=== PATIENT | female | born 1945 | race Caucasian/White ===

== ENCOUNTER 2016-08-22 09:22 | Inpatient (IN) | payer MEDICARE, OTHER ==
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
[2016-08-22 10:45] LABS: ALT 121 U/L (9-52); AST 90 U/L (14-36); Alkaline Phosphatase 26 U/L (38-126); Amylase <30 U/L (30-110); Anion Gap 10 mmol/L; Blood Urea Nitrogen 18 mg/dL (7-17); Calcium 8.8 mg/dL (8.4-10.2); Carbon Dioxide 30 mmol/L (22-30); Chloride 106 mmol/L (98-107); Glucose 97 mg/dL (74-99); Magnesium 1.7 mg/dL (1.6-2.3); Non-African American GFR(MDRD) >60 (>60 ml/min/1.73 sqM); Potassium 4.6 mmol/L (3.5-5.1); Sodium 146 mmol/L (137-145); Total Bilirubin 0.5 mg/dL (0.2-1.3); Total Protein 5.2 g/dL (6.3-8.2)
[2016-08-22 10:50] LABS: INR 1.5 (<1.1); Prothrombin Time 14.7 sec (9.0-12.0)
[2016-08-22 10:53] LABS: Aty Lym Flag Slight; CH 27.9; CHCM 31.3; HCT 36.8 % (34.0-46.0); HDW 2.23; HGB 11.7 gm/dL (11.4-16.0); MCH 28.6 pg (25.0-35.0); MCHC 31.9 g/dL (31.0-37.0); MCV 89.8 fL (80.0-100.0); Mean Platelet Volume 7.4; RDW 14.1 % (11.5-15.5); WBC 5.8 k/uL (3.8-10.6); WBC (Perox) 5.94
[2016-08-22 11:02] LABS: Creatine Kinase 21 U/L (30-135)
[2016-08-22 11:15] LABS: Creatine Kinase MB 0.5 ng/mL (0.0-2.4); Troponin I <0.012 ng/mL (0.000-0.034)
--- NOTE | 2016-08-22 11:15 | XR ---
EXAMINATION TYPE: XR chest 2V DATE OF EXAM: 08/22/2016 10:52 AM COMPARISON: Prior chest x-ray 04 August 2016 HISTORY: Chest pain, fall TECHNIQUE: Frontal and lateral views of the chest are obtained. FINDINGS: Heart remains enlarged. Patchy basilar density may reflect atelectasis or scarring. No pne umothorax or sizable effusion. Arthropathy noted within the shoulders. Pacemaker leads are stable. Th e patient is rotated. The osseous structures are intact. IMPRESSION: Cardiomegaly. Probable basilar atelectasis. Follow-up as indicated.
--- NOTE | 2016-08-22 11:16 | XR ---
Right shoulder HISTORY: Pain from fall 3 views of the right shoulder, comparison to prior exam November Bone mineralization and alignment are maintained. Hypertrophic change present at the acromioclavicula r joint. Marginal spurring present at the glenohumeral joint. IMPRESSION: No acute fracture or dislocation evident
--- NOTE | 2016-08-22 11:24 | CT ---
EXAMINATION TYPE: CT brain wo con DATE OF EXAM: 08/22/2016 10:45 AM COMPARISON: 01/20/2015 INDICATION: Patient had fall today DLP: 1040 mGycm, Automated exposure control for dose reduction was used. CONTRAST: None CT of the brain is performed utilizing 3 mm thick sections through the posterior fossa and 3 mm thick sections through the remaining calvarium. Study is performed within 24 hours of arri britton to the hospital. No abnormal hyperdensity is present to suggest an acute intracranial hemorrhage. No mass lesion is evident. No acute infarcts are evident. Ventricles and sulci are appropriate for the patient age. Paranasal sinuses and mastoid air cells within the [id number] are clear. IMPRESSIONS: 1. Normal CT Brain
--- NOTE | 2016-08-22 11:55 | US ---
EXAMINATION TYPE: US venous doppler duplex LE DATE OF EXAM: 08/22/2016 11:19 AM COMPARISON: Previous exam 22 May 2014 CLINICAL HISTORY: Swelling, pitting edema, bilaterally, large body habitus. SIDE PERFORMED: Bilateral VESSELS IMAGED: External Iliac Vein (EIV) Common Femoral Vein Deep Femoral Vein Greater Saphenous Vein * Femoral Vein Popliteal Vein Small Saphenous Vein * Proximal Calf Veins- not visualized bilaterally see above limitations (* superficial vessels) Right Leg: Negative for DVT Left Leg: Negative for DVT Grayscale, color Doppler, spectral Doppler imaging performed of the bilateral lower extremity veins f rom the level of the knee to the groin IMPRESSION: No deep venous thrombosis is evident of the lower extremities bilaterally
[2016-08-22 12:15] LABS: Add Differential Manual Differential
[2016-08-22 12:19] LABS: Nucleated Red Blood Cells 0 /100 WBC (0-0); Total Cells Counted 100
[2016-08-22 12:35] LABS: Appearance,Urine Clear (Clear); Bilirubin,Urine Negative (Negative); Glucose,Urine (UA) Negative (Negative); Ketones,Urine Trace (Negative); Leukocyte Esterase,Urine Moderate (Negative); Mucus,Urine Rare /hpf; Nitrite,Urine Negative (Negative); PH, Urine 5.5 (5.0-8.0); Particle Count 2055; Protein,Urine Trace (Negative); RBC,Urine 5 /hpf (0-5); Specific Gravity,Urine 1.018 (1.001-1.035); Squamous Epithelial Cell,Urine 1 /hpf (0-4); UA Billing (MACRO vs. MICRO) MICRO; Urobilinogen,Urine <2.0 mg/dL (<2.0); WBC,Urine 5 /hpf (0-5)
[2016-08-22] MEDS ORDERED: NALOXONE 0.4 MG/ML 1 ML VIAL IV PRN (14:12)
[2016-08-22] MEDS ORDERED: ACETAMINOPHEN TAB 325 MG TAB PO PRN (14:12)
[2016-08-22] MEDS ORDERED: ONDANSETRON 4 MG/2 ML VIAL IVP PRN (14:12)
--- NOTE | 2016-08-22 15:46 | XR ---
Right hip HISTORY: Trauma and pain 2 views of the right hip No comparisons Bone mineralization is mildly reduced. Joint space and alignment are maintained. Small ossific densit y at the level of the greater trochanter may be indicative of calcific tendinitis. There is an ill-de fined area of increased density within the soft tissues of the proximal thigh with some associated ca lcification measuring 1.7 cm. This is at the edge of the film. No periosteal reaction or cortical jj truction. IMPRESSION: No acute fracture or dislocation is evident. Findings within the soft tissues of the prox imal right thigh are indeterminate. Recommend dedicated imaging.
[2016-08-22] MEDS: oxyCODONE-APAP 10-325MG 1 EACH TAB PO SCH ×2 (17:49→22:26)
[2016-08-22] MEDS: clonazePAM 1 MG TAB PO SCH ×2 (17:49→22:26)
[2016-08-22 19:22] LABS: Creatine Kinase <20 U/L (30-135)
[2016-08-22 19:33] LABS: Creatine Kinase MB 0.4 ng/mL (0.0-2.4); Troponin I <0.012 ng/mL (0.000-0.034)
[2016-08-22] MEDS: ceFAZolin 1,000 MG in DEXTROSE/WATER 1 50ML.BAG IVPB SCH (23:14)
[2016-08-22 23:16] LABS: Creatine Kinase <20 U/L (30-135)
[2016-08-22] MEDS: RIVAROXABAN 10 MG TAB PO SCH (23:16)
[2016-08-22] MEDS: levETIRAcetam 500 MG TAB PO SCH (23:16)
[2016-08-22] MEDS: POTASSIUM CHLORIDE ER 20 MEQ TAB.ER PO SCH (23:17)
[2016-08-22] MEDS: ATORVASTATIN 20 MG TAB PO SCH (23:17)
[2016-08-22] MEDS: MAGNESIUM OXIDE 400 MG TAB PO SCH (23:17)
[2016-08-22] MEDS: FLECAINIDE 50 MG TAB PO SCH (23:17)
[2016-08-22 23:30] LABS: Creatine Kinase MB 0.4 ng/mL (0.0-2.4); Troponin I <0.012 ng/mL (0.000-0.034)
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
[2016-08-23 06:07] LABS: Aty Lym Flag Moderate; CH 27.9; CHCM 31.1; HCT 34.8 % (34.0-46.0); HDW 2.24; HGB 11.1 gm/dL (11.4-16.0); Hypochromasia Slight; MCH 28.6 pg (25.0-35.0); MCHC 31.8 g/dL (31.0-37.0); MCV 90.1 fL (80.0-100.0); Mean Platelet Volume 7.2; RBC 3.87 m/uL (3.80-5.40); RDW 14.3 % (11.5-15.5); WBC 4.7 k/uL (3.8-10.6); WBC (Perox) 4.99
[2016-08-23 06:21] LABS: Creatine Kinase <20 U/L (30-135)
[2016-08-23 06:34] LABS: Creatine Kinase MB 0.3 ng/mL (0.0-2.4); Troponin I <0.012 ng/mL (0.000-0.034)
[2016-08-23 06:36] LABS: ALT 109 U/L (9-52); AST 68 U/L (14-36); Add Differential Manual Differential; Alkaline Phosphatase 25 U/L (38-126); Anion Gap 8 mmol/L; Blood Urea Nitrogen 14 mg/dL (7-17); Calcium 8.7 mg/dL (8.4-10.2); Carbon Dioxide 32 mmol/L (22-30); Chloride 103 mmol/L (98-107); Glucose 90 mg/dL (74-99); Non-African American GFR(MDRD) >60 (>60 ml/min/1.73 sqM); Potassium 4.4 mmol/L (3.5-5.1); Sodium 143 mmol/L (137-145); Total Bilirubin 0.5 mg/dL (0.2-1.3); Total Protein 4.8 g/dL (6.3-8.2)
[2016-08-23 06:39] LABS: Nucleated Red Blood Cells 0 /100 WBC (0-0); Total Cells Counted 100
[2016-08-23 06:40] LABS: Manual Review Performed
[2016-08-23] MEDS: PANTOPRAZOLE 40 MG TABLET PO SCH (08:32)
[2016-08-23] MEDS: ceFAZolin 1,000 MG in DEXTROSE/WATER 1 50ML.BAG IVPB SCH ×2 (08:32→16:14)
[2016-08-23] MEDS: MAGNESIUM OXIDE 400 MG TAB PO SCH ×2 (08:33→22:14)
[2016-08-23] MEDS: FLUoxetine HCL 20 MG CAP PO SCH (08:33)
[2016-08-23] MEDS: levETIRAcetam 500 MG TAB PO SCH ×2 (08:33→22:14)
[2016-08-23] MEDS: FLECAINIDE 50 MG TAB PO SCH ×2 (08:34→22:14)
[2016-08-23] MEDS: POTASSIUM CHLORIDE ER 20 MEQ TAB.ER PO SCH (08:34)
[2016-08-23] MEDS: NADOLOL 20 MG TAB PO SCH (08:34)
[2016-08-23] MEDS: SODIUM CHLORIDE 0.9% 1,000 ML IV SCH ×2 (08:41→13:12)
[2016-08-23] MEDS: oxyCODONE-APAP 10-325MG 1 EACH TAB PO SCH ×4 (08:44→22:13)
[2016-08-23] MEDS: clonazePAM 1 MG TAB PO SCH ×4 (08:44→22:13)
[2016-08-23] MEDS ORDERED: FUROSEMIDE 20 MG TAB PO SCH (09:00)
[2016-08-23] MEDS ORDERED: METOLAZONE 2.5 MG TAB PO SCH (09:00)
[2016-08-23] MEDS: MULTIVITAMINS, THERA 1 EACH TAB PO SCH (13:11)
--- NOTE | 2016-08-23 14:18 | P.PN ---
Subjective 71-year-old female being seen on rounds currently resting in bed. Patient's initial presentation was to evaluation for bilateral lower extremity weakness with right shoulder pain with limited range of motion from the right shoulder due to a torn rotator cuff. Patient reportedly has been having increase difficulty participating in her normal ADLs without assistance. Patient reportedly has fallen at least 6 times within the last 48 hours prior to being admitted. Patient states that when she is at home she could barely stand from her toilet.. Patient states she's been very shaky with decreased endurance decrease mobility. Patient was just discharged proximally 2 weeks ago. At that time the patient was noted to have increased swelling of the bilateral lower extremities with pain. Patient states she's not sure why she is falling so much. Patient states that she is noted to be experiencing decrease endurance with limited mobility. Patient states that she does have home health set up and has been followed in the outpatient setting. Additionally patient states physical therapy in the home was supposed to be initiated this week. Patient stated that she had been concerned about the frequent falls 3 presented to the emergency room on August 22 to be reevaluated. X-rays involving the right hip obtained in the emergency room showed no acute fracture or dislocation. Dopplers to the lower extremities were negative for evidence of DVT bilaterally additionally the patient had an x-ray involving the right shoulder it showed no acute fracture as well. CAT scan of the brain obtained in the emergency room was negative as well Patient also states that she's had a recent EEG done at her primary neurologist Dr. diaz office done in July 2016. Objective - Vital Signs Vital signs: Vital Signs Temp 98.1 F 08/23/16 12:00 Pulse 72 08/23/16 12:00 Resp 18 08/23/16 12:00 BP 96/45 08/23/16 12:00 Pulse Ox 93 L 08/23/16 12:00 - Exam Physical exam 71-year-old female sitting up in bed talkative oriented 3 states that when she was up ambulating to the bathroom felt like her legs buckling or latex would give out. Patient reports having chronic right shoulder pain due to a rotator cuff Lungs on room air essentially clear Heart S1-S2 audible and regular denying chest pain Abdomen soft nontender reports no nausea vomiting Extremities no calf tenderness no pedal edema. Does report having chronic right shoulder pain due to rotator cuff - Labs CBC & Chem 7: 08/23/16 05:41 08/23/16 05:41 Assessment and Plan Plan: Impression Present on admission gait dysfunction generalized weakness limited mobility unclear etiology History of chronic atrial fibrillation rate controlled History of sleep apnea with CPAP therapy Mood disorder Anxiety depressive disorder nonspecified Echocardiogram October 2015 left ventricular systolic function normal EF 55-60% with no evidence of a [place] hypertension History of frequent falls unclear etiology Plan PT OT eval recommendations subacute rehab manager case management to pursue placement patient prefers [facility] Await neurology workup Obtain prior outpatient EEG report from Dr. Diaz office Resume home meds Fall precautions Repeat labs in the morning Further recommendations pending DVT and GI prophylaxis The above dictated assessment and findings were discussed with Dr. Mackay. Impression and the plan of care have been dictated as directed. Ev Zhu nurse practitioner acting as a scribe for Dr. Mackay
[2016-08-23] MEDS: TORSEMIDE 20 MG TAB PO SCH (14:19)
[2016-08-23 17:25] LABS: Appearance,Urine Clear (Clear); Bilirubin,Urine Negative (Negative); Glucose,Urine (UA) Negative (Negative); Ketones,Urine Negative (Negative); Leukocyte Esterase,Urine Negative (Negative); Nitrite,Urine Negative (Negative); Protein,Urine Negative (Negative); Specific Gravity,Urine 1.003 (1.001-1.035); UA Billing (MACRO vs. MICRO) CHEM; Urobilinogen,Urine <2.0 mg/dL (<2.0)
[2016-08-23 17:30] VITALS: RESP 16
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
[2016-08-23] MEDS: HYDROcodone/APAP 5-325MG 1 EACH TAB PO PRN (19:47)
[2016-08-23] MEDS: ATORVASTATIN 20 MG TAB PO SCH (22:14)
[2016-08-23] MEDS: RIVAROXABAN 10 MG TAB PO SCH (22:14)
[2016-08-24] MEDS: POTASSIUM CHLORIDE ER 20 MEQ TAB.ER PO SCH ×5 (00:54→20:26)
[2016-08-24] MEDS: ceFAZolin 1,000 MG in DEXTROSE/WATER 1 50ML.BAG IVPB SCH ×4 (00:54→23:36)
[2016-08-24] MEDS: SODIUM CHLORIDE 0.9% 1,000 ML IV SCH (06:39)
[2016-08-24] MEDS: TORSEMIDE 20 MG TAB PO SCH (08:11)
[2016-08-24] MEDS: MAGNESIUM OXIDE 400 MG TAB PO SCH ×3 (08:11→21:04)
[2016-08-24] MEDS: FLUoxetine HCL 20 MG CAP PO SCH (08:12)
[2016-08-24] MEDS: FLECAINIDE 50 MG TAB PO SCH ×2 (08:12→20:25)
[2016-08-24] MEDS: NADOLOL 20 MG TAB PO SCH (08:12)
[2016-08-24] MEDS: levETIRAcetam 500 MG TAB PO SCH ×2 (08:13→20:26)
[2016-08-24] MEDS: HYDROcodone/APAP 5-325MG 1 EACH TAB PO PRN ×2 (08:13→23:46)
[2016-08-24] MEDS: clonazePAM 1 MG TAB PO SCH ×4 (08:13→21:04)
[2016-08-24] MEDS: PANTOPRAZOLE 40 MG TABLET PO SCH (08:13)
[2016-08-24] MEDS: oxyCODONE-APAP 10-325MG 1 EACH TAB PO SCH ×4 (08:23→21:04)
[2016-08-24 09:16] LABS: ALT 87 U/L (9-52); AST 57 U/L (14-36); Alkaline Phosphatase 30 U/L (38-126); Anion Gap 12 mmol/L; Blood Urea Nitrogen 18 mg/dL (7-17); Calcium 8.6 mg/dL (8.4-10.2); Carbon Dioxide 38 mmol/L (22-30); Chloride 90 mmol/L (98-107); Glucose 147 mg/dL (74-99); Non-African American GFR(MDRD) >60 (>60 ml/min/1.73 sqM); Sodium 140 mmol/L (137-145); Total Bilirubin 0.5 mg/dL (0.2-1.3); Total Protein 5.5 g/dL (6.3-8.2)
[2016-08-24] MEDS ORDERED: Potassium Replacement Protocol 1 EACH MISC MISCELLANE PRN (09:36)
[2016-08-24 09:44] LABS: Aty Lym Flag Slight; CH 28.2; CHCM 31.8; HCT 38.6 % (34.0-46.0); HDW 2.22; HGB 12.3 gm/dL (11.4-16.0); MCH 28.3 pg (25.0-35.0); MCHC 31.8 g/dL (31.0-37.0); Mean Platelet Volume 7.8; RBC 4.34 m/uL (3.80-5.40); RDW 14.4 % (11.5-15.5); WBC 5.6 k/uL (3.8-10.6); WBC (Perox) 5.59
[2016-08-24] MEDS ORDERED: POTASSIUM CHLORIDE 10 MEQ, LIDOCAINE 2% INJ 10 MG in SODIUM CHLORIDE 0.9% 100 ML IV SCH (10:00)
--- NOTE | 2016-08-24 10:16 | EEG ---
DATE OF SERVICE: 08/23/[address] Mackay. INTERPRETING PHYSICIAN: Dr. Meli Daniel INDICATIONS FOR EXAMINATION: This patient is a 71-year-old female being evaluated for multiple falls and questionable seizure disorder. AGE: 71Y EEG FINDINGS: A routine 21-channel, awake digital EEG recording was accomplished utilizing the 10 to 20 international system with bipolar and referential montages. The background activity in the most alert resting state consists of a low to medium amplitude, fairly well-developed and well sustained 7 to 8 Hz activity over the posterior head regions. There is a small amount of low amplitude 18 to 20 Hz beta activity seen maximally over the anterior head regions. Muscle and movement artifact was noted on several occasions throughout the tracing. Hyperventilation was not performed. Photic stimulation at flash frequencies of 2 to 30 Hz produced a minimal occipital driving response. No epileptiform discharges were seen. IMPRESSION: This EEG is within normal limits for the patient's age. The EEG failed to reveal any focal, lateralized or epileptiform abnormalities. Clinical correlation is recommended.
[2016-08-24] MEDS: MULTIVITAMINS, THERA 1 EACH TAB PO SCH (11:40)
[2016-08-24 12:21] LABS: Add Differential Manual Differential
[2016-08-24 12:24] LABS: Nucleated Red Blood Cells 0 /100 WBC (0-0); Total Cells Counted 100
[2016-08-24 12:25] LABS: Manual Review Performed
--- NOTE | 2016-08-24 14:36 | P.PN ---
Subjective 71-year-old female currently resting in bed. Continues to report having weakness involving the bilateral lower extremities. Did note the patient's magnesium and potassium level are low potassium this morning is 3. The magnesium level is 1.3. Patient was given Demadex yesterday as a diuretic. Patient is aware of the discharge plan and electrolytes can be corrected and replaced patient will be transferred to subacute rehab [facility] patient's choice Objective - Vital Signs Vital signs: Vital Signs Temp 96.8 F L 08/24/16 07:00 Pulse 89 08/24/16 07:00 Resp 16 08/24/16 07:00 BP 110/56 08/24/16 07:00 Pulse Ox 92 L 08/24/16 07:00 Intake & Output 08/23/16 08/24/16 08/24/16 18:59 06:59 18:59 Weight 99.5 kg Other: # Voids 1 4 1 # Bowel Movements 0 - Exam Physical exam 71-year-old female sitting up in bed talkative oriented 3 states continues to report feeling increased fatigue decreased endurance Lungs on room air essentially clear Heart S1-S2 audible and regular denying chest pain Abdomen soft nontender reports no nausea vomiting Extremities no calf tenderness no pedal edema. Does report having chronic right shoulder pain due to rotator cuff - Labs CBC & Chem 7: 08/24/16 08:29 08/24/16 08:29 Labs: Abnormal Lab Results - Last 24 Hours (Table) 08/24/16 08/24/16 Range/Units 08:29 08:29 Potassium 3.0 L* (3.5-5.1) mmol/L Chloride 90 L (98-107) mmol/L Carbon Dioxide 38 H (22-30) mmol/L BUN 18 H (7-17) mg/dL Glucose 147 H (74-99) mg/dL Magnesium 1.3 L (1.6-2.3) mg/dL AST 57 H (14-36) U/L ALT 87 H (9-52) U/L Alkaline Phosphatase 30 L (38-126) U/L Total Protein 5.5 L (6.3-8.2) g/dL Albumin 3.1 L (3.5-5.0) g/dL Microbiology - Last 24 Hours (Table) 08/23/16 17:15 Urine Culture - Preliminary Urine,Clean Catch Assessment and Plan Plan: Impression Present on admission gait dysfunction generalized weakness limited mobility unclear etiology History of chronic atrial fibrillation rate controlled History of sleep apnea with CPAP therapy Mood disorder Anxiety depressive disorder nonspecified Echocardiogram October 2015 left ventricular systolic function normal EF 55-60% with no evidence of a [place] hypertension History of frequent falls unclear etiology Severe electrolyte abnormality hypo-magnesium and hypokalemia Plan PT OT eval recommendations subacute rehab case packer and sealer to pursue placement patient prefers [facility] Resume home meds Fall precautions Repeat labs in the morning Further recommendations pending DVT and GI prophylaxis Replace her magnesium and potassium repeat the labs in the morning The above dictated assessment and findings were discussed with Dr. Mackay. Impression and the plan of care have been dictated as directed. Ev Zhu nurse practitioner acting as a scribe for Dr. Mackay
[2016-08-24] MEDS: MAGNESIUM SULFATE-D5W PMX 1 GM in DEXTROSE/WATER 1 100ML.BAG IVPB SCH ×3 (14:37→17:49)
--- NOTE | 2016-08-24 17:15 | CDI ---
In responding to this query, please exercise your independent professional judgment. The [facility] Coding Staff and Clinical Documentation Specialists appreciate your assistance in clarifying documentation, maintaining compliance with coding guidelines, accurately documenting patients condition and capturing severity of illness. The fact that a question is asked does not imply that any particular answer is desired or expected. Communication forms are a method of clarifying documentation and are not made part of the Legal Health Record. Thank you in advance for your clarification. Last Revision, June 2015 Jose Almonte [address] [place] [address] Documentation Clarification Form Date: 08/24/2016 5:05:00 PM From: [place] Admit Date: 08/23/2016 1:04:00 PM Patient Name: Zari Mae Visit Number: [id number] Dr. James Mackay and Ev Zhu NP Patient is receiving IV Kefzol per OCT. Patient history/risk factors Severe redness, swelling of lower extremities admitted with cellulitis per H&P and then dropped from dictation Falls and weakness Noncompliant with medications Clinical Indicators: Lab findings: wbc 5.8 on admission Chest xray: probable atelectasis on 08/22 Venous Doppler on 08/22: negative for DVT bilateral low extremities Vital Signs: stable on admission Treatment: Consults: Neurology IV Kefzol In your professional opinion, can you please clarify why the patient is receiving IV Kefzol? Cellulitis (please specify location) - Ruled In? - Ruled Out? Other type of infection (please specify) Unable to determine Please document in your progress notes and discharge summary in order to capture severity of illness and risk of mortality. Include clinical findings that support your diagnosis. FYI: Press F11 to launch patient chart. Place X here if this finding has no clinical significance, is not applicable or if you are not able to provide any additional documentation. [place]
[2016-08-24] MEDS: ATORVASTATIN 20 MG TAB PO SCH (20:26)
[2016-08-24] MEDS: RIVAROXABAN 10 MG TAB PO SCH (20:26)
[2016-08-24] MEDS: diphenhydrAMINE 25 MG CAP PO PRN (21:06)
--- NOTE | 2016-08-25 01:23 | P.PN ---
Subjective Patient is a 71 year old female being evaluated for bilateral leg weakness. Patient states that her leg symptoms have not changed from yesterday. We did have her undergo a laboratory tests for creatine kinase to rule out early myopathy. She has been on statin medication for several years. The patient is being evaluated for transfer to subacute rehab at [facility] on the [place]. She denies any headache or focal weakness at this time. She would benefit from aggressive PT OT evaluations to get her up and ambulating without difficulty in the future. The patient is still expressing desires to try and go home rather than to the [facility]. We have recommended that she be evaluated in the subacute rehab unit first for at least a week or 2 before discharge to her home. We will continue to follow her progress closely. Her overall prognosis at this time remains guarded. She has had no further seizure activity. We are still awaiting her anticonvulsant blood levels to return from the laboratory. We will continue to follow her very closely over the next few days. Objective - Vital Signs Vital signs: Vital Signs Temp 97.1 F L 08/24/16 15:00 Pulse 76 08/24/16 15:00 Resp 16 08/24/16 15:00 BP 94/44 08/24/16 15:00 Pulse Ox 93 L 08/24/16 15:00 Intake & Output 08/24/16 08/24/16 08/25/16 06:59 18:59 06:59 Weight 99.5 kg Other: # Voids 4 1 # Bowel Movements 0 - Exam Physical examination: PHYSICAL EXAMINATION: Patient is resting comfortably in bed. VITAL SIGNS: Blood pressure is [114/53]. Heart rate is [72]. Respiration is [16] . Temperature is [97.1]. HEENT: Head is atraumatic, neck is supple, there were no carotid bruits. CHEST: Lungs are clear to auscultation and percussion. CARDIAC: S1, S2 normal rate and rhythm. There is no murmur. ABDOMEN: Soft and nontender. Bowel sounds are present. EXTREMITIES: There is no pedal edema. Peripheral pulses are present. Neurological examination: This patient's neurological examination is unchanged from yesterday. She continues to have bilateral lower extremity weakness as well as tenderness on palpation of several muscle groups. - Labs CBC & Chem 7: 08/24/16 08:29 08/24/16 14:37 Labs: Abnormal Lab Results - Last 24 Hours (Table) 08/24/16 08/24/16 Range/Units 08:29 08:29 Potassium 3.0 L* (3.5-5.1) mmol/L Chloride 90 L (98-107) mmol/L Carbon Dioxide 38 H (22-30) mmol/L BUN 18 H (7-17) mg/dL Glucose 147 H (74-99) mg/dL Magnesium 1.3 L (1.6-2.3) mg/dL AST 57 H (14-36) U/L ALT 87 H (9-52) U/L Alkaline Phosphatase 30 L (38-126) U/L Total Protein 5.5 L (6.3-8.2) g/dL Albumin 3.1 L (3.5-5.0) g/dL Microbiology - Last 24 Hours (Table) 08/23/16 17:15 Urine Culture - Final Urine,Clean Catch Assessment and Plan (1) Complex partial seizure disorder Status: Acute Code(s): G40.209 - LOCAL-REL SYMPTC EPI W CMPLX PRT SEIZ,NOT NTRCT,W/O STAT EPI (2) Muscle weakness of lower extremity Status: Acute Code(s): M62.81 - MUSCLE WEAKNESS (GENERALIZED) (3) Chronic atrial fibrillation Status: Acute Code(s): I48.2 - CHRONIC ATRIAL FIBRILLATION (4) Dehydration Status: Acute Code(s): E86.0 - DEHYDRATION (5) Hyperlipemia Status: Acute Code(s): E78.5 - HYPERLIPIDEMIA, UNSPECIFIED Plan: This patient is a 71-year-old right-handed white female admitted to hospital with history of multiple falls over the past 2-1/2 weeks at home. She was brought into the emergency room where she was further evaluated. She underwent a computed tomography scan of the brain which failed to reveal any acute changes. This was reported negative for acute stroke and hemorrhage. She has a history of underlying seizure disorder and has been taking Keppra monotherapy for seizure prophylaxis. We have ordered a Keppra blood level and we'll adjust as necessary. She underwent a repeat EEG today which was reviewed and is within normal limits for age with no active seizure focus. She does have evidence of muscle weakness in both lower extremities. There is some degree of myalgia and arthralgias at the knee joint. We have recommended to check a creatine kinase level to rule out early myopathy. Patient should continue with PT OT evaluation for possible subacute rehab placement. Laboratory testing reveals the patient to have normal CK blood levels. This appears to be unlikely cause of her muscle pain and tenderness. We would recommend that she strongly consider undergoing inpatient rehab. Her overall prognosis at this time remains guarded. We will continue close neurological follow-up for the patient during this admission.
[2016-08-25] MEDS: SODIUM CHLORIDE 0.9% 1,000 ML IV SCH (02:10)
[2016-08-25] MEDS: HYDROcodone/APAP 5-325MG 1 EACH TAB PO PRN (03:55)
[2016-08-25 07:57] VITALS: BP 108/83; PULSE 86; TEMP 97
[2016-08-25] MEDS: FLECAINIDE 50 MG TAB PO SCH (07:59)
[2016-08-25] MEDS: PANTOPRAZOLE 40 MG TABLET PO SCH (07:59)
[2016-08-25] MEDS: clonazePAM 1 MG TAB PO SCH ×2 (07:59→13:12)
[2016-08-25] MEDS: ceFAZolin 1,000 MG in DEXTROSE/WATER 1 50ML.BAG IVPB SCH (07:59)
[2016-08-25] MEDS: MAGNESIUM OXIDE 400 MG TAB PO SCH (08:00)
[2016-08-25] MEDS: FLUoxetine HCL 20 MG CAP PO SCH (08:00)
[2016-08-25] MEDS: NADOLOL 20 MG TAB PO SCH (08:00)
[2016-08-25] MEDS: levETIRAcetam 500 MG TAB PO SCH (08:00)
[2016-08-25] MEDS: oxyCODONE-APAP 10-325MG 1 EACH TAB PO SCH ×2 (08:01→13:12)
[2016-08-25] MEDS: TORSEMIDE 20 MG TAB PO SCH (08:01)
[2016-08-25] MEDS: POTASSIUM CHLORIDE ER 20 MEQ TAB.ER PO SCH (08:01)
[2016-08-25 09:24] LABS: ALT 60 U/L (9-52); AST 40 U/L (14-36); Alkaline Phosphatase 31 U/L (38-126); Anion Gap 13 mmol/L; Blood Urea Nitrogen 21 mg/dL (7-17); Carbon Dioxide 33 mmol/L (22-30); Chloride 92 mmol/L (98-107); Glucose 115 mg/dL (74-99); Non-African American GFR(MDRD) >60 (>60 ml/min/1.73 sqM); Potassium 3.6 mmol/L (3.5-5.1); Sodium 138 mmol/L (137-145); Total Bilirubin 0.4 mg/dL (0.2-1.3); Total Protein 5.5 g/dL (6.3-8.2)
[2016-08-25] MEDS: diphenhydrAMINE 25 MG CAP PO PRN (10:32)
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
[2016-08-25] MEDS ORDERED: HYDROCORTISONE 10 MG TAB PO SCH (13:00)
[2016-08-25] MEDS: MULTIVITAMINS, THERA 1 EACH TAB PO SCH (13:12)
--- NOTE | 2016-08-25 13:18 | P.DS ---
Providers Date of admission: 08/23/16 13:04 Expected date of discharge: 08/25/16 Attending physician: James Forde Consults: 08/25/16 08:25 Consult Physician Routine Consulting Provider: Christianne Palmer Consult Reason/Comments: adrenal insufficiency/copd Do you want consulting provider notified?: Yes Primary care physician: [facility] Course: Patient's initial presentation was to evaluation for bilateral lower extremity weakness with right shoulder pain with limited range of motion from the right shoulder due to a chronic torn rotator cuff. Patient reportedly has been having increase difficulty participating in her normal ADLs without assistance. Patient reportedly has fallen at least 6 times within the last 48 hours prior to being admitted. Patient states that when she is at home she could barely stand from her toilet.. Patient states she's been very shaky with decreased endurance decrease mobility. Patient was just discharged 2 weeks ago. At that time the patient was noted to have increased swelling of the bilateral lower extremities with pain. Patient states she's not sure why she is falling so much. Patient states that she is noted to be experiencing decrease endurance with limited mobility. Patient states that she does have home health set up and has been followed in the outpatient setting. Additionally patient states physical therapy in the home was supposed to be initiated this week. Patient stated that she had been concerned about the frequent falls presented to the emergency room on August 22 to be reevaluated. X-rays involving the right hip obtained in the emergency room showed no acute fracture or dislocation. Dopplers to the lower extremities were negative for evidence of DVT bilaterally additionally the patient had an x-ray involving the right shoulder it showed no acute fracture as well. CAT scan of the brain obtained in the emergency room was negative as well Patient also states that she's had a recent EEG done at her primary neurologist Dr. hager office done in July 2016. Dr. Senthil Daniel neurology did see patient at the request of the attending for multiple falls with possible seizure disorder. They recommended that the patient have a repeat EEG which was done which showed no acute findings CPK was not elevated it was 30. Patient's magnesium and potassium were corrected. Additionally patient's cortisone level was repeated on the 6 it was noted to be normal at 12 . Physical and occupational therapy recommended that the patient would benefit from subacute rehab given the patient's history of frequent falls Pulmonary consultation was requested patient was seen by dr holland . Patient does have a history of COPD with asthma and does follow-up with Dr. Ross in the office. Patient reportedly does wear [id number] supplemental oxygen 2-3 L. Additionally patient stated that she's been told she has obstructive sleep apnea but does not wear CPAP patient states she cannot tolerate it causes sores on her face. Additionally patient reports having a history of a pulmonary emboli diagnosed in 2009 has been on Xarelto . Patient does have a history of smoking 1 pack a day for 20 years quit 25 years ago. Does have a home nebulizers states she uses it 4 times daily. Pulmonary recommended continuing with the current recommendations that there is no evidence of an acute exacerbation of COPD and from a pulmonary perspective patient could be transferred to subacute rehab On the day of transfer the patient from all consulting physicians was felt to be medically stable and appropriate proceed with a transfer to [facility] patient' s choice for subacute rehab impression discharge diagnosis Chronic hypoxic respiratory failure supplemental home O2 2-3 L [id number] COPD with asthma no evidence of acute exacerbation stable History of a pulmonary emboli 2009 on Xarelto Obstructive sleep apnea noncompliant with CPAP therapy Former tobacco abuse quit 25 years prior Present on admission mild cellulitis bilateral lower extremities Present on admission gait dysfunction generalized weakness limited mobility unclear etiology History of chronic atrial fibrillation rate controlled Mood disorder Anxiety depressive disorder nonspecified Echocardiogram October 2015 left ventricular systolic function normal EF 55-60% with no evidence of a [place] hypertension History of frequent falls unclear etiology Severe electrolyte abnormality hypo-magnesium and hypokalemia History of an adrenal insufficiency History of a seizure disorder on Keppra Chronic pain with narcotic tendency The above dictated assessment and findings were discussed with dr eula San and the plan of care have been dictated as directed. Ev Zhu nurse practitioner acting as a scribe for dr forde Patient Condition at Discharge: Stable Plan - Discharge Summary New Discharge Prescriptions: Cephalexin [Keflex] 500 mg PO Q8H #21 capsule HYDROcodone/APAP 5-325MG [Jermyn 5-325] 1 each PO Q4HR PRN #30 tab PRN Reason: Moderate Pain Magnesium Oxide [Mag-Ox] 400 mg PO TID #90 tablet Torsemide [Demadex] 20 mg PO DAILY #30 tab oxyCODONE-APAP 10-325MG [Percocet 10-325 mg] 1 tab PO QID #30 tab Discharge Medication List Omeprazole 40 mg PO QAM 07/07/14 [History] Rivaroxaban [Xarelto] 20 mg PO HS 07/07/14 [History] Nadolol [Corgard] 20 mg PO DAILY 07/08/14 [History] Simvastatin [Zocor] 40 mg PO HS 07/08/14 [History] diphenhydrAMINE HCL [Benadryl] 25 mg PO DAILY PRN 11/24/15 [History] Flecainide Acetate [Tambocor] 100 mg PO Q12HR 02/16/16 [History] Multivitamins, Thera [Multivitamin] 1 tab PO DAILY 02/16/16 [History] Potassium Chloride [Klor-Con 20] 40 meq PO BID 02/17/16 [History] clonazePAM [KlonoPIN] 1 mg PO QID 02/17/16 [History] FLUoxetine HCL [Sarafem] 60 mg PO QAM 08/04/16 [History] levETIRAcetam [Keppra] 1,500 mg PO Q12HR 08/04/16 [History] Metolazone [Zaroxolyn] 2.5 mg PO Q48H 08/22/16 [History] Cephalexin [Keflex] 500 mg PO Q8H #21 capsule 08/25/16 [Rx] HYDROcodone/APAP 5-325MG [Jermyn 5-325] 1 each PO Q4HR PRN #30 tab 08/25/16 [Rx] Magnesium Oxide [Mag-Ox] 400 mg PO TID #90 tablet 08/25/16 [Rx] Torsemide [Demadex] 20 mg PO DAILY #30 tab 08/25/16 [Rx] oxyCODONE-APAP 10-325MG [Percocet 10-325 mg] 1 tab PO QID #30 tab 08/25/16 [Rx] Follow up Appointment(s)/Referral(s): James Forde MD [Primary Care Provider] - 1-2 days Patient Instructions/Handouts: Heart Failure (DC) Discharge Disposition: TRANSFER TO SNF/ECF
--- NOTE | 2016-08-25 19:54 | P.PN ---
Subjective Patient is a 71 year old female being evaluated for bilateral leg weakness. Patient states that her leg symptoms have not changed from yesterday. We did have her undergo a laboratory tests for creatine kinase to rule out early myopathy. She has been on statin medication for several years. The patient is being evaluated for transfer to subacute rehab at [facility] on the [address] [place]. She denies any headache or focal weakness at this time. She would benefit from aggressive PT OT evaluations to get her up and ambulating without difficulty in the future. The patient is still expressing desires to try and go home rather than to the [facility]. We have recommended that she be evaluated in the subacute rehab unit first for at least a week or 2 before discharge to her home. We will continue to follow her progress closely. Her overall prognosis at this time remains guarded. She has had no further seizure activity. We are still awaiting her anticonvulsant blood levels to return from the laboratory. Patient is being considered for transfer to subacute rehab later today. We are still awaiting her final results on the Kera blood level for seizure management. We will check her level and adjust her medication if necessary. We will continue to follow her very closely over the next few days. Objective - Vital Signs Vital signs: Vital Signs Temp 97.0 F L 08/25/16 07:56 Pulse 86 08/25/16 07:56 Resp 16 08/25/16 07:56 BP 108/83 08/25/16 07:56 Pulse Ox 91 L 08/25/16 07:56 Intake & Output 08/24/16 08/25/16 08/25/16 18:59 06:59 18:59 Intake Total 600 Balance 600 Weight 90.5 kg Intake: Intake, IV Titration 600 Amount Sodium Chloride 0.9% 1, 550 000 ml @ 50 mls/hr IV . Q20H [facility] Rx#:[id number] ceFAZolin 1,000 mg In 50 Dextrose/Water 1 50ml.bag @ 100 mls/hr IVPB Q8HR [facility] Rx#:[id number] Other: Voiding Method Toilet # Voids 1 0 2 - Exam Physical examination: PHYSICAL EXAMINATION: Patient is resting comfortably in bed. VITAL SIGNS: Blood pressure is [108/83]. Heart rate is [86]. Respiration is [16] . Temperature is [97.0]. HEENT: Head is atraumatic, neck is supple, there were no carotid bruits. CHEST: Lungs are clear to auscultation and percussion. CARDIAC: S1, S2 normal rate and rhythm. There is no murmur. ABDOMEN: Soft and nontender. Bowel sounds are present. EXTREMITIES: There is no pedal edema. Peripheral pulses are present. Neurological examination: This patient's neurological examination is unchanged from yesterday. She continues to have bilateral lower extremity weakness as well as tenderness on palpation of several muscle groups. - Labs CBC & Chem 7: 08/24/16 08:29 08/25/16 08:24 Labs: Abnormal Lab Results - Last 24 Hours (Table) 08/24/16 08/25/16 Range/Units 08:29 08:24 Chloride 92 L (98-107) mmol/L Carbon Dioxide 33 H (22-30) mmol/L BUN 21 H (7-17) mg/dL Glucose 115 H (74-99) mg/dL AST 40 H (14-36) U/L ALT 60 H (9-52) U/L Alkaline Phosphatase 31 L (38-126) U/L Total Protein 5.5 L (6.3-8.2) g/dL Albumin 3.0 L (3.5-5.0) g/dL Levetiracetam 66.8 H (3.0-60.0) ug/mL Microbiology - Last 24 Hours (Table) 08/23/16 17:15 Urine Culture - Final Urine,Clean Catch Assessment and Plan (1) Complex partial seizure disorder Status: Acute Code(s): G40.209 - LOCAL-REL SYMPTC EPI W CMPLX PRT SEIZ,NOT NTRCT,W/O STAT EPI (2) Muscle weakness of lower extremity Status: Acute Code(s): M62.81 - MUSCLE WEAKNESS (GENERALIZED) (3) Chronic atrial fibrillation Status: Acute Code(s): I48.2 - CHRONIC ATRIAL FIBRILLATION (4) Dehydration Status: Acute Code(s): E86.0 - DEHYDRATION (5) Hyperlipemia Status: Acute Code(s): E78.5 - HYPERLIPIDEMIA, UNSPECIFIED Plan: This patient is a 71-year-old right-handed white female admitted to hospital with history of multiple falls over the past 2-1/2 weeks at home. She was brought into the emergency room where she was further evaluated. She underwent a computed tomography scan of the brain which failed to reveal any acute changes. This was reported negative for acute stroke and hemorrhage. She has a history of underlying seizure disorder and has been taking Keppra monotherapy for seizure prophylaxis. We have ordered a Keppra blood level and we'll adjust as necessary. She underwent a repeat EEG today which was reviewed and is within normal limits for age with no active seizure focus. She does have evidence of muscle weakness in both lower extremities. There is some degree of myalgia and arthralgias at the knee joint. We have recommended to check a creatine kinase level to rule out early myopathy. Patient should continue with PT OT evaluation for possible subacute rehab placement. Laboratory testing reveals the patient to have normal CK blood levels. This appears to be unlikely cause of her muscle pain and tenderness. We would recommend that she strongly consider undergoing inpatient rehab. Patient may be discharged to a subacute rehab center later today. Her overall prognosis at this time remains guarded. We will continue close neurological follow-up for the patient during this admission.
== END 2016-08-25 15:38 | DRG 603 ==
LOC: EC 09:22 → 3OBS 14:12 → OBSVTOIN 08-23 13:04 → 4MS4W 08-23 14:25
PROVIDERS: ADMIT Family Medicine; ATTEND Family Medicine
DX: L03.115 Cellulitis of right lower limb (principal); J96.11 Chronic respiratory failure with hypoxia; E27.40 Unspecified adrenocortical insufficiency; G40.209 Localization-related (focal) (partial) symptomatic epilepsy and epileptic syndromes with complex partial seizures, not intractable, without status epilepticus; I48.0 Paroxysmal atrial fibrillation; I50.9 Heart failure, unspecified; E83.42 Hypomagnesemia; F32.9 Major depressive disorder, single episode, unspecified; I48.2 Chronic atrial fibrillation; L03.116 Cellulitis of left lower limb; E78.5 Hyperlipidemia, unspecified; E86.0 Dehydration; E87.6 Hypokalemia; F41.9 Anxiety disorder, unspecified; G47.33 Obstructive sleep apnea (adult) (pediatric); G89.29 Other chronic pain; J44.9 Chronic obstructive pulmonary disease, unspecified; J45.909 Unspecified asthma, uncomplicated; K21.9 Gastro-esophageal reflux disease without esophagitis; M19.90 Unspecified osteoarthritis, unspecified site; M79.7 Fibromyalgia; M81.0 Age-related osteoporosis without current pathological fracture; G43.909 Migraine, unspecified, not intractable, without status migrainosus; L40.9 Psoriasis, unspecified; R29.6 Repeated falls; I25.10 Atherosclerotic heart disease of native coronary artery without angina pectoris; M54.9 Dorsalgia, unspecified; R26.9 Unspecified abnormalities of gait and mobility; R53.1 Weakness; M75.101 Unspecified rotator cuff tear or rupture of right shoulder, not specified as traumatic; Z99.81 Dependence on supplemental oxygen; Z91.19 Patient's noncompliance with other medical treatment and regimen; Z91.040 Latex allergy status; Z88.5 Allergy status to narcotic agent; Z88.8 Allergy status to other drugs, medicaments and biological substances; Z79.01 Long term (current) use of anticoagulants; Z79.899 Other long term (current) drug therapy; Z87.891 Personal history of nicotine dependence; Z85.51 Personal history of malignant neoplasm of bladder; Z95.0 Presence of cardiac pacemaker; Z82.49 Family history of ischemic heart disease and other diseases of the circulatory system
CPT/HCPCS: 36415; 70450; 71020; 73502; 80053; 80177; 81001; 81003; 82150; 82533; 82550; 82553; 83690; 83735; 83880; 84132; 84484; 85025; 85610; 85730; 87086; 93005; 93965; 93970; 95816; 96365; 96366; 99285

== ENCOUNTER → 2016-10-27 | Outpatient (CLI) | payer MEDICARE, OTHER ==
[2016-10-27 13:11] LABS: Blood Urea Nitrogen 14 mg/dL (7-17); Non-African American GFR(MDRD) >60 (>60 ml/min/1.73 sqM)
--- NOTE | 2016-10-27 14:28 | CT ---
EXAMINATION TYPE: CT chest w con DATE OF EXAM: 10/27/2016 2:15 PM COMPARISON: 02/09/2015 HISTORY: 71-year-old female with COPD and asthma, patient currently on O2, shortness of breath and ch est pain. TECHNIQUE: Contiguous axial scanning of the chest after the administration of 100 mL of Omnipaque 300 . Coronal/sagittal reconstructions performed. CT DLP: 470.7mGycm. Automatic exposure control utilized for a dose reduction. FINDINGS: Left anterior chest wall pacemaker generator with right atrial and right ventricular leads. Heart is upper limits of normal in size without pericardial effusion. Ascending aorta is ectatic at 3.7 cm. Conventional arch vessel branching anatomy. 1.8 cm left thyroid lobe nodule similar to 02/09/2015. No thoracic lymphadenopathy. There is enlarged caliber to the main right and left pulmonary arteries and 2.7 and 2.9 cm, respectiv soha, suggesting underlying pulmonary arterial hypertension. Mild dependent atelectasis. Additional strandy atelectasis or scarring at the lung bases similar to p rior. A couple scattered emphysematous cysts are present. Visualized upper abdomen shows no gross abnormality. Endplate spondylotic change throughout the thoracic spine. IMPRESSION: 1. Correlate for underlying pulmonary arterial hypertension. A couple scattered emphysematous cysts a re noted. 2. Strandy atelectasis and scarring at the lung bases. Otherwise, no acute pulmonary process. 3. Stable 1.8 cm left thyroid lobe nodule as compared to 02/09/2015.
== END | disposition home or self-care (01) ==
LOC: RADCTMAIN 12:34
PROVIDERS: ATTEND Internal Medicine Sleep Medicine
DX: J43.9 Emphysema, unspecified (principal); J98.11 Atelectasis; J98.4 Other disorders of lung
CPT/HCPCS: 82565; 84520; 71260; 36415; Q9967

== ENCOUNTER → 2016-11-07 | Outpatient (CLI) | payer MEDICARE, OTHER ==
[2016-11-07 12:08] LABS: Anion Gap 10 mmol/L; Blood Urea Nitrogen 16 mg/dL (7-17); Calcium 9.5 mg/dL (8.4-10.2); Carbon Dioxide 33 mmol/L (22-30); Chloride 99 mmol/L (98-107); Glucose 87 mg/dL (74-99); Magnesium 1.6 mg/dL (1.6-2.3); Non-African American GFR(MDRD) >60 (>60 ml/min/1.73 sqM); Potassium 4.5 mmol/L (3.5-5.1); Sodium 142 mmol/L (137-145)
--- NOTE | 2016-11-07 13:01 | NM ---
EXAMINATION TYPE: NM thyroid image only DATE OF EXAM: 11/07/2016 12:11 PM COMPARISON: 10/23/2012 HISTORY: 71-year-old female abnormal thyroid labs TECHNIQUE: After the intravenous administration of 11.0 mCi Tc 99m Sodium pertechnetate, thyroid imag ing was performed anterior and oblique projections. FINDINGS: There is redemonstrated nodular focus of iodine uptake in the region of the thyroid isthmus. However, this area no longer shows as intense uptake as seen on the 2012 exam. This suggests a warm nodule. A lso, there is a possible photopenic area along the left lower pole that could represent a cold nodule . IMPRESSION: 1. Correlation with thyroid ultrasound is recommended to further assess these findings: 2. Apparent warm nodule involving the thyroid isthmus. Depending on size and characteristics seen on ultrasound, FNA may be indicated. 3. Possible cold nodule left lower pole. Again, depending on size and characteristics seen on ultraso und, FNA may be indicated.
== END | disposition home or self-care (01) ==
LOC: RADNMMAIN 11:10
PROVIDERS: ATTEND Family Medicine
DX: R94.6 Abnormal results of thyroid function studies (principal)
CPT/HCPCS: 80048; 80177; 83735; 36415; 78013; A9512

== ENCOUNTER → 2016-11-14 | Outpatient (CLI) | payer MEDICARE, OTHER ==
[~2016-11-14] MED LIST: REGADENOSON 0.4 MG/5 ML SYRINGE IV ONE
--- NOTE | 2016-11-14 12:15 | NM ---
EXAMINATION TYPE: NM stress lexiscan cardiolite DATE OF EXAM: 11/14/2016 12:03 PM COMPARISON: NONE HISTORY: Chest pain TECHNIQUE: After the intravenous administration of 9.8 mCi Tc 99m Sestamibi - Cardiolite resting SPE CT images acquired 45 minutes post injection. The patient received 0.4mg Lexiscan, 24.9 mCi Tc 99m Sestamibi - Stress images obtained [address] injection FINDINGS: Review of stress and rest SPECT images demonstrates question of an apical lateral perfusion defect. G ated analysis shows normal wall motion with an estimated left ventricular ejection fraction of 61 %. IMPRESSION: Findings suggestive of a small stress-induced reversible area of ischemia involving the apical latera l myocardium may be artifactual correlate clinically to exclude a small area of reversible ischemia.
--- NOTE | 2016-11-14 13:52 | EST ---
DATE OF SERVICE: 11/14/2016 AGE: 71Y SEX: F HT: 5'7" WT: 200 lbs. Lexiscan Cardiolite Stress Test *Heart Rate Blood Pressure *Rest: 60 Rest: 105/65 * *Max. Achieved: 69 Maximum BP: 115/66 85% PMHR: 128 100% PMHR: 151 *METS: - INDICATIONS: CHF MEDICATIONS: - Baseline rhythm is sinus mechanism, rate of 60, normal axis and intervals. Normal electrocardiogram. Baseline blood pressure 105/65 mmHg. Patient received an injection of Lexiscan. Electrocardiograph monitoring revealed no evidence of diagnostic ischemic ST deviation. Cardiolite was injected per protocol. CONCLUSION: 1. Nondiagnostic electrocardiograph stress testing. 2. Nuclear images will be reported separately.
== END | disposition home or self-care (01) ==
LOC: RADNMMAIN 08:11
PROVIDERS: ATTEND Family Medicine
DX: I50.9 Heart failure, unspecified (principal)
CPT/HCPCS: 93017; 78452; A9500; J2785

== ENCOUNTER 2016-12-18 12:20 | Day surgery (SDC) | payer MEDICARE, OTHER ==
[2016-12-18 12:42] VITALS: RESP 16
[2016-12-18] MEDS ORDERED: ALPRAZolam 0.25 MG TAB PO STA (12:57)
[2016-12-18 14:24] VITALS: BP 112/56; PULSE 76
--- NOTE | 2016-12-18 16:22 | US ---
EXAMINATION TYPE: US FNA thyroid DATE OF EXAM: 12/18/2016 2:39 PM COMPARISON: NONE HISTORY: Thyroid nodule. Maximal barrier technique was utilized. After informed consent, skin overlying the lesion was locali zed with ultrasound and the overlying skin prepped and draped. Ultrasound was utilized using sterile technique. Lidocaine was used for local anesthesia. Five passes with a 25-gauge needle were made int o the nodule and aspirated specimen was submitted to cytology. Following the procedure hemostasis ac hieved. No immediate complication. The patient discharged in stable condition. IMPRESSION: STATUS POST ULTRASOUND GUIDED FINE NEEDLE ASPIRATION OF THYROID NODULE, PATHOLOGY IS PEND ING. THIS PROCEDURE WAS PERFORMED BY THE UNDERSIGNED.
== END 2016-12-18 14:15 | disposition home or self-care (01) ==
LOC: RADPROMAIN 12:20
PROVIDERS: ATTEND Family Medicine
DX: E04.1 Nontoxic single thyroid nodule (principal)
CPT/HCPCS: 10022; 36415; 76942; 88173; 88305

== ENCOUNTER 2017-01-22 09:36 | Inpatient (IN) | payer MEDICARE, OTHER ==
[2017-01-22] MEDS ORDERED: HYDROmorphone 1 MG/ML 1 ML SYRINGE IVP STA (10:26)
[2017-01-22] MEDS ORDERED: ONDANSETRON 4 MG/2 ML VIAL IVP STA (10:27)
--- NOTE | 2017-01-22 11:21 | XR ---
EXAMINATION TYPE: XR lumbar spine 2 or 3V DATE OF EXAM ORDERED: 01/22/2017 HISTORY: Pain. COMPARISON: None. FINDINGS: There is a mild levoscoliosis. Vertebral body height and alignment are maintained. There is no spondylolysis or spondylolisthesis. T here is degenerative disc disease, most marked at L3-4 and L5-S1. There is spondylosis deformans, mos t marked at L2-3. No fractures are seen. IMPRESSION: 1. NO ACUTE OSSEOUS LESION. 2. DEGENERATIVE CHANGE.
--- NOTE | 2017-01-22 11:21 | XR ---
EXAMINATION TYPE: XR thoracic spine 2V DATE OF EXAM: 01/22/2017 CLINICAL HISTORY: Fall injury 3 weeks ago with mid to low back pain. TECHNIQUE: Frontal, lateral, and swimmer's view of thoracic spine are obtained. COMPARISON: Chest x-ray July 05, 2011. CT thoracic spine October 27, 2016.. FINDINGS: Thoracic spine redemonstrated spectral convex scoliosis centered in the mid to lower thorac ic spine without evidence of acute fracture or dislocation. Vertebral body heights and disc space he ights are preserved. Visualized ribs are unremarkable. Moderate to severe multilevel anterior and l ateral spurring is present. There is overlying cardiomegaly with dual lead pacemaker redemonstrated. IMPRESSION: No acute fracture or dislocation is seen in the thoracic spine.
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
[2017-01-22] MEDS ORDERED: ONDANSETRON 4 MG/2 ML VIAL IVP PRN (12:48)
[2017-01-22] MEDS ORDERED: NALOXONE 0.4 MG/ML 1 ML VIAL IV PRN (12:48)
[2017-01-22] MEDS ORDERED: ACETAMINOPHEN TAB 500 MG TAB PO PRN (12:51)
[2017-01-22] MEDS ORDERED: MICONAZOLE NITRATE 2% CREAM 14 GM TUBE TOPICAL PRN (12:51)
[2017-01-22] MEDS ORDERED: OXYMETAZOLINE 0.05% NASL SPRAY 15 ML EA NOSTRIL PRN (12:51)
[2017-01-22] MEDS ORDERED: hydrOXYzine PAMOATE 25 MG CAP PO PRN (12:51)
[2017-01-22] MEDS ORDERED: SODIUM CHLORIDE 0.65% NASAL SPRAY 44 ML BTL NASAL PRN (12:51)
[2017-01-22] MEDS ORDERED: diphenhydrAMINE 25 MG CAP PO PRN (12:51)
[2017-01-22 13:14] LABS: Basophils % (A) 0 %; CH 27.9; CHCM 31.5; Eosinophils # (A) 0.2 k/uL (0-0.7); Eosinophils % (A) 3 %; HCT 38.6 % (34.0-46.0); HGB 12.5 gm/dL (11.4-16.0); Luc # (Auto) 0.31; Luc % (Auto) 4; Lymphocytes # (A) 2.8 k/uL (1.0-4.8); Lymphocytes % (A) 35 %; MCH 28.7 pg (25.0-35.0); MCHC 32.4 g/dL (31.0-37.0); MCV 88.8 fL (80.0-100.0); Monocytes # (A) 0.7 k/uL (0-1.0); Monocytes % (A) 9 %; Neutrophils % (A) 49 %; RBC 4.35 m/uL (3.80-5.40); RDW 13.6 % (11.5-15.5); WBC 8.1 k/uL (3.8-10.6); WBC (Perox) 8.18
[2017-01-22 13:30] LABS: ALT 42 U/L (9-52); AST 32 U/L (14-36); Alkaline Phosphatase 37 U/L (38-126); Anion Gap 7 mmol/L; Blood Urea Nitrogen 21 mg/dL (7-17); Calcium 9.5 mg/dL (8.4-10.2); Carbon Dioxide 33 mmol/L (22-30); Chloride 101 mmol/L (98-107); Glucose 84 mg/dL (74-99); Non-African American GFR(MDRD) >60 (>60 ml/min/1.73 sqM); Potassium 4.8 mmol/L (3.5-5.1); Sodium 141 mmol/L (137-145); Total Bilirubin 0.7 mg/dL (0.2-1.3); Total Protein 6.8 g/dL (6.3-8.2)
[2017-01-22] MEDS: HYDROmorphone 1 MG/ML 1 ML SYRINGE IV PRN ×2 (14:36→20:49)
[2017-01-22] MEDS: oxyCODONE-APAP 10-325MG 1 EACH TAB PO PRN (15:53)
[2017-01-22] MEDS: clonazePAM 1 MG TAB PO SCH ×3 (15:56→22:49)
[2017-01-22] MEDS ORDERED: FLUoxetine HCL 20 MG CAP PO SCH (16:00)
[2017-01-22] MEDS ORDERED: ACYCLOVIR 200 MG CAP PO SCH (16:00)
[2017-01-22] MEDS: ATORVASTATIN 20 MG TAB PO SCH (20:55)
[2017-01-22] MEDS: POTASSIUM CHLORIDE ER 20 MEQ TAB.ER PO SCH (20:55)
[2017-01-22] MEDS: FLECAINIDE 50 MG TAB PO SCH (20:55)
[2017-01-22] MEDS: RIVAROXABAN 10 MG TAB PO SCH (20:55)
[2017-01-23] MEDS ORDERED: NON-FORMULARY DRUG (Fish Oil/Dha/Epa [Fish Oil 1,200 Mg Fish Oil] 1 CAP) PO SCH (09:00)
[2017-01-23] MEDS ORDERED: PANTOPRAZOLE 40 MG/10 ML VIAL IV SCH (09:00)
[2017-01-23] MEDS: FLECAINIDE 50 MG TAB PO SCH ×2 (09:11→21:27)
[2017-01-23] MEDS: FLUoxetine HCL 20 MG CAP PO SCH (09:11)
[2017-01-23] MEDS: MAGNESIUM OXIDE 400 MG TAB PO SCH (09:11)
[2017-01-23] MEDS: NADOLOL 20 MG TAB PO SCH (09:12)
[2017-01-23] MEDS: DIVALPROEX 500 MG TABLET.DR PO SCH (09:12)
[2017-01-23] MEDS: FUROSEMIDE 20 MG TAB PO SCH (09:12)
[2017-01-23] MEDS: ARIPiprazole 2 MG TAB PO SCH (09:12)
[2017-01-23] MEDS: POTASSIUM CHLORIDE ER 20 MEQ TAB.ER PO SCH ×2 (09:12→21:28)
[2017-01-23] MEDS: MULTIVITAMINS, THERA 1 EACH TAB PO SCH (09:13)
[2017-01-23] MEDS: CHOLECALCIFEROL 400 UNIT TAB PO SCH (09:13)
[2017-01-23] MEDS: CALCIUM CARBONATE 500 MG CHEWABLE PO SCH (09:13)
[2017-01-23] MEDS: HYDROmorphone 1 MG/ML 1 ML SYRINGE IV PRN ×2 (09:19→12:50)
[2017-01-23] MEDS: clonazePAM 1 MG TAB PO SCH ×4 (09:19→22:45)
[2017-01-23 10:39] LABS: Appearance,Urine Clear (Clear); Bilirubin,Urine Negative (Negative); Glucose,Urine (UA) Negative (Negative); Ketones,Urine Negative (Negative); Leukocyte Esterase,Urine Negative (Negative); Nitrite,Urine Negative (Negative); Protein,Urine Negative (Negative); Specific Gravity,Urine 1.009 (1.001-1.035); UA Billing (MACRO vs. MICRO) CHEM; Urobilinogen,Urine <2.0 mg/dL (<2.0)
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
--- NOTE | 2017-01-23 16:02 | XR ---
EXAMINATION TYPE: XR chest 1V DATE OF EXAM: 01/23/2017 HISTORY: placement. REFERENCE: Previous study dated 08/22/2016. FINDINGS: A bipolar pacemaker is in place on the left. The heart is mildly enlarged. There is atelectatic change present at both lung bases. There is more c onfluent airspace disease at the left lung base. I cannot exclude a small left effusion. IMPRESSION: 1. CARDIOMEGALY. 2. BIBASILAR ATELECTASIS WORSE ON THE LEFT THAN THE RIGHT. 3. SMALL LEFT EFFUSION.
[2017-01-23] MEDS: oxyCODONE-APAP 10-325MG 1 EACH TAB PO PRN (17:33)
[2017-01-23] MEDS: ATORVASTATIN 20 MG TAB PO SCH (21:27)
[2017-01-23] MEDS: RIVAROXABAN 10 MG TAB PO SCH (21:28)
[2017-01-24] MEDS: oxyCODONE-APAP 10-325MG 1 EACH TAB PO PRN ×3 (06:21→21:25)
[2017-01-24 08:05] LABS: Basophils % (A) 0 %; CH 27.8; CHCM 30.7; Eosinophils # (A) 0.2 k/uL (0-0.7); Eosinophils % (A) 2 %; HDW 2.03; Hypochromasia Slight; Luc # (Auto) 0.28; Luc % (Auto) 3; Lymphocytes # (A) 2.4 k/uL (1.0-4.8); Lymphocytes % (A) 28 %; MCH 28.7 pg (25.0-35.0); MCHC 31.6 g/dL (31.0-37.0); MCV 90.8 fL (80.0-100.0); Mean Platelet Volume 7.3; Monocytes # (A) 0.7 k/uL (0-1.0); Monocytes % (A) 9 %; Neutrophils % (A) 59 %; RBC 4.19 m/uL (3.80-5.40); RDW 13.7 % (11.5-15.5); WBC 8.5 k/uL (3.8-10.6); WBC (Perox) 9.15
[2017-01-24 08:22] LABS: ALT 31 U/L (9-52); AST 19 U/L (14-36); Alkaline Phosphatase 39 U/L (38-126); Anion Gap 8 mmol/L; Blood Urea Nitrogen 15 mg/dL (7-17); Calcium 9.5 mg/dL (8.4-10.2); Carbon Dioxide 31 mmol/L (22-30); Chloride 101 mmol/L (98-107); Glucose 100 mg/dL (74-99); Non-African American GFR(MDRD) >60 (>60 ml/min/1.73 sqM); Potassium 4.6 mmol/L (3.5-5.1); Sodium 140 mmol/L (137-145); Total Bilirubin 0.7 mg/dL (0.2-1.3); Total Protein 6.3 g/dL (6.3-8.2)
[2017-01-24] MEDS: FLECAINIDE 50 MG TAB PO SCH ×2 (08:38→21:36)
[2017-01-24] MEDS: FLUoxetine HCL 20 MG CAP PO SCH (08:38)
[2017-01-24] MEDS: CALCIUM CARBONATE 500 MG CHEWABLE PO SCH (08:38)
[2017-01-24] MEDS: MAGNESIUM OXIDE 400 MG TAB PO SCH (08:39)
[2017-01-24] MEDS: POTASSIUM CHLORIDE ER 20 MEQ TAB.ER PO SCH ×2 (08:39→21:36)
[2017-01-24] MEDS: FUROSEMIDE 20 MG TAB PO SCH (08:39)
[2017-01-24] MEDS: DIVALPROEX 500 MG TABLET.DR PO SCH (08:39)
[2017-01-24] MEDS: CHOLECALCIFEROL 400 UNIT TAB PO SCH (08:39)
[2017-01-24] MEDS: ARIPiprazole 2 MG TAB PO SCH (08:39)
[2017-01-24] MEDS: MULTIVITAMINS, THERA 1 EACH TAB PO SCH (08:40)
[2017-01-24] MEDS: NADOLOL 20 MG TAB PO SCH (08:40)
[2017-01-24] MEDS: PANTOPRAZOLE 40 MG TABLET PO SCH (08:40)
[2017-01-24] MEDS: clonazePAM 1 MG TAB PO SCH ×4 (08:42→21:36)
[2017-01-24] MEDS: HYDROmorphone 1 MG/ML 1 ML SYRINGE IV PRN ×3 (08:45→18:02)
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
--- NOTE | 2017-01-24 15:06 | CT ---
EXAMINATION TYPE: CT lumbar spine wo con DATE OF EXAM: 01/24/2017 2:55 PM COMPARISON: Previous study dated 10/15/2012 HISTORY: Low back pain, inability to ambulate and urinary retention. CT DLP: 1991.00 mGycm Automated exposure control for dose reduction was used. Unenhanced CT of the lumbar spine was performed. Bone and soft tissue window settings are submitted as well as coronal and sagittal reconstructions. FINDINGS: There are is dependent atelectasis in the dependent portions of the lungs. There is mild atheromatous calcification of the visualized arterial tree. Paraspinal soft tissues are otherwise normal. Vertebral body height and alignment are maintained. There is degenerative disc disease with vacuum ph enomena present at L2-3, L3-4 and L5-S1. This hypertrophic spondylosis at L2-3 and L3-4 and there is spondylosis deformans present at L2-3 and L5-S1. There is a levoscoliosis in the thoracic spine. L1-L2: There is mild disc space loss. This hypertrophic spondylosis both anteriorly and posteriorly. Intervertebral foramina are well maintained. There is facet arthropathy. L2-L3: There is disc space loss and a vacuum phenomena. Intervertebral foramina are reasonably well-m aintained. There may be some not mild narrowing on the right. There is hypertrophic spondylosis anter iorly. There is a diffuse disc displacement. There is mild hypertrophic changes in the facets. L3-L4: There is disc space loss and a vacuum phenomena. There is a broad-based disc protrusion. This hypertrophic changes in the facets. There is moderate central canal stenosis. There is mild, bilatera l intervertebral foraminal narrowing. L4-L5: The intervertebral foramina are reasonably well-maintained. There is a mild, degenerative grad e 1 spondylolisthesis of L4 on L5. There is a small pseudodisc. There are hypertrophic changes in the facets. There is moderate central canal stenosis. L5-S1: There is disc space loss and a vacuum phenomena. There is mild right-sided intervertebral fora tom narrowing. There is a diffuse disc displacement. This hypertrophic changes in the facets. IMPRESSION: 1. DIFFUSE DEGENERATIVE DISC DISEASE AND FACET ARTHROPATHY. 2.OVAL INTERVERTEBRAL FORAMINAL NARROWING. 3. THERE ARE DEGREES OF CENTRAL CANAL COMPROMISE MOST MARKED AT L3-4 AND L4-5.
--- NOTE | 2017-01-24 15:31 | P.PN ---
Subjective 71-year-old female being seen currently states continues to have difficult time getting in and out of bed and has not been able to ambulate. She states it took to nursing assistance to get her out of bed today. Additionally patient developed urinary retention currently has an indwelling Shah catheter in place. Patient is recuperating from right shoulder done 2 weeks ago and currently has the right upper extremity in immobilizer in orthopedic consultation has been requested. They have ordered a CT of the lumbar spine further workup. Patient has a pacemaker in place and is not able to have an MRI of the lumbar spine The computed tomography scan of the lumbar spine does show diffuse degenerative disc disease with disc space loss and vacuum phenomenon there is mild right side intervertebral Ray narrowing Objective - Vital Signs Vital signs: Vital Signs Temp 97.2 F L 01/24/17 07:00 Pulse 63 01/24/17 08:00 Resp 19 01/24/17 08:00 BP 107/61 01/24/17 07:00 Pulse Ox 92 L 01/24/17 07:00 Intake & Output 01/23/17 01/24/17 01/24/17 18:59 06:59 18:59 Intake Total 500 200 Output Total 2200 1100 800 Balance -1700 -900 -800 Intake: Oral 500 200 Output: Urine 2200 1100 800 Uretheral (Shah) 1800 Other: Voiding Method Bedpan Indwelling Catheter Indwelling Catheter Indwelling Catheter # Voids 0 - Exam Physical exam 71-year-old female currently just returned from having a CAT scan of the lumbar spine resting in bed continues to report not able to ambulate without the assistance of 2 Lungs essentially clear adequate air movement on room air Heart S1-S2 audible and regular denying chest pain Abdomen soft nontender reports no frequent stooling has an indwelling Shah catheter in place patito urine extremities adequate sensation to the bilateral lower extremities the right arm in an immobilizer sling no edema noted patient is able to lift legs independently off the bed without any significant difficulty patient states she cannot ambulate or walk without the assistance of 2 legs feel weak - Labs CBC & Chem 7: 01/24/17 07:23 01/24/17 07:23 Labs: Abnormal Lab Results - Last 24 Hours (Table) 01/24/17 Range/Units 07:23 Carbon Dioxide 31 H (22-30) mmol/L Glucose 100 H (74-99) mg/dL Microbiology - Last 24 Hours (Table) 01/23/17 10:22 Urine Culture - Final Urine,Catheterized Assessment and Plan Plan: Impression Present on admission intractable lower back pain inability to ambulate unclear etiology Present on admission acute urinary retention post void residual greater than 1000 A recent history of a fall 2 weeks prior landing on back A recent right shoulder surgery 2 weeks prior Chronic hypoxic respiratory failure supplemental home O2 2 L [id number] COPD with asthma no evidence of acute exacerbation stable History of a pulmonary emboli 2009 on Xarelto Obstructive sleep apnea noncompliant with CPAP therapy History of chronic atrial fibrillation rate controlled Anxiety depressive disorder nonspecified A mood disorder Echocardiogram done in October 2015 left ventricular systolic function normal EF 55-60% with no evidence of pulmonary hypertension Computed tomography scan of the lumbar spine severe degenerative disc disease Acute lumbar disc disease with acute lumbar facet arthropathy Degenerative sclerosis in adult patient acute spondylolisthesis lumbar spine Intractable acute lower back pain with inability to walk Bilateral lateral hip pain Plan Pain control Resume home medication as appropriate DVT and GI prophylaxis PT OT eval Discharge plan and progress a she would benefit from subacute rehab Fall precautions Further recommendations pending will follow The above dictated assessment and findings were discussed with dr forde . Impression and the plan of care have been dictated as directed. Ev Zhu nurse practitioner acting as a scribe for dr forde .
[2017-01-24] MEDS: RIVAROXABAN 10 MG TAB PO SCH (21:36)
[2017-01-24] MEDS: ATORVASTATIN 20 MG TAB PO SCH (21:36)
[2017-01-25] MEDS: HYDROmorphone 1 MG/ML 1 ML SYRINGE IV PRN ×4 (06:37→20:42)
[2017-01-25] MEDS: clonazePAM 1 MG TAB PO SCH ×4 (07:56→20:59)
[2017-01-25] MEDS: ARIPiprazole 2 MG TAB PO SCH (07:56)
[2017-01-25] MEDS: PANTOPRAZOLE 40 MG TABLET PO SCH (07:57)
[2017-01-25] MEDS: POTASSIUM CHLORIDE ER 20 MEQ TAB.ER PO SCH ×2 (07:57→20:49)
[2017-01-25] MEDS: oxyCODONE-APAP 10-325MG 1 EACH TAB PO PRN ×3 (07:57→22:58)
[2017-01-25] MEDS: FUROSEMIDE 20 MG TAB PO SCH (07:57)
[2017-01-25] MEDS: MAGNESIUM OXIDE 400 MG TAB PO SCH (07:57)
[2017-01-25] MEDS: FLECAINIDE 50 MG TAB PO SCH ×2 (07:57→20:50)
[2017-01-25] MEDS: NADOLOL 20 MG TAB PO SCH (07:57)
[2017-01-25] MEDS: DIVALPROEX 500 MG TABLET.DR PO SCH (07:57)
[2017-01-25] MEDS: FLUoxetine HCL 20 MG CAP PO SCH (07:57)
[2017-01-25] MEDS: CALCIUM CARBONATE 500 MG CHEWABLE PO SCH (11:28)
[2017-01-25] MEDS: CHOLECALCIFEROL 400 UNIT TAB PO SCH (11:28)
[2017-01-25] MEDS: MULTIVITAMINS, THERA 1 EACH TAB PO SCH (11:28)
--- NOTE | 2017-01-25 14:46 | P.PN ---
Subjective 62-year-old female seen and examined currently resting in bed. Patient continues to report having pain in the lower back but was able to sit up in a chair with the assist of 2 this morning the discharge plan is in progress. Patients being evaluated for subacute rehab. Patient's initial presentation was to the emergency room with a chief complaint of back pain inability to ambulate. Patient stated the pain was worse when she tried to ambulate. Developed right lower leg numbness with ambulation. Patient had been taking Percocet for her right shoulder. Patient stated it seemed to help but did not relieve the back pain. Denied any bowel or bladder abnormalities. Denied any neck or head trauma. Patient did report that approximately 2 weeks ago did step out of shower slipped and fell on her back patient subsequently was seen in the emergency room noted to the services of the attending. Had developed urinary retention. Bladder scan 1100 obtained of urine indwelling Shah catheter was placed. Patient is recuperating from right shoulder. Patient follows up with Dr. valle. [facility] for the lower back pain. Patient did have x-rays of the thoracic spine showed no evidence of acute fracture or dislocation. X-rays of the lumbar spine showed no evidence of vertebrae body compression fracture. L2-L3 severe degenerative disc disease noted. Recommendations by orthopedics was to proceed with a CAT scan of the lumbar spine this was done it did show diffuse degenerative disc disease with degrees of central canal compromise most markable at L3 and 4 Objective - Vital Signs Vital signs: Vital Signs Temp 97 F L 01/25/17 07:00 Pulse 62 01/25/17 07:00 Resp 17 01/25/17 07:00 BP 111/55 01/25/17 07:00 Pulse Ox 94 L 01/25/17 07:00 Intake & Output 01/24/17 01/25/17 01/25/17 18:59 06:59 18:59 Intake Total 300 Output Total 1600 3300 Balance -1600 -3000 Weight 104.326 kg Intake: Oral 300 Output: Urine 1600 3300 Uretheral (Shah) 2200 Other: Voiding Method Indwelling Catheter Indwelling Catheter Indwelling Catheter # Voids 0 # Bowel Movements 0 - Exam Physical exam 71-year-old female currently resting in bed. Patient is states she did set up in a chair with the assist of 2 continues to report having weakness lower extremities Lungs essentially clear adequate air movement on room air Heart S1-S2 audible and regular denying chest pain Abdomen soft nontender reports no frequent stooling has an indwelling Shah catheter in place patito urine extremities adequate sensation to the bilateral lower extremities the right arm in an immobilizer sling no edema noted patient is able to lift legs independently off the bed without any significant difficulty patient states she cannot ambulate or walk without the assistance of 2 legs feel weak - Labs CBC & Chem 7: 01/24/17 07:23 01/24/17 07:23 Labs: Microbiology - Last 24 Hours (Table) 01/23/17 10:22 Urine Culture - Final Urine,Catheterized Assessment and Plan Plan: Impression Present on admission intractable lower back pain inability to ambulate unclear etiology Present on admission acute urinary retention post void residual greater than 1000 A recent history of a fall 2 weeks prior landing on back A recent right shoulder surgery 2 weeks prior Chronic hypoxic respiratory failure supplemental home O2 2 L [id number] COPD with asthma no evidence of acute exacerbation stable History of a pulmonary emboli 2009 on Xarelto Obstructive sleep apnea noncompliant with CPAP therapy History of chronic atrial fibrillation rate controlled Anxiety depressive disorder nonspecified A mood disorder Echocardiogram done in October 2015 left ventricular systolic function normal EF 55-60% with no evidence of pulmonary hypertension Computed tomography scan of the lumbar spine severe degenerative disc disease Acute lumbar disc disease with acute lumbar facet arthropathy Degenerative sclerosis in adult patient acute spondylolisthesis lumbar spine Intractable acute lower back pain with inability to walk Bilateral lateral hip pain Plan Pain control Resume home medication as appropriate DVT and GI prophylaxis PT OT eval Discharge plan and progress a she would benefit from subacute rehab Fall precautions Further recommendations pending will follow The above dictated assessment and findings were discussed with dr forde . Impression and the plan of care have been dictated as directed. Ev Zhu nurse practitioner acting as a scribe for dr forde .
[2017-01-25] MEDS: ATORVASTATIN 20 MG TAB PO SCH (20:50)
[2017-01-25] MEDS: RIVAROXABAN 10 MG TAB PO SCH (20:50)
[2017-01-25 23:39] VITALS: RESP 18
[2017-01-26] MEDS: HYDROmorphone 1 MG/ML 1 ML SYRINGE IV PRN ×3 (00:11→07:45)
[2017-01-26] MEDS: PANTOPRAZOLE 40 MG TABLET PO SCH (07:44)
[2017-01-26] MEDS: FUROSEMIDE 20 MG TAB PO SCH (07:45)
[2017-01-26] MEDS: MAGNESIUM OXIDE 400 MG TAB PO SCH (07:45)
[2017-01-26] MEDS: FLECAINIDE 50 MG TAB PO SCH (07:45)
[2017-01-26] MEDS: NADOLOL 20 MG TAB PO SCH (07:45)
[2017-01-26] MEDS: FLUoxetine HCL 20 MG CAP PO SCH (07:45)
[2017-01-26] MEDS: POTASSIUM CHLORIDE ER 20 MEQ TAB.ER PO SCH (07:45)
[2017-01-26] MEDS: ARIPiprazole 2 MG TAB PO SCH (07:45)
[2017-01-26] MEDS: DIVALPROEX 500 MG TABLET.DR PO SCH (07:45)
[2017-01-26] MEDS: clonazePAM 1 MG TAB PO SCH (07:45)
[2017-01-26 07:57] VITALS: BP 120/65; PULSE 84; TEMP 99.5
--- NOTE | 2017-01-26 08:56 | P.PN ---
Progress Note - Text Patient is a pleasant 71-year-old female who is seen and examined at the bedside for follow up evaluation after she began experiencing significant low back pain radiating towards the lateral hips, inability to ambulate, and urinary retention. Since being seen and examined, she has had a CT of the lumbar spine performed. She states she has not had significant change of her symptoms. She has not been out of bed with physical therapy as she states she is refusing physical therapy until her pain improves. He is currently waiting for consultation with pain management. She is known to have recently underwent right shoulder surgery performed by Dr. Hill on 01/05/2017. At this time she states she is not ready for discharge to rehab as she feels she should be more mobile and have her pain better controlled prior to discharge to rehab. This morning she has more difficulty with trying to lift her legs off the bed independently. She continues to deny any lower extremity radiculopathy bilaterally. She states if she could move her lumbar spine and hips she would be able to walk right out of the hospital. She continues to have some difficulty with urination has a Shah catheter intact. She states she has noticed some difficulty with urination that is chronic for her that comes and goes. However, more recently, she has had increased difficulty with urination. Patient feels she has been recovering in terms of her right shoulder. She continues to be in a right upper extremity sling. She has not been able to follow-up with Dr. Hill postoperatively. She states she was supposed to see him for an appointment but missed this appointment due to being in the hospital here. She denies any recent falls but states she did fall approximately 3 weeks ago on 01/04/2017 the night before her scheduled shoulder surgery. She did not experience significant injury at that time. Physical exam: Patient is awake, alert, and oriented 3 Vital signs stable Good chest excursion with deep inspiration and expiration Abdomen soft nontender Examination of lumbar spine reveals skin is intact with no abrasions, lacerations, or bruises; no erythema, purulence or signs of infection No significant pain with palpation of the lumbar spine Dorsiflexion, plantarflexion, and extensor hallucis longus positive sustained bilaterally Lower extremity strength 5/5 bilaterally Patellar reflex 2+ bilaterally No lower extremity hyperreflexia bilaterally Straight leg test negative bilateral lower extremities Patient able to lift legs independently off the bed without significant difficulty No signs or symptoms of DVT; no calf pain No pain with internal and external rotation of the hips bilaterally Neurovascularly intact Right upper extremity currently placed in a sling Evidence of a healing incision over the right shoulder Shah catheter intact Pertinent studies: CT of the lumbar spine: L1-2 mild degenerative disc disease and facet arthropathy; L2-3 degenerative disc disease, diffuse disc displacement and spondylosis; L3-4 degenerative disc disease, broad-based disc protrusion and facet spondylosis salting and mild central canal stenosis and bilateral foraminal narrowing; L4-5 grade 1 spondylolisthesis and facet hypertrophy resulting in moderate central canal stenosis; L5-S1 degenerative disc disease, diffuse disc displacement, and facet spondylosis X-rays of the thoracic spine: No evidence of acute fracture or dislocation; intravertebral disc spacing appears to be adequately maintained; convex scoliosis centered to the mid to lower thoracic spine X-rays the lumbar spine: No evidence of vertebral body compression fracture; L2- 3 severe degenerative disc disease with anterior osteophyte; L5-S1 severe degenerative disc disease; may be evidence of a slight spondylolisthesis L4-5; spondylosis; degenerative scoliosis Assessment: Low back pain Bilateral lateral hip pain Inability ambulate Urinary retention Recent right shoulder surgery performed on 01/05/[address] Hill Lumbar degenerative disc disease Degenerative scoliosis Lumbar spondylosis Lumbar spondylolisthesis Lumbar central canal stenosis L3-4 and L4-5 History of pacemaker placement Plan: 1. Patient is currently experiencing significant low back pain with bilateral lateral hip pain, inability to ambulate, and urinary retention. A Shah catheter has been placed. X-ray imaging of the thoracic and lumbar spine do not show evidence of acute change. Patient has a history of pacemaker placement is unable to have an MRI of the lumbar spine. We will currently planned to obtain a CT of the lumbar spine for further evaluation. We will also plan to consult with pain management for further evaluation and possible treatment. We will plan to follow up with the patient to discuss further treatment options after the computed tomography scan of the lumbar spine has been performed. We are not currently planning for acute surgical intervention if we are able to avoid doing so. Patient states at the bedside she does not currently want any surgery in regards to her lumbar spine. 2. Consultation with pain management has been ordered; nursing is attempting to contact me management this morning 3. Medicine to continue following the patient 4. Continue pain control 5. Patient is encouraged to follow with Dr. Hill for follow-up evaluation for her recent right shoulder surgery following discharge 6. From an orthopedic spine standpoint, patient is cleared for discharge as we are not currently planning for any acute surgical intervention in regards to her lumbosacral spine or planning to proceed with further imaging; following discharge, patient may follow-up with Damien Mark PA-C or Dr. Sarkis Louie at [facility] on an as-needed basis 7. I have discussed this patient detail with Dr. Sarkis Klein and he agrees with this plan
[2017-01-26] MEDS: oxyCODONE-APAP 10-325MG 1 EACH TAB PO PRN ×2 (09:04→11:26)
--- NOTE | 2017-01-26 09:31 | P.DS ---
Providers Date of admission: 01/23/17 12:17 Expected date of discharge: 01/26/17 Attending physician: James Forde Consults: 01/23/17 11:27 Consult Physician Urgent Consulting Provider: Candelario Klein Consult Reason/Comments: Lower back pain inability to ambulate Do you want consulting provider notified?: Yes 01/24/17 12:05 Consult Anesthesia Routine Consulting Provider: Anesthesia,Services Consult Reason/Comments: Low back pain, lateral hip pain, inability to ambulate; urinary retention Primary care physician: [facility] Course: Patient's initial presentation was to the emergency room with a chief complaint of back pain inability to ambulate. Patient stated the pain was worse when she tried to ambulate. Developed right lower leg numbness with ambulation. Patient had been taking Percocet for her right shoulder. Patient stated it seemed to help but did not relieve the back pain. Denied any bowel or bladder abnormalities. Denied any neck or head trauma. Patient did report that approximately 2 weeks ago did step out of shower slipped and fell on her back patient subsequently was seen in the emergency room noted to the services of the attending. Had developed urinary retention. Bladder scan 1100 obtained of urine indwelling Shah catheter was placed. Patient is recuperating from right shoulder. Patient follows up with Dr. valle. [facility] this admission for the lower back pain. Patient did have x-rays of the thoracic spine showed no evidence of acute fracture or dislocation. X-rays of the lumbar spine showed no evidence of vertebrae body compression fracture. L2-L3 severe degenerative disc disease noted. Recommendations by orthopedics was to proceed with a CAT scan of the lumbar spine this was done it did show diffuse degenerative disc disease with degrees of central canal compromise most markable at L3 and 4 Patient had been evaluated by the machine adjuster leader case trim and was felt to be appropriate to transfer to subacute rehab for rehab. Multiple consulting physicians patient was felt appropriate to be discharged . Impression discharge diagnosis Present on admission intractable lower back pain inability to ambulate unclear etiology Present on admission acute urinary retention post void residual greater than 1000 A recent history of a fall 2 weeks prior landing on back A recent right shoulder surgery 2 weeks prior Chronic hypoxic respiratory failure supplemental home O2 2 L [id number] COPD with asthma no evidence of acute exacerbation stable History of a pulmonary emboli 2009 on Xarelto Obstructive sleep apnea noncompliant with CPAP therapy History of chronic atrial fibrillation rate controlled Anxiety depressive disorder nonspecified A mood disorder Echocardiogram done in October 2015 left ventricular systolic function normal EF 55-60% with no evidence of pulmonary hypertension Computed tomography scan of the lumbar spine severe degenerative disc disease Acute lumbar disc disease with acute lumbar facet arthropathy Degenerative sclerosis in adult patient acute spondylolisthesis lumbar spine Intractable acute lower back pain with inability to walk Bilateral lateral hip pain The above dictated assessment and findings were discussed with dr forde . Impression and the plan of care have been dictated as directed. Ev Zhu nurse practitioner acting as a scribe for dr forde . Patient Condition at Discharge: Fair Plan - Discharge Summary New Discharge Prescriptions: New oxyCODONE-APAP 10-325MG [Percocet 10-325 mg] 1 each PO QID PRN #30 tab PRN Reason: Moderate Pain Continue Rivaroxaban [Xarelto] 20 mg PO HS Omeprazole 40 mg PO QAM Nadolol [Corgard] 20 mg PO DAILY Simvastatin [Zocor] 40 mg PO HS diphenhydrAMINE HCL [Benadryl] 25 mg PO DAILY PRN PRN Reason: Allergy Symptoms Multivitamins, Thera [Multivitamin (formulary)] 1 tab PO DAILY Flecainide Acetate [Tambocor] 100 mg PO Q12HR Potassium Chloride [Klor-Con 20] 40 meq PO BID clonazePAM [KlonoPIN] 1 mg PO QID levETIRAcetam [Keppra] 1,500 mg PO Q12HR ARIPiprazole 2 mg PO DAILY Furosemide [Lasix] 20 mg PO DAILY Divalproex Sodium [Depakote] 500 mg PO DAILY Fish Oil/Dha/Epa [Fish Oil 1,200 mg Fish Oil] 1 cap PO DAILY Calcium Carbonate/Vitamin D3 [Calcium 600-Vit D3 400 Caplet] 1 tab PO DAILY oxyCODONE-APAP 10-325MG [Percocet 10-325 mg] 1 tab PO QID PRN PRN Reason: Pain Sodium Chloride [Neosho Saline] 50 ml EA NOSTRIL DAILY PRN PRN Reason: Nasal Congestion Acyclovir 400 mg PO TID Acetaminophen [Tylenol] 500 mg PO Q4-6H PRN PRN Reason: Pain hydrOXYzine PAMOATE 25 mg PO Q4HR PRN PRN Reason: Analgesia Oxymetazoline 0.05% Nasl [place] [Afrin 0.05% Nasal [place]] 2 spray EA NOSTRIL DAILY PRN PRN Reason: Nasal Congestion Magnesium Oxide [Magnesium] 500 mg PO DAILY FLUoxetine HCL [PROzac] 20 mg PO TID Phytoplex Powder 1 applic TOPICAL DAILY PRN PRN Reason: fungal infection Discharge Medication List Omeprazole 40 mg PO QAM 07/07/14 [History] Rivaroxaban [Xarelto] 20 mg PO HS 07/07/14 [History] Nadolol [Corgard] 20 mg PO DAILY 07/08/14 [History] Simvastatin [Zocor] 40 mg PO HS 07/08/14 [History] diphenhydrAMINE HCL [Benadryl] 25 mg PO DAILY PRN 11/24/15 [History] Flecainide Acetate [Tambocor] 100 mg PO Q12HR 02/16/16 [History] Multivitamins, Thera [Multivitamin (formulary)] 1 tab PO DAILY 02/16/16 [History ] Potassium Chloride [Klor-Con 20] 40 meq PO BID 02/17/16 [History] clonazePAM [KlonoPIN] 1 mg PO QID 02/17/16 [History] levETIRAcetam [Keppra] 1,500 mg PO Q12HR 08/04/16 [History] ARIPiprazole 2 mg PO DAILY 11/17/16 [History] Calcium Carbonate/Vitamin D3 [Calcium 600-Vit D3 400 Caplet] 1 tab PO DAILY [History] Divalproex Sodium [Depakote] 500 mg PO DAILY 11/17/16 [History] Fish Oil/Dha/Epa [Fish Oil 1,200 mg Fish Oil] 1 cap PO DAILY 11/17/16 [History] Furosemide [Lasix] 20 mg PO DAILY 11/17/16 [History] oxyCODONE-APAP 10-325MG [Percocet 10-325 mg] 1 tab PO QID PRN 12/18/16 [History] Acetaminophen [Tylenol] 500 mg PO Q4-6H PRN 01/22/17 [History] Acyclovir 400 mg PO TID 01/22/17 [History] FLUoxetine HCL [PROzac] 20 mg PO TID 01/22/17 [History] Magnesium Oxide [Magnesium] 500 mg PO DAILY 01/22/17 [History] Oxymetazoline 0.05% Nasl [place] [Afrin 0.05% Nasal [place]] 2 spray EA NOSTRIL DAILY PRN 01/22/17 [History] Phytoplex Powder 1 applic TOPICAL DAILY PRN 01/22/17 [History] Sodium Chloride [Neosho Saline] 50 ml EA NOSTRIL DAILY PRN 01/22/17 [History] hydrOXYzine PAMOATE 25 mg PO Q4HR PRN 01/22/17 [History] oxyCODONE-APAP 10-325MG [Percocet 10-325 mg] 1 each PO QID PRN #30 tab 01/26/17 [Rx] Follow up Appointment(s)/Referral(s): Richard Hill MD [REFERRING] - 1 Week Damien Mark PAC [PHYSICIAN [employer] ARCHITECT] - As Needed (Patient may follow-up with Damien Mark PA-C or Dr. Sarkis Klein at [facility] on an as-needed basis following discharge. ) James Forde MD [Primary Care Provider] - 1 Week [facility], [NON-STAFF] - 1 Week Patient Instructions/Handouts: Heart Failure (DC), Back Pain (GEN) Activity/Diet/Wound Care/Special Instructions: Fall precautions. Low fat, cardiac diet. Change positions every few hours while awake. Sling to right arm while awake. Up in chair for all meals Remove the Shah catheter in 48 hours and bladder training toileting with assist every 2 hours while awake Discharge Disposition: TRANSFER TO SNF/ECF
[2017-01-26] MEDS: MULTIVITAMINS, THERA 1 EACH TAB PO SCH (11:26)
[2017-01-26] MEDS: CALCIUM CARBONATE 500 MG CHEWABLE PO SCH (11:26)
[2017-01-26] MEDS: CHOLECALCIFEROL 400 UNIT TAB PO SCH (11:26)
== END 2017-01-26 12:27 | DRG 552 ==
LOC: EC 09:36 → 4MS4W 12:54 → INTOOBSV 12:54 → 4MS4W 14:15 → OBSVTOIN 01-23 12:17
PROVIDERS: ADMIT Family Medicine; ATTEND Family Medicine
DX: M54.5 Low back pain (principal); J96.11 Chronic respiratory failure with hypoxia; I50.9 Heart failure, unspecified; I48.2 Chronic atrial fibrillation; J44.9 Chronic obstructive pulmonary disease, unspecified; F32.9 Major depressive disorder, single episode, unspecified; G40.909 Epilepsy, unspecified, not intractable, without status epilepticus; M41.80 Other forms of scoliosis, site unspecified; E78.5 Hyperlipidemia, unspecified; F41.9 Anxiety disorder, unspecified; G47.33 Obstructive sleep apnea (adult) (pediatric); K21.9 Gastro-esophageal reflux disease without esophagitis; M43.16 Spondylolisthesis, lumbar region; M46.96 Unspecified inflammatory spondylopathy, lumbar region; M47.26 Other spondylosis with radiculopathy, lumbar region; M48.06 Spinal stenosis, lumbar region; M51.16 Intervertebral disc disorders with radiculopathy, lumbar region; M79.7 Fibromyalgia; R32 Unspecified urinary incontinence; R33.9 Retention of urine, unspecified; W18.2XXA Fall in (into) shower or empty bathtub, initial encounter; Y93.E1 Activity, personal bathing and showering; Z79.899 Other long term (current) drug therapy; Z82.49 Family history of ischemic heart disease and other diseases of the circulatory system; Z86.711 Personal history of pulmonary embolism; Z87.891 Personal history of nicotine dependence; Z90.81 Acquired absence of spleen; Z91.19 Patient's noncompliance with other medical treatment and regimen; Z91.81 History of falling; Z95.0 Presence of cardiac pacemaker; Z96.611 Presence of right artificial shoulder joint
CPT/HCPCS: 36415; 71010; 72070; 72100; 72131; 80053; 81003; 85025; 87086; 94760; 96374; 96375; 96376; 99284

== ENCOUNTER → 2017-08-21 | Outpatient (CLI) | payer MEDICARE, OTHER ==
[2017-08-21 07:43] LABS: T4, Free (Free Thyroxine) 1.09 ng/dL (0.78-2.19)
== END | disposition home or self-care (01) ==
LOC: LABWHC1 06:47
PROVIDERS: ATTEND Internal Medicine Interventional Cardiology
DX: E03.9 Hypothyroidism, unspecified (principal)
CPT/HCPCS: 36415; 84439; 84443

== ENCOUNTER → 2017-10-12 | Outpatient (CLI) | payer MEDICARE, OTHER ==
--- NOTE | 2017-10-12 13:02 | XR ---
EXAMINATION TYPE: XR knee complete RT DATE OF EXAM: 10/12/2017 CLINICAL HISTORY: Osteoarthritis in right knee pain TECHNIQUE: Three views of the right knee are obtained. COMPARISON: None. FINDINGS: There is no acute fracture/dislocation evident in right knee. Protuberant marginal osteoph ytes are seen of the distal femoral condyle medially and of the medial tibial plateau. Smaller osteop hytes project from the lateral femoral condyle and lateral tibial plateau. Small osteophytes are also seen in the inferior and superior patellar poles. Medial compartment joint space narrowing is apprec iated. No suprapatellar joint effusion or focal soft tissue swelling. No suspicious osseous lesion. IMPRESSION: 1. There is no acute fracture or dislocation in the right knee. 2. Moderate tricompartmental arthrosis.
== END ==
LOC: RADXRMAIN 11:37
PROVIDERS: ATTEND Family Medicine
DX: M17.11 Unilateral primary osteoarthritis, right knee (principal)

== ENCOUNTER 2017-10-21 10:05 | Observation (INO) | payer MEDICARE, OTHER ==
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
[2017-10-21 10:37] LABS: Basophils % (A) 0 %; Eosinophils # (A) 0.4 k/uL (0-0.7); Eosinophils % (A) 6 %; HCT 36.5 % (34.0-46.0); HGB 11.1 gm/dL (11.4-16.0); Hypochromasia Slight; Lymphocytes # (A) 2.3 k/uL (1.0-4.8); Lymphocytes % (A) 35 %; MCH 26.9 pg (25.0-35.0); MCHC 30.4 g/dL (31.0-37.0); MCV 88.4 fL (80.0-100.0); Mean Platelet Volume 7.6; Monocytes # (A) 0.5 k/uL (0-1.0); Monocytes % (A) 7 %; Neutrophils # (A) 3.3 k/uL (1.3-7.7); Neutrophils % (A) 48 %; Platelet Count 400 k/uL (150-450); RBC 4.13 m/uL (3.80-5.40); RDW 14.4 % (11.5-15.5); WBC 6.8 k/uL (3.8-10.6)
[2017-10-21 10:44] LABS: INR 1.1 (<1.2); Partial Thromboplastin Time 24.5 sec (22.0-30.0)
[2017-10-21 10:45] LABS: ALT 40 U/L (9-52); AST 26 U/L (14-36); Albumin 3.5 g/dL (3.5-5.0); Alkaline Phosphatase 45 U/L (38-126); Anion Gap 10 mmol/L; Blood Urea Nitrogen 19 mg/dL (7-17); Calcium 8.9 mg/dL (8.4-10.2); Carbon Dioxide 27 mmol/L (22-30); Chloride 105 mmol/L (98-107); Glucose 188 mg/dL (74-99); Magnesium 1.6 mg/dL (1.6-2.3); Potassium 4.6 mmol/L (3.5-5.1); Sodium 142 mmol/L (137-145); Total Bilirubin 0.3 mg/dL (0.2-1.3); Total Protein 6.1 g/dL (6.3-8.2)
[2017-10-21 11:03] LABS: Creatine Kinase 46 U/L (30-135)
[2017-10-21 11:16] LABS: Creatine Kinase MB 0.5 ng/mL (0.0-2.4); Troponin I <0.012 ng/mL (0.000-0.034)
--- NOTE | 2017-10-21 11:33 | CT ---
EXAMINATION TYPE: CT brain clarence stein con DATE OF EXAM: 10/21/2017 COMPARISON: 08/22/2016 HISTORY: fall CT DLP: 1835.2 mGycm, Automated exposure control for dose reduction was used. CONTRAST: Patient injected with 0 mL of Omnipaque 350. CT of the brain is performed utilizing 3 mm thick sections through the posterior fossa and 3 mm thick sections through the remaining calvarium. Study is performed within 24 hours of arrival to the hospital. No abnormal hyperdensity is present to suggest an acute intracranial hemorrhage. No mass lesion is evident. No acute infarcts are evident. Ventricles and sulci are appropriate for the patient age. Paranasal sinuses and mastoid air cells within the [id number] are clear. IMPRESSIONS: 1. Normal CT brain. CT cervical spine. COMPARISON: None CT of the cervical spine is performed in the axial plane at 2 mm thick sections. Reconstructed image s in the coronal, and sagittal plane are reviewed on the computer. No acute fractures are evident. There is a scoliosis present. There is slight kyphosis centered at C4-5 in the sagittal plane. There is loss of disc height C4-5 C5-6. Vertebral body heights are preserved. No spinal canal stenosis is evident. Uncovertebral joint hypertrophy is contributing to severe right and moderate left foraminal stenosis C5-6. Endplate spurring has moderate anterior thecal sac compression at this level. Uncovertebral dolores nt hypertrophy at C4-5 has moderate bilateral foraminal stenosis. IMPRESSIONS: 1. Degenerative changes greatest at the C4-5 C5-6 levels discussed above including foraminal stenosis and some endplate spurring at C5-6 with anterior thecal sac compression. 2. No acute osseous abnormality.
[2017-10-21 12:02] LABS: Appearance,Urine Clear (Clear); Bacteria,Urine Few /hpf; Bilirubin,Urine Negative (Negative); Blood,Urine Negative (Negative); Color,Urine Colorless; Glucose,Urine (UA) Negative (Negative); Hyaline Casts,Urine 15 /lpf (0-2); Ketones,Urine Negative (Negative); Leukocyte Esterase,Urine Negative (Negative); Mucus,Urine Rare /hpf; Nitrite,Urine Positive (Negative); Protein,Urine Negative (Negative); Specific Gravity,Urine 1.007 (1.001-1.035); Squamous Epithelial Cell,Urine 1 /hpf (0-4); Urobilinogen,Urine <2.0 mg/dL (<2.0); WBC,Urine 1 /hpf (0-5)
--- NOTE | 2017-10-21 12:11 | XR ---
EXAMINATION TYPE: XR chest 2V DATE OF EXAM: 10/21/2017 COMPARISON: 01/23/2017 HISTORY: Syncope TECHNIQUE: Frontal and lateral views of the chest are obtained. FINDINGS: There is no heart failure nor confluent pneumonic infiltrate. Heart appears enlarged. Ther e is no sign of pleural effusion. There is left axillary pacemaker with the lead tips in the right ve ntricle. IMPRESSION: No active cardiopulmonary disease. There is clearing of the mild atelectasis at the lung bases compared to old exam.
--- NOTE | 2017-10-21 12:13 | XR ---
EXAMINATION TYPE: XR shoulder complete RT DATE OF EXAM: 10/21/2017 COMPARISON: 08/22/2016 HISTORY: Pain after a fall TECHNIQUE: 3 views FINDINGS: There are 2 pins in the greater tuberosity of the humerus. I see no fracture. There is wide jose of the AC joint space probably due to surgery. IMPRESSION: Previous surgery. No fracture seen.
[2017-10-21] MEDS ORDERED: NALOXONE 0.4 MG/ML 1 ML VIAL IV PRN (12:22)
[2017-10-21] MEDS ORDERED: HYDROcodone/APAP 10-325MG 1 EACH TAB PO PRN (12:24)
[2017-10-21] MEDS: clonazePAM 1 MG TAB PO SCH ×2 (16:29→21:10)
[2017-10-21 16:38] VITALS: BMI 40.6
[2017-10-21] MEDS: IBUPROFEN 600 MG TAB PO SCH ×2 (16:46→21:37)
[2017-10-21] MEDS: SODIUM CHLORIDE 0.9% 1,000 ML IV SCH (17:56)
[2017-10-21] MEDS: HYDROcodone/APAP 10-325MG 1 EACH TAB PO PRN (17:57)
--- NOTE | 2017-10-21 18:18 | HP ---
HISTORY AND PHYSICAL CHIEF COMPLAINT: A 72-year-old white female, syncopal episode. HISTORY OF PRESENT ILLNESS: This is a 72-year-old white female with syncopal episode to the bathroom after going to the bathroom. She became numb. She found herself on the floor. She said she hit her head on concrete wall and her shoulder. X-rays of the neck, C-spine, and shoulder are all negative. She complained of generalized pain. She was admitted for cardiac monitoring. She has noticed a lot of weight gain lately and a lot of fluid buildup in her legs. HOME MEDICATION: Include omeprazole 40 mg daily, Xarelto 20 mg daily, Corgard 20 mg daily, Zocor 40 mg daily, Tambocor 100 mg b.i.d., Klonopin 1 mg q.i.d., Keppra 1500 mg b.i.d., 2 mg daily, Lasix 20 mg daily, Prozac 20 mg t.i.d., magnesium 500 mg daily, [place] 10/325 daily, DuoNeb q.i.d., meloxicam 15 mg daily. ALLERGIES: SYMBICORT, ADVAIR, LATEX, MUSHROOMS, ADVAIR, SPIRIVA, DEMEROL, DARVON, MOLD. REVIEW OF SYSTEMS: Fourteen point review of systems negative except for as mentioned in HPI. PAST MEDICAL HISTORY: Atrial fibrillation, asthma, cancer, chest pain, angina, heart failure, COPD, mild fibromyalgia, GERD, dyslipidemia, osteoarthritis, pneumonia, pulmonary embolism, seizures, obstructive sleep apnea, syncope, history of paroxysmal atrial fibrillation, SVT, atrial fibrillation, cardiac ablation. Colonoscopy, right knee arthroscopy, shoulder replacement. She has splenectomy, anxiety, depression former smoker. No alcohol. No illicit drugs. FAMILY HISTORY: Father myocardial infarction at 79. Mother had osteoporosis, TB. PHYSICAL EXAMINATION: A white female. She looks generally edematous and obese. CARDIOVASCULAR: S1, S2. NEUROLOGIC: Cranial nerves are intact. HEMATOLOGY: Negative Homans, 2 to 3+ pedal edema with stasis and redness of the lower tibia areas bilaterally. GI is soft, nontender. VASCULAR: Normal dorsalis pedis, posterior tibial and radial pulse. NEUROLOGIC: Alert and oriented x3. : No suprapubic tenderness. ASSESSMENT: A 72-year-old white female with syncopal episode. CT scans were negative of the neck and the brain. Normal troponins, electrolytes, hemoglobin. Await cardiology consult. EKG sinus rhythm. Monitor overnight. Followup after Cardiology consult. LYNDA / ERNESTO: [id number] /
[2017-10-21] MEDS: IPRATROPIUM-ALBUTEROL 3 ML NEB INHALATION PRN (20:18)
[2017-10-21] MEDS ORDERED: RIVAROXABAN 20 MG TAB PO SCH (21:00)
[2017-10-21] MEDS ORDERED: ATORVASTATIN 20 MG TAB PO SCH (21:00)
[2017-10-21] MEDS ORDERED: FUROSEMIDE 10 MG/ML 4 ML VIAL IV SCH (21:00)
[2017-10-21] MEDS: FLECAINIDE 50 MG TAB PO SCH (21:08)
[2017-10-21] MEDS: CALCIUM CARBONATE 500 MG CHEWABLE PO SCH (21:37)
[2017-10-21] MEDS: KETOROLAC 30 MG/ML 1 ML VIAL IVP PRN (21:38)
[2017-10-21] MEDS: FUROSEMIDE 10 MG/ML 4 ML VIAL IV SCH (22:53)
[2017-10-21] MEDS: ceFAZolin IN SWFI 2 GM/20 ML SYRINGE IVP SCH (22:58)
[2017-10-22] MEDS: HYDROcodone/APAP 10-325MG 1 EACH TAB PO PRN ×2 (02:35→11:56)
[2017-10-22] MEDS: KETOROLAC 30 MG/ML 1 ML VIAL IVP PRN ×2 (04:04→14:42)
[2017-10-22] MEDS: SODIUM CHLORIDE 0.9% 1,000 ML IV SCH ×2 (06:59→14:43)
[2017-10-22] MEDS ORDERED: PANTOPRAZOLE 40 MG TABLET PO SCH (07:30)
[2017-10-22 08:49] VITALS: RESP 18
[2017-10-22] MEDS ORDERED: FLUoxetine HCL 20 MG CAP PO SCH (09:00)
[2017-10-22] MEDS ORDERED: FUROSEMIDE 20 MG TAB PO SCH (09:00)
[2017-10-22] MEDS ORDERED: MAGNESIUM OXIDE 400 MG TAB PO SCH (09:00)
[2017-10-22] MEDS ORDERED: NON-FORMULARY DRUG (Omega-3 Fatty Acids/Fish Oil [Fish Oil 1,000 Mg Softgel] 1 CAP) PO SCH (09:00)
[2017-10-22] MEDS ORDERED: NADOLOL 20 MG TAB PO SCH (09:00)
[2017-10-22] MEDS ORDERED: ARIPiprazole 2 MG TAB PO SCH (09:00)
[2017-10-22] MEDS ORDERED: MELOXICAM 7.5 MG TAB PO SCH (09:00)
[2017-10-22] MEDS: FLECAINIDE 50 MG TAB PO SCH (10:20)
[2017-10-22] MEDS: CALCIUM CARBONATE 500 MG CHEWABLE PO SCH (10:20)
[2017-10-22] MEDS: clonazePAM 1 MG TAB PO SCH ×3 (10:21→18:51)
[2017-10-22] MEDS: IBUPROFEN 600 MG TAB PO SCH ×2 (10:21→16:05)
[2017-10-22] MEDS: IPRATROPIUM-ALBUTEROL 3 ML NEB INHALATION PRN ×2 (10:49→16:25)
[2017-10-22] MEDS: FUROSEMIDE 10 MG/ML 4 ML VIAL IV SCH (11:24)
[2017-10-22] MEDS: ceFAZolin IN SWFI 2 GM/20 ML SYRINGE IVP SCH ×2 (11:24→16:06)
--- NOTE | 2017-10-22 12:23 | PN ---
PROGRESS NOTE SUBJECTIVE: A 72-year-old white female admitted with syncope, possible vasovagal, off a toilet, admitted for front desk monitor. Her labs are all normal. Awaiting cardiology consult for possible discharge home. She had a lot of weight gain . Blood tests were reviewed on her. She appears to be doing fairly stable. CARDIOVASCULAR: S1, S2. LUNGS: Clear. GI: Soft. ENDOCRINE: Diffuse edema. UA is atypical, possible infection. ASSESSMENT: 1. Rule out urinary tract infection. 2. Syncope secondary to vasovagal cause. Cardiology to rule out cardiac source prior to discharge. She has hypotension monitor medications and possibly cut down on some of those. She was started on IV Kefzol for leg cellulitis, which is improved. Possible cut back on some medications for her heart that are causing hypotension. Wait for Cardiology recommendations. MMQUIQUEL / ERNESTO: [id number] /
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
--- NOTE | 2017-10-22 14:40 | US ---
EXAMINATION TYPE: US carotid duplex BILAT DATE OF EXAM: 10/22/2017 COMPARISON: Carotid ultrasound January 20, 2015 CLINICAL HISTORY: syncope. EXAM MEASUREMENTS: RIGHT: Peak Systolic Velocity (PSV) cm/sec ----- Right CCA: 58.6 ----- Right ICA: 87.5 ----- Right ECA: 78.7 ICA/CCA ratio: 1.5 RIGHT: End Diastole cm/sec ----- Right CCA: 16.8 ----- Right ICA: 39.6 ----- Right ECA: 16.0 LEFT: Peak Systolic Velocity (PSV) cm/sec ----- Left CCA: 66.7 ----- Left ICA: 87.2 ----- Left ECA: 93.3 ICA/CCA ratio: 1.3 LEFT: End Diastole cm/sec ----- Left CCA: 19.4 ----- Left ICA: 34.8 ----- Left ECA: 19.2 VERTEBRALS (direction of flow): Right Vertebral: Antegrade Left Vertebral: Antegrade Rhythm: Arrhythmia Grayscale images show no significant focal plaque at carotid bulb level bilaterally. Velocity measure ments and ratios are within normal limits bilaterally. IMPRESSION: No hemodynamically significant stenosis is identified in either internal carotid artery. Technologist notes arrhythmia during real-time scanning. If this is not known finding further invest igation with cardiac monitoring may be warranted.
[2017-10-22 16:01] VITALS: BP 116/53; TEMP 97.7
[2017-10-22 16:28] VITALS: PULSE 72
--- NOTE | 2017-10-22 18:31 | ECHOF ---
Referral Reason:chest pain MEASUREMENTS -------- HEIGHT: 165.1 cm WEIGHT: 110.7 kg BP: IVSd: 1.5 cm (0.6 - 1.1) LVIDd: 4.7 cm (3.9 - 5.3) LVPWd: 1.2 cm (0.6 - 1.1) IVSs: 1.9 cm LVIDs: 4.0 cm LVPWs: 1.1 cm LAESV Index (A-L): 46.77 ml/m Ao Diam: 3.5 cm (2.0 - 3.7) AV Cusp: 2.2 cm (1.5 - 2.6) LA Diam: 3.8 cm (2.7 - 3.8) MV EXCURSION: 14.013 mm (> 18.000) MV EF SLOPE: 69 mm/s (70 - 150) EPSS: 0.6 cm MV E Govind: 0.64 m/s MV DecT: 322 ms MV A Govind: 0.88 m/s MV E/A Ratio: 0.73 RAP: 5.00 mmHg RVSP: 26.32 mmHg FINDINGS -------- Paced rhythm. This was a technically adequate study. The left ventricular size is normal. There is moderate concentric left ventricular hypertrophy. O verall left ventricular systolic function is normal with, an EF between 55 - 60 %. The right ventricle is normal in size. LA is severely dilated >40 ml/m2 The right atrial size is normal. The aortic valve is trileaflet, and appears structurally normal. No aortic stenosis or regurgitation. Mild mitral annular calcification present. Mild mitral regurgitation is present. Mild tricuspid regurgitation present. There is no evidence of pulmonary hypertension. The right v entricular systolic pressure, as measured by Doppler, is 26.32mmHg. The pulmonic valve was not well visualized. The aortic root size is normal. There is no pericardial effusion. CONCLUSIONS -------- 1. Paced rhythm. 2. The left ventricular size is normal. 3. There is moderate concentric left ventricular hypertrophy. 4. Overall left ventricular systolic function is normal with, an EF between 55 - 60 %. 5. LA is severely dilated >40 ml/m2 6. The aortic valve is trileaflet, and appears structurally normal. No aortic stenosis or regurgitati on. 7. Mild mitral annular calcification present. 8. Mild mitral regurgitation is present. 9. Mild tricuspid regurgitation present. 10. There is no evidence of pulmonary hypertension. 11. The right ventricular systolic pressure, as measured by Doppler, is 26.32mmHg. 12. The pulmonic valve was not well visualized. 13. The aortic root size is normal. 14. There is no pericardial effusion. SPOOLER OPERATOR AUTOMATIC: Kristy Mancia RDCS
== END 2017-10-22 18:53 | disposition home or self-care (01) ==
LOC: EC 10:05 → 3OBS 12:22 → 3SUR 13:26 → 3OBS 10-22 07:59
PROVIDERS: ADMIT Family Medicine; ATTEND Family Medicine
DX: R55 Syncope and collapse (principal); R20.0 Anesthesia of skin; M25.511 Pain in right shoulder; S09.90XA Unspecified injury of head, initial encounter; J44.9 Chronic obstructive pulmonary disease, unspecified; I50.9 Heart failure, unspecified; M79.7 Fibromyalgia; R06.02 Shortness of breath; K21.9 Gastro-esophageal reflux disease without esophagitis; E78.5 Hyperlipidemia, unspecified; M19.90 Unspecified osteoarthritis, unspecified site; G47.33 Obstructive sleep apnea (adult) (pediatric); I11.0 Hypertensive heart disease with heart failure; I48.0 Paroxysmal atrial fibrillation; I47.1 Supraventricular tachycardia; F41.9 Anxiety disorder, unspecified; F32.9 Major depressive disorder, single episode, unspecified; E66.01 Morbid (severe) obesity due to excess calories; Z68.41 Body mass index [BMI] 40.0-44.9, adult; I95.9 Hypotension, unspecified; R35.0 Frequency of micturition; L03.119 Cellulitis of unspecified part of limb; M54.9 Dorsalgia, unspecified; D64.9 Anemia, unspecified; G43.909 Migraine, unspecified, not intractable, without status migrainosus; G89.4 Chronic pain syndrome; G40.909 Epilepsy, unspecified, not intractable, without status epilepticus; W18.30XA Fall on same level, unspecified, initial encounter; W22.09XA Striking against other stationary object, initial encounter; Z87.01 Personal history of pneumonia (recurrent); Z86.711 Personal history of pulmonary embolism; Z87.891 Personal history of nicotine dependence; Z90.81 Acquired absence of spleen; Z82.49 Family history of ischemic heart disease and other diseases of the circulatory system; Z82.62 Family history of osteoporosis; Z79.899 Other long term (current) drug therapy; Z79.01 Long term (current) use of anticoagulants; Z91.040 Latex allergy status; Z88.5 Allergy status to narcotic agent; Z91.013 Allergy to seafood; Z99.81 Dependence on supplemental oxygen; Z91.048 Other nonmedicinal substance allergy status; Z88.8 Allergy status to other drugs, medicaments and biological substances; Z91.018 Allergy to other foods; Z95.0 Presence of cardiac pacemaker; Z85.51 Personal history of malignant neoplasm of bladder; Z87.440 Personal history of urinary (tract) infections; Z96.611 Presence of right artificial shoulder joint; Z79.1 Long term (current) use of non-steroidal anti-inflammatories (NSAID)
CPT/HCPCS: 99285 ×2; 96361; 96374; 96375; 96376; 36415; 94640 ×3; 93005; 93306; 80053; 82550; 82553; 83735; 84484; 85025; 85610; 85730; 81001; 87086; 87077; 87186; 73030; 71046; 93880; 72125; 70450; G0378 ×3; J1940 ×2; J1885 ×2; J0690 ×2

== ENCOUNTER 2017-12-20 17:01 | Inpatient (IN) | payer MEDICARE, OTHER ==
[2017-12-20] MEDS ORDERED: MORPHINE SULFATE 4 MG/ML SYRINGE IVP STA (17:28)
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
--- NOTE | 2017-12-20 17:51 | XR ---
EXAMINATION TYPE: XR knee complete LT DATE OF EXAM: 12/20/2017 CLINICAL HISTORY: Left knee pain after a fall TECHNIQUE: Three views of the left knee are obtained. COMPARISON: None. FINDINGS: There is no acute fracture/dislocation evident in left knee. The tri-compartment joint sp aces demonstrate small marginal osteophytes more protuberant of the medial compartment. There is mild generalized osseous demineralization. No suprapatellar joint effusion. The overlying soft tissue anthony ears unremarkable. IMPRESSION: There is no acute fracture or dislocation in the left knee. Moderate tricompartmental ar thropathy.
--- NOTE | 2017-12-20 17:54 | XR ---
EXAMINATION TYPE: XR shoulder complete RT DATE OF EXAM: 12/20/2017 CLINICAL HISTORY: Limited range of motion and pain on the right shoulder after fall. TECHNIQUE: Three views of the right shoulder are obtained. COMPARISON: None. FINDINGS: There is a comminuted spiral fracture of the proximal diaphysis extending to the mid diaphy sis of the right humerus with large surrounding subcutaneous or intramuscular hematoma. The distal fr acture fragment is displaced medially approximately 4 mm. Fracture extends into the humeral head. Pos tsurgical changes of the acromioclavicular joint and surgical anchors from prior rotator cuff repair are noted of the humeral head. IMPRESSION: Comminuted spiral fracture of the proximal to mid humeral diaphysis with extension superi gaby into the humeral head. This is only minimally displaced approximately 4 mm. There is a large sof t tissue hematoma surrounding the humeral head.
[2017-12-20] MEDS ORDERED: HYDROcodone/APAP 5-325MG 1 EACH TAB PO STA ×2 (18:59→19:06)
--- NOTE | 2017-12-20 19:00 | XR ---
EXAMINATION TYPE: XR Hip LT and AP Pelvis DATE OF EXAM: 12/20/2017 COMPARISON: NONE HISTORY: Pain in the pelvis and left hip TECHNIQUE: A single AP view of the pelvis is obtained. Two views of the left hip are obtained. FINDINGS: There is no acute fracture/dislocation evident in the pelvis. The hip and sacroiliac join ts appear symmetric. There is mild to moderate bilateral femoral acetabular arthropathy. This is demo nstrated as acetabular sclerosis and joint space narrowing. The overlying soft tissue appears unremar kable. Two views of left hip show no acute fracture or dislocation. No focal lytic or sclerotic lesion seen in the proximal left femur. The overlying soft tissue is unremarkable. IMPRESSION: There is no acute fracture or dislocation in the pelvis or left hip. Mild to moderate bi lateral femoral acetabular arthropathy.
--- NOTE | 2017-12-20 19:10 | CT ---
EXAMINATION TYPE: CT brain savannaine wo con DATE OF EXAM: 12/20/2017 COMPARISON: 10/21/2017 HISTORY: FALL INJURY TODAY CT DLP: 1449.8 mGycm. Automated Exposure Control for Dose Reduction was Utilized. TECHNIQUE: CT scan of the head and cervical spine are performed without contrast. FINDINGS: There is no acute intracranial hemorrhage, mass effect, or midline shift identified. The re is an old lacunar injury of the left external capsule. The ventricles and sulci are symmetrically prominent compatible with age-related volume loss, mild in degree. The globes are intact and the vis ualized sinuses are clear. Postsurgical changes are seen of the mastoid air cells. Cervical spine is visualized in its entirety from C1 through upper thoracic levels and demonstrates s atisfactory alignment without evidence of acute fracture or dislocation. Multilevel moderate degener ative changes of the cervical spine are seen with probable bone island of the right facet of C7. Disc osteophyte complexes are seen at C3-C4, C4-C5, and C5-C6 minimally narrowing the spinal canal. There is mild grade 1 anterolisthesis of C6 on C7, likely on a degenerative basis. Prevertebral soft tissu e appears within normal limits. The C1-C2 articulation is unremarkable. There is a left thyroid les ion measuring 2.1 cm. IMPRESSION: 1. There is no acute fracture or dislocation evident in the cervical spine. 2. No acute intracranial hemorrhage, mass effect, or midline shift is seen. 2. Old lacunar injury of the left external capsule. 4. Moderate multilevel degenerative changes including grade 1 anterolisthesis of C6 on C7, likely on a degenerative basis. These changes result in mild spinal canal stenosis from C3 through C6. 5. Incidental note of a 2.1 cm left thyroid lesion. Further evaluation with thyroid ultrasound could be performed on a nonemergent basis.
[2017-12-20] MEDS ORDERED: NALOXONE 0.4 MG/ML 1 ML VIAL IV PRN (21:19)
[2017-12-20] MEDS ORDERED: ONDANSETRON 4 MG/2 ML VIAL IVP PRN (21:19)
[2017-12-21] MEDS ORDERED: MECLIZINE 12.5 MG TAB PO PRN (01:01)
[2017-12-21] MEDS: ALBUTEROL NEBULIZED 2.5 MG/3 ML INHALATION SCH ×4 (01:51→21:05)
[2017-12-21] MEDS: HYDROcodone/APAP 10-325MG 1 EACH TAB PO PRN ×4 (02:32→22:26)
[2017-12-21] MEDS: RIVAROXABAN 20 MG TAB PO SCH ×2 (02:34→22:25)
[2017-12-21] MEDS: FLECAINIDE 50 MG TAB PO SCH ×3 (02:34→22:25)
[2017-12-21] MEDS: ATORVASTATIN 40 MG TAB PO SCH ×2 (02:34→22:25)
[2017-12-21] MEDS: levETIRAcetam 500 MG TAB PO SCH ×3 (02:34→22:25)
[2017-12-21] MEDS: FUROSEMIDE 40 MG TAB PO SCH ×3 (02:35→10:28)
[2017-12-21] MEDS: SODIUM CHLORIDE 0.9% 1,000 ML IV SCH ×2 (03:34→22:39)
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
[2017-12-21] MEDS: IBUPROFEN 600 MG TAB PO SCH ×3 (10:13→22:26)
[2017-12-21] MEDS: MAGNESIUM OXIDE 400 MG TAB PO SCH (10:21)
[2017-12-21] MEDS: CHOLECALCIFEROL 1,000 UNIT TAB PO SCH (10:21)
[2017-12-21] MEDS: PANTOPRAZOLE 40 MG TABLET PO SCH (10:21)
[2017-12-21] MEDS: ACYCLOVIR 200 MG CAP PO SCH ×2 (10:22→22:27)
[2017-12-21] MEDS: ARIPiprazole 2 MG TAB PO SCH (10:23)
[2017-12-21] MEDS: FLUoxetine HCL 20 MG CAP PO SCH (10:23)
[2017-12-21] MEDS: NADOLOL 20 MG TAB PO SCH (10:24)
[2017-12-21] MEDS: POTASSIUM CHLORIDE ER 20 MEQ TAB.ER PO SCH ×3 (10:24→22:25)
[2017-12-21] MEDS: clonazePAM 1 MG TAB PO SCH ×4 (10:26→22:25)
[2017-12-21] MEDS: diphenhydrAMINE 25 MG CAP PO SCH ×2 (10:26→22:26)
[2017-12-21] MEDS: CALCIUM CARBONATE 500 MG CHEWABLE PO SCH (10:27)
[2017-12-21] MEDS: NON-FORMULARY DRUG (Omega-3 Fatty Acids/Fish Oil [Fish Oil 1,000 Mg Softgel] 1 CAP) PO SCH (10:29)
[2017-12-21] MEDS: DICLOFENAC SODIUM GEL 100 GM TUBE TOPICAL SCH ×2 (10:29→22:28)
[2017-12-21] MEDS: MORPHINE SULFATE 4 MG/ML SYRINGE IVP PRN (20:11)
[2017-12-22] MEDS: FUROSEMIDE 40 MG TAB PO SCH ×3 (00:26→19:59)
[2017-12-22] MEDS: MORPHINE SULFATE 4 MG/ML SYRINGE IVP PRN ×4 (01:38→21:27)
[2017-12-22] MEDS: CALCIUM CARBONATE 500 MG CHEWABLE PO SCH ×3 (01:39→19:57)
[2017-12-22] MEDS: HYDROcodone/APAP 10-325MG 1 EACH TAB PO PRN ×3 (04:48→17:19)
[2017-12-22] MEDS: ALBUTEROL NEBULIZED 2.5 MG/3 ML INHALATION SCH ×3 (07:25→19:34)
[2017-12-22] MEDS: NON-FORMULARY DRUG (Omega-3 Fatty Acids/Fish Oil [Fish Oil 1,000 Mg Softgel] 1 CAP) PO SCH (09:20)
[2017-12-22] MEDS: clonazePAM 1 MG TAB PO SCH ×4 (09:20→19:57)
[2017-12-22] MEDS: ACYCLOVIR 200 MG CAP PO SCH ×2 (09:20→19:56)
[2017-12-22] MEDS: levETIRAcetam 500 MG TAB PO SCH ×2 (09:20→19:59)
[2017-12-22] MEDS: NADOLOL 20 MG TAB PO SCH (09:20)
[2017-12-22] MEDS: MAGNESIUM OXIDE 400 MG TAB PO SCH (09:20)
[2017-12-22] MEDS: POTASSIUM CHLORIDE ER 20 MEQ TAB.ER PO SCH ×3 (09:20→19:59)
[2017-12-22] MEDS: FLUoxetine HCL 20 MG CAP PO SCH (09:21)
[2017-12-22] MEDS: FLECAINIDE 50 MG TAB PO SCH ×2 (09:21→19:58)
[2017-12-22] MEDS: CHOLECALCIFEROL 1,000 UNIT TAB PO SCH (09:22)
[2017-12-22] MEDS: ARIPiprazole 2 MG TAB PO SCH (09:22)
[2017-12-22] MEDS: PANTOPRAZOLE 40 MG TABLET PO SCH (09:22)
[2017-12-22] MEDS: IBUPROFEN 600 MG TAB PO SCH ×3 (09:23→19:59)
[2017-12-22] MEDS: diphenhydrAMINE 25 MG CAP PO SCH ×2 (09:29→20:01)
[2017-12-22] MEDS: DICLOFENAC SODIUM GEL 100 GM TUBE TOPICAL SCH ×2 (09:29→19:57)
--- NOTE | 2017-12-22 10:03 | HP ---
HISTORY AND PHYSICAL DATE OF SERVICE: 12/21/2017 CHIEF COMPLAINT: A 72-year-old white female with right humeral fracture. HISTORY OF PRESENT ILLNESS: This is a 80-year-old white female admitted to the emergency room after experiencing a fall at home, land on her left side. Denies any loss consciousness. Severe right shoulder pain radiating to her left hip and left knee, tingling to the upper arm, lower extremity. She was seen by Orthopedics. She was unable to take care of herself at home. Possible surgery is planned versus sling for 6-8 weeks of her right arm. She will need senior living placement at this time. She has 8 to 9/10 pain in her right shoulder. HOME MEDICINES: Omeprazole, Xarelto, Corgard, Zocor, Tambocor, Klonopin, Keppra, Prozac, magnesium, calcium, [place] and Motrin, meloxicam, Zovirax, vitamin D, Voltaren gel, vitamin D2, Lasix, meclizine, K-Dur, Benadryl. ALLERGIES: ADVAIR, SYMBICORT, SHELLFISH, SPIRIVA, AND MOLD. REVIEW OF SYSTEMS: Fourteen-point review of systems negative except for mentioned in HPI. PAST MEDICAL HISTORY: Fibromyalgia, GERD, dyslipidemia, osteoarthritis, pneumonia, pulmonary embolism, seizure disorder, sleep apnea, atrial fibrillation, asthma, cancer, chest pain, angina, heart failure, COPD, paroxysmal atrial fibrillation, cardiac ablation, bladder cancer with surgery, chronic pain syndrome, osteoporosis, anemia, frequent UTI, psoriasis, staph infection, bladder surgery, cardiac ablation, heart catheterization, pacemakers, right shoulder replacement, right knee replacements, splenectomy, permanent pacemaker, anxiety, depression. SOCIAL HISTORY: Former smoker. No alcohol. No illicit drugs. FAMILY HISTORY: Father myocardial infarction. Mother osteoporosis, TB. PHYSICAL EXAM: Temp 98, respiratory 18-20, blood pressure is 130s to 140s over 60s, O2 94 to 98% on room air. Cardiovascular S1, S2 without any murmurs, rubs or gallops. Lungs show normal breath sounds. Absent wheezes. GI soft, nontender. Hematologic negative Homans. Right arm is in a sling. She has tenderness in her hip. Range of motion of her legs is fair. Psych alert and oriented x3. Ophthalmological: Pupils equal, round, react to light and accommodation. SKIN: Warm, dry, intact. ASSESSMENT: 1. Generalized debility, unable to take care of herself. 2. Right humeral fracture, acute due to falls. 3. Frequent falls. 4. Hematoma of the humeral head. 5. She has arthritis of the knees, knee contusions. 6. Multiple medical conditions. 7. Prior stroke. 8. Multiple wounds. 9. Degenerative disc disease. 10.Chronic obstructive pulmonary disease versus asthma, oxygen-dependent. Orthopedic consult will be needed. Rehab placement will be needed. Continue medications. MMODL / IJN: [id number] /
--- NOTE | 2017-12-22 10:48 | XR ---
EXAMINATION TYPE: XR chest 2V DATE OF EXAM: 12/22/2017 HISTORY: fever. REFERENCE: Previous study dated 10/21/2017. FINDINGS: There is a bipolar pacemaker place on the left. The heart is mildly enlarged. There is some platelike atelectasis in the right lung. There is atelect atic change at the left lung base. Pleural spaces appear clear. IMPRESSION: 1. MILD CARDIOMEGALY. 2. BIBASILAR ATELECTASIS.
[2017-12-22] MEDS: LEVOFLOXACIN 500 MG TAB PO SCH (11:07)
[2017-12-22 16:14] LABS: Appearance,Urine Clear (Clear); Bacteria,Urine Many /hpf; Bilirubin,Urine Negative (Negative); Blood,Urine Negative (Negative); Color,Urine Yellow; Glucose,Urine (UA) Negative (Negative); Hyaline Casts,Urine 1 /lpf (0-2); Ketones,Urine Negative (Negative); Leukocyte Esterase,Urine Small (Negative); Mucus,Urine Rare /hpf; Nitrite,Urine Positive (Negative); Protein,Urine Trace (Negative); RBC,Urine <1 /hpf (0-5); Specific Gravity,Urine 1.021 (1.001-1.035); Squamous Epithelial Cell,Urine 3 /hpf (0-4); Urobilinogen,Urine <2.0 mg/dL (<2.0); WBC,Urine 21 /hpf (0-5)
[2017-12-22] MEDS: ATORVASTATIN 40 MG TAB PO SCH (19:57)
[2017-12-22] MEDS: RIVAROXABAN 20 MG TAB PO SCH (19:59)
--- NOTE | 2017-12-22 21:06 | PN ---
PROGRESS NOTE SUBJECTIVE: This is a 72-year-old white female with right humeral fracture, PT/OT exam, getting him up, ambulating. Risk factor modification was done with the patient. VITAL SIGNS: Stable. Afebrile. Temp 99.8, pulse 66, respirations 15, blood pressure 124/68. CARDIOVASCULAR: S1, S2. LUNGS: Clear. GI: Soft. UA shows 21 white cells, positive nitrates. PLAN: Will continue to treat urinary tract infection with Lasix. Continue with PT, OT for fractures. Please see further orders. [facility] placement will be done. MMODL / IJN: [id number] /
[2017-12-22] MEDS: SODIUM CHLORIDE 0.9% 1,000 ML IV SCH (22:28)
[2017-12-23] MEDS: HYDROcodone/APAP 10-325MG 1 EACH TAB PO PRN ×5 (00:11→23:00)
[2017-12-23] MEDS: MORPHINE SULFATE 4 MG/ML SYRINGE IVP PRN ×5 (02:50→21:29)
[2017-12-23 07:28] LABS: ALT 44 U/L (9-52); AST 41 U/L (14-36); Albumin 3.1 g/dL (3.5-5.0); Alkaline Phosphatase 40 U/L (38-126); Anion Gap 8 mmol/L; Blood Urea Nitrogen 19 mg/dL (7-17); Calcium 8.5 mg/dL (8.4-10.2); Carbon Dioxide 32 mmol/L (22-30); Chloride 99 mmol/L (98-107); Glucose 98 mg/dL (74-99); Potassium 3.9 mmol/L (3.5-5.1); Sodium 139 mmol/L (137-145); Total Bilirubin 0.3 mg/dL (0.2-1.3); Total Protein 5.5 g/dL (6.3-8.2)
[2017-12-23 07:33] LABS: Basophils % (A) 0 %; Eosinophils # (A) 0.2 k/uL (0-0.7); Eosinophils % (A) 3 %; HGB 10.1 gm/dL (11.4-16.0); Hypochromasia Moderate; Lymphocytes # (A) 1.2 k/uL (1.0-4.8); Lymphocytes % (A) 21 %; MCH 26.6 pg (25.0-35.0); MCHC 30.7 g/dL (31.0-37.0); MCV 86.9 fL (80.0-100.0); Mean Platelet Volume 7.6; Monocytes # (A) 0.7 k/uL (0-1.0); Monocytes % (A) 13 %; Neutrophils # (A) 3.3 k/uL (1.3-7.7); Neutrophils % (A) 59 %; Platelet Count 330 k/uL (150-450); RDW 15.1 % (11.5-15.5); WBC 5.7 k/uL (3.8-10.6)
[2017-12-23] MEDS: DICLOFENAC SODIUM GEL 100 GM TUBE TOPICAL SCH ×2 (08:49→20:17)
[2017-12-23] MEDS: CALCIUM CARBONATE 500 MG CHEWABLE PO SCH ×2 (08:49→20:17)
[2017-12-23] MEDS: FLUoxetine HCL 20 MG CAP PO SCH (08:50)
[2017-12-23] MEDS: FLECAINIDE 50 MG TAB PO SCH ×2 (08:50→20:17)
[2017-12-23] MEDS: ACYCLOVIR 200 MG CAP PO SCH ×2 (08:50→20:16)
[2017-12-23] MEDS: clonazePAM 1 MG TAB PO SCH ×4 (08:50→20:17)
[2017-12-23] MEDS: levETIRAcetam 500 MG TAB PO SCH ×2 (08:50→20:17)
[2017-12-23] MEDS: FUROSEMIDE 40 MG TAB PO SCH ×2 (08:50→20:17)
[2017-12-23] MEDS: POTASSIUM CHLORIDE ER 20 MEQ TAB.ER PO SCH ×3 (08:50→20:18)
[2017-12-23] MEDS: NADOLOL 20 MG TAB PO SCH (08:50)
[2017-12-23] MEDS: ARIPiprazole 2 MG TAB PO SCH (08:50)
[2017-12-23] MEDS: PANTOPRAZOLE 40 MG TABLET PO SCH (08:50)
[2017-12-23] MEDS: CHOLECALCIFEROL 1,000 UNIT TAB PO SCH (08:51)
[2017-12-23] MEDS: MAGNESIUM OXIDE 400 MG TAB PO SCH (08:51)
[2017-12-23] MEDS: LEVOFLOXACIN 500 MG TAB PO SCH (08:51)
[2017-12-23] MEDS: NON-FORMULARY DRUG (Omega-3 Fatty Acids/Fish Oil [Fish Oil 1,000 Mg Softgel] 1 CAP) PO SCH (08:51)
[2017-12-23] MEDS: ALBUTEROL NEBULIZED 2.5 MG/3 ML INHALATION SCH ×3 (09:50→19:14)
[2017-12-23 11:32] LABS: Glucose,Whole Blood 113 mg/dL (75-99)
--- NOTE | 2017-12-23 18:28 | PN ---
PROGRESS NOTE SUBJECTIVE: 72-year-old white female with right humeral fracture. Second opinion is requested by her for orthopedics because she wants her arm operated on. Vital signs appear to be stable. Cardiovascular S1-S2. Lungs clear. Gastroenterology: Soft. Hematology: Negative Homans. ASSESSMENT AND PLAN: 1. Right humeral fracture. 2. Frequent falls. 3. Chronic obstructive pulmonary disease. End-stage. Continue current treatments. Follow up in next 24-48 hours. 4. Dyslipidemia. 5. Will be continued with blood pressure medicines. 6. Anxiety. 7. Blood pressure control. 8. Urinary tract infection, will be given Levaquin for that. 9. Bronchitis. 10.Xarelto will be continued for blood thinner. 11.Please see further orders. 12.long-term placement needed. MMODL / IJN: [id number] /
[2017-12-23] MEDS: RIVAROXABAN 20 MG TAB PO SCH (20:17)
[2017-12-23] MEDS: ATORVASTATIN 40 MG TAB PO SCH (20:17)
[2017-12-23] MEDS: SODIUM CHLORIDE 0.9% 1,000 ML IV SCH (22:55)
[2017-12-24] MEDS: MORPHINE SULFATE 4 MG/ML SYRINGE IVP PRN ×5 (02:48→19:15)
[2017-12-24] MEDS: HYDROcodone/APAP 10-325MG 1 EACH TAB PO PRN ×3 (05:15→20:23)
[2017-12-24] MEDS: ALBUTEROL NEBULIZED 2.5 MG/3 ML INHALATION SCH ×3 (07:44→21:21)
[2017-12-24] MEDS: FLECAINIDE 50 MG TAB PO SCH ×2 (08:00→20:27)
[2017-12-24] MEDS: POTASSIUM CHLORIDE ER 20 MEQ TAB.ER PO SCH ×3 (08:00→21:58)
[2017-12-24] MEDS: NADOLOL 20 MG TAB PO SCH (08:00)
[2017-12-24] MEDS: CALCIUM CARBONATE 500 MG CHEWABLE PO SCH ×2 (08:00→20:27)
[2017-12-24] MEDS: MAGNESIUM OXIDE 400 MG TAB PO SCH (08:00)
[2017-12-24] MEDS: FLUoxetine HCL 20 MG CAP PO SCH (08:01)
[2017-12-24] MEDS: ACYCLOVIR 200 MG CAP PO SCH ×2 (08:01→20:28)
[2017-12-24] MEDS: levETIRAcetam 500 MG TAB PO SCH ×2 (08:02→21:56)
[2017-12-24] MEDS: CHOLECALCIFEROL 1,000 UNIT TAB PO SCH (08:03)
[2017-12-24] MEDS: PANTOPRAZOLE 40 MG TABLET PO SCH (08:03)
[2017-12-24] MEDS: FUROSEMIDE 40 MG TAB PO SCH ×2 (08:03→21:58)
[2017-12-24] MEDS: DICLOFENAC SODIUM GEL 100 GM TUBE TOPICAL SCH ×2 (08:04→20:28)
[2017-12-24] MEDS: NON-FORMULARY DRUG (Omega-3 Fatty Acids/Fish Oil [Fish Oil 1,000 Mg Softgel] 1 CAP) PO SCH (08:05)
[2017-12-24] MEDS: clonazePAM 1 MG TAB PO SCH ×4 (08:06→21:56)
[2017-12-24] MEDS: ARIPiprazole 2 MG TAB PO SCH (08:08)
[2017-12-24] MEDS: LEVOFLOXACIN 500 MG TAB PO SCH (09:06)
--- NOTE | 2017-12-24 12:53 | CDI ---
Last Revision, July 2017 Documentation Clarification Form Date: 12/24/2017 12:49:00 PM From: Ana Luisa MoranScott [facility], CCDS Admit Date: 12/22/2017 9:54:00 AM Patient Name: Zari Mae Visit Number: [id number] Discharge Date: ATTENTION: The Clinical Documentation Specialists (CDI) and [facility] Coding Staff appreciate your assistance in clarifying documentation. Please respond to the clarification below the line at the bottom and electronically sign. The CDI & [facility] Coding staff will review the response and follow-up if needed. Please note: Queries are made part of the Legal Health Record. If you have any questions, please contact the author of this message via ITS. Dr. James Mackay: 72 yo female, presented to after a fall at home, diagnosed with right humeral fracture. History: COPD & Sleep Apnea on Home O2 2Lnc, CHF on po Lasix 40 mg. Former smoker. Clinical Indicators: Vital signs: T 98, P 65, R 18, BP 138/65, PO 94 3Lnc. BMI: 40.9 LAB: CO2 32^, BUN 19^. RAD: CXR: Mild cardiomegaly, Bibasilar atelectasis. Treatment: IV Ms, PO abx for UTI, O2 2Lnc. Cont home dose po Lasix 40 mg. In your professional opinion, can you please clarify if these findings signify one of the following conditions? Chronic Respiratory Failure Other Respiratory Diagnosis Unable to determine Specificity: o With hypercapnia? o With hypoxia? o Other Diagnosis, please specify o Unable to determine Please continue to document in your progress notes and discharge summary in order to capture severity of illness and risk of mortality. Include clinical findings that support your diagnosis. MTDD
--- NOTE | 2017-12-24 13:00 | CDI ---
Last Revision, July 2017 Documentation Clarification Form Date: 12/24/2017 12:58:00 PM From: Ana Luisa MoranScottSVETLANA, CCDS Admit Date: 12/22/2017 9:54:00 AM Patient Name: Zari Mae Visit Number: [id number] Discharge Date: ATTENTION: The Clinical Documentation Specialists (CDI) and [facility] Coding Staff appreciate your assistance in clarifying documentation. Please respond to the clarification below the line at the bottom and electronically sign. The CDI & [facility] Coding staff will review the response and follow-up if needed. Please note: Queries are made part of the Legal Health Record. If you have any questions, please contact the author of this message via ITS. Dr. James Mackay: 72 yo female, presented to after a fall at home, diagnosed with right humeral fracture. History: COPD & Sleep Apnea on Home O2 2Lnc, CHF on po Lasix 40 mg. Former smoker. Clinical Indicators: Vital signs: T 98, P 65, R 18, BP 138/65, PO 94 3Lnc. BMI: 40.9 LAB: CO2 32^, BUN 19^. RAD: CXR: Mild cardiomegaly, Bibasilar atelectasis. Treatment: IV Ms, PO abx for UTI, O2 2Lnc. Cont home dose po Lasix 40 mg. In your professional opinion, can you please clarify the acuity and type of CHF if known? Systolic Heart Failure: o Chronic Diastolic Heart Failure: o Chronic Systolic & Diastolic Heart Failure: o Chronic Unable to Determine Other, please specify Please continue to document in your progress notes and discharge summary in order to capture severity of illness and risk of mortality. Include clinical findings that support your diagnosis. MTDD
[2017-12-24 17:33] VITALS: RESP 16
[2017-12-24] MEDS: SODIUM CHLORIDE 0.9% 1,000 ML IV SCH (20:24)
[2017-12-24] MEDS: ATORVASTATIN 40 MG TAB PO SCH (20:27)
[2017-12-24] MEDS: RIVAROXABAN 20 MG TAB PO SCH (20:28)
--- NOTE | 2017-12-24 21:35 | PN ---
PROGRESS NOTE SUBJECTIVE: 72-year-old white female with fracture of the humerus in the right arm. The patient is requesting a 2nd opinion from Orthopedic surgery. She is having no chest pain, shortness of breath. No lightheadedness, syncope. No nausea, vomiting. Right arm is in a sling. LUNGS: Transmitted upper sounds. CARDIOVASCULAR: S1, S2. Abdomen is distended, soft. Hematology: 2+ pedal edema. ASSESSMENT: 1. Right radial fracture. 2. Frequent falls. 3. Chronic obstructive pulmonary disease end-stage. 4. Dyslipidemia. 5. Anxiety. 6. Hypertension. 7. Urinary tract infection. 8. History of atrial fibrillation. shelter placement will be needed. Please see further orders. MMODL / IJN: [id number] /
--- NOTE | 2017-12-24 22:31 | DS ---
DISCHARGE SUMMARY DATE OF DISCHARGE: 12/25/2017. DISCHARGE MEDICATIONS: 1. Ventolin nebulizer 2.5 mg t.i.d. 2. Prozac 60 mg daily. 3. [place] 10/325 1 every 4 hours p.r.n. 4. Xarelto 20 mg daily. 5. Omeprazole to 40 mg daily. 6. Corgard 20 mg daily. 7. Zocor 40 mg daily. 8. Flecainide 100 mg q.12 hours. 9. Klonopin 1 mg p.o. q.i.d. 10.Keppra 2000 mg q.12 hours. 11. 2 mg daily. 12.Magnesium 500 mg daily. 13.Motrin 600 t.i.d. 14.Calcium carbonate 600 mg b.i.d. 15.Vitamin D 66347 units every week. 16.Zovirax 400 mg b.i.d. 17.Potassium chloride 20 mEq t.i.d. 18.Lasix 40 mg b.i.d. CONDITION: Stable. PROGNOSIS: Guarded. Ambulate as tolerated. DISCHARGE DIAGNOSES: 1. Acute humeral fracture, right arm. She will need physical therapy, 6 weeks of arm in a sling. 2. Degenerate scoliosis. 3. Dehydration. 4. Chronic obstructive pulmonary disease. 5. Complex partial seizure. 6. Vitamin D deficiency. 7. Osteoarthritis. 8. Hypertension. 9. Dyslipidemia. 10.History of atrial fibrillation. HOSPITAL COURSE OF EVENTS: White female came in the hospital with a right humeral fracture. No surgery is planned. She wants second opinion from a surgeon. We will get that prior to discharge, but most likely for 6 weeks. Physical therapy due to poor ambulation. She is unable to take care of herself at home. She will need to go to rehab center. She is unable to use the right arm. She is right handed. Consult with rehab physicians are done. Medications reviewed. Please see further orders. MMODL / IJN: [id number] /
[2017-12-25] MEDS: HYDROcodone/APAP 10-325MG 1 EACH TAB PO PRN ×4 (00:39→13:42)
[2017-12-25] MEDS: ALBUTEROL NEBULIZED 2.5 MG/3 ML INHALATION SCH ×2 (07:09→13:55)
[2017-12-25] MEDS: DICLOFENAC SODIUM GEL 100 GM TUBE TOPICAL SCH (08:11)
[2017-12-25] MEDS: levETIRAcetam 500 MG TAB PO SCH (08:11)
[2017-12-25] MEDS: FLUoxetine HCL 20 MG CAP PO SCH (08:12)
[2017-12-25] MEDS: NADOLOL 20 MG TAB PO SCH (08:12)
[2017-12-25] MEDS: PANTOPRAZOLE 40 MG TABLET PO SCH (08:13)
[2017-12-25] MEDS: POTASSIUM CHLORIDE ER 20 MEQ TAB.ER PO SCH (08:13)
[2017-12-25] MEDS: NON-FORMULARY DRUG (Omega-3 Fatty Acids/Fish Oil [Fish Oil 1,000 Mg Softgel] 1 CAP) PO SCH (08:13)
[2017-12-25] MEDS: CALCIUM CARBONATE 500 MG CHEWABLE PO SCH (08:13)
[2017-12-25] MEDS: FLECAINIDE 50 MG TAB PO SCH (08:13)
[2017-12-25] MEDS: CHOLECALCIFEROL 1,000 UNIT TAB PO SCH (08:14)
[2017-12-25] MEDS: FUROSEMIDE 40 MG TAB PO SCH (08:14)
[2017-12-25] MEDS: MAGNESIUM OXIDE 400 MG TAB PO SCH (08:15)
[2017-12-25] MEDS: ARIPiprazole 2 MG TAB PO SCH (08:16)
[2017-12-25] MEDS: ACYCLOVIR 200 MG CAP PO SCH (08:16)
[2017-12-25] MEDS: clonazePAM 1 MG TAB PO SCH ×3 (08:19→13:14)
[2017-12-25] MEDS: LEVOFLOXACIN 500 MG TAB PO SCH (09:26)
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
[2017-12-25 14:52] VITALS: BP 119/76; PULSE 62; TEMP 98.3
--- NOTE | 2017-12-26 08:27 | CDI ---
Last Revision, July 2017 Documentation Clarification Form Date: 12/24/2017 12:49:00 PM Resubmitted 12/26/2017 08:26:00 AM From: Ana Luisa Scott [facility], CCDS Admit Date: 12/22/2017 9:54:00 AM Patient Name: Zari Mae Visit Number: [id number] Discharge Date: 12/25/2017 ATTENTION: The Clinical Documentation Specialists (CDI) and [facility] Coding Staff appreciate your assistance in clarifying documentation. Please respond to the clarification below the line at the bottom and electronically sign. The CDI & [facility] Coding staff will review the response and follow-up if needed. Please note: Queries are made part of the Legal Health Record. If you have any questions, please contact the author of this message via ITS. Dr. James Mackay: 72 yo female, presented to after a fall at home, diagnosed with right humeral fracture. History: COPD & Sleep Apnea on Home O2 2Lnc, CHF on po Lasix 40 mg. Former smoker. Clinical Indicators: Vital signs: T 98, P 65, R 18, BP 138/65, PO 94 3Lnc. BMI: 40.9 LAB: CO2 32^, BUN 19^. RAD: CXR: Mild cardiomegaly, Bibasilar atelectasis. Treatment: IV Ms, PO abx for UTI, O2 2Lnc. Cont home dose po Lasix 40 mg. In your professional opinion, can you please clarify if these findings signify one of the following conditions? Chronic Respiratory Failure Other Respiratory Diagnosis Unable to determine Specificity: With hypercapnia? With hypoxia? Other Diagnosis, please specify Unable to determine Please continue to document in your progress notes and discharge summary in order to capture severity of illness and risk of mortality. Include clinical findings that support your diagnosis. MTDD
--- NOTE | 2017-12-26 08:30 | CDI ---
Last Revision, July 2017 Documentation Clarification Form Date: 12/24/2017 12:58:00 PM Resubmitted 12/26/2017 08:28:00 AM From: Ana Luisa Scott [facility], CCDS Admit Date: 12/22/2017 9:54:00 AM Patient Name: Zari Mae Visit Number: [id number] Discharge Date: 12/25/2017 ATTENTION: The Clinical Documentation Specialists (CDI) and [facility] Coding Staff appreciate your assistance in clarifying documentation. Please respond to the clarification below the line at the bottom and electronically sign. The CDI & [facility] Coding staff will review the response and follow-up if needed. Please note: Queries are made part of the Legal Health Record. If you have any questions, please contact the author of this message via ITS. Dr. James Mackay: 72 yo female, presented to after a fall at home, diagnosed with right humeral fracture. History: COPD & Sleep Apnea on Home O2 2Lnc, CHF on po Lasix 40 mg. Former smoker. Clinical Indicators: Vital signs: T 98, P 65, R 18, BP 138/65, PO 94 3Lnc. BMI: 40.9 LAB: CO2 32^, BUN 19^. RAD: CXR: Mild cardiomegaly, Bibasilar atelectasis. Treatment: IV Ms, PO abx for UTI, O2 2Lnc. Cont home dose po Lasix 40 mg. In your professional opinion, can you please clarify the acuity and type of CHF if known? Systolic Heart Failure: o Chronic Diastolic Heart Failure: o Chronic Systolic & Diastolic Heart Failure: o Chronic Unable to Determine Other, please specify Please continue to document in your progress notes and discharge summary in order to capture severity of illness and risk of mortality. Include clinical findings that support your diagnosis. MTDD
--- NOTE | 2017-12-27 07:38 | DS ---
DISCHARGE SUMMARY ADDENDUM: Please add under discharge summary: 1. Chronic respiratory failure secondary to end-stage chronic obstructive pulmonary disease. 2. Chronic diastolic heart failure. MMODL / IJN: [id number] /
== END 2017-12-25 16:00 | DRG 563 ==
LOC: EC 17:01 → INTOOBSV 21:19 → 3SUR 21:19 → OBSVTOIN 12-22 09:54 → 3SUR 12-23 08:37
PROVIDERS: ADMIT Family Medicine; ATTEND Family Medicine
DX: S42.291A Other displaced fracture of upper end of right humerus, initial encounter for closed fracture (principal); G40.209 Localization-related (focal) (partial) symptomatic epilepsy and epileptic syndromes with complex partial seizures, not intractable, without status epilepticus; N39.0 Urinary tract infection, site not specified; J96.10 Chronic respiratory failure, unspecified whether with hypoxia or hypercapnia; I50.32 Chronic diastolic (congestive) heart failure; E55.9 Vitamin D deficiency, unspecified; E78.5 Hyperlipidemia, unspecified; E86.0 Dehydration; F41.9 Anxiety disorder, unspecified; G47.30 Sleep apnea, unspecified; G89.4 Chronic pain syndrome; I11.0 Hypertensive heart disease with heart failure; I48.0 Paroxysmal atrial fibrillation; J44.9 Chronic obstructive pulmonary disease, unspecified; K21.9 Gastro-esophageal reflux disease without esophagitis; M17.0 Bilateral primary osteoarthritis of knee; M41.9 Scoliosis, unspecified; M79.7 Fibromyalgia; M81.0 Age-related osteoporosis without current pathological fracture; R29.6 Repeated falls; W01.0XXA Fall on same level from slipping, tripping and stumbling without subsequent striking against object, initial encounter; Y92.009 Unspecified place in unspecified non-institutional (private) residence as the place of occurrence of the external cause; Z79.01 Long term (current) use of anticoagulants; Z79.899 Other long term (current) drug therapy; Z82.49 Family history of ischemic heart disease and other diseases of the circulatory system; Z82.62 Family history of osteoporosis; Z85.51 Personal history of malignant neoplasm of bladder; Z86.711 Personal history of pulmonary embolism; Z86.73 Personal history of transient ischemic attack (TIA), and cerebral infarction without residual deficits; Z87.440 Personal history of urinary (tract) infections; Z87.891 Personal history of nicotine dependence; Z90.81 Acquired absence of spleen; Z96.611 Presence of right artificial shoulder joint; Z99.81 Dependence on supplemental oxygen
CPT/HCPCS: 70450; 71046; 72125; 73502; 80053; 81001; 85025; 87077; 87086; 87186; 94640; 94760; 96374; 99285

== ENCOUNTER 2018-02-15 15:09 | Inpatient (IN) | payer MEDICARE, OTHER ==
[2018-02-15] MEDS ORDERED: SODIUM CHLORIDE 0.9% 500 ML IV STA (15:32)
[2018-02-15] MEDS ORDERED: SODIUM CHLORIDE 0.9% 1,000 ML IV STA ×2 (15:32→17:42)
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
[2018-02-15 17:03] LABS: Anisocytosis Slight; Basophils % (A) 0 %; Eosinophils # (A) 0.2 k/uL (0-0.7); Eosinophils % (A) 1 %; HCT 43.2 % (34.0-46.0); Hypochromasia Slight; Lymphocytes # (A) 4.1 k/uL (1.0-4.8); Lymphocytes % (A) 27 %; MCH 26.1 pg (25.0-35.0); MCHC 30.4 g/dL (31.0-37.0); MCV 85.8 fL (80.0-100.0); Mean Platelet Volume 7.2; Monocytes % (A) 7 %; Neutrophils # (A) 9.5 k/uL (1.3-7.7); Neutrophils % (A) 63 %; Platelet Count 449 k/uL (150-450); RBC 5.03 m/uL (3.80-5.40); RDW 16.2 % (11.5-15.5)
[2018-02-15 17:21] LABS: ALT 31 U/L (9-52); AST 23 U/L (14-36); Albumin 4.1 g/dL (3.5-5.0); Alkaline Phosphatase 48 U/L (38-126); Anion Gap 13 mmol/L; Blood Urea Nitrogen 50 mg/dL (7-17); Calcium 9.4 mg/dL (8.4-10.2); Carbon Dioxide 30 mmol/L (22-30); Chloride 97 mmol/L (98-107); Glucose 106 mg/dL (74-99); Magnesium 1.8 mg/dL (1.6-2.3); Potassium 3.2 mmol/L (3.5-5.1); Sodium 140 mmol/L (137-145); Total Bilirubin 0.7 mg/dL (0.2-1.3); Total Protein 7.1 g/dL (6.3-8.2)
[2018-02-15 17:27] LABS: Creatine Kinase <20 U/L (30-135)
[2018-02-15 17:30] LABS: HGB 13.1 gm/dL (11.4-16.0)
--- NOTE | 2018-02-15 17:36 | XR ---
EXAMINATION TYPE: XR chest 2V DATE OF EXAM: 02/15/2018 COMPARISON: 12/22/2017 HISTORY: Short of breath TECHNIQUE: Frontal and lateral views of the chest are obtained. FINDINGS: There is no heart failure nor confluent pneumonic infiltrate. Costophrenic angles are shruthi r. There is left axillary pacemaker with the lead tips in the right ventricle. Bony thorax is intact. Exam is limited by the patient size. IMPRESSION: Limited exam. There is probably minimal atelectasis at the left lung base. No significan t change..
[2018-02-15 17:39] LABS: Creatine Kinase MB 0.5 ng/mL (0.0-2.4); Troponin I <0.012 ng/mL (0.000-0.034)
[2018-02-15 17:50] LABS: INR 1.1 (<1.2); Partial Thromboplastin Time 19.3 sec (22.0-30.0); Prothrombin Time 10.4 sec (9.0-12.0)
[2018-02-15] MEDS ORDERED: POTASSIUM CHLORIDE ER 20 MEQ TAB.ER PO STA (19:11)
[2018-02-15] MEDS ORDERED: POTASSIUM CHLORIDE 20 MEQ in WATER FOR INJECTION 1 100ML.BAG IVPB STA (19:11)
[2018-02-15] MEDS ORDERED: NALOXONE 0.4 MG/ML 1 ML VIAL IV PRN (19:22)
[2018-02-15] MEDS: DILTIAZEM 50 MG in SODIUM CHLORIDE 0.9% 40 ML IV SCH (19:39)
[2018-02-15] MEDS: DILTIAZEM DRIP BOLUS FROM BAG 1 MG SOLN IV ONE ×2 (19:41→19:42)
[2018-02-15 20:32] VITALS: BMI 35.8
[2018-02-15] MEDS: clonazePAM 1 MG TAB PO SCH (20:33)
[2018-02-15] MEDS: SODIUM CHLORIDE 0.9% 1,000 ML IV SCH (20:34)
[2018-02-15] MEDS: FLECAINIDE 50 MG TAB PO SCH (21:28)
[2018-02-15] MEDS: levETIRAcetam 500 MG TAB PO SCH (21:28)
[2018-02-15] MEDS: CEPHALEXIN 500 MG CAP PO SCH (21:29)
[2018-02-15] MEDS: IBUPROFEN 600 MG TAB PO SCH (21:29)
[2018-02-15] MEDS: HYDROcodone/APAP 10-325MG 1 EACH TAB PO SCH (21:29)
[2018-02-15] MEDS: POTASSIUM CHLORIDE ER 20 MEQ TAB.ER PO SCH (21:29)
[2018-02-15] MEDS: FUROSEMIDE 40 MG TAB PO SCH (21:29)
[2018-02-15] MEDS: ACYCLOVIR 200 MG CAP PO SCH (21:29)
[2018-02-15] MEDS: RIVAROXABAN 20 MG TAB PO SCH (21:29)
[2018-02-15] MEDS: DICLOFENAC SODIUM GEL 100 GM TUBE TOPICAL SCH (21:30)
[2018-02-16] MEDS: DILTIAZEM 50 MG in SODIUM CHLORIDE 0.9% 40 ML IV SCH (06:10)
[2018-02-16] MEDS: PANTOPRAZOLE 40 MG TABLET PO SCH (06:10)
[2018-02-16] MEDS: CEPHALEXIN 500 MG CAP PO SCH ×3 (08:45→23:47)
[2018-02-16] MEDS: clonazePAM 1 MG TAB PO SCH ×4 (08:45→20:34)
[2018-02-16] MEDS: HYDROcodone/APAP 10-325MG 1 EACH TAB PO SCH ×3 (08:45→20:34)
[2018-02-16] MEDS: FUROSEMIDE 40 MG TAB PO SCH ×2 (08:46→20:32)
[2018-02-16] MEDS: FLECAINIDE 50 MG TAB PO SCH ×2 (08:46→20:32)
[2018-02-16] MEDS: POTASSIUM CHLORIDE ER 20 MEQ TAB.ER PO SCH ×3 (08:46→20:32)
[2018-02-16] MEDS: METOLAZONE 2.5 MG TAB PO SCH (08:46)
[2018-02-16] MEDS: FLUoxetine HCL 20 MG CAP PO SCH (08:46)
[2018-02-16] MEDS: MAGNESIUM OXIDE 400 MG TAB PO SCH (08:46)
[2018-02-16] MEDS: ACYCLOVIR 200 MG CAP PO SCH ×2 (08:46→20:31)
[2018-02-16] MEDS: levETIRAcetam 500 MG TAB PO SCH ×2 (08:47→20:32)
[2018-02-16] MEDS: DIVALPROEX ER 500 MG TAB.ER.24H PO SCH (08:47)
[2018-02-16] MEDS: NADOLOL 20 MG TAB PO SCH (08:48)
[2018-02-16] MEDS: SODIUM CHLORIDE 0.9% 1,000 ML IV SCH ×2 (08:51→20:30)
[2018-02-16] MEDS: IBUPROFEN 600 MG TAB PO SCH ×3 (08:51→20:34)
[2018-02-16] MEDS: DICLOFENAC SODIUM GEL 100 GM TUBE TOPICAL SCH ×2 (08:59→20:31)
[2018-02-16] MEDS ORDERED: NON-FORMULARY DRUG (Omega-3 Fatty Acids/Fish Oil [Fish Oil 1,000 Mg Softgel] 1 CAP) PO SCH (09:00)
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
[2018-02-16] MEDS: RIVAROXABAN 20 MG TAB PO SCH (20:31)
[2018-02-17 07:35] LABS: Anisocytosis Slight; HCT 38.5 % (34.0-46.0); HGB 11.7 gm/dL (11.4-16.0); Hypochromasia Slight; MCH 26.1 pg (25.0-35.0); MCHC 30.4 g/dL (31.0-37.0); MCV 85.7 fL (80.0-100.0); Mean Platelet Volume 7.6; Platelet Count 383 k/uL (150-450); RDW 16.1 % (11.5-15.5); WBC 9.2 k/uL (3.8-10.6)
[2018-02-17 07:50] LABS: Albumin 3.5 g/dL (3.5-5.0); Calcium 8.9 mg/dL (8.4-10.2); Magnesium 1.7 mg/dL (1.6-2.3); Total Bilirubin 0.4 mg/dL (0.2-1.3); Total Protein 6.1 g/dL (6.3-8.2)
[2018-02-17 07:58] LABS: Potassium 2.7 mmol/L (3.5-5.1)
[2018-02-17] MEDS ORDERED: Potassium Replacement Protocol 1 EACH MISC MISCELLANE PRN (07:58)
[2018-02-17] MEDS: clonazePAM 1 MG TAB PO SCH ×4 (08:12→19:54)
[2018-02-17] MEDS: HYDROcodone/APAP 10-325MG 1 EACH TAB PO SCH ×3 (08:12→19:54)
[2018-02-17] MEDS: NADOLOL 20 MG TAB PO SCH (08:15)
[2018-02-17] MEDS: METOLAZONE 2.5 MG TAB PO SCH (08:15)
[2018-02-17] MEDS: DIVALPROEX ER 500 MG TAB.ER.24H PO SCH (08:15)
[2018-02-17] MEDS: MAGNESIUM OXIDE 400 MG TAB PO SCH (08:15)
[2018-02-17] MEDS: ACYCLOVIR 200 MG CAP PO SCH ×2 (08:15→19:52)
[2018-02-17] MEDS: DICLOFENAC SODIUM GEL 100 GM TUBE TOPICAL SCH ×2 (08:15→19:51)
[2018-02-17] MEDS: FLECAINIDE 50 MG TAB PO SCH ×2 (08:15→19:51)
[2018-02-17] MEDS: POTASSIUM CHLORIDE ER 20 MEQ TAB.ER PO SCH ×6 (08:15→19:52)
[2018-02-17] MEDS: CEPHALEXIN 500 MG CAP PO SCH ×2 (08:16→15:02)
[2018-02-17] MEDS: FLUoxetine HCL 20 MG CAP PO SCH (08:16)
[2018-02-17] MEDS: levETIRAcetam 500 MG TAB PO SCH ×2 (08:17→19:51)
[2018-02-17] MEDS: PANTOPRAZOLE 40 MG TABLET PO SCH (08:17)
[2018-02-17] MEDS: IBUPROFEN 600 MG TAB PO SCH ×3 (08:19→19:54)
[2018-02-17] MEDS: FUROSEMIDE 40 MG TAB PO SCH ×2 (09:10→19:52)
--- NOTE | 2018-02-17 12:08 | P.PN ---
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 The patient just was admitted to the hospital in October 2017 with syncope and she did have an echocardiogram at that point revealed normal LV function. This time she presented to the hospital complaining of heart racing and fluttering without any chest pain or discomfort or dizziness or lightheadedness or syncope. The patient was found to be in atrial fibrillation with RVR. The patient was converted to normal sinus mechanism on Cardizem drip then I did stop the Cardizem and drip and restart the patient back on nadolol. 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 I am going to increase the dose of nadolol 40 mg by mouth daily. Continue oral anticoagulation. She underwent an echocardiogram about 3 months ago and that revealed normal LV function. We'll continue monitor the patient for additional 24 hours. Objective - Vital Signs Vital signs: Vital Signs Temp 97.3 F L 02/17/18 11:16 Pulse 113 H 02/17/18 11:19 Resp 20 02/17/18 11:19 BP 111/62 02/17/18 11:16 Pulse Ox 92 L 02/17/18 11:16 Intake & Output 02/16/18 02/17/18 02/17/18 18:59 06:59 18:59 Intake Total 1680 960 240 Output Total 300 300 300 Balance 1380 660 -60 Weight 104.9 kg Intake: Intake, IV Titration 960 Amount Sodium Chloride 0.9% 1, 960 000 ml @ 80 mls/hr IV . [id number] RAULITO Rx#:[id number] Oral 720 960 240 Output: Urine 300 300 300 Other: Voiding Method Bedside Commode Bedside Commode Bedside Commode # Voids 1 3 1 - Constitutional General appearance: Present: no acute distress - Respiratory Respiratory: bilateral: CTA - Cardiovascular Rhythm: irregularly irregular Heart sounds: normal: S1, S2 - Labs CBC & Chem 7: 02/17/18 06:56 02/17/18 06:56 Labs: Abnormal Lab Results - Last 24 Hours (Table) 02/17/18 02/17/18 Range/Units 06:56 06:56 MCHC 30.4 L (31.0-37.0) g/dL RDW 16.1 H (11.5-15.5) % Potassium 2.7 L* (3.5-5.1) mmol/L Chloride 93 L (98-107) mmol/L Carbon Dioxide 35 H (22-30) mmol/L BUN 32 H (7-17) mg/dL Glucose 108 H (74-99) mg/dL Total Protein 6.1 L (6.3-8.2) g/dL Assessment and Plan Assessment: Assessment #1 A. fib with RVR and the patient converted to normal sinus mechanism #2 status post permanent pacemaker implantation Plan #1 increase the dose of nadolol. Continue oral anticoagulation #2 continue watching the patient for additional 24 hours #3 follow-up with the patient. Thank you for allowing us participate in her care and we'll continue following up with the patient
[2018-02-17] MEDS ORDERED: NADOLOL 20 MG TAB PO STA (12:19)
[2018-02-17] MEDS ORDERED: POTASSIUM CHLORIDE ER 20 MEQ TAB.ER PO STA (18:10)
[2018-02-17] MEDS: RIVAROXABAN 20 MG TAB PO SCH (19:51)
--- NOTE | 2018-02-17 22:16 | PN ---
PROGRESS NOTE SUBJECTIVE: 72-year-old with atrial fibrillation. Cardiology started nadolol 40 mg, started today. Anticoagulation was done. Follow, in another 24 hours possible discharge home. Temp 97.3, pulse 113, respiratory rate 18 to 20, blood pressure 111/62, O2 of 92% on room air. Cardiovascular: Irregular irregular rhythm. Lungs: Clear. GI: Soft. Hematology: Negative Homans. ASSESSMENT: Atrial fibrillation with rapid ventricular response, status post permanent pacemaker. Increase nadolol, possible discharge home next 24 to 48 hours. Replace potassium if necessary. Continue Lasix. MMODL / IJN: [id number] /
[2018-02-18] MEDS: CEPHALEXIN 500 MG CAP PO SCH ×3 (00:51→16:18)
[2018-02-18] MEDS: PANTOPRAZOLE 40 MG TABLET PO SCH (06:02)
[2018-02-18 06:18] LABS: Anisocytosis Slight; Basophils % (A) 0 %; Eosinophils # (A) 0.3 k/uL (0-0.7); Eosinophils % (A) 3 %; HCT 37.5 % (34.0-46.0); HGB 11.5 gm/dL (11.4-16.0); Hypochromasia Slight; Lymphocytes # (A) 2.7 k/uL (1.0-4.8); Lymphocytes % (A) 36 %; MCH 26.4 pg (25.0-35.0); MCHC 30.6 g/dL (31.0-37.0); MCV 86.2 fL (80.0-100.0); Mean Platelet Volume 7.5; Monocytes # (A) 0.9 k/uL (0-1.0); Monocytes % (A) 11 %; Neutrophils # (A) 3.5 k/uL (1.3-7.7); Neutrophils % (A) 47 %; Platelet Count 310 k/uL (150-450); RBC 4.35 m/uL (3.80-5.40); RDW 16.1 % (11.5-15.5); WBC 7.6 k/uL (3.8-10.6)
[2018-02-18 06:33] LABS: Albumin 3.5 g/dL (3.5-5.0); Calcium 9.2 mg/dL (8.4-10.2); Magnesium 1.7 mg/dL (1.6-2.3); Total Bilirubin 0.3 mg/dL (0.2-1.3)
[2018-02-18 06:43] LABS: Potassium 2.9 mmol/L (3.5-5.1)
[2018-02-18] MEDS: POTASSIUM CHLORIDE ER 20 MEQ TAB.ER PO SCH ×5 (06:49→16:21)
[2018-02-18] MEDS: HYDROcodone/APAP 10-325MG 1 EACH TAB PO SCH ×2 (07:57→16:19)
[2018-02-18] MEDS: clonazePAM 1 MG TAB PO SCH ×3 (07:57→16:19)
[2018-02-18] MEDS: DICLOFENAC SODIUM GEL 100 GM TUBE TOPICAL SCH (07:58)
[2018-02-18] MEDS: FUROSEMIDE 40 MG TAB PO SCH (07:59)
[2018-02-18] MEDS: DIVALPROEX ER 500 MG TAB.ER.24H PO SCH (07:59)
[2018-02-18] MEDS: FLECAINIDE 50 MG TAB PO SCH (07:59)
[2018-02-18] MEDS: MAGNESIUM OXIDE 400 MG TAB PO SCH (07:59)
[2018-02-18] MEDS: FLUoxetine HCL 20 MG CAP PO SCH (07:59)
[2018-02-18] MEDS: ACYCLOVIR 200 MG CAP PO SCH (08:00)
[2018-02-18] MEDS: METOLAZONE 2.5 MG TAB PO SCH (08:00)
[2018-02-18] MEDS: IBUPROFEN 600 MG TAB PO SCH ×2 (08:03→16:18)
[2018-02-18] MEDS: levETIRAcetam 500 MG TAB PO SCH (08:30)
[2018-02-18] MEDS ORDERED: NADOLOL 20 MG TAB PO SCH (09:00)
[2018-02-18] MEDS ORDERED: POTASSIUM CHLORIDE ER 20 MEQ TAB.ER PO ONE (11:00)
--- NOTE | 2018-02-18 14:10 | P.PN ---
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 The patient just was admitted to the hospital in October 2017 with syncope and she did have an echocardiogram at that point revealed normal LV function.This time she presented to the hospital complaining of heart racing and fluttering without any chest pain or discomfort or dizziness or lightheadedness or syncope. The patient was found to be in A. fib with RVR. She was admitted to the hospital and she was started on Cardizem drip and converted to normal sinus mechanism. Currently she has been maintaining normal sinus mechanism with heart rate in the 60s. She is also on oral anticoagulation. Overall she is feeling better. 02/18/2018 Patient seen and examined this morning, potassium 2.9, BUN 33, creatinine 1.0. Patient is on 40 mg of Lasix twice a day along with Zaroxolyn. We will discontinue the Zaroxolyn and decrease her Lasix to 40 mg daily. She continues to be in normal sinus rhythm. Once her potassium level was normalized she may be able to be discharged from our perspective. Magnesium level I.7 today. Objective - Vital Signs Vital signs: Vital Signs Temp 97.1 F L 02/18/18 11:33 Pulse 63 02/18/18 11:33 Resp 20 02/18/18 11:33 BP 100/56 02/18/18 11:33 Pulse Ox 94 L 02/18/18 11:33 Intake & Output 02/17/18 02/18/18 02/18/18 18:59 06:59 18:59 Intake Total 800 960 420 Output Total 300 0 200 Balance 500 960 220 Weight 101.3 kg Intake: Oral 800 960 420 Output: Urine 300 0 200 Other: Voiding Method Bedside Commode Bedside Commode Bedside Commode # Voids 1 1 1 - Exam PHYSICAL EXAMINATION: GENERAL: 72-year-old female in no apparent distress at the time of my examination HEENT: Head is atraumatic, normocephalic. Pupils equal, round. Sclera anicteric. Conjunctiva are clear. Mucous membranes of the mouth are moist. Neck is supple. There is no elevated jugular venous pressure.] bruit is heard. HEART EXAMINATION: Heart S1, S2 normal. No murmur or gallop heard. CHEST EXAMINATION: Lungs are clear to auscultation and precussion. No chest wall tenderness is noted on palpation or with deep breathing. ABDOMEN: Soft, nontender. Bowel sounds are heard. No organomegaly noted. EXTREMITIES: 2+ peripheral pulses with no evidence of peripheral edema and no calf tenderness noted. NEUROLOGIC patient is awake, alert and oriented ?-3. . - Labs CBC & Chem 7: 02/18/18 05:53 02/18/18 05:53 Labs: Abnormal Lab Results - Last 24 Hours (Table) 02/17/18 02/18/18 02/18/18 Range/Units 14:44 05:53 05:53 MCHC 30.6 L (31.0-37.0) g/dL RDW 16.1 H (11.5-15.5) % Potassium 3.3 L 2.9 L* (3.5-5.1) mmol/L Chloride 95 L (98-107) mmol/L Carbon Dioxide 36 H (22-30) mmol/L BUN 33 H (7-17) mg/dL Creatinine 1.05 H (0.52-1.04) mg/dL Glucose 108 H (74-99) mg/dL Total Protein 6.0 L (6.3-8.2) g/dL Assessment and Plan Plan: Assessment #1 A. fib with RVR and the patient converted to normal sinus mechanism #2 status post permanent pacemaker implantation #3 hypokalemia Plan We will discontinue the Zaroxolyn and decrease the oral dose of Lasix to 40 mg daily. We will also replace her magnesium. From cardiology's perspective, once potassium level is stable she may be able to be discharged. We will make a follow-up appointment in the office post discharge. DNP note has been reviewed, I agree with a documented findings and plan of care. Patient was seen and examined.
[2018-02-18] MEDS: MAGNESIUM SULFATE-D5W PMX 1 GM in DEXTROSE/WATER 1 100ML.BAG IVPB SCH ×2 (16:15→16:16)
[2018-02-18 16:32] VITALS: BP 126/60; PULSE 67; RESP 18; TEMP 97.3
[2018-02-19] MEDS ORDERED: FUROSEMIDE 40 MG TAB PO SCH (09:00)
[2018-02-22] MEDS ORDERED: ERGOCALCIFEROL 50,000 UNIT CAP PO SCH (12:00)
== END 2018-02-18 17:29 | disposition home or self-care (01) | DRG 310 ==
LOC: EC 15:09 → 6SEL 19:22
PROVIDERS: ADMIT Family Medicine; ATTEND Family Medicine
DX: I48.0 Paroxysmal atrial fibrillation (principal); E87.6 Hypokalemia; E78.5 Hyperlipidemia, unspecified; J44.9 Chronic obstructive pulmonary disease, unspecified; G47.33 Obstructive sleep apnea (adult) (pediatric); G89.4 Chronic pain syndrome; G40.909 Epilepsy, unspecified, not intractable, without status epilepticus; M79.7 Fibromyalgia; I50.9 Heart failure, unspecified; K21.9 Gastro-esophageal reflux disease without esophagitis; M54.9 Dorsalgia, unspecified; M19.90 Unspecified osteoarthritis, unspecified site; Z96.611 Presence of right artificial shoulder joint; Z86.711 Personal history of pulmonary embolism; Z99.81 Dependence on supplemental oxygen; Z86.19 Personal history of other infectious and parasitic diseases; Z87.440 Personal history of urinary (tract) infections; Z87.891 Personal history of nicotine dependence; Z82.49 Family history of ischemic heart disease and other diseases of the circulatory system; Z79.899 Other long term (current) drug therapy; Z79.01 Long term (current) use of anticoagulants; Z95.0 Presence of cardiac pacemaker; Z88.8 Allergy status to other drugs, medicaments and biological substances; Z88.5 Allergy status to narcotic agent; Z91.013 Allergy to seafood; Z90.81 Acquired absence of spleen; Z85.51 Personal history of malignant neoplasm of bladder
CPT/HCPCS: 36415; 71046; 80053; 82550; 82553; 83735; 84132; 84443; 84484; 85025; 85027; 85610; 85730; 93005; 94760; 96361; 96365; 99291

== ENCOUNTER 2018-03-01 16:57 | Observation (INO) | payer MEDICARE, OTHER ==
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
[2018-03-01 17:31] LABS: INR 1.2 (<1.2); Prothrombin Time 11.7 sec (9.0-12.0)
[2018-03-01 17:32] LABS: Partial Thromboplastin Time 25.9 sec (22.0-30.0)
[2018-03-01 17:42] LABS: Creatine Kinase 23 U/L (30-135)
[2018-03-01 17:44] LABS: Albumin 4.3 g/dL (3.5-5.0); Calcium 9.6 mg/dL (8.4-10.2); Magnesium 1.4 mg/dL (1.6-2.3); Total Bilirubin 0.4 mg/dL (0.2-1.3); Total Protein 7.3 g/dL (6.3-8.2)
[2018-03-01] MEDS ORDERED: ONDANSETRON 4 MG/2 ML VIAL IVP STA (17:44)
[2018-03-01 17:51] LABS: Potassium 2.7 mmol/L (3.5-5.1)
[2018-03-01] MEDS ORDERED: POTASSIUM CHLORIDE 10 MEQ in WATER FOR INJECTION 1 100ML.BAG IVPB STA (17:53)
[2018-03-01 17:55] LABS: Creatine Kinase MB 1.4 ng/mL (0.0-2.4); Troponin I <0.012 ng/mL (0.000-0.034)
[2018-03-01 17:58] LABS: HCT 39.3 % (34.0-46.0); MCH 27.5 pg (25.0-35.0); MCHC 33.1 g/dL (31.0-37.0); MCV 83.2 fL (80.0-100.0); Mean Platelet Volume 7.6; Platelet Count 388 k/uL (150-450); RBC 4.73 m/uL (3.80-5.40); RDW 15.9 % (11.5-15.5); WBC 6.4 k/uL (3.8-10.6)
[2018-03-01] MEDS: POTASSIUM CHLORIDE ER 20 MEQ TAB.ER PO STA (18:08)
[2018-03-01 18:14] LABS: Lymphocytes # (M) 2.62 k/uL (1.0-4.8); Monocytes # (M) 1.09 k/uL (0-1.0); Neutrophils # (M) 2.69 k/uL (1.3-7.7); Neutrophils % (M) 42 %; Nucleated Red Blood Cells 0 /100 WBC (0-0); Total Cells Counted 100
--- NOTE | 2018-03-01 18:14 | XR ---
EXAMINATION: XR chest 2V DATE AND TIME: 03/01/2018 6:07 PM ORDERING PROVIDER: Eliot Cordero MD CLINICAL INDICATION: difficulty breathing TECHNIQUE: PA and lateral COMPARISON: 02/15/2018 DESCRIPTION: Dual lead cardiac pacemaker and EKG leads noted. The lungs are clear. The pleural spaces are negative. The cardiac silhouette is mild-plus enlarged. The mediastinal and pleural silhouettes are unremarkable. The skeletal structures are intact without focal findings. The soft tissues are unremarkable. IMPRESSION: NO ACUTE PROCESS.
[2018-03-01] MEDS ORDERED: NITROGLYCERIN SL TABS 0.4 MG TAB SUBLINGUAL PRN (18:17)
[2018-03-01 19:44] VITALS: BMI 36.0
[2018-03-01] MEDS ORDERED: POTASSIUM CHLORIDE ER 20 MEQ TAB.ER PO STA (20:02)
[2018-03-01] MEDS: DICLOFENAC SODIUM GEL 100 GM TUBE TOPICAL SCH (20:58)
[2018-03-01] MEDS: ACYCLOVIR 200 MG CAP PO SCH (20:58)
[2018-03-01] MEDS: levETIRAcetam 500 MG TAB PO SCH (20:59)
[2018-03-01] MEDS: FLECAINIDE 50 MG TAB PO SCH (20:59)
[2018-03-01] MEDS: HYDROcodone/APAP 10-325MG 1 EACH TAB PO PRN (21:00)
[2018-03-01] MEDS: clonazePAM 1 MG TAB PO SCH (21:00)
[2018-03-01] MEDS: MAGNESIUM SULFATE-D5W PMX 1 GM in DEXTROSE/WATER 1 100ML.BAG IVPB SCH ×2 (21:00→22:16)
[2018-03-01] MEDS: RIVAROXABAN 20 MG TAB PO SCH (21:00)
[2018-03-01] MEDS: IBUPROFEN 600 MG TAB PO SCH (22:17)
[2018-03-02 00:41] LABS: Creatine Kinase 24 U/L (30-135)
[2018-03-02 00:49] LABS: Creatine Kinase MB 1.1 ng/mL (0.0-2.4); Troponin I <0.012 ng/mL (0.000-0.034)
[2018-03-02] MEDS: diphenhydrAMINE 25 MG CAP PO PRN ×2 (02:12→19:56)
[2018-03-02] MEDS: HYDROcodone/APAP 10-325MG 1 EACH TAB PO PRN ×3 (05:23→19:57)
[2018-03-02 06:22] LABS: Calcium 9.3 mg/dL (8.4-10.2); Magnesium 2.3 mg/dL (1.6-2.3)
[2018-03-02 06:52] LABS: Creatine Kinase MB 1.1 ng/mL (0.0-2.4); Troponin I 0.016 ng/mL (0.000-0.034)
[2018-03-02] MEDS ORDERED: Potassium Replacement Protocol 1 EACH MISC MISCELLANE PRN (06:53)
[2018-03-02 07:38] VITALS: RESP 16
[2018-03-02] MEDS ORDERED: NADOLOL 20 MG TAB PO SCH (09:00)
[2018-03-02] MEDS: clonazePAM 1 MG TAB PO SCH ×4 (09:11→23:16)
[2018-03-02] MEDS: levETIRAcetam 500 MG TAB PO SCH ×2 (09:11→19:56)
[2018-03-02] MEDS: IBUPROFEN 600 MG TAB PO SCH ×3 (09:11→18:14)
[2018-03-02] MEDS: FLUoxetine HCL 20 MG CAP PO SCH (09:12)
[2018-03-02] MEDS: FUROSEMIDE 40 MG TAB PO SCH (09:12)
[2018-03-02] MEDS: POTASSIUM CHLORIDE ER 20 MEQ TAB.ER PO STA (09:12)
[2018-03-02] MEDS: ASPIRIN 325 MG TAB PO SCH (09:13)
[2018-03-02] MEDS: FLECAINIDE 50 MG TAB PO SCH ×2 (09:13→19:56)
[2018-03-02] MEDS: ACYCLOVIR 200 MG CAP PO SCH ×2 (09:13→19:57)
[2018-03-02] MEDS: PANTOPRAZOLE 40 MG TABLET PO SCH (09:13)
[2018-03-02] MEDS: POTASSIUM CHLORIDE ER 20 MEQ TAB.ER PO SCH ×5 (09:14→23:16)
[2018-03-02] MEDS: DICLOFENAC SODIUM GEL 100 GM TUBE TOPICAL SCH ×2 (09:14→19:58)
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
--- NOTE | 2018-03-02 16:08 | HP ---
HISTORY AND PHYSICAL CHIEF COMPLAINT: A 72-year-old white female who has medical history of paroxysmal atrial fibrillation, permanent pacemaker comes to the hospital with rapid heart racing and fluttering and hypokalemia. Potassium has been replaced last night and today. We replace it again. She thinks maybe her low potassium is causing atrial fibrillation. Awaiting for cardiac input at this time. She is on high-dose diuretics which caused some hypokalemia. PAST MEDICAL HISTORY: Atrial fibrillation, asthma, cancer, COPD, angina, fibromyalgia, GERD, dyslipidemia, osteoarthritis, pneumonia, pulmonary embolism, seizure, sleep apnea, syncope. Anxiety, depression. PAST SURGICAL HISTORY: Bladder surgery, cardiac ablation, heart catheterization, pacemaker, rhinoplasty, splenectomy, reconstruction, right knee arthroscopy, EGD, colonoscopy, right knee replacement, dual chamber pacemaker. SOCIAL HISTORY: Former smoker. No alcohol. No illicit drugs. FAMILY HISTORY: Father myocardial infarction. Mother, osteoporosis, TB. HOME MEDICATIONS: Omeprazole, Xarelto, Corgard, Tambocor, Klonopin, Keppra, Motrin, Zovirax, Voltaren gel, K-Dur 20 mg, Prozac, Mentcle 10, Lasix 40 daily. ALLERGIES: SYMBICORT, ADVAIR, SPIRIVA, DEMEROL, DARVON, MOLDS. PHYSICAL EXAMINATION: VITAL SIGNS: Temp 98.1, pulse 67, respiratory rate 16 to 18, blood pressure is 100s to 120s over 50s to 60s. O2 94% on room air. CARDIOVASCULAR: S1, S2. LUNGS: Transmitted upper sounds. GI soft. HEMATOLOGY: Negative Homans. PSYCH: Fair mood and affect. NEUROLOGIC: Alert and orient x3. OPHTHALMOLOGIC: Pupils equal, regular round, reactive to light and accommodation. Sodium 139, potassium 3.0, BUN is 39, creatinine 0.9. Triglycerides 257, cholesterol 181, hemoglobin is 13. ASSESSMENT: 1. Paroxysmal atrial fibrillation, status post pacemaker. 2. Hypokalemia. 3. Atrial fibrillation. 4. Chronic obstructive pulmonary disease. 5. Fibromyalgia. 6. Hypothyroidism. 7. Noncompliance. PLAN: 1. Replace potassium. 2. Cardiology is consulted. 3. Possible discharge home in the next 24 hours if cleared by Cardiology. MMODL / IJN: [id number] /
[2018-03-02] MEDS: RIVAROXABAN 20 MG TAB PO SCH (19:57)
[2018-03-03] MEDS: HYDROcodone/APAP 10-325MG 1 EACH TAB PO PRN ×2 (04:09→11:46)
[2018-03-03 07:12] LABS: HCT 35.9 % (34.0-46.0); HGB 11.3 gm/dL (11.4-16.0); Hypochromasia Slight; MCH 27.2 pg (25.0-35.0); MCHC 31.5 g/dL (31.0-37.0); MCV 86.1 fL (80.0-100.0); Mean Platelet Volume 7.5; Platelet Count 386 k/uL (150-450); RBC 4.18 m/uL (3.80-5.40); RDW 15.7 % (11.5-15.5); WBC 6.1 k/uL (3.8-10.6)
[2018-03-03 07:23] LABS: Albumin 3.6 g/dL (3.5-5.0); Calcium 9.2 mg/dL (8.4-10.2); Total Protein 5.9 g/dL (6.3-8.2)
[2018-03-03 07:24] LABS: Total Bilirubin 0.3 mg/dL (0.2-1.3)
[2018-03-03] MEDS: FLUoxetine HCL 20 MG CAP PO SCH (07:59)
[2018-03-03] MEDS: levETIRAcetam 500 MG TAB PO SCH (07:59)
[2018-03-03] MEDS: ACYCLOVIR 200 MG CAP PO SCH (07:59)
[2018-03-03] MEDS: POTASSIUM CHLORIDE ER 20 MEQ TAB.ER PO SCH ×3 (08:00→09:00)
[2018-03-03] MEDS: FLECAINIDE 50 MG TAB PO SCH (08:00)
[2018-03-03] MEDS: clonazePAM 1 MG TAB PO SCH ×2 (08:00→13:10)
[2018-03-03] MEDS: ASPIRIN 325 MG TAB PO SCH (08:01)
[2018-03-03] MEDS: IBUPROFEN 600 MG TAB PO SCH ×2 (08:01→11:45)
[2018-03-03] MEDS: PANTOPRAZOLE 40 MG TABLET PO SCH (08:01)
[2018-03-03] MEDS: DICLOFENAC SODIUM GEL 100 GM TUBE TOPICAL SCH (08:02)
[2018-03-03] MEDS: FUROSEMIDE 40 MG TAB PO SCH (08:02)
[2018-03-03 08:04] LABS: Basophils # (M) 0.12 k/uL (0-0.2); Eosinophils # (M) 0.31 k/uL (0-0.7); Lymphocytes # (M) 2.81 k/uL (1.0-4.8); Monocytes # (M) 0.67 k/uL (0-1.0); Neutrophils % (M) 36 %; Nucleated Red Blood Cells 0 /100 WBC (0-0); Total Cells Counted 100
[2018-03-03] MEDS ORDERED: NADOLOL 20 MG TAB PO SCH (09:00)
[2018-03-03 11:29] VITALS: BP 104/71; PULSE 60; TEMP 97.4
== END 2018-03-03 15:09 | disposition home or self-care (01) ==
LOC: EC 16:57 → 3SUR 18:39
PROVIDERS: ADMIT Family Medicine; ATTEND Family Medicine
DX: I48.0 Paroxysmal atrial fibrillation (principal); J44.9 Chronic obstructive pulmonary disease, unspecified; J45.909 Unspecified asthma, uncomplicated; I50.9 Heart failure, unspecified; M79.7 Fibromyalgia; E78.5 Hyperlipidemia, unspecified; K21.9 Gastro-esophageal reflux disease without esophagitis; M19.90 Unspecified osteoarthritis, unspecified site; G40.909 Epilepsy, unspecified, not intractable, without status epilepticus; G47.33 Obstructive sleep apnea (adult) (pediatric); G89.4 Chronic pain syndrome; G89.29 Other chronic pain; M54.9 Dorsalgia, unspecified; I47.1 Supraventricular tachycardia; M81.0 Age-related osteoporosis without current pathological fracture; L40.9 Psoriasis, unspecified; F41.9 Anxiety disorder, unspecified; F32.9 Major depressive disorder, single episode, unspecified; E87.6 Hypokalemia; I49.8 Other specified cardiac arrhythmias; E03.9 Hypothyroidism, unspecified; Z91.19 Patient's noncompliance with other medical treatment and regimen; Z79.899 Other long term (current) drug therapy; Z79.01 Long term (current) use of anticoagulants; Z79.1 Long term (current) use of non-steroidal anti-inflammatories (NSAID); Z79.891 Long term (current) use of opiate analgesic; Z91.040 Latex allergy status; Z88.5 Allergy status to narcotic agent; Z91.013 Allergy to seafood; Z88.8 Allergy status to other drugs, medicaments and biological substances; Z91.018 Allergy to other foods; Z91.048 Other nonmedicinal substance allergy status; Z87.01 Personal history of pneumonia (recurrent); Z86.711 Personal history of pulmonary embolism; Z99.81 Dependence on supplemental oxygen; Z87.09 Personal history of other diseases of the respiratory system; Z85.51 Personal history of malignant neoplasm of bladder; Z87.440 Personal history of urinary (tract) infections; Z90.81 Acquired absence of spleen; Z95.0 Presence of cardiac pacemaker; Z87.891 Personal history of nicotine dependence; T50.2X5A Adverse effect of carbonic-anhydrase inhibitors, benzothiadiazides and other diuretics, initial encounter; Z82.49 Family history of ischemic heart disease and other diseases of the circulatory system
CPT/HCPCS: 99285 ×2; 96375 ×3; 96365; 96366; 36415; 93005; 83880; 80061; 80053 ×2; 80048; 82550 ×2; 82553 ×2; 83735 ×2; 84132 ×2; 84484 ×2; 85025 ×2; 85610; 85730; 71046; G0378 ×3; J2405; J3475; J3480

== ENCOUNTER 2018-03-24 00:43 | Inpatient (IN) | payer MEDICARE, OTHER ==
[2018-03-24 02:07] LABS: Basophils % (A) 0 %; Eosinophils # (A) 0.3 k/uL (0-0.7); Eosinophils % (A) 4 %; HCT 33.6 % (34.0-46.0); Hypochromasia Moderate; Lymphocytes # (A) 2.5 k/uL (1.0-4.8); Lymphocytes % (A) 30 %; MCH 25.6 pg (25.0-35.0); MCHC 29.8 g/dL (31.0-37.0); MCV 86.1 fL (80.0-100.0); Mean Platelet Volume 7.5; Monocytes # (A) 0.8 k/uL (0-1.0); Monocytes % (A) 9 %; Neutrophils # (A) 4.5 k/uL (1.3-7.7); Neutrophils % (A) 53 %; Platelet Count 400 k/uL (150-450); RDW 15.4 % (11.5-15.5); WBC 8.4 k/uL (3.8-10.6)
[2018-03-24 02:16] LABS: ALT 31 U/L (9-52); AST 23 U/L (14-36); Albumin 3.4 g/dL (3.5-5.0); Alkaline Phosphatase 36 U/L (38-126); Anion Gap 7 mmol/L; Blood Urea Nitrogen 16 mg/dL (7-17); Calcium 8.9 mg/dL (8.4-10.2); Carbon Dioxide 30 mmol/L (22-30); Chloride 105 mmol/L (98-107); Glucose 106 mg/dL (74-99); Potassium 5.4 mmol/L (3.5-5.1); Sodium 142 mmol/L (137-145); Total Bilirubin 0.2 mg/dL (0.2-1.3); Total Protein 5.9 g/dL (6.3-8.2)
--- NOTE | 2018-03-24 02:25 | CT ---
EXAMINATION TYPE: CT brain clarence wo con DATE OF EXAM: 03/24/2018 COMPARISON: 12/20/2017 HISTORY: fall CT DLP: 1625.50 mGycm Automated exposure control for dose reduction was used. TECHNIQUE: CT scan of the head and cervical spine are performed without contrast. FINDINGS: Ventricles and sulci appear normal for age. There is no mass effect nor midline shift. Th ere is no sign of intracranial hemorrhage. The calvarium is intact. There is some straightening of the cervical spine. There is degenerative disc space narrowing from C4 to C7 with spurring of the endplates. There is hypertrophic multilevel facet arthropathy. Skull base is intact. IMPRESSION: Negative CT scan of the brain. Spondylotic changes in the cervical spine. No fracture. No change compared to old exam.
--- NOTE | 2018-03-24 02:32 | XR ---
EXAMINATION TYPE: XR chest 1V portable DATE OF EXAM: 03/24/2018 COMPARISON: 03/01/2018 HISTORY: Fall. Chest pain. TECHNIQUE: Single frontal view of the chest is obtained. FINDINGS: Heart is enlarged. There is left axillary pacemaker with the lead tips over the right vent ricle. There is no pleural effusion. There is no heart failure. IMPRESSION: No heart failure or pulmonary consolidation. Inspiration is decreased compared to old ex am.
--- NOTE | 2018-03-24 02:33 | XR ---
EXAMINATION TYPE: XR humerus RT DATE OF EXAM: 03/24/2018 COMPARISON: NONE HISTORY: Fall. Pain. TECHNIQUE: 2 views FINDINGS: There is comminuted midshaft fracture of the right humerus. There is slight lateral angulat ion at the fracture site. There are pins at the greater tuberosity of the humerus. Elbow joint is charley ssly intact. IMPRESSION: Comminuted slightly angulated humeral shaft fracture.
[2018-03-24 05:14] LABS: Appearance,Urine Clear (Clear); Bilirubin,Urine Negative (Negative); Blood,Urine Negative (Negative); Color,Urine Light Yellow; Glucose,Urine (UA) Negative (Negative); Ketones,Urine Negative (Negative); Leukocyte Esterase,Urine Negative (Negative); Nitrite,Urine Negative (Negative); Protein,Urine Negative (Negative); Specific Gravity,Urine 1.013 (1.001-1.035); Urobilinogen,Urine <2.0 mg/dL (<2.0)
[2018-03-24] MEDS ORDERED: HYDROcodone/APAP 10-325MG 1 EACH TAB PO ONE (06:12)
[2018-03-24] MEDS ORDERED: VANCOMYCIN IV PER PHARMACY 1 EACH MISC MISCELLANE PRN (07:36)
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
[2018-03-24] MEDS ORDERED: NALOXONE 0.4 MG/ML 1 ML VIAL IV PRN (07:37)
[2018-03-24] MEDS ORDERED: ACETAMINOPHEN TAB 325 MG TAB PO PRN (07:37)
[2018-03-24] MEDS ORDERED: FUROSEMIDE 40 MG TAB PO SCH (09:00)
[2018-03-24] MEDS ORDERED: NADOLOL 20 MG TAB PO SCH (09:00)
[2018-03-24] MEDS ORDERED: HEPARIN SODIUM,PORCINE 5,000 UNIT/ML 1 ML VIAL SQ SCH (09:00)
[2018-03-24] MEDS: HYDROcodone/APAP 10-325MG 1 EACH TAB PO SCH ×3 (10:04→21:52)
[2018-03-24] MEDS: clonazePAM 1 MG TAB PO SCH ×5 (10:04→23:10)
[2018-03-24] MEDS: FLUoxetine HCL 20 MG CAP PO SCH (10:04)
[2018-03-24] MEDS: ACYCLOVIR 200 MG CAP PO SCH ×2 (10:05→20:25)
[2018-03-24] MEDS: FLECAINIDE 50 MG TAB PO SCH ×2 (10:05→20:26)
[2018-03-24] MEDS: PANTOPRAZOLE 40 MG TABLET PO SCH (10:05)
[2018-03-24] MEDS: levETIRAcetam 500 MG TAB PO SCH ×2 (10:06→20:26)
[2018-03-24] MEDS: SODIUM CHLORIDE 0.9% 1,000 ML IV SCH (10:06)
[2018-03-24] MEDS: VANCOMYCIN 2,000 MG in SODIUM CHLORIDE 0.9% 500 ML IVPB SCH (10:06)
--- NOTE | 2018-03-24 11:55 | HP ---
HISTORY AND PHYSICAL CHIEF COMPLAINT: A 72-year-old white female had 3 falls at home. She is weaker, unable ambulate, take care of her, so she is brought to the hospital. She denies any syncope. She cannot take care of herself at home and wants to go to the prison. Hit her head possibly at home. CT scans of the head are negative and neck were negative. MEDICATIONS: Please see list. ALLERGIES: See list. REVIEW OF SYSTEMS: Fourteen point review of systems besides generalized weakness and unable to ambulate are negative. PAST MEDICAL HISTORY: Atrial fibrillation, asthma, cancer, chest pain, angina, heart failure, COPD, fibromyalgia, pulmonary embolism, osteoarthritis, seizure disorder, obstructive sleep apnea, paroxysmal atrial fibrillation, bladder cancer, chronic pain syndrome, migraines, osteoporosis, anemia, bulging discs, frequent UTI, psoriasis, cardiac ablation, heart catheterization, pacemaker, bladder surgery, rhinoplasty, splenomegaly, right knee arthroscopy, permanent pacemaker, anxiety, depression. SOCIAL HISTORY: Former smoker. PAST FAMILY MEDICAL HISTORY: Father with myocardial infarction. Mother osteoporosis. PHYSICAL EXAM: Temp 97.8, pulse is 68 to 72, respirations 16 to 18, blood pressure is 106 to 117 over 50s to 60s. ENDOCRINE: BMI is over 40. PSYCH: She appears anxious and nervous. ABDOMEN: Soft. MUSCULOSKELETAL: She has right arm in a sling. She has tenderness to palpation of her humerus. GI: Distended due to obesity. BACK: Tenderness to palpation, bilateral spinal muscles cervical and lumbar. Strength is 3 to 4/5 x4 extremities. Hemoglobin is 10. Sodium 142, potassium 5.4, pulse 70, respirations 20, blood pressure 109/50, O2 is 96% on room air. Glucose 106. Total protein is 5.9. UA is negative. ASSESSMENT: 1. Cellulitis. 2. Syncope. 3. Head trauma. 4. Generalized weakness. 5. Atrial fibrillation. 6. Hypertension. 7. Fibromyalgia. 8. Coronary artery disease. Prognosis extremely poor. PT, OT and prison placement. MMODL / IJN: [id number] /
[2018-03-24] MEDS: FUROSEMIDE 40 MG TAB PO SCH (15:51)
[2018-03-24 16:52] LABS: Glucose,Whole Blood 110 mg/dL (75-99)
[2018-03-24] MEDS: HYDROcodone/APAP 5-325MG 1 EACH TAB PO PRN (19:02)
[2018-03-24] MEDS: RIVAROXABAN 20 MG TAB PO SCH (20:26)
[2018-03-25] MEDS: VANCOMYCIN 2,000 MG in SODIUM CHLORIDE 0.9% 500 ML IVPB SCH ×2 (00:48→17:24)
[2018-03-25] MEDS: clonazePAM 1 MG TAB PO SCH ×4 (05:44→20:10)
[2018-03-25] MEDS: HYDROcodone/APAP 5-325MG 1 EACH TAB PO PRN (05:45)
[2018-03-25 08:14] LABS: HCT 33.7 % (34.0-46.0); HGB 10.3 gm/dL (11.4-16.0); Hypochromasia Moderate; MCH 26.2 pg (25.0-35.0); MCHC 30.6 g/dL (31.0-37.0); MCV 85.3 fL (80.0-100.0); Mean Platelet Volume 7.6; Platelet Count 443 k/uL (150-450); RBC 3.95 m/uL (3.80-5.40); RDW 15.4 % (11.5-15.5); WBC 8.1 k/uL (3.8-10.6)
[2018-03-25 08:40] LABS: Anion Gap 6 mmol/L; Blood Urea Nitrogen 13 mg/dL (7-17); Calcium 9.4 mg/dL (8.4-10.2); Carbon Dioxide 35 mmol/L (22-30); Chloride 98 mmol/L (98-107); Glucose 99 mg/dL (74-99); Potassium 4.3 mmol/L (3.5-5.1); Sodium 139 mmol/L (137-145)
[2018-03-25] MEDS: NADOLOL 20 MG TAB PO SCH (09:37)
[2018-03-25] MEDS: ACYCLOVIR 200 MG CAP PO SCH ×2 (09:37→20:10)
[2018-03-25] MEDS: FLECAINIDE 50 MG TAB PO SCH ×2 (09:38→20:11)
[2018-03-25] MEDS: SODIUM CHLORIDE 0.9% 1,000 ML IV SCH (09:38)
[2018-03-25] MEDS: levETIRAcetam 500 MG TAB PO SCH ×2 (09:38→20:11)
[2018-03-25] MEDS: PANTOPRAZOLE 40 MG TABLET PO SCH (09:39)
[2018-03-25] MEDS: FUROSEMIDE 40 MG TAB PO SCH ×2 (09:39→15:47)
[2018-03-25] MEDS: FLUoxetine HCL 20 MG CAP PO SCH (09:40)
[2018-03-25] MEDS: HYDROcodone/APAP 10-325MG 1 EACH TAB PO SCH ×3 (09:40→20:12)
[2018-03-25] MEDS: AMMONIUM LACTATE 12% LOTION 225 GM BTL TOPICAL SCH ×2 (10:45→20:07)
[2018-03-25] MEDS: DICLOFENAC SODIUM GEL 100 GM TUBE TOPICAL SCH ×2 (10:45→20:11)
[2018-03-25] MEDS: ATORVASTATIN 20 MG TAB PO SCH (20:11)
[2018-03-25] MEDS: ARIPiprazole 2 MG TAB PO SCH (20:11)
[2018-03-25] MEDS: RIVAROXABAN 20 MG TAB PO SCH (20:12)
--- NOTE | 2018-03-25 22:17 | PN ---
PROGRESS NOTE SUBJECTIVE: [id number] white female states she cannot really walk due to her legs giving out. She cannot use her arm because of fracture. She wants an orthopedic doctor to see here. Vital signs are stable. CARDIOVASCULAR: S1, S2. LUNGS: Clear. GI: Distended. ASSESSMENT: 1. Cellulitis. 2. Generalized weakness. 3. Right humerus fracture. 4. Chronic obstructive pulmonary disease. 5. Generalized debility. Continue with current treatment. Prognosis extremely guarded. Rehab at [facility] per her wishes. MMODL / IJN: [id number] /
[2018-03-26] MEDS: clonazePAM 1 MG TAB PO SCH ×6 (00:34→23:59)
[2018-03-26] MEDS: HYDROcodone/APAP 5-325MG 1 EACH TAB PO PRN ×2 (01:41→20:25)
[2018-03-26] MEDS: VANCOMYCIN 2,000 MG in SODIUM CHLORIDE 0.9% 500 ML IVPB SCH ×2 (09:15→23:59)
[2018-03-26] MEDS: HYDROcodone/APAP 10-325MG 1 EACH TAB PO SCH ×4 (09:16→22:02)
[2018-03-26] MEDS: levETIRAcetam 500 MG TAB PO SCH ×2 (09:16→21:57)
[2018-03-26] MEDS: NADOLOL 20 MG TAB PO SCH (09:17)
[2018-03-26] MEDS: FLUoxetine HCL 20 MG CAP PO SCH (09:17)
[2018-03-26] MEDS: FLECAINIDE 50 MG TAB PO SCH ×2 (09:17→21:57)
[2018-03-26] MEDS: SODIUM CHLORIDE 0.9% 1,000 ML IV SCH (09:18)
[2018-03-26] MEDS: PANTOPRAZOLE 40 MG TABLET PO SCH (09:18)
[2018-03-26] MEDS: AMMONIUM LACTATE 12% LOTION 225 GM BTL TOPICAL SCH ×2 (09:19→21:58)
[2018-03-26] MEDS: FUROSEMIDE 40 MG TAB PO SCH ×2 (09:20→16:14)
[2018-03-26] MEDS: DICLOFENAC SODIUM GEL 100 GM TUBE TOPICAL SCH ×2 (09:20→21:59)
[2018-03-26] MEDS: ACYCLOVIR 200 MG CAP PO SCH ×2 (09:20→23:59)
[2018-03-26] MEDS: ATORVASTATIN 20 MG TAB PO SCH (21:56)
[2018-03-26] MEDS: ARIPiprazole 2 MG TAB PO SCH (21:56)
[2018-03-26] MEDS: RIVAROXABAN 20 MG TAB PO SCH (21:57)
[2018-03-27] MEDS: HYDROcodone/APAP 5-325MG 1 EACH TAB PO PRN (05:19)
--- NOTE | 2018-03-27 05:33 | PN ---
PROGRESS NOTE SUBJECTIVE: A 72-year-old white female with generalized weakness, cellulitis of the legs, COPD, coronary artery disease, right humeral fracture. Awaiting rehab placement. She is unable to ambulate, one or few steps. 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 Vital signs stable, afebrile. CARDIOVASCULAR: S1, S2. LUNGS: Clear. Extremities are red, swollen, anterior cellulitis. Await half-way placement, PT, OT recommendation. MMODL / IJN: [id number] /
[2018-03-27] MEDS: clonazePAM 1 MG TAB PO SCH ×3 (06:25→15:57)
[2018-03-27] MEDS: PANTOPRAZOLE 40 MG TABLET PO SCH (07:43)
[2018-03-27] MEDS: HYDROcodone/APAP 10-325MG 1 EACH TAB PO SCH ×2 (07:43→15:57)
[2018-03-27] MEDS: ACYCLOVIR 200 MG CAP PO SCH (07:43)
[2018-03-27] MEDS: FLECAINIDE 50 MG TAB PO SCH (07:44)
[2018-03-27] MEDS: FLUoxetine HCL 20 MG CAP PO SCH (07:44)
[2018-03-27] MEDS: FUROSEMIDE 40 MG TAB PO SCH ×2 (07:44→15:57)
[2018-03-27] MEDS: levETIRAcetam 500 MG TAB PO SCH (07:44)
[2018-03-27] MEDS: AMMONIUM LACTATE 12% LOTION 225 GM BTL TOPICAL SCH (07:45)
[2018-03-27] MEDS: NADOLOL 20 MG TAB PO SCH (07:45)
[2018-03-27] MEDS: DICLOFENAC SODIUM GEL 100 GM TUBE TOPICAL SCH (07:45)
[2018-03-27 08:43] LABS: Anion Gap 7 mmol/L; Blood Urea Nitrogen 16 mg/dL (7-17); Calcium 9.2 mg/dL (8.4-10.2); Carbon Dioxide 33 mmol/L (22-30); Chloride 100 mmol/L (98-107); Glucose 100 mg/dL (74-99); Potassium 4.5 mmol/L (3.5-5.1); Sodium 140 mmol/L (137-145)
[2018-03-27] MEDS: SODIUM CHLORIDE 0.9% 1,000 ML IV SCH (08:45)
[2018-03-27 15:22] VITALS: BP 109/66; PULSE 63; RESP 18; TEMP 97.6
[2018-03-27] MEDS: VANCOMYCIN 2,000 MG in SODIUM CHLORIDE 0.9% 500 ML IVPB SCH (17:28)
--- NOTE | 2018-03-27 17:34 | DS ---
DISCHARGE SUMMARY DISCHARGE MEDICATIONS: 1. Tylenol 650 q.6 hours p.r.n. 2. Klonopin 1 mg t.i.d. 3. Lasix 40 mg b.i.d. 4. Notus 10/325 t.i.d. 5. Corgard 40 mg daily. 6. Xarelto 20 mg daily. 7. Omeprazole 40 daily. 8. Flecainide 100 mg b.i.d. 9. Keppra 2000 mg b.i.d. 10.Motrin 600 t.i.d. 11.Zovirax 400 b.i.d. 12.Potassium chloride 20 mEq t.i.d. 13.Voltaren gel topical for arthritis pain b.i.d. 14.Prozac 60 mg daily. 15.Lac-Hydrin topically b.i.d. 16.DuoNeb b.i.d. 17.Lihue-3 fatty acids. 18.Fish oil 1 cap daily. 19.Calcium 600 b.i.d. 20.Zocor 40 mg daily. 21.Mag oxide 500 daily. 22.Abilify 2 mg daily. 23.Lasix 40 mg b.i.d. 24.Vitamin D 66778 units daily. CONDITION: Stable. PROGNOSIS: Guarded. AMBULATE: As tolerated. DIET: Regular. The patient came in the hospital with cellulitis of lower legs, generalized weakness and fatigue. She had frequent falls at home. She was given IV antibiotics at home. She will need physical therapy to for strength training. She is given IV antibiotics for cellulitis of the lower legs which improved. Generalized weakness. She has humerus fracture old on the right arm. She is wearing a sling. She will need to follow up with orthopedic surgeon who operated on her. Home medications were given. Continue for generalized weakness PT, OT and diet, exercise. [facility] the [facility]. MMODL / IJN: [id number] /
[2018-03-27] MEDS ORDERED: clonazePAM 1 MG TAB PO SCH (22:00)
== END 2018-03-27 19:20 | DRG 603 ==
LOC: EC 00:43 → 4MS4W 07:37
PROVIDERS: ADMIT Family Medicine; ATTEND Family Medicine
DX: L03.115 Cellulitis of right lower limb (principal); S42.301A Unspecified fracture of shaft of humerus, right arm, initial encounter for closed fracture; L03.116 Cellulitis of left lower limb; E78.5 Hyperlipidemia, unspecified; G40.909 Epilepsy, unspecified, not intractable, without status epilepticus; G47.30 Sleep apnea, unspecified; G89.4 Chronic pain syndrome; I11.0 Hypertensive heart disease with heart failure; I25.10 Atherosclerotic heart disease of native coronary artery without angina pectoris; I48.0 Paroxysmal atrial fibrillation; I50.9 Heart failure, unspecified; J44.9 Chronic obstructive pulmonary disease, unspecified; K21.9 Gastro-esophageal reflux disease without esophagitis; M79.7 Fibromyalgia; E66.9 Obesity, unspecified; R29.6 Repeated falls; Z96.611 Presence of right artificial shoulder joint; M81.0 Age-related osteoporosis without current pathological fracture; R53.1 Weakness; W05.0XXA Fall from non-moving wheelchair, initial encounter; R40.2252 Coma scale, best verbal response, oriented, at arrival to emergency department; R40.2362 Coma scale, best motor response, obeys commands, at arrival to emergency department; R40.2142 Coma scale, eyes open, spontaneous, at arrival to emergency department; Z79.01 Long term (current) use of anticoagulants; Z95.0 Presence of cardiac pacemaker; Z87.820 Personal history of traumatic brain injury; Z82.49 Family history of ischemic heart disease and other diseases of the circulatory system; Z82.62 Family history of osteoporosis; Z85.51 Personal history of malignant neoplasm of bladder; Z86.711 Personal history of pulmonary embolism; Z87.440 Personal history of urinary (tract) infections; Z87.891 Personal history of nicotine dependence; Z90.81 Acquired absence of spleen; Z79.899 Other long term (current) drug therapy; Z79.891 Long term (current) use of opiate analgesic; Z88.5 Allergy status to narcotic agent; Z88.8 Allergy status to other drugs, medicaments and biological substances; Z91.018 Allergy to other foods; Z68.39 Body mass index [BMI] 39.0-39.9, adult; F41.9 Anxiety disorder, unspecified; F32.9 Major depressive disorder, single episode, unspecified
CPT/HCPCS: 36415; 70450; 71045; 72125; 80048; 80053; 81003; 85025; 85027; 93005; 99285

== ENCOUNTER → 2018-07-12 | Outpatient (CLI) | payer MEDICARE, OTHER ==
--- NOTE | 2018-07-12 16:32 | ECHOF ---
Referral Reason:I10.0 HTN MEASUREMENTS -------- HEIGHT: 165.1 cm WEIGHT: 106.6 kg BP: RVIDd: 2.7 cm (< 3.3) IVSd: 1.2 cm (0.6 - 1.1) LVIDd: 5.0 cm (3.9 - 5.3) LVPWd: 1.3 cm (0.6 - 1.1) IVSs: 1.7 cm LVIDs: 3.8 cm LVPWs: 1.3 cm LA Diam: 3.6 cm (2.7 - 3.8) LAESV Index (A-L): 36.46 ml/m Ao Diam: 3.4 cm (2.0 - 3.7) AV Cusp: 1.8 cm (1.5 - 2.6) LA Diam: 3.4 cm (2.7 - 3.8) MV EXCURSION: 13.883 mm (> 18.000) MV EF SLOPE: 62 mm/s (70 - 150) EPSS: 0.8 cm MV E Govind: 0.54 m/s MV DecT: 332 ms MV A Govind: 0.90 m/s MV E/A Ratio: 0.60 RAP: 5.00 mmHg RVSP: 40.13 mmHg FINDINGS -------- Sinus rhythm. Pacerwire seen in RV and RA. This was a technically adequate study. The left ventricular size is normal. There is mild concentric left ventricular hypertrophy. Overa ll left ventricular systolic function is mildly impaired with, an EF between 45 - 50 %. The right ventricle is normal in size. The left atrium is mildly dilated. LA is moderately dilated 34-39 ml/m2 The right atrial size is normal. The aortic valve is trileaflet, and appears structurally normal. No aortic stenosis or regurgitation. Mild mitral annular calcification present. Mild mitral regurgitation is present. Mild tricuspid regurgitation present. There is mild pulmonary hypertension. The right ventricular systolic pressure, as measured by Doppler, is 40.13mmHg. There is no pulmonic regurgitation present. The aortic root size is normal. There is no pericardial effusion. CONCLUSIONS -------- 1. Sinus rhythm. 2. Pacerwire seen in RV and RA. 3. This was a technically adequate study. 4. The left ventricular size is normal. 5. There is mild concentric left ventricular hypertrophy. 6. Overall left ventricular systolic function is mildly impaired with, an EF between 45 - 50 %. 7. The left atrium is mildly dilated. 8. LA is moderately dilated 34-39 ml/m2 9. The aortic valve is trileaflet, and appears structurally normal. No aortic stenosis or regurgitati on. 10. Mild mitral annular calcification present. 11. Mild mitral regurgitation is present. 12. Mild tricuspid regurgitation present. 13. There is mild pulmonary hypertension. 14. There is no pulmonic regurgitation present. 15. The aortic root size is normal. 16. There is no pericardial effusion. CHEMISTRY TECHNICIAN: Kristy Mancia RDCS
== END ==
LOC: RADECHMAIN 08:10
PROVIDERS: ATTEND Family Medicine
DX: I11.9 Hypertensive heart disease without heart failure (principal); I08.1 Rheumatic disorders of both mitral and tricuspid valves; I27.20 Pulmonary hypertension, unspecified
CPT/HCPCS: 93306

== ENCOUNTER → 2018-08-22 | Outpatient (CLI) | payer MEDICARE, OTHER ==
--- NOTE | 2018-08-22 12:28 | XR ---
EXAMINATION TYPE: XR shoulder complete RT DATE OF EXAM: 08/22/2018 CLINICAL HISTORY: Status post right humeral surgery 7 months ago for humeral fracture. TECHNIQUE: Three views of the right shoulder are obtained. COMPARISON: None. FINDINGS: There is no acute fracture/dislocation evident in the right shoulder. There is periosteal reaction surrounding the surgically fixated healing right humeral mid diaphyseal fracture. Overall al ignment is well maintained. Transcortical screws nearly abut the lateral cortical surface of the jomar dorene. There is a small marginal osteophyte from the inferior right humeral head in the axillary recess . There is acromioclavicular widening in the joint space, possibly postsurgical as the distal clavicl e appears sharply demarcated. Visualized portions of the right lung are unremarkable. Overall there i s generalized osseous demineralization. IMPRESSION: 1. No acute fracture of the right shoulder or dislocation. 2. Surgically fixated healing right mid diaphyseal humeral fracture. 3. Mild right glenohumeral arthropathy. 4. Acromioclavicular joint space widening, possibly postsurgical.
== END | disposition home or self-care (01) ==
LOC: RADXRMAIN 10:54
PROVIDERS: ATTEND Family Medicine
DX: S49.00 Unspecified physeal fracture of upper end of humerus (principal); M19.011 Primary osteoarthritis, right shoulder; M25.811 Other specified joint disorders, right shoulder

== ENCOUNTER 2019-02-17 16:51 | Inpatient (IN) | payer MEDICARE, OTHER ==
[2019-02-17] MEDS ORDERED: SODIUM CHLORIDE 0.9% 500 ML 500 ML IV STA (17:18)
[2019-02-17] MEDS ORDERED: HYDROmorphone 0.5 MG/0.5 ML SYRINGE IVP STA ×2 (17:18→18:43)
[2019-02-17 17:40] LABS: Anisocytosis Slight; Basophils % (A) 0 %; Eosinophils # (A) 0.1 k/uL (0-0.7); Eosinophils % (A) 1 %; HCT 39.4 % (34.0-46.0); HGB 12.2 gm/dL (11.4-16.0); Lymphocytes # (A) 2.4 k/uL (1.0-4.8); Lymphocytes % (A) 20 %; MCH 26.2 pg (25.0-35.0); MCHC 30.9 g/dL (31.0-37.0); Mean Platelet Volume 7.7; Monocytes # (A) 0.5 k/uL (0-1.0); Monocytes % (A) 4 %; Neutrophils # (A) 9.1 k/uL (1.3-7.7); Neutrophils % (A) 74 %; Platelet Count 445 k/uL (150-450); RBC 4.64 m/uL (3.80-5.40); RDW 16.7 % (11.5-15.5); WBC 12.4 k/uL (3.8-10.6)
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
[2019-02-17 17:48] LABS: INR 0.9 (<1.2); Prothrombin Time 9.8 sec (9.0-12.0)
[2019-02-17 17:55] LABS: ALT 31 U/L (9-52); AST 22 U/L (14-36); African American GFR (CKD) >90 (>60 ml/min/1.73 sqM); Albumin 4.2 g/dL (3.5-5.0); Alkaline Phosphatase 46 U/L (38-126); Anion Gap 10 mmol/L; Blood Urea Nitrogen 22 mg/dL (7-17); Calcium 9.7 mg/dL (8.4-10.2); Carbon Dioxide 30 mmol/L (22-30); Chloride 100 mmol/L (98-107); Glucose 120 mg/dL (74-99); Potassium 5.4 mmol/L (3.5-5.1); Sodium 140 mmol/L (137-145); Total Bilirubin 0.4 mg/dL (0.2-1.3); Total Protein 7.1 g/dL (6.3-8.2)
--- NOTE | 2019-02-17 18:12 | CT ---
EXAMINATION TYPE: CT brain clarence wo con DATE OF EXAM: 02/17/2019 COMPARISON: 03/24/2018 HISTORY: Fall. Left orbital injury. CT DLP: 1158 mGycm Automated exposure control for dose reduction was used. TECHNIQUE: CT scan of the head and cervical spine are performed without contrast. FINDINGS: Ventricles have normal size. There is no mass effect nor midline shift. There is no sign of intracranial hemorrhage. There is left-sided periorbital hematoma. The calvarium is intact. There is significant density in the left maxillary sinus. There is some straightening of the cervical spine. There is degenerative disc space narrowing at C4-5 and C5-6 and C6-7 with spurring of the endplates. Facet joints are intact. The skull base is intact. I see no evidence of a fracture. There is no evidence of cervical paraspinal mass. I see no focal nava ne destruction. IMPRESSION: Left periorbital hematoma. No acute intracranial abnormality. Spondylotic changes in the cervical spine. No fracture. No significant change of the brain and cervical spine compared to old exam.
--- NOTE | 2019-02-17 18:14 | CT ---
EXAMINATION TYPE: CT facial bones wo con DATE OF EXAM: 02/17/2019 COMPARISON: None HISTORY: Fall. Left orbital injury. CT DLP: 1158 mGycm Automated exposure control for dose reduction was used. TECHNIQUE: CT scan of the sinuses is performed without contrast, axial images are obtained, coronal r eformatted images are also reviewed. FINDINGS: There is left-sided periorbital significant soft tissue swelling consistent with periorbita l hematoma. The globes are symmetric. There is some fat stranding posterior to the left lobe. There i s defect in the floor of the left bony orbit consistent with a blowout fracture. There is a few lorenzo meter depression of the fragment. There is increased density at the roof of the left maxillary sinus consistent with hemorrhage and debris. There is previous osteotomy of the medial nava of the maxilla ry sinuses. The mandible appears intact. Zygomatic arches are intact. The nasal bone is intact. IMPRESSION: There is blowout fracture of the floor of the left bony orbit. There is retro-orbital lef t side density consistent with acute hemorrhage and bruising. Large left side periorbital hematoma.
[2019-02-17] MEDS ORDERED: LIDOCAINE 1%-EPI 1:100,000 20 ML VIAL SQ STA (18:33)
[2019-02-17] MEDS ORDERED: PROPARACAINE 0.5% OPHTH DROPS 15 ML BTL BOTH EYES STA (18:43)
[2019-02-17] MEDS ORDERED: PROPARACAINE 0.5% OPHTH DROPS 15 ML BTL ONE (18:44)
[2019-02-17] MEDS ORDERED: TIMOLOL 0.5% OPHTH DROPS 5 ML BTL LEFT EYE STA (19:11)
[2019-02-17] MEDS: acetaZOLAMIDE 250 MG TAB PO SCH (19:54)
--- NOTE | 2019-02-17 20:30 | P.CON ---
Consult Note - . Consult date: 02/17/19 Assessment/Plan:: 73 y/o female who without LOC fell and hit left side of face. Seen in ER and suspect there is a retrobulbar hemorrhage with elevated IOP on the left. Vision was more difficult on the left side as well. She denies any previous surgeries or specific treatments ongoing for the eyes. Her last eye exam was about year ago. PE: VA w/o correction 20/40 OD; 20/40 OS IOP: iCare 15 mm Hg OD; 53 mm Hg OS Ext: marked swelling and bruising of the eyelids on the left. There is significant tenderness to the eyelids on the left as well. EOM: limited on the left, normal OD and is aware of double vision Pupils: - APD conjunctiva: subconjunctival hemorrhage on left and moderate chemosis AC: D&Q OU Iris: normal OU Lens: early cataract not dilated: Vit: clear OU Optic nerve: S/F/P macula: quiet vasculature: normal A: traumatic retrobulbar hemorrhage due to inferior blow out fracture as noted on the CT P: 1) lateral canthotomy left eye, performed, IOP repeated after procedure and starting on glaucoma treatment 24 mm Hg OS 2) begin Bactrim DS twice daily for the next 7 days 3) will obtain previous prescription and expedite a new pair of glasses. 4) will be admitted tonight to monitor. 5) continue glaucoma treatment and will follow up tomorrow for dilated eye exam to confirm retina and optic nerve are not injured.
[2019-02-17] MEDS ORDERED: acetaZOLAMIDE 250 MG TAB PO SCH (21:00)
--- NOTE | 2019-02-17 21:23 | XR ---
EXAMINATION TYPE: XR lumbar spine 2 or 3V DATE OF EXAM: 02/17/2019 COMPARISON: 01/22/2017 HISTORY: Pain TECHNIQUE: 3 views. FINDINGS: There is degenerative disc space narrowing throughout the lumbar spine. There is no compression frac ture. There is slight upper lumbar levoscoliosis. Sacroiliac joints are intact. IMPRESSION: Spondylotic changes. No fracture. No change compared to old exam.
--- NOTE | 2019-02-17 21:24 | XR ---
EXAMINATION TYPE: XR knee complete RT DATE OF EXAM: 02/17/2019 COMPARISON: None HISTORY: Pain TECHNIQUE: 3 views FINDINGS: There is moderate narrowing medial joint space. There is spurring of the femoral and tibial condyles. There is spurring of the patella. IMPRESSION: Moderate osteoarthritis mainly in the medial joint space. No fracture.
--- NOTE | 2019-02-17 21:25 | XR ---
EXAMINATION TYPE: XR chest 2V DATE OF EXAM: 02/17/2019 COMPARISON: 03/24/2018 HISTORY: Syncope TECHNIQUE: Frontal and lateral views of the chest are obtained. FINDINGS: There is no heart failure nor confluent pneumonic infiltrate. There is left axillary pacem jesus. There are chest leads. Costophrenic angles are clear. Bony thorax is intact. IMPRESSION: No active cardiopulmonary disease. Subsegmental atelectasis left lung base is improved c ompared to last exam.
[2019-02-17] MEDS ORDERED: MORPHINE SULFATE 4 MG/ML SYRINGE IVP STA (21:37)
[2019-02-17] MEDS ORDERED: oxyCODONE-APAP 5-325MG 1 EACH TAB PO PRN (21:37)
[2019-02-17] MEDS ORDERED: ACETAMINOPHEN TAB 325 MG TAB PO PRN (21:37)
[2019-02-17] MEDS ORDERED: ONDANSETRON 4 MG/2 ML VIAL IVP PRN (21:37)
[2019-02-17] MEDS ORDERED: NALOXONE 0.4 MG/ML 1 ML VIAL IV PRN (21:37)
[2019-02-18 00:20] LABS: Appearance,Urine Clear (Clear); Bacteria,Urine Rare /hpf; Bilirubin,Urine Negative (Negative); Blood,Urine Negative (Negative); Color,Urine Yellow; Glucose,Urine (UA) Negative (Negative); Hyaline Casts,Urine 1 /lpf (0-2); Ketones,Urine Negative (Negative); Leukocyte Esterase,Urine Small (Negative); Mucus,Urine Rare /hpf; Nitrite,Urine Positive (Negative); Protein,Urine Trace (Negative); RBC,Urine 1 /hpf (0-5); Specific Gravity,Urine 1.015 (1.001-1.035); Squamous Epithelial Cell,Urine <1 /hpf (0-4); Transitional Epi Cells,Urine <1 /hpf (0-1); Urobilinogen,Urine <2.0 mg/dL (<2.0); WBC,Urine 15 /hpf (0-5)
[2019-02-18] MEDS: MORPHINE SULFATE 4 MG/ML SYRINGE IV PRN ×5 (01:41→20:45)
[2019-02-18] MEDS: clonazePAM 1 MG TAB PO SCH ×5 (03:06→22:47)
[2019-02-18] MEDS: NEOMYCIN-POLYMYXIN-DEXAMETH OINT 3.5 GM TUBE LEFT EYE SCH ×6 (03:11→22:48)
[2019-02-18] MEDS: SODIUM CHLORIDE 0.9% 1,000 ML IV SCH ×2 (03:13→21:31)
[2019-02-18] MEDS: oxyCODONE-APAP 7.5-325MG 1 EACH TAB PO SCH ×4 (03:13→22:47)
[2019-02-18] MEDS: IPRATROPIUM 0.5 MG/2.5 ML NEBU INHALATION SCH ×2 (07:24→11:19)
[2019-02-18] MEDS: FLUTICASONE INHALATION SCH ×2 (07:24→21:07)
[2019-02-18] MEDS: IPRATROPIUM-ALBUTEROL 3 ML NEB INHALATION PRN ×2 (07:24→11:19)
[2019-02-18] MEDS: SALMETEROL INHALATION SCH ×2 (07:24→21:07)
[2019-02-18] MEDS: FLUoxetine HCL 20 MG CAP PO SCH (08:36)
[2019-02-18] MEDS: ACYCLOVIR 200 MG CAP PO SCH ×2 (08:36→20:48)
[2019-02-18] MEDS: PANTOPRAZOLE 40 MG TABLET PO SCH (08:37)
[2019-02-18] MEDS: levETIRAcetam 500 MG TAB PO SCH ×2 (08:37→20:49)
[2019-02-18] MEDS: acetaZOLAMIDE 250 MG TAB PO SCH ×2 (08:37→21:04)
[2019-02-18] MEDS: FUROSEMIDE 40 MG TAB PO SCH ×2 (08:37→16:45)
[2019-02-18] MEDS: ARIPiprazole 2 MG TAB PO SCH (08:38)
[2019-02-18] MEDS: FLECAINIDE 50 MG TAB PO SCH ×2 (08:38→20:50)
[2019-02-18] MEDS ORDERED: PROPARACAINE 0.5% OPHTH DROPS 15 ML BTL BOTH EYES STA (08:44)
[2019-02-18] MEDS ORDERED: TROPICAMIDE 1% OPHTH DROPS 2 ML BTL BOTH EYES ONE (08:44)
[2019-02-18] MEDS ORDERED: PROPARACAINE 0.5% OPHTH DROPS 15 ML BTL LEFT EYE STA (08:44)
--- NOTE | 2019-02-18 09:12 | PCN ---
PROCEDURE NOTE DATE OF PROCEDURE: 02/17/2019. PROCEDURE: Left lateral canthotomy with cantholysis, left eye. PREOPERATIVE DIAGNOSIS: Traumatic retrobulbar hemorrhage and increased intraocular pressure. POSTOPERATIVE DIAGNOSIS: Traumatic retrobulbar hemorrhage and increased intraocular pressure. SURGEON: Dr. Galo Krishna. ANESTHESIA: Regional block. ESTIMATED BLOOD LOSS: 15 mL. SPECIMEN TAKEN: None. NARRATIVE: After obtaining a verbal consent from this lady who presented in the emergency room following a fall which led to a traumatic retrobulbar hemorrhage of the left eye with a blowout fracture of the inferior orbit, 2% lidocaine with epinephrine was injected in a modified Van Lint type procedure to the upper and lower lids along with a direct along the lateral ramus of the inferior orbital rim and lateral canthal area. Once allowing for sufficient anesthesia, direct incision of the lateral canthus right down to zygomatic bone was accomplished with little difficulty. With the finger slipped down inside the lateral canthal opening, the inferior lateral canthal tendon was identified and again one more direct incision of the lateral canthus was accomplished with single snip of the scissors. A small amount of blood was immediately released as well as continued serosanguineous drainage from the retrobulbar space of the left eye. Some gentle retropulsion on the globe further was able to express more of the bloody fluid from the retrobulbar space. Immediately following the procedure, the patient was able to appreciate some decrease in retrobulbar discomfort and approximately half an hour following the procedure and with use of 0.5% timolol q.5 minutes x3, the intraocular pressure was re-accomplished and the eye pressure of the left eye had dropped from approximately 53 mmHg down to 24 mmHg. The lateral canthal area was dressed with Maxitrol ointment and covered with gauze. There were no complications from the procedure. She tolerated the procedure well. MMODL / IJN: [id number] / MTDD
[2019-02-18] MEDS: TIMOLOL 0.5% OPHTH DROPS 5 ML BTL LEFT EYE SCH ×2 (09:29→20:49)
[2019-02-18 09:35] LABS: Anisocytosis Slight; HCT 36.7 % (34.0-46.0); Hypochromasia Marked; MCH 26.3 pg (25.0-35.0); MCHC 29.8 g/dL (31.0-37.0); MCV 88.3 fL (80.0-100.0); Mean Platelet Volume 7.7; Platelet Count 393 k/uL (150-450); RBC 4.16 m/uL (3.80-5.40); RDW 16.6 % (11.5-15.5); WBC 13.6 k/uL (3.8-10.6)
[2019-02-18 09:45] LABS: Calcium 9.1 mg/dL (8.4-10.2)
[2019-02-18] MEDS ORDERED: NON-FORMULARY DRUG (Omeprazole [Omeprazole] 40 MG) PO SCH (11:30)
[2019-02-18] MEDS ORDERED: IPRATROPIUM-ALBUTEROL 3 ML NEB INHALATION PRN (11:46)
[2019-02-18] MEDS ORDERED: PHENYLEPHRINE 2.5% OPHTH DRP 2ML BOTH EYES STA (12:19)
--- NOTE | 2019-02-18 13:26 | P.CON ---
Consult Note - . Consult date: 02/18/19 Assessment/Plan:: 73 y/o female post traumatic inferior orbital fracture and retrobulbar hemorrhage with lateral canthotomy and cantholysis on the left. Today denies much discomfort from the eye, but still compolains of 9 /10 pain in brow area. Still having some diplopia and is able to open the eyelid a bit more. There is no lack of sensation in the lower eyelid on the left. EXT: marked left side bruising with tenderness of the brow, moderate upper & lower eyelid swelling. lateral canthal wound - fairly dry, some superficial abrasions on the lateral aspect of the cheek. Va: w/o correction 20/40 OD; 20/30-2 OS. IOP: 10 mm Hg OD; 18 mm Hg OS @ 1200 Pupil: -APD EOM: restricted OS, otherwise increased better than last evening Conjunctiva: white & quiet OD, moderate chemosis and erythema OS K: clear OU AC: D&Q OU Iris: normal OU Lens: early NS & cortical cataract OU Dilated with 2.5 wanda & 1% tropicamide OU @ 1205 Vit: normal Optic nerve S/F/P C: 0.25 OU Mac: +FLR with normal appearance Vasc: 0.70 OU Peripheral: intact 360 OU, without any commotio retinae. A: 1) increased IOP following traumatic retrobulbar hemorrhage OS 2) inferior blow out without entrapment, normal neurological sensations of lower lid and cheek area 3) lateral canthal laceration, dry and clean P: 1) will continue to follow 2) continue with timolol 0.5% twice daily in left eye 3) lateral canthal repair next week. 4) continue to use Maxitrol ointment several times daily over the lateral canthus 5) await ENT input.
[2019-02-18] MEDS: IPRATROPIUM-ALBUTEROL 3 ML NEB INHALATION SCH ×3 (13:41→21:07)
--- NOTE | 2019-02-18 14:17 | XR ---
EXAMINATION TYPE: XR Hip LT and AP Pelvis DATE OF EXAM: 02/18/2019 COMPARISON: NONE HISTORY: Pain TECHNIQUE: A single AP view of the pelvis is obtained. Two views of the left hip are obtained. FINDINGS: There is no acute fracture/dislocation evident in the pelvis. The hip and sacroiliac join ts appear symmetric and unremarkable. The overlying soft tissue appears unremarkable. Concentric narrowing of the hip joint bilaterally with hypertrophic change of the acetabulum. Degener ative change lower lumbar spine IMPRESSION: There is no acute fracture or dislocation in the pelvis or left hip. Bilateral arthropat hy correlate for femoral acetabular impingement.
[2019-02-18] MEDS: NADOLOL 20 MG TAB PO SCH (14:31)
[2019-02-18] MEDS: METOLAZONE 2.5 MG TAB PO SCH (14:32)
[2019-02-18] MEDS: ATORVASTATIN 20 MG TAB PO SCH (20:48)
[2019-02-18] MEDS: AMMONIUM LACTATE 12% LOTION 225 GM BTL TOPICAL SCH (20:48)
[2019-02-18] MEDS: RIVAROXABAN 20 MG TAB PO SCH (20:49)
[2019-02-19] MEDS: MORPHINE SULFATE 4 MG/ML SYRINGE IV PRN ×2 (01:02→05:45)
[2019-02-19] MEDS: levETIRAcetam 500 MG TAB PO SCH ×2 (08:24→20:14)
[2019-02-19] MEDS: clonazePAM 1 MG TAB PO SCH ×2 (08:24→22:42)
[2019-02-19] MEDS: FLUoxetine HCL 20 MG CAP PO SCH (08:27)
[2019-02-19] MEDS: FLECAINIDE 50 MG TAB PO SCH ×2 (08:27→20:14)
[2019-02-19] MEDS: FUROSEMIDE 40 MG TAB PO SCH ×2 (08:27→16:31)
[2019-02-19] MEDS: PANTOPRAZOLE 40 MG TABLET PO SCH (08:27)
[2019-02-19] MEDS: ACYCLOVIR 200 MG CAP PO SCH ×2 (08:27→20:13)
[2019-02-19] MEDS: acetaZOLAMIDE 250 MG TAB PO SCH ×2 (08:28→20:13)
[2019-02-19] MEDS: NADOLOL 20 MG TAB PO SCH (08:28)
[2019-02-19] MEDS: oxyCODONE-APAP 7.5-325MG 1 EACH TAB PO SCH ×2 (08:29→16:30)
[2019-02-19] MEDS: METOLAZONE 2.5 MG TAB PO SCH (08:29)
[2019-02-19] MEDS: ARIPiprazole 2 MG TAB PO SCH (08:29)
[2019-02-19] MEDS: NEOMYCIN-POLYMYXIN-DEXAMETH OINT 3.5 GM TUBE LEFT EYE SCH ×4 (08:30→22:42)
[2019-02-19] MEDS: TIMOLOL 0.5% OPHTH DROPS 5 ML BTL LEFT EYE SCH ×2 (08:30→20:15)
[2019-02-19] MEDS: AMMONIUM LACTATE 12% LOTION 225 GM BTL TOPICAL SCH ×2 (08:31→20:13)
[2019-02-19] MEDS: IPRATROPIUM-ALBUTEROL 3 ML NEB INHALATION SCH ×4 (09:11→21:15)
[2019-02-19] MEDS: SALMETEROL INHALATION SCH ×2 (09:12→21:14)
[2019-02-19] MEDS: FLUTICASONE INHALATION SCH ×2 (09:12→21:14)
[2019-02-19] MEDS ORDERED: clonazePAM 1 MG TAB PO STA (09:39)
[2019-02-19 11:06] LABS: Glucose,Whole Blood 127 mg/dL (75-99)
[2019-02-19] MEDS ORDERED: CYCLOBENZAPRINE 5 MG TAB PO PRN (12:23)
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
--- NOTE | 2019-02-19 17:39 | P.PN ---
Subjective Progress Note Date: 02/19/19 This is a 73-year-old female with multiple medical issues admitted to the ER status post fall. Patient was at cardiology's office for pacemaker check-states no change in medications with the exception of potassium, as her potassium was high. Patient was ambulating with walker,reports she probably tripped on her oxygen tubing, fell, landing on left side.Denies syncope, no fecal or urine incontinence. Facial bones CT reported the left fracture of the floor of the left bony orbit with retro-orbital left-sided density consistent with acute hemorrhage and bruising, large left-sided periorbital hematoma. CT brain/spine reporting left periorbital hematoma, no acute intracranial abnormality, no fracture with no significant change of the brain and C-spine compared to prior exam. Chest x-ray reporting subsegmental atelectasis left lung base improved compared to prior exam. EKG pending. Right knee reporting moderate osteoarthritis, no fracture. Lumbar spine reporting no fracture, no change compared to prior exam. Evaluated by a Dr. Galo Krishna, psychiatric therapist, underwent left lateral canthotomy with cantholysis of left eye secondary to traumatic retrobulbar hemorrhage and increased intraocular pressure. Decrease intraocular pressure post procedure from 53 to 24. Timolol drops initiated C omplains of left sided facial/brow pain, back pain, and left hip pain. Reports diplopia of affected eye and able to open the eyelid minimally. Headache earlier, subsided. Denies chest pain, palpitations or increased shortness of breath. VSS, maintaining O2 sats in the 90s on 4 L nasal cannula, patient's baseline. Mild leukocytosis. 02/19/2019 left hip/pelvis x-ray reporting no acute fracture or dislocation. Bilateral arthropathy, possible femoral acetabular impingement. Reports back pain, less eye brow/ facial pain. Eye edema improving.VSS. Afebrile. ENT consult in place with recommendations pending. Evaluated by physical therapy with subacute rehab recommended. Denies chest pain, palpitations or shortness of breath. Objective - Vital Signs Vital signs: Vital Signs Temp 98.5 F 02/19/19 12:28 Pulse 66 02/19/19 16:43 Resp 17 02/19/19 15:45 BP 120/77 02/19/19 12:28 Pulse Ox 97 02/19/19 09:15 Intake & Output 02/18/19 02/19/19 02/19/19 18:59 06:59 18:59 Intake Total 160 1850 650 Balance 160 1850 650 Weight 107.5 kg Intake: Intake, IV Titration 160 240 Amount Sodium Chloride 0.9% 1, 160 240 000 ml @ 20 mls/hr IV . Q24H [facility] Rx#:[id number] Oral 1610 650 Other: Voiding Method Bedside Commode Bedside Commode Bedside Commode # Voids 1 2 - Exam VITAL SIGNS: As above GENERAL: Sitting up in chair, no acute distress HEENT: Left-sided facial bruising/tenderness/ less edema of brow, upper & lower eyelid NECK: No JVD. No thyroid enlargement. No LNs CARDIOVASCULAR: S1, S2 regular. No murmur RESPIRATION: Breath sounds diminished in the bases. No rhonchi or crackles. No bronchial breathing. ABDOMEN: Soft, nontender . No guarding. no masses palpable. Bowel sounds heard. LEGS: No edema. no swelling PSYCHIATRY: Alert and oriented X3, mood and affect normal. NERVOUS SYSTEM: Cranial N 2-12 grossly normal. Moves all 4 limbs. Diffuse weakness No focal deficits. Strength and sensation grossly intact.. Skin: no lesions, no rash Lymphatic system. No LN neck axilla or groin. - Labs CBC & Chem 7: 02/18/19 09:15 02/18/19 09:15 Labs: Abnormal Lab Results - Last 24 Hours (Table) 02/19/19 Range/Units 10:59 POC Glucose (mg/dL) 127 H (75-99) mg/dL Assessment and Plan Assessment: -Traumatic retrobulbar hemorrhage with increased intraocular pressure, S/P Left lateral canthotomy with cantholysis -Left Orbital floor fracture ( blow out) -S/P fall in a patient with history of falls -Possible left femoral acetabular impingement, workup in progress. -Chronic paroximal atrial fibrillation -CAD, History of SVT, atrial tachycardia, cardiac ablation -Pacemaker secondary to sick sinus syndrome -Chronic asthma, stable -Gait dysfunction, uses walker -CHF,type unknown -Gastroesophageal reflux disease -COPD, stable -Seizure disorder -Sleep apnea uses CPAP/BiPAP at home -History of syncope -History of Bladder Cancer -OA -Chronic Anemia -History of splenectomy -Anxiety, depression -Chronic hypoxic respiratory failure, 4 liters at home -History of nicotine dependence -Hypertension -Obesity, BMI 38.1 -Chronic back pain Plan: Continue on current medication regime ,Timolol gtts, Maxitrol melina.,monitoring and symptomatic treatment. ENT consult in place, recommendations pending. Pain management with Flexeril added to med regime. Pacer interrogation ordered. Orthopedic surgery consultation regarding possible femoral acetabular impingement. PT/OT. Follow closely with ophthalmology. Discharge planning in progress for subacute rehab., pre- auth. pending. The impression and plan of care has been dictated as directed. : I performed a history and examination of this patient, discussed the same with the dictator. I agree with the dictator's note ,documented as a scribe. Any additional findings or plans will be noted.
[2019-02-19] MEDS: ATORVASTATIN 20 MG TAB PO SCH (20:13)
[2019-02-19] MEDS: RIVAROXABAN 20 MG TAB PO SCH (20:14)
[2019-02-19] MEDS: SENNOSIDES-DOCUSATE SODIUM 1 EACH TAB PO SCH (20:14)
[2019-02-19] MEDS: DOCUSATE 100 MG CAP PO SCH (20:14)
[2019-02-19] MEDS: oxyCODONE-APAP 7.5-325MG 1 EACH TAB PO PRN (20:23)
--- NOTE | 2019-02-19 23:16 | P.CON ---
Consult Note - . Consult date: 02/19/19 Assessment/Plan:: 73 y/o female post traumatic retrobulbar hemorrhage and lateral canthotomy denies any improvement in vision and feels today the left eye is seeing more poorly. she continue to receive the timolol in te left eye twice daily and the ointment to the lateral canthal area. PE not dilated: EXT: significant bruising of the left orbital area with moderate reduction in localized swelling of the area. Va w/o correction: 20/40 OD, 20/30 -3 OS IOP: tonopen 09 mm Hg OD & 10 mm Hg OS @ 1530 pupils: -APD EOM: increased movement especially on lateral gaze, no entrapment inferior OS Cornea: clear OU AC: D&Q Posterior pole: optic nerve S/F/P , quiet maculae A: 1) traumatic retrobulbar hemorrhage with lateral canthotomy improving 2) blow out fracture OS without entrapment P: 1) continue with timolol in left eye twice daily, will withdraw soon 2) continue with topical Maxitrol ointment over lateral canthus pending repair
[2019-02-20] MEDS: oxyCODONE-APAP 7.5-325MG 1 EACH TAB PO PRN ×5 (01:53→21:45)
[2019-02-20 08:00] LABS: Basophils % (A) 0 %; Eosinophils # (A) 0.1 k/uL (0-0.7); Eosinophils % (A) 1 %; HCT 41.7 % (34.0-46.0); HGB 13.5 gm/dL (11.4-16.0); Hypochromasia Slight; Lymphocytes # (A) 2.7 k/uL (1.0-4.8); Lymphocytes % (A) 18 %; MCHC 32.4 g/dL (31.0-37.0); Mean Platelet Volume 8.2; Monocytes # (A) 1.1 k/uL (0-1.0); Monocytes % (A) 7 %; Neutrophils # (A) 11.3 k/uL (1.3-7.7); Neutrophils % (A) 73 %; Platelet Count 406 k/uL (150-450); RBC 5.01 m/uL (3.80-5.40); RDW 15.9 % (11.5-15.5); WBC 15.5 k/uL (3.8-10.6)
[2019-02-20 08:13] LABS: Calcium 9.5 mg/dL (8.4-10.2)
[2019-02-20 08:22] LABS: MCV 83.3 fL (80.0-100.0)
[2019-02-20 08:24] LABS: Potassium 2.2 mmol/L (3.5-5.1)
[2019-02-20] MEDS ORDERED: Potassium Replacement Protocol 1 EACH MISC MISCELLANE PRN ×2 (08:42→16:42)
[2019-02-20] MEDS: IPRATROPIUM-ALBUTEROL 3 ML NEB INHALATION SCH ×4 (08:50→21:03)
[2019-02-20] MEDS: SALMETEROL INHALATION SCH ×2 (08:53→21:03)
[2019-02-20] MEDS: FLUTICASONE INHALATION SCH ×2 (08:53→21:03)
[2019-02-20] MEDS: levETIRAcetam 500 MG TAB PO SCH ×2 (09:13→21:44)
[2019-02-20] MEDS: PANTOPRAZOLE 40 MG TABLET PO SCH (09:13)
[2019-02-20] MEDS: SENNOSIDES-DOCUSATE SODIUM 1 EACH TAB PO SCH ×2 (09:13→21:45)
[2019-02-20] MEDS: NADOLOL 20 MG TAB PO SCH (09:14)
[2019-02-20] MEDS: ARIPiprazole 2 MG TAB PO SCH (09:14)
[2019-02-20] MEDS: FLECAINIDE 50 MG TAB PO SCH ×2 (09:14→21:49)
[2019-02-20] MEDS: FUROSEMIDE 40 MG TAB PO SCH ×2 (09:14→15:33)
[2019-02-20] MEDS: ACYCLOVIR 200 MG CAP PO SCH ×2 (09:14→21:44)
[2019-02-20] MEDS: acetaZOLAMIDE 250 MG TAB PO SCH (09:14)
[2019-02-20] MEDS: DOCUSATE 100 MG CAP PO SCH ×2 (09:14→21:45)
[2019-02-20] MEDS: NEOMYCIN-POLYMYXIN-DEXAMETH OINT 3.5 GM TUBE LEFT EYE SCH ×4 (09:15→21:49)
[2019-02-20] MEDS: FLUoxetine HCL 20 MG CAP PO SCH (09:15)
[2019-02-20] MEDS: TIMOLOL 0.5% OPHTH DROPS 5 ML BTL LEFT EYE SCH (09:15)
[2019-02-20] MEDS: AMMONIUM LACTATE 12% LOTION 225 GM BTL TOPICAL SCH ×2 (09:16→22:01)
[2019-02-20] MEDS: clonazePAM 1 MG TAB PO SCH ×2 (09:27→22:01)
[2019-02-20] MEDS: POTASSIUM CHLORIDE ER 20 MEQ TAB.ER PO SCH ×8 (10:52→23:03)
[2019-02-20] MEDS: POTASSIUM CHLORIDE 10 MEQ in WATER FOR INJECTION 1 100ML.BAG IVPB SCH ×2 (10:57→10:59)
--- NOTE | 2019-02-20 11:55 | P.PN ---
Subjective Progress Note Date: 02/20/19 This is a 73-year-old female with multiple medical issues admitted to the ER status post fall. Patient was at cardiology's office for pacemaker check-states no change in medications with the exception of potassium, as her potassium was high. Patient was ambulating with walker,reports she probably tripped on her oxygen tubing, fell, landing on left side.Denies syncope, no fecal or urine incontinence. Facial bones CT reported the left fracture of the floor of the left bony orbit with retro-orbital left-sided density consistent with acute hemorrhage and bruising, large left-sided periorbital hematoma. CT brain/spine reporting left periorbital hematoma, no acute intracranial abnormality, no fracture with no significant change of the brain and C-spine compared to prior exam. Chest x-ray reporting subsegmental atelectasis left lung base improved compared to prior exam. EKG pending. Right knee reporting moderate osteoarthritis, no fracture. Lumbar spine reporting no fracture, no change compared to prior exam. Evaluated by a Dr. Galo Krishna, desk interviewer, underwent left lateral canthotomy with cantholysis of left eye secondary to traumatic retrobulbar hemorrhage and increased intraocular pressure. Decrease intraocular pressure post procedure from 53 to 24. Timolol drops initiated C omplains of left sided facial/brow pain, back pain, and left hip pain. Reports diplopia of affected eye and able to open the eyelid minimally. Headache earlier, subsided. Denies chest pain, palpitations or increased shortness of breath. VSS, maintaining O2 sats in the 90s on 4 L nasal cannula, patient's baseline. Mild leukocytosis. 02/19/2019 left hip/pelvis x-ray reporting no acute fracture or dislocation. Bilateral arthropathy, possible femoral acetabular impingement. Reports back pain, less eye brow/ facial pain. Eye edema improving.VSS. Afebrile. ENT consult in place with recommendations pending. Evaluated by physical therapy with subacute rehab recommended. Denies chest pain, palpitations or shortness of breath. 02/20/2019 chronic back pain, facial pain controlled on Percocets. Chronic back pain better controlled with the addition of Flexeril. Potassium 2.2, magnesium 2.4. Telemetry sinus rhythm with first-degree AV block. [employer] pacemaker interrogated, report being obtained .Both IV and oral potassium supplements ordered. Oral intake fair, creatinine up to 1.29, metolazone discontinued. Afebrile. Maintaining O2 sats in the 90s on 4 L nasal cannula. Objective - Vital Signs Vital signs: Vital Signs Temp 98.1 F 02/20/19 05:00 Pulse 62 02/20/19 05:00 Resp 18 02/20/19 05:00 BP 125/76 02/20/19 05:00 Pulse Ox 94 L 02/20/19 05:00 Intake & Output 02/19/19 02/20/19 02/20/19 18:59 06:59 18:59 Intake Total 650 160 Balance 650 160 Weight 100 kg Intake: Intake, IV Titration 160 Amount Sodium Chloride 0.9% 1, 160 000 ml @ 20 mls/hr IV . Q24H [facility] Rx#:[id number] Oral 650 Other: Voiding Method Bedside Commode Bedside Commode # Voids 2 2 - Exam VITAL SIGNS: As above GENERAL: Sitting up in chair, no acute distress HEENT: Left-sided facial bruising/tenderness/ lessening edema of brow, upper & lower eyelid NECK: No JVD. No thyroid enlargement. No LNs CARDIOVASCULAR: S1, S2 regular. No murmur RESPIRATION: Breath sounds diminished in the bases. No rhonchi or crackles. No bronchial breathing. ABDOMEN: Soft, nontender . No guarding. no masses palpable. Bowel sounds heard. LEGS: No edema. no swelling PSYCHIATRY: Alert and oriented X3, mood and affect normal. NERVOUS SYSTEM: Cranial N 2-12 grossly normal. Moves all 4 limbs. Diffuse weakness No focal deficits. Strength and sensation grossly intact.. - Labs CBC & Chem 7: 02/20/19 06:45 02/20/19 06:45 Labs: Abnormal Lab Results - Last 24 Hours (Table) 02/19/19 02/20/19 02/20/19 Range/Units 10:59 06:45 06:45 WBC 15.5 H (3.8-10.6) k/uL RDW 15.9 H (11.5-15.5) % Neutrophils # 11.3 H (1.3-7.7) k/uL Monocytes # 1.1 H (0-1.0) k/uL Sodium 136 L (137-145) mmol/L Potassium 2.2 L* (3.5-5.1) mmol/L Chloride 83 L (98-107) mmol/L Carbon Dioxide 37 H (22-30) mmol/L BUN 28 H (7-17) mg/dL Creatinine 1.29 H (0.52-1.04) mg/dL Glucose 175 H (74-99) mg/dL POC Glucose (mg/dL) 127 H (75-99) mg/dL Assessment and Plan Assessment: -Traumatic retrobulbar hemorrhage with increased intraocular pressure, S/P Left lateral canthotomy with cantholysis -Left Orbital floor fracture ( blow out) -S/P fall in a patient with history of falls -Possible left femoral acetabular impingement, workup in progress. -Chronic paroximal atrial fibrillation -CAD, History of SVT, atrial tachycardia, cardiac ablation -Pacemaker secondary to sick sinus syndrome -Chronic asthma, stable -Gait dysfunction, uses walker -CHF,type unknown -Gastroesophageal reflux disease -COPD, stable -Seizure disorder -Sleep apnea uses CPAP/BiPAP at home -History of syncope -History of Bladder Cancer -OA -Chronic Anemia -History of splenectomy -Anxiety, depression -Chronic hypoxic respiratory failure, 4 liters at home -History of nicotine dependence -Hypertension -Obesity, BMI 38.1 -Chronic back pain -Hypokalemia Plan: Continue on current medication regime ,monitoring and symptomatic kaleb atment. Orthopedics and ENT consults in place, recommendations pending. Pain management. PT/OT. Ensure supplements ordered. Follow-up potassium level at 1600. Close monitoring of renal function with repeat labs ordered for a.m. Follow closely with ophthalmology. Discharge planning in progress for subacute rehab. tomorrow, pre- auth. pending. The impression and plan of care has been dictated as directed. : I performed a history and examination of this patient, discussed the same with the dictator. I agree with the dictator's note ,documented as a scribe. Any additional findings or plans will be noted.
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
--- NOTE | 2019-02-20 13:42 | P.CON ---
Consult Note - . Consult date: 02/20/19 Assessment/Plan:: 73 y/o female who suffered a traumatic retrobulbar hemorrhage on the left side, today seems to be in good spirits. No particular complaint with respsect to the eye or orbit. Is able to partially open the left eye and denies diplopia. PE: Va: uncorrected 20/40 OD; 20/30-2 OS Ext: resolving bruising and swelling on the left periorbital area EOM: essentially full OU Pupils: -APD IOP: 09 mm Hg OD; 11 mm Hg OS, via Tonopen @ 1130 hrs A: 1)traumatic retrobulbar hemorrhage left side, resolving swelling and limitation of movement of the globe, returning to singular binocular vision 2) post lateral canthotomy, in need of repair, still covering with topical antibiotic ointment. 3) ocular hypertension secondary to #1 resolving will withdraw timolol drops P: 1) continue to apply ointment to left lateral canthus until repaired 2) will stop timolol drops for left eye 3) follow up in office early next week. 4) left canthoplasty scheduled for 02/26/2019 - outpatient
[2019-02-20] MEDS: RIVAROXABAN 20 MG TAB PO SCH (21:45)
[2019-02-20] MEDS: ATORVASTATIN 20 MG TAB PO SCH (21:45)
[2019-02-20] MEDS: SODIUM CHLORIDE 0.9% 1,000 ML IV SCH ×2 (22:02)
[2019-02-21 05:46] VITALS: RESP 18
[2019-02-21] MEDS: NEOMYCIN-POLYMYXIN-DEXAMETH OINT 3.5 GM TUBE LEFT EYE SCH ×2 (08:01→12:35)
[2019-02-21] MEDS: oxyCODONE-APAP 7.5-325MG 1 EACH TAB PO PRN ×2 (08:01→12:37)
[2019-02-21] MEDS: ARIPiprazole 2 MG TAB PO SCH (08:01)
[2019-02-21] MEDS: SENNOSIDES-DOCUSATE SODIUM 1 EACH TAB PO SCH (08:01)
[2019-02-21] MEDS: FLECAINIDE 50 MG TAB PO SCH (08:02)
[2019-02-21] MEDS: FLUoxetine HCL 20 MG CAP PO SCH (08:02)
[2019-02-21] MEDS: NADOLOL 20 MG TAB PO SCH (08:02)
[2019-02-21] MEDS: ACYCLOVIR 200 MG CAP PO SCH (08:02)
[2019-02-21] MEDS: FUROSEMIDE 40 MG TAB PO SCH (08:02)
[2019-02-21] MEDS: PANTOPRAZOLE 40 MG TABLET PO SCH (08:02)
[2019-02-21] MEDS: DOCUSATE 100 MG CAP PO SCH (08:02)
[2019-02-21] MEDS: levETIRAcetam 500 MG TAB PO SCH (08:02)
[2019-02-21] MEDS: clonazePAM 1 MG TAB PO SCH (08:02)
[2019-02-21] MEDS: AMMONIUM LACTATE 12% LOTION 225 GM BTL TOPICAL SCH (08:03)
[2019-02-21] MEDS: IPRATROPIUM-ALBUTEROL 3 ML NEB INHALATION SCH ×2 (09:29→13:27)
[2019-02-21] MEDS: FLUTICASONE INHALATION SCH (09:29)
[2019-02-21] MEDS: SALMETEROL INHALATION SCH (09:29)
[2019-02-21 09:43] LABS: Basophils % (A) 0 %; Eosinophils # (A) 0.1 k/uL (0-0.7); Eosinophils % (A) 1 %; HCT 41.9 % (34.0-46.0); HGB 13.1 gm/dL (11.4-16.0); Hypochromasia Slight; Lymphocytes % (A) 20 %; MCH 26.5 pg (25.0-35.0); MCHC 31.2 g/dL (31.0-37.0); MCV 84.9 fL (80.0-100.0); Mean Platelet Volume 7.9; Monocytes # (A) 0.8 k/uL (0-1.0); Monocytes % (A) 8 %; Neutrophils # (A) 6.8 k/uL (1.3-7.7); Neutrophils % (A) 68 %; Platelet Count 411 k/uL (150-450); RBC 4.93 m/uL (3.80-5.40); RDW 15.9 % (11.5-15.5)
[2019-02-21 10:02] LABS: Calcium 9.6 mg/dL (8.4-10.2)
[2019-02-21 10:07] LABS: Potassium 2.5 mmol/L (3.5-5.1)
[2019-02-21] MEDS ORDERED: Potassium Replacement Protocol 1 EACH MISC MISCELLANE PRN (10:16)
[2019-02-21] MEDS ORDERED: 0.9% NACL WITH KCL 40 MEQ/L 1,000 ML IV SCH (10:56)
[2019-02-21] MEDS ORDERED: POTASSIUM CHLORIDE ER 20 MEQ TAB.ER PO SCH (11:00)
--- NOTE | 2019-02-21 12:10 | P.PN ---
Subjective Progress Note Date: 02/21/19 This is a 73-year-old female with multiple medical issues admitted to the ER status post fall. Patient was at cardiology's office for pacemaker check-states no change in medications with the exception of potassium, as her potassium was high. Patient was ambulating with walker,reports she probably tripped on her oxygen tubing, fell, landing on left side.Denies syncope, no fecal or urine incontinence. Facial bones CT reported the left fracture of the floor of the left bony orbit with retro-orbital left-sided density consistent with acute hemorrhage and bruising, large left-sided periorbital hematoma. CT brain/spine reporting left periorbital hematoma, no acute intracranial abnormality, no fracture with no significant change of the brain and C-spine compared to prior exam. Chest x-ray reporting subsegmental atelectasis left lung base improved compared to prior exam. EKG pending. Right knee reporting moderate osteoarthritis, no fracture. Lumbar spine reporting no fracture, no change compared to prior exam. Evaluated by a Dr. Galo Krishna, lgsw, underwent left lateral canthotomy with cantholysis of left eye secondary to traumatic retrobulbar hemorrhage and increased intraocular pressure. Decrease intraocular pressure post procedure from 53 to 24. Timolol drops initiated C omplains of left sided facial/brow pain, back pain, and left hip pain. Reports diplopia of affected eye and able to open the eyelid minimally. Headache earlier, subsided. Denies chest pain, palpitations or increased shortness of breath. VSS, maintaining O2 sats in the 90s on 4 L nasal cannula, patient's baseline. Mild leukocytosis. 02/19/2019 left hip/pelvis x-ray reporting no acute fracture or dislocation. Bilateral arthropathy, possible femoral acetabular impingement. Reports back pain, less eye brow/ facial pain. Eye edema improving.VSS. Afebrile. ENT consult in place with recommendations pending. Evaluated by physical therapy with subacute rehab recommended. Denies chest pain, palpitations or shortness of breath. 02/20/2019 chronic back pain, facial pain controlled on Percocets. Chronic back pain better controlled with the addition of Flexeril. Potassium 2.2, magnesium 2.4. Telemetry sinus rhythm with first-degree AV block. [employer]nell pacemaker interrogated, report being obtained .Both IV and oral potassium supplements ordered. Oral intake fair, creatinine up to 1.29, metolazone discontinued. Afebrile. Maintaining O2 sats in the 90s on 4 L nasal cannula. 02/21/2019 Facial edema improving, opening left eye, denies diplopia. Renal function improving, creatinine 1.19.. Potassium slowly improving up to 2.5, continues on supplements-declining IV supplements. Magnesium level pending. Pacemaker interrogation reported lead impedance and sense normal as reviewed with cardiology MEETING PLANNER. Evaluated by orthopedic surgery with recommendations noted. Pain controlled. Afebrile, normal WBC. Objective - Vital Signs Vital signs: Vital Signs Temp 98.1 F 02/21/19 05:00 Pulse 60 02/21/19 09:39 Resp 18 02/21/19 05:00 BP 117/77 02/21/19 05:00 Pulse Ox 100 02/21/19 05:00 Intake & Output 02/20/19 02/21/19 02/21/19 18:59 06:59 18:59 Intake Total 1440 Balance 1440 Weight 103 kg Intake: Intake, IV Titration 120 Amount Sodium Chloride 0.9% 1, 120 000 ml @ 20 mls/hr IV . Q24H [facility] Rx#:[id number] Oral 1320 Other: Voiding Method Bedside Commode Bedside Commode Bedside Commode # Voids 2 3 1 # Bowel Movements 1 1 - Exam VITAL SIGNS: As above GENERAL: Sitting up in chair, no acute distress HEENT: Left-sided facial improving bruising/tenderness/ edema of brow, upper & lower eyelid, opening left eye. NECK: No JVD. No thyroid enlargement. No LNs CARDIOVASCULAR: S1, S2 regular. No murmur RESPIRATION: Breath sounds diminished in the bases. No rhonchi or crackles. No wheezing ABDOMEN: Soft, nontender . No guarding. no masses palpable. Bowel sounds heard. LEGS: No edema. no swelling PSYCHIATRY: Alert and oriented X3, mood and affect normal. NERVOUS SYSTEM: Cranial N 2-12 grossly normal. Moves all 4 limbs. Diffuse weakness No focal deficits. Strength and sensation grossly intact. - Labs CBC & Chem 7: 02/21/19 09:27 02/21/19 09:27 Labs: Abnormal Lab Results - Last 24 Hours (Table) 02/20/19 02/21/19 02/21/19 Range/Units 15:28 09:27 09:27 RDW 15.9 H (11.5-15.5) % Sodium 136 L (137-145) mmol/L Potassium 2.3 L* 2.5 L* (3.5-5.1) mmol/L Chloride 91 L (98-107) mmol/L BUN 31 H (7-17) mg/dL Creatinine 1.19 H (0.52-1.04) mg/dL Glucose 203 H (74-99) mg/dL Magnesium (1.6-2.3) mg/dL 02/21/19 Range/Units 09:27 RDW (11.5-15.5) % Sodium (137-145) mmol/L Potassium (3.5-5.1) mmol/L Chloride (98-107) mmol/L BUN (7-17) mg/dL Creatinine (0.52-1.04) mg/dL Glucose (74-99) mg/dL Magnesium 2.5 H (1.6-2.3) mg/dL Assessment and Plan Assessment: -Left-sided Traumatic retrobulbar hemorrhage with increased intraocular pressure, S/P Left lateral canthotomy with cantholysis -Left Orbital floor fracture ( blow out) -S/P fall in a patient with history of falls -Possible left femoral acetabular impingement, workup in progress. -Chronic paroximal atrial fibrillation -CAD, History of SVT, atrial tachycardia, cardiac ablation -Pacemaker secondary to sick sinus syndrome -Chronic asthma, stable -Gait dysfunction, uses walker -CHF,type unknown -Gastroesophageal reflux disease -COPD, stable -Seizure disorder -Sleep apnea uses CPAP/BiPAP at home -History of syncope -History of Bladder Cancer -OA -Chronic Anemia -History of splenectomy -Anxiety, depression -Chronic hypoxic respiratory failure, 4 liters at home -History of nicotine dependence -Hypertension -Obesity, BMI 38.1 -Chronic back pain, multilevel lumbar spine degenerative disc disease -Hypokalemia -Left knee, bilateral hip osteoarthritis Plan: Continue on current medication regime ,monitoring and symptomatic treatment. Continue with potassium supplements with repeat potassium level at 1600. Magnesium level pending. ENT consults in place, recommendations pending. Pain management. PT/OT.Close monitoring of renal function with repeat labs ordered for a.m. Follow with ophthalmology outpatient next week. Discharge pl anning in progress for subacute rehab. pending normalizing of potassium. The impression and plan of care has been dictated as directed. : I performed a history and examination of this patient, discussed the same with the dictator. I agree with the dictator's note ,documented as a scribe. Any additional findings or plans will be noted.
[2019-02-21] MEDS: POTASSIUM CHLORIDE ER 20 MEQ TAB.ER PO SCH ×2 (12:35→13:56)
--- NOTE | 2019-02-21 12:56 | P.DS ---
Providers Date of admission: 02/17/19 21:37 Attending physician: James Mackay Consults: 02/17/19 18:24 Consult Physician Stat Consulting Provider: Galo Krishna Consult Reason/Comments: increased IOP after fall Do you want consulting provider notified?: Already Contacted 02/18/19 13:31 Consult Physician Routine Consulting Provider: Jayson Andres Consult Reason/Comments: traumatic left orbital fracture Do you want consulting provider notified?: Yes 02/19/19 17:32 Consult Physician Routine Consulting Provider: Bam Anderson Consult Reason/Comments: possible left femoral acetabular impingement. Do you want consulting provider notified?: Yes Primary care physician: [facility] Course: Final Diagnoses: This is a 73-year-old female with multiple medical issues admitted to the ER status post fall. Patient was at cardiology's office for pacemaker check-states no change in medications with the exception of potassium, as her potassium was high. Patient was ambulating with walker,reports she probably tripped on her oxygen tubing, fell, landing on left side.Denies syncope, no fecal or urine incontinence. Facial bones CT reported the left fracture of the floor of the left bony orbit with retro-orbital left-sided density consistent with acute hemorrhage and bruising, large left-sided periorbital hematoma. CT brain/spine reporting left periorbital hematoma, no acute intracranial abnormality, no fracture with no significant change of the brain and C-spine compared to prior exam. Chest x-ray reporting subsegmental atelectasis left lung base improved compared to prior exam. EKG pending. Right knee reporting moderate osteoarthritis, no fracture. Lumbar spine reporting no fracture, no change compared to prior exam. Evaluated by a Dr. Galo Krishna, health physics technician, underwent left lateral canthotomy with cantholysis of left eye secondary to traumatic retrobulbar hemorrhage and increased intraocular pressure. Decrease intraocular pressure post procedure from 53 to 24. Timolol drops initiated Complains of left sided facial/brow pain, back pain, and left hip pain. Reports diplopia of affected eye and able to open the eyelid minimally. Headache earlier, subsided. Denies chest pain, palpitations or increased shortness of breath. VSS, maintaining O2 sats in the 90s on 4 L nasal cannula, patient's baseline. Mild leukocytosis. 02/19/2019 left hip/pelvis x-ray reporting no acute fracture or dislocation. Bilateral arthropathy, possible femoral acetabular impingement. Reports back pain, less eye brow/ facial pain. Eye edema improving.VSS. Afebrile. ENT consult in place with recommendations pending. Evaluated by physical therapy with subacute rehab recommended. Denies chest pain, palpitations or shortness of breath. 02/20/2019 chronic back pain, facial pain controlled on Percocets. Chronic back pain better controlled with the addition of Flexeril. Potassium 2.2, magnesium 2.4. Telemetry sinus rhythm with first-degree AV block. [place] [place] pacemaker interrogated, report being obtained .Both IV and oral potassium supplements ordered. Oral intake fair, creatinine up to 1.29, metolazone discontinued. Afebrile. Maintaining O2 sats in the 90s on 4 L nasal cannula. 02/21/2019 Facial edema improving, opening left eye, denies diplopia. Renal function improving, creatinine 1.19.. Potassium slowly improving up to 2.5, continues on supplements-declining IV supplements. Magnesium level pending. 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 Evaluated by orthopedic surgery with recommendations noted. Pain controlled. Afebrile, normal WBC. Patient had not been on home medication of potassium which she takes 60 mEq daily. Resumed. Patient will be discharged to subacute rehab today, she is declining IV supplements. Repeat BMP in a.m. with labs to be called to Dr. Mackay. Significant clinical improvement. Cleared by orthopedics and ophthalmology for discharge. Patient is being discharged to [facility] subacute rehab in a stable condition with guarded prognosis. - Exam GENERAL: Alert & Oriented X 3, no acute distress HEENT: Left-sided facial improving bruising/tenderness/ edema of brow, upper & lower eyelid, opening left eye. CARDIOVASCULAR: S1, S2 regular. No murmur RESPIRATION: Breath sounds diminished in the bases. ABDOMEN: Soft, nontender . No guarding. no masses palpable. Bowel sounds heard. NERVOUS SYSTEM: Cranial N 2-12 grossly normal. Moves all 4 limbs. Diffuse weakness No focal deficits. The impression and plan of care has been dictated as directed. : I performed a history and examination of this patient, discussed the same with the dictator. I agree with the dictator's note ,documented as a scribe. Any additional findings or plans will be noted. Time taken: 35 minutes Patient Condition at Discharge: Stable Plan - Discharge Summary Discharge Rx Participant: No New Discharge Prescriptions: New Ipratropium-Albuterol Nebulize [Duoneb 0.5 mg-3 mg/3 ml Soln] 3 ml INHALATION RT-QID ampul.neb Ipratropium-Albuterol Nebulize [Duoneb 0.5 mg-3 mg/3 ml Soln] 3 ml INHALATION Q4H PRN ampul.neb PRN Reason: Shortness Of Breath Or Wheezing Fpubdkmq-Tkwokouth-Mgyqigth [Maxitrol Ophth Oint] 1 applic LEFT EYE QID applic Timolol 0.5% Ophth Soln [Timoptic 0.5% Ophth Soln] 1 drops LEFT EYE BID ml Acetaminophen Tab [Tylenol] 650 mg PO Q6HR PRN tab PRN Reason: Mild Pain Or Fever > 100.5 clonazePAM [KlonoPIN] 2 mg PO BID #12 tab Docusate [Colace] 100 mg PO BID cap Sennosides-Docusate Sodium [Senokot-S] 2 each PO BID tab Cyclobenzaprine [Flexeril] 5 mg PO Q8H PRN tab PRN Reason: Muscle Pain Continue Rivaroxaban [Xarelto] 20 mg PO HS Omeprazole 40 mg PO DAILY Flecainide Acetate [Tambocor] 100 mg PO BID levETIRAcetam [Keppra] 1,500 mg PO BID Acyclovir [Zovirax] 400 mg PO BID FLUoxetine HCL [PROzac] 60 mg PO DAILY cap Ammonium Lactate Lotion [Lac-Hydrin 12% Lotion] 1 applic TOPICAL BID Simvastatin [Zocor] 40 mg PO HS ARIPiprazole [Abilify] 2 mg PO DAILY Furosemide [Lasix] 40 mg PO BID@0900,1600 tab Nadolol [Corgard] 40 mg PO DAILY tab predniSONE 5 mg PO DAILY Glycopyrrolate/Neb.accessories [Lonhala Magnair 25 Mcg Refill] 25 mcg INHALATION RT-BID Fluticasone/Salmeterol [Advair 250-50 Diskus] 1 puff INHALATION RT-BID oxyCODONE-APAP 7.5-325MG [Percocet 7.5-325 mg] 1 tab PO TID #9 tab Changed Potassium Chloride ER [K-Dur 20] 20 meq PO TID #0 Discontinued Ibuprofen [Motrin] 600 mg PO TID PRN PRN Reason: Pain Ipratropium-Albuterol Nebulize [Duoneb 0.5 mg-3 mg/3 ml Soln] 3 ml INHALATION RT-BID PRN PRN Reason: Shortness Of Breath Metolazone [Zaroxolyn] 2.5 mg PO DAILY clonazePAM [KlonoPIN] 1 mg PO QID Discharge Medication List Omeprazole 40 mg PO DAILY 07/07/14 [History] Rivaroxaban [Xarelto] 20 mg PO HS 07/07/14 [History] Flecainide Acetate [Tambocor] 100 mg PO BID 02/16/16 [History] levETIRAcetam [Keppra] 1,500 mg PO BID 08/04/16 [History] Acyclovir [Zovirax] 400 mg PO BID 12/20/17 [History] FLUoxetine HCL [PROzac] 60 mg PO DAILY cap 12/24/17 [Rx] ARIPiprazole [Abilify] 2 mg PO DAILY 03/24/18 [History] Ammonium Lactate Lotion [Lac-Hydrin 12% Lotion] 1 applic TOPICAL BID 03/24/18 [History] Simvastatin [Zocor] 40 mg PO HS 03/24/18 [History] Furosemide [Lasix] 40 mg PO BID@0900,1600 tab 03/27/18 [Rx] Nadolol [Corgard] 40 mg PO DAILY tab 03/27/18 [Rx] Fluticasone/Salmeterol [Advair 250-50 Diskus] 1 puff INHALATION RT-BID 02/17/19 [History] Glycopyrrolate/Neb.accessories [Lonhala Magnair 25 Mcg Refill] 25 mcg INHALATION RT-BID 02/17/19 [History] predniSONE 5 mg PO DAILY 02/17/19 [History] Acetaminophen Tab [Tylenol] 650 mg PO Q6HR PRN tab 02/19/19 [Rx] Ipratropium-Albuterol Nebulize [Duoneb 0.5 mg-3 mg/3 ml Soln] 3 ml INHALATION Q4H PRN ampul.neb 02/19/19 [Rx] Ipratropium-Albuterol Nebulize [Duoneb 0.5 mg-3 mg/3 ml Soln] 3 ml INHALATION RT-QID ampul.neb 02/19/19 [Rx] Xrbrjlpr-Ofamieyld-Whwvbjic [Maxitrol Ophth Oint] 1 applic LEFT EYE QID applic 02/19/19 [Rx] Timolol 0.5% Ophth Soln [Timoptic 0.5% Ophth Soln] 1 drops LEFT EYE BID ml 02/19/19 [Rx] clonazePAM [KlonoPIN] 2 mg PO BID #12 tab 02/19/19 [Rx] oxyCODONE-APAP 7.5-325MG [Percocet 7.5-325 mg] 1 tab PO TID #9 tab 02/19/19 [Rx] Docusate [Colace] 100 mg PO BID cap 02/20/19 [Rx] Sennosides-Docusate Sodium [Senokot-S] 2 each PO BID tab 02/20/19 [Rx] Cyclobenzaprine [Flexeril] 5 mg PO Q8H PRN tab 02/21/19 [Rx] Potassium Chloride ER [K-Dur 20] 20 meq PO TID #0 02/21/19 [Rx] Follow up Appointment(s)/Referral(s): Galo Krishna MD [STAFF PHYSICIAN] - 02/24/19 James Mackay MD [Primary Care Provider] - 3 Days Jayson Andres MD [STAFF PHYSICIAN] - 1 Week Activity/Diet/Wound Care/Special Instructions: [facility] BMP in AM CBC,BMP in 3 days Diet: Cardiac, 1200 mL fluid restriction/24 hours Activity: As tolerated Discharge Disposition: TRANSFER TO SNF/F
[2019-02-21 13:44] VITALS: BP 101/50; PULSE 62; TEMP 97
[2019-02-21 14:41] VITALS: BMI 36.6
[2019-02-21] MEDS ORDERED: RIVAROXABAN 15 MG TAB PO SCH (21:00)
== END 2019-02-21 14:30 | DRG 115 ==
LOC: EC 16:51 → 4SSUR 21:37 → OBSVTOIN 21:37 → 3NMEDONC 02-18 00:15
PROVIDERS: ADMIT Family Medicine; ATTEND Family Medicine
PROC: 08N1XZZ Release Left Eye, External Approach (ICD-10-PCS; principal; 2019-02-17)
PROC: 4B02XSZ Measurement of Cardiac Pacemaker, External Approach (ICD-10-PCS; 2019-02-19)
DX: S05.12XA Contusion of eyeball and orbital tissues, left eye, initial encounter (principal); S02.32XA Fracture of orbital floor, left side, initial encounter for closed fracture; J98.11 Atelectasis; J96.11 Chronic respiratory failure with hypoxia; E87.5 Hyperkalemia; I11.0 Hypertensive heart disease with heart failure; I48.0 Paroxysmal atrial fibrillation; I49.5 Sick sinus syndrome; G40.909 Epilepsy, unspecified, not intractable, without status epilepticus; I50.9 Heart failure, unspecified; J44.9 Chronic obstructive pulmonary disease, unspecified; D64.9 Anemia, unspecified; H40.052 Ocular hypertension, left eye; H53.2 Diplopia; I44.0 Atrioventricular block, first degree; E87.6 Hypokalemia; M51.36 Other intervertebral disc degeneration, lumbar region; D72.829 Elevated white blood cell count, unspecified; I25.10 Atherosclerotic heart disease of native coronary artery without angina pectoris; G47.33 Obstructive sleep apnea (adult) (pediatric); M79.7 Fibromyalgia; K21.9 Gastro-esophageal reflux disease without esophagitis; E78.5 Hyperlipidemia, unspecified; M17.0 Bilateral primary osteoarthritis of knee; M16.0 Bilateral primary osteoarthritis of hip; G89.29 Other chronic pain; F32.9 Major depressive disorder, single episode, unspecified; F41.9 Anxiety disorder, unspecified; R26.9 Unspecified abnormalities of gait and mobility; M81.0 Age-related osteoporosis without current pathological fracture; G43.909 Migraine, unspecified, not intractable, without status migrainosus; H26.9 Unspecified cataract; L40.9 Psoriasis, unspecified; E66.9 Obesity, unspecified; Z68.38 Body mass index [BMI] 38.0-38.9, adult; Z99.81 Dependence on supplemental oxygen; Z79.01 Long term (current) use of anticoagulants; Z79.891 Long term (current) use of opiate analgesic; Z79.51 Long term (current) use of inhaled steroids; Z79.899 Other long term (current) drug therapy; Z71.3 Dietary counseling and surveillance; Z91.81 History of falling; Z95.0 Presence of cardiac pacemaker; Z90.6 Acquired absence of other parts of urinary tract; Z87.891 Personal history of nicotine dependence; Z87.01 Personal history of pneumonia (recurrent); Z86.711 Personal history of pulmonary embolism; Z85.51 Personal history of malignant neoplasm of bladder; Z87.440 Personal history of urinary (tract) infections; Z87.81 Personal history of (healed) traumatic fracture; Z90.81 Acquired absence of spleen; Z96.611 Presence of right artificial shoulder joint; Z98.890 Other specified postprocedural states; Z88.5 Allergy status to narcotic agent; Z91.013 Allergy to seafood; Z88.8 Allergy status to other drugs, medicaments and biological substances; Z91.018 Allergy to other foods; Z91.09 Other allergy status, other than to drugs and biological substances; W01.0XXA Fall on same level from slipping, tripping and stumbling without subsequent striking against object, initial encounter; Y92.531 Health care provider office as the place of occurrence of the external cause; Z82.49 Family history of ischemic heart disease and other diseases of the circulatory system; Z83.1 Family history of other infectious and parasitic diseases; Z82.62 Family history of osteoporosis
CPT/HCPCS: 36415; 70450; 70486; 71046; 72100; 72125; 73502; 80048; 80053; 81001; 83735; 84132; 84484; 85025; 85027; 85610; 85730; 93005; 94640; 94760; 96361; 96372; 96374; 96375; 96376; 99285

== ENCOUNTER 2020-01-19 10:22 | Inpatient (IN) | payer MEDICARE, OTHER ==
--- NOTE | 2020-01-19 11:05 | XR ---
EXAMINATION TYPE: XR chest 2V DATE OF EXAM: 01/19/2020 COMPARISON: 02/17/2019 HISTORY: 74 year-old female shortness of breath TECHNIQUE: AP and lateral views FINDINGS: Left anterior chest wall pacemaker generator with right atrial and right ventricular leads. Heart mil d to moderately enlarged. Pulmonary vasculature may be slightly cephalized. No daily consolidation or pleural effusion is seen. IMPRESSION: Cardiomegaly. Pulmonary vasculature may be slightly cephalized suggesting possible mild pulmonary vas cular congestion. No pulmonary edema.
[2020-01-19 11:06] LABS: Basophils % (A) 0 %; Eosinophils # (A) 0.1 k/uL (0-0.7); Eosinophils % (A) 1 %; HCT 41.4 % (34.0-46.0); HGB 12.5 gm/dL (11.4-16.0); Hypochromasia Moderate; Lymphocytes # (A) 1.9 k/uL (1.0-4.8); Lymphocytes % (A) 15 %; MCH 26.9 pg (25.0-35.0); MCHC 30.3 g/dL (31.0-37.0); Mean Platelet Volume 8.3; Monocytes # (A) 0.6 k/uL (0-1.0); Monocytes % (A) 5 %; Neutrophils # (A) 9.5 k/uL (1.3-7.7); Neutrophils % (A) 77 %; Platelet Count 415 k/uL (150-450); RBC 4.65 m/uL (3.80-5.40); RDW 14.2 % (11.5-15.5); WBC 12.3 k/uL (3.8-10.6)
[2020-01-19 11:16] LABS: ALT 47 U/L (4-34); AST 41 U/L (14-36); African American GFR (CKD) >90 (>60 ml/min/1.73 sqM); Albumin 3.7 g/dL (3.5-5.0); Alkaline Phosphatase 36 U/L (38-126); Anion Gap 11 mmol/L; Blood Urea Nitrogen 20 mg/dL (7-17); Calcium 9.3 mg/dL (8.4-10.2); Carbon Dioxide 29 mmol/L (22-30); Chloride 102 mmol/L (98-107); Glucose 192 mg/dL (74-99); Non-African American GFR(CKD) 86 (>60 ml/min/1.73 sqM); Potassium 4.6 mmol/L (3.5-5.1); Sodium 142 mmol/L (137-145); Total Bilirubin 0.3 mg/dL (0.2-1.3); Total Protein 6.7 g/dL (6.3-8.2)
[2020-01-19] MEDS ORDERED: DILTIAZEM 125 MG in SODIUM CHLORIDE 0.9% 100 ML IV SCH (11:30)
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
[2020-01-19] MEDS ORDERED: oxyCODONE-APAP 7.5-325MG 1 EACH TAB PO STA (12:47)
[2020-01-19] MEDS ORDERED: ACETAMINOPHEN TAB 325 MG TAB PO PRN ×2 (13:20→19:44)
[2020-01-19] MEDS ORDERED: NALOXONE 0.4 MG/ML 1 ML VIAL IV PRN (13:20)
[2020-01-19 16:34] LABS: Glucose,Whole Blood 159 mg/dL (75-99)
[2020-01-19] MEDS: SODIUM CHLORIDE 0.9% 1,000 ML IV SCH (19:30)
[2020-01-19] MEDS: ATORVASTATIN 20 MG TAB PO SCH (19:36)
[2020-01-19] MEDS: RIVAROXABAN 20 MG TAB PO SCH (19:36)
[2020-01-19] MEDS: FLUoxetine HCL 20 MG CAP PO SCH (20:14)
[2020-01-19] MEDS: POTASSIUM CHLORIDE ER 20 MEQ TAB.ER PO SCH (20:15)
[2020-01-19] MEDS: clonazePAM 1 MG TAB PO SCH (20:15)
[2020-01-19] MEDS: levETIRAcetam 500 MG TAB PO SCH (20:15)
[2020-01-19] MEDS: FLECAINIDE 50 MG TAB PO SCH (20:15)
[2020-01-19 20:27] LABS: Glucose,Whole Blood 148 mg/dL (75-99)
[2020-01-19] MEDS: DICLOFENAC SODIUM GEL 100 GM TUBE TOPICAL SCH (20:50)
[2020-01-19] MEDS: ACYCLOVIR 200 MG CAP PO SCH (20:50)
[2020-01-19] MEDS: AMMONIUM LACTATE 12% LOTION 225 GM BTL TOPICAL SCH (20:50)
[2020-01-19] MEDS: MECLIZINE 12.5 MG TAB PO SCH (20:50)
[2020-01-19] MEDS: oxyCODONE-APAP 5-325MG 1 EACH TAB PO PRN (22:15)
--- NOTE | 2020-01-20 00:17 | HP ---
HISTORY AND PHYSICAL This 74-year-old white female came in with atrial fibrillation, rapid ventricular response, atrial fibrillation, pacemaker, heart failure, COPD, palpitations, progressive increase frequency, intensity of her palpitations, heart rate into the 150s started. She is on for blood thinner due to tachycardia into the 150s with atrial fibrillation with rapid ventricular response. Started on Cardizem drip. Cardiology consult. She has had a large amount of weight gain. REVIEW OF SYSTEMS: Fourteen point review of systems is negative. MEDICATIONS: 1. Omeprazole 40 mg daily. 2. Xarelto 20 mg daily. 3. Tambocor 100 mg b.i.d. 4. Keppra 2000 b.i.d. 5. Zovirax 400 b.i.d. 6. Abilify 2 mg daily. 7. Lac-Hydrin 12% b.i.d. 8. Zocor 40 daily. 9. Advair 250/50 one puff b.i.d. 10. 25 mcg nebulizer b.i.d. 11.Prednisone 5 mg daily. 12.Potassium chloride 40 mEq t.i.d. 13.Klonopin 2 mg b.i.d. 14.Prozac 60 mg daily. 15.Lasix 40 mg b.i.d. 16.Corgard 40 mg daily. 17.Oxycodone mg t.i.d. 18.Flexeril 5 mg q.8 hours. ALLERGIES: SHELLFISH, SYMBICORT, MEPERIDINE, DARVON, MOLD. PAST MEDICAL HISTORY: Atrial fibrillation, asthma, cancer, angina, heart failure, COPD, fibromyalgia, GERD, dyslipidemia, osteoarthritis, pulmonary embolism, seizure disorder, sleep apnea, syncope. PAST SURGICAL HISTORY: Bladder surgery, cardiac ablation, pacemaker, splenectomy, rhinoplasty, rectal reconstruction with gangrene, right knee arthroscopy, EGD, colonoscopy, right shoulder replacement. Anxiety and depression. SOCIAL HISTORY: Lives alone. Former smoker. No alcohol. PHYSICAL EXAMINATION: Temp 99, pulse rate 115 to 150, respiratory 16 to 20, blood pressure is 140s over 90s, O2 is 96% on room air. LUNGS: Show rales at the bases. CARDIOVASCULAR: Irregular rate and rhythm, rapid ventricular response. GI: Soft. HEMATOLOGY: Negative Homans. PSYCH: Fair mood and affect. Labs were reviewed. ASSESSMENT: 1. Atrial flutter, atrial fibrillation, rapid ventricular response. 2. History of chronic obstructive pulmonary disease. 3. Congestive heart failure. 4. Oxygen-dependent chronic obstructive pulmonary disease. 5. Hypothyroidism. 6. Arrhythmia, atrial fibrillation, rapid ventricular response. Cardiology consult. Cardizem drip. Resume home medications. Please see further orders. Check thyroid levels. MMODL / IJN: [id number] /
[2020-01-20] MEDS: oxyCODONE-APAP 5-325MG 1 EACH TAB PO PRN ×4 (02:44→18:08)
[2020-01-20 06:09] LABS: Glucose,Whole Blood 109 mg/dL (75-99)
[2020-01-20 06:34] LABS: ALT 52 U/L (4-34); AST 48 U/L (14-36); African American GFR (CKD) >90 (>60 ml/min/1.73 sqM); Albumin 3.4 g/dL (3.5-5.0); Alkaline Phosphatase 30 U/L (38-126); Blood Urea Nitrogen 20 mg/dL (7-17); Calcium 8.9 mg/dL (8.4-10.2); Carbon Dioxide 33 mmol/L (22-30); Chloride 103 mmol/L (98-107); Glucose 115 mg/dL (74-99); Non-African American GFR(CKD) 88 (>60 ml/min/1.73 sqM); Potassium 4.3 mmol/L (3.5-5.1); Total Bilirubin 0.4 mg/dL (0.2-1.3); Total Protein 6.2 g/dL (6.3-8.2)
[2020-01-20 06:44] LABS: Basophils % (A) 0 %; Eosinophils # (A) 0.2 k/uL (0-0.7); Eosinophils % (A) 2 %; HCT 40.4 % (34.0-46.0); HGB 12.3 gm/dL (11.4-16.0); Hypochromasia Marked; Lymphocytes # (A) 4.4 k/uL (1.0-4.8); Lymphocytes % (A) 41 %; MCH 27.7 pg (25.0-35.0); MCHC 30.4 g/dL (31.0-37.0); Mean Platelet Volume 7.7; Monocytes # (A) 0.8 k/uL (0-1.0); Monocytes % (A) 8 %; Neutrophils % (A) 47 %; Platelet Count 370 k/uL (150-450); RBC 4.44 m/uL (3.80-5.40); RDW 14.2 % (11.5-15.5); WBC 10.8 k/uL (3.8-10.6)
[2020-01-20 06:46] LABS: Anion Gap 4 mmol/L; Sodium 140 mmol/L (137-145)
[2020-01-20] MEDS ORDERED: ADVAIR INHALATION SCH (08:00)
[2020-01-20] MEDS: SYMBICORT 80-4.5 MCG INHALER INHALATION SCH ×2 (08:45→20:03)
[2020-01-20] MEDS: clonazePAM 1 MG TAB PO SCH ×4 (08:48→21:06)
[2020-01-20] MEDS: PANTOPRAZOLE 40 MG TABLET PO SCH (08:48)
[2020-01-20] MEDS: levETIRAcetam 500 MG TAB PO SCH ×2 (08:49→19:34)
[2020-01-20] MEDS: ARIPiprazole 2 MG TAB PO SCH (08:49)
[2020-01-20] MEDS: NADOLOL 20 MG TAB PO SCH (08:49)
[2020-01-20] MEDS: LEVOTHYROXINE 75 MCG TAB PO SCH (08:49)
[2020-01-20] MEDS: ACYCLOVIR 200 MG CAP PO SCH ×2 (08:49→19:34)
[2020-01-20] MEDS: METOLAZONE 2.5 MG TAB PO SCH (08:49)
[2020-01-20] MEDS: CHOLECALCIFEROL 1,000 UNIT TAB PO SCH (08:49)
[2020-01-20] MEDS: MECLIZINE 12.5 MG TAB PO SCH ×2 (08:50→19:35)
[2020-01-20] MEDS: MAGNESIUM OXIDE 400 MG TAB PO SCH (08:50)
[2020-01-20] MEDS: POTASSIUM CHLORIDE ER 20 MEQ TAB.ER PO SCH ×3 (08:50→21:06)
[2020-01-20] MEDS: CALCIUM CARB-VIT D 500MG-200UN 1 EACH TAB PO SCH (08:50)
[2020-01-20] MEDS: FLECAINIDE 50 MG TAB PO SCH ×2 (08:50→19:35)
[2020-01-20] MEDS: predniSONE 10 MG TAB PO SCH (08:50)
[2020-01-20] MEDS: FLUoxetine HCL 20 MG CAP PO SCH ×3 (08:50→21:06)
[2020-01-20] MEDS: AMMONIUM LACTATE 12% LOTION 225 GM BTL TOPICAL SCH ×2 (08:54→19:37)
[2020-01-20] MEDS: DICLOFENAC SODIUM GEL 100 GM TUBE TOPICAL SCH ×2 (08:54→19:35)
[2020-01-20] MEDS ORDERED: OMEGA PO SCH (09:00)
[2020-01-20] MEDS ORDERED: FATTY ACIDS PO SCH (09:00)
[2020-01-20] MEDS ORDERED: FUROSEMIDE 80 MG TAB PO SCH (09:00)
[2020-01-20] MEDS ORDERED: FISH OIL PO SCH (09:00)
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
[2020-01-20 11:09] LABS: Glucose,Whole Blood 145 mg/dL (75-99)
--- NOTE | 2020-01-20 12:27 | CDI ---
Documentation Clarification Form Date: 01/20/2020 12:20:35 PM From: Sharita Sutheralnd RN, CCDS Admit Date: 01/19/2020 01:20:00 PM Patient Name: Zari Mae Visit Number: [id number] ATTENTION: The Clinical Documentation Specialists (CDI) and [facility] Coding Staff appreciate your assistance in clarifying documentation. Please respond to the clarification below the line at the bottom and electronically sign. The CDI & [facility] Coding staff will review the response and follow-up if needed. Please note: Queries are made part of the Legal Health Record. If you have any questions, please contact the author of this message via ITS. Dr. James Mackay Atrial Flutter is documented in the H&P and Cardiology Consult and requires further specificity. History/Risk factors: Paroxysmal Atrial Fib, COPD O2 dependant, PPM, diastolic CHF, hypothyroidism Clinical Indicators: 01/19 Cardiology Consult: "Atrial flutter with moderately rapid ventricular response EKG/telemetry: Atrial Flutter 2:1 Treatment: 01/18 Cardizem Gtt at 5 mg/hr Corgard 40 mg po QD Tamabacor 100 mg PO BID Xarelto 20 mg PO Q HS Consults: Cardiology In your professional opinion, in order to capture the severity of condition; can you please clarify the type of Atrial Flutter if known? Typical/Type I Atypical/Type II Other, please specify Unable to determine (Last Revision: November 2017) MTDD
--- NOTE | 2020-01-20 12:42 | CDI ---
Documentation Clarification Form Date: 01/20/2020 12:28:14 PM From: Sharita Sutherland RN, CCDS Admit Date: 01/19/2020 01:20:00 PM Patient Name: Zari Mae Visit Number: [id number] ATTENTION: The Clinical Documentation Specialists (CDI) and [facility] Coding Staff appreciate your assistance in clarifying documentation. Please respond to the clarification below the line at the bottom and electronically sign. The CDI & [facility] Coding staff will review the response and follow-up if needed. Please note: Queries are made part of the Legal Health Record. If you have any questions, please contact the author of this message via ITS. Dr. James Mackay Diastolic CHF has been documented in the medical record and requires further specificity with acuity. History/Risk Factors: CHF, AF, PPM, Asthma, Hypothyroidism, PE, Sleep apnea, COPD, GERD Clinical Indicators: 01/18 H&P: "Congestive heart failure." 01/19 Cardiology Consult: "congestive heart failure, likely diastolic in nature, could also be secondary to rapid Atrial flutter." BNP: 1080 07/12/2018 Echocardiogram Results: EF 40-50%, mild concentric LVH, LA moderately dilated 01/18 Chest X Ray:".Pulmonary vasculature may be slightly cephalized suggesting possible mild pulmonary vascular congestion. No pulmonary edema." Treatment: Lasix 80 mg PO QD x 1 dose changed to Lasix 40mg IVP Q 12 hrs Zaroxolyn 2.5 mg PO QD Corgard 40 mg Po QD In your professional opinion, can you please clarify the acuity of CHF if known? Acute Diastolic Heart Failure Chronic Diastolic Heart Failure Acute on Chronic Diastolic Heart Failure Unable to Determine Other, please specify (Last Revision: November 2017) MTDD
--- NOTE | 2020-01-20 12:59 | CDI ---
Documentation Clarification Form Date: 01/20/2020 12:43:05 PM From: Sharita Sutherland RN, CCDS Admit Date: 01/19/2020 01:20:00 PM Patient Name: Zari Mae Visit Number: [id number] ATTENTION: The Clinical Documentation Specialists (CDI) and [facility] Coding Staff appreciate your assistance in clarifying documentation. Please respond to the clarification below the line at the bottom and electronically sign. The CDI & [facility] Coding staff will review the response and follow-up if needed. Please note: Queries are made part of the Legal Health Record. If you have any questions, please contact the author of this message via ITS. Dr. James Mackay History/Risk Factors: OAS, COPD, PAF, SVT, CHF Tobacco use: former smoker Home oxygen: 4l OTC, noncompliance with CPAP for sleep apnea Clinical Indicators: 01/18 H&P: "Oxygen-dependent chronic obstructive pulmonary disease." Vital signs: Temp 99, HR 114, RR 16, B/P 143/95, Spo2 96% 4L NC Pulse oximetry: monitoring per unit protocol 01/18 H&P: Lung/Breathing assessment: "LUNGS: Show rales at the bases." Treatment: Breathing TX; Symbicort 2 puff BID O2: 4L NC In your professional opinion, can you please clarify if these findings signify one of the following conditions? Chronic Hypoxic Respiratory Failure Chronic Hypercapnic Respiratory Failure Other Diagnosis, please specify Unable to determine (Last Query Form Revision: April 2019) MTDD
--- NOTE | 2020-01-20 14:12 | P.PN ---
Subjective Progress Note Date: 01/20/20 This is a 74-year-old female admitted with atrial flutter, chest pain and multiple other medical issues. Maintained on IV cardiac exam with telemetry reporting the pace, underlying atrial flutter, heart rate now 80s to 100s. Earlier this morning patient stated had left chest discomfort. Maintaining O2 s ats in the 90s on 4 L nasal cannula. Evaluated by cardiology, discussing stress test potentially for tomorrow. Echo pending. Currently denies chest pain, palpitations. Objective - Vital Signs Vital signs: Vital Signs Temp 98.3 F 01/20/20 02:53 Pulse 95 01/20/20 02:53 Resp 18 01/20/20 02:53 BP 98/53 01/20/20 02:53 Pulse Ox 97 01/20/20 02:53 Intake & Output 01/19/20 01/20/20 01/20/20 18:59 06:59 18:59 Intake Total 180 Balance 180 Weight 113.398 kg 113.6 kg Intake: Oral 180 Other: Voiding Method Toilet Toilet Diaper Diaper # Voids 1 1 - Exam PHYSICAL EXAM: VITAL SIGNS: [As above] GENERAL: Sitting up in bed, no acute distress HEENT: Conjunctivae normal. eyes normal. Oral mucosa moist NECK: No JVD. No thyroid enlargement. No LNs CARDIOVASCULAR: S1, S2, irregular. No murmur RESPIRATION: Breath sounds diminished in the bases. No rhonchi or crackles. No bronchial breathing. ABDOMEN: Soft, nontender . No guarding. no masses palpable. No ascites, No hepatosplenomegaly.Bowel sounds heard. LEGS: Minimal edema. no clubbing, no calf tenderness. PSYCHIATRY: Alert and oriented X3, mood and affect normal. NERVOUS SYSTEM: Cranial N 2-12 grossly normal. Moves all 4 limbs. No focal deficits. Strength and sensation grossly intact.. Skin: no rash - Labs CBC & Chem 7: 01/20/20 06:08 01/20/20 06:08 Labs: Abnormal Lab Results - Last 24 Hours (Table) 01/19/20 01/19/20 01/19/20 Range/Units 10:32 16:33 20:26 WBC (3.8-10.6) k/uL MCHC (31.0-37.0) g/dL Carbon Dioxide (22-30) mmol/L BUN (7-17) mg/dL Glucose (74-99) mg/dL POC Glucose (mg/dL) 159 H 148 H (75-99) mg/dL AST (14-36) U/L ALT (4-34) U/L Alkaline Phosphatase (38-126) U/L Total Protein (6.3-8.2) g/dL Albumin (3.5-5.0) g/dL TSH <0.015 L (0.465-4.680) mIU/L 01/20/20 01/20/20 01/20/20 Range/Units 06:08 06:08 06:08 WBC 10.8 H (3.8-10.6) k/uL MCHC 30.4 L (31.0-37.0) g/dL Carbon Dioxide 33 H (22-30) mmol/L BUN 20 H (7-17) mg/dL Glucose 115 H (74-99) mg/dL POC Glucose (mg/dL) 109 H (75-99) mg/dL AST 48 H (14-36) U/L ALT 52 H (4-34) U/L Alkaline Phosphatase 30 L (38-126) U/L Total Protein 6.2 L (6.3-8.2) g/dL Albumin 3.4 L (3.5-5.0) g/dL TSH (0.465-4.680) mIU/L 01/20/20 Range/Units 11:07 WBC (3.8-10.6) k/uL MCHC (31.0-37.0) g/dL Carbon Dioxide (22-30) mmol/L BUN (7-17) mg/dL Glucose (74-99) mg/dL POC Glucose (mg/dL) 145 H (75-99) mg/dL AST (14-36) U/L ALT (4-34) U/L Alkaline Phosphatase (38-126) U/L Total Protein (6.3-8.2) g/dL Albumin (3.5-5.0) g/dL TSH (0.465-4.680) mIU/L Assessment and Plan Assessment: Atrial flutter, atrial fibrillation, RVR Chest pain, troponins negative, atypical as per cardiology, potential stress test pending Acute CHF exacerbation, diastolic dysfunction Chronic hypoxic respiratory failure, wears 4 L nasal cannula O2 at home Obstructive sleep apnea, does not wear CPAP at home COPD hypothyroidism Chronic Paroxysmal atrial fibrillation History of permanent pacemaker implantation Hypertension Hyperlipidemia Seizure disorder Anxiety Depression Plan: Continue on current medication regime ,monitoring and symptomatic treatment. Antiarrhythmics, diuretics as per cardiology. Echo pending. Potential stress test tomorrow as per cardiology. The impression and plan of care has been dictated as directed. : I performed a history and examination of this patient, discussed the same with the dictator. I agree with the dictator's note ,documented as a scribe. Any additional findings or plans will be noted.
[2020-01-20 16:50] LABS: Glucose,Whole Blood 146 mg/dL (75-99)
--- NOTE | 2020-01-20 17:32 | ECHOF ---
Referral Reason:atrial flutter MEASUREMENTS -------- HEIGHT: 165.1 cm WEIGHT: 113.4 kg BP: 98/53 IVSd: 1.8 cm (0.6 - 1.1) LVIDd: 4.5 cm (3.9 - 5.3) LVPWd: 1.7 cm (0.6 - 1.1) IVSs: 2.2 cm LVIDs: 3.6 cm LVPWs: 1.6 cm RVIDd: 3.7 cm (< 3.3) LAESV Index (A-L): 18.73 ml/m Ao Diam: 2.7 cm (2.0 - 3.7) AV Cusp: 1.9 cm (1.5 - 2.6) EPSS: 0.6 cm RAP: 5.00 mmHg RVSP: 32.13 mmHg MV EF SLOPE: 40.51 mm/s (70 - 150) MV EXCURSION: 18.05 mm (> 18.000) FINDINGS -------- The rhythm appears to be atrial flutter with RVR. This was a technically difficult study with suboptimal apical views. The left ventricular size is normal. There is moderate concentric left ventricular hypertrophy. O verall left ventricular systolic function is mild-moderately impaired with, an EF between 40 - 45 %. Diastolic function not estimated due to A FLUTTER The right ventricle is moderately enlarged. Normal LA size by volume 22+/-6 ml/m2. The right atrium was not well visualized. 5.0mg of Lumason was utilized for enhancement of images Interatrial and interventricular septum intact. There is no evidence of aortic regurgitation. There is no evidence of aortic stenosis. Mild mitral regurgitation is present. Mild tricuspid regurgitation present. There is mild pulmonary hypertension. The right ventricular systolic pressure, as measured by Doppler, is 32.13mmHg. The pulmonic valve is normal. The aortic root size is normal. IVC Not well visulized. There is no pericardial effusion. CONCLUSIONS -------- 1. The rhythm appears to be atrial flutter with RVR. 2. This was a technically difficult study with suboptimal apical views. 3. The left ventricular size is normal. 4. There is moderate concentric left ventricular hypertrophy. 5. Overall left ventricular systolic function is mild-moderately impaired with, an EF between 40 - 45 %. 6. Diastolic function not estimated due to A FLUTTER 7. The right ventricle is moderately enlarged. 8. Normal LA size by volume 22+/-6 ml/m2. 9. The right atrium was not well visualized. 10. 5.0mg of Lumason was utilized for enhancement of images 11. Interatrial and interventricular septum intact. 12. There is no evidence of aortic regurgitation. 13. There is no evidence of aortic stenosis. 14. Mild mitral regurgitation is present. 15. Mild tricuspid regurgitation present. 16. There is mild pulmonary hypertension. 17. The right ventricular systolic pressure, as measured by Doppler, is 32.13mmHg. 18. The pulmonic valve is normal. 19. The aortic root size is normal. 20. IVC Not well visulized. 21. There is no pericardial effusion. SENIOR LICENSING MANAGER: Tanya Paez RDCS
[2020-01-20] MEDS: SODIUM CHLORIDE 0.9% 1,000 ML IV SCH (18:10)
[2020-01-20] MEDS: RIVAROXABAN 20 MG TAB PO SCH (19:34)
[2020-01-20] MEDS: ATORVASTATIN 20 MG TAB PO SCH (19:34)
[2020-01-20] MEDS: FUROSEMIDE 10 MG/ML 4 ML VIAL IV SCH (19:35)
[2020-01-20 20:32] LABS: Glucose,Whole Blood 124 mg/dL (75-99)
[2020-01-21] MEDS: LEVOTHYROXINE 75 MCG TAB PO SCH (04:30)
[2020-01-21] MEDS: oxyCODONE-APAP 5-325MG 1 EACH TAB PO PRN ×4 (04:30→21:54)
[2020-01-21 06:00] LABS: Glucose,Whole Blood 133 mg/dL (75-99)
[2020-01-21] MEDS ORDERED: CAFFEINE CITRATE 60 MG/3 ML VIAL IV PRN ×2 (07:47→08:57)
[2020-01-21] MEDS ORDERED: AMINOPHYLLINE 500 MG/20 ML VIAL IV PRN ×2 (07:47→08:57)
[2020-01-21] MEDS ORDERED: SODIUM CHLORIDE 0.9% IV ONE (08:15)
[2020-01-21] MEDS ORDERED: DIPYRIDAMOLE IV ONE (08:15)
[2020-01-21] MEDS: SYMBICORT 80-4.5 MCG INHALER INHALATION SCH ×2 (08:39→19:58)
[2020-01-21] MEDS ORDERED: REGADENOSON 0.4 MG/5 ML SYRINGE IV ONE (08:57)
[2020-01-21] MEDS: METOLAZONE 2.5 MG TAB PO SCH (11:41)
[2020-01-21] MEDS: levETIRAcetam 500 MG TAB PO SCH ×2 (11:41→21:43)
[2020-01-21] MEDS: MAGNESIUM OXIDE 400 MG TAB PO SCH (11:41)
[2020-01-21] MEDS: PANTOPRAZOLE 40 MG TABLET PO SCH (11:41)
[2020-01-21] MEDS: predniSONE 10 MG TAB PO SCH (11:41)
[2020-01-21] MEDS: NADOLOL 20 MG TAB PO SCH (11:41)
[2020-01-21] MEDS: clonazePAM 1 MG TAB PO SCH ×4 (11:42→21:44)
[2020-01-21] MEDS: ACYCLOVIR 200 MG CAP PO SCH (11:42)
[2020-01-21] MEDS: MECLIZINE 12.5 MG TAB PO SCH (11:42)
[2020-01-21] MEDS: FLUoxetine HCL 20 MG CAP PO SCH ×3 (11:42→21:44)
[2020-01-21] MEDS: FLECAINIDE 50 MG TAB PO SCH ×2 (11:42→21:44)
[2020-01-21] MEDS: POTASSIUM CHLORIDE ER 20 MEQ TAB.ER PO SCH ×3 (11:42→21:44)
[2020-01-21] MEDS: ARIPiprazole 2 MG TAB PO SCH (11:42)
[2020-01-21] MEDS: DICLOFENAC SODIUM GEL 100 GM TUBE TOPICAL SCH ×2 (11:43→21:44)
[2020-01-21] MEDS: FUROSEMIDE 10 MG/ML 4 ML VIAL IV SCH (11:43)
[2020-01-21 11:44] LABS: Glucose,Whole Blood 140 mg/dL (75-99)
[2020-01-21] MEDS: CALCIUM CARB-VIT D 500MG-200UN 1 EACH TAB PO SCH (11:52)
[2020-01-21] MEDS: CHOLECALCIFEROL 1,000 UNIT TAB PO SCH (11:52)
[2020-01-21] MEDS: AMMONIUM LACTATE 12% LOTION 225 GM BTL TOPICAL SCH ×2 (11:53→21:43)
--- NOTE | 2020-01-21 11:55 | NM ---
"EXAMINATION TYPE: NM stress lexiscan cardiolite DATE OF EXAM: 01/21/2020 COMPARISON: Prior nuclear medicine stress test November 14, 2016. HISTORY: History of diabetes, lung disease, and prior tobacco use presents with chest pain palpitatio ns and difficulty in breathing. TECHNIQUE: After the intravenous administration of 10.1 mCi Tc 99m Sestamibi - Cardiolite resting SP ECT images acquired 55 minutes post injection. The patient received 0.4mg Lexiscan, 27.1 mCi Tc 99m Sestamibi - Stress images obtained [address] injection FINDINGS: Review of stress and rest SPECT images demonstrates diminished color intensity involving the inferior left ventricular wall on stress versus rest images particularly mid to apical segments in which acut e ischemia cannot be excluded. Gated analysis shows overall diminished ejection fraction measured be tween 25 and 40% with overall diffuse poor contractility. IMPRESSION: Abnormal study, cannot exclude areas of acute ischemia. Consider further mastication with direct catheter angiogram based on clinical correlation. A Yellow level critical message alert has been initiated for James Mackay MD~[id number] via the [employer] | Critical Results System on 01/21/2020 11:53 AM. This message alert has been sent to James leon MD~[id number] via the preferences provided by the clinician for the receipt of Radiology Critical F indings. Message ID [id number]."
[2020-01-21] MEDS ORDERED: ASPIRIN 325 MG TAB PO STA (13:57)
[2020-01-21] MEDS ORDERED: ALPRAZolam 0.5 MG TAB PO PRN (13:57)
[2020-01-21] MEDS ORDERED: ATORVASTATIN 80 MG TAB PO STA (13:57)
[2020-01-21] MEDS ORDERED: ALPRAZolam 0.25 MG TAB PO PRN (13:57)
[2020-01-21] MEDS ORDERED: SODIUM CHLORIDE 0.9% 1,000 ML in EMPTY BAG 1 BAG IV ONE (13:57)
[2020-01-21] MEDS ORDERED: NITROGLYCERIN SL TABS 0.4 MG TAB SUBLINGUAL PRN (13:57)
--- NOTE | 2020-01-21 14:43 | EST ---
EXERCISE STRESS AGE: 74 SEX: F HT: 5'5" WT: 246 lbs. PROTOCOL: Lexiscan Cardiolite STAGE: DURATION OF EXERCISE: HEART RATE REST: 113 BLOOD PRESSURE REST: 111/81 MAXIMUM HEART RATE ACHIEVED: 125 MAXIMUM BLOOD PRESSURE: 120/84 85% MPHR: 126 100% MPHR: 148 METS: INDICATIONS: Chest pain, palpitations. CLINICAL INFORMATION: Baseline heart rate 113 beats per minute. Baseline blood pressure 111/81 mmHg. Baseline 12-lead ECG showed baseline artifact but later showed typical atrial flutter with RVR. Patient received Lexiscan infusion per protocol. No significant change in heart rate or blood pressure. ST segments could not be interpreted on account of baseline atrial flutter. Nuclear portion will be reported separately. MMODL / IJN: [id number] /
--- NOTE | 2020-01-21 14:54 | P.PN ---
Subjective Progress Note Date: 01/21/20 This is a pleasant 74-year-old female who follows with Dr. Hong in the office. She has a past medical history significant for paroxysmal atrial fibrillation, GERD, hyperlipidemia, sleep apnea, prior PE, fibromyalgia, prior pacemaker implantation. Presented to the hospital with symptoms of chest pain with associated shortness of breath and palpitations. Her pain is located just beneath the left breast area, it is sharp in nature, does not worsen with deep breathing or on palpation of the chest. EKG on presentation here showed a ventricular paced rhythm, underlying atrial flutter. Subsequent EKG shows atrial flutter with moderately rapid ventricular response. Chest x-ray shows cardiomegaly, pulmonary vascular congestion. Blood pressure 132/72 with a heart rate in 80s to 90s, temperature 98.3. 98% on 4 L of oxygen. White blood cell count 12.3 on admission, 10.8 this morning, hemoglobin 12.3, platelet count 370. Sodium 140, potassium 4.3, BUN 20, creatinine 0.6. AST 48 ALT 52, alk phos 30, troponin 0.012, BNP 1080. TSH 0.015. Patient was initiated on IV Cardizem in the emergency room, patient is also on nadolol, Zaroxolyn, Xarelto 20 mg daily, oral diuretics. Most recent echocardiogram with Doppler study was performed June 2018 which revealed an ejection fraction of 45-50%. At the time of my examination this morning, patient continues to complain of a sharp pain in the left side of her chest just below the breast area. Continues to be in atrial flutter with a heart rate of 80 this morning. 01/21/2020 patient was seen and examined this morning, overall her breathing is stable, continues to complain of some pleuritic type chest pain. We will schedule her for a Lexiscan stress test today. Objective - Vital Signs Vital signs: Vital Signs Temp 98.0 F 01/21/20 08:00 Pulse 72 01/21/20 08:00 Resp 18 01/21/20 08:00 BP 128/86 01/21/20 08:00 Pulse Ox 97 01/21/20 08:00 Intake & Output 01/20/20 01/21/20 01/21/20 18:59 06:59 18:59 Intake Total 180 120 Balance 180 120 Weight 111.584 kg 111.58 kg Intake: Oral 180 120 Other: Voiding Method Toilet Toilet Toilet Diaper Diaper Diaper # Voids 1 1 1 # Bowel Movements 0 - Exam PHYSICAL EXAMINATION: GENERAL: 74-year-old female in no acute distress at the time of my examination HEENT: Head is atraumatic, normocephalic. Pupils equal, round. Sclera anicteric. Conjunctiva are clear. Mucous membranes of the mouth are moist. Neck is supple. There is no elevated jugular venous pressure. no carotid bruit is heard. HEART EXAMINATION: [Heart S1, S2 irregularly irregular. No murmur or gallop heard.] CHEST EXAMINATION:[ Lungs are clear with improvement in air entry to the bases bilaterally. No chest wall tenderness is noted on palpation or with deep breathing.] ABDOMEN: [ Soft, nontender. Bowel sounds are heard. No organomegaly noted]. EXTREMITIES:[ 2+ peripheral pulses with trace evidence of peripheral edema, right leg greater than left, no calf tenderness noted]. NEUROLOGIC [patient is awake, alert and oriented 3. - Labs CBC & Chem 7: 01/20/20 06:08 01/20/20 06:08 Labs: Abnormal Lab Results - Last 24 Hours (Table) 01/20/20 01/20/20 01/21/20 Range/Units 16:49 20:30 05:59 POC Glucose (mg/dL) 146 H 124 H 133 H (75-99) mg/dL 01/21/20 Range/Units 11:42 POC Glucose (mg/dL) 140 H (75-99) mg/dL Assessment and Plan Plan: Assessment and plan #1 chest pain, atypical for acute coronary syndrome. Initial troponin negative. EKG shows atrial flutter with moderately rapid ventricular response. patient underwent a cardiac catheterization in 2012 which did not reveal any significant obstructive coronary artery disease. Lexiscan stress test performed in 2017 revealed small area of stress-induced reversible ischemia involving the apical lateral myocardium, felt to be artifactual #2 atrial flutter with moderately rapid ventricular response # 3 history of paroxysmal H or fibrillation on Xarelto for anticoagulation #4 history of prior pacemaker implantation #5 hypertension #6 hyperlipidemia #7 congestive heart failure, likely diastolic in nature, could also be secondary to rapid atrial flutter #8 mildly abnormal liver enzymes, could be secondary to congestion #9 hypothyroidism, TSH level 0.015 Plan Echocardiac gram with Doppler study revealed an ejection fraction of 40-45%. We will discontinue the IV Lasix and start the patient back on oral diuretics. If the stress test comes back positive, patient will need to undergo cardiac catheterization, if the stress test is negative she may be able to be discharged home tomorrow. DNP note has been reviewed, I agree with a documented findings and plan of care. Patient was seen and examined.
--- NOTE | 2020-01-21 15:45 | P.PN ---
Subjective Progress Note Date: 01/21/20 This is a 74-year-old female admitted with atrial flutter, chest pain and multiple other medical issues. Maintained on IV cardiac exam with telemetry reporting the pace, underlying atrial flutter, heart rate now 80s to 100s. Earlier this morning patient stated had left chest discomfort. Maintaining O2 s ats in the 90s on 4 L nasal cannula. Evaluated by cardiology, discussing stress test potentially for tomorrow. Echo pending. Currently denies chest pain, palpitations. 01/21/20 NPO , scheduled for nuclear stress test today. Currently denies chest pain, palpitations or increased shortness of breath. Echo reported EF 40-45%, diastolic function not estimated secondary to a flutter, mild pulmonary hypertension. Vital signs stable, maintaining O2 sats in the 90s on 4 L nasal cannula. Objective - Vital Signs Vital signs: Vital Signs Temp 98 F 01/21/20 04:00 Pulse 78 01/21/20 04:00 Resp 18 01/21/20 04:00 BP 106/73 01/21/20 04:00 Pulse Ox 97 01/21/20 04:00 Intake & Output 01/20/20 01/21/20 01/21/20 18:59 06:59 18:59 Intake Total 180 Balance 180 Weight 111.584 kg Intake: Oral 180 Other: Voiding Method Toilet Toilet Diaper Diaper # Voids 1 1 - Exam PHYSICAL EXAM: VITAL SIGNS: [As above] GENERAL: Sitting up in bed, no acute distress HEENT: Conjunctivae normal. eyes normal. Oral mucosa moist NECK: No JVD. No thyroid enlargement. No LNs CARDIOVASCULAR: S1, S2, irregular. No murmur RESPIRATION: Breath sounds diminished in the bases. No rhonchi or crackles. ABDOMEN: Soft, nontender . No guarding. no masses palpable. Positive Bowel sounds. LEGS: Minimal edema. no clubbing, no calf tenderness. PSYCHIATRY: Alert and oriented X3, mood and affect normal. NERVOUS SYSTEM: Cranial N 2-12 grossly normal. Moves all 4 limbs. No focal deficits. Strength and sensation grossly intact.. Skin: no rash - Labs CBC & Chem 7: 01/20/20 06:08 01/20/20 06:08 Labs: Abnormal Lab Results - Last 24 Hours (Table) 01/20/20 01/20/20 01/20/20 Range/Units 11:07 16:49 20:30 POC Glucose (mg/dL) 145 H 146 H 124 H (75-99) mg/dL 01/21/20 Range/Units 05:59 POC Glucose (mg/dL) 133 H (75-99) mg/dL Assessment and Plan Assessment: Atrial flutter, atrial fibrillation, RVR Chest pain, troponins negative, atypical as per cardiology, stress test pending Acute CHF exacerbation, diastolic dysfunction Chronic hypoxic respiratory failure, wears 4 L nasal cannula O2 at home Obstructive sleep apnea, does not wear CPAP at home COPD hypothyroidism Chronic Paroxysmal atrial fibrillation History of permanent pacemaker implantation Hypertension Hyperlipidemia Seizure disorder Anxiety Depression Plan: Continue on current medication regime ,monitoring and symptomatic treatment. Stress test pending. Antiarrhythmics, diuretics as per cardiology. The impression and plan of care has been dictated as directed. : I performed a history and examination of this patient, discussed the same with the dictator. I agree with the dictator's note ,documented as a scribe. Any additional findings or plans will be noted.
[2020-01-21 16:55] LABS: Glucose,Whole Blood 148 mg/dL (75-99)
--- NOTE | 2020-01-21 16:55 | US ---
EXAMINATION TYPE: US venous doppler duplex LE RT DATE OF EXAM: 01/21/2020 4:21 PM COMPARISON: NONE CLINICAL HISTORY: 74-year-old female DVT. Pain SIDE PERFORMED: Right TECHNIQUE: The lower extremity deep venous system is examined utilizing real time linear array sonog mayela with graded compression, doppler sonography and color-flow sonography. FINDINGS: VESSELS IMAGED: External Iliac Vein (EIV) Common Femoral Vein Deep Femoral Vein Greater Saphenous Vein * Femoral Vein Popliteal Vein Small Saphenous Vein * Proximal Calf Veins (* superficial vessels) Right Leg: Negative for DVT IMPRESSION: No evidence for DVT within the right lower extremity imaged from the groin to the upper calf.
[2020-01-21] MEDS: SODIUM CHLORIDE 0.9% 1,000 ML IV SCH (17:28)
[2020-01-21 20:31] LABS: Glucose,Whole Blood 194 mg/dL (75-99)
[2020-01-21] MEDS ORDERED: AMIODARONE 200 MG TAB PO SCH (21:00)
[2020-01-21] MEDS: RIVAROXABAN 20 MG TAB PO SCH (21:44)
[2020-01-21] MEDS: ATORVASTATIN 20 MG TAB PO SCH (21:44)
[2020-01-22] MEDS: oxyCODONE-APAP 5-325MG 1 EACH TAB PO PRN ×4 (03:09→19:15)
[2020-01-22] MEDS: LEVOTHYROXINE 75 MCG TAB PO SCH (05:26)
[2020-01-22 06:11] LABS: Glucose,Whole Blood 130 mg/dL (75-99)
[2020-01-22 07:31] LABS: Basophils % (A) 0 %; Eosinophils # (A) 0.1 k/uL (0-0.7); Eosinophils % (A) 1 %; HCT 41.7 % (34.0-46.0); HGB 13.2 gm/dL (11.4-16.0); Hypochromasia Moderate; Lymphocytes % (A) 31 %; MCH 27.8 pg (25.0-35.0); MCHC 31.6 g/dL (31.0-37.0); MCV 88.1 fL (80.0-100.0); Mean Platelet Volume 7.9; Monocytes # (A) 1.1 k/uL (0-1.0); Monocytes % (A) 9 %; Neutrophils # (A) 7.2 k/uL (1.3-7.7); Neutrophils % (A) 56 %; Platelet Count 394 k/uL (150-450); RBC 4.74 m/uL (3.80-5.40)
[2020-01-22 07:42] LABS: Calcium 9.4 mg/dL (8.4-10.2); Potassium 3.7 mmol/L (3.5-5.1)
[2020-01-22] MEDS: SYMBICORT 80-4.5 MCG INHALER INHALATION SCH ×2 (08:29→19:40)
[2020-01-22] MEDS: PANTOPRAZOLE 40 MG TABLET PO SCH (08:41)
[2020-01-22] MEDS: POTASSIUM CHLORIDE ER 20 MEQ TAB.ER PO SCH ×3 (08:41→21:36)
[2020-01-22] MEDS: CHOLECALCIFEROL 1,000 UNIT TAB PO SCH (08:41)
[2020-01-22] MEDS: FUROSEMIDE 80 MG TAB PO SCH (08:41)
[2020-01-22] MEDS: levETIRAcetam 500 MG TAB PO SCH ×2 (08:41→21:36)
[2020-01-22] MEDS: predniSONE 10 MG TAB PO SCH (08:41)
[2020-01-22] MEDS: FLUoxetine HCL 20 MG CAP PO SCH ×3 (08:41→21:36)
[2020-01-22] MEDS: FLECAINIDE 50 MG TAB PO SCH ×2 (08:41→21:36)
[2020-01-22] MEDS: CALCIUM CARB-VIT D 500MG-200UN 1 EACH TAB PO SCH (08:42)
[2020-01-22] MEDS: MAGNESIUM OXIDE 400 MG TAB PO SCH (08:42)
[2020-01-22] MEDS: clonazePAM 1 MG TAB PO SCH ×4 (08:42→21:36)
[2020-01-22] MEDS: METOLAZONE 2.5 MG TAB PO SCH (08:46)
[2020-01-22] MEDS: MECLIZINE 12.5 MG TAB PO SCH ×2 (08:46→08:47)
[2020-01-22] MEDS: ACYCLOVIR 200 MG CAP PO SCH ×2 (08:47→21:36)
[2020-01-22] MEDS: NADOLOL 20 MG TAB PO SCH (08:47)
[2020-01-22] MEDS: ARIPiprazole 2 MG TAB PO SCH (08:48)
[2020-01-22] MEDS: AMMONIUM LACTATE 12% LOTION 225 GM BTL TOPICAL SCH ×2 (08:50→21:38)
[2020-01-22] MEDS ORDERED: LIDOCAINE 1% INJ 10MG/ML (20 ML MDV) ONE (10:16)
[2020-01-22] MEDS ORDERED: HEPARIN SODIUM 1,000 UN/ML (10ML VL) ONE (10:16)
[2020-01-22] MEDS ORDERED: VERAPAMIL 2.5 MG/ML 2 ML AMP ONE (10:16)
[2020-01-22] MEDS ORDERED: MIDAZOLAM 2 MG/2 ML VIAL IVP ONE ×2 (11:20→11:42)
[2020-01-22] MEDS ORDERED: LIDOCAINE 1% INJ 10MG/ML (20 ML MDV) SQ ONE (11:27)
[2020-01-22] MEDS ORDERED: IV FLUID CONTINUATION 600 ML IV ONE (11:43)
[2020-01-22] MEDS ORDERED: RX INFO: IV CONTRAST WAS GIVEN 1 EACH MISC MISCELLANE PRN (12:01)
[2020-01-22] MEDS ORDERED: IOPAMIDOL-370 125ML BTL INJ ONE (12:04)
--- NOTE | 2020-01-22 12:07 | P.PCN ---
Date of Procedure: 01/22/20 Operative Findings: CARDIAC CATHETERIZATION PERFORMING PHYSICIAN: Vamsi Leong MD, RPVI PROCEDURE PERFORMED: 1. Selective right and left coronary angiogram 2. Left heart catheterization INDICATION: This is a very pleasant 74-year-old female patient with hypertension and dyslipidemia who was admitted to the hospital with a chest discomfort and underwent myocardial perfusion imaging stress is and that showed reversible defect. Because of that heart catheterization was advised COMPLICATION: None APPROACH: Right common femoral artery LEVEL OF SEDATION: Moderate with sedation length of 39 PROCEDURE DESCRIPTION: After obtaining an informed consent, the patient was brought to cardiac lab support tech. Local anesthesia was performed using lidocaine subcutaneously. The right common femoral artery was cannulated using Seldinger technique, the guidewire passed easily, following that we advanced a 6 Russian sheath dilator assembly, the wire and dilator were removed and sheath was flushed. Selective right and left coronary angiogram using a 6-Russian JR4 and JL cathet ers. Following that we did left heart catheterization using 6-Russian pigtail catheter. The procedure was completed there was no complication. SELECTIVE CORONARY ANGIOGRAM: The right coronary artery: Is a large caliber vessel and a dominant vessel. Its angiographically normal. Distally bifurcates into PDA and PLV branches and both appears to be angiographically normal Left main: Is angiographically normal. Bifurcates into LCx and LAD The left circumflex: Is a large caliber vessel and a nondominant vessel. The left circumflex is angiographically normal and gives rises in the midportion into a large OM branch and distally gives rises into a second OM branch and both appeared to be angiographically normal The left anterior descending artery: Is a medium to large caliber vessel. The LAD is angiographically normal. LAD the soft tissue apex. The proximal portion gives rise into a large diagonal branch which seems to be angiographically normal HEMODYNAMICS: And the LVEDP was 12 mmHg without significant gradient across aortic valve CONCLUSION: 1. Normal coronary angiogram 2. Normal LVEDP POSTPROCEDURE MANAGEMENT: 1. Medical treatment 2. Follow-up with the patient
[2020-01-22] MEDS ORDERED: SODIUM CHLORIDE 0.9% 1,000 ML IV SCH (12:15)
[2020-01-22] MEDS: SODIUM CHLORIDE 0.9% 1,000 ML IV SCH (12:26)
[2020-01-22 12:45] LABS: Glucose,Whole Blood 186 mg/dL (75-99)
[2020-01-22] MEDS ORDERED: POTASSIUM CHLORIDE ER 20 MEQ TAB.ER PO STA (13:31)
--- NOTE | 2020-01-22 13:47 | P.PN ---
Subjective Progress Note Date: 01/22/20 This is a 74-year-old female admitted with atrial flutter, chest pain and multiple other medical issues. Maintained on IV cardiac exam with telemetry reporting the pace, underlying atrial flutter, heart rate now 80s to 100s. Earlier this morning patient stated had left chest discomfort. Maintaining O2 s ats in the 90s on 4 L nasal cannula. Evaluated by cardiology, discussing stress test potentially for tomorrow. Echo pending. Currently denies chest pain, palpitations. 01/21/20 NPO , scheduled for nuclear stress test today. Currently denies chest pain, palpitations or increased shortness of breath. Echo reported EF 40-45%, diastolic function not estimated secondary to a flutter, mild pulmonary hypertension. Vital signs stable, maintaining O2 sats in the 90s on 4 L nasal cannula. 01/22/2020 yesterday underwent Lexiscan stress test, abnormal reporting reversible defect. Scheduled for cardiac catheterization this morning. Currently no chest pain, palpitations or shortness of breath. Objective - Vital Signs Vital signs: Vital Signs Temp 97.8 F 01/22/20 03:42 Pulse 108 H 01/22/20 03:42 Resp 20 01/22/20 03:42 BP 110/55 01/22/20 03:42 Pulse Ox 97 01/22/20 03:42 Intake & Output 01/21/20 01/22/20 01/22/20 18:59 06:59 18:59 Intake Total 240 240 Balance 240 240 Weight 111.58 kg 111.2 kg Intake: Oral 240 240 Other: Voiding Method Toilet Toilet Diaper Diaper # Voids 1 1 # Bowel Movements 0 - Exam PHYSICAL EXAM: VITAL SIGNS: [As above] GENERAL: Sitting up in bed, no acute distress HEENT: Conjunctivae normal. eyes normal. Oral mucosa moist NECK: No JVD. No thyroid enlargement. No LNs CARDIOVASCULAR: S1, S2, irregular. No murmur RESPIRATION: Breath sounds diminished in the bases. No rhonchi or crackles. ABDOMEN: Soft, nontender . No guarding. no masses palpable. Positive Bowel sounds. LEGS: Minimal edema. no clubbing, no calf tenderness. PSYCHIATRY: Alert and oriented X3, mood and affect normal. NERVOUS SYSTEM: Cranial N 2-12 grossly normal. Moves all 4 limbs. No focal deficits. Strength and sensation grossly intact.. Skin: no rash - Labs CBC & Chem 7: 01/22/20 06:53 01/22/20 06:53 Labs: Abnormal Lab Results - Last 24 Hours (Table) 01/21/20 01/21/20 01/21/20 Range/Units 11:42 16:47 20:30 WBC (3.8-10.6) k/uL Monocytes # (0-1.0) k/uL Chloride (98-107) mmol/L Carbon Dioxide (22-30) mmol/L BUN (7-17) mg/dL Glucose (74-99) mg/dL POC Glucose (mg/dL) 140 H 148 H 194 H (75-99) mg/dL 01/22/20 01/22/20 01/22/20 Range/Units 06:10 06:53 06:53 WBC 13.0 H (3.8-10.6) k/uL Monocytes # 1.1 H (0-1.0) k/uL Chloride 96 L (98-107) mmol/L Carbon Dioxide 32 H (22-30) mmol/L BUN 29 H (7-17) mg/dL Glucose 128 H (74-99) mg/dL POC Glucose (mg/dL) 130 H (75-99) mg/dL Assessment and Plan Assessment: Atrial flutter, atrial fibrillation, RVR Chest pain, troponins negative, atypical as per cardiology, abnormal Lexiscan Acute CHF exacerbation, diastolic dysfunction Chronic hypoxic respiratory failure, wears 4 L nasal cannula O2 at home Obstructive sleep apnea, does not wear CPAP at home COPD hypothyroidism Chronic Paroxysmal atrial fibrillation History of permanent pacemaker implantation Hypertension Hyperlipidemia Seizure disorder Anxiety Depression Plan: Continue on current medication regime ,monitoring and symptomatic treatment. Completed cardiac catheterization revealing normal coronary angiogram, normal LVEDP with maximizing medical treatment recommended as per cardiology. Follow closely with cardiology. Discharge planning in progress. The impression and plan of care has been dictated as directed. : I performed a history and examination of this patient, discussed the same with the dictator. I agree with the dictator's note ,documented as a scribe. Any additional findings or plans will be noted.
[2020-01-22 16:33] LABS: Glucose,Whole Blood 243 mg/dL (75-99)
[2020-01-22] MEDS: DICLOFENAC SODIUM GEL 100 GM TUBE TOPICAL SCH ×2 (19:16→21:37)
[2020-01-22 19:46] LABS: Glucose,Whole Blood 137 mg/dL (75-99)
[2020-01-22] MEDS: ATORVASTATIN 20 MG TAB PO SCH (21:36)
[2020-01-22] MEDS: RIVAROXABAN 20 MG TAB PO SCH (21:36)
[2020-01-23] MEDS: oxyCODONE-APAP 5-325MG 1 EACH TAB PO PRN ×2 (03:03→08:10)
[2020-01-23 04:11] VITALS: RESP 18
[2020-01-23] MEDS: LEVOTHYROXINE 75 MCG TAB PO SCH (05:26)
[2020-01-23 06:24] LABS: Glucose,Whole Blood 149 mg/dL (75-99)
[2020-01-23] MEDS: POTASSIUM CHLORIDE ER 20 MEQ TAB.ER PO SCH (08:06)
[2020-01-23] MEDS: CHOLECALCIFEROL 1,000 UNIT TAB PO SCH (08:06)
[2020-01-23] MEDS: CALCIUM CARB-VIT D 500MG-200UN 1 EACH TAB PO SCH (08:06)
[2020-01-23] MEDS: FLECAINIDE 50 MG TAB PO SCH (08:07)
[2020-01-23] MEDS: FLUoxetine HCL 20 MG CAP PO SCH (08:07)
[2020-01-23] MEDS: ARIPiprazole 2 MG TAB PO SCH (08:07)
[2020-01-23] MEDS: clonazePAM 1 MG TAB PO SCH (08:07)
[2020-01-23] MEDS: FUROSEMIDE 80 MG TAB PO SCH (08:07)
[2020-01-23] MEDS: PANTOPRAZOLE 40 MG TABLET PO SCH (08:07)
[2020-01-23] MEDS: levETIRAcetam 500 MG TAB PO SCH (08:07)
[2020-01-23] MEDS: METOLAZONE 2.5 MG TAB PO SCH (08:07)
[2020-01-23] MEDS: predniSONE 10 MG TAB PO SCH (08:07)
[2020-01-23] MEDS: MECLIZINE 12.5 MG TAB PO SCH (08:07)
[2020-01-23] MEDS: NADOLOL 20 MG TAB PO SCH (08:07)
[2020-01-23] MEDS: MAGNESIUM OXIDE 400 MG TAB PO SCH (08:07)
[2020-01-23] MEDS: ACYCLOVIR 200 MG CAP PO SCH (08:07)
[2020-01-23] MEDS ORDERED: ONDANSETRON 4 MG/2 ML VIAL IVP STA (08:15)
[2020-01-23] MEDS: DICLOFENAC SODIUM GEL 100 GM TUBE TOPICAL SCH (08:17)
[2020-01-23] MEDS: AMMONIUM LACTATE 12% LOTION 225 GM BTL TOPICAL SCH (08:21)
[2020-01-23] MEDS: SYMBICORT 80-4.5 MCG INHALER INHALATION SCH (08:37)
[2020-01-23] MEDS ORDERED: TRULICITY SQ SCH (09:00)
--- NOTE | 2020-01-23 09:09 | P.DS ---
Providers Date of admission: 01/19/20 13:20 Expected date of discharge: 01/23/20 Attending physician: James Mackay Consults: 01/19/20 13:24 Consult Physician Routine Consulting Provider: Amaury Gilbert Consult Reason/Comments: flutter Do you want consulting provider notified?: Yes Primary care physician: [facility] Course: FInal Diagnoses: Atrial flutter, atrial fibrillation, RVR Chest pain, troponins negative, atypical as per cardiology, abnormal Lexiscan.cardiac catheterization revealing normal coronary angiogram, normal LVEDP . Acute CHF exacerbation, diastolic dysfunction Chronic hypoxic respiratory failure, wears 4 L nasal cannula O2 at home Obstructive sleep apnea, does not wear CPAP at home COPD hypothyroidism Chronic Paroxysmal atrial fibrillation History of permanent pacemaker implantation Hypertension Hyperlipidemia Seizure disorder Anxiety Depression Hospital course:This is a 74-year-old female admitted with atrial flutter, chest pain and multiple other medical issues. Maintained on IV cardiac exam with telemetry reporting the pace, underlying atrial flutter, heart rate now 80s to 100s. Earlier this morning patient stated had left chest discomfort. Maintaining O2 sats in the 90s on 4 L nasal cannula. Evaluated by cardiology, discussing stress test potentially for tomorrow. Echo pending. Currently denies chest pain, palpitations. 01/21/20 NPO , scheduled for nuclear stress test today. Currently denies chest pain, palpitations or increased shortness of breath. Echo reported EF 40-45%, diastolic function not estimated secondary to a flutter, mild pulmonary hypertension. Vital signs stable, maintaining O2 sats in the 90s on 4 L nasal cannula. 01/22/2020 yesterday underwent Lexiscan stress test, abnormal reporting reversible defect. Scheduled for cardiac catheterization this morning. Currently no chest pain, palpitations or shortness of breath. Completed cardiac catheterization revealing normal coronary angiogram, normal LVEDP with maximizing medical treatment recommended as per cardiology. Significant clinical improvement. Patient is being discharged home today pending final DC recommendations and clearance from cardiology, in a stable condition with guarded prognosis. The impression and plan of care has been dictated as directed. : I performed a history and examination of this patient, discussed the same with the dictator. I agree with the dictator's note ,documented as a scribe. Any additional findings or plans will be noted. Patient Condition at Discharge: Stable Plan - Discharge Summary Discharge Rx Participant: No New Discharge Prescriptions: New Nadolol [Corgard] 40 mg PO DAILY #60 tab Continue Rivaroxaban [Xarelto] 20 mg PO HS Omeprazole 40 mg PO DAILY Flecainide Acetate [Tambocor] 100 mg PO BID levETIRAcetam [Keppra] 2,000 mg PO BID Acyclovir [Zovirax] 400 mg PO BID Ammonium Lactate Lotion [Lac-Hydrin 12% Lotion] 1 applic TOPICAL BID Simvastatin [Zocor] 40 mg PO HS ARIPiprazole [Abilify] 2 mg PO DAILY Fluticasone/Salmeterol [Advair 250-50 Diskus] 1 puff INHALATION RT-BID Acetaminophen Tab [Tylenol] 650 mg PO Q6HR PRN tab PRN Reason: Mild Pain Or Fever > 100.5 Potassium Chloride ER [K-Dur 20] 40 meq PO TID Furosemide [Lasix] 80 mg PO DAILY oxyCODONE-APAP 7.5-325MG [Percocet 7.5-325 mg] 1 tab PO TID PRN PRN Reason: Pain clonazePAM [KlonoPIN] 1 mg PO QID FLUoxetine HCL [PROzac] 20 mg PO TID predniSONE 10 mg PO DAILY Dulaglutide [Trulicity] 0.75 mg SQ FR Metolazone [Zaroxolyn] 2.5 mg PO DAILY Meclizine [Antivert] 12.5 mg PO BID Ibuprofen 600 mg PO TID PRN PRN Reason: Pain Levothyroxine Sodium [Synthroid] 75 mcg PO DAILY [place]-3 Fatty Acids/Fish Oil [Fish Oil 1,000 mg Softgel] 1 cap PO DAILY Cholecalciferol [Vitamin D3 (25 Mcg = 1000 Iu)] 1,000 unit PO DAILY Magnesium Oxide [Blackwell] 500 mg PO DAILY Calcium Carbonate/Vitamin D3 [Calcium 500-Vit D3 200 Tablet] 1 tab PO DAILY Diclofenac Sodium Gel [Voltaren Gel] 2 gm TOPICAL BID Discontinued Nadolol [Corgard] 20 mg PO DAILY Discharge Medication List Omeprazole 40 mg PO DAILY 07/07/14 [History] Rivaroxaban [Xarelto] 20 mg PO HS 07/07/14 [History] Flecainide Acetate [Tambocor] 100 mg PO BID 02/16/16 [History] levETIRAcetam [Keppra] 2,000 mg PO BID 08/04/16 [History] Acyclovir [Zovirax] 400 mg PO BID 12/20/17 [History] ARIPiprazole [Abilify] 2 mg PO DAILY 03/24/18 [History] Ammonium Lactate Lotion [Lac-Hydrin 12% Lotion] 1 applic TOPICAL BID 03/24/18 [History] Simvastatin [Zocor] 40 mg PO HS 03/24/18 [History] Fluticasone/Salmeterol [Advair 250-50 Diskus] 1 puff INHALATION RT-BID 02/17/19 [History] Acetaminophen Tab [Tylenol] 650 mg PO Q6HR PRN tab 02/19/19 [Rx] Potassium Chloride ER [K-Dur 20] 40 meq PO TID 03/07/19 [History] Calcium Carbonate/Vitamin D3 [Calcium 500-Vit D3 200 Tablet] 1 tab PO DAILY 01/19/20 [History] Cholecalciferol [Vitamin D3 (25 Mcg = 1000 Iu)] 1,000 unit PO DAILY 01/19/20 [History] Diclofenac Sodium Gel [Voltaren Gel] 2 gm TOPICAL BID 01/19/20 [History] Dulaglutide [Trulicity] 0.75 mg SQ FR 01/19/20 [History] FLUoxetine HCL [PROzac] 20 mg PO TID 01/19/20 [History] Furosemide [Lasix] 80 mg PO DAILY 01/19/20 [History] Ibuprofen 600 mg PO TID PRN 01/19/20 [History] Levothyroxine Sodium [Synthroid] 75 mcg PO DAILY 01/19/20 [History] Magnesium Oxide [Blackwell] 500 mg PO DAILY 01/19/20 [History] Meclizine [Antivert] 12.5 mg PO BID 01/19/20 [History] Metolazone [Zaroxolyn] 2.5 mg PO DAILY 01/19/20 [History] [place]-3 Fatty Acids/Fish Oil [Fish Oil 1,000 mg Softgel] 1 cap PO DAILY 01/19/20 [History] clonazePAM [KlonoPIN] 1 mg PO QID 01/19/20 [History] oxyCODONE-APAP 7.5-325MG [Percocet 7.5-325 mg] 1 tab PO TID PRN 01/19/20 [History] predniSONE 10 mg PO DAILY 01/19/20 [History] Nadolol [Corgard] 40 mg PO DAILY #60 tab 01/23/20 [Rx] Follow up Appointment(s)/Referral(s): James Mackay MD [Primary Care Provider] - 3 Days Ambulatory/Diagnostic Orders: Complete Blood Count w/diff [LAB.AMB] Time Frame: 3 Days, Location: None Selected Activity/Diet/Wound Care/Special Instructions: pending final dc rec, clearance from cardiology. COnfirm cardiology F/U apt. prior to dc
[2020-01-23 10:28] VITALS: BP 122/62; PULSE 70; TEMP 97.9
--- NOTE | 2020-01-23 11:02 | P.PN ---
Subjective Progress Note Date: 01/23/20 This is a pleasant 74-year-old female who follows with Dr. Hong in the office. She has a past medical history significant for paroxysmal atrial fibrillation, GERD, hyperlipidemia, sleep apnea, prior PE, fibromyalgia, prior pacemaker implantation. Presented to the hospital with symptoms of chest pain with associated shortness of breath and palpitations. Her pain is located just beneath the left breast area, it is sharp in nature, does not worsen with deep breathing or on palpation of the chest. EKG on presentation here showed a ventricular paced rhythm, underlying atrial flutter. Subsequent EKG shows atrial flutter with moderately rapid ventricular response. Chest x-ray shows cardiomegaly, pulmonary vascular congestion. Blood pressure 132/72 with a heart rate in 80s to 90s, temperature 98.3. 98% on 4 L of oxygen. White blood cell count 12.3 on admission, 10.8 this morning, hemoglobin 12.3, platelet count 370. Sodium 140, potassium 4.3, BUN 20, creatinine 0.6. AST 48 ALT 52, alk phos 30, troponin 0.012, BNP 1080. TSH 0.015. Patient was initiated on IV Cardizem in the emergency room, patient is also on nadolol, Zaroxolyn, Xarelto 20 mg daily, oral diuretics. Most recent echocardiogram with Doppler study was performed June 2018 which revealed an ejection fraction of 45-50%. At the time of my examination this morning, patient continues to complain of a sharp pain in the left side of her chest just below the breast area. Continues to be in atrial flutter with a heart rate of 80 this morning. 01/21/2020 patient was seen and examined this morning, overall her breathing is stable, continues to complain of some pleuritic type chest pain. We will schedule her for a Lexiscan stress test today. 01/23/2020 Patient was taken to the cardiac catheterization lab yesterday, she was not found to have any significant obstructive coronary artery disease. Blood pressure 122/60 with a heart rate in the 70s, 97% on 4 L of oxygen. Objective - Vital Signs Vital signs: Vital Signs Temp 97.9 F 01/23/20 08:00 Pulse 70 01/23/20 08:00 Resp 18 01/23/20 08:00 BP 122/62 01/23/20 08:00 Pulse Ox 97 01/23/20 08:00 Intake & Output 01/22/20 01/23/20 01/23/20 18:59 06:59 18:59 Intake Total 997 240 420 Output Total 1000 400 Balance -3 -160 420 Weight 110.8 kg Intake: IV 220 Invasive Line 1 20 Oral 777 240 420 Output: Urine 1000 400 Other: Voiding Method Toilet Toilet Toilet Diaper Diaper Diaper # Voids 2 1 - Exam PHYSICAL EXAMINATION: GENERAL: 74-year-old female in no acute distress at the time of my examination HEENT: Head is atraumatic, normocephalic. Pupils equal, round. Sclera anicteric. Conjunctiva are clear. Mucous membranes of the mouth are moist. Neck is supple. There is no elevated jugular venous pressure. no carotid bruit is heard. HEART EXAMINATION: [Heart S1, S2 irregularly irregular. No murmur or gallop heard.] CHEST EXAMINATION:[ Lungs are clear with improvement in air entry to the bases bilaterally. No chest wall tenderness is noted on palpation or with deep breathing.] ABDOMEN: [ Soft, nontender. Bowel sounds are heard. No organomegaly noted]. EXTREMITIES:[ 2+ peripheral pulses with trace evidence of peripheral edema, right leg greater than left, no calf tenderness noted]. Right radial site clean and dry, good distal pulse. NEUROLOGIC [patient is awake, alert and oriented 3. - Labs CBC & Chem 7: 01/22/20 06:53 01/22/20 06:53 Labs: Abnormal Lab Results - Last 24 Hours (Table) 01/22/20 01/22/20 01/22/20 Range/Units 12:24 16:28 19:45 POC Glucose (mg/dL) 186 H 243 H 137 H (75-99) mg/dL 01/23/20 Range/Units 06:21 POC Glucose (mg/dL) 149 H (75-99) mg/dL Assessment and Plan Plan: Assessment and plan #1 chest pain, atypical for acute coronary syndrome. Initial troponin negative. EKG shows atrial flutter with moderately rapid ventricular response. patient underwent a cardiac catheterization in 2012 which did not reveal any significant obstructive coronary artery disease. Lexiscan stress test performed in 2017 revealed small area of stress-induced reversible ischemia involving the apical lateral myocardium, felt to be artifactual #2 atrial flutter with moderately rapid ventricular response # 3 history of paroxysmal H or fibrillation on Xarelto for anticoagulation #4 history of prior pacemaker implantation #5 hypertension #6 hyperlipidemia #7 congestive heart failure, likely diastolic in nature, could also be secondary to rapid atrial flutter #8 mildly abnormal liver enzymes, could be secondary to congestion #9 hypothyroidism, TSH level 0.015 Plan Patient underwent a cardiac catheterization which did not reveal any significantly obstructive coronary artery disease. From cardiology's perspective, patient may be able to be discharged home today. We'll follow-up appointment for her to see Dr. Hong in the office post discharge DNP note has been reviewed, I agree with a documented findings and plan of care. Patient was seen and examined.
[2020-01-23 11:12] LABS: Glucose,Whole Blood 255 mg/dL (75-99)
--- NOTE | 2020-01-24 08:41 | DS ---
DISCHARGE SUMMARY ADDENDUM: Please add: 1. Atypical type 1 atrial fibrillation. 2. Acute on chronic diastolic and systolic congestive heart failure. MMODL / IJN: [id number] /
--- NOTE | 2020-01-24 08:44 | DS ---
DISCHARGE SUMMARY ADDENDUM: Acute on chronic hypercapnic respiratory distress. MMODL / IJN: [id number] /
== END 2020-01-23 12:22 | disposition home or self-care (01) | DRG 286 ==
LOC: EC 10:22 → 3SCARD 13:20
PROVIDERS: ADMIT Family Medicine; ATTEND Family Medicine
PROC: B2111ZZ Fluoroscopy of Multiple Coronary Arteries using Low Osmolar Contrast (ICD-10-PCS; principal; 2020-01-22 13:30)
PROC: 4A023N7 Measurement of Cardiac Sampling and Pressure, Left Heart, Percutaneous Approach (ICD-10-PCS; principal; 2020-01-22 13:30)
DX: I48.3 Typical atrial flutter (principal); I50.33 Acute on chronic diastolic (congestive) heart failure; J96.22 Acute and chronic respiratory failure with hypercapnia; E87.2 Acidosis; I48.0 Paroxysmal atrial fibrillation; I27.20 Pulmonary hypertension, unspecified; I11.0 Hypertensive heart disease with heart failure; R07.89 Other chest pain; E03.9 Hypothyroidism, unspecified; E78.5 Hyperlipidemia, unspecified; F32.9 Major depressive disorder, single episode, unspecified; F41.9 Anxiety disorder, unspecified; G40.909 Epilepsy, unspecified, not intractable, without status epilepticus; G47.33 Obstructive sleep apnea (adult) (pediatric); J44.9 Chronic obstructive pulmonary disease, unspecified; M79.7 Fibromyalgia; K21.9 Gastro-esophageal reflux disease without esophagitis; M19.90 Unspecified osteoarthritis, unspecified site; R74.8 Abnormal levels of other serum enzymes; Z79.01 Long term (current) use of anticoagulants; Z79.890 Hormone replacement therapy; Z79.899 Other long term (current) drug therapy; Z79.891 Long term (current) use of opiate analgesic; Z88.8 Allergy status to other drugs, medicaments and biological substances; Z91.013 Allergy to seafood; Z86.711 Personal history of pulmonary embolism; Z87.891 Personal history of nicotine dependence; Z90.81 Acquired absence of spleen; Z95.0 Presence of cardiac pacemaker; Z96.611 Presence of right artificial shoulder joint; Z99.81 Dependence on supplemental oxygen; Z85.51 Personal history of malignant neoplasm of bladder; Z87.01 Personal history of pneumonia (recurrent); Z87.440 Personal history of urinary (tract) infections; Z82.49 Family history of ischemic heart disease and other diseases of the circulatory system; Z82.62 Family history of osteoporosis; Z84.89 Family history of other specified conditions
CPT/HCPCS: 36415; 71046; 78452; 80048; 80053; 83605; 83735; 83880; 84439; 84443; 84484; 85025; 93005; 93017; 93306; 93458; 94640; 96365; 96366; 99285

== ENCOUNTER 2020-05-31 16:24 | Inpatient (IN) | payer MEDICARE, OTHER ==
[2020-05-31] MEDS ORDERED: NITROGLYCERIN OINT 1 INCH/GM PACKET TOPICAL STA (16:45)
[2020-05-31] MEDS ORDERED: ASPIRIN 81 MG PO STA (16:45)
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
[2020-05-31] MEDS ORDERED: DILTIAZEM 125 MG in SODIUM CHLORIDE 0.9% 100 ML IV SCH (17:00)
[2020-05-31 17:13] LABS: Basophils # (A) 0.1 k/uL (0-0.2); Basophils % (A) 1 %; Eosinophils # (A) 0.1 k/uL (0-0.7); Eosinophils % (A) 1 %; HCT 42.2 % (34.0-46.0); HGB 13.2 gm/dL (11.4-16.0); Hypochromasia Slight; Lymphocytes # (A) 3.2 k/uL (1.0-4.8); Lymphocytes % (A) 20 %; MCHC 31.2 g/dL (31.0-37.0); MCV 86.4 fL (80.0-100.0); Mean Platelet Volume 7.6; Monocytes # (A) 1.1 k/uL (0-1.0); Monocytes % (A) 7 %; Neutrophils # (A) 11.2 k/uL (1.3-7.7); Neutrophils % (A) 71 %; Platelet Count 345 k/uL (150-450); RBC 4.89 m/uL (3.80-5.40); RDW 15.4 % (11.5-15.5); WBC 15.9 k/uL (3.8-10.6)
--- NOTE | 2020-05-31 17:21 | XR ---
EXAMINATION TYPE: XR chest 2V DATE OF EXAM: 05/31/2020 COMPARISON: 01/19/2020 HISTORY: Chest pain TECHNIQUE: FINDINGS: There is no heart failure nor confluent pneumonic infiltrate. There is left axillary pacema ker. There are chest leads. Costophrenic angles are clear. Bony thorax appears intact. There is osteo penia. There is right shoulder surgery fixing old humeral neck fracture. IMPRESSION: No active cardiopulmonary disease. No change.
[2020-05-31 17:23] LABS: INR 0.9 (<1.2); Partial Thromboplastin Time 22.2 sec (22.0-30.0); Prothrombin Time 9.7 sec (9.0-12.0)
[2020-05-31 17:27] LABS: ALT 25 U/L (4-34); AST 21 U/L (14-36); African American GFR (CKD) >90 (>60 ml/min/1.73 sqM); Albumin 3.8 g/dL (3.5-5.0); Alkaline Phosphatase 44 U/L (38-126); Anion Gap 8 mmol/L; Blood Urea Nitrogen 21 mg/dL (7-17); Calcium 9.5 mg/dL (8.4-10.2); Carbon Dioxide 31 mmol/L (22-30); Chloride 96 mmol/L (98-107); Glucose 132 mg/dL (74-99); Magnesium 1.6 mg/dL (1.6-2.3); Non-African American GFR(CKD) 87 (>60 ml/min/1.73 sqM); Potassium 3.3 mmol/L (3.5-5.1); Sodium 135 mmol/L (137-145); Total Bilirubin 0.9 mg/dL (0.2-1.3); Total Protein 6.4 g/dL (6.3-8.2)
[2020-05-31] MEDS ORDERED: NITROGLYCERIN SL TABS 0.4 MG TAB SUBLINGUAL PRN (18:35)
[2020-05-31] MEDS ORDERED: IBUPROFEN 600 MG TAB PO PRN (20:37)
[2020-05-31] MEDS: FLECAINIDE 50 MG TAB PO SCH (21:07)
[2020-05-31] MEDS: ATORVASTATIN 20 MG TAB PO SCH (21:07)
[2020-05-31] MEDS: ACYCLOVIR 200 MG CAP PO SCH (21:07)
[2020-05-31] MEDS: oxyCODONE-APAP 7.5-325MG 1 EACH TAB PO SCH (21:08)
[2020-05-31] MEDS: RIVAROXABAN 20 MG TAB PO SCH (21:08)
[2020-05-31] MEDS: clonazePAM 1 MG TAB PO SCH (21:08)
[2020-05-31] MEDS: levETIRAcetam 500 MG TAB PO SCH (21:08)
[2020-06-01] MEDS: NITROGLYCERIN OINT 1 INCH/GM PACKET TOPICAL SCH ×2 (00:25→05:40)
[2020-06-01 01:57] LABS: Glucose,Whole Blood 123 mg/dL (75-99)
[2020-06-01 02:07] LABS: Cholesterol 162 mg/dL (<200); HDL Cholesterol 64 mg/dL (40-60); LDL Cholesterol,Calculated 40 mg/dL (0-99); Triglycerides 290 mg/dL (<150)
[2020-06-01] MEDS: PANTOPRAZOLE 40 MG TABLET PO SCH (05:58)
[2020-06-01] MEDS: LEVOTHYROXINE 25 MCG TAB PO SCH (05:58)
[2020-06-01 06:21] LABS: Glucose,Whole Blood 123 mg/dL (75-99)
[2020-06-01] MEDS: POTASSIUM CHLORIDE ER 20 MEQ TAB.ER PO SCH ×3 (08:07→10:40)
[2020-06-01] MEDS ORDERED: METOPROLOL SUCCINATE (ER) 50 MG TAB.ER.24H PO SCH (09:00)
[2020-06-01] MEDS ORDERED: hydroCHLOROthiazide 25 MG TAB PO SCH (09:00)
[2020-06-01] MEDS ORDERED: ASPIRIN 325 MG TAB PO SCH (09:00)
[2020-06-01] MEDS: LOSARTAN 25 MG TAB PO SCH (09:15)
[2020-06-01] MEDS: clonazePAM 1 MG TAB PO SCH ×4 (09:15→21:01)
[2020-06-01] MEDS: METOPROLOL SUCCINATE (ER) 25 MG TAB.ER.24H PO SCH (09:15)
[2020-06-01] MEDS: ACYCLOVIR 200 MG CAP PO SCH ×2 (09:15→20:59)
[2020-06-01] MEDS: FLUoxetine HCL 20 MG CAP PO SCH (09:15)
[2020-06-01] MEDS: predniSONE 10 MG TAB PO SCH (09:16)
[2020-06-01] MEDS: FUROSEMIDE 40 MG TAB PO SCH (09:16)
[2020-06-01] MEDS: FLECAINIDE 50 MG TAB PO SCH ×2 (09:16→21:00)
[2020-06-01] MEDS: oxyCODONE-APAP 7.5-325MG 1 EACH TAB PO SCH ×3 (09:16→21:01)
[2020-06-01] MEDS: ARIPiprazole 2 MG TAB PO SCH (09:16)
[2020-06-01] MEDS: levETIRAcetam 500 MG TAB PO SCH ×2 (09:22→21:00)
[2020-06-01] MEDS: MAGNESIUM SULFATE-D5W PMX 1 GM in DEXTROSE/WATER 1 100ML.BAG IVPB SCH ×2 (09:32→10:40)
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
[2020-06-01 17:15] LABS: Glucose,Whole Blood 249 mg/dL (75-99)
[2020-06-01] MEDS: RIVAROXABAN 20 MG TAB PO SCH (21:00)
[2020-06-01] MEDS: ATORVASTATIN 20 MG TAB PO SCH (21:00)
[2020-06-01 21:07] LABS: Glucose,Whole Blood 160 mg/dL (75-99)
--- NOTE | 2020-06-02 02:15 | HP ---
HISTORY AND PHYSICAL A 75-year-old white female, paroxysmal atrial fibrillation, GERD, dyslipidemia, nicotine addiction, prior pulmonary embolism, pacemaker, fibromyalgia, asthma, COPD, prior cardiac ablation, hypothyroidism, came in with atrial fibrillation, rapid ventricular response, found to have low potassium, low magnesium. Heart rate went up to 180. She was placed on Cardizem drip and now has converted back into sinus rhythm with magnesium and potassium. PAST MEDICAL HISTORY: Atrial fibrillation, asthma, angina, heart failure, COPD, fibromyalgia, osteoarthritis, pulmonary embolism, seizure disorder, sleep apnea, O2 dependent COPD on 4 L, chronic pain syndrome, degenerative joint disease, neuropathy, anxiety, depression, history of bladder tumor removal, D and C, rhinoplasty, splenectomy at 19, rectal reconstruction gangrene from his infection, right knee arthroscopy, EGD, colonoscopy, right shoulder replacement. FAMILY HISTORY: Father myocardial infarction age 79 and TB. Mother osteoporosis and TB. HOME MEDICATIONS: 1. Omeprazole to 40 mg daily. 2. Xarelto 20 mg daily. 3. Tambocor 100 b.i.d. 4. Keppra 2000 b.i.d. 5. Zovirax 400 b.i.d. 6. Abilify 2 mg daily. 7. Zocor 40 mg daily. 8. Prozac 60 mg daily. 9. Lasix 40 mg daily. 10.Ibuprofen 600 t.i.d. 11.Klonopin 1 mg q.i.d. 12.Percocet 7.5 t.i.d. 13.Prednisone taper. 14.Trulicity 1.5 subcu weekly. 15.Synthroid 25 mcg daily. 16.Cozaar 25 mg daily. 17.Toprol-XL 50 daily. 18.Hydrochlorothiazide 25 daily. ALLERGIES: SHELLFISH, SYMBICORT, TIOTROPIUM BROMIDE, DARVON, MOLD. PHYSICAL EXAMINATION: VITAL SIGNS: Temperature 97.9, pulse 70s to 120s, respiratory rate 16 to 18, blood pressure is 110 to 150 over 60s to 80s. CARDIOVASCULAR: Irregular regular rhythm. LUNGS: Rales at the bases. GI: Soft. HEMATOLOGY: Negative Homans. PSYCH: Fair mood and affect. NEUROLOGIC: Alert and oriented x3. White count is 15.9, hemoglobin is 13.2, sodium 135, potassium 3.3, BUN is 21, creatinine 0.68. Troponins negative. ASSESSMENT: 1. Atrial fibrillation, rapid ventricular response. 2. Chronic obstructive pulmonary disease with exacerbation. 3. History of nicotine addiction. 4. Dyslipidemia. 5. Gastroesophageal reflux disease. 6. Prior pulmonary embolism. 7. Pacemaker. 8. Fibromyalgia. 9. Asthma. 10.Hypothyroidism. 11.Normal cardiac catheterization this year. Nitro paste has been stopped as well as Cardizem drip and aspirin. Beta william has been increased. Potassium, magnesium been replaced. Discharge home tomorrow. Stable condition. MMODL / IJN: [id number] /
[2020-06-02 06:05] LABS: Glucose,Whole Blood 142 mg/dL (75-99)
[2020-06-02] MEDS: LEVOTHYROXINE 25 MCG TAB PO SCH (06:12)
[2020-06-02] MEDS: PANTOPRAZOLE 40 MG TABLET PO SCH (06:12)
[2020-06-02 07:44] VITALS: BP 118/65; PULSE 62; RESP 18; TEMP 97.4
[2020-06-02] MEDS: ACYCLOVIR 200 MG CAP PO SCH (08:51)
[2020-06-02] MEDS: FLUoxetine HCL 20 MG CAP PO SCH (08:51)
[2020-06-02] MEDS: levETIRAcetam 500 MG TAB PO SCH (08:51)
[2020-06-02] MEDS: METOPROLOL SUCCINATE (ER) 25 MG TAB.ER.24H PO SCH (08:51)
[2020-06-02] MEDS: POTASSIUM CHLORIDE ER 20 MEQ TAB.ER PO SCH (08:51)
[2020-06-02] MEDS: FUROSEMIDE 40 MG TAB PO SCH (08:51)
[2020-06-02] MEDS: FLECAINIDE 50 MG TAB PO SCH (08:52)
[2020-06-02] MEDS: oxyCODONE-APAP 7.5-325MG 1 EACH TAB PO SCH (08:52)
[2020-06-02] MEDS: clonazePAM 1 MG TAB PO SCH (08:52)
[2020-06-02] MEDS: predniSONE 10 MG TAB PO SCH (08:52)
[2020-06-02] MEDS: LOSARTAN 25 MG TAB PO SCH (08:52)
[2020-06-02] MEDS: ARIPiprazole 2 MG TAB PO SCH (08:52)
[2020-06-02] MEDS ORDERED: MAGNESIUM OXIDE 400 MG TAB PO SCH (09:00)
--- NOTE | 2020-06-02 09:29 | P.PN ---
Subjective Progress Note Date: 06/02/20 This is a 75-year-old female with documented history of paroxysmal atrial fibrillation, GERD, hyperlipidemia, prior history of smoking, sleep apnea, prior pulmonary embolism, history of pacemaker, fibromyalgia, asthma, COPD, prior ablation, hypothyroidism, who follows with Dr. Hong in the office. She presents to the hospital on this occasion with symptoms of heart racing and palpitations. She states that she checked her pulse at home, it was in the 180 range, she called her nurse who recommended that she call her physician. After calling her physician she was advised to come to the emergency room for further evaluation and treatment. Patient has had a recent exacerbation of COPD and states that she has not felt well since then. Overall feeling weak and tired. Her EKG on presentation here showed atrial fibrillation with a rapid ventricular response. In January of this year patient underwent a Lexiscan which showed questionable reversible ischemia and subsequently she underwent a cardiac catheterization which revealed normal coronary arteries. Echocardiogram with Doppler study was also performed in January showed an ejection fraction of 40-45%. X-ray this admission did not reveal any acute process. She was initiated on Cardizem drip in the emergency room and continues to be on a Cardizem drip at 5 mg per hour. Blood pressure 130/80 heart rate 80-120 respirations 18 she's 96% on 4 L of oxygen. White blood cell count 15.9, hemoglobin 13.2, platelet count 345. Sodium 135, potassium 3.3, BUN 21 and creatinine 0.6 magnesium 1.6. We will discontinue her aspirin, stop the Cardizem drip, discontinue Nitropaste, increase her dose of beta william to 75 mg daily, replace her potassium and magnesium. 06/02/2020 Patient was seen and examined this morning, currently in a normal sinus rhythm. Blood pressure 118/60 with a heart rate in the 60s, 99% on 4 L of oxygen. No lab data today. Objective - Vital Signs Vital signs: Vital Signs Temp 97.4 F L 06/02/20 07:39 Pulse 62 06/02/20 07:39 Resp 18 06/02/20 07:39 BP 118/65 06/02/20 07:39 Pulse Ox 99 06/02/20 07:39 Intake & Output 06/01/20 06/02/20 06/02/20 18:59 06:59 18:59 Intake Total 580 Balance 580 Intake: Intake, IV Titration 100 Amount Magnesium Sulfate-D5w Pmx 100 1 gm In Dextrose/Water 1 100ml.bag @ 100 mls/hr IVPB Q1H [facility] Rx#: [id number] Oral 480 Other: Voiding Method Toilet Toilet Incontinent Incontinent # Voids 1 1 - Exam PHYSICAL EXAMINATION: GENERAL: 85-year-old female in no acute distress at the time of my examination HEENT: Head is atraumatic, normocephalic. Pupils equal, round. Sclera anicteric. Conjunctiva are clear. Mucous membranes of the mouth are moist. Neck is supple. There is no elevated jugular venous pressure. No carotid bruit is heard. HEART EXAMINATION: S1 and S2 irregularly irregular CHEST EXAMINATION: Lungs Reveal decreased air exchange throughout ABDOMEN: Soft, nontender. Bowel sounds are heard. No organomegaly noted. EXTREMITIES: 2+ peripheral pulses with no evidence of peripheral edema and no calf tenderness noted. NEUROLOGIC patient is awake, alert and oriented 3 - Labs CBC & Chem 7: 05/31/20 16:52 05/31/20 16:52 Labs: Abnormal Lab Results - Last 24 Hours (Table) 06/01/20 06/01/20 06/02/20 Range/Units 17:13 21:05 06:03 POC Glucose (mg/dL) 249 H 160 H 142 H (75-99) mg/dL Assessment and Plan Plan: Assessment and plan #1 atrial fibrillation with rapid ventricular response, patient has history of paroxysmal atrial fibrillation #2 COPD with recent exacerbation #3 history of nicotine dependence #4 hyperlipidemia #5 GERD #6 prior PE #7 history of pacemaker #8 history of fibromyalgia #9 asthma #10 hypothyroidism #11 no significant documented coronary artery disease by cardiac catheterization performed in January of this year Plan From cardiology's perspective, patient may be able to be discharged home once cleared by primary. We'll make her a follow-up appointment in the office with Dr. Hong post discharge. DNP note has been reviewed, I agree with a documented findings and plan of care. Patient was seen and examined.
--- NOTE | 2020-06-02 10:40 | CDI ---
Documentation Clarification Form Date: 06/02/2020 10:32:33 AM From: Ana Luisa Scott CCS, CCDS Admit Date: 06/01/2020 01:37:00 PM Patient Name: Zari Mae Visit Number: [id number] Discharge Date: ATTENTION: The Clinical Documentation Specialists (CDI) and [facility] Coding Staff appreciate your assistance in clarifying documentation. Please respond to the clarification below the line at the bottom and electronically sign. The CDI & [facility] Coding staff will review the response and follow-up if needed. Please note: Queries are made part of the Legal Health Record. If you have any questions, please contact the author of this message via ITS. Dr. James Mackay: Per the 06/01 History & Physical: "....came in with atrial fibrillation, rapid ventricular response, found to have low potassium, low magnesium." History/Risk Factors: Paroxysmal Atrial Fibrillation, Atrial Flutter, COPD, Hyperlipidemia, Hypothyroidism, GERD, PE, Asthma, Former smoker. Clinical indicators: Presented to the ED on 05/31 with chest pain via EMS. Admitted with Atrial Flutter with RVR. Per the History & Physical: Atrial Fibrillation RVR. Abnormal Labs 05/31: Na 135*, K 3.3*, Magnesium (1.6). Treatment 05/31: Nitropaste, IV Cardizem, PO K Dur 20 meq, IV Mag Sulfate 06/01, po Mag Oxide 06/02. Clinical significance of diagnostic testing and treatment CANNOT be assumed or coded without physician documentation of significance if any. Please clarify the abnormal laboratory results: Abnormal Lab Value, please specify associated condition/diagnosis: Unable to determine Other, please specify (Last Revision: May 2017) Query response documented in the 06/[address] Mackay: "This patient was admitted with atrial fibrillation, rapid ventricular response, hypokalemia, hypomagnesemia, atrial flutter, acute coronary syndrome, chest pain." LAURIED
[2020-06-02 12:29] LABS: Glucose,Whole Blood 231 mg/dL (75-99)
--- NOTE | 2020-06-02 17:38 | DS ---
DISCHARGE SUMMARY This patient was admitted with atrial fibrillation, rapid ventricular response, hypokalemia, hypomagnesemia, atrial flutter, acute coronary syndrome, chest pain. Magnesium and potassium resolved her atrial fibrillation. She came back into sinus rhythm. She was discharged home. We started her on mag oxide 400 mg daily to take as an outpatient and continued potassium supplementation. Follow up in the office. HOME MEDICINES: 1. K-Dur 20 mEq daily. 2. Mag oxide 400 mg daily. 3. Nitroglycerin sublingually p.r.n. 4. Toprol-XL 75 mg daily. 5. Xarelto 20 mg daily. 6. Omeprazole 40 mg daily. 7. Tambocor 100 mg b.i.d. 8. Keppra 2000 b.i.d. 9. Zovirax 400 b.i.d. 10.Zocor 40 mg daily. 11.Abilify 2 mg daily. 12.Percocet 7.5 t.i.d. 13.Klonopin 1 mg q.i.d. 14.Prozac 60 mg daily. 15.Prednisone taper. 16.Ibuprofen 600 t.i.d. 17.Trulicity 1.5 subcutaneously once a week. 18.Cozaar 20 mg daily. 19.Synthroid 25 mcg daily. Follow up as an outpatient. Diet regular. Ambulate as tolerated. MMODL / IJN: [id number] /
[2020-06-06] MEDS ORDERED: DULAGLUTIDE 1.5 MG/0.5 ML SQ SCH (12:00)
== END 2020-06-02 13:59 | disposition home or self-care (01) | DRG 309 ==
LOC: EC 16:24 → 3NCARDOBS 18:35 → OBSVTOIN 06-01 13:37
PROVIDERS: ADMIT Family Medicine; ATTEND Family Medicine
DX: I48.0 Paroxysmal atrial fibrillation (principal); J44.1 Chronic obstructive pulmonary disease with (acute) exacerbation; I24.9 Acute ischemic heart disease, unspecified; E03.9 Hypothyroidism, unspecified; E78.5 Hyperlipidemia, unspecified; Z87.891 Personal history of nicotine dependence; G40.909 Epilepsy, unspecified, not intractable, without status epilepticus; I48.92 Unspecified atrial flutter; I50.9 Heart failure, unspecified; K21.9 Gastro-esophageal reflux disease without esophagitis; M79.7 Fibromyalgia; G89.4 Chronic pain syndrome; M54.9 Dorsalgia, unspecified; E83.42 Hypomagnesemia; E87.6 Hypokalemia; G62.9 Polyneuropathy, unspecified; L40.9 Psoriasis, unspecified; G47.30 Sleep apnea, unspecified; Z99.89 Dependence on other enabling machines and devices; F41.9 Anxiety disorder, unspecified; F32.9 Major depressive disorder, single episode, unspecified; M81.0 Age-related osteoporosis without current pathological fracture; Z87.01 Personal history of pneumonia (recurrent); Z87.440 Personal history of urinary (tract) infections; Z85.51 Personal history of malignant neoplasm of bladder; Z86.711 Personal history of pulmonary embolism; Z79.01 Long term (current) use of anticoagulants; Z88.5 Allergy status to narcotic agent; Z91.013 Allergy to seafood; Z88.8 Allergy status to other drugs, medicaments and biological substances; Z79.890 Hormone replacement therapy; Z79.899 Other long term (current) drug therapy; Z82.49 Family history of ischemic heart disease and other diseases of the circulatory system; Z82.62 Family history of osteoporosis; Z83.1 Family history of other infectious and parasitic diseases; Z90.81 Acquired absence of spleen; Z95.0 Presence of cardiac pacemaker; Z96.611 Presence of right artificial shoulder joint; Z99.81 Dependence on supplemental oxygen; M19.90 Unspecified osteoarthritis, unspecified site
CPT/HCPCS: 36415; 71046; 80053; 80061; 83735; 84484; 85025; 85610; 85730; 93005; 96365; 96366; 99291

== ENCOUNTER 2020-09-06 17:10 | Inpatient (IN) | payer MEDICARE, OTHER ==
[2020-09-06] MEDS ORDERED: fentaNYL (PF) 50 MCG/ML 2 ML AMP IVP STA (17:59)
[2020-09-06 18:05] LABS: Basophils # (A) 0.1 k/uL (0-0.2); Basophils % (A) 1 %; Eosinophils # (A) 0.3 k/uL (0-0.7); Eosinophils % (A) 4 %; HCT 33.9 % (34.0-46.0); Lymphocytes # (A) 2.7 k/uL (1.0-4.8); Lymphocytes % (A) 35 %; MCH 27.9 pg (25.0-35.0); MCHC 32.6 g/dL (31.0-37.0); MCV 85.7 fL (80.0-100.0); Mean Platelet Volume 7.2; Monocytes # (A) 0.8 k/uL (0-1.0); Monocytes % (A) 10 %; Neutrophils # (A) 3.6 k/uL (1.3-7.7); Neutrophils % (A) 47 %; Platelet Count 357 k/uL (150-450); RBC 3.96 m/uL (3.80-5.40); RDW 14.6 % (11.5-15.5); WBC 7.7 k/uL (3.8-10.6)
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
--- NOTE | 2020-09-06 18:06 | XR ---
EXAMINATION TYPE: XR chest 2V DATE OF EXAM: 09/06/2020 COMPARISON: 05/31/2020 HISTORY: Chest pain TECHNIQUE: 2 views FINDINGS: There is a left axillary pacemaker. There is mild linear density left lung base. The other lung bennett are clear. There are no hilar masses. There is no pleural effusion. Thoracic aorta is ath eromatous. IMPRESSION: There is some mild atelectasis at the left lung base that is increased compared to old ex am. No heart failure.
[2020-09-06 18:14] LABS: Partial Thromboplastin Time 23.5 sec (22.0-30.0); Prothrombin Time 10.6 sec (9.0-12.0)
[2020-09-06 18:16] LABS: ALT 20 U/L (4-34); AST 23 U/L (14-36); African American GFR (CKD) >90 (>60 ml/min/1.73 sqM); Albumin 3.3 g/dL (3.5-5.0); Alkaline Phosphatase 36 U/L (38-126); Anion Gap 4 mmol/L; Blood Urea Nitrogen 15 mg/dL (7-17); Calcium 9.1 mg/dL (8.4-10.2); Carbon Dioxide 33 mmol/L (22-30); Chloride 100 mmol/L (98-107); Creatine Kinase 25 U/L (30-135); Glucose 111 mg/dL (74-99); Magnesium 1.8 mg/dL (1.6-2.3); Non-African American GFR(CKD) >90 (>60 ml/min/1.73 sqM); Potassium 4.1 mmol/L (3.5-5.1); Sodium 137 mmol/L (137-145); Total Bilirubin 0.4 mg/dL (0.2-1.3)
--- NOTE | 2020-09-06 19:32 | US ---
EXAMINATION TYPE: US venous doppler duplex LE DATE OF EXAM: 09/06/2020 7:16 PM COMPARISON: US CLINICAL HISTORY: leg swelling. Leg pain and swelling x 5 weeks after patient fell. Hx PE per patient . Patient on Xarelto. SIDE PERFORMED: Bilateral TECHNIQUE: The lower extremity deep venous system is examined utilizing real time linear array sonog mayela with graded compression, doppler sonography and color-flow sonography. VESSELS IMAGED: Common Femoral Vein Deep Femoral Vein Greater Saphenous Vein * Femoral Vein Popliteal Vein Small Saphenous Vein * Proximal Calf Veins (* superficial vessels) Limited exam due to swelling and large patient body habitus. Right Leg: No evidence of DVT in veins imaged at this time from prox calf veins to CFV/GSV. Left Leg: No evidence of DVT in veins imaged at this time from prox calf veins to CFV/GSV. Limited c olor imaging distal femoral vein - popliteal vein and prox calf veins due to swelling. Vessels appear to compress. IMPRESSION: No sign of deep vein thrombosis in both legs.
[2020-09-06] MEDS ORDERED: NALOXONE 0.4 MG/ML 1 ML VIAL IV PRN (20:08)
[2020-09-06] MEDS ORDERED: FUROSEMIDE 10 MG/ML 10 ML VIAL IV STA (20:09)
[2020-09-06 20:12] LABS: Appearance,Urine Clear (Clear); Bilirubin,Urine Negative (Negative); Blood,Urine Negative (Negative); Color,Urine Colorless; Glucose,Urine (UA) Negative (Negative); Ketones,Urine Negative (Negative); Leukocyte Esterase,Urine Negative (Negative); Nitrite,Urine Negative (Negative); Protein,Urine Negative (Negative); Specific Gravity,Urine 1.009 (1.001-1.035); Urobilinogen,Urine <2.0 mg/dL (<2.0)
[2020-09-06 21:45] LABS: Glucose,Whole Blood 95 mg/dL (75-99)
[2020-09-06] MEDS ORDERED: NITROGLYCERIN SL TABS 0.4 MG TAB SUBLINGUAL PRN (22:21)
[2020-09-06] MEDS: oxyCODONE-APAP 7.5-325MG 1 EACH TAB PO PRN (22:41)
[2020-09-06] MEDS ORDERED: DOCUSATE 100 MG CAP PO PRN (23:00)
[2020-09-06] MEDS ORDERED: IBUPROFEN 600 MG TAB PO PRN (23:00)
[2020-09-06] MEDS ORDERED: MECLIZINE 12.5 MG TAB PO PRN (23:00)
[2020-09-07] MEDS ORDERED: HYDROmorphone 0.5 MG/0.5 ML SYRINGE IM PRN (02:00)
[2020-09-07] MEDS: HYDROmorphone 0.5 MG/0.5 ML SYRINGE IVP PRN ×5 (02:38→22:07)
[2020-09-07] MEDS: LEVOTHYROXINE 25 MCG TAB PO SCH (05:20)
[2020-09-07 06:42] LABS: Basophils # (A) 0.1 k/uL (0-0.2); Basophils % (A) 1 %; Eosinophils # (A) 0.3 k/uL (0-0.7); Eosinophils % (A) 3 %; HCT 35.2 % (34.0-46.0); HGB 11.3 gm/dL (11.4-16.0); Lymphocytes # (A) 3.7 k/uL (1.0-4.8); Lymphocytes % (A) 39 %; MCHC 32.2 g/dL (31.0-37.0); Mean Platelet Volume 7.3; Monocytes # (A) 0.8 k/uL (0-1.0); Monocytes % (A) 9 %; Neutrophils # (A) 4.4 k/uL (1.3-7.7); Neutrophils % (A) 46 %; Platelet Count 366 k/uL (150-450); RBC 4.04 m/uL (3.80-5.40); RDW 14.5 % (11.5-15.5); WBC 9.6 k/uL (3.8-10.6)
[2020-09-07 06:45] LABS: Glucose,Whole Blood 94 mg/dL (75-99)
[2020-09-07] MEDS: ALBUTEROL NEBULIZED 2.5 MG/3 ML INHALATION PRN (07:20)
[2020-09-07] MEDS: FLUoxetine HCL 20 MG CAP PO SCH (07:56)
[2020-09-07] MEDS: ACYCLOVIR 200 MG CAP PO SCH ×2 (07:56→20:44)
[2020-09-07] MEDS: POTASSIUM CHLORIDE ER 20 MEQ TAB.ER PO SCH (07:56)
[2020-09-07] MEDS: clonazePAM 1 MG TAB PO SCH ×4 (07:57→21:27)
[2020-09-07] MEDS: FLECAINIDE 50 MG TAB PO SCH ×2 (07:57→21:19)
[2020-09-07] MEDS: METOPROLOL SUCCINATE (ER) 100 MG TAB.ER.24H PO SCH (07:58)
[2020-09-07] MEDS: ARIPiprazole 2 MG TAB PO SCH (07:58)
[2020-09-07] MEDS: LOSARTAN 25 MG TAB PO SCH (07:59)
[2020-09-07] MEDS: PANTOPRAZOLE 40 MG TABLET PO SCH ×2 (08:04→20:45)
--- NOTE | 2020-09-07 08:29 | HP ---
HISTORY AND PHYSICAL This 75-year-old white female on 4 L oxygen at home, came in with extreme amount of leg swelling, heart failure, asthma, possibly right-sided heart failure, possibly acute on chronic diastolic heart failure due to unable to ambulate her, elevate her legs. She has swelling and severe weight gain. Denied any chest pain, shortness of breath. No abdominal pain. No changes in the bowel or bladder. No fever or chills. MEDICATIONS: 1. Omeprazole 40 b.i.d. 2. Xarelto 10 mg daily. 3. Tambocor 100 b.i.d. 4. Keppra 1500 b.i.d. 5. Zovirax 400 b.i.d. 6. Abilify 2 mg daily. 7. Zocor 40 mg daily. 8. Prozac 60 mg daily. 9. Lasix 40 mg b.i.d. 10.Ibuprofen 600 t.i.d. 11.Klonopin 1 mg q.i.d. 12.[place] 7.5 t.i.d. 13.Trulicity 1.5 weekly. 14.Synthroid 25 mcg daily. 15.Cozaar 12.5 daily. 16.Ventolin HFA 2 puffs q.6 hours p.r.n. 17.Aspirin 81 mg daily. 18.Colace 100 mg daily. 19.Meclizine 12.5 b.i.d. 20.Metoprolol ER 100 mg daily. ALLERGIES: SYMBICORT, SHELLFISH, SPIRIVA, DEMEROL, DARVON, MOLD. REVIEW OF SYSTEMS: Fourteen-point review of systems negative except for mentioned in HPI. PAST MEDICAL HISTORY: Atrial fibrillation, asthma, cancer, angina, heart failure, COPD, fibromyalgia, GERD, dyslipidemia, osteoarthritis, pneumonia, pulmonary embolism, seizure disorder, sleep apnea, 4 L of nasal cannula all the time, chronic pain syndrome, cardiac ablation, paroxysmal atrial fibrillation, CPAP, hypoglycemia, osteoporosis, psoriasis. PAST SURGICAL HISTORY: Bladder surgery, cardiac ablation, pacemaker, dual-chamber pacemaker, bladder tumor removal, rhinoplasty, splenectomy, rectal reconstruction, right knee arthroscopy, right shoulder replacement. FAMILY HISTORY: Father myocardial infarction. Mother osteoporosis, TB. PHYSICAL EXAMINATION: VITAL SIGNS: Temperature 98.7, blood pressure is 110s over 50s, pulse 60 to 70, respiratory rate 16 to 18. CARDIOVASCULAR: S1, S2. LUNGS: Scattered wheeze x4. Rales at the bases. GI: Soft, distended. EXTREMITIES: 2 to 3+ edema. ASSESSMENT: 1. Acute diastolic heart failure. 2. Acute on chronic anemia. 3. Chronic obstructive pulmonary disease, oxygen dependent. Order echo. Get diuresis with IV Lasix. Await for Pulmonary and Cardiology consults. She has history of seizures, severe degenerative disc disease, neuropathy, acute hypoxemic respiratory failure, hypercapnic. Please see further orders. MMODL / IJN: [id number] /
[2020-09-07] MEDS ORDERED: ASPIRIN 81 MG PO SCH (09:00)
[2020-09-07] MEDS ORDERED: FUROSEMIDE 10 MG/ML 4 ML VIAL IV SCH (09:00)
[2020-09-07] MEDS ORDERED: FUROSEMIDE 40 MG TAB PO SCH (09:00)
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
[2020-09-07 09:41] LABS: African American GFR (CKD) 104.8 (60.0-200.0); Anion Gap 14.4 mmol/L (4.00-12.00); Calcium 9.4 mg/dL (8.7-10.3); Carbon Dioxide 34.6 mmol/L (21.6-31.8); Non-African American GFR(CKD) 90.4 (60.0-200.0)
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
--- NOTE | 2020-09-07 10:09 | CT ---
EXAMINATION TYPE: CT cervical spine wo con DATE OF EXAM: 09/07/2020 COMPARISON: 02/17/2019 HISTORY: Neck pain and headache for [address] DLP: 627.70 mGycm CONTRAST: None CT of the cervical spine is performed in the axial plane at 2 mm thick sections. Reconstructed image s in the coronal, and sagittal plane are reviewed on the computer. No acute fractures are evident. Vertebral body alignment is straightened. There is narrowing of disc height throughout the cervical spine. This is greatest at the C4-5 C5-6 le vels. Posterior endplate spurring is noted C5-6 and at the superior endplate of C4. Vertebral body heights are preserved. No spinal canal stenosis is evident Left foraminal stenosis due to uncovertebral joint hypertrophy and facet hypertrophy is present C3-4. Uncovertebral joint hypertrophy has moderate bilateral foraminal stenosis C4-5 C5-6. This may be sli ghtly more severe on the right at C5-6. Milder foraminal stenosis present bilaterally at C6-7. IMPRESSIONS: 1. Degenerative disc changes greatest C5-6 and C4-5. 2. Uncovertebral joint hypertrophy contributing to foraminal narrowing within the mid cervical spine discussed above.
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
[2020-09-07 11:49] LABS: Glucose,Whole Blood 116 mg/dL (75-99)
[2020-09-07] MEDS: FUROSEMIDE 40 MG TAB PO SCH (15:46)
[2020-09-07 16:46] LABS: Hemoglobin A1C 7.2 % (4.0-6.0)
[2020-09-07 16:49] LABS: Glucose,Whole Blood 107 mg/dL (75-99)
--- NOTE | 2020-09-07 18:00 | ECHOF ---
Referral Reason:lower extremity swelling MEASUREMENTS -------- HEIGHT: 165.1 cm WEIGHT: 108.4 kg BP: 120/84 RVIDd: 2.2 cm (< 3.3) IVSd: 1.3 cm (0.6 - 1.1) LVIDd: 4.7 cm (3.9 - 5.3) LVPWd: 1.4 cm (0.6 - 1.1) IVSs: 2.0 cm LVIDs: 2.8 cm LVPWs: 1.9 cm Ao Diam: 3.1 cm (2.0 - 3.7) AV Cusp: 2.1 cm (1.5 - 2.6) LA Diam: 2.7 cm (2.7 - 3.8) MV EXCURSION: 17.354 mm (> 18.000) MV EF SLOPE: 90 mm/s (70 - 150) EPSS: 0.7 cm MV E Govind: 0.83 m/s MV DecT: 146 ms MV A Govind: 0.94 m/s MV E/A Ratio: 0.89 RAP: 5.00 mmHg RVSP: 14.51 mmHg FINDINGS -------- Sinus rhythm. This was a technically difficult study with suboptimal views. The left ventricular size is normal. There is moderate concentric left ventricular hypertrophy. O verall left ventricular systolic function is normal with, an EF between 55 - 60 %. The right ventricle is normal in size. The left atrial size is normal. The right atrial size is normal. Lumason used The aortic valve is trileaflet, and appears structurally normal. No aortic stenosis or regurgitation. The mitral valve is normal. Mild mitral regurgitation is present. The tricuspid valve appears structurally normal. Trace tricuspid regurgitation present. Right miesha tricular systolic pressure is normal at < 35 mmHg. The pulmonic valve was not well visualized. There is no pulmonic regurgitation present. The aortic root size is normal. IVC Not well visulized. There is no pericardial effusion. CONCLUSIONS -------- 1. There is moderate concentric left ventricular hypertrophy. 2. Overall left ventricular systolic function is normal with, an EF between 55 - 60 %. 3. The left atrial size is normal. 4. The aortic valve is trileaflet, and appears structurally normal. No aortic stenosis or regurgitati on. 5. Mild mitral regurgitation is present. 6. Trace tricuspid regurgitation present. 7. There is no pericardial effusion. MANAGER FLOOR: Juli Guerra RDCS
[2020-09-07 20:31] LABS: Glucose,Whole Blood 102 mg/dL (75-99)
[2020-09-07] MEDS: ATORVASTATIN 20 MG TAB PO SCH (20:44)
[2020-09-07] MEDS: oxyCODONE-APAP 7.5-325MG 1 EACH TAB PO PRN (20:45)
[2020-09-07] MEDS ORDERED: RIVAROXABAN 20 MG TAB PO SCH (21:00)
[2020-09-07] MEDS: RIVAROXABAN 20 MG TAB PO SCH (21:20)
[2020-09-08] MEDS: HYDROmorphone 0.5 MG/0.5 ML SYRINGE IVP PRN ×5 (02:11→20:41)
[2020-09-08] MEDS: LEVOTHYROXINE 25 MCG TAB PO SCH (05:29)
[2020-09-08 06:49] LABS: Glucose,Whole Blood 110 mg/dL (75-99)
[2020-09-08 07:15] LABS: Basophils % (A) 0 %; Eosinophils # (A) 0.3 k/uL (0-0.7); Eosinophils % (A) 3 %; HCT 34.8 % (34.0-46.0); HGB 11.1 gm/dL (11.4-16.0); Hypochromasia Slight; Lymphocytes # (A) 3.7 k/uL (1.0-4.8); Lymphocytes % (A) 38 %; MCH 27.9 pg (25.0-35.0); MCV 87.4 fL (80.0-100.0); Mean Platelet Volume 7.8; Monocytes # (A) 0.9 k/uL (0-1.0); Monocytes % (A) 9 %; Neutrophils # (A) 4.7 k/uL (1.3-7.7); Neutrophils % (A) 48 %; Platelet Count 341 k/uL (150-450); RBC 3.98 m/uL (3.80-5.40); RDW 14.6 % (11.5-15.5); WBC 9.8 k/uL (3.8-10.6)
[2020-09-08] MEDS: clonazePAM 1 MG TAB PO SCH ×4 (09:23→21:56)
[2020-09-08] MEDS: FLECAINIDE 50 MG TAB PO SCH ×2 (09:23→20:40)
[2020-09-08] MEDS: ARIPiprazole 2 MG TAB PO SCH (09:24)
[2020-09-08] MEDS: FLUoxetine HCL 20 MG CAP PO SCH (09:24)
[2020-09-08] MEDS: PANTOPRAZOLE 40 MG TABLET PO SCH ×2 (09:24→20:40)
[2020-09-08] MEDS: ACYCLOVIR 200 MG CAP PO SCH ×2 (09:24→20:40)
[2020-09-08] MEDS: FUROSEMIDE 40 MG TAB PO SCH ×2 (09:24→15:39)
[2020-09-08] MEDS: POTASSIUM CHLORIDE ER 20 MEQ TAB.ER PO SCH (09:24)
[2020-09-08] MEDS: METOPROLOL SUCCINATE (ER) 100 MG TAB.ER.24H PO SCH (09:24)
[2020-09-08] MEDS: LOSARTAN 25 MG TAB PO SCH (09:24)
[2020-09-08] MEDS: oxyCODONE-APAP 7.5-325MG 1 EACH TAB PO PRN ×2 (09:30→19:03)
--- NOTE | 2020-09-08 10:22 | P.PN ---
Subjective HISTORY OF PRESENTING ILLNESS This is a pleasant 75-year-old female past medical history significant for COPD on home oxygen 4L, paroxysmal atrial fibrillation on xarelto, history of ablation, permanent pacemaker implantation, obstructive sleep apnea, fibromyalgia, hypertension and obesity. She follows in the office with Dr. Leong. She is seen and examined sitting up in bed in no acute distress. She is continuing to feel lower extremity pain. No chest pain, shortness of breath, dizziness or palpitations. Blood pressure 144/77 heart rate 67 afebrile and maintaining oxygen saturation on nasal cannula. Echocardiogram obtained reveals preserved LV systolic function with EF 55-60% and mild MR. Neurology is following and recommends epilepsy monitoring and physical therapy. PHYSICAL EXAMINATION CONSTITUTIONAL: No apparent distress. HEENT: Head is normocephalic. Pupils are equal, round. Sclerae anicteric. Mucous membranes of the mouth are moist. No JVD. No carotid bruit. CHEST EXAMINATION: Lungs are clear to auscultation. No chest wall tenderness is noted on palpation or with deep breathing. HEART EXAMINATION: Regular rate and rhythm. S1, S2 heard. Systolic ejection murmur at the left sternal border, no gallops or rub. EXTREMITIES: 2+ peripheral pulses, trace lower extremity edema and no calf tenderness. ASSESSMENT Generalized weakness Lower extremity edema, possible some component of venous insufficiency Paroxysmal atrial fibrillation on xarelto, currently maintaining sinus mechanism status post ablation Permanent pacemaker implantation Obstructive sleep apnea COPD on home oxygen Hypertension Fibromyalgia Obesity, BMI 39 Former nicotine dependence PLAN Clinically stable from a cardiac perspective. Ongoing medical management and treatment of ongoing weakness and lower extremity pain. Follow up with Dr. Leong upon discharge, we will follow along as needed. Nurse Practitioner note has been reviewed, I agree with a documented findings and plan of care. Patient was seen and examined. Objective - Vital Signs Vital signs: Vital Signs Temp 97.5 F L 09/08/20 07:15 Pulse 67 09/08/20 07:15 Resp 14 09/08/20 07:15 BP 144/77 09/08/20 07:15 Pulse Ox 98 09/08/20 07:15 Intake & Output 09/07/20 09/08/20 09/08/20 18:59 06:59 18:59 Intake Total 480 Balance 480 Intake: Oral 480 Other: Voiding Method Bedside Commode Bedside Commode Diaper Diaper Incontinent Incontinent # Voids 3 1 - Labs CBC & Chem 7: 09/08/20 05:57 09/07/20 06:12 Labs: Abnormal Lab Results - Last 24 Hours (Table) 09/07/20 09/07/20 09/07/20 Range/Units 06:12 06:12 11:48 Hgb (11.4-16.0) gm/dL POC Glucose (mg/dL) 116 H (75-99) mg/dL Hemoglobin A1c 7.2 H (4.0-6.0) % TSH <0.010 L (0.350-5.500) uIU/mL 09/07/20 09/07/20 09/08/20 Range/Units 16:48 20:30 05:57 Hgb 11.1 L (11.4-16.0) gm/dL POC Glucose (mg/dL) 107 H 102 H (75-99) mg/dL Hemoglobin A1c (4.0-6.0) % TSH (0.350-5.500) uIU/mL 09/08/20 Range/Units 06:48 Hgb (11.4-16.0) gm/dL POC Glucose (mg/dL) 110 H (75-99) mg/dL Hemoglobin A1c (4.0-6.0) % TSH (0.350-5.500) uIU/mL
--- NOTE | 2020-09-08 11:41 | P.PN ---
Subjective Progress Note Date: 09/08/20 Principal diagnosis: COPD overall stable oxygen dependent 4 L nasal cannula Exacerbation of CHF likely acute on chronic diastolic heart failure Lower extremity edema Suspect moderate to severe pulmonary hypertension Chronic hypoxic respiratory failure Chronic atrial fibrillation Neck pain and back pain recurrent fall Lower extremity and back pain likely neuropathic pain 09/08/2020, patient seen eval examined during the rounds labs reviewed medications reviewed care plan discussed, respiratory status remains stable patient get short of breath on activity and exertion, denies any chest pain denies any cough or sputum production patient continued to have pain in the spine and lower extremity, swelling in the lower extremity have improved significantly the right and left leg however remains different in size with the right slightly bigger than the left, duplex ultrasound lower extremity negative negative, echocardiogram reviewed ejection fraction of 55-60%, no evidence of mild to severe pulmonary hypertension has been noted, currently patient continued to complain of pain he dominantly in the back and the muscles of the lower extremity This is a 75-year-old morbidly obese female well-known to me patient has a history of extensive smoking in remote past quit about 15 years ago, she is oxygen dependent end-stage COPD she uses 4 L oxygen she could not use the BiPAP machine or a CPAP machine at home, also declined evaluation for sleep disorder breathing and sleep apnea in the past, presented into the hospital with generalized weakness diffuse neck pain and back pain, mild shortness of breath however denies any cough sputum production, increased swelling of the lower extremity, patient on arrival to emergency department has received Lasix with good urine output, leg swelling significantly improve very mildly erythematous superficial is present in the lower extremity, her breathing is stable however she does get dyspnea on exertion and activity, her chest x-ray is stable with some subsegmental atelectasis at the left lower base, a prior x-rays, duplex ultrasound lower extremity is negative for DVT, C-spine CT performed results are pending, echocardiogram is pending as well,, patient does have a history of chronic atrial fibrillation has been on direct oral anticoagulant prior history of ambulation permanent pacemaker Objective - Vital Signs Vital signs: Vital Signs Temp 97.5 F L 09/08/20 07:15 Pulse 67 09/08/20 07:15 Resp 14 09/08/20 07:15 BP 144/77 09/08/20 07:15 Pulse Ox 98 09/08/20 07:15 Intake & Output 09/07/20 09/08/20 09/08/20 18:59 06:59 18:59 Intake Total 480 Balance 480 Intake: Oral 480 Other: Voiding Method Bedside Commode Bedside Commode Diaper Diaper Incontinent Incontinent # Voids 3 1 - Exam - Constitutional General appearance: disheveled, morbidly obese - EENT Eyes: EOMI, PERRLA Ears: bilateral: normal - Neck Neck: normal ROM Carotids: bilateral: upstroke normal - Respiratory Respiratory: bilateral: CTA, diminished - Cardiovascular Rhythm: regular Heart sounds: normal: S1, S2 - Neurologic Neurologic: CNII-XII intact - Musculoskeletal Swelling in the lower extremity improved according to staff and patient as well Musculoskeletal: gait normal, generalized weakness, strength equal bilaterally - Psychiatric Psychiatric: A&O x's 3, appropriate affect, intact judgment & insight - Labs CBC & Chem 7: 09/08/20 05:57 09/07/20 06:12 Labs: Abnormal Lab Results - Last 24 Hours (Table) 09/07/20 09/07/20 09/07/20 Range/Units 06:12 06:12 11:48 Hgb (11.4-16.0) gm/dL POC Glucose (mg/dL) 116 H (75-99) mg/dL Hemoglobin A1c 7.2 H (4.0-6.0) % TSH <0.010 L (0.350-5.500) uIU/mL 09/07/20 09/07/20 09/08/20 Range/Units 16:48 20:30 05:57 Hgb 11.1 L (11.4-16.0) gm/dL POC Glucose (mg/dL) 107 H 102 H (75-99) mg/dL Hemoglobin A1c (4.0-6.0) % TSH (0.350-5.500) uIU/mL 09/08/20 Range/Units 06:48 Hgb (11.4-16.0) gm/dL POC Glucose (mg/dL) 110 H (75-99) mg/dL Hemoglobin A1c (4.0-6.0) % TSH (0.350-5.500) uIU/mL Assessment and Plan Assessment: Left lower lobe atelectasis COPD overall stable oxygen dependent 4 L nasal cannula Exacerbation of CHF likely acute on chronic diastolic heart failure Lower extremity edema Lower extremity and back pain likely related to neuropathic pain Chronic hypoxic respiratory failure Chronic atrial fibrillation Neck pain and back pain recurrent fall Morbid obesity and obstructive sleep apnea Plan: Atelectasis of the left lower lobe slightly more than the baseline will get a computed tomography scan of the chest without contrast Bronchodilators as needed Continue supplemental oxygen Gentle diuresis Reviewed echocardiogram result Patient will likely need a polysomnogram as outpatient Further recommendations pending plan of care as per clinical response of the patient Time with Patient: Greater than 30
[2020-09-08 11:44] LABS: Glucose,Whole Blood 120 mg/dL (75-99)
--- NOTE | 2020-09-08 13:12 | CT ---
EXAMINATION TYPE: CT chest wo con DATE OF EXAM: 09/08/2020 COMPARISON: Chest CT October 27, 2016 HISTORY: CHF, LLL atelectasis CT DLP: 1018.5 mGycm. Automated Exposure Control for Dose Reduction was Utilized. TECHNIQUE: CT scan of the thorax is performed without IV contrast. FINDINGS: LUNGS: Persistent mild to moderate bibasilar linear scarring and/or atelectasis is stable with slight ly more prominent dependent atelectasis in the bases. No pleural effusion or pneumothorax. No suspici ous nodules or masses. MEDIASTINUM: Lack of IV contrast is noted to limit evaluation for mediastinal and especially hilar ad enopathy. There are no definitive new greater than 1 cm hilar or mediastinal lymph nodes. No new pe ricardial effusion is seen. Persistent cardiomegaly with dual lead pacemaker. Enlarged right and left pulmonary arteries, CT (from underlying pulmonary hypertension. Ectasia to ascending aorta up to 3.8 cm axial image 26 is redemonstrated. Heterogeneous thyroid. OTHER: Some cortical thinning and visualized portion of left kidney. Surgical change right humerus no romeo on localizer.Slight underlying scoliotic curvature. IMPRESSION: Cardiomegaly redemonstrated without new suspicious acute pulmonary process.
[2020-09-08 13:35] LABS: African American GFR (CKD) 99.6 (60.0-200.0); Albumin 3.9 g/dL (3.80-4.90); Albumin/Globulin Ratio 2.17 (1.60-3.17); BUN/Creat Ratio 21.43 Ratio (12.00-20.00); Calcium 9.3 mg/dL (8.7-10.3); Globulin 1.8 g/dL (1.6-3.3); Potassium 3.9 mmol/L (3.5-5.5); Total Bilirubin 0.6 mg/dL (0.3-1.2); Total Protein 5.7 g/dL (6.2-8.2)
[2020-09-08] MEDS: ALBUTEROL NEBULIZED 2.5 MG/3 ML INHALATION PRN (15:18)
[2020-09-08] MEDS: GABAPENTIN 100 MG CAP PO SCH ×2 (15:39→21:39)
--- NOTE | 2020-09-08 16:09 | P.PN ---
Subjective Progress Note Date: 09/08/20 The patient was seen at bedside and feel she is doing well. Denies any further fall since she has been in the hospital. Objective - Vital Signs Vital signs: Vital Signs Temp 98.2 F 09/08/20 13:05 Pulse 79 09/08/20 15:43 Resp 16 09/08/20 13:05 BP 120/59 09/08/20 13:05 Pulse Ox 93 L 09/08/20 15:18 Intake & Output 09/07/20 09/08/20 09/08/20 18:59 06:59 18:59 Intake Total 480 Balance 480 Intake: Oral 480 Other: Voiding Method Bedside Commode Bedside Commode Diaper Diaper Incontinent Incontinent # Voids 3 1 - Exam GENERAL: The patient is lying in bed and is not in acute distress. INTEGUMENTARY: Bilateral lower extremity edema. Pitting edema 1+ to 2+. NEUROLOGICAL: Higher mental function: The patient is awake, alert, oriented to self, place and time. Patient is following commands. No aphasia and no neglect. Cranial nerves: The pupils are round, equal and reactive to light and accommodation. Visual bennett are full to confrontation throughout. Extraocular movement is intact no nystagmus is noted. Facial sensation is normal to touch throughout. The facial strength is normal throughout. Hearing is normal bilate rally to hand rub. Tongue is midline and moved [id number] without any difficulty. No dysarthria is noted. Shoulder shrug is normal bilaterally. Motor: Gait is cautious but no swaying of one side or other. The strength is 5 over 5 throughout. Normal tone and bulk. Cerebellum: Normal finger to nose heel to chin bilaterally. Sensation: Sensation is normal to touch throughout. She has pain to touch of lower extremity where edema is located. Reflexes (right/left): 2+ throughout. Plantars are downgoing bilaterally. - Labs CBC & Chem 7: 09/08/20 05:57 09/08/20 05:57 Labs: Abnormal Lab Results - Last 24 Hours (Table) 09/07/20 09/07/20 09/07/20 Range/Units 06:12 16:48 20:30 Hgb (11.4-16.0) gm/dL Carbon Dioxide (21.6-31.8) mmol/L BUN/Creatinine Ratio (12.00-20.00) Ratio POC Glucose (mg/dL) 107 H 102 H (75-99) mg/dL Hemoglobin A1c 7.2 H (4.0-6.0) % Alkaline Phosphatase (41-126) U/L Total Protein (6.2-8.2) g/dL 09/08/20 09/08/20 09/08/20 Range/Units 05:57 05:57 06:48 Hgb 11.1 L (11.4-16.0) gm/dL Carbon Dioxide 32.0 H (21.6-31.8) mmol/L BUN/Creatinine Ratio 21.43 H (12.00-20.00) Ratio POC Glucose (mg/dL) 110 H (75-99) mg/dL Hemoglobin A1c (4.0-6.0) % Alkaline Phosphatase 40 L (41-126) U/L Total Protein 5.7 L (6.2-8.2) g/dL 09/08/20 Range/Units 11:39 Hgb (11.4-16.0) gm/dL Carbon Dioxide (21.6-31.8) mmol/L BUN/Creatinine Ratio (12.00-20.00) Ratio POC Glucose (mg/dL) 120 H (75-99) mg/dL Hemoglobin A1c (4.0-6.0) % Alkaline Phosphatase (41-126) U/L Total Protein (6.2-8.2) g/dL Assessment and Plan Assessment: This is a 75-year-old woman with multiple medical problems that presented to the emergency department on 09/06/2020 with difficulty walking and and lower extremity swelling. Also he was consulted for recurrent falls. It seems that that neurology was also consulted in 2017 for the same thing. Recurrent episodes of chronic falls: Unknown exact etiology. Possibly uncontrolled diabetes can cause autonomic dysfunction which can lead to fall. History of seizures (Had EMU at [facility] 7 years ago per patient and was told had seizure) History of involunary movement Syncopal episodes Cervical spondylosis (greatest C5-C6 and C4-C5) but does not seem cause of falls. Diabetes melitius --uncontrolled Sleep apnea on CPAP History of fibromyalgia Atrial fibrillation status post ablation and on anticoagulation (Xarelto) Heart failure status post dual-chamber pacer History of pulmonary embolism COPD on nasal cannula Plan: I ordered orthostatic vitals and is pending. Possibly consider tilt table test if orthostatics as negative. 2-D echo is reported as moderate flexor left ventricle hypertrophy. Ejection fraction 55-60%. Left atrial size is normal. No aortic stenosis or regurgitation. Mild mitral regurgitation is present. CT cervical spine: Reported as degenerative disc changes greatest at C5-C6 and C4-C5. On covert vertebral joint hypertrophy contributing to form no narrowing within the mid cervical spine as discussed above. TSH level: It is less than 0.015 which is considered low but the free T4 is 2.1 for which is considered normal. This was done on 01/19/2020. I will repeat the TSH. Hemoglobin A1c: 7.2 (last one was on 08/05/2016 and was 5.8). Physical therapy and occupation therapy are on board Regarding the patient reported history of seizure she is on Keppra 1500 mg 1 tablet twice a day Patient is on Klonopin 1 mg one tablet 4 times a day. I recommend going down on Klonopin since falls are common with patient taken benzodiazepine but patient stated it will worsen her involunary movement. I recommended the patient to get as an epilepsy monitoring unit hopefully for about a week that we can monitor these episodes of falls and to see is there any epileptogenic associate with this or are they just purely involuntary movement. I notified her to attempted to follow-up with [facility] regarding monitoring unit as well as possibly follow up with a movement disorder at [facility] if she received a diagnosis of involuntary movement at [facility] 6-7 years ago according to the patient. I notified the patient that if she can follow-up with [facility] Neurology team since she is known to them in the past. But she stated she wants to follow-up with a local neurologist and chose Dr. Clement Daniel and is to follow-up within 1-2 weeks. Patient was notified to use a cane or walker at home if she is having the and th rae falls to avoid any severe trauma. I don't feel safe to the patient to be discharged home because of these frequent falls and these seems chronic. Patient lives at home alone. The therapeutic case manager notified me yesterday that she will attempt to have patient discharged to inpatient rehab. Cardiology team was consulted for the lower extremity swelling with history of congestive heart failure. The plan was discussed with the patient's nurse. Austin Aly MD Neuro-Hospitalist Time with Patient: Less than 30
[2020-09-08 16:47] LABS: Glucose,Whole Blood 116 mg/dL (75-99)
[2020-09-08 20:23] LABS: Glucose,Whole Blood 152 mg/dL (75-99)
[2020-09-08] MEDS: RIVAROXABAN 20 MG TAB PO SCH (20:40)
[2020-09-08] MEDS: ATORVASTATIN 20 MG TAB PO SCH (21:39)
--- NOTE | 2020-09-08 23:20 | PN ---
PROGRESS NOTE This is a 75-year-old white female of the chest shows cardiomegaly, no suspicious process. Complaining of severe pain in her legs since being off Neurontin. We are going to restart the Neurontin 100 t.i.d. Cardiovascular: S1, S2. Lungs: Clear. GI: Soft. Extremities: Two to 3+ edema. ASSESSMENT: 1. Neuropathy. 2. Lumbar disc disease. 3. Chronic obstructive pulmonary disease. 4. Congestive heart failure, diastolic. Continue with current treatments. Possible discharge home tomorrow. MMODL / IJN: [id number] /
[2020-09-09] MEDS: HYDROmorphone 0.5 MG/0.5 ML SYRINGE IVP PRN ×5 (01:27→20:38)
[2020-09-09] MEDS: LEVOTHYROXINE 25 MCG TAB PO SCH (05:36)
[2020-09-09 07:18] LABS: Glucose,Whole Blood 103 mg/dL (75-99)
[2020-09-09] MEDS: oxyCODONE-APAP 7.5-325MG 1 EACH TAB PO PRN ×2 (08:33→22:15)
[2020-09-09] MEDS: FLUoxetine HCL 20 MG CAP PO SCH (08:35)
[2020-09-09] MEDS: ACYCLOVIR 200 MG CAP PO SCH ×2 (08:35→20:39)
[2020-09-09] MEDS: clonazePAM 1 MG TAB PO SCH ×4 (08:35→20:39)
[2020-09-09] MEDS: PANTOPRAZOLE 40 MG TABLET PO SCH ×2 (08:35→20:39)
[2020-09-09] MEDS: GABAPENTIN 100 MG CAP PO SCH ×3 (08:35→20:39)
[2020-09-09] MEDS: POTASSIUM CHLORIDE ER 20 MEQ TAB.ER PO SCH (08:36)
[2020-09-09] MEDS: ARIPiprazole 2 MG TAB PO SCH (08:36)
[2020-09-09] MEDS: FLECAINIDE 50 MG TAB PO SCH ×2 (08:36→20:39)
[2020-09-09] MEDS: LOSARTAN 25 MG TAB PO SCH (08:36)
[2020-09-09] MEDS: FUROSEMIDE 40 MG TAB PO SCH ×2 (08:36→16:21)
[2020-09-09] MEDS: METOPROLOL SUCCINATE (ER) 100 MG TAB.ER.24H PO SCH (08:37)
--- NOTE | 2020-09-09 10:20 | P.PN ---
Subjective Progress Note Date: 09/09/20 Principal diagnosis: COPD overall stable oxygen dependent 4 L nasal cannula Exacerbation of CHF likely acute on chronic diastolic heart failure Lower extremity edema Suspect moderate to severe pulmonary hypertension Chronic hypoxic respiratory failure Chronic atrial fibrillation Neck pain and back pain recurrent fall Lower extremity and back pain likely neuropathic pain 09/09/2019, patient sitting upright in the bed he remains on oxygen, denies any chest pain or shortness of breath denies any sputum production, puga has been started on Neurontin since last night feels slightly better back pain and leg pain, computed tomography scan of the chest is reviewed, atelectasis in the bases looks like dependent atelectasis no suspicious acute processes identified patient advised to care take deep breathing exercise and incentive spirometry 09/08/2020, patient seen eval examined during the rounds labs reviewed medications reviewed care plan discussed, respiratory status remains stable patient get short of breath on activity and exertion, denies any chest pain denies any cough or sputum production patient continued to have pain in the spine and lower extremity, swelling in the lower extremity have improved significantly the right and left leg however remains different in size with the right slightly bigger than the left, duplex ultrasound lower extremity negative negative, echocardiogram reviewed ejection fraction of 55-60%, no evidence of mild to severe pulmonary hypertension has been noted, currently patient continued to complain of pain he dominantly in the back and the muscles of the lower extremity This is a 75-year-old morbidly obese female well-known to me patient has a history of extensive smoking in remote past quit about 15 years ago, she is oxygen dependent end-stage COPD she uses 4 L oxygen she could not use the BiPAP machine or a CPAP machine at home, also declined evaluation for sleep disorder breathing and sleep apnea in the past, presented into the hospital with generalized weakness diffuse neck pain and back pain, mild shortness of breath however denies any cough sputum production, increased swelling of the lower extremity, patient on arrival to emergency department has received Lasix with good urine output, leg swelling significantly improve very mildly erythematous superficial is present in the lower extremity, her breathing is stable however she does get dyspnea on exertion and activity, her chest x-ray is stable with some subsegmental atelectasis at the left lower base, a prior x-rays, duplex ultrasound lower extremity is negative for DVT, C-spine CT performed results are pending, echocardiogram is pending as well,, patient does have a history of chronic atrial fibrillation has been on direct oral anticoagulant prior history of ambulation permanent pacemaker Objective - Vital Signs Vital signs: Vital Signs Temp 98.5 F 09/09/20 05:00 Pulse 70 09/09/20 05:00 Resp 16 09/09/20 05:00 BP 120/81 09/09/20 05:00 Pulse Ox 97 09/09/20 05:00 Intake & Output 09/08/20 09/09/20 09/09/20 18:59 06:59 18:59 Intake Total 240 Balance 240 Intake: Oral 240 Other: Voiding Method Toilet # Voids 3 2 - Exam - Constitutional General appearance: disheveled, morbidly obese - EENT Eyes: EOMI, PERRLA Ears: bilateral: normal - Neck Neck: normal ROM Carotids: bilateral: upstroke normal - Respiratory Respiratory: bilateral: CTA, diminished - Cardiovascular Rhythm: regular Heart sounds: normal: S1, S2 - Neurologic Neurologic: CNII-XII intact - Musculoskeletal Swelling in the lower extremity improved according to staff and patient as well Musculoskeletal: gait normal, generalized weakness, strength equal bilaterally - Psychiatric Psychiatric: A&O x's 3, appropriate affect, intact judgment & insight - Labs CBC & Chem 7: 09/08/20 05:57 09/08/20 05:57 Labs: Abnormal Lab Results - Last 24 Hours (Table) 09/08/20 09/08/20 09/08/20 Range/Units 05:57 11:39 16:45 Carbon Dioxide 32.0 H (21.6-31.8) mmol/L BUN/Creatinine Ratio 21.43 H (12.00-20.00) Ratio POC Glucose (mg/dL) 120 H 116 H (75-99) mg/dL Alkaline Phosphatase 40 L (41-126) U/L Total Protein 5.7 L (6.2-8.2) g/dL 09/08/20 09/09/20 Range/Units 20:22 07:16 Carbon Dioxide (21.6-31.8) mmol/L BUN/Creatinine Ratio (12.00-20.00) Ratio POC Glucose (mg/dL) 152 H 103 H (75-99) mg/dL Alkaline Phosphatase (41-126) U/L Total Protein (6.2-8.2) g/dL Assessment and Plan Assessment: Left lower lobe atelectasis as well as right lower lobe, appeared to be independent atelectasis COPD overall stable oxygen dependent 4 L nasal cannula Exacerbation of CHF likely acute on chronic diastolic heart failure Lower extremity edema Lower extremity and back pain likely related to neuropathic pain Chronic hypoxic respiratory failure Chronic atrial fibrillation Neck pain and back pain recurrent fall Morbid obesity and obstructive sleep apnea Plan: Computed tomography scan of the chest reviewed bilateral dependent atelectasis patient instructed to do deep breathing exercises incentive spirometry Bronchodilators as needed Continue supplemental oxygen Gentle diuresis Reviewed echocardiogram result Patient will likely need a polysomnogram as outpatient Further recommendations pending plan of care as per clinical response of the patient Time with Patient: Greater than 30
[2020-09-09 11:24] LABS: Glucose,Whole Blood 129 mg/dL (75-99)
[2020-09-09 17:30] LABS: Glucose,Whole Blood 119 mg/dL (75-99)
[2020-09-09] MEDS: ATORVASTATIN 20 MG TAB PO SCH (20:39)
[2020-09-09] MEDS: RIVAROXABAN 20 MG TAB PO SCH (20:39)
[2020-09-09 20:44] LABS: Glucose,Whole Blood 122 mg/dL (75-99)
--- NOTE | 2020-09-09 23:23 | PN ---
PROGRESS NOTE This is a 75-year-old white female who has had better improvement with her swelling in her legs, better neuropathy improvement with the Neurontin low dose. She wants to stay one extra night. Dr. Ross said she could stay due to her breathing. Cardiovascular: S1, S2. Lungs: Transmitted upper airway sounds. HEMATOLOGY: Negative Homans. Psych: Fair mood and affect. Cranial nerves are intact. Temperature is 98, respiratory rate 16-18, pulse 62-74, 95% on 2 L. Blood pressure 106/68. Lungs are clear. ASSESSMENT: 1. Congestive heart failure, diastolic. 2. Chronic obstructive pulmonary disease. 3. Neuropathy. 4. Chronic neuritis. Prognosis guarded. Follow up in the next 24 to 48 hours for discharge. MMODL / IJN: [id number] /
[2020-09-10] MEDS: HYDROmorphone 0.5 MG/0.5 ML SYRINGE IVP PRN ×2 (02:08→10:29)
[2020-09-10] MEDS: LEVOTHYROXINE 25 MCG TAB PO SCH (05:37)
[2020-09-10 07:20] LABS: Glucose,Whole Blood 149 mg/dL (75-99)
[2020-09-10] MEDS: POTASSIUM CHLORIDE ER 20 MEQ TAB.ER PO SCH (08:08)
[2020-09-10] MEDS: LOSARTAN 25 MG TAB PO SCH (08:08)
[2020-09-10] MEDS: clonazePAM 1 MG TAB PO SCH ×2 (08:08→13:32)
[2020-09-10] MEDS: ARIPiprazole 2 MG TAB PO SCH (08:09)
[2020-09-10] MEDS: FUROSEMIDE 40 MG TAB PO SCH (08:09)
[2020-09-10] MEDS: FLECAINIDE 50 MG TAB PO SCH (08:09)
[2020-09-10] MEDS: METOPROLOL SUCCINATE (ER) 100 MG TAB.ER.24H PO SCH (08:10)
[2020-09-10] MEDS: ACYCLOVIR 200 MG CAP PO SCH (08:10)
[2020-09-10] MEDS: GABAPENTIN 100 MG CAP PO SCH (08:10)
[2020-09-10] MEDS: PANTOPRAZOLE 40 MG TABLET PO SCH (08:10)
[2020-09-10] MEDS: FLUoxetine HCL 20 MG CAP PO SCH (08:10)
[2020-09-10] MEDS ORDERED: SODIUM CHLORIDE 0.9% 1,000 ML IV SCH (09:00)
[2020-09-10] MEDS ORDERED: IV FLUID CONTINUATION 1,000 ML IV ONE (09:23)
--- NOTE | 2020-09-10 10:10 | P.PN ---
Subjective Progress Note Date: 09/10/20 Principal diagnosis: COPD overall stable oxygen dependent 4 L nasal cannula Exacerbation of CHF likely acute on chronic diastolic heart failure Lower extremity edema Suspect moderate to severe pulmonary hypertension Chronic hypoxic respiratory failure Chronic atrial fibrillation Neck pain and back pain recurrent fall Lower extremity and back pain likely neuropathic pain 09/10/2019, patient seen eval examined during the rounds labs reviewed medications reviewed care plan discussed, respiratory status remains stable, patient is going for tilt table testing as per recommendation of neurology service due to falls, 09/09/2019, patient sitting upright in the bed he remains on oxygen, denies any chest pain or shortness of breath denies any sputum production, puga has been started on Neurontin since last night feels slightly better back pain and leg pain, computed tomography scan of the chest is reviewed, atelectasis in the bases looks like dependent atelectasis no suspicious acute processes identified patient advised to care take deep breathing exercise and incentive spirometry 09/08/2020, patient seen eval examined during the rounds labs reviewed medications reviewed care plan discussed, respiratory status remains stable patient get short of breath on activity and exertion, denies any chest pain denies any cough or sputum production patient continued to have pain in the spine and lower extremity, swelling in the lower extremity have improved significantly the right and left leg however remains different in size with the right slightly bigger than the left, duplex ultrasound lower extremity negative negative, echocardiogram reviewed ejection fraction of 55-60%, no evidence of mild to severe pulmonary hypertension has been noted, currently patient c ontinued to complain of pain he dominantly in the back and the muscles of the lower extremity This is a 75-year-old morbidly obese female well-known to me patient has a history of extensive smoking in remote past quit about 15 years ago, she is oxygen dependent end-stage COPD she uses 4 L oxygen she could not use the BiPAP machine or a CPAP machine at home, also declined evaluation for sleep disorder breathing and sleep apnea in the past, presented into the hospital with generalized weakness diffuse neck pain and back pain, mild shortness of breath however denies any cough sputum production, increased swelling of the lower extremity, patient on arrival to emergency department has received Lasix with good urine output, leg swelling significantly improve very mildly erythematous superficial is present in the lower extremity, her breathing is stable however she does get dyspnea on exertion and activity, her chest x-ray is stable with some subsegmental atelectasis at the left lower base, a prior x-rays, duplex ultrasound lower extremity is negative for DVT, C-spine CT performed results are pending, echocardiogram is pending as well,, patient does have a history of chronic atrial fibrillation has been on direct oral anticoagulant prior history of ambulation permanent pacemaker Objective - Vital Signs Vital signs: Vital Signs Temp 98.2 F 09/10/20 01:57 Pulse 74 09/10/20 01:57 Resp 18 09/10/20 01:57 BP 108/68 09/10/20 01:57 Pulse Ox 95 09/10/20 01:57 Intake & Output 09/09/20 09/10/20 09/10/20 18:59 06:59 18:59 Intake Total 740 600 Balance 740 600 Intake: Oral 740 600 Other: # Voids 5 - Exam - Constitutional General appearance: disheveled, morbidly obese - EENT Eyes: EOMI, PERRLA Ears: bilateral: normal - Neck Neck: normal ROM Carotids: bilateral: upstroke normal - Respiratory Respiratory: bilateral: CTA, diminished - Cardiovascular Rhythm: regular Heart sounds: normal: S1, S2 - Neurologic Neurologic: CNII-XII intact - Musculoskeletal Swelling in the lower extremity improved according to staff and patient as well Musculoskeletal: gait normal, generalized weakness, strength equal bilaterally - Psychiatric Psychiatric: A&O x's 3, appropriate affect, intact judgment & insight - Labs CBC & Chem 7: 09/08/20 05:57 09/08/20 05:57 Labs: Abnormal Lab Results - Last 24 Hours (Table) 09/09/20 09/09/20 09/09/20 Range/Units 11:23 17:28 20:42 POC Glucose (mg/dL) 129 H 119 H 122 H (75-99) mg/dL 09/10/20 Range/Units 07:19 POC Glucose (mg/dL) 149 H (75-99) mg/dL Assessment and Plan Assessment: Left lower lobe atelectasis as well as right lower lobe, appeared to be independent atelectasis COPD overall stable oxygen dependent 4 L nasal cannula Exacerbation of CHF likely acute on chronic diastolic heart failure Recurrent falls Lower extremity edema Lower extremity and back pain likely related to neuropathic pain Chronic hypoxic respiratory failure Chronic atrial fibrillation Neck pain, lower extremity pain and back pain Morbid obesity and obstructive sleep apnea Plan: Computed tomography scan of the chest reviewed bilateral dependent atelectasis patient instructed to do deep breathing exercises incentive spirometry Bronchodilators as needed Continue supplemental oxygen Gentle diuresis Continue Neurontin Tilt table testing Reviewed echocardiogram result Patient will likely need a polysomnogram as outpatient Further recommendations pending plan of care as per clinical response of the patient Time with Patient: Greater than 30
--- NOTE | 2020-09-10 10:16 | P.PN ---
Subjective HISTORY OF PRESENTING ILLNESS This is a pleasant 75-year-old female past medical history significant for COPD on home oxygen 4L, paroxysmal atrial fibrillation on xarelto, history of ablation, permanent pacemaker implantation, obstructive sleep apnea, fibromyalgia, hypertension and obesity. She follows in the office with Dr. Leong. She is seen and examined sitting up in bed in no acute distress. No chest pain, shortness of breath, dizziness or palpitations. She was just up walking with physical therapy and walked unassisted up and down the hallway. She states her legs still hurt but has greatly improved. She denies chest pain, shortness of breath or palpitations in the last 24 hours. Blood pressure 108/68 heart rate 74 afebrile and maintaining oxygen saturation on nasal cannula. Orthostatic vital signs are unremarkable. She has been seen by neurology and they are recommending a Tilt Table test. PHYSICAL EXAMINATION CONSTITUTIONAL: No apparent distress. HEENT: Head is normocephalic. Pupils are equal, round. Sclerae anicteric. Mucous membranes of the mouth are moist. No JVD. No carotid bruit. CHEST EXAMINATION: Lungs are clear to auscultation. No chest wall tenderness is noted on palpation or with deep breathing. HEART EXAMINATION: Regular rate and rhythm. S1, S2 heard. Systolic ejection murmur at the left sternal border, no gallops or rub. EXTREMITIES: 2+ peripheral pulses, trace lower extremity edema and no calf tenderness. ASSESSMENT Generalized weakness Lower extremity edema, possible some component of venous insufficiency Paroxysmal atrial fibrillation on xarelto, currently maintaining sinus mechanism status post ablation Permanent pacemaker implantation Obstructive sleep apnea COPD on home oxygen Hypertension Fibromyalgia Obesity, BMI 39 Former nicotine dependence PLAN Tilt table test has been scheduled for today. However, she will be required to stand for 30 minutes in order to complete the test. She can be discharged and follow up with Dr. Leong for the results. Nurse Practitioner note has been reviewed, I agree with a documented findings and plan of care. Patient was seen and examined. Objective - Vital Signs Vital signs: Vital Signs Temp 98.2 F 09/10/20 01:57 Pulse 74 09/10/20 01:57 Resp 18 09/10/20 01:57 BP 108/68 09/10/20 01:57 Pulse Ox 95 09/10/20 01:57 Intake & Output 09/09/20 09/10/20 09/10/20 18:59 06:59 18:59 Intake Total 740 600 Balance 740 600 Intake: Oral 740 600 Other: # Voids 5 - Labs CBC & Chem 7: 09/08/20 05:57 09/08/20 05:57 Labs: Abnormal Lab Results - Last 24 Hours (Table) 09/09/20 09/09/20 09/09/20 Range/Units 11:23 17:28 20:42 POC Glucose (mg/dL) 129 H 119 H 122 H (75-99) mg/dL 09/10/20 Range/Units 07:19 POC Glucose (mg/dL) 149 H (75-99) mg/dL
[2020-09-10 11:30] LABS: Glucose,Whole Blood 129 mg/dL (75-99)
[2020-09-10] MEDS: oxyCODONE-APAP 7.5-325MG 1 EACH TAB PO PRN ×2 (11:49→15:53)
[2020-09-10 11:51] VITALS: BP 113/72; PULSE 78; RESP 16; TEMP 98.5
--- NOTE | 2020-09-10 15:00 | P.PN ---
Subjective Progress Note Date: 09/10/20 Patient seen at bedside and she feels that she is at baseline from a neurological standpoint. Denies of any weakness, numbness or visual disturbance that seems since admission. Denies of feeling dizziness. Objective - Vital Signs Vital signs: Vital Signs Temp 98.5 F 09/10/20 11:50 Pulse 78 09/10/20 11:50 Resp 16 09/10/20 11:50 BP 113/72 09/10/20 11:50 Pulse Ox 95 09/10/20 11:50 Intake & Output 09/09/20 09/10/20 09/10/20 18:59 06:59 18:59 Intake Total 740 600 Balance 740 600 Intake: Oral 740 600 Other: # Voids 5 - Exam GENERAL: The patient is lying in bed and is not in acute distress. INTEGUMENTARY: Bilateral lower extremity edema. Pitting edema 1+ to 2+. NEUROLOGICAL: Higher mental function: The patient is awake, alert, oriented to self, place and time. Patient is following commands. No aphasia and no neglect. Cranial nerves: The pupils are round, equal and reactive to light and accommodation. Visual bennett are full to confrontation throughout. Extraocular movement is intact no nystagmus is noted. Facial sensation is normal to touch throughout. The facial strength is normal throughout. Hearing is normal bilaterally to hand rub. Tongue is midline and moved [id number] without any difficulty. No dysarthria is noted. Shoulder shrug is normal bilaterally. Motor: Gait is cautious but no swaying of one side or other. The strength is 5 over 5 throughout. Normal tone and bulk. Cerebellum: Normal finger to nose heel to chin bilaterally. Sensation: Sensation is normal to touch throughout. She has pain to touch of lower extremity where edema is located. Reflexes (right/left): 2+ throughout. Plantars are downgoing bilaterally. - Labs CBC & Chem 7: 09/08/20 05:57 09/08/20 05:57 Labs: Abnormal Lab Results - Last 24 Hours (Table) 09/09/20 09/09/20 09/10/20 Range/Units 17:28 20:42 07:19 POC Glucose (mg/dL) 119 H 122 H 149 H (75-99) mg/dL 09/10/20 Range/Units 11:28 POC Glucose (mg/dL) 129 H (75-99) mg/dL Assessment and Plan Assessment: This is a 75-year-old woman with multiple medical problems that presented to the emergency department on 09/06/2020 with difficulty walking and and lower extremity swelling. Also he was consulted for recurrent falls. It seems that that neurology was also consulted in 2017 for the same thing. Recurrent episodes of chronic falls: Unknown exact etiology. Possibly uncontrolled diabetes can cause autonomic dysfunction which can lead to fall. History of seizures (Had EMU at [facility] 7 years ago per patient and was told had seizure) History of involunary movement Syncopal episodes Cervical spondylosis (greatest C5-C6 and C4-C5) but does not seem cause of falls. Diabetes melitius --uncontrolled Sleep apnea on CPAP History of fibromyalgia Atrial fibrillation status post ablation and on anticoagulation (Xarelto) Heart failure status post dual-chamber pacer History of pulmonary embolism COPD on nasal cannula Plan: Orthostatic were done and were negative. The supine blood pressure is 122/70 with a heart rate of 72, the sitting is a 127/82 with a heart rate of 69 and standing is 125/80 with a heart rate of 74. The patient had tilt table test and pending result (was told by patient's nurse she was pre-liminary result seems negative but not finalized report). 2-D echo is reported as moderate flexor left ventricle hypertrophy. Ejection fraction 55-60%. Left atrial size is normal. No aortic stenosis or regurgitation. Mild mitral regurgitation is present. CT cervical spine: Reported as degenerative disc changes greatest at C5-C6 and C4-C5. On covert vertebral joint hypertrophy contributing to form no narrowing within the mid cervical spine as discussed above. TSH level: It is less than 0.015 which is considered low but the free T4 is 2.1 for which is considered normal. This was done on 01/19/2020. I will repeat the TSH. Hemoglobin A1c: 7.2 (last one was on 08/05/2016 and was 5.8). Physical therapy and occupation therapy are on board Regarding the patient reported history of seizure she is on Keppra 1500 mg 1 tablet twice a day Patient is on Klonopin 1 mg one tablet 4 times a day. I recommend going down on Klonopin since falls are common with patient taken benzodiazepine but patient stated it will worsen her involunary movement. I recommended the patient to get as an epilepsy monitoring unit hopefully for about a week that we can monitor these episodes of falls and to see is there any epileptogenic associate with this or are they just purely involuntary movement. I notified her to attempted to follow-up with [facility] regarding monitoring unit as well as possibly follow up with a movement disorder at [facility] if she received a diagnosis of involuntary movement at [facility] 6-7 years ago according to the patient. I notified the patient that if she can follow-up with [facility] Neurology team since she is known to them in the past. But she stated she wants to follow-up with a local neurologist and chose Dr. Clement Daniel and is to follow-up within 1-2 weeks. Patient was notified to use a cane or walker at home if she is having the and these falls to avoid any severe trauma. I don't feel safe to the patient to be discharged home because of these frequent falls and these seems chronic. Patient lives at home alone. The case supervisor notified me yesterday that she will attempt to have patient discharged to inpatient rehab. Cardiology team was consulted for the lower extremity swelling with history of congestive heart failure. The plan was discussed with the patient's nurse. From a neurology perspective there is no further workup needed at this time. Neurology will sign off. Please reconsult if needed. Austin Aly MD Neuro-Hospitalist Time with Patient: Less than 30
[2020-09-12] MEDS ORDERED: NON FORMULARY DRUG (Dulaglutide [Trulicity] 1.5 MG/0.5 ML Pen.Injctr) SQ SCH (09:00)
--- NOTE | 2020-09-13 09:02 | P.PCN ---
Preoperative Diagnosis: Tilt table test Indication: Recurrent syncope Baseline 12-lead EKG shows sinus rhythm, IL interval at the upper limits of normal, narrow QRS, normal ST segments Tilt table test per protocol Baseline heart rate 75 beats a minute Baseline blood pressure 125/70 mmHg Patient was tilted upright at an angle of 70 per protocol She complained of a lot of back and leg pain. No dizziness A heart rate and blood pressure remained stable through the procedure She was laid supine at the end of the procedure Impression Sinus mechanism with a IL interval of the upper limits of normal Normal heart rate and blood pressure response to upright tilting
--- NOTE | 2020-09-14 13:11 | CDI ---
Documentation Clarification Form Date: 09/14/2020 12:38:10 PM From: ZULEMA Kasper Deborah Biskner, Woods Boss Phone: If you have any questions about this query, please contact Sarah Garzon Woods [employer], at [phone] between 8 am and 5 pm Admit Date: 09/07/2020 09:15:00 AM Patient Name: Zari Mae Visit Number: [id number] Discharge Date: 09/10/2020 05:15:00 PM ATTENTION: The Clinical Documentation Specialists (CDI) and [facility] Coding Staff appreciate your assistance in clarifying documentation. Please respond to the clarification below the line at the bottom and electronically sign. The CDI & [facility] Coding staff will review the response and follow-up if needed. Please note: Queries are made part of the Legal Health Record. If you have any questions, please contact the author of this message via ITS. Dr. James Mackay The patient has uncontrolled diabetes, as documented in progress note dated 09/10. History/Risk Factors: DM neuropathy, CHF, chronic afibrillation. Clinical Indicators: Glucose; 129, 119,122,149,129. A1C 7.2 In order to capture the severity of Illness and necessary documentation specificity, please clarify: DM Type 2 uncontrolled with hyperglycemia DM Type 2 uncontrolled with hypoglycemia Other, please specify Unable to Determine MTDD
== END 2020-09-10 17:15 | disposition home health service (06) | DRG 291 ==
LOC: EC 17:10 → 5NMEDONC 20:08 → OBSVTOIN 09-07 09:15
PROVIDERS: ADMIT Family Medicine; ATTEND Family Medicine
PROC: 4A03XB1 Measurement of Arterial Pressure, Peripheral, External Approach (ICD-10-PCS; principal; 2020-09-10 10:05)
PROC: 4A02XFZ Measurement of Cardiac Rhythm, External Approach (ICD-10-PCS; principal; 2020-09-10 10:05)
DX: I11.0 Hypertensive heart disease with heart failure (principal); J96.21 Acute and chronic respiratory failure with hypoxia; J98.11 Atelectasis; I50.33 Acute on chronic diastolic (congestive) heart failure; D64.9 Anemia, unspecified; E66.01 Morbid (severe) obesity due to excess calories; Z68.39 Body mass index [BMI] 39.0-39.9, adult; E78.5 Hyperlipidemia, unspecified; G40.909 Epilepsy, unspecified, not intractable, without status epilepticus; G47.33 Obstructive sleep apnea (adult) (pediatric); E11.40 Type 2 diabetes mellitus with diabetic neuropathy, unspecified; G89.4 Chronic pain syndrome; Z86.711 Personal history of pulmonary embolism; I27.20 Pulmonary hypertension, unspecified; I44.0 Atrioventricular block, first degree; I48.0 Paroxysmal atrial fibrillation; J44.9 Chronic obstructive pulmonary disease, unspecified; M47.812 Spondylosis without myelopathy or radiculopathy, cervical region; M51.9 Unspecified thoracic, thoracolumbar and lumbosacral intervertebral disc disorder; M79.7 Fibromyalgia; M81.0 Age-related osteoporosis without current pathological fracture; R29.6 Repeated falls; W01.0XXA Fall on same level from slipping, tripping and stumbling without subsequent striking against object, initial encounter; Z79.01 Long term (current) use of anticoagulants; Z79.82 Long term (current) use of aspirin; Z79.890 Hormone replacement therapy; Z79.899 Other long term (current) drug therapy; Z82.49 Family history of ischemic heart disease and other diseases of the circulatory system; Z82.62 Family history of osteoporosis; Z87.891 Personal history of nicotine dependence; Z90.81 Acquired absence of spleen; Z96.611 Presence of right artificial shoulder joint; Z99.81 Dependence on supplemental oxygen; Z95.0 Presence of cardiac pacemaker; Z88.5 Allergy status to narcotic agent; Z88.8 Allergy status to other drugs, medicaments and biological substances; Z91.048 Other nonmedicinal substance allergy status
CPT/HCPCS: 36415; 71046; 71250; 72125; 80048; 80053; 81003; 82550; 83036; 83605; 83735; 83880; 84439; 84443; 84484; 85025; 85610; 85730; 93005; 93306; 93660; 93970; 94640; 94760; 96374; 96375; 99285

== ENCOUNTER 2021-07-18 14:34 | Emergency (ER) | payer MEDICARE, OTHER ==
[2021-07-18 14:49] VITALS: BP 111/48; PULSE 67; RESP 20; TEMP 98.7
[2021-07-18] MEDS ORDERED: SODIUM CHLORIDE 0.9% 1,000 ML IV STA (15:12)
[2021-07-18 16:41] LABS: Basophils % (A) 0 %; Eosinophils # (A) 0.1 k/uL (0-0.7); Eosinophils % (A) 1 %; HCT 43.6 % (34.0-46.0); HGB 14.3 gm/dL (11.4-16.0); Lymphocytes # (A) 3.1 k/uL (1.0-4.8); Lymphocytes % (A) 27 %; MCH 29.6 pg (25.0-35.0); MCHC 32.8 g/dL (31.0-37.0); MCV 90.3 fL (80.0-100.0); Mean Platelet Volume 7.8; Monocytes # (A) 0.9 k/uL (0-1.0); Monocytes % (A) 8 %; Neutrophils # (A) 6.9 k/uL (1.3-7.7); Neutrophils % (A) 60 %; Platelet Count 440 k/uL (150-450); RBC 4.82 m/uL (3.80-5.40); RDW 13.4 % (11.5-15.5); WBC 11.5 k/uL (3.8-10.6)
[2021-07-18 16:48] LABS: INR 1.2 (<1.2); Partial Thromboplastin Time 28.5 sec (22.0-30.0); Prothrombin Time 12.2 sec (9.0-12.0)
[2021-07-18 16:52] LABS: Albumin 4.1 g/dL (3.5-5.0); Calcium 9.8 mg/dL (8.4-10.2); Magnesium 1.9 mg/dL (1.6-2.3); Potassium 5.6 mmol/L (3.5-5.1); Total Bilirubin 0.5 mg/dL (0.2-1.3)
--- NOTE | 2021-07-18 17:18 | XR ---
EXAMINATION TYPE: XR chest 2V DATE OF EXAM: 07/18/2021 COMPARISON: CT chest 09/08/2020 HISTORY: Weakness TECHNIQUE: Frontal and lateral views of the chest are obtained. FINDINGS: Left chest wall cardiac generator device with the lead tips in the right atrium and right v entricle. There is no focal consolidation, pleural effusion, or pneumothorax seen. Strandy opacities at the lef t base similar to prior. The cardiac silhouette size is within normal limits. The osseous structures are intact.Partially visualized plate and screw fixation of the right proximal humerus. IMPRESSION: No acute cardiopulmonary process.
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
[2021-07-18 17:42] LABS: Appearance,Urine Clear (Clear); Bilirubin,Urine Negative (Negative); Blood,Urine Negative (Negative); Color,Urine Light Yellow; Glucose,Urine (UA) Negative (Negative); Ketones,Urine Negative (Negative); Leukocyte Esterase,Urine Negative (Negative); Nitrite,Urine Negative (Negative); Protein,Urine Negative (Negative); Specific Gravity,Urine 1.006 (1.001-1.035); Urobilinogen,Urine <2.0 mg/dL (<2.0)
[2021-07-18] MEDS ORDERED: IBUPROFEN 600 MG TAB PO STA (17:43)
== END 2021-07-18 20:52 | disposition home or self-care (01) ==
LOC: EC 14:34
DX: K21.9 Gastro-esophageal reflux disease without esophagitis (principal); I48.91 Unspecified atrial fibrillation; J45.909 Unspecified asthma, uncomplicated; I50.9 Heart failure, unspecified; E78.5 Hyperlipidemia, unspecified; M19.90 Unspecified osteoarthritis, unspecified site; F41.9 Anxiety disorder, unspecified; F32.A Depression, unspecified; Z79.4 Long term (current) use of insulin; Z86.711 Personal history of pulmonary embolism; Z85.51 Personal history of malignant neoplasm of bladder; Z87.440 Personal history of urinary (tract) infections; Z95.0 Presence of cardiac pacemaker; Z87.891 Personal history of nicotine dependence; Z20.822 Contact with and (suspected) exposure to COVID-19
CPT/HCPCS: 36415; 71046; 80053; 81003; 83605; 83735; 84484; 85025; 85610; 85730; 87635; 93005; 99284

== ENCOUNTER 2021-10-09 11:40 | Observation (INO) | payer MEDICARE, OTHER ==
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
--- NOTE | 2021-10-09 13:24 | CT ---
EXAMINATION TYPE: CT brain cspine wo con DATE OF EXAM: 10/09/2021 COMPARISON: Cervical spine 09/07/2020 HISTORY: 76-year-old female pain after Trauma. Fall backwards. CT DLP: 1492.6 mGycm Automated exposure control for dose reduction was used. Technique: Examination of the head was done in axial plane without intravenous contrast. Coronal and sagittal reconstructions performed. CT of the cervical spine was obtained in axial plane without intravenous injection of contrast mater ial. Coronal and sagittal reformatted images were obtained from the axial views for evaluation of f ractures, spinal alignment and canal. FINDINGS: Head: There is no evidence of acute intracranial hemorrhage, acute ischemic changes, mass, mass-effect, or extra-axial fluid collection. There is no effacement of cerebral sulci or basal subarachnoid cister ns. There is no hydrocephalus. There is no midline shift. Eagle-white matter distinction is preserv ed. Partially empty sella. Mild cerebral cortical volume loss. Leftward nasal septal deviation. No calvarial fracture. Paranasal sinuses and mastoid air cells are w ell pneumatized. Orbits and globes are intact. Cervical spine: Possible 2.2 cm solid nodule of the right lobe of the thyroid gland can be further evaluated with ded icated thyroid ultrasound. Possible 2.2 cm additional nodule at the left thyroid isthmus. Pacer leads noted. No craniocervical junction abnormality, predental space widening, or prevertebral soft tissue swellin g. Moderate to advanced disc/endplate degenerative change particularly at C4-C7 levels. There are disc o steophyte complexes here which results in variable mild spinal canal stenoses., Likely more moderate at C5-C6. Degenerative grade 1 anterolisthesis C6-C7, C7-T1, T1-T2, and T2-T3. Multilevel advanced hypertrophic facet and uncovertebral joint arthropathy is present. No acute fracture of the cervical spine. Severe left neuroforaminal stenosis C3-C4 and on the right at C5-C6. Additional variable moderate vanesa ral foraminal stenoses throughout. Sagittal and coronal reformatted images confirm above findings. COMBINED IMPRESSION: 1. No acute intracranial abnormality seen. 2. No acute fracture of the cervical spine. Moderate to advanced multilevel spondylotic change as abo ve. 3. Nodular thyroid gland with a couple underlying possible nodules measuring up to 2.2 cm. Recommend dedicated thyroid ultrasound evaluation to assess the need for FNA.
--- NOTE | 2021-10-09 13:30 | XR ---
EXAMINATION TYPE: XR lumbar spine 3V, XR femur 2 views RT, XR thoracic spine 3V DATE OF EXAM: 10/09/2021 Comparison: Lumbar spine 02/17/2019 Clinical History: 76-year-old female with pain after fall Findings: Thoracic spine: Dextroconvex scoliosis. 12 rib bearing thoracic vertebral bodies. All pedicles are vi sualized. Right atrial and right ventricular pacer leads noted.-In the upper to mid thoracic spine. V ertebral body heights are preserved. Degenerative anterolistheses in the cervical spine and upper tho racic spine as mentioned on CT cervical spine report of the same date. Otherwise, alignment in the mi d and lower thoracic spine appears maintained. Lumbar spine: Levoconvex scoliosis. 5 lumbar type vertebral bodies. Moderate multilevel degenerative disc disease and endplate spondylosis. Hypertrophic facet arthropathy throughout with degenerative gr jun 1 anterolisthesis L4-L5. Vertebral body heights are preserved. Right femur: Patient's panniculus projects over the femoral neck region. There is tricompartmental d egenerative change at the knee, moderate to severe in the medial compartment. Otherwise, no acute fra cture is identified. Hip and knee articulations grossly intact. Impression: 1. Thoracic spine: S-shaped scoliosis thoracolumbar spine. [facility] in the upper and mid thoracic spine. Degenerative grade 1 anterolistheses in the cervical and upper thoracic spine as described on CT cerv ical spine report of the same day. No other malalignment or vertebral compression collapsing. 2. Lumbar spine: Moderate multilevel degenerative disc disease. Hypertrophic facet arthropathy with d egenerative grade 1 anterolisthesis L4-L5. No vertebral compression collapse. 3. Right femur: No acute osseous abnormality seen. Tricompartmental OA at the knee, moderate to sever e in the medial compartment.
[2021-10-09] MEDS ORDERED: NALOXONE 0.4 MG/ML 1 ML VIAL IV PRN (14:45)
[2021-10-09] MEDS ORDERED: ACETAMINOPHEN TAB 325 MG TAB PO PRN (14:45)
[2021-10-09] MEDS ORDERED: SODIUM CHLORIDE 0.9% 1,000 ML IV STA (15:12)
[2021-10-09] MEDS: MORPHINE SULFATE 4 MG/ML SYRINGE IV PRN ×2 (15:20→21:51)
[2021-10-09] MEDS: SODIUM CHLORIDE 0.9% 1,000 ML IV SCH (15:20)
[2021-10-09 15:35] LABS: Basophils % (A) 0 %; Eosinophils # (A) 0.1 k/uL (0-0.7); Eosinophils % (A) 1 %; HGB 13.7 gm/dL (11.4-16.0); Lymphocytes # (A) 1.7 k/uL (1.0-4.8); Lymphocytes % (A) 20 %; MCHC 31.8 g/dL (31.0-37.0); MCV 91.3 fL (80.0-100.0); Mean Platelet Volume 8.1; Monocytes # (A) 0.4 k/uL (0-1.0); Monocytes % (A) 5 %; Neutrophils # (A) 6.5 k/uL (1.3-7.7); Neutrophils % (A) 74 %; Platelet Count 390 k/uL (150-450); RBC 4.71 m/uL (3.80-5.40); RDW 13.4 % (11.5-15.5); WBC 8.9 k/uL (3.8-10.6)
[2021-10-09 15:45] LABS: Albumin 4.2 g/dL (3.5-5.0); Calcium 10.5 mg/dL (8.4-10.2); Potassium 4.8 mmol/L (3.5-5.1); Total Bilirubin 0.7 mg/dL (0.2-1.3); Total Protein 7.4 g/dL (6.3-8.2)
[2021-10-09] MEDS ORDERED: ALBUTEROL HFA INHALER INHALATION PRN (17:33)
[2021-10-09 18:08] LABS: Glucose,Whole Blood 103 mg/dL (75-99)
--- NOTE | 2021-10-09 18:13 | HP ---
HISTORY AND PHYSICAL This 76-year-old white female presented to the emergency room with a fall this morning. Multiple x-rays orthostatic hypotension, which she appears to have while she is admitted here as well as chronic dizziness which is worsening recently. Will get Neurology involved. Rule out CVA type process. History of severe orthostatic hypotension. Rule out any kind of seizure history. Home medicines are omeprazole, Xarelto. Please see list. They were reviewed. ALLERGIES were reviewed. Please see list. Review of systems negative except for mentioned above. Please see list. PAST MEDICAL HISTORY: Atrial fibrillation, asthma, cancer, COPD, GERD, fibromyalgia, adrenal insufficiency, cervical lumbar disc disease, pulmonary embolism, seizure, sleep apnea. PAST SURGICAL HISTORY: Back surgery, cardiac ablation, pacemaker. FAMILY HISTORY: Reviewed. Please see list. PHYSICAL EXAM: Alert and oriented x3 on . Vital signs are reviewed. She is orthostatic. Blood pressure dropped from 130s to 80s systolic. Cardiovascular S1, S2. Lungs scattered wheeze x4. ENT 4 L of oxygen. Extremities 2+ edema diffusely. Back: Cervical lumbar tenderness. Swelling in her bilateral knees. Blood pressure on admission was 123/108, O2 saturation 96 on 4 L, temperature 96.9, pulse 80 to 87, respiratory rate 14 to 16. ASSESSMENT: 1. Presyncope. 2. Leg injury. 3. Head contusion. 4. Severe osteoarthritis. 5. Degenerative disc disease, cervical lumbar spine, knee. 6. Thyroid nodule. 7. Suspect orthostatic hypotension. Rule out CVA. 8. Adrenal insufficiency. 9. Multiple medical problems. Please see further orders. MMODL / IJN: [id number] /
[2021-10-09 20:22] LABS: Glucose,Whole Blood 226 mg/dL (75-99)
[2021-10-09] MEDS ORDERED: FAMOTIDINE 20 MG TAB PO SCH (21:00)
[2021-10-09] MEDS: INSULIN ASPART (NovoLOG) 100 UNIT/ML VIAL SQ SCH (21:51)
[2021-10-09] MEDS: RIVAROXABAN 20 MG TAB PO SCH (21:53)
[2021-10-09] MEDS: levETIRAcetam 500 MG TAB PO SCH (21:53)
[2021-10-09] MEDS: FLECAINIDE 50 MG TAB PO SCH (21:54)
[2021-10-09] MEDS: SPIRONOLACTONE 25 MG TAB PO SCH (21:54)
[2021-10-09] MEDS: oxyCODONE-APAP 7.5-325MG 1 EACH TAB PO SCH (21:54)
[2021-10-09] MEDS: HYDROCORTISONE 20 MG TAB PO SCH (21:54)
[2021-10-09] MEDS: clonazePAM 0.5 MG TAB PO SCH (21:56)
[2021-10-09] MEDS: GABAPENTIN 300 MG CAP PO SCH (21:56)
[2021-10-09] MEDS: POTASSIUM CHLORIDE ER 20 MEQ TAB.ER PO SCH (21:56)
[2021-10-09] MEDS: ACYCLOVIR 200 MG CAP PO SCH (21:56)
[2021-10-10] MEDS: SODIUM CHLORIDE 0.9% 1,000 ML IV SCH ×2 (03:38→16:44)
[2021-10-10] MEDS: MORPHINE SULFATE 4 MG/ML SYRINGE IV PRN ×2 (04:58→13:55)
[2021-10-10] MEDS: LEVOTHYROXINE 25 MCG TAB PO SCH (05:35)
[2021-10-10 07:34] LABS: Glucose,Whole Blood 133 mg/dL (75-99)
[2021-10-10] MEDS: INSULIN ASPART (NovoLOG) 100 UNIT/ML VIAL SQ SCH ×5 (08:32→21:21)
[2021-10-10] MEDS: GABAPENTIN 300 MG CAP PO SCH ×3 (08:40→21:21)
[2021-10-10] MEDS: FAMOTIDINE 20 MG TAB PO SCH (08:40)
[2021-10-10] MEDS: oxyCODONE-APAP 7.5-325MG 1 EACH TAB PO SCH ×3 (08:40→21:19)
[2021-10-10] MEDS: ACYCLOVIR 200 MG CAP PO SCH ×2 (08:41→21:22)
[2021-10-10] MEDS: HYDROCORTISONE 20 MG TAB PO SCH ×2 (08:42→21:22)
[2021-10-10] MEDS: levETIRAcetam 500 MG TAB PO SCH ×3 (08:42→21:23)
[2021-10-10] MEDS: POTASSIUM CHLORIDE ER 20 MEQ TAB.ER PO SCH ×2 (08:42→21:22)
[2021-10-10] MEDS: ATORVASTATIN 40 MG TAB PO SCH (08:42)
[2021-10-10] MEDS: FLUoxetine HCL 20 MG CAP PO SCH (08:42)
[2021-10-10] MEDS: clonazePAM 0.5 MG TAB PO SCH ×3 (08:43→21:23)
[2021-10-10] MEDS: ARIPiprazole 2 MG TAB PO SCH (08:43)
[2021-10-10] MEDS: MIDODRINE 5 MG TAB PO SCH ×3 (08:44→17:37)
[2021-10-10] MEDS ORDERED: LOSARTAN 25 MG TAB PO SCH (09:00)
[2021-10-10] MEDS ORDERED: FUROSEMIDE 40 MG TAB PO SCH (09:00)
[2021-10-10] MEDS: FLECAINIDE 50 MG TAB PO SCH ×2 (09:54→21:22)
[2021-10-10] MEDS: METOPROLOL SUCCINATE (ER) 100 MG TAB.ER.24H PO SCH (09:54)
--- NOTE | 2021-10-10 10:10 | US ---
EXAMINATION TYPE: US thyroid st tissue head/neck DATE OF EXAM: 10/09/2021 COMPARISON: NONE CLINICAL HISTORY: nodule. CT showed nodule GLAND SIZE: Right Lobe: 5.0 x 2.1 x 2.6 cm cm Overall Parenchyma: heterogenous Left Lobe: 4.4 x 1.5 x 2.4 cm Overall Parenchyma: heterogeneous Isthmus Thickness: 0.9 cm NODULES- Innumerable nodules seen in bilateral lobes, largest measured RIGHT: # of nodules measured on right: 1 1. 2.4 x 2.0 X 2.1 cm, upper , , hyperechoic nodule, which is taller than wide, with smooth margins, without echogenic foci. Prior size: no prior LEFT: # of nodules measured on left: 1 1. 1.5 X 1.3 x 1.5 cm, mid , solid or almost completely solid, hypoechoic nodule, which is taller t hassan wide, with smooth margins, without echogenic foci. TR 5 Prior size: no prior ISTHMUS: # of nodules measured in the isthmus: 1 1. 1.9 X 1.8 x 1.2 cm, left lateral mixed cystic and solid, hyperechoic nodule, which is wider than tall, with smooth margins, without echogenic foci. Prior size: no prior Bilateral neck scanned, no evidence of lymphadenopathy. IMPRESSION: Highly suspicious nodule left lobe thyroid. Biopsy is recommended. 2017 ACR TI-RADS LEVEL: TI-RADS 5 - Highly Suspicious: Follow if > 0.5 cm, FNA if > 1.0 cm *Highest TI-RADS level nodule reported
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
[2021-10-10] MEDS: SPIRONOLACTONE 25 MG TAB PO SCH ×3 (11:13→21:23)
[2021-10-10 12:20] LABS: Glucose,Whole Blood 132 mg/dL (75-99)
[2021-10-10 17:19] LABS: Glucose,Whole Blood 148 mg/dL (75-99)
--- NOTE | 2021-10-10 17:55 | PN ---
PROGRESS NOTE White female. Dental Laboratory Manager saw her today. Checked for orthostatic hypotension. Her diuretics have been stopped. Head, neck ultrasound normal except for a thyroid nodule that will have to have a biopsy done, which could be affecting her breathing. She has large nodules, over 2.5 cm in the right thyroid and 1.5 cm left thyroid and a nodule in the isthmus about 1.9. Will get Radiology to see her and possibly get her cleared for discharge. Make sure she has no orthostatic hypotension after stopping her diuretics. She normally takes 4 L. She is 98 on 4 L. Blood pressure drops to 115 to 95 over diastolic 62 to 65. She will have to continue with midodrine and her cortisol for adrenal insufficiency and get a thyroid nodule test by possibly outpatient nodule biopsy by Radiology. Lungs clear. Cardiovascular S1, S2. Prognosis guarded. Hematology negative Homans. Please see further orders. Possible discharge soon. MMODL / IJN: [id number] /
[2021-10-10 20:23] LABS: Glucose,Whole Blood 167 mg/dL (75-99)
[2021-10-10] MEDS: RIVAROXABAN 20 MG TAB PO SCH (21:23)
[2021-10-11 02:43] LABS: Folate, Serum 15.9 ng/mL (4.40-31.00)
[2021-10-11] MEDS: MORPHINE SULFATE 4 MG/ML SYRINGE IV PRN ×3 (03:00→17:52)
[2021-10-11] MEDS: LEVOTHYROXINE 25 MCG TAB PO SCH (05:51)
[2021-10-11] MEDS: SODIUM CHLORIDE 0.9% 1,000 ML IV SCH ×2 (05:51→20:49)
[2021-10-11] MEDS: MIDODRINE 5 MG TAB PO SCH ×3 (07:17→17:13)
[2021-10-11 07:18] LABS: Glucose,Whole Blood 152 mg/dL (75-99)
[2021-10-11] MEDS: levETIRAcetam 500 MG TAB PO SCH ×3 (07:21→21:25)
[2021-10-11] MEDS: FAMOTIDINE 20 MG TAB PO SCH ×2 (07:21→21:26)
[2021-10-11] MEDS: ACYCLOVIR 200 MG CAP PO SCH ×2 (07:21→21:26)
[2021-10-11] MEDS: clonazePAM 0.5 MG TAB PO SCH ×3 (07:21→21:26)
[2021-10-11] MEDS: SPIRONOLACTONE 25 MG TAB PO SCH ×3 (07:22→21:26)
[2021-10-11] MEDS: oxyCODONE-APAP 7.5-325MG 1 EACH TAB PO SCH ×3 (07:22→21:26)
[2021-10-11] MEDS: ATORVASTATIN 40 MG TAB PO SCH (07:22)
[2021-10-11] MEDS: FLUoxetine HCL 20 MG CAP PO SCH (07:22)
[2021-10-11] MEDS: HYDROCORTISONE 20 MG TAB PO SCH ×2 (07:23→21:25)
[2021-10-11] MEDS: METOPROLOL SUCCINATE (ER) 100 MG TAB.ER.24H PO SCH (07:23)
[2021-10-11] MEDS: POTASSIUM CHLORIDE ER 20 MEQ TAB.ER PO SCH ×2 (07:23→21:26)
[2021-10-11] MEDS: ARIPiprazole 2 MG TAB PO SCH (07:23)
[2021-10-11] MEDS: FLECAINIDE 50 MG TAB PO SCH ×2 (07:23→21:25)
[2021-10-11] MEDS: GABAPENTIN 300 MG CAP PO SCH ×3 (07:23→21:25)
[2021-10-11 08:06] VITALS: RESP 16
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
[2021-10-11] MEDS: INSULIN ASPART (NovoLOG) 100 UNIT/ML VIAL SQ SCH ×4 (08:58→21:02)
[2021-10-11 09:01] LABS: African American GFR (CKD) 71 (>60 ml/min/1.73 sqM); Anion Gap 4 mmol/L; Blood Urea Nitrogen 32 mg/dL (7-17); Calcium 9.7 mg/dL (8.4-10.2); Carbon Dioxide 32 mmol/L (22-30); Chloride 100 mmol/L (98-107); Glucose 102 mg/dL (74-99); Non-African American GFR(CKD) 62 (>60 ml/min/1.73 sqM); Potassium 4.7 mmol/L (3.5-5.1); Sodium 136 mmol/L (137-145)
--- NOTE | 2021-10-11 09:35 | P.PN ---
Subjective HISTORY OF PRESENTING ILLNESS This is a pleasant 76-year-old female past medical history significant for paroxysmal-fibrillation on Xarelto, sick sinus syndrome status post pacemaker implantation in 2013, COPD, hypothyroidism, adrenal insufficiency, hypertension, dyslipidemia, bladder cancer status post surgery, type 2 diabetes. She follows in the office with Dr. Leong. We have been asked to see in consultation for syncope. Patient presents emergency department with multiple falls. She states that she's been having episodes of unsteadiness and falls at home for about a year. This admission, she states she was walking in her house at home and states she just falls into the wall or she will feel herself lowering herself to the floor. She sometimes does not recall what happens between walking and feeling herself falling or swaying towards the wall. She denies loss of consciousness, chest pain, lightheadedness, dizziness, or shortness of breath. Patient denies any dizziness or lightheadedness when standing. She does not have any warning signs/symptoms. She was recently at [facility] for similar symptoms in July 2021 was diagnosed with dehydration and near syncopal episode at home. Patient's medications were adjusted and was told to discontinue Synthroid, Lasix, Antivert and potassium at that time. She was told to follow up with Dr. Claudio with endocrinology. And started on hydrocortisone 20mg BID. 10/11/2021 Patient seen and examined at bedside, no acute distress. She denies any dizziness lightheadedness, chest pain, shortness of breath, syncope or near- syncope. Her Lasix, metolazone and losartan have been held. She is no longer having positive orthostatics. Pacemaker was interrogated with no acute findings. Device is functioning normally. Telemetry reviewed patient maintained sinus mechanism heart rates in the 60s80s, no significant arrhythmia noted. PHYSICAL EXAMINATION Blood pressure 104/70, heart rate 68, afebrile, saturations 98% on 3 L nasal cannula Orthostatic vital signs negative CONSTITUTIONAL: No apparent distress. HEENT: Neck supple. No JVD. CHEST EXAMINATION: Lungs are clear to auscultation. No chest wall tenderness is noted on palpation or with deep breathing. HEART EXAMINATION: Regular rate and rhythm. S1, S2 heard. No murmurs, gallops or rub. ABDOMEN: Soft, nontender. Positive bowel sounds. EXTREMITIES: 2+ peripheral pulses, no lower extremity edema and no calf tenderness. NEUROLOGIC EXAMINATION: Patient is awake, alert and oriented x3. ASSESSMENT Near syncope, likely related to orthostatic hypotension and worsened with antihypertensives and diuretics Orthostatic hypotension Hyperthyroidism could be causing her symptoms of palpitations Paroxysmal-fibrillation on Xarelto Sick sinus syndrome status post pacemaker implantation in 2013 COPD History of Hypothyroidism Adrenal insufficiency History of hypertension Dyslipidemia History of bladder cancer status post surgery Type 2 diabetes PLAN -Continue to hold losartan, lasix, and metolazone patient's symptoms have improved and she is no longer orthostatic. Pacemaker device was interrogated with no acute findings. -Continue statin, Xarelto, metoprolol -From a cardiology perspective, patient stable. Recommend follow-up with Dr. Leong in the outpatient setting and 12 weeks. -Please reach out with any further questions or concerns. Nurse practitioner note has been reviewed by physician. Signing provider agrees with the documented findings, assessment, and plan of care. Objective - Vital Signs Vital signs: Vital Signs Temp 98.0 F 10/11/21 07:20 Pulse 91 10/11/21 08:00 Resp 16 10/11/21 08:00 BP 104/70 10/11/21 07:20 Pulse Ox 98 10/11/21 07:20 Intake & Output 10/10/21 10/11/21 10/11/21 18:59 06:59 18:59 Intake Total 500 Balance 500 Intake: Oral 500 Other: Voiding Method Toilet Toilet # Voids 3 1 - Labs CBC & Chem 7: 10/09/21 Unknown 10/11/21 08:16 Labs: Abnormal Lab Results - Last 24 Hours (Table) 10/10/21 10/10/21 10/10/21 Range/Units 12:19 17:17 19:31 Sodium (137-145) mmol/L Carbon Dioxide (22-30) mmol/L BUN (7-17) mg/dL Glucose (74-99) mg/dL POC Glucose (mg/dL) 132 H 148 H (75-99) mg/dL Hemoglobin A1c 7.4 H (0.0-6.0) % 10/10/21 10/11/21 10/11/21 Range/Units 20:14 07:17 08:16 Sodium 136 L (137-145) mmol/L Carbon Dioxide 32 H (22-30) mmol/L BUN 32 H (7-17) mg/dL Glucose 102 H (74-99) mg/dL POC Glucose (mg/dL) 167 H 152 H (75-99) mg/dL Hemoglobin A1c (0.0-6.0) %
[2021-10-11 12:28] LABS: Glucose,Whole Blood 167 mg/dL (75-99)
[2021-10-11 17:05] LABS: Glucose,Whole Blood 114 mg/dL (75-99)
[2021-10-11 20:24] LABS: Glucose,Whole Blood 130 mg/dL (75-99)
[2021-10-11] MEDS: RIVAROXABAN 20 MG TAB PO SCH (21:25)
[2021-10-12] MEDS: MORPHINE SULFATE 4 MG/ML SYRINGE IV PRN (00:32)
[2021-10-12] MEDS: LEVOTHYROXINE 25 MCG TAB PO SCH (05:34)
[2021-10-12 07:35] LABS: Glucose,Whole Blood 116 mg/dL (75-99)
[2021-10-12] MEDS: INSULIN ASPART (NovoLOG) 100 UNIT/ML VIAL SQ SCH ×2 (07:51→12:30)
[2021-10-12] MEDS: FLECAINIDE 50 MG TAB PO SCH (08:43)
[2021-10-12] MEDS: MIDODRINE 5 MG TAB PO SCH ×2 (08:44→12:30)
[2021-10-12] MEDS: SPIRONOLACTONE 25 MG TAB PO SCH ×2 (08:44→15:53)
[2021-10-12] MEDS: GABAPENTIN 300 MG CAP PO SCH (08:44)
[2021-10-12] MEDS: FLUoxetine HCL 20 MG CAP PO SCH (08:45)
[2021-10-12] MEDS: ARIPiprazole 2 MG TAB PO SCH (08:45)
[2021-10-12] MEDS: ACYCLOVIR 200 MG CAP PO SCH (08:45)
[2021-10-12] MEDS: METOPROLOL SUCCINATE (ER) 100 MG TAB.ER.24H PO SCH (08:45)
[2021-10-12] MEDS: HYDROCORTISONE 20 MG TAB PO SCH (08:45)
[2021-10-12] MEDS: levETIRAcetam 500 MG TAB PO SCH ×2 (08:46→15:52)
[2021-10-12] MEDS: POTASSIUM CHLORIDE ER 20 MEQ TAB.ER PO SCH (08:46)
[2021-10-12] MEDS: oxyCODONE-APAP 7.5-325MG 1 EACH TAB PO SCH ×2 (08:46→15:52)
[2021-10-12] MEDS: FAMOTIDINE 20 MG TAB PO SCH (08:47)
[2021-10-12] MEDS: clonazePAM 0.5 MG TAB PO SCH ×2 (08:47→15:53)
[2021-10-12] MEDS: ATORVASTATIN 40 MG TAB PO SCH (08:47)
[2021-10-12] MEDS: SODIUM CHLORIDE 0.9% 1,000 ML IV SCH (08:50)
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
--- NOTE | 2021-10-12 11:04 | P.PN ---
Subjective Progress Note Date: 10/11/21 Patient was seen for a follow-up. Patient denies any new neurological symptoms. Continues to be very tremulous. Offers no complaints. Objective - Vital Signs Vital signs: Vital Signs Temp 97.6 F 10/12/21 07:00 Pulse 73 10/12/21 07:00 Resp 16 10/12/21 07:00 BP 116/71 10/12/21 07:00 Pulse Ox 95 10/12/21 08:13 Intake & Output 10/11/21 10/12/21 10/12/21 18:59 06:59 18:59 Intake Total 640 Balance 640 Intake: Oral 640 Other: Voiding Method Toilet # Voids 4 1 - Exam Patient is laying comfortably in the bed. Patient continues to be tremulous. Detail testing deferred. Mentation is normal. - Labs CBC & Chem 7: 10/09/21 Unknown 10/11/21 08:16 Labs: Abnormal Lab Results - Last 24 Hours (Table) 10/11/21 10/11/21 10/11/21 Range/Units 12:27 17:04 20:22 POC Glucose (mg/dL) 167 H 114 H 130 H (75-99) mg/dL 10/12/21 Range/Units 07:34 POC Glucose (mg/dL) 116 H (75-99) mg/dL Assessment and Plan Assessment: * Frequent falls, probably due to losing balance. Exact cause uncertain, probably multifactorial as below. Patient also has orthostatic hypotension, likely leading to near syncope. Polypharmacy also may be playing the role. * Postural tremors, likely due to hyperthyroidism. No evidence of Parkinson's. * Significant arthritis knee joint * Cervical and lumbar spondylosis, degenerative grade 1 anterolisthesis in the cervical and upper thoracic spine, as well as degenerative grade 1 ant erolisthesis L4 5. * Hyperthyroidism * Adrenal insufficiency. * Positive orthostatics noted, which may be contributing. * Type-II Diabetes * Paroxysmal Atrial fibrillation on anticoagulation with Xarelto * History of bladder cancer, status post surgery * Pacemaker Plan: * Patient has orthostatic hypotension. Cardiology on board. Pacemaker interrogation showed no arrhythmia, as per their report. Patient also has adrenal insufficiency. IM to address these medical issues. * Patient has spondylolisthesis at the level of cervical and lumbar spine. Patient cannot undergo MRI of the cervical and lumbar spine because of presence of pacemaker. Await orthopedic consultation. * Patient has fine tremors of outstretched hands. When I had patient walk, her legs started shaking, knees buckled up and then she collapsed to the bed. I suspect this may be related to her hyperthyroidism. Patient undergoing further testing of her hyperthyroidism. Recommend endocrinology consultation. * B12 558, folate 15.9, A1c 7.4. Optimize control of diabetes to target A1c <7.0. Vitamin B6 and MMA pending. * For her gait imbalance, we will decrease gabapentin to 400 mg 3 times a day. * Recommend PT OT evaluate gait. Patient to be transferred to subacute rehab in a.m.
[2021-10-12 12:13] LABS: Glucose,Whole Blood 96 mg/dL (75-99)
[2021-10-12 14:07] VITALS: BP 110/72; PULSE 78; TEMP 97.9
--- NOTE | 2021-10-12 14:14 | PN ---
PROGRESS NOTE DATE OF SERVICE: 10/11/2021 76-year-old white female who is admitted with severe dizziness, orthostatic changes. She has been taken off Lasix, Zaroxolyn. She is doing better from a medical standpoint. We will get neurosurgeon to see her for cervical lumbar disc disease, although by adding Midodrine and cutting out her diuretics, she appears to be less orthostatic and less dizzy. PHYSICAL EXAMINATION: Temperature is 97.6-98.2, pulse is 108, respiratory 16 to 18, blood pressure is 110/76 to 116/71, O2 saturation on 4 L, 95 to 98. She is doing better with her breathing. We will possibly send her over to rehab center tomorrow. LYNDA / EARLEN: [id number] /
--- NOTE | 2021-10-12 15:20 | DS ---
DISCHARGE SUMMARY DATE OF DISCHARGE: 10/12/2021 CONDITION: Stable. PROGNOSIS: Guarded. DISCHARGE MEDICATIONS: 1. Neurontin 400 mg t.i.d. 2. Accu-Chek protocol before meals and at bedtime. 3. Xarelto 20 mg daily. 4. Tambocor 100 mg b.i.d. 5. Zovirax 400 mg b.i.d. 6. Abilify 2 mg daily. 7. Percocet 7.5/325 t.i.d. 8. Klonopin 1 mg t.i.d. 9. Prozac 60 mg daily. 10.Trulicity 1.5 mg weekly. 11.Synthroid 25 mcg daily. 12.Ventolin HFA 2 puffs q.6 hours p.r.n. 13.Toprol-XL 100 mg daily. 14.Crestor 20 mg daily. 15.Keppra 500 t.i.d. 16.Spironolactone 50 t.i.d. 17.Pepcid 20 b.i.d. 18.Cortef 20 b.i.d. 19.Potassium chloride 20 mEq b.i.d. 20.Lac-Hydrin topically daily. 21.Midodrine 10 mg t.i.d. Ambulate as tolerated. This 76-year-old white female came to the hospital severe orthostatic hypotension, dizziness. Dizziness workup was done by Neurology and myself. She was found to be severely orthostatic. She was taken off multiple diuretics, metolazone, Lasix, Cozaar. The patient was stabilized from a medical standpoint and Dr. Mcclendon saw her for cervical lumbar disk disease, for which she may get operated on as outpatient. She is weak due to orthostatic changes and chronic dizziness. She will need some physical therapy and a nap before she goes home. Her last sodium was 136, potassium 4.7, BUN 32, creatinine 0.92, sugars in the mid 100s. Prognosis guarded. Follow up as an outpatient with Dr. Mackay. LYNDA / ERNESTO: [id number] /
[2021-10-12] MEDS ORDERED: GABAPENTIN 400 MG CAP PO SCH (22:00)
--- NOTE | 2021-10-13 00:56 | P.PN ---
Subjective Progress Note Date: 10/12/21 Patient was seen for a follow-up. Patient denies any new neurological symptoms. Less tremulous today. Offers no complaints. Patient states she had previously cut back on the doses of Keppra, Neurontin and Abilify and did not help with her gait. When Abilify was decreased it appears she developed TD. Objective - Vital Signs Vital signs: Vital Signs Temp 97.9 F 10/12/21 14:06 Pulse 78 10/12/21 14:06 Resp 16 10/12/21 14:06 BP 110/72 10/12/21 14:06 Pulse Ox 95 10/12/21 14:06 Intake & Output 10/12/21 10/12/21 10/13/21 06:59 18:59 06:59 Other: # Voids 1 6 # Bowel Movements 1 - Exam Patient is laying comfortably in the bed. Patient is less tremulous. Mentation is normal. Muscle strength normal. No rigidity noticed. No cogwheeling. Patient able to get up from the bed without difficulty. She walked with her walker and appeared quite stable and required less assistance. Able to walk for me in the hallway. - Labs CBC & Chem 7: 10/09/21 Unknown 10/11/21 08:16 Labs: Abnormal Lab Results - Last 24 Hours (Table) 10/12/21 Range/Units 07:34 POC Glucose (mg/dL) 116 H (75-99) mg/dL Assessment and Plan Assessment: * Frequent falls, probably due to losing balance. Exact cause uncertain, probably multifactorial as below. Patient also has orthostatic hypotension, likely leading to near syncope. Polypharmacy also may be playing the role. * Postural tremors, likely due to hyperthyroidism. No evidence of Parkinson's. * Significant arthritis knee joint * Cervical and lumbar spondylosis, degenerative grade 1 anterolisthesis in the cervical and upper thoracic spine, as well as degenerative grade 1 anterolisthesis L4 5. * Hyperthyroidism * Adrenal insufficiency. * Type-II Diabetes * Paroxysmal Atrial fibrillation on anticoagulation with Xarelto * History of bladder cancer, status post surgery * Pacemaker Plan: * Patient has orthostatic hypotension. Cardiology on board. Pacemaker interro gation showed no arrhythmia, as per their report. Patient also has adrenal insufficiency. IM to address these medical issues. * Patient has spondylolisthesis at the level of cervical and lumbar spine. Patient cannot undergo MRI of the cervical and lumbar spine because of presence of pacemaker. Orthopedic consultation input appreciated. No surgery recommended. * Patient has fine tremors of outstretched hands, likely due to hyperthyroidism. Patient undergoing further testing of her hyperthyroidism as out patient. Recommend endocrinology consultation. * B12 558, folate 15.9, A1c 7.4. Optimize control of diabetes to target A1c <7.0. Vitamin B6 and MMA pending. * For her gait imbalance, we will decrease gabapentin to 400 mg 3 times a day. * Recommend PT OT evaluate gait. Patient to be transferred to subacute rehab today.
== END 2021-10-12 16:38 ==
LOC: EC 11:40 → 6NMEDSUR 14:45
PROVIDERS: ADMIT Family Medicine; ATTEND Family Medicine
DX: R55 Syncope and collapse (principal); W19.XXXA Unspecified fall, initial encounter; S00.93XA Contusion of unspecified part of head, initial encounter; I95.1 Orthostatic hypotension; R29.6 Repeated falls; K21.9 Gastro-esophageal reflux disease without esophagitis; Z87.01 Personal history of pneumonia (recurrent); Z20.822 Contact with and (suspected) exposure to COVID-19; Z87.2 Personal history of diseases of the skin and subcutaneous tissue; Z90.49 Acquired absence of other specified parts of digestive tract; Z87.448 Personal history of other diseases of urinary system; G47.33 Obstructive sleep apnea (adult) (pediatric); F41.9 Anxiety disorder, unspecified; F32.A Depression, unspecified; E03.9 Hypothyroidism, unspecified; E05.20 Thyrotoxicosis with toxic multinodular goiter without thyrotoxic crisis or storm; E11.9 Type 2 diabetes mellitus without complications; E78.5 Hyperlipidemia, unspecified; G40.A09 Absence epileptic syndrome, not intractable, without status epilepticus; E27.40 Unspecified adrenocortical insufficiency; I11.0 Hypertensive heart disease with heart failure; I44.0 Atrioventricular block, first degree; I48.0 Paroxysmal atrial fibrillation; I49.5 Sick sinus syndrome; I50.9 Heart failure, unspecified; J44.9 Chronic obstructive pulmonary disease, unspecified; M17.10 Unilateral primary osteoarthritis, unspecified knee; M41.86 Other forms of scoliosis, lumbar region; M43.19 Spondylolisthesis, multiple sites in spine; M47.812 Spondylosis without myelopathy or radiculopathy, cervical region; M48.02 Spinal stenosis, cervical region; M47.816 Spondylosis without myelopathy or radiculopathy, lumbar region; M50.30 Other cervical disc degeneration, unspecified cervical region; M51.36 Other intervertebral disc degeneration, lumbar region; M79.7 Fibromyalgia; Z91.013 Allergy to seafood; Z88.8 Allergy status to other drugs, medicaments and biological substances; Z79.01 Long term (current) use of anticoagulants; Z79.4 Long term (current) use of insulin; Z79.890 Hormone replacement therapy; Z79.899 Other long term (current) drug therapy; Z86.711 Personal history of pulmonary embolism; Z85.51 Personal history of malignant neoplasm of bladder; Z87.891 Personal history of nicotine dependence; Z90.81 Acquired absence of spleen; Z91.81 History of falling; Z95.0 Presence of cardiac pacemaker; Z96.611 Presence of right artificial shoulder joint; Z82.62 Family history of osteoporosis; Z82.49 Family history of ischemic heart disease and other diseases of the circulatory system
CPT/HCPCS: 99285; 96376 ×3; 96374; 94760; 97530 ×3; 97163; 97166; 84207; 83921; 85379; 84439; 84481; 80053; 80048; 84443; 82533; 82607; 82746; 84484; 85025; 83036; 87635; 72070; 72100; 73552; 76536; 72125; 70450; G0378 ×4; J2270 ×4

== ENCOUNTER 2021-10-25 20:29 | Observation (INO) | payer MEDICARE, OTHER ==
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
--- NOTE | 2021-10-25 21:46 | CT ---
EXAMINATION TYPE: CT brain savannaine wo con DATE OF EXAM: 10/25/2021 COMPARISON: 10/09/2021 HISTORY: dizziness, fall CT DLP: 1482 mGycm Automated exposure control for dose reduction was used. TECHNIQUE: CT scan of the head and cervical spine are performed without contrast. FINDINGS: There is no acute intracranial hemorrhage, mass effect, or midline shift identified. The ventricles and sulci are within normal limits in size. The globes are intact and the visualized sin uses are clear. Cervical spine is visualized in its entirety from C1 through upper thoracic levels and demonstrates s atisfactory alignment without evidence of acute fracture or dislocation. There is moderate C5-C7 spon dylosis. Prevertebral soft tissue appears within normal limits. The C1-C2 articulation is unremarkab le. IMPRESSION: 1. There is no acute fracture or dislocation evident in the cervical spine. 2. No acute intracranial hemorrhage, mass effect, or midline shift is seen.
[2021-10-25 21:49] LABS: Basophils % (A) 0 %; Eosinophils # (A) 0.2 k/uL (0-0.7); Eosinophils % (A) 2 %; HCT 39.2 % (34.0-46.0); HGB 12.3 gm/dL (11.4-16.0); Lymphocytes # (A) 4.4 k/uL (1.0-4.8); Lymphocytes % (A) 36 %; MCH 29.3 pg (25.0-35.0); MCHC 31.5 g/dL (31.0-37.0); MCV 93.1 fL (80.0-100.0); Mean Platelet Volume 7.9; Monocytes # (A) 0.9 k/uL (0-1.0); Monocytes % (A) 8 %; Neutrophils # (A) 6.3 k/uL (1.3-7.7); Neutrophils % (A) 52 %; Platelet Count 316 k/uL (150-450); RBC 4.21 m/uL (3.80-5.40); RDW 13.8 % (11.5-15.5); WBC 12.2 k/uL (3.8-10.6)
[2021-10-25] MEDS ORDERED: HYDROcodone/APAP 5-325MG 1 EACH TAB PO STA (22:44)
[2021-10-25] MEDS ORDERED: oxyCODONE-APAP 5-325MG 1 EACH TAB PO STA (23:24)
[2021-10-25] MEDS ORDERED: SODIUM CHLORIDE 0.9% 500 ML 500 ML IV ONE (23:48)
[2021-10-26] MEDS ORDERED: MORPHINE SULFATE 4 MG/ML SYRINGE IV STA (03:42)
[2021-10-26] MEDS ORDERED: ACETAMINOPHEN TAB 325 MG TAB PO PRN (06:06)
[2021-10-26] MEDS ORDERED: NALOXONE 0.4 MG/ML 1 ML VIAL IV PRN (06:06)
[2021-10-26 08:33] LABS: Glucose,Whole Blood 113 mg/dL (75-99)
[2021-10-26] MEDS ORDERED: FAMOTIDINE 20 MG TAB PO SCH ×2 (09:00→21:00)
[2021-10-26] MEDS: SODIUM CHLORIDE 0.9% 1,000 ML IV SCH (09:01)
[2021-10-26] MEDS ORDERED: ALBUTEROL NEBULIZED 2.5 MG/3 ML INHALATION PRN (11:34)
[2021-10-26 12:02] LABS: Glucose,Whole Blood 106 mg/dL (75-99)
[2021-10-26] MEDS: INSULIN ASPART (NovoLOG) 100 UNIT/ML VIAL SQ SCH ×3 (12:15→20:46)
[2021-10-26] MEDS: ARIPiprazole 2 MG TAB PO SCH (12:57)
[2021-10-26] MEDS: FLUoxetine HCL 20 MG CAP PO SCH (12:58)
[2021-10-26] MEDS: MIDODRINE 5 MG TAB PO SCH ×2 (12:58→18:02)
[2021-10-26] MEDS: METOPROLOL SUCCINATE (ER) 100 MG TAB.ER.24H PO SCH (12:59)
[2021-10-26] MEDS: oxyCODONE-APAP 7.5-325MG 1 EACH TAB PO SCH ×3 (12:59→21:22)
[2021-10-26] MEDS ORDERED: MECLIZINE 12.5 MG TAB PO PRN (14:46)
--- NOTE | 2021-10-26 15:51 | HP ---
HISTORY AND PHYSICAL HISTORY OF PRESENT ILLNESS: 75-year-old white female came to emergency room after having a fall. She was having some posterior neck and head pain. She says she fell on her belly. She was unable to keep food down last night, but now she is keeping food down this afternoon. She says she threw her Antivert pills away a week ago. She says when she turns her head to the left or the right her head spins and the room spins which is contributed to her falling. The ER said she was not orthostatic on admission. She has had multiple workups in the past for dizziness. MEDICATIONS: Were reviewed. ALLERGIES: Reviewed. See list. REVIEW OF SYMPTOMS: Review of systems otherwise negative. See list. PAST MEDICAL HISTORY: See list. FAMILY HISTORY: See list. PHYSICAL EXAMINATION: Vital signs reviewed. She has given appropriate answers on psych eval. NEUROLOGIC: Cranial nerves intact. CARDIOVASCULAR S1, S2. LUNGS: Clear. She wears 4 L oxygen at home. HEENT: Pupils equal, round, reactive. HEENT within normal limits. BACK nontender. Cervical lumbar spine, CT scan reviewed from the ER. Labs reviewed from the ER. Blood pressure 110/48, temp 91, pulse 80s, respiratory 16 to 18. Sodium 134, potassium 5.0, BUN 18, creatinine 1.18. ASSESSMENT: 1. Orthostatic hypotension. 2. Falls, suspect vertigo, noncompliant with the Antivert, worse when she turns her head. 3. She has history atrial fibrillation, which is stable. Labs appear fairly stable. Rehydrated for prerenal renal azotemia and get Neurology consult. Start Antivert again and she how she does. PT/OT. Orthostatic checks. MMODL / IJN: [id number] /
[2021-10-26 16:16] LABS: Appearance,Urine Clear (Clear); Bilirubin,Urine Negative (Negative); Blood,Urine Negative (Negative); Color,Urine Colorless; Glucose,Urine (UA) Negative (Negative); Ketones,Urine Negative (Negative); Leukocyte Esterase,Urine Negative (Negative); Nitrite,Urine Negative (Negative); PH, Urine 6.5 (5.0-8.0); Protein,Urine Negative (Negative); Specific Gravity,Urine 1.005 (1.001-1.035); Urobilinogen,Urine <2.0 mg/dL (<2.0)
[2021-10-26] MEDS: GABAPENTIN 400 MG CAP PO SCH ×2 (16:42→21:22)
[2021-10-26] MEDS: SPIRONOLACTONE 25 MG TAB PO SCH ×2 (16:42→21:23)
[2021-10-26] MEDS: clonazePAM 0.5 MG TAB PO SCH ×2 (16:42→20:46)
[2021-10-26] MEDS: levETIRAcetam 500 MG TAB PO SCH ×2 (16:42→20:47)
[2021-10-26 17:35] LABS: Glucose,Whole Blood 96 mg/dL (75-99)
[2021-10-26 20:01] LABS: Glucose,Whole Blood 134 mg/dL (75-99)
[2021-10-26] MEDS: HYDROCORTISONE 20 MG TAB PO SCH (20:46)
[2021-10-26] MEDS: ACYCLOVIR 200 MG CAP PO SCH (20:46)
[2021-10-26] MEDS: FLECAINIDE 50 MG TAB PO SCH (20:47)
[2021-10-26] MEDS: POTASSIUM CHLORIDE ER 20 MEQ TAB.ER PO SCH (20:47)
[2021-10-26] MEDS ORDERED: RIVAROXABAN 20 MG TAB PO SCH (21:00)
[2021-10-26] MEDS: AMMONIUM LACTATE 12% LOTION 225 GM BTL TOPICAL SCH (21:24)
[2021-10-27] MEDS: SODIUM CHLORIDE 0.9% 1,000 ML IV SCH (05:37)
[2021-10-27] MEDS ORDERED: LEVOTHYROXINE 25 MCG TAB PO SCH (06:30)
[2021-10-27 07:28] LABS: Glucose,Whole Blood 87 mg/dL (75-99)
[2021-10-27] MEDS ORDERED: FAMOTIDINE 20 MG TAB PO SCH (09:00)
[2021-10-27] MEDS ORDERED: ATORVASTATIN 40 MG TAB PO SCH (09:00)
[2021-10-27] MEDS: INSULIN ASPART (NovoLOG) 100 UNIT/ML VIAL SQ SCH ×2 (09:25→13:10)
[2021-10-27] MEDS: HYDROCORTISONE 20 MG TAB PO SCH (10:21)
[2021-10-27] MEDS: oxyCODONE-APAP 7.5-325MG 1 EACH TAB PO SCH (10:21)
[2021-10-27] MEDS: clonazePAM 0.5 MG TAB PO SCH (10:22)
[2021-10-27] MEDS: FLUoxetine HCL 20 MG CAP PO SCH (10:22)
[2021-10-27] MEDS: ACYCLOVIR 200 MG CAP PO SCH (10:22)
[2021-10-27] MEDS: ARIPiprazole 2 MG TAB PO SCH (10:22)
[2021-10-27] MEDS: FLECAINIDE 50 MG TAB PO SCH (10:23)
[2021-10-27] MEDS: SPIRONOLACTONE 25 MG TAB PO SCH (10:23)
[2021-10-27] MEDS: GABAPENTIN 400 MG CAP PO SCH (10:23)
[2021-10-27] MEDS: levETIRAcetam 500 MG TAB PO SCH (10:23)
[2021-10-27] MEDS: MIDODRINE 5 MG TAB PO SCH ×2 (10:23→13:10)
[2021-10-27] MEDS: METOPROLOL SUCCINATE (ER) 100 MG TAB.ER.24H PO SCH (10:23)
[2021-10-27] MEDS: POTASSIUM CHLORIDE ER 20 MEQ TAB.ER PO SCH (10:27)
[2021-10-27 10:37] LABS: Basophils # (A) 0.04 X 10*3/uL (0.00-0.10); Basophils % (A) 0.4 %; Eosinophils # (A) 0.18 X 10*3/uL (0.04-0.35); HCT 37.8 % (37.2-46.3); HGB 11.5 g/dL (12.0-15.0); Immature Grans, Automated 0.2 %; Lymphocytes # (A) 3.32 X 10*3/uL (0.90-5.00); Lymphocytes % (A) 36.9 %; MCHC 30.4 g/dL (32.0-37.0); MCV 92.2 fL (80.0-97.0); Mean Platelet Volume 10.5 fL (9.5-12.2); Monocytes # (A) 1.04 X 10*3/uL (0.20-1.00); Monocytes % (A) 11.6 %; NRBC Per 100 WBC 0 /100 WBCS (0.0-0.0); Neutrophils % (A) 48.9 %; Platelet Count 330 X 10*3/uL (140-440); RDW 14.6 % (11.5-14.5)
[2021-10-27 10:56] LABS: African American GFR (CKD) 98.9 (60.0-200.0); Albumin 3.7 g/dL (3.8-4.9); Albumin/Globulin Ratio 1.68 (1.60-3.17); Anion Gap 11.2 mmol/L (10.00-18.00); Blood Urea Nitrogen 13.3 mg/dL (9.0-27.0); Calcium 9.8 mg/dL (8.7-10.3); Carbon Dioxide 28.8 mmol/L (20.0-27.5); Globulin 2.2 g/dL (1.6-3.3); Non-African American GFR(CKD) 85.4 (60.0-200.0); Potassium 4.8 mmol/L (3.5-5.5); Total Bilirubin 0.4 mg/dL (0.30-1.20); Total Protein 5.9 g/dL (6.2-8.2)
[2021-10-27 11:35] LABS: Glucose,Whole Blood 164 mg/dL (75-99)
[2021-10-27] MEDS: AMMONIUM LACTATE 12% LOTION 225 GM BTL TOPICAL SCH (13:02)
[2021-10-27 14:04] VITALS: BP 104/62; PULSE 73; RESP 17; TEMP 98.1
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
== END 2021-10-27 15:45 ==
LOC: EC 20:29 → 6NMEDSUR 10-26 06:06
PROVIDERS: ADMIT Family Medicine; ATTEND Family Medicine
DX: I95.1 Orthostatic hypotension (principal); S09.90XA Unspecified injury of head, initial encounter; R25.1 Tremor, unspecified; M54.2 Cervicalgia; J44.9 Chronic obstructive pulmonary disease, unspecified; I50.9 Heart failure, unspecified; M79.7 Fibromyalgia; K21.9 Gastro-esophageal reflux disease without esophagitis; E78.5 Hyperlipidemia, unspecified; M19.90 Unspecified osteoarthritis, unspecified site; G47.33 Obstructive sleep apnea (adult) (pediatric); G40.909 Epilepsy, unspecified, not intractable, without status epilepticus; F41.9 Anxiety disorder, unspecified; F32.A Depression, unspecified; I48.0 Paroxysmal atrial fibrillation; I47.1 Supraventricular tachycardia; G89.4 Chronic pain syndrome; G43.909 Migraine, unspecified, not intractable, without status migrainosus; D64.9 Anemia, unspecified; L40.9 Psoriasis, unspecified; M81.0 Age-related osteoporosis without current pathological fracture; T45.0X6A Underdosing of antiallergic and antiemetic drugs, initial encounter; R79.89 Other specified abnormal findings of blood chemistry; E11.41 Type 2 diabetes mellitus with diabetic mononeuropathy; M17.0 Bilateral primary osteoarthritis of knee; M47.816 Spondylosis without myelopathy or radiculopathy, lumbar region; M43.16 Spondylolisthesis, lumbar region; G57.93 Unspecified mononeuropathy of bilateral lower limbs; E05.90 Thyrotoxicosis, unspecified without thyrotoxic crisis or storm; I48.92 Unspecified atrial flutter; I49.5 Sick sinus syndrome; G56.03 Carpal tunnel syndrome, bilateral upper limbs; R26.9 Unspecified abnormalities of gait and mobility; Z79.01 Long term (current) use of anticoagulants; Z79.899 Other long term (current) drug therapy; Z79.890 Hormone replacement therapy; Z79.4 Long term (current) use of insulin; Z79.891 Long term (current) use of opiate analgesic; Z88.5 Allergy status to narcotic agent; Z91.013 Allergy to seafood; Z88.8 Allergy status to other drugs, medicaments and biological substances; Z91.048 Other nonmedicinal substance allergy status; Z87.01 Personal history of pneumonia (recurrent); Z86.711 Personal history of pulmonary embolism; Z87.891 Personal history of nicotine dependence; Z85.51 Personal history of malignant neoplasm of bladder; Z87.09 Personal history of other diseases of the respiratory system; Z87.440 Personal history of urinary (tract) infections; Z96.611 Presence of right artificial shoulder joint; Z99.81 Dependence on supplemental oxygen; Z90.81 Acquired absence of spleen; R29.6 Repeated falls; Y93.01 Activity, walking, marching and hiking; Z95.0 Presence of cardiac pacemaker; Z82.49 Family history of ischemic heart disease and other diseases of the circulatory system; Z82.62 Family history of osteoporosis; Z83.6 Family history of other diseases of the respiratory system; W01.0XXA Fall on same level from slipping, tripping and stumbling without subsequent striking against object, initial encounter
CPT/HCPCS: 96361 ×2; 96374; 99285; 36415; 94640; 93005; 97162; 97166; 84439; 84481; 80053; 80048; 84443; 82533; 84484 ×2; 85025 ×2; 81003; 72125; 70450; G0378 ×2; J2270

== ENCOUNTER 2021-12-01 09:19 | Day surgery (SDC) | payer MEDICARE, OTHER ==
[2021-12-01] MEDS ORDERED: ALPRAZolam 0.25 MG TAB PO STA (10:02)
--- NOTE | 2021-12-01 10:53 | US ---
ULTRASOUND GUIDED FNA THYROID BIOPSY: CLINICAL HISTORY: Left thyroid nodule FINDINGS: The procedure was explained to the patient. The risks, complications, benefits and alternatives were discussed and any questions were answered. Informed consent was obtained. Patient was placed supin e on the ultrasound table and prepped and draped in the usual sterile fashion. Utilizing a 25 gauge needle, five passes were made into the requested left thyroid nodule. Patient was stable throughout the procedure. Pathology is pending. All elements of maximal barrier technique were utilized. IMPRESSION: 1. Successful ultrasound guided FNA thyroid biopsy.
[2021-12-01 16:19] VITALS: TEMP 98.1
[2021-12-01 16:21] VITALS: RESP 18
[2021-12-01 16:22] VITALS: BP 129/75; PULSE 94
== END 2021-12-01 11:15 | disposition home or self-care (01) ==
LOC: RADPROMAIN 09:19
PROVIDERS: ATTEND Family Medicine
DX: E04.1 Nontoxic single thyroid nodule (principal)
CPT/HCPCS: 10005; 88173; 88305

== ENCOUNTER 2021-12-07 10:49 | Inpatient (IN) | payer MEDICARE, OTHER ==
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
[2021-12-07] MEDS ORDERED: ACETAMINOPHEN TAB 500 MG TAB PO STA (12:10)
--- NOTE | 2021-12-07 12:29 | XR ---
EXAMINATION TYPE: XR chest 2V DATE OF EXAM: 12/07/2021 COMPARISON: 07/18/2021 HISTORY: Shortness of breath TECHNIQUE: Frontal and lateral views of the chest are obtained. FINDINGS: Scattered senescent parenchymal changes noted. Hyperinflation compatible with COPD. No evidence for infiltrate. No evidence for atelectasis. Heart size is stable. Mediastinal structures are stable and grossly unremarkable. No evidence for hilar prominence. Degenerative changes dorsal spine. IMPRESSION: 1. No evidence for acute pulmonary disease.
[2021-12-07 12:33] LABS: Basophils % (A) 0 %; Eosinophils # (A) 0.1 k/uL (0-0.7); Eosinophils % (A) 1 %; HGB 14.2 gm/dL (11.4-16.0); Lymphocytes # (A) 2.9 k/uL (1.0-4.8); Lymphocytes % (A) 33 %; MCH 29.4 pg (25.0-35.0); MCHC 32.3 g/dL (31.0-37.0); MCV 91.1 fL (80.0-100.0); Mean Platelet Volume 8.4; Monocytes # (A) 0.9 k/uL (0-1.0); Monocytes % (A) 10 %; Neutrophils # (A) 4.6 k/uL (1.3-7.7); Neutrophils % (A) 52 %; Platelet Count 363 k/uL (150-450); RBC 4.83 m/uL (3.80-5.40); WBC 8.8 k/uL (3.8-10.6)
[2021-12-07 12:35] LABS: INR 1.2 (<1.2); Partial Thromboplastin Time 26.4 sec (22.0-30.0); Prothrombin Time 12.6 sec (9.0-12.0)
[2021-12-07 12:38] LABS: Albumin 3.7 g/dL (3.5-5.0); Calcium 9.8 mg/dL (8.4-10.2); Magnesium 1.5 mg/dL (1.6-2.3); Phosphorus 4.9 mg/dL (2.5-4.5); Potassium 4.8 mmol/L (3.5-5.1); Total Bilirubin 0.7 mg/dL (0.2-1.3); Total Protein 6.5 g/dL (6.3-8.2)
[2021-12-07 13:23] LABS: Glucose,Whole Blood 119 mg/dL (75-99)
[2021-12-07] MEDS ORDERED: NALOXONE 0.4 MG/ML 1 ML VIAL IV PRN (15:54)
[2021-12-07] MEDS: ONDANSETRON 4 MG/2 ML VIAL IVP PRN (16:48)
[2021-12-07] MEDS: methIMAzole 5 MG TAB PO SCH (16:49)
[2021-12-07] MEDS: MORPHINE SULFATE 2 MG/ML SYRINGE IV PRN (16:52)
[2021-12-07 16:56] LABS: T4, Free (Free Thyroxine) 2.55 ng/dL (0.78-2.19)
[2021-12-07] MEDS: MAGNESIUM SULFATE-D5W PMX 1 GM in DEXTROSE/WATER 1 100ML.BAG IVPB SCH ×2 (18:24→19:38)
[2021-12-07 21:23] LABS: Glucose,Whole Blood 100 mg/dL (75-99)
[2021-12-07] MEDS: MIDODRINE 5 MG TAB PO SCH (22:04)
[2021-12-07] MEDS: GABAPENTIN 300 MG CAP PO SCH (22:04)
[2021-12-07] MEDS: oxyCODONE-APAP 7.5-325MG 1 EACH TAB PO SCH (22:04)
[2021-12-07] MEDS: SPIRONOLACTONE 25 MG TAB PO SCH (22:05)
[2021-12-07] MEDS: POTASSIUM CHLORIDE ER 20 MEQ TAB.ER PO SCH (22:05)
[2021-12-07] MEDS: HYDROCORTISONE 20 MG TAB PO SCH (22:06)
[2021-12-07] MEDS: FUROSEMIDE 40 MG TAB PO SCH (22:06)
[2021-12-07] MEDS: RIVAROXABAN 20 MG TAB PO SCH (22:07)
[2021-12-07] MEDS: ACYCLOVIR 200 MG CAP PO SCH (22:07)
[2021-12-07] MEDS: levETIRAcetam 500 MG TAB PO SCH (22:07)
[2021-12-07] MEDS: clonazePAM 1 MG TAB PO SCH (22:10)
[2021-12-07] MEDS: PANTOPRAZOLE 40 MG TABLET PO SCH (22:19)
[2021-12-08 04:56] LABS: Glucose,Whole Blood 115 mg/dL (75-99)
[2021-12-08 07:05] LABS: Glucose,Whole Blood 140 mg/dL (75-99)
[2021-12-08] MEDS: oxyCODONE-APAP 7.5-325MG 1 EACH TAB PO SCH ×3 (07:09→21:13)
[2021-12-08] MEDS: PANTOPRAZOLE 40 MG TABLET PO SCH ×2 (07:10→15:28)
[2021-12-08] MEDS: FUROSEMIDE 40 MG TAB PO SCH ×2 (07:10→21:11)
[2021-12-08] MEDS: ATORVASTATIN 40 MG TAB PO SCH (07:10)
[2021-12-08] MEDS: SPIRONOLACTONE 25 MG TAB PO SCH ×3 (07:10→21:13)
[2021-12-08] MEDS: FLUoxetine HCL 20 MG CAP PO SCH (07:11)
[2021-12-08] MEDS: clonazePAM 1 MG TAB PO SCH ×3 (07:11→21:12)
[2021-12-08] MEDS: POTASSIUM CHLORIDE ER 20 MEQ TAB.ER PO SCH ×2 (07:11→21:12)
[2021-12-08] MEDS: GABAPENTIN 300 MG CAP PO SCH ×3 (07:11→21:12)
[2021-12-08] MEDS: ACYCLOVIR 200 MG CAP PO SCH ×2 (07:12→21:11)
[2021-12-08] MEDS: MIDODRINE 5 MG TAB PO SCH ×3 (07:12→21:12)
[2021-12-08] MEDS: METOPROLOL SUCCINATE (ER) 100 MG TAB.ER.24H PO SCH (07:12)
[2021-12-08] MEDS: levETIRAcetam 500 MG TAB PO SCH ×3 (07:13→21:12)
[2021-12-08] MEDS: HYDROCORTISONE 20 MG TAB PO SCH ×2 (07:13→21:11)
[2021-12-08] MEDS: methIMAzole 5 MG TAB PO SCH (07:48)
[2021-12-08] MEDS: ONDANSETRON 4 MG/2 ML VIAL IVP PRN ×2 (10:00→22:16)
[2021-12-08] MEDS: MORPHINE SULFATE 2 MG/ML SYRINGE IV PRN ×3 (10:02→21:13)
[2021-12-08] MEDS: methylPREDNISolone SOD SUCCI 40 MG/ML 1 ML VIAL IV SCH ×3 (10:16→23:35)
[2021-12-08 11:47] LABS: Glucose,Whole Blood 118 mg/dL (75-99)
[2021-12-08 17:04] LABS: Glucose,Whole Blood 190 mg/dL (75-99)
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
[2021-12-08 20:40] LABS: Glucose,Whole Blood 364 mg/dL (75-99)
--- NOTE | 2021-12-08 21:04 | CT ---
EXAMINATION TYPE: CT chest wo con DATE OF EXAM: 12/08/2021 COMPARISON: 09/08/2020 HISTORY: Pain, assess for sternal fracture CT DLP: 582.5 mGycm. Automated Exposure Control for Dose Reduction was Utilized. TECHNIQUE: CT scan of the thorax is performed without IV contrast. FINDINGS: AIRWAYS, LUNGS, PLEURAL SPACES: The lungs are grossly clear, there is no concerning parenchymal mass or nodule identified. There is no pleural effusion or pneumothorax seen. The tracheobronchial tree is patent. MEDIASTINUM: Lack of IV contrast is noted to limit evaluation for mediastinal and especially hilar ad enopathy. There are no definitive greater than 1 cm hilar or mediastinal lymph nodes. No cardiomega ly or pericardial effusion is seen. SKELETAL STRUCTURES: There is mild nonspecific indistinctness at the manubrial sternal junction, sim ilar to the prior CT, but there is no fracture or malalignment of the sternum. OTHER: No additional significant abnormality is seen. IMPRESSION: No definite acute process.
[2021-12-08] MEDS: RIVAROXABAN 20 MG TAB PO SCH (21:12)
--- NOTE | 2021-12-08 21:34 | HP ---
HISTORY AND PHYSICAL This is a 76-year-old white female fever, vomiting, nausea for 2 to 3 weeks, cough, congestion, continued to be short of breath pulmonary embolism, chronic dizziness. Influenza A and B were negative. D-dimer is negative. Magnesium 1.5. Troponin negative. She says she has hyperthyroidism untreated with elevated T3 and T4, low TSH. We are going to have to put her on medication to lower her thyroid, as this is probably the cause of her dizziness, cough and congestion, shortness of breath. Dr. Ross has been consulted. Home medicines: See list. Medications: See list. Past medical history: See list. Family history: Please see list. All reviewed in the hospital notes. Home medicines reviewed in the hospital. Allergies reviewed in the hospital. Pulse 70s, respiratory rate 16 to 18, blood pressure 108/68, temperature 98.3. HEENT: Normocephalic, atraumatic. Pupils equal, round, reactive. Lungs diminished. Neck is supple. GI has normal bowel sounds. Integument normal. Neurologic: Cranial nerves intact. Musculoskeletal: Gait generalized weakness. Psych: Alert and oriented x3. Sodium is 135, potassium 4.3. BUN is 30, creatinine 1.02. INR is 1.2. D-dimer is 0.28. BUN is 30, magnesium 1.5. ASSESSMENT: 1. Chest pain, mid sternal tenderness, multifactorial. 2. Nausea, vomiting. 3. Costochondritis versus fibromyalgia. 4. Chronic obstructive pulmonary disease exacerbation. 5. Chronic atrial fibrillation. 6. Hypertensive cardiovascular disease. 7. Diabetes mellitus. 8. Dyslipidemia. 9. Hyperthyroidism, being treated with medications. 10.Dyslipidemia. 11.Seizures. 12.History of pulmonary embolism. 13.Sleep apnea. IV steroids, bronchodilators, pain control. Home medications. Supplemental oxygen. CT of the chest is being ordered without contrast. Hyperthyroidism treatment. Get GI consult for vomiting. MMODL / IJN: [id number] /
[2021-12-08] MEDS ORDERED: INSULIN ASPART (NovoLOG) 100 UNIT/ML VIAL SQ ONE (22:15)
[2021-12-09] MEDS: MORPHINE SULFATE 2 MG/ML SYRINGE IV PRN ×6 (01:13→23:45)
[2021-12-09 07:01] LABS: Glucose,Whole Blood 211 mg/dL (75-99)
[2021-12-09] MEDS: methylPREDNISolone SOD SUCCI 40 MG/ML 1 ML VIAL IV SCH ×3 (07:43→23:43)
[2021-12-09] MEDS: SPIRONOLACTONE 25 MG TAB PO SCH ×3 (10:11→21:42)
[2021-12-09] MEDS: FLUoxetine HCL 20 MG CAP PO SCH (10:12)
[2021-12-09] MEDS: PANTOPRAZOLE 40 MG TABLET PO SCH ×2 (10:12→16:18)
[2021-12-09] MEDS: POTASSIUM CHLORIDE ER 20 MEQ TAB.ER PO SCH ×2 (10:12→21:42)
[2021-12-09] MEDS: FUROSEMIDE 40 MG TAB PO SCH ×2 (10:12→21:42)
[2021-12-09] MEDS: clonazePAM 1 MG TAB PO SCH ×3 (10:12→21:42)
[2021-12-09] MEDS: MIDODRINE 5 MG TAB PO SCH ×3 (10:12→21:42)
[2021-12-09] MEDS: ATORVASTATIN 40 MG TAB PO SCH (10:12)
[2021-12-09] MEDS: oxyCODONE-APAP 7.5-325MG 1 EACH TAB PO SCH ×3 (10:13→21:43)
[2021-12-09] MEDS: GABAPENTIN 300 MG CAP PO SCH ×3 (10:13→21:42)
[2021-12-09] MEDS: INSULIN ASPART (NovoLOG) 100 UNIT/ML VIAL SQ SCH ×4 (10:15→22:07)
[2021-12-09] MEDS: levETIRAcetam 500 MG TAB PO SCH ×3 (10:16→21:42)
[2021-12-09] MEDS: ACYCLOVIR 200 MG CAP PO SCH ×2 (10:16→21:42)
[2021-12-09] MEDS: methIMAzole 5 MG TAB PO SCH (10:17)
[2021-12-09] MEDS: HYDROCORTISONE 20 MG TAB PO SCH ×2 (10:17→21:41)
[2021-12-09] MEDS: METOPROLOL SUCCINATE (ER) 100 MG TAB.ER.24H PO SCH (10:17)
[2021-12-09 11:17] LABS: Glucose,Whole Blood 287 mg/dL (75-99)
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
[2021-12-09 12:40] VITALS: BMI 32.5
[2021-12-09 12:56] LABS: African American GFR (CKD) 53 (>60 ml/min/1.73 sqM); Anion Gap 8 mmol/L; Blood Urea Nitrogen 33 mg/dL (7-17); Calcium 9.6 mg/dL (8.4-10.2); Carbon Dioxide 32 mmol/L (22-30); Chloride 93 mmol/L (98-107); Glucose 284 mg/dL (74-99); Magnesium 1.8 mg/dL (1.6-2.3); Non-African American GFR(CKD) 46 (>60 ml/min/1.73 sqM); Potassium 5.6 mmol/L (3.5-5.1); Sodium 133 mmol/L (137-145)
--- NOTE | 2021-12-09 13:52 | XR ---
EXAMINATION TYPE: XR abdomen 2V DATE OF EXAM: 12/09/2021 COMPARISON: None INDICATION: Constipation abdominal pain TECHNIQUE: Abdomen is examined in the upright and supine views FINDINGS: Normal colonic bowel gas is present. Small amount of nonspecific small bowel gas is present. No mass effect is evident. Mild fecal debris is present. No suspicious air-fluid levels or differential air-f luid levels are present. Psoas margins are normal. No mass effect is evident. IMPRESSION: 1. Nonspecific abdomen
[2021-12-09] MEDS: ONDANSETRON 4 MG/2 ML VIAL IVP PRN (13:53)
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
[2021-12-09] MEDS: polyethylene glycoL 3350 17 GM POWD.PACK PO SCH (16:20)
[2021-12-09 16:46] LABS: Glucose,Whole Blood 222 mg/dL (75-99)
--- NOTE | 2021-12-09 16:49 | CT ---
EXAMINATION TYPE: CT brain wo con DATE OF EXAM: 12/09/2021 COMPARISON: CT 10/25/2021 HISTORY: Dizziness CT DLP: 1090.4 mGycm Automated exposure control for dose reduction was used. Helical imaging through the brain. FINDINGS: There is no hemorrhage or hydrocephalus. Brain shows a stable appearance. Calvarium is intact. Parana cheryl sinuses are well aerated, mastoids are unremarkable. Orbits show symmetric appearance. Low-attenu ation in the region of the external capsules bilaterally is unchanged. IMPRESSION: NO ACUTE ABNORMALITY.
--- NOTE | 2021-12-09 17:19 | CDI ---
Documentation Clarification Form Date: 12/09/2021 05:08:15 PM From: Latha Campbell RN CCDS Admit Date: 12/09/2021 02:20:00 PM Patient Name: Zari Mae Visit Number: [id number] Discharge Date: ATTENTION: The Clinical Documentation Specialists (CDI) and [facility] Coding Staff appreciate your assistance in clarifying documentation. Please respond to the clarification below the line at the bottom and electronically sign. The CDI & [facility] Coding staff will review the response and follow-up if needed. Please note: Queries are made part of the Legal Health Record. If you have any questions, please contact the author of this message via ITS. Dr. James Mackay Your patient has the documented diagnosis of unspecified Heart Failure 12/07, ED note. Additional information regarding the type, acuity of Heart failure is requested. History/Risk Factors: 76-year-old female presents to the ED with fever, vomiting, nausea for 2 to 3 weeks, cough and congestion. Medical History: COPD, Chronic atrial fibrillation, HTN with hypertensive heart disease, Heart Failure. 12/07, Ed note. Clinical Indicators: VS/Pulse OX: 12/17 B/P 136/79; HR 82; Temp 97.3F Oral; RR 16; SpO2 95% 4L nasal cannula BNP: 12/07 134 Echocardiogram Results: 09/07/20 EF 55-60% mild mitral regurgitation, trace tricuspid regurgitation. Chest X Ray: 12/07 Scattered senescent parenchymal changes noted. Hyperinflation compatible with COPD. Treatment: 12/07 to current Lasix 40mg PO BID; 12/08 to current Toprol Xl 100mg PO Daily; 12/07 current Aldactone 50mg PO TID. In your professional opinion, can you please clarify the acuity and type of CHF if known? [ ] Chronic Diastolic Heart Failure (preserved EF) [ ] Other, please specify [ ] Unable to determine (Template Last Revised: September 2020) MTDD
[2021-12-09 20:29] LABS: Glucose,Whole Blood 353 mg/dL (75-99)
[2021-12-09] MEDS: RIVAROXABAN 20 MG TAB PO SCH (21:41)
[2021-12-10] MEDS: MORPHINE SULFATE 2 MG/ML SYRINGE IV PRN ×3 (06:27→18:14)
[2021-12-10 06:54] LABS: Glucose,Whole Blood 263 mg/dL (75-99)
[2021-12-10] MEDS: methylPREDNISolone SOD SUCCI 40 MG/ML 1 ML VIAL IV SCH ×2 (08:34→21:45)
[2021-12-10] MEDS: INSULIN ASPART (NovoLOG) 100 UNIT/ML VIAL SQ SCH ×4 (08:34→21:46)
[2021-12-10] MEDS: HYDROCORTISONE 20 MG TAB PO SCH ×2 (08:35→21:46)
[2021-12-10] MEDS: SPIRONOLACTONE 25 MG TAB PO SCH ×3 (08:35→21:45)
[2021-12-10] MEDS: GABAPENTIN 300 MG CAP PO SCH ×3 (08:35→21:45)
[2021-12-10] MEDS: METOPROLOL SUCCINATE (ER) 100 MG TAB.ER.24H PO SCH (08:35)
[2021-12-10] MEDS: POTASSIUM CHLORIDE ER 20 MEQ TAB.ER PO SCH ×2 (08:36→18:52)
[2021-12-10] MEDS: oxyCODONE-APAP 7.5-325MG 1 EACH TAB PO SCH ×3 (08:36→21:44)
[2021-12-10] MEDS: FUROSEMIDE 40 MG TAB PO SCH ×2 (08:36→21:44)
[2021-12-10] MEDS: clonazePAM 1 MG TAB PO SCH ×3 (08:38→21:44)
[2021-12-10] MEDS: FLUoxetine HCL 20 MG CAP PO SCH (08:38)
[2021-12-10] MEDS: MIDODRINE 5 MG TAB PO SCH ×3 (08:38→21:59)
[2021-12-10] MEDS: PANTOPRAZOLE 40 MG TABLET PO SCH ×2 (08:38→17:22)
[2021-12-10] MEDS: ATORVASTATIN 40 MG TAB PO SCH (08:38)
[2021-12-10] MEDS: levETIRAcetam 500 MG TAB PO SCH ×3 (08:38→21:47)
[2021-12-10] MEDS: ACYCLOVIR 200 MG CAP PO SCH ×2 (08:39→21:47)
[2021-12-10] MEDS: methIMAzole 5 MG TAB PO SCH (08:39)
[2021-12-10] MEDS: polyethylene glycoL 3350 17 GM POWD.PACK PO SCH (08:40)
[2021-12-10] MEDS: ONDANSETRON 4 MG/2 ML VIAL IVP PRN ×2 (08:50→21:59)
[2021-12-10 11:27] LABS: Glucose,Whole Blood 529 mg/dL (75-99)
--- NOTE | 2021-12-10 11:32 | P.PN ---
Subjective Progress Note Date: 12/10/21 The patient is seen at bedside and feels about the same. Denies of any other neurological issues. Objective - Vital Signs Vital signs: Vital Signs Temp 97.5 F L 12/10/21 08:21 Pulse 80 12/10/21 08:21 Resp 20 12/10/21 08:21 BP 118/71 12/10/21 08:21 Pulse Ox 97 12/10/21 08:21 Intake & Output 12/09/21 12/10/21 12/10/21 18:59 06:59 18:59 Intake Total 540 180 Balance 540 180 Weight 88.904 kg Intake: Oral 540 180 Other: Voiding Method Bedside Commode # Voids 2 6 - Exam GENERAL: The patient is lying in bed and is not in acute distress. NEUROLOGICAL: Higher mental function: The patient is awake, alert, oriented to self, place and time. Patient is following commands. No aphasia and no neglect. Cranial nerves: The pupils are round, equal and reactive to light and accommodation. Visual bennett are full to confrontation throughout. Extraocular movement is intact no nystagmus is noted. Facial sensation is normal to touch throughout. The facial strength is normal throughout. HTongue is midline and moved [id number] without any difficulty. No dysarthria is noted. Shoulder shrug is normal bilaterally. Motor: Gait is deferred. The strength is 5 over 5 throughout. Normal tone and bulk. Cerebellum: Normal finger to nose bilaterally. Sensation: Sensation is normal to touch throughout. Reflexes (right/left): 2+ throughout while lowers are 1+ bilaterally.. Plantars are downgoing bilaterally. SOME OF THE WORK-UP: TSH is less than 0.015 and a free T4 is 2.15 suggestive of hyperthyroidism Patient the glucose on presentation is 125. Lewis virus PCR was not detected. Influenza A and B PCR was not detected CT brain: Is reported as no acute abnormality. - Labs CBC & Chem 7: 12/07/21 11:11 12/09/21 12:21 Labs: Abnormal Lab Results - Last 24 Hours (Table) 12/09/21 12/09/21 12/09/21 Range/Units 12:21 16:44 20:28 Sodium 133 L (137-145) mmol/L Potassium 5.6 H (3.5-5.1) mmol/L Chloride 93 L (98-107) mmol/L Carbon Dioxide 32 H (22-30) mmol/L BUN 33 H (7-17) mg/dL Creatinine 1.17 H (0.52-1.04) mg/dL Glucose 284 H (74-99) mg/dL POC Glucose (mg/dL) 222 H 353 H (75-99) mg/dL 12/10/21 Range/Units 06:52 Sodium (137-145) mmol/L Potassium (3.5-5.1) mmol/L Chloride (98-107) mmol/L Carbon Dioxide (22-30) mmol/L BUN (7-17) mg/dL Creatinine (0.52-1.04) mg/dL Glucose (74-99) mg/dL POC Glucose (mg/dL) 263 H (75-99) mg/dL Assessment and Plan Assessment: Dizziness. Unsure cause. Possibly related to multifactorial: uncontrolled hyperthyroidism, orthostatic hypotension, electrolyte imbalance, uncontrolled diabetes, polypharmacy. Dysphagia for the past 3 week with intermittent vomiting Hyperthyroidism and current labs remains uncontrolled Polypharmacy Cervical lumbar spondylosis grade 1 Diabetes and her sugars are uncontrolled (running in range of 200-500). Atrial fibrillation s/p ablation on Xarelto Syncope s/p Pacemaker Orthostatic hypotension G of reported seizure History of pulmonary embolism Hyperlipidemia Sleep apnea Plan: CT of head is repoted as no acute abnormality. Patient cannot get MRI because of the pacemaker orthostatic vitals are pending to be done. Every 4 hours neuro checks PT and OT are consulted GI team is consulted for dysphagia I feel the patient is on polypharmacy. We'll defer modification of the m edication to the primary team We'll defer the electrolyte imbalance and the rest of the medical management the primary team. Recommend for patient to follow-up with neurologist as outpatient within 1-2 weeks.. The plan is discussed with the patient and her nurse. Austin Aly M.D. Neuro-Hospitalist Time with Patient: Less than 30
[2021-12-10] MEDS ORDERED: INSULIN ASPART (NovoLOG) 100 UNIT/ML VIAL SQ ONE ×2 (12:15→21:29)
--- NOTE | 2021-12-10 12:56 | P.PN ---
Subjective Progress Note Date: 12/09/21 Principal diagnosis: Chest pain/mid sternal tenderness due to multifactorial processes including musculoskeletal pain due to nausea vomiting versus costochondritis versus fracture versus fibromyalgia COPD exacerbation, acute Chronic atrial fibrillation Hypertension hypertensive cardiovascular disease Diabetes mellitus GERD Dyslipidemia History of pulmonary embolism Seizure disorder Sleep disorder breathing and sleep apnea 12/09/2021, patient seen eval reexamined GI recommendation noted and reviewed, patient still having pain in the sternum severity however has improved, sugars are running on the higher side, denies any cough or sputum production respiratory status stable, nausea ongoing is present, computed tomography scan of the chest reviewed no acute fracture identified Patient is a 76-year-old female came into the hospital with multiple symptoms and complained using night sweats and chills fever vomiting and nausea going on for 2-3 week in addition patient was having headaches intermittent shortness of breath the symptoms were paroxysmal episode ache, patient has been on direct oral anticoagulants due to history of prior pulmonary embolism patient has a decreased appetite, denies any cough or sputum production, denies any dizziness lightheadedness or loss of consciousness or hemiparesis, today patient started having tenderness on the sternum and pleuritic pain on taking deep inspiration. Her CBC was within normal limit, covert as well as influenza A and B are negative, d-dimer is 0.28 magnesium is 1.5 troponin less than 0.012, chest x-ray COPD-like changes no acute processes identified, ECG ectopic atrial rhythm with moderate intraventricular conduction delay Objective - Vital Signs Vital signs: Vital Signs Temp 97.8 F 12/09/21 07:44 Pulse 80 12/09/21 07:44 Resp 19 12/09/21 07:44 BP 116/74 12/09/21 07:44 Pulse Ox 96 12/09/21 07:44 Intake & Output 12/08/21 12/09/21 12/09/21 18:59 06:59 18:59 Intake Total 360 360 Output Total 400 Balance 360 -400 360 Weight 88.904 kg Intake: Oral 360 360 Output: Urine 400 Other: Voiding Method Bedside Commode Bedside Commode # Voids 3 - Exam - Constitutional General appearance: average body habitus, disheveled - EENT Eyes: EOMI, PERRLA ENT: normal oropharynx Ears: bilateral: normal - Neck Neck: normal ROM Carotids: bilateral: upstroke normal Thyroid: bilateral: normal size - Respiratory On palpation of the sternum mid part mildly tender Respiratory: bilateral: diminished, negative: dullness, rales, rhonchi - Gastrointestinal General gastrointestinal: normal bowel sounds - Integumentary Integumentary: normal turgor - Neurologic Neurologic: CNII-XII intact - Musculoskeletal Musculoskeletal: gait normal, generalized weakness, strength equal bilaterally - Psychiatric Psychiatric: A&O x's 3, appropriate affect, intact judgment & insight - Labs CBC & Chem 7: 12/07/21 11:11 12/09/21 12:21 Labs: Abnormal Lab Results - Last 24 Hours (Table) 12/08/21 12/08/21 12/09/21 Range/Units 17:02 20:36 06:59 Sodium (137-145) mmol/L Potassium (3.5-5.1) mmol/L Chloride (98-107) mmol/L Carbon Dioxide (22-30) mmol/L BUN (7-17) mg/dL Creatinine (0.52-1.04) mg/dL Glucose (74-99) mg/dL POC Glucose (mg/dL) 190 H 364 H 211 H (75-99) mg/dL 12/09/21 12/09/21 Range/Units 11:15 12:21 Sodium 133 L (137-145) mmol/L Potassium 5.6 H (3.5-5.1) mmol/L Chloride 93 L (98-107) mmol/L Carbon Dioxide 32 H (22-30) mmol/L BUN 33 H (7-17) mg/dL Creatinine 1.17 H (0.52-1.04) mg/dL Glucose 284 H (74-99) mg/dL POC Glucose (mg/dL) 287 H (75-99) mg/dL Assessment and Plan Assessment: Chest pain/mid sternal tenderness due to multifactorial processes including musculoskeletal pain due to nausea vomiting versus costochondritis versus fract ure versus fibromyalgia COPD exacerbation, acute Chronic atrial fibrillation Hypertension hypertensive cardiovascular disease Diabetes mellitus GERD Dyslipidemia History of pulmonary embolism Seizure disorder Sleep disorder breathing and sleep apnea Plan: Agree with continuing home medications Pain control Bronchodilators IV steroids Supplemental oxygen Reviewed computed tomography scan of the chest without contrast, no acute fracture identified Time with Patient: Greater than 30
--- NOTE | 2021-12-10 12:58 | P.PN ---
Subjective Progress Note Date: 12/10/21 Principal diagnosis: Chest pain/mid sternal tenderness due to multifactorial processes including musculoskeletal pain due to nausea vomiting versus costochondritis versus fracture versus fibromyalgia COPD exacerbation, acute Chronic atrial fibrillation Hypertension hypertensive cardiovascular disease Diabetes mellitus GERD Dyslipidemia History of pulmonary embolism Seizure disorder Sleep disorder breathing and sleep apnea 12/10/2021, patient seen eval examined during the rounds labs reviewed medications reviewed care plan discussed, respiratory status stable, denies any chest pain some ache is still present sternum, sugars are running on the higher side will decrease the steroids to every 12, patient is throwing up saliva will put patient on Reglan patient also has constipation, will put patient on Senokot 12/09/2021, patient seen eval reexamined GI recommendation noted and reviewed, patient still having pain in the sternum severity however has improved, sugars are running on the higher side, denies any cough or sputum production respiratory status stable, nausea ongoing is present, computed tomography scan of the chest reviewed no acute fracture identified Patient is a 76-year-old female came into the hospital with multiple symptoms and complained using night sweats and chills fever vomiting and nausea going on for 2-3 week in addition patient was having headaches intermittent shortness of breath the symptoms were paroxysmal episode ache, patient has been on direct oral anticoagulants due to history of prior pulmonary embolism patient has a de creased appetite, denies any cough or sputum production, denies any dizziness lightheadedness or loss of consciousness or hemiparesis, today patient started having tenderness on the sternum and pleuritic pain on taking deep inspiration. Her CBC was within normal limit, covert as well as influenza A and B are negative, d-dimer is 0.28 magnesium is 1.5 troponin less than 0.012, chest x-ray COPD-like changes no acute processes identified, ECG ectopic atrial rhythm with moderate intraventricular conduction delay Objective - Vital Signs Vital signs: Vital Signs Temp 97.5 F L 12/10/21 08:21 Pulse 80 12/10/21 08:21 Resp 20 12/10/21 08:21 BP 118/71 12/10/21 08:21 Pulse Ox 97 12/10/21 08:21 Intake & Output 12/09/21 12/10/21 12/10/21 18:59 06:59 18:59 Intake Total 540 180 Balance 540 180 Weight 88.904 kg Intake: Oral 540 180 Other: Voiding Method Bedside Commode # Voids 2 6 - Exam - Constitutional General appearance: average body habitus, disheveled - EENT Eyes: EOMI, PERRLA ENT: normal oropharynx Ears: bilateral: normal - Neck Neck: normal ROM Carotids: bilateral: upstroke normal Thyroid: bilateral: normal size - Respiratory On palpation of the sternum mid part mildly tender Respiratory: bilateral: diminished, negative: dullness, rales, rhonchi - Gastrointestinal General gastrointestinal: normal bowel sounds - Integumentary Integumentary: normal turgor - Neurologic Neurologic: CNII-XII intact - Musculoskeletal Musculoskeletal: gait normal, generalized weakness, strength equal bilaterally - Psychiatric Psychiatric: A&O x's 3, appropriate affect, intact judgment & insight - Labs CBC & Chem 7: 12/07/21 11:11 12/09/21 12:21 Labs: Abnormal Lab Results - Last 24 Hours (Table) 12/09/21 12/09/21 12/09/21 Range/Units 12:21 16:44 20:28 Sodium 133 L (137-145) mmol/L Potassium 5.6 H (3.5-5.1) mmol/L Chloride 93 L (98-107) mmol/L Carbon Dioxide 32 H (22-30) mmol/L BUN 33 H (7-17) mg/dL Creatinine 1.17 H (0.52-1.04) mg/dL Glucose 284 H (74-99) mg/dL POC Glucose (mg/dL) 222 H 353 H (75-99) mg/dL 12/10/21 12/10/21 Range/Units 06:52 11:25 Sodium (137-145) mmol/L Potassium (3.5-5.1) mmol/L Chloride (98-107) mmol/L Carbon Dioxide (22-30) mmol/L BUN (7-17) mg/dL Creatinine (0.52-1.04) mg/dL Glucose (74-99) mg/dL POC Glucose (mg/dL) 263 H 529 H (75-99) mg/dL Assessment and Plan Assessment: Chest pain/mid sternal tenderness due to multifactorial processes including musculoskeletal pain due to nausea vomiting versus costochondritis versus fibromyalgia COPD exacerbation, acute Chronic atrial fibrillation Hypertension hypertensive cardiovascular disease Diabetes mellitus GERD Dyslipidemia History of pulmonary embolism Seizure disorder Sleep disorder breathing and sleep apnea Plan: Agree with continuing home medications Pain control Bronchodilators IV steroids, we'll start titrating it down Anti-emetics Supplemental oxygen Reviewed computed tomography scan of the chest without contrast, no acute fracture identified Time with Patient: Greater than 30
[2021-12-10] MEDS: INSULIN DETEMIR (LEVEMIR) 100 UNIT/ML SYR SQ SCH (13:37)
[2021-12-10] MEDS: METOCLOPRAMIDE 10 MG TAB PO SCH ×3 (13:37→21:46)
[2021-12-10] MEDS: SENNOSIDES 8.6 MG TAB PO SCH ×2 (13:37→21:44)
[2021-12-10 16:47] LABS: Glucose,Whole Blood 306 mg/dL (75-99)
[2021-12-10 16:58] LABS: African American GFR (CKD) 45 (>60 ml/min/1.73 sqM); Anion Gap 7 mmol/L; Blood Urea Nitrogen 44 mg/dL (7-17); Calcium 9.6 mg/dL (8.4-10.2); Carbon Dioxide 34 mmol/L (22-30); Chloride 90 mmol/L (98-107); Glucose 328 mg/dL (74-99); Magnesium 1.9 mg/dL (1.6-2.3); Non-African American GFR(CKD) 39 (>60 ml/min/1.73 sqM); Potassium 5.3 mmol/L (3.5-5.1); Sodium 131 mmol/L (137-145)
[2021-12-10] MEDS ORDERED: bisacodyL 10 MG SUPP RECTAL ONE (17:15)
[2021-12-10 20:16] LABS: Glucose,Whole Blood 320 mg/dL (75-99)
[2021-12-10] MEDS ORDERED: bisacodyL 10 MG SUPP RECTAL SCH (21:00)
[2021-12-10] MEDS: RIVAROXABAN 20 MG TAB PO SCH (21:47)
[2021-12-11 07:01] LABS: Glucose,Whole Blood 164 mg/dL (75-99)
[2021-12-11] MEDS: methylPREDNISolone SOD SUCCI 40 MG/ML 1 ML VIAL IV SCH ×2 (08:58→21:57)
[2021-12-11] MEDS: INSULIN ASPART (NovoLOG) 100 UNIT/ML VIAL SQ SCH ×4 (08:58→20:26)
[2021-12-11] MEDS: INSULIN DETEMIR (LEVEMIR) 100 UNIT/ML SYR SQ SCH (08:58)
[2021-12-11] MEDS: clonazePAM 1 MG TAB PO SCH ×3 (08:59→21:57)
[2021-12-11] MEDS: PANTOPRAZOLE 40 MG TABLET PO SCH ×2 (08:59→17:03)
[2021-12-11] MEDS: SPIRONOLACTONE 25 MG TAB PO SCH ×3 (08:59→21:57)
[2021-12-11] MEDS: FUROSEMIDE 40 MG TAB PO SCH ×2 (08:59→21:57)
[2021-12-11] MEDS: HYDROCORTISONE 20 MG TAB PO SCH ×2 (08:59→21:58)
[2021-12-11] MEDS: FLUoxetine HCL 20 MG CAP PO SCH (08:59)
[2021-12-11] MEDS: GABAPENTIN 300 MG CAP PO SCH ×3 (08:59→21:57)
[2021-12-11] MEDS: ATORVASTATIN 40 MG TAB PO SCH (08:59)
[2021-12-11] MEDS: MIDODRINE 5 MG TAB PO SCH ×3 (08:59→21:57)
[2021-12-11] MEDS: levETIRAcetam 500 MG TAB PO SCH ×3 (08:59→21:58)
[2021-12-11] MEDS: methIMAzole 5 MG TAB PO SCH (09:00)
[2021-12-11] MEDS: METOPROLOL SUCCINATE (ER) 100 MG TAB.ER.24H PO SCH (09:00)
[2021-12-11] MEDS: SENNOSIDES 8.6 MG TAB PO SCH ×2 (09:00→21:57)
[2021-12-11] MEDS: ACYCLOVIR 200 MG CAP PO SCH ×2 (09:00→21:58)
[2021-12-11] MEDS ORDERED: NON FORMULARY DRUG (Dulaglutide [Trulicity] 1.5 MG/0.5 ML Pen.Injctr) SQ SCH (09:00)
[2021-12-11] MEDS: oxyCODONE-APAP 7.5-325MG 1 EACH TAB PO SCH ×5 (09:01→21:56)
[2021-12-11] MEDS: METOCLOPRAMIDE 10 MG TAB PO SCH ×4 (09:01→21:58)
[2021-12-11] MEDS: MORPHINE SULFATE 2 MG/ML SYRINGE IV PRN ×3 (09:08→20:25)
[2021-12-11 09:09] LABS: Basophils # (A) 0.01 X 10*3/uL (0.00-0.10); Basophils % (A) 0.1 %; Eosinophils # (A) 0 X 10*3/uL (0.04-0.35); Eosinophils % (A) 0 %; HGB 14.1 g/dL (12.0-15.0); Immature Grans, Automated 0.4 %; Lymphocytes # (A) 1.06 X 10*3/uL (0.90-5.00); Lymphocytes % (A) 7.6 %; MCHC 31.3 g/dL (32.0-37.0); MCV 89.5 fL (80.0-97.0); Mean Platelet Volume 11.4 fL (9.5-12.2); Monocytes # (A) 0.89 X 10*3/uL (0.20-1.00); Monocytes % (A) 6.4 %; NRBC Per 100 WBC 0 /100 WBCS (0.0-0.0); Neutrophils # (A) 11.95 X 10*3/uL (1.80-7.70); Neutrophils % (A) 85.5 %; Platelet Count 381 X 10*3/uL (140-440); RBC 5.03 X 10*6/uL (4.10-5.20); RDW 13.5 % (11.5-14.5); WBC 13.96 X 10*3/uL (4.50-10.00)
[2021-12-11 09:18] LABS: Anion Gap 14.3 mmol/L (10.00-18.00); BUN/Creat Ratio 38.1 Ratio (12.00-20.00); Blood Urea Nitrogen 46.1 mg/dL (9.0-27.0); Calcium 10.1 mg/dL (8.7-10.3); Carbon Dioxide 28.6 mmol/L (20.0-27.5); Potassium 5.1 mmol/L (3.5-5.5)
[2021-12-11] MEDS: POTASSIUM CHLORIDE ER 20 MEQ TAB.ER PO SCH (09:32)
[2021-12-11] MEDS: polyethylene glycoL 3350 17 GM POWD.PACK PO SCH (09:32)
[2021-12-11 11:48] LABS: Glucose,Whole Blood 220 mg/dL (75-99)
--- NOTE | 2021-12-11 13:53 | P.PN ---
Subjective Progress Note Date: 12/11/21 The patient is seen at bedside and per nurse she is about the same and has not complained of dizziness. Upon seeing her she was sleeping. She had Orthostatic vital performed yesterday and Supine bp 145/77 with HR 70; sitting 115/75 with hr 76 standing 105/69 with HR 85 Objective - Vital Signs Vital signs: Vital Signs Temp 97.8 F 12/11/21 07:45 Pulse 71 12/11/21 07:45 Resp 18 12/11/21 07:45 BP 128/84 12/11/21 07:45 Pulse Ox 96 12/11/21 08:04 Intake & Output 12/10/21 12/11/21 12/11/21 18:59 06:59 18:59 Intake Total 180 180 Balance 180 180 Intake: Oral 180 180 Other: Voiding Method Bedside Commode # Voids 2 5 # Bowel Movements 0 1 - Exam GENERAL: The patient is lying in bed and does not appear in acute distress. NEUROLOGICAL: Limited since sleeping. No facial weakness. SOME OF THE WORK-UP: TSH is less than 0.015 and a free T4 is 2.15 suggestive of hyperthyroidism Patient the glucose on presentation is 125. Lewis virus PCR was not detected. Influenza A and B PCR was not detected CT brain: Is reported as no acute abnormality. - Labs CBC & Chem 7: 12/11/21 05:41 12/11/21 05:41 Labs: Abnormal Lab Results - Last 24 Hours (Table) 12/10/21 12/10/21 12/10/21 Range/Units 16:31 16:44 20:14 WBC (4.50-10.00) X 10*3/uL MCHC (32.0-37.0) g/dL Immature Gran # (0.00-0.04) X 10*3/uL Neutrophils # (1.80-7.70) X 10*3/uL Eosinophils # (0.04-0.35) X 10*3/uL Sodium 131 L (137-145) mmol/L Potassium 5.3 H (3.5-5.1) mmol/L Chloride 90 L (98-107) mmol/L Carbon Dioxide 34 H (22-30) mmol/L BUN 44 H (7-17) mg/dL Creatinine 1.34 H (0.52-1.04) mg/dL Est GFR (CKD-EPI)AfAm (60.0-200.0) Est GFR (CKD-EPI)NonAf (60.0-200.0) BUN/Creatinine Ratio (12.00-20.00) Ratio Glucose 328 H (74-99) mg/dL POC Glucose (mg/dL) 306 H 320 H (75-99) mg/dL 12/11/21 12/11/21 12/11/21 Range/Units 05:41 05:41 06:59 WBC 13.96 H (4.50-10.00) X 10*3/uL MCHC 31.3 L (32.0-37.0) g/dL Immature Gran # 0.05 H (0.00-0.04) X 10*3/uL Neutrophils # 11.95 H (1.80-7.70) X 10*3/uL Eosinophils # 0 L (0.04-0.35) X 10*3/uL Sodium (137-145) mmol/L Potassium (3.5-5.1) mmol/L Chloride 93 L (98-107) mmol/L Carbon Dioxide 28.6 H (22-30) mmol/L BUN 46.1 H (7-17) mg/dL Creatinine (0.52-1.04) mg/dL Est GFR (CKD-EPI)AfAm 51.0 L (60.0-200.0) Est GFR (CKD-EPI)NonAf 44.0 L (60.0-200.0) BUN/Creatinine Ratio 38.10 H (12.00-20.00) Ratio Glucose 209 H (74-99) mg/dL POC Glucose (mg/dL) 164 H (75-99) mg/dL 12/11/21 Range/Units 11:47 WBC (4.50-10.00) X 10*3/uL MCHC (32.0-37.0) g/dL Immature Gran # (0.00-0.04) X 10*3/uL Neutrophils # (1.80-7.70) X 10*3/uL Eosinophils # (0.04-0.35) X 10*3/uL Sodium (137-145) mmol/L Potassium (3.5-5.1) mmol/L Chloride (98-107) mmol/L Carbon Dioxide (22-30) mmol/L BUN (7-17) mg/dL Creatinine (0.52-1.04) mg/dL Est GFR (CKD-EPI)AfAm (60.0-200.0) Est GFR (CKD-EPI)NonAf (60.0-200.0) BUN/Creatinine Ratio (12.00-20.00) Ratio Glucose (74-99) mg/dL POC Glucose (mg/dL) 220 H (75-99) mg/dL Assessment and Plan Assessment: Dizziness. Unsure cause. Possibly related to multifactorial: Predominately positive orthostatic hypotension. Also component due to uncontrolled hyperthyroidism, electrolyte imbalance, uncontrolled diabetes, polypharmacy. Orthostatic hypotension Dysphagia for the past 3 week with intermittent vomiting Hyperthyroidism and current labs remains uncontrolled Polypharmacy Cervical lumbar spondylosis grade 1 Diabetes and her sugars are uncontrolled (running in range of 200-500). Atrial fibrillation s/p ablation on Xarelto Syncope s/p Pacemaker G of reported seizure History of pulmonary embolism Hyperlipidemia Sleep apnea Plan: CT of head is repoted as no acute abnormality. Patient cannot get MRI because of the pacemaker orthostatic vitals are positive. Patient is currently on Midodrine 10mg 1 tab tid, Cirtef 20mg bid. Recommend salt tabs and compression stocking. Consider Cardiology for further management of her orthostatic hypotension. Every 4 hours neuro checks PT and OT are consulted GI team is consulted for dysphagia I feel the patient is on polypharmacy. We'll defer modification of the medicat ion to the primary team We'll defer the electrolyte imbalance and the rest of the medical management the primary team. Recommend for patient to follow-up with neurologist as outpatient within 1-2 weeks.. The plan is discussed with her nurse. There is no further neurological work-up. Austin Aly M.D. Neuro-Hospitalist Time with Patient: Less than 30
--- NOTE | 2021-12-11 14:50 | P.PN ---
Subjective Progress Note Date: 12/11/21 Principal diagnosis: Chest pain/mid sternal tenderness due to multifactorial processes including musculoskeletal pain due to nausea vomiting versus costochondritis versus fracture versus fibromyalgia COPD exacerbation, acute Chronic atrial fibrillation Hypertension hypertensive cardiovascular disease Diabetes mellitus GERD Dyslipidemia History of pulmonary embolism Seizure disorder Sleep disorder breathing and sleep apnea 12/11/2021, patient is resting comfortably, remains on 4 L oxygen, pain is slightly better but still there with achy reproducible nature, nausea stable, in next 24-48 hours we'll DC meantime prednisone and continue Cortef as she is taking before, patient appears to be tolerating Reglan fairly well 12/10/2021, patient seen eval examined during the rounds labs reviewed medications reviewed care plan discussed, respiratory status stable, denies any chest pain some ache is still present sternum, sugars are running on the higher side will decrease the steroids to every 12, patient is throwing up saliva will put patient on Reglan patient also has constipation, will put patient on Senokot 12/09/2021, patient seen eval reexamined GI recommendation noted and reviewed, patient still having pain in the sternum severity however has improved, sugars are running on the higher side, denies any cough or sputum production respiratory status stable, nausea ongoing is present, computed tomography scan of the chest reviewed no acute fracture identified Patient is a 76-year-old female came into the hospital with multiple symptoms and complained using night sweats and chills fever vomiting and nausea going on for 2-3 week in addition patient was having headaches intermittent shortness of breath the symptoms were paroxysmal episode ache, patient has been on direct oral anticoagulants due to history of prior pulmonary embolism patient has a de creased appetite, denies any cough or sputum production, denies any dizziness lightheadedness or loss of consciousness or hemiparesis, today patient started having tenderness on the sternum and pleuritic pain on taking deep inspiration. Her CBC was within normal limit, covert as well as influenza A and B are negative, d-dimer is 0.28 magnesium is 1.5 troponin less than 0.012, chest x-ray COPD-like changes no acute processes identified, ECG ectopic atrial rhythm with moderate intraventricular conduction delay Objective - Vital Signs Vital signs: Vital Signs Temp 97.8 F 12/11/21 07:45 Pulse 71 12/11/21 07:45 Resp 18 12/11/21 07:45 BP 128/84 12/11/21 07:45 Pulse Ox 96 12/11/21 08:04 Intake & Output 12/10/21 12/11/21 12/11/21 18:59 06:59 18:59 Intake Total 180 180 Balance 180 180 Intake: Oral 180 180 Other: Voiding Method Bedside Commode # Voids 2 5 # Bowel Movements 0 1 - Exam - Constitutional General appearance: average body habitus, disheveled - EENT Eyes: EOMI, PERRLA ENT: normal oropharynx Ears: bilateral: normal - Neck Neck: normal ROM Carotids: bilateral: upstroke normal Thyroid: bilateral: normal size - Respiratory On palpation of the sternum mid part mildly tender Respiratory: bilateral: diminished, negative: dullness, rales, rhonchi - Gastrointestinal General gastrointestinal: normal bowel sounds - Integumentary Integumentary: normal turgor - Neurologic Neurologic: CNII-XII intact - Musculoskeletal Musculoskeletal: gait normal, generalized weakness, strength equal bilaterally - Psychiatric Psychiatric: A&O x's 3, appropriate affect, intact judgment & insight - Labs CBC & Chem 7: 12/11/21 05:41 12/11/21 05:41 Labs: Abnormal Lab Results - Last 24 Hours (Table) 12/10/21 12/10/21 12/10/21 Range/Units 16:31 16:44 20:14 WBC (4.50-10.00) X 10*3/uL MCHC (32.0-37.0) g/dL Immature Gran # (0.00-0.04) X 10*3/uL Neutrophils # (1.80-7.70) X 10*3/uL Eosinophils # (0.04-0.35) X 10*3/uL Sodium 131 L (137-145) mmol/L Potassium 5.3 H (3.5-5.1) mmol/L Chloride 90 L (98-107) mmol/L Carbon Dioxide 34 H (22-30) mmol/L BUN 44 H (7-17) mg/dL Creatinine 1.34 H (0.52-1.04) mg/dL Est GFR (CKD-EPI)AfAm (60.0-200.0) Est GFR (CKD-EPI)NonAf (60.0-200.0) BUN/Creatinine Ratio (12.00-20.00) Ratio Glucose 328 H (74-99) mg/dL POC Glucose (mg/dL) 306 H 320 H (75-99) mg/dL 12/11/21 12/11/21 12/11/21 Range/Units 05:41 05:41 06:59 WBC 13.96 H (4.50-10.00) X 10*3/uL MCHC 31.3 L (32.0-37.0) g/dL Immature Gran # 0.05 H (0.00-0.04) X 10*3/uL Neutrophils # 11.95 H (1.80-7.70) X 10*3/uL Eosinophils # 0 L (0.04-0.35) X 10*3/uL Sodium (137-145) mmol/L Potassium (3.5-5.1) mmol/L Chloride 93 L (98-107) mmol/L Carbon Dioxide 28.6 H (22-30) mmol/L BUN 46.1 H (7-17) mg/dL Creatinine (0.52-1.04) mg/dL Est GFR (CKD-EPI)AfAm 51.0 L (60.0-200.0) Est GFR (CKD-EPI)NonAf 44.0 L (60.0-200.0) BUN/Creatinine Ratio 38.10 H (12.00-20.00) Ratio Glucose 209 H (74-99) mg/dL POC Glucose (mg/dL) 164 H (75-99) mg/dL 12/11/21 Range/Units 11:47 WBC (4.50-10.00) X 10*3/uL MCHC (32.0-37.0) g/dL Immature Gran # (0.00-0.04) X 10*3/uL Neutrophils # (1.80-7.70) X 10*3/uL Eosinophils # (0.04-0.35) X 10*3/uL Sodium (137-145) mmol/L Potassium (3.5-5.1) mmol/L Chloride (98-107) mmol/L Carbon Dioxide (22-30) mmol/L BUN (7-17) mg/dL Creatinine (0.52-1.04) mg/dL Est GFR (CKD-EPI)AfAm (60.0-200.0) Est GFR (CKD-EPI)NonAf (60.0-200.0) BUN/Creatinine Ratio (12.00-20.00) Ratio Glucose (74-99) mg/dL POC Glucose (mg/dL) 220 H (75-99) mg/dL Assessment and Plan Assessment: Chest pain/mid sternal tenderness due to multifactorial processes including musculoskeletal pain due to nausea vomiting versus costochondritis versus fibromyalgia COPD exacerbation, acute Chronic atrial fibrillation Hypertension hypertensive cardiovascular disease Diabetes mellitus GERD Dyslipidemia History of pulmonary embolism Seizure disorder Sleep disorder breathing and sleep apnea Plan: Agree with continuing home medications Pain control Bronchodilators IV steroids, we'll start titrating it down, hopefully will DC the next 24-48 hours continue Cortef as she was taking before Anti-emetics Supplemental oxygen Reviewed computed tomography scan of the chest without contrast, no acute fracture identified Time with Patient: Greater than 30
[2021-12-11] MEDS: ONDANSETRON 4 MG/2 ML VIAL IVP PRN (14:53)
[2021-12-11 16:35] LABS: Glucose,Whole Blood 431 mg/dL (75-99)
[2021-12-11] MEDS ORDERED: INSULIN ASPART (NovoLOG) 100 UNIT/ML VIAL SQ ONE ×2 (18:26→20:20)
[2021-12-11 20:04] LABS: Glucose,Whole Blood 458 mg/dL (75-99)
[2021-12-11 21:37] LABS: Glucose,Whole Blood 282 mg/dL (75-99)
[2021-12-11] MEDS: RIVAROXABAN 20 MG TAB PO SCH (21:57)
--- NOTE | 2021-12-12 00:20 | P.PN ---
Subjective Progress Note Date: 12/11/21 This is 76-year-old female with multiple comorbidities including atrial fibrillation, asthma, bladder cancer, heart failure, COPD, diabetes mellitus, fibromyalgia, GERD, hyperlipidemia, osteoarthritis, pulmonary embolism, seizure disorder, sleep apnea and syncope. Patient [facility] to [facility] with multiple complaints including generalized weakness, shortness of breath, nausea and vomiting and constipation for the last 8 days duration. Sweats chills weakness for the last 2-3 weeks duration along with intermittent nausea and vomiting. Patient states she vomits after certain foods such as breads and he eats. She states that it feels like it gets stuck in her throat. She has no previous history of EGD and her last colonoscopy was several years ago. She denies any hematemesis. States her last bowel movement was about 8 days ago. States that she just recently went to her family doctor to discuss her symptoms and was told to come to the emergency department. Patient is on Xarelto for atrial fibrillation and previous pulmonary embolism last dose taken 07/08/2021. 12/10/2021 Patient is currently resting in the bed. Still complains of the leg something stuck in the throat. Patient refused to get Betasal yesterday. Otherwise able to tolerate oral diet today. Complains of nausea. No vomiting. No fever no chills. No chest pain or shortness of breath. Patient is being continued methylprednisolone and anticoagulation with Xarelto. Pulmonary is also on board. Patient was seen by GI. 12/11/2021 Patient is currently resting in the bed. Awake alert oriented x3. Able to tolerate oral diet. Still having symptoms of dysphagia. Breathing status is stable. Patient is also on IV steroids and breathing treatments. Pulmonary is on board. Barium swallow on Sunday. Patient is agreeable to get the procedure. Continue with symptomatic management. Laboratory data reviewed showed WBC 13.9 hemoglobin 14.1 and platelets 381 Sodium 136 potassium 5.1 chloride 93 BUN 46 1.1 and creatinine 1.2 and platelets 209 patient declined insulin sliding scale and follow-up closely. Potassium replacement changed to daily instead of twice daily. Potassium level is 5.3 yesterday. Current medications reviewed. Objective - Vital Signs Vital signs: Vital Signs Temp 97.8 F 12/11/21 07:45 Pulse 71 12/11/21 07:45 Resp 18 12/11/21 07:45 BP 128/84 12/11/21 07:45 Pulse Ox 96 12/11/21 08:04 Intake & Output 12/10/21 12/11/21 12/11/21 18:59 06:59 18:59 Intake Total 180 180 Balance 180 180 Intake: Oral 180 180 Other: Voiding Method Bedside Commode # Voids 2 5 # Bowel Movements 0 1 - Exam General appearance: The patient is alert, oriented, appears in no acute distress. HET: Head is normocephalic and atraumatic. Conjunctiva pink. Sclera anicteric. Neck: Supple without lymphadenopathy. Trachea midline. Heart: S1 S2. Regular rate and rhythm. Lungs: Clear to auscultation. Abdomen: Soft, obese, nontender, nondistended with bowel sounds. No guarding or rigidity. Skin: No rashes. No jaundice. Extremities: Normal skin color and turgor. No pedal edema. Neurological: No focal deficits. Alert and oriented x3. - Labs CBC & Chem 7: 12/11/21 05:41 12/11/21 05:41 Labs: Abnormal Lab Results - Last 24 Hours (Table) 12/10/21 12/10/21 12/10/21 Range/Units 16:31 16:44 20:14 WBC (4.50-10.00) X 10*3/uL MCHC (32.0-37.0) g/dL Immature Gran # (0.00-0.04) X 10*3/uL Neutrophils # (1.80-7.70) X 10*3/uL Eosinophils # (0.04-0.35) X 10*3/uL Sodium 131 L (137-145) mmol/L Potassium 5.3 H (3.5-5.1) mmol/L Chloride 90 L (98-107) mmol/L Carbon Dioxide 34 H (22-30) mmol/L BUN 44 H (7-17) mg/dL Creatinine 1.34 H (0.52-1.04) mg/dL Est GFR (CKD-EPI)AfAm (60.0-200.0) Est GFR (CKD-EPI)NonAf (60.0-200.0) BUN/Creatinine Ratio (12.00-20.00) Ratio Glucose 328 H (74-99) mg/dL POC Glucose (mg/dL) 306 H 320 H (75-99) mg/dL 12/11/21 12/11/21 12/11/21 Range/Units 05:41 05:41 06:59 WBC 13.96 H (4.50-10.00) X 10*3/uL MCHC 31.3 L (32.0-37.0) g/dL Immature Gran # 0.05 H (0.00-0.04) X 10*3/uL Neutrophils # 11.95 H (1.80-7.70) X 10*3/uL Eosinophils # 0 L (0.04-0.35) X 10*3/uL Sodium (137-145) mmol/L Potassium (3.5-5.1) mmol/L Chloride 93 L (98-107) mmol/L Carbon Dioxide 28.6 H (22-30) mmol/L BUN 46.1 H (7-17) mg/dL Creatinine (0.52-1.04) mg/dL Est GFR (CKD-EPI)AfAm 51.0 L (60.0-200.0) Est GFR (CKD-EPI)NonAf 44.0 L (60.0-200.0) BUN/Creatinine Ratio 38.10 H (12.00-20.00) Ratio Glucose 209 H (74-99) mg/dL POC Glucose (mg/dL) 164 H (75-99) mg/dL 12/11/21 Range/Units 11:47 WBC (4.50-10.00) X 10*3/uL MCHC (32.0-37.0) g/dL Immature Gran # (0.00-0.04) X 10*3/uL Neutrophils # (1.80-7.70) X 10*3/uL Eosinophils # (0.04-0.35) X 10*3/uL Sodium (137-145) mmol/L Potassium (3.5-5.1) mmol/L Chloride (98-107) mmol/L Carbon Dioxide (22-30) mmol/L BUN (7-17) mg/dL Creatinine (0.52-1.04) mg/dL Est GFR (CKD-EPI)AfAm (60.0-200.0) Est GFR (CKD-EPI)NonAf (60.0-200.0) BUN/Creatinine Ratio (12.00-20.00) Ratio Glucose (74-99) mg/dL POC Glucose (mg/dL) 220 H (75-99) mg/dL Assessment and Plan Assessment: Dysphagia and nausea and vomiting on admission. Follow-up barium swallow. Patient refused barium swallow yesterday. Orthostatic hypotension. Likely due to volume depletion. Exacerbation Hyperthyroidism Hypomagnesemia Generalized weakness Chronic atrial fibrillation/flutter on anticoagulation with Eliquis COPD Diabetes type 2 Fibromyalgia GERD Hyperlipidemia Osteoarthritis History of PE Obstructive sleep apnea Extremity Anxiety/depression and History of permanent placement placement Previous history of smoking Plan: Patient will be continued symptomatic management for nausea and vomiting. Continue with pain management. Barium swallow study likely on Sunday. Continue with home medications and anticoagulation with Xarelto. Follow-up closely. Insulin sliding scale. Continue with methimazole 5 mg daily and follow-up with endocrinology as an outpatient. Prognosis is guarded with multiple medical problems and comorbid conditions. Time with Patient: Greater than 30
--- NOTE | 2021-12-12 00:23 | P.PN ---
Subjective Progress Note Date: 12/10/21 This is 76-year-old female with multiple comorbidities including atrial fibrillation, asthma, bladder cancer, heart failure, COPD, diabetes mellitus, fibromyalgia, GERD, hyperlipidemia, osteoarthritis, pulmonary embolism, seizure disorder, sleep apnea and syncope. Patient presented to the emergency [facility] with multiple complaints including generalized weakness, shortness of breath, nausea and vomiting and constipation for the last 8 days duration. Sweats chills weakness for the last 2-3 weeks duration along with intermittent nausea and vomiting. Patient states she vomits after certain foods such as breads and he eats. She states that it feels like it gets stuck in her throat. She has no previous history of EGD and her last colonoscopy was several years ago. She denies any hematemesis. States her last bowel movement was about 8 days ago. States that she just recently went to her family doctor to discuss her symptoms and was told to come to the emergency department. Patient is on Xarelto for atrial fibrillation and previous pulmonary embolism last dose taken 07/08/2021. 12/10/2021 Patient is currently resting in the bed. Still complains of the leg something stuck in the throat. Patient refused to get Betasal yesterday. Otherwise able to tolerate oral diet today. Complains of nausea. No vomiting. No fever no chills. No chest pain or shortness of breath. Patient is being continued methylprednisolone and anticoagulation with Xarelto. Pulmonary is also on board. Patient was seen by GI. Current medications reviewed. Objective - Vital Signs Vital signs: Vital Signs Temp 97.8 F 12/11/21 07:45 Pulse 71 12/11/21 07:45 Resp 18 12/11/21 07:45 BP 128/84 12/11/21 07:45 Pulse Ox 96 12/11/21 08:04 Intake & Output 12/10/21 12/11/21 12/11/21 18:59 06:59 18:59 Intake Total 180 180 Balance 180 180 Intake: Oral 180 180 Other: Voiding Method Bedside Commode # Voids 2 5 # Bowel Movements 0 1 - Exam General appearance: The patient is alert, oriented, appears in no acute distress. HET: Head is normocephalic and atraumatic. Conjunctiva pink. Sclera anicteric. Neck: Supple without lymphadenopathy. Trachea midline. Heart: S1 S2. Regular rate and rhythm. Lungs: Clear to auscultation. Abdomen: Soft, obese, nontender, nondistended with bowel sounds. No guarding or rigidity. Skin: No rashes. No jaundice. Extremities: Normal skin color and turgor. No pedal edema. Neurological: No focal deficits. Alert and oriented x3. - Labs CBC & Chem 7: 12/11/21 05:41 12/11/21 05:41 Labs: Abnormal Lab Results - Last 24 Hours (Table) 12/10/21 12/10/21 12/10/21 Range/Units 16:31 16:44 20:14 WBC (4.50-10.00) X 10*3/uL MCHC (32.0-37.0) g/dL Immature Gran # (0.00-0.04) X 10*3/uL Neutrophils # (1.80-7.70) X 10*3/uL Eosinophils # (0.04-0.35) X 10*3/uL Sodium 131 L (137-145) mmol/L Potassium 5.3 H (3.5-5.1) mmol/L Chloride 90 L (98-107) mmol/L Carbon Dioxide 34 H (22-30) mmol/L BUN 44 H (7-17) mg/dL Creatinine 1.34 H (0.52-1.04) mg/dL Est GFR (CKD-EPI)AfAm (60.0-200.0) Est GFR (CKD-EPI)NonAf (60.0-200.0) BUN/Creatinine Ratio (12.00-20.00) Ratio Glucose 328 H (74-99) mg/dL POC Glucose (mg/dL) 306 H 320 H (75-99) mg/dL 12/11/21 12/11/21 12/11/21 Range/Units 05:41 05:41 06:59 WBC 13.96 H (4.50-10.00) X 10*3/uL MCHC 31.3 L (32.0-37.0) g/dL Immature Gran # 0.05 H (0.00-0.04) X 10*3/uL Neutrophils # 11.95 H (1.80-7.70) X 10*3/uL Eosinophils # 0 L (0.04-0.35) X 10*3/uL Sodium (137-145) mmol/L Potassium (3.5-5.1) mmol/L Chloride 93 L (98-107) mmol/L Carbon Dioxide 28.6 H (22-30) mmol/L BUN 46.1 H (7-17) mg/dL Creatinine (0.52-1.04) mg/dL Est GFR (CKD-EPI)AfAm 51.0 L (60.0-200.0) Est GFR (CKD-EPI)NonAf 44.0 L (60.0-200.0) BUN/Creatinine Ratio 38.10 H (12.00-20.00) Ratio Glucose 209 H (74-99) mg/dL POC Glucose (mg/dL) 164 H (75-99) mg/dL 12/11/21 Range/Units 11:47 WBC (4.50-10.00) X 10*3/uL MCHC (32.0-37.0) g/dL Immature Gran # (0.00-0.04) X 10*3/uL Neutrophils # (1.80-7.70) X 10*3/uL Eosinophils # (0.04-0.35) X 10*3/uL Sodium (137-145) mmol/L Potassium (3.5-5.1) mmol/L Chloride (98-107) mmol/L Carbon Dioxide (22-30) mmol/L BUN (7-17) mg/dL Creatinine (0.52-1.04) mg/dL Est GFR (CKD-EPI)AfAm (60.0-200.0) Est GFR (CKD-EPI)NonAf (60.0-200.0) BUN/Creatinine Ratio (12.00-20.00) Ratio Glucose (74-99) mg/dL POC Glucose (mg/dL) 220 H (75-99) mg/dL Assessment and Plan Assessment: Dysphagia and nausea and vomiting on admission. Follow-up barium swallow. Patient refused barium swallow yesterday. Orthostatic hypotension. Likely due to volume depletion. Exacerbation Hyperthyroidism Hypomagnesemia Generalized weakness Chronic atrial fibrillation/flutter on anticoagulation with Eliquis COPD Diabetes type 2 Fibromyalgia GERD Hyperlipidemia Osteoarthritis History of PE Obstructive sleep apnea Extremity Anxiety/depression and History of permanent placement placement Previous history of smoking Plan: Patient will be continued symptomatic management for nausea and vomiting. Continue with pain management. Barium swallow study likely on Sunday. Continue with home medications and anticoagulation with Xarelto. Follow-up closely. Insulin sliding scale. Continue with methimazole 5 mg daily and follow-up with endocrinology as an out patient. Prognosis is guarded with multiple medical problems and comorbid conditions. Time with Patient: Greater than 30
[2021-12-12 01:20] LABS: Glucose,Whole Blood 239 mg/dL (75-99)
[2021-12-12 10:52] LABS: Glucose,Whole Blood 182 mg/dL (75-99)
[2021-12-12 11:04] LABS: Glucose,Whole Blood 343 mg/dL (75-99)
[2021-12-12] MEDS: MORPHINE SULFATE 2 MG/ML SYRINGE IV PRN (11:20)
[2021-12-12] MEDS ORDERED: ACETAMINOPHEN TAB 325 MG TAB PO PRN (11:47)
--- NOTE | 2021-12-12 12:13 | P.PN ---
Subjective Progress Note Date: 12/12/21 Principal diagnosis: Chest pain/mid sternal tenderness due to multifactorial processes including musculoskeletal pain due to nausea vomiting versus costochondritis versus fracture versus fibromyalgia COPD exacerbation, acute Chronic atrial fibrillation Hypertension hypertensive cardiovascular disease Diabetes mellitus GERD Dyslipidemia History of pulmonary embolism Seizure disorder Sleep disorder breathing and sleep apnea 12/12/2021, patient seen eval reexamined denies nausea improved not throwing up saliva, sternal pain has improved breathing is stable and able to get to the bathroom without any severe respiratory distress will DC Solu-Medrol continue Cortef as taken before continue other home medication with the addition of Reglan which appears to be helping 12/11/2021, patient is resting comfortably, remains on 4 L oxygen, pain is slightly better but still there with achy reproducible nature, nausea stable, in next 24-48 hours we'll DC meantime prednisone and continue Cortef as she is taking before, patient appears to be tolerating Reglan fairly well 12/10/2021, patient seen eval examined during the rounds labs reviewed medications reviewed care plan discussed, respiratory status stable, denies any chest pain some ache is still present sternum, sugars are running on the higher side will decrease the steroids to every 12, patient is throwing up saliva will put patient on Reglan patient also has constipation, will put patient on Senokot 12/09/2021, patient seen eval reexamined GI recommendation noted and reviewed, patient still having pain in the sternum severity however has improved, sugars are running on the higher side, denies any cough or sputum production respiratory status stable, nausea ongoing is present, computed tomography scan of the chest reviewed no acute fracture identified Patient is a 76-year-old female came into the hospital with multiple symptoms and complained using night sweats and chills fever vomiting and nausea going on for 2-3 week in addition patient was having headaches intermittent shortness of breath the symptoms were paroxysmal episode ache, patient has been on direct oral anticoagulants due to history of prior pulmonary embolism patient has a decreased appetite, denies any cough or sputum production, denies any dizziness lightheadedness or loss of consciousness or hemiparesis, today patient started having tenderness on the sternum and pleuritic pain on taking deep inspiration. Her CBC was within normal limit, covert as well as influenza A and B are negative, d-dimer is 0.28 magnesium is 1.5 troponin less than 0.012, chest x-ray COPD-like changes no acute processes identified, ECG ectopic atrial rhythm with moderate intraventricular conduction delay Objective - Vital Signs Vital signs: Vital Signs Temp 98.5 F 12/12/21 01:22 Pulse 65 12/12/21 01:22 Resp 16 12/12/21 01:22 BP 181/83 12/12/21 01:22 Pulse Ox 95 12/12/21 01:22 Intake & Output 12/11/21 12/12/21 12/12/21 18:59 06:59 18:59 Intake Total 360 Balance 360 Intake: Oral 360 Other: Voiding Method Bedside Commode # Voids 3 # Bowel Movements 0 - Exam - Constitutional General appearance: average body habitus, disheveled - EENT Eyes: EOMI, PERRLA ENT: normal oropharynx Ears: bilateral: normal - Neck Neck: normal ROM Carotids: bilateral: upstroke normal Thyroid: bilateral: normal size - Respiratory On palpation of the sternum mid part mildly tender Respiratory: bilateral: diminished, negative: dullness, rales, rhonchi - Gastrointestinal General gastrointestinal: normal bowel sounds - Integumentary Integumentary: normal turgor - Neurologic Neurologic: CNII-XII intact - Musculoskeletal Musculoskeletal: gait normal, generalized weakness, strength equal bilaterally - Psychiatric Psychiatric: A&O x's 3, appropriate affect, intact judgment & insight - Labs CBC & Chem 7: 12/11/21 05:41 12/11/21 05:41 Labs: Abnormal Lab Results - Last 24 Hours (Table) 12/11/21 12/11/21 12/11/21 Range/Units 16:33 20:02 21:35 POC Glucose (mg/dL) 431 H 458 H 282 H (75-99) mg/dL 12/12/21 12/12/21 12/12/21 Range/Units 01:19 07:05 11:03 POC Glucose (mg/dL) 239 H 182 H 343 H (75-99) mg/dL Assessment and Plan Assessment: Chest pain/mid sternal tenderness due to multifactorial processes including musculoskeletal pain due to nausea vomiting versus costochondritis versus fibromyalgia continued to improve progressively COPD exacerbation, acute, improving Chronic atrial fibrillation Hypertension hypertensive cardiovascular disease Diabetes mellitus GERD Dyslipidemia History of pulmonary embolism Seizure disorder Sleep disorder breathing and sleep apnea Plan: Agree with continuing home medications Pain control Bronchodilators IV steroids, we'll start titrating it down, hopefully will DC the next 24-48 hours continue Cortef as she was taking before Anti-emetics Supplemental oxygen Reviewed computed tomography scan of the chest without contrast, no acute fracture identified Time with Patient: Greater than 30
--- NOTE | 2021-12-12 13:37 | FL ---
EXAMINATION TYPE: FL barium swallow w video DATE OF EXAM: 12/12/2021 COMPARISON: NONE HISTORY: Lump in throat spitting up saliva difficulty swallowing TECHNIQUE: Fluoroscopy. FINDINGS: Fluoroscopic guidance was provided for the procedure performed in conjunction with the [facility] ech pathology department. Please see complete report forthcoming from the Speech Pathology departmen t. Various consistencies from thin liquid to solids were administered. Fluoroscopy time 1 minute 49 seconds. Number of images: 0. There is aspiration with honey thick consistency. This could not be reproduced with additional admini stration. Remaining consistencies were normal. Please see speech pathology report. No significant pooling was observed in the vallecula. There was otherwise normal propulsion of the bolus. IMPRESSION: 1. Solitary episode of aspiration with honey thick consistency could not be reproduced with additiona l consistencies or repeat honey thick. Please see complete report forthcoming from the speech patholo gy department.
[2021-12-12] MEDS: INSULIN ASPART (NovoLOG) 100 UNIT/ML VIAL SQ SCH ×4 (13:42→21:09)
[2021-12-12] MEDS: clonazePAM 1 MG TAB PO SCH ×3 (13:42→21:10)
[2021-12-12] MEDS: ATORVASTATIN 40 MG TAB PO SCH (13:42)
[2021-12-12] MEDS: INSULIN DETEMIR (LEVEMIR) 100 UNIT/ML SYR SQ SCH (13:42)
[2021-12-12] MEDS: PANTOPRAZOLE 40 MG TABLET PO SCH ×2 (13:42→17:43)
[2021-12-12] MEDS: ACYCLOVIR 200 MG CAP PO SCH ×2 (13:42→21:10)
[2021-12-12] MEDS: METOCLOPRAMIDE 10 MG TAB PO SCH ×4 (13:42→21:10)
[2021-12-12] MEDS: FLUoxetine HCL 20 MG CAP PO SCH (13:43)
[2021-12-12] MEDS: levETIRAcetam 500 MG TAB PO SCH ×3 (13:43→21:10)
[2021-12-12] MEDS: FUROSEMIDE 40 MG TAB PO SCH ×2 (13:43→21:10)
[2021-12-12] MEDS: MIDODRINE 5 MG TAB PO SCH ×3 (13:43→21:10)
[2021-12-12] MEDS: GABAPENTIN 300 MG CAP PO SCH ×3 (13:43→21:10)
[2021-12-12] MEDS: HYDROCORTISONE 20 MG TAB PO SCH ×2 (13:43→21:10)
[2021-12-12] MEDS: METOPROLOL SUCCINATE (ER) 100 MG TAB.ER.24H PO SCH (13:43)
[2021-12-12] MEDS: methIMAzole 5 MG TAB PO SCH (13:43)
[2021-12-12] MEDS: oxyCODONE-APAP 7.5-325MG 1 EACH TAB PO SCH ×3 (13:43→21:10)
[2021-12-12] MEDS: SENNOSIDES 8.6 MG TAB PO SCH ×2 (13:44→21:10)
[2021-12-12] MEDS: SPIRONOLACTONE 25 MG TAB PO SCH ×3 (13:44→21:10)
[2021-12-12] MEDS: POTASSIUM CHLORIDE ER 20 MEQ TAB.ER PO SCH (13:44)
[2021-12-12] MEDS: methylPREDNISolone SOD SUCCI 40 MG/ML 1 ML VIAL IV SCH (13:44)
[2021-12-12] MEDS: polyethylene glycoL 3350 17 GM POWD.PACK PO SCH (13:44)
[2021-12-12 16:31] LABS: Glucose,Whole Blood 259 mg/dL (75-99)
--- NOTE | 2021-12-12 17:28 | P.PN ---
Subjective Progress Note Date: 12/12/21 The patient is seen at bedside and feels about the same. Denies of any other neurological issues. It seems the patient had Barium swallow today and it is reported as solitary episode of aspiration with honey thick consistency could be reproduced with additional consistencies or repeat honey thick. GI consulted and stated outpatient evaluation per nurse. Also GI recommended ENT since has throat pain. Objective - Vital Signs Vital signs: Vital Signs Temp 97.3 F L 12/12/21 14:00 Pulse 72 12/12/21 14:00 Resp 19 12/12/21 14:00 BP 120/67 12/12/21 14:00 Pulse Ox 97 12/12/21 14:00 Intake & Output 12/11/21 12/12/21 12/12/21 18:59 06:59 18:59 Intake Total 360 Balance 360 Weight 88.904 kg Intake: Oral 360 Other: Voiding Method Bedside Commode # Voids 3 # Bowel Movements 0 - Exam GENERAL: The patient is lying in bed and does not appear in acute distress. NEUROLOGICAL: Limited since sleeping. No facial weakness. SOME OF THE WORK-UP: TSH is less than 0.015 and a free T4 is 2.15 suggestive of hyperthyroidism Patient the glucose on presentation is 125. Lewis virus PCR was not detected. Influenza A and B PCR was not detected CT brain: Is reported as no acute abnormality. - Labs CBC & Chem 7: 12/11/21 05:41 12/11/21 05:41 Labs: Abnormal Lab Results - Last 24 Hours (Table) 12/11/21 12/11/21 12/12/21 Range/Units 20:02 21:35 01:19 POC Glucose (mg/dL) 458 H 282 H 239 H (75-99) mg/dL 12/12/21 12/12/21 12/12/21 Range/Units 07:05 11:03 16:30 POC Glucose (mg/dL) 182 H 343 H 259 H (75-99) mg/dL Assessment and Plan Assessment: Dizziness. Unsure cause. Possibly related to multifactorial: Predominately positive orthostatic hypotension. Also component due to uncontrolled hyperthyroidism, electrolyte imbalance, uncontrolled diabetes, polypharmacy. Orthostatic hypotension Dysphagia for the past 3 week with intermittent vomiting Hyperthyroidism and current labs remains uncontrolled Polypharmacy Cervical lumbar spondylosis grade 1 Diabetes and her sugars are uncontrolled (running in range of 200-500). Atrial fibrillation s/p ablation on Xarelto Syncope s/p Pacemaker G of reported seizure History of pulmonary embolism Hyperlipidemia Sleep apnea Plan: CT of head is repoted as no acute abnormality. Patient cannot get MRI because of the pacemaker orthostatic vitals are positive. Patient is currently on Midodrine 10mg 1 tab tid, Cirtef 20mg bid. Recommend salt tabs and compression stocking. Consider C ardiology for further management of her orthostatic hypotension. Every 4 hours neuro checks PT and OT are consulted GI team is consulted for dysphagia I feel the patient is on polypharmacy. We'll defer modification of the medication to the primary team Regarding her dysphagia: They stated outpatient work-up per nurse and GI recommended ENT since patient has throat pain. We'll defer the electrolyte imbalance and the rest of the medical management the primary team. Recommend for patient to follow-up with neurologist as outpatient within 1-2 weeks.. (Upon speaking with patient she stated she was seeing by different neurologist in past. Latest neurologist is at [facility] but has not followed up because of transportation. She use to follow-up with Dr. Daniel but stopped since did not like his approach. She stated Dr. Beth refuses to take her insurance. She refuses to follow-up with any local neurologist. She is refusing to see neurologist in [place] region). The plan is discussed with her nurse. There is no further neurological work-up. Austin Aly M.D. Neuro-Hospitalist Time with Patient: Less than 30
[2021-12-12 19:21] VITALS: RESP 18
[2021-12-12 21:05] LABS: Glucose,Whole Blood 301 mg/dL (75-99)
[2021-12-12] MEDS: RIVAROXABAN 20 MG TAB PO SCH (21:10)
[2021-12-13 07:06] LABS: Glucose,Whole Blood 128 mg/dL (75-99)
[2021-12-13] MEDS: INSULIN ASPART (NovoLOG) 100 UNIT/ML VIAL SQ SCH ×2 (07:09→11:53)
[2021-12-13] MEDS: GABAPENTIN 300 MG CAP PO SCH (07:21)
[2021-12-13] MEDS: FLUoxetine HCL 20 MG CAP PO SCH (07:21)
[2021-12-13] MEDS: POTASSIUM CHLORIDE ER 20 MEQ TAB.ER PO SCH (07:22)
[2021-12-13] MEDS: SENNOSIDES 8.6 MG TAB PO SCH (07:22)
[2021-12-13] MEDS: ATORVASTATIN 40 MG TAB PO SCH (07:22)
[2021-12-13] MEDS: oxyCODONE-APAP 7.5-325MG 1 EACH TAB PO SCH (07:23)
[2021-12-13] MEDS: clonazePAM 1 MG TAB PO SCH (07:23)
[2021-12-13] MEDS: SPIRONOLACTONE 25 MG TAB PO SCH (07:24)
[2021-12-13] MEDS: PANTOPRAZOLE 40 MG TABLET PO SCH (07:24)
[2021-12-13] MEDS: FUROSEMIDE 40 MG TAB PO SCH (07:24)
[2021-12-13] MEDS: INSULIN DETEMIR (LEVEMIR) 100 UNIT/ML SYR SQ SCH (07:25)
[2021-12-13] MEDS: METOCLOPRAMIDE 10 MG TAB PO SCH ×2 (07:25→11:53)
[2021-12-13] MEDS: polyethylene glycoL 3350 17 GM POWD.PACK PO SCH (07:25)
[2021-12-13] MEDS: HYDROCORTISONE 20 MG TAB PO SCH (07:26)
[2021-12-13] MEDS: ACYCLOVIR 200 MG CAP PO SCH (07:26)
[2021-12-13] MEDS: METOPROLOL SUCCINATE (ER) 100 MG TAB.ER.24H PO SCH (07:27)
[2021-12-13] MEDS: levETIRAcetam 500 MG TAB PO SCH (07:27)
[2021-12-13] MEDS: methIMAzole 5 MG TAB PO SCH (07:28)
[2021-12-13] MEDS: MIDODRINE 5 MG TAB PO SCH (07:36)
[2021-12-13 08:10] VITALS: BP 124/81; PULSE 60; TEMP 98.1
--- NOTE | 2021-12-13 10:08 | PN ---
PROGRESS NOTE This is a 76-year-old white female with generalized weakness. She feels much better. She has been ambulating up to the floor and to the without dizziness. Wait for clearance from Neurology, but suspect she will be able to go home or to a rehab center tomorrow, depending on placement. Her legs are still weak with ambulation. Dizziness is much improved with increased treatment for hyperthyroidism. Cardiovascular S1, S2. Lungs clear. GI soft. Hematology negative Homans. ASSESSMENT: 1. Dizziness. 2. Treatment for acute hyperthyroidism. 3. Chronic obstructive pulmonary disease. 4. Hyp thyroidism. 5. Neuropathy. 6. Degenerative disc disease. Prognosis guarded. Possibly discharge home or to a skilled nursing in the morning. Continue with PT, OT. MMQUIQUEL / EARLEN: [id number] /
--- NOTE | 2021-12-13 10:23 | DS ---
DISCHARGE SUMMARY DISCHARGE DIAGNOSIS: 1. Dizziness. 2. Gait imbalance. 3. Falling. 4. Hyperthyroidism. 5. Diabetes mellitus. 6. Hypertension. 7. Seizure history. 8. Orthostatic hypotension. 9. Gastroparesis. HOME MEDICINES: Home medicines include: 1. Tapazole 5 mg daily. 2. Levemir units daily. 3. Reglan 10 mg before meals and at bedtime. 4. 20 mg daily for atrial fibrillation. 5. Acyclovir 400 b.i.d. 6. Fluoxetine 60 daily. 7. Trulicity 1.5 mg subcutaneously on Sundays. 8. Toprol-XL 100 mg daily. 9. Crestor 20 mg daily. 10.Keppra 500 mg t.i.d. 11.Spironolactone 50 mg t.i.d. 12.Cortef 20 mg b.i.d. 13.Percocet 7.5 t.i.d. 14.Gabapentin 600 t.i.d. 15.Omeprazole 40 b.i.d. 16.K-Dur 20 mEq daily. 17.Midodrine 10 mg before meals t.i.d. 18.Klonopin 1 mg t.i.d. 19.Lasix 40 mg b.i.d. CONDITION: Stable. PROGNOSIS: Guarded. Ambulate as tolerated. Diet as tolerated. This white female came in with severe gait imbalance, dizziness, unable to walk without falling. She was treated for overactive hyperthyroidism with Tapazole. Her dizziness improved over the next 2 to 3 days, but she gait imbalance. She has been treated for multiple conditions, including degenerative disc disease, neuropathy, diabetes, orthostatic hypotension, renal insufficiency, for which she takes Cortef 20 b.i.d. She improved her walking to the bathroom and the chair. She will need some more strengthening at the retirement for leg weakness. If unable to arrange [facility] [place], she wants to go home. Please see further orders. Condition stable. Prognosis guarded. MMODL / IJN: [id number] /
[2021-12-13 11:26] LABS: Glucose,Whole Blood 159 mg/dL (75-99)
--- NOTE | 2021-12-13 17:55 | P.PN ---
Subjective Progress Note Date: 12/13/21 Principal diagnosis: Chest pain/mid sternal tenderness due to multifactorial processes including musculoskeletal pain due to nausea vomiting versus costochondritis versus fracture versus fibromyalgia COPD exacerbation, acute Chronic atrial fibrillation Hypertension hypertensive cardiovascular disease Diabetes mellitus GERD Dyslipidemia History of pulmonary embolism Seizure disorder Sleep disorder breathing and sleep apnea 12/13/2021, patient seen eval examined during the rounds labs reviewed medications reviewed remains on 4 L oxygen, nausea and vomiting has improved pain in the sternal area minimal now, tolerating by mouth well, shortness of breath stable, denies any cough or phlegm production, care plan discussed with the staff at length 12/12/2021, patient seen eval reexamined denies nausea improved not throwing up saliva, sternal pain has improved breathing is stable and able to get to the bathroom without any severe respiratory distress will DC Solu-Medrol continue Cortef as taken before continue other home medication with the addition of Reglan which appears to be helping 12/11/2021, patient is resting comfortably, remains on 4 L oxygen, pain is slightly better but still there with achy reproducible nature, nausea stable, in next 24-48 hours we'll DC meantime prednisone and continue Cortef as she is taking before, patient appears to be tolerating Reglan fairly well 12/10/2021, patient seen eval examined during the rounds labs reviewed med ications reviewed care plan discussed, respiratory status stable, denies any chest pain some ache is still present sternum, sugars are running on the higher side will decrease the steroids to every 12, patient is throwing up saliva will put patient on Reglan patient also has constipation, will put patient on Senokot 12/09/2021, patient seen eval reexamined GI recommendation noted and reviewed, patient still having pain in the sternum severity however has improved, sugars are running on the higher side, denies any cough or sputum production respiratory status stable, nausea ongoing is present, computed tomography scan of the chest reviewed no acute fracture identified Patient is a 76-year-old female came into the hospital with multiple symptoms and complained using night sweats and chills fever vomiting and nausea going on for 2-3 week in addition patient was having headaches intermittent shortness of breath the symptoms were paroxysmal episode ache, patient has been on direct oral anticoagulants due to history of prior pulmonary embolism patient has a decreased appetite, denies any cough or sputum production, denies any dizziness lightheadedness or loss of consciousness or hemiparesis, today patient started having tenderness on the sternum and pleuritic pain on taking deep inspiration. Her CBC was within normal limit, covert as well as influenza A and B are negative, d-dimer is 0.28 magnesium is 1.5 troponin less than 0.012, chest x-ray COPD-like changes no acute processes identified, ECG ectopic atrial rhythm with moderate intraventricular conduction delay Objective - Vital Signs Vital signs: Vital Signs Temp 98.1 F 12/13/21 08:00 Pulse 60 12/13/21 08:00 Resp 18 12/13/21 08:00 BP 124/81 12/13/21 08:00 Pulse Ox 99 12/13/21 08:00 Intake & Output 12/12/21 12/13/21 12/13/21 18:59 06:59 18:59 Intake Total 800 380 Balance 800 380 Weight 88.904 kg Intake: Oral 800 380 Other: # Voids 2 # Bowel Movements 2 - Exam - Constitutional General appearance: average body habitus, disheveled - EENT Eyes: EOMI, PERRLA ENT: normal oropharynx Ears: bilateral: normal - Neck Neck: normal ROM Carotids: bilateral: upstroke normal Thyroid: bilateral: normal size - Respiratory On palpation of the sternum mid part mildly tender Respiratory: bilateral: diminished, negative: dullness, rales, rhonchi - Gastrointestinal General gastrointestinal: normal bowel sounds - Integumentary Integumentary: normal turgor - Neurologic Neurologic: CNII-XII intact - Musculoskeletal Musculoskeletal: gait normal, generalized weakness, strength equal bilaterally - Psychiatric Psychiatric: A&O x's 3, appropriate affect, intact judgment & insight - Labs CBC & Chem 7: 12/11/21 05:41 12/11/21 05:41 Labs: Abnormal Lab Results - Last 24 Hours (Table) 12/12/21 12/13/21 12/13/21 Range/Units 21:03 07:03 11:23 POC Glucose (mg/dL) 301 H 128 H 159 H (75-99) mg/dL Assessment and Plan Assessment: Chest pain/mid sternal tenderness due to multifactorial processes including musculoskeletal pain due to nausea vomiting versus costochondritis versus fibromyalgia continued to improve progressively COPD exacerbation, acute, improving Chronic atrial fibrillation Hypertension hypertensive cardiovascular disease Diabetes mellitus GERD Dyslipidemia History of pulmonary embolism Seizure disorder Sleep disorder breathing and sleep apnea Plan: Agree with continuing home medications Pain control Bronchodilators IV steroids, we'll start titrating it down, hopefully will DC the next 24-48 hours continue Cortef as she was taking before Anti-emetics Supplemental oxygen Reviewed computed tomography scan of the chest without contrast, no acute fracture identified Time with Patient: Greater than 30
--- NOTE | 2021-12-17 13:25 | PN ---
PROGRESS NOTE ADDENDUM: Chronic diastolic heart failure. MMODL / IJN: [id number] /
== END 2021-12-13 13:08 | DRG 312 ==
LOC: EC 10:49 → 4SSUR 16:32 → OBSVTOIN 12-09 14:20
PROVIDERS: ADMIT Family Medicine; ATTEND Family Medicine
DX: I95.1 Orthostatic hypotension (principal); I48.20 Chronic atrial fibrillation, unspecified; I48.92 Unspecified atrial flutter; J44.1 Chronic obstructive pulmonary disease with (acute) exacerbation; I50.32 Chronic diastolic (congestive) heart failure; E05.90 Thyrotoxicosis, unspecified without thyrotoxic crisis or storm; E11.41 Type 2 diabetes mellitus with diabetic mononeuropathy; E11.43 Type 2 diabetes mellitus with diabetic autonomic (poly)neuropathy; E11.65 Type 2 diabetes mellitus with hyperglycemia; E78.5 Hyperlipidemia, unspecified; E83.42 Hypomagnesemia; E86.0 Dehydration; F41.9 Anxiety disorder, unspecified; G20 Parkinson's disease; I50.9 Heart failure, unspecified; G40.909 Epilepsy, unspecified, not intractable, without status epilepticus; G47.33 Obstructive sleep apnea (adult) (pediatric); I11.0 Hypertensive heart disease with heart failure; Z86.711 Personal history of pulmonary embolism; Z85.51 Personal history of malignant neoplasm of bladder; Z53.29 Procedure and treatment not carried out because of patient's decision for other reasons; F32.A Depression, unspecified; Z28.311 Partially vaccinated for COVID-19; E86.9 Volume depletion, unspecified; R13.10 Dysphagia, unspecified; R11.2 Nausea with vomiting, unspecified; M79.7 Fibromyalgia; K21.9 Gastro-esophageal reflux disease without esophagitis; K31.84 Gastroparesis; K59.00 Constipation, unspecified; M17.10 Unilateral primary osteoarthritis, unspecified knee; M47.816 Spondylosis without myelopathy or radiculopathy, lumbar region; M81.0 Age-related osteoporosis without current pathological fracture; L40.9 Psoriasis, unspecified; G89.4 Chronic pain syndrome; M47.812 Spondylosis without myelopathy or radiculopathy, cervical region; R51.9 Headache, unspecified; Z91.81 History of falling; Z79.01 Long term (current) use of anticoagulants; Z79.4 Long term (current) use of insulin; Z79.899 Other long term (current) drug therapy; Z82.49 Family history of ischemic heart disease and other diseases of the circulatory system; Z82.62 Family history of osteoporosis; Z83.6 Family history of other diseases of the respiratory system; Z87.891 Personal history of nicotine dependence; Z87.440 Personal history of urinary (tract) infections; Z95.0 Presence of cardiac pacemaker; Z96.611 Presence of right artificial shoulder joint; Z90.81 Acquired absence of spleen; Z98.890 Other specified postprocedural states; Z88.8 Allergy status to other drugs, medicaments and biological substances; Z91.013 Allergy to seafood; Z86.19 Personal history of other infectious and parasitic diseases
CPT/HCPCS: 36415; 70450; 71046; 71250; 74019; 74230; 80048; 80053; 83605; 83735; 83880; 84100; 84439; 84443; 84484; 85025; 85379; 85610; 85730; 87502; 87635; 93005; 94760; 96365; 96366; 96375; 96376; 99285

== ENCOUNTER 2022-07-06 12:08 | Inpatient (IN) | payer MEDICARE, OTHER ==
[2022-07-06] MEDS ORDERED: methylPREDNISolone SOD SUCCI 40 MG/ML 1 ML VIAL IV STA (13:04)
[2022-07-06] MEDS ORDERED: IPRATROPIUM-ALBUTEROL 3 ML NEB INHALATION STA (13:04)
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
[2022-07-06] MEDS ORDERED: SODIUM CHLORIDE 0.9% 500 ML 500 ML IV ONE (13:10)
[2022-07-06 13:18] LABS: Basophils % (A) 0 %; Eosinophils # (A) 0.1 k/uL (0-0.7); Eosinophils % (A) 1 %; HCT 36.2 % (34.0-46.0); HGB 11.6 gm/dL (11.4-16.0); Hypochromasia Moderate; Lymphocytes # (A) 2.2 k/uL (1.0-4.8); Lymphocytes % (A) 26 %; MCH 29.3 pg (25.0-35.0); MCV 91.8 fL (80.0-100.0); Monocytes # (A) 0.6 k/uL (0-1.0); Monocytes % (A) 7 %; Neutrophils # (A) 5.2 k/uL (1.3-7.7); Neutrophils % (A) 63 %; Platelet Count 392 k/uL (150-450); RBC 3.94 m/uL (3.80-5.40); RDW 13.6 % (11.5-15.5); WBC 8.2 k/uL (3.8-10.6)
[2022-07-06 13:30] LABS: INR 1.1 (<1.2); Partial Thromboplastin Time 25.1 sec (22.0-30.0); Prothrombin Time 11.6 sec (9.0-12.0)
[2022-07-06 13:42] LABS: Albumin 3.8 g/dL (3.5-5.0); Potassium 4.8 mmol/L (3.5-5.1)
[2022-07-06 13:43] LABS: Calcium 8.7 mg/dL (8.4-10.2); Total Bilirubin 0.5 mg/dL (0.2-1.3)
--- NOTE | 2022-07-06 14:53 | CT ---
EXAMINATION TYPE: CT brain cspine wo con DATE OF EXAM: 07/06/2022 COMPARISON: Brain 12/09/2021 HISTORY: 77-year-old female Weakness, falls CT DLP: 1687.8 mGycm Automated exposure control for dose reduction was used. Technique: Examination of the head was done in axial plane without intravenous contrast. Coronal and sagittal reconstructions performed. CT of the cervical spine was obtained in axial plane without intravenous injection of contrast mater ial. Coronal and sagittal reformatted images were obtained from the axial views for evaluation of f ractures, spinal alignment and canal. FINDINGS: Head: There is no evidence of acute intracranial hemorrhage, acute ischemic changes, mass, mass-effect, or extra-axial fluid collection. There is no effacement of cerebral sulci or basal subarachnoid cister ns. There is no hydrocephalus. There is no midline shift. Eagle-white matter distinction is preserv ed. Patchy subinsular white matter hypodensities on both sides suggesting changes of chronic small vessel ischemic disease. Partially empty sella noted. Prior Fess. Scattered mild mucosal thickening maxillary and ethmoid sinuses. Mastoid air cells are we ll pneumatized. Orbits and globes are intact. Cervical spine: Possible 2.8 cm right upper thyroid lobe nodule (coronal image 23). Patient's 10/09/2021 ultrasound in dicates a 2.4 cm nodule in this location. No craniocervical junction abnormality, predental space widening, or prevertebral soft tissue swellin g. Moderate to advanced disc/endplate degenerative changes but she made to lower cervical spine and mult ilevel facet and uncovertebral joint arthropathy. Reversal of the normal cervical lordosis but with preserved alignment. Disc osteophyte complexes contribute to moderate narrowing of the spinal canal at C4-C5 and C5-C6. No acute fracture of the cervical spine. Variable moderate bilateral neuroforaminal stenoses throughout. Some left-sided pacer leads are partially visualized. Sagittal and coronal reformatted images confirm above findings. COMBINED IMPRESSION: 1. Mild burden of chronic small vessel ischemic disease. No acute intracranial abnormality seen. 2. Acute fracture or malalignment of the cervical spine. Moderate to advanced multilevel spondylotic changes. 3. A 2.8 cm right thyroid lobe nodule may be slightly increased in size from 10/09/2021. Recommend fol low-up thyroid ultrasound to determine the need for FNA.
--- NOTE | 2022-07-06 14:54 | CT ---
EXAMINATION TYPE: CT abdomen pelvis w con CT DLP: 4827 mGycm, Automated exposure control for dose reduction was used. DATE OF EXAM: 07/06/2022 2:40 PM COMPARISON: CT chest 12/08/2021 CLINICAL INDICATION:Female, 77 years old with history of lower abd pain, constipation; Weakness, fall , constipation, lower abd pain TECHNIQUE: Standard CT of the abdomen and pelvis following the administration of 100 cc of Isovue 3 00 IV contrast material. Coronal and sagittal reformats were performed. FINDINGS: LOWER CHEST: Bibasilar linear atelectasis. Partial visualization of cardiac pacemaking leads. Mildly enlarged heart. No pericardial effusion. ABDOMEN LIVER: Diffusely hypoattenuating parenchyma. GALLBLADDER AND BILE DUCTS: Unremarkable. PANCREAS: Unremarkable. SPLEEN: Nodular contour of the spleen. ADRENAL GLANDS: Unremarkable. KIDNEYS AND URETERS: No evidence of hydronephrosis or renal calculus. Left superior pole cyst measuri ng up to 1.3 cm. The kidneys enhance symmetrically. Contrast is demonstrated within both collecting s ystems on the delayed phase. PELVIS BLADDER: Unremarkable REPRODUCTIVE: Unremarkable. ABDOMEN & PELVIS STOMACH AND BOWEL: Stomach and duodenum are unremarkable. No focal wall thickening. Moderate amount o f stool is present throughout the colon. The appendix is within normal limits. No evidence of bowel o bstruction. PERITONEUM: No evidence of pneumoperitoneum or free fluid. There are 2 scattered nonspecific omental nodules identified measuring up to 7 mm (series 201, measures 68 and 52). VASCULATURE: Mild atherosclerotic calcifications are present throughout the abdominal aorta and its b ranches. No evidence of aortic aneurysm. MUSCULOSKELETAL: No acute osseous abnormalities. Please refer to dedicated CT lumbar spine of the for findings. LYMPH NODES: No gross evidence for lymphadenopathy. SOFT TISSUE/ABDOMINAL WALL: Diastases recti. Small fat filled umbilical hernia. IMPRESSION: 1. No acute intra-abdominal pelvic process. 2. Moderate colonic stool burden.
--- NOTE | 2022-07-06 15:05 | CT ---
EXAMINATION TYPE: CT lumbar spine w con CT DLP: Included in abd/pel mGycm, Automated exposure control for dose reduction was used. DATE OF EXAM: 07/06/2022 2:39 PM COMPARISON: CT abdomen and pelvis 07/06/2022, CT lumbar spine 01/24/2017.. CLINICAL INDICATION:Female, 77 years old with history of fall, pain; PHH, Fall, weakness and back lakshmi n TECHNIQUE: Multiple axial images were obtained from the midportion of T11 through the sacroiliac dolores nts. Soft tissue and bone windows in coronal and sagittal planes were obtained and reviewed. FINDINGS: Alignment: There are 5 lumbar type vertebral bodies. Levocurvature of the lumbar spine with apex at L 2-L3. Grade 1 anterolisthesis of L4-L5. Bone: No evidence of fracture is identified. Multilevel degenerative disc disease with disc space na rrowing, endplate sclerosis, vacuum disc disease, and anterior osteophytosis. Multilevel facet arthro mikala. Discs: T12-L1: No spinal canal or neural foraminal stenosis is identified. L1-L2: Posterior disc osteophyte complex with minimal effacement of the anterior thecal sac. The bila teral neuroforamina are patent. L2-L3: Posterior disc osteophyte complex with mild effacement of the intrathecal sac. Mild right neur oforaminal stenosis. The left neural foramen is patent. L3-L4: Posterior disc osteophyte complex with minimal effacement of the anterior thecal sac. No neura l foraminal stenosis. L4-L5: Grade 1 anterolisthesis of L4 on L5 with uncovering of the disc. Mild broad-based disc bulge with minimal effacement of the anterior thecal sac. Mild left neuroforaminal stenosis. The right neur al foramen is patent. L5-S1: Posterior disc osteophyte complex with mild effacement of anterior thecal sac. Mild bilateral neural foraminal narrowing. Other: None IMPRESSION: 1. No evidence of fracture of the lumbar spine. 2. Moderate multilevel degenerative disc disease as described above.
--- NOTE | 2022-07-06 15:27 | XR ---
EXAMINATION TYPE: XR chest 2V DATE OF EXAM: 07/06/2022 2:43 PM COMPARISON: Chest radiographs from 12/07/2021 TECHNIQUE: XR chest 2V Frontal and lateral views of the chest. CLINICAL INDICATION:Female, 77 years old with history of Weakness; FINDINGS: Lungs/Pleura: There is no evidence of pleural effusion, focal consolidation, or pneumothorax. Pulmonary vascularity: Unremarkable. Heart/mediastinum: Cardiomediastinal silhouette is enlarged and stable. Two lead cardiac conduction d evice overlying the left hemithorax with lead tips projecting over the right ventricle and right atri um. Musculoskeletal: No acute osseous pathology. Fixation hardware in the proximal right humerus IMPRESSION: 1. No acute cardiopulmonary disease/process. 2. Cardiomegaly without evidence for acute heart failure.
[2022-07-06 15:28] LABS: Appearance,Urine Clear (Clear); Bilirubin,Urine Negative (Negative); Blood,Urine Negative (Negative); Color,Urine Light Yellow; Glucose,Urine (UA) Negative (Negative); Ketones,Urine Negative (Negative); Leukocyte Esterase,Urine Negative (Negative); Nitrite,Urine Negative (Negative); Protein,Urine Negative (Negative); Urobilinogen,Urine <2.0 mg/dL (<2.0)
[2022-07-06 15:41] LABS: Specific Gravity,Urine >1.050 (1.001-1.035)
[2022-07-06] MEDS ORDERED: NALOXONE 0.4 MG/ML 1 ML VIAL IV PRN (15:58)
[2022-07-06] MEDS ORDERED: metOLazone 2.5 MG TAB PO SCH (16:00)
[2022-07-06] MEDS ORDERED: FUROSEMIDE 40 MG TAB PO SCH (16:00)
[2022-07-06] MEDS: KETOROLAC 15 MG/ML 1 ML VIAL IVP SCH (17:00)
[2022-07-06] MEDS: GABAPENTIN 300 MG CAP PO SCH ×2 (17:00→23:30)
[2022-07-06] MEDS: SPIRONOLACTONE 25 MG TAB PO SCH ×2 (17:00→23:30)
[2022-07-06] MEDS: clonazePAM 1 MG TAB PO SCH ×2 (17:00→23:29)
[2022-07-06] MEDS: MIDODRINE 5 MG TAB PO SCH (19:14)
[2022-07-06] MEDS: CARBIDOPA-LEVODOPA 10-100 MG 1 EACH TAB PO SCH ×2 (19:14→23:31)
[2022-07-06] MEDS: SUCRALFATE 1 GM TAB PO SCH (19:14)
[2022-07-06] MEDS: IPRATROPIUM-ALBUTEROL 3 ML NEB INHALATION SCH ×2 (19:52→20:06)
[2022-07-06] MEDS ORDERED: HEPARIN SODIUM,PORCINE/PF 5,000 UNIT/0.5 ML SYRINGE SQ SCH (21:00)
[2022-07-06 21:42] LABS: Glucose,Whole Blood 235 mg/dL (70-110)
[2022-07-06] MEDS ORDERED: DEXTROSE 50% SYRINGE 50 ML IVP PRN ×2 (22:32)
[2022-07-06] MEDS: ATORVASTATIN 40 MG TAB PO SCH (23:29)
[2022-07-06] MEDS: SODIUM CHLORIDE 0.9% 1,000 ML IV SCH (23:29)
[2022-07-06] MEDS: methylPREDNISolone SOD SUCCI 40 MG/ML 1 ML VIAL IV SCH (23:30)
[2022-07-06] MEDS: oxyCODONE-APAP 7.5-325MG 1 EACH TAB PO SCH (23:31)
[2022-07-06] MEDS: levETIRAcetam 500 MG TAB PO SCH (23:32)
[2022-07-06] MEDS: FLECAINIDE 50 MG TAB PO SCH (23:32)
[2022-07-07 00:01] LABS: Glucose,Whole Blood 168 mg/dL (70-110)
[2022-07-07] MEDS: HYDROCORTISONE 20 MG TAB PO SCH ×3 (00:10→21:59)
[2022-07-07] MEDS: INSULIN ASPART (NovoLOG) 100 UNIT/ML VIAL SQ SCH ×5 (00:10→22:01)
[2022-07-07] MEDS: SUCRALFATE 1 GM TAB PO SCH ×3 (00:10→11:45)
[2022-07-07] MEDS: KETOROLAC 15 MG/ML 1 ML VIAL IVP SCH ×4 (00:11→18:27)
[2022-07-07] MEDS: IPRATROPIUM-ALBUTEROL 3 ML NEB INHALATION SCH ×6 (00:17→21:30)
[2022-07-07 06:16] LABS: Glucose,Whole Blood 174 mg/dL (70-110)
[2022-07-07] MEDS: MIDODRINE 5 MG TAB PO SCH ×3 (06:44→17:06)
[2022-07-07] MEDS: SODIUM CHLORIDE 0.9% 1,000 ML IV SCH ×2 (06:47→22:03)
[2022-07-07] MEDS ORDERED: INSULIN ASPART (NovoLOG) 100 UNIT/ML VIAL SQ SCH (07:30)
--- NOTE | 2022-07-07 08:30 | HP ---
HISTORY AND PHYSICAL HISTORY OF PRESENT ILLNESS: A 77-year-old white female, who had multiple falls at home, history of seizure disorder, SVT, 4 L oxygen, diabetes, 3 weeks of worsening weakness, intermittent shortness of breath. She wears 4 L oxygen at home, nausea, vomiting, nonbilious. She falls at home. Dizziness when she stands up. History of hyperthyroidism also. Admitted for generalized weakness and was exposed to RSV3, possibly orthostatic changes. We would better get neurology consult as she has a history. She feels she wants a Parkinson's workup. HOME MEDICATIONS: 1. Xarelto for atrial fibrillation 20 mg daily. 2. Zovirax 400 mg daily. 3. Prozac 20 mg daily. 4. Trulicity 1.5 weekly. 5. Metoprolol-XL 100 mg. 6. Spironolactone 50 mg t.i.d. 7. Cortef 20 b.i.d. 8. Lasix 40 daily. 9. Lipitor 40 daily. 10.Sinemet t.i.d. 11. . 12.Keppra 1000 b.i.d. 13.Zaroxolyn 2.5 daily. 14.Methimazole 10 mg daily. ALLERGIES: See old chart. REVIEW OF SYSTEMS: Otherwise negative, see above. PHYSICAL EXAMINATION: GENERAL: She looks like she is in no acute distress. HEENT: Normocephalic, atraumatic. CARDIOVASCULAR: S1, S2. HEMATOLOGY: 2 to 3+ edema. NEUROLOGIC: Cranial nerves are intact. Mild tremor. LUNGS: Mild wheeze x4. INTEGUMENT: Decreased skin turgor. PHYSICAL EXAMINATION: VITAL SIGNS: Temperature 97.7, blood pressure 115/68, O2 of 98%, pulse 62. Possible infection, infection to be ruled out. She will get it checked out for Parkinson's per her recommendations by Neurology. Small fluid boluses, given IV steroids for COPD exacerbation. Check orthostatic changes. EKG shows no ischemia. Chest x-ray shows no infiltrate. negative. Neck shows no fracture. She has 2.8 cm right thyroid lobule. CT-spine, no fracture. Urinalysis negative. RSV fluid negative. Lactic acidosis 2.5. We will admit her. Please see further orders. Prognosis guarded. MMODL / IJN: [id number] /
[2022-07-07] MEDS: CLOBAZAM 10 MG PO SCH (08:41)
[2022-07-07] MEDS: CARBIDOPA-LEVODOPA 10-100 MG 1 EACH TAB PO SCH ×3 (08:42→21:59)
[2022-07-07] MEDS: levETIRAcetam 500 MG TAB PO SCH ×2 (08:42→23:16)
[2022-07-07] MEDS: LOSARTAN 25 MG TAB PO SCH (08:42)
[2022-07-07] MEDS: FLUoxetine HCL 20 MG CAP PO SCH (08:42)
[2022-07-07] MEDS: GABAPENTIN 300 MG CAP PO SCH ×3 (08:42→22:02)
[2022-07-07] MEDS: oxyCODONE-APAP 7.5-325MG 1 EACH TAB PO SCH ×2 (08:42→15:51)
[2022-07-07] MEDS: FLECAINIDE 50 MG TAB PO SCH (08:42)
[2022-07-07] MEDS: clonazePAM 1 MG TAB PO SCH ×2 (08:43→17:09)
[2022-07-07] MEDS: SPIRONOLACTONE 25 MG TAB PO SCH ×2 (08:43→15:51)
[2022-07-07] MEDS: methylPREDNISolone SOD SUCCI 40 MG/ML 1 ML VIAL IV SCH ×2 (08:53→22:00)
[2022-07-07] MEDS ORDERED: METOPROLOL SUCCINATE (ER) 100 MG TAB.ER.24H PO SCH (09:00)
[2022-07-07] MEDS: methIMAzole 5 MG TAB PO SCH (10:25)
[2022-07-07] MEDS: RIVAROXABAN 20 MG TAB PO SCH (10:25)
[2022-07-07] MEDS: ACYCLOVIR 200 MG CAP PO SCH (10:25)
[2022-07-07 10:36] LABS: Basophils # (A) 0.01 X 10*3/uL (0.00-0.10); Basophils % (A) 0.1 %; Eosinophils # (A) 0 X 10*3/uL (0.04-0.35); Eosinophils % (A) 0 %; HCT 34.8 % (37.2-46.3); HGB 10.6 g/dL (12.0-15.0); Immature Grans, Automated 0.5 %; Lymphocytes # (A) 0.94 X 10*3/uL (0.90-5.00); Lymphocytes % (A) 8.6 %; MCH 27.7 pg (27.0-32.0); MCHC 30.5 g/dL (32.0-37.0); MCV 91.1 fL (80.0-97.0); Mean Platelet Volume 10.3 fL (9.5-12.2); Monocytes # (A) 0.18 X 10*3/uL (0.20-1.00); Monocytes % (A) 1.6 %; NRBC Per 100 WBC 0 /100 WBCS (0.0-0.0); Neutrophils # (A) 9.77 X 10*3/uL (1.80-7.70); Neutrophils % (A) 89.2 %; Platelet Count 411 X 10*3/uL (140-440); RBC 3.82 X 10*6/uL (4.10-5.20); RDW 14.8 % (11.5-14.5); WBC 10.96 X 10*3/uL (4.50-10.00)
[2022-07-07 11:04] LABS: African American GFR (CKD) 63.8 (60.0-200.0); Anion Gap 10.1 mmol/L (10.00-18.00); BUN/Creat Ratio 22.1 Ratio (12.00-20.00); Blood Urea Nitrogen 22.1 mg/dL (9.0-27.0); Calcium 9.1 mg/dL (8.7-10.3); Carbon Dioxide 25.9 mmol/L (20.0-27.5); Non-African American GFR(CKD) 55.1 (60.0-200.0); Potassium 5.5 mmol/L (3.5-5.5)
[2022-07-07 11:38] LABS: Glucose,Whole Blood 165 mg/dL (70-110)
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
[2022-07-07] MEDS ORDERED: NITROGLYCERIN SL TABS 0.4 MG TAB SUBLINGUAL STA (15:16)
[2022-07-07 16:44] LABS: Glucose,Whole Blood 250 mg/dL (70-110)
[2022-07-07] MEDS: PANTOPRAZOLE 40 MG TABLET PO SCH (17:06)
[2022-07-07 19:38] LABS: Glucose,Whole Blood 201 mg/dL (70-110)
[2022-07-07] MEDS: ATORVASTATIN 40 MG TAB PO SCH (21:59)
[2022-07-07] MEDS: METOPROLOL TARTRATE 50 MG TAB PO SCH (22:00)
[2022-07-07] MEDS: oxyCODONE-APAP 5-325MG 1 EACH TAB PO PRN (22:02)
--- NOTE | 2022-07-07 23:21 | EEG ---
ELECTROENCEPHALOGRAM REPORT CLINICAL HISTORY: This is a 77-year-old woman with history of seizures, who is having repeated episodes of falls. The video EEG is obtained to evaluate for seizure epileptiform activity. RELEVANT MEDICATIONS: Keppra, gabapentin, and Klonopin. EEG TYPE: A routine 21-channel EEG is performed with video using the 10/20 electrode placement system. DESCRIPTION: Wakefulness is only obtained. During awake state, the background consists of 6.5 to 7.5 hertz activity that is well modulated, well sustained. There is no physiological sleep architecture seen. There is no focal slowing. Interictal and ictal is none. ACTIVATION PROCEDURE: Photic stimulation did not evoke a posterior driving response. There is no abnormality during the photic stimulation. Hyperventilation is not performed. CLINICAL INTERPRETATION: This is an abnormal routine EEG. The background slowing is suggestive of mild encephalopathy. There is no focal slowing, epileptiform discharge, or seizure on the EEG. Clinical correlation is recommended. LYNDA / ERNESTO: [id number] / MTDD
[2022-07-08] MEDS: IPRATROPIUM-ALBUTEROL 3 ML NEB INHALATION SCH ×7 (00:17→23:26)
[2022-07-08] MEDS: KETOROLAC 15 MG/ML 1 ML VIAL IVP SCH ×5 (01:33→23:14)
--- NOTE | 2022-07-08 02:11 | PN ---
PROGRESS NOTE SUBJECTIVE: A 77-year-old white female came in for generalized weakness. OBJECTIVE: VITAL SIGNS: Blood pressure is low 100s over 60s, pulse 68 to 70. CARDIOVASCULAR: S1, S2. HEMATOLOGY: Negative Homans. PSYCH: Fair mood and affect. ASSESSMENT: She came in for generalized weakness and falls. Neurology saw her for Parkinson's workup and weakness. She has electrolyte imbalance, orthostatic hypotension. Wait for Neurology recommendations. Ammonia level is 21. Lactic acid was elevated, now is normal. CT of the head is negative. Maybe cut back on some of her medicines due to orthostatic hypotension. She has hyperthyroidism. She has elevated thyroid nodule. Moderate degenerative disk disease. Prognosis is guarded. Wait for Neurology recommendation, PT, OT. Cut down on some of the medications. Prognosis is guarded. MMODL / IJN: [id number] /
[2022-07-08 05:52] LABS: Glucose,Whole Blood 190 mg/dL (70-110)
[2022-07-08] MEDS: INSULIN ASPART (NovoLOG) 100 UNIT/ML VIAL SQ SCH ×4 (06:39→20:11)
[2022-07-08] MEDS: CLOBAZAM 10 MG PO SCH (07:38)
[2022-07-08] MEDS: RIVAROXABAN 20 MG TAB PO SCH (07:56)
[2022-07-08] MEDS: GABAPENTIN 300 MG CAP PO SCH ×3 (07:56→20:13)
[2022-07-08] MEDS: MIDODRINE 5 MG TAB PO SCH ×4 (07:56→17:43)
[2022-07-08] MEDS: METOPROLOL TARTRATE 50 MG TAB PO SCH ×2 (07:56→20:12)
[2022-07-08] MEDS: ACYCLOVIR 200 MG CAP PO SCH (07:56)
[2022-07-08] MEDS: LOSARTAN 25 MG TAB PO SCH (07:56)
[2022-07-08] MEDS: levETIRAcetam 500 MG TAB PO SCH ×2 (07:56→20:12)
[2022-07-08] MEDS: CARBIDOPA-LEVODOPA 10-100 MG 1 EACH TAB PO SCH ×3 (07:56→20:12)
[2022-07-08] MEDS: HYDROCORTISONE 20 MG TAB PO SCH ×2 (07:57→20:11)
[2022-07-08] MEDS: FLUoxetine HCL 20 MG CAP PO SCH (07:57)
[2022-07-08] MEDS: methIMAzole 5 MG TAB PO SCH (07:57)
[2022-07-08] MEDS: PANTOPRAZOLE 40 MG TABLET PO SCH ×2 (07:57→17:42)
[2022-07-08] MEDS: oxyCODONE-APAP 5-325MG 1 EACH TAB PO PRN ×3 (09:16→21:13)
[2022-07-08 09:49] LABS: Basophils # (A) 0.01 X 10*3/uL (0.00-0.10); Basophils % (A) 0.1 %; Eosinophils # (A) 0.02 X 10*3/uL (0.04-0.35); Eosinophils % (A) 0.2 %; HCT 34.1 % (37.2-46.3); HGB 10.3 g/dL (12.0-15.0); Immature Grans, Automated 0.9 %; Lymphocytes # (A) 0.68 X 10*3/uL (0.90-5.00); Lymphocytes % (A) 5.4 %; MCH 27.4 pg (27.0-32.0); MCHC 30.2 g/dL (32.0-37.0); MCV 90.7 fL (80.0-97.0); Mean Platelet Volume 10.6 fL (9.5-12.2); NRBC Per 100 WBC 0 /100 WBCS (0.0-0.0); Neutrophils # (A) 11.28 X 10*3/uL (1.80-7.70); Neutrophils % (A) 89.4 %; Platelet Count 405 X 10*3/uL (140-440); RBC 3.76 X 10*6/uL (4.10-5.20); RDW 14.9 % (11.5-14.5)
[2022-07-08] MEDS: methylPREDNISolone SOD SUCCI 40 MG/ML 1 ML VIAL IV SCH ×2 (10:06→20:12)
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
[2022-07-08 10:54] LABS: African American GFR (CKD) 83.6 (60.0-200.0); Albumin 3.6 g/dL (3.8-4.9); Albumin/Globulin Ratio 1.8 (1.60-3.17); Anion Gap 10.7 mmol/L (10.00-18.00); BUN/Creat Ratio 32.75 Ratio (12.00-20.00); Blood Urea Nitrogen 26.2 mg/dL (9.0-27.0); Calcium 9.2 mg/dL (8.7-10.3); Carbon Dioxide 24.3 mmol/L (20.0-27.5); Non-African American GFR(CKD) 72.1 (60.0-200.0); Potassium 5.3 mmol/L (3.5-5.5); Total Bilirubin 0.3 mg/dL (0.30-1.20); Total Protein 5.6 g/dL (6.2-8.2)
[2022-07-08 11:36] LABS: Glucose,Whole Blood 187 mg/dL (70-110)
[2022-07-08] MEDS: SODIUM CHLORIDE 0.9% 1,000 ML IV SCH (11:57)
--- NOTE | 2022-07-08 13:08 | P.PN ---
Subjective Progress Note Date: 07/08/22 The patient is seen at bedside and feels better. Denies any new neurological issues. Objective - Vital Signs Vital signs: Vital Signs Temp 97.8 F 07/08/22 07:00 Pulse 70 07/08/22 11:27 Resp 19 07/08/22 07:50 BP 114/72 07/08/22 07:00 Pulse Ox 95 07/08/22 07:30 FiO2 Intake & Output 07/07/22 07/08/22 07/08/22 18:59 06:59 18:59 Other: Voiding Method Bedside Commode Bedside Commode # Voids 10 - Exam GENERAL: The patient is lying in bed and is not in acute distress. NEUROLOGICAL: Higher mental function: The patient is awake, alert, oriented to self, place and time. Patient is following commands. No aphasia and no neglect. Cranial nerves: The pupils are round, equal and reactive to light and accommodation. Visual bennett are full to confrontation throughout. Extraocular movement : Has mild to minimal restriction looking to right and looking up bilaterally. Facial sensation is normal to touch throughout. The facial s trength is normal throughout. Hearing is mildly decreased bilaterally to hand rub. Tongue is midline and moved [id number] without any difficulty. No dysarthria is noted. Shoulder shrug is normal bilaterally. Motor: The strength is 5 over 5 throughout. Normal tone and bulk. Cerebellum: Normal finger to nose heel to chin bilaterally. Sensation: Sensation is normal to touch throughout. Reflexes (right/left): 1+ thorughout. Plantars are mute bilaterally. Some of the workup during his hospital visit consisted of: Orthostatic vital are negative. Initial plasma like acid venous 2.5 and most recent now is a 2.0. Ammonia is a 21. TSH is 0.11 which is low but the free T4 is 0.88 which is normal Lewis virus PCR was not detected in the influenza A/B as well as RSV is nondetected CT of the head is reported as mild vertigo of chronic small vessel ischemic disease. No acute intracranial abnormality seen. CT cervical spine is reported as acute fracture or malalignment of the cervical spine. Moderate to advanced multilevel spondylitic changes. 2.8 cm right thyroid lobe nodule may be slightly increased in size from 10/09/2021. Recommend follow-up thyroid ultrasound CT lumbar is reported as no evidence of fracture of the lumbar spine. Moderate multilevel degenerative disc disease as described above. EEG: There is an abnormal routine EEG. The background slowing is suggestive of mild encephalopathy. There is no focal slowing, epileptiform discharges, or seizure on the EEG. - Labs CBC & Chem 7: 07/08/22 03:57 07/08/22 03:57 Labs: Abnormal Lab Results - Last 24 Hours (Table) 07/07/22 07/07/22 07/08/22 Range/Units 16:43 19:37 03:57 WBC 12.60 H (4.50-10.00) X 10*3/uL RBC 3.76 L (4.10-5.20) X 10*6/uL Hgb 10.3 L (12.0-15.0) g/dL Hct 34.1 L (37.2-46.3) % MCHC 30.2 L (32.0-37.0) g/dL RDW 14.9 H (11.5-14.5) % Immature Gran # 0.11 H (0.00-0.04) X 10*3/uL Neutrophils # 11.28 H (1.80-7.70) X 10*3/uL Lymphocytes # 0.68 L (0.90-5.00) X 10*3/uL Eosinophils # 0.02 L (0.04-0.35) X 10*3/uL BUN/Creatinine Ratio (12.00-20.00) Ratio Glucose (70-110) mg/dL POC Glucose (mg/dL) 250 H 201 H (70-110) mg/dL AST (13-35) U/L Alkaline Phosphatase (41-126) U/L Total Protein (6.2-8.2) g/dL Albumin (3.8-4.9) g/dL 07/08/22 07/08/22 07/08/22 Range/Units 03:57 05:50 11:35 WBC (4.50-10.00) X 10*3/uL RBC (4.10-5.20) X 10*6/uL Hgb (12.0-15.0) g/dL Hct (37.2-46.3) % MCHC (32.0-37.0) g/dL RDW (11.5-14.5) % Immature Gran # (0.00-0.04) X 10*3/uL Neutrophils # (1.80-7.70) X 10*3/uL Lymphocytes # (0.90-5.00) X 10*3/uL Eosinophils # (0.04-0.35) X 10*3/uL BUN/Creatinine Ratio 32.75 H (12.00-20.00) Ratio Glucose 196 H (70-110) mg/dL POC Glucose (mg/dL) 190 H 187 H (70-110) mg/dL AST 8 L (13-35) U/L Alkaline Phosphatase 37 L (41-126) U/L Total Protein 5.6 L (6.2-8.2) g/dL Albumin 3.6 L (3.8-4.9) g/dL Microbiology - Last 24 Hours (Table) 07/06/22 13:16 Blood Culture - Preliminary Blood No Growth after 24 hours Assessment and Plan Assessment: Recurrent falls due to multifactorial: during this visit is hypotensive and is on multiple medications that can lowers blood pressure, polypharmacy, orthostatic hypotensive, suspected Parkison's Suspected Parkinson's disease (she was told at [facility]) according to patient within last 3 months and is on Sinement Possible acute fracture or malalignment of the cervical spine on the CT History of abnormal thyroid with right thyroid lobe nodule increased in size on the most recent CT in comparison to the old one as well as a continues to have low TSH. History of Positive for orthostatic hypotension on Midodrine Diabetes mellitus Atrial fibrillation status post ablation on Xarelto Syncope status post pacemaker Reported history of seizure History of pulmonary embolism Sleep apnea Polypharmacy Plan: For the suspected acute cervical fracture on the CT, consulted orthopedic surgery team Please avoid hypotensive episodes. I feel the patient is on polypharmacy's with multiple medication that lowers the blood pressure such as pain medication, hypertension medication and sedative. Will defer management of polypharamcy to primary team. History of abnormal thyroid with right thyroid lobe nodule increased in size on the most recent CT in comparison to the old one as well as a continues to have low TSH, will defer management to primary team. 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 I highly recommend the patient to follow-up with the neurology team at [facility] for the further workup for the Parkinson that she was getting and if not she needs to follow-up with an outpatient neurologist locally Vitamin B12 and folate and Fabry 2021 were within normal limits and there is no need for a repeat PT and OT are consulted We'll defer the rest of the medical management the primary team Upon discharge, patient needs to follow-up with neurologist within 1-2 weks. Plan was discussed with the patient nurse No additional neurological work-up. Time with Patient: Less than 30
[2022-07-08 16:33] LABS: Glucose,Whole Blood 211 mg/dL (70-110)
[2022-07-08 19:34] LABS: Glucose,Whole Blood 224 mg/dL (70-110)
[2022-07-08] MEDS: ATORVASTATIN 40 MG TAB PO SCH (20:11)
--- NOTE | 2022-07-08 22:55 | CONS ---
CONSULTATION HISTORY OF PRESENT ILLNESS: This is a 77-year-old lady with history of prior falls, came in to hospital having had recurrent falls at home. Has history of SVT, seizure disorder, on home O2, diabetes. Her symptoms were in the form of worsening weakness, intermittent shortness of breath, fatigue and tiredness. We have been consulted because of an abnormal EKG that shows sinus rhythm with first-degree AV block and prolonged QT interval. At the time of my evaluation, the patient appears comfortable at rest and is free of significant symptoms. She denies any chest pain or difficulty in breathing. PAST MEDICAL HISTORY: Significant for parkinsonism, atrial fibrillation status post ablation, multiple prior falls, status post permanent pacemaker, pulmonary embolism, and sleep apnea. MEDICATIONS: As charted and I reviewed them. FAMILY HISTORY: Negative for premature coronary artery disease. SOCIAL HISTORY: Negative for current smoking, EtOH abuse, or drug abuse. REVIEW OF SYSTEMS: A review of systems is performed, pertinence are as documented. PHYSICAL EXAMINATION: GENERAL: Comfortable at rest. VITAL SIGNS: Stable. CHEST: Reveals diminished air entry at the bases. HEART: Reveals first and second heart sounds and a systolic murmur at the left lower sternal border. ABDOMEN: Soft. EXTREMITIES: Reveal mild edema. Peripheral pulses are palpable. LABORATORY DATA: Labs show a hemoglobin of 10.3, platelet count is 405, potassium is 5.3, creatinine is 0.8. EKG shows sinus rhythm with first-degree AV block and a prolonged QT interval. ASSESSMENT: 1. Recurrent falls, noncardiac in origin. 2. Paroxysmal atrial fibrillation. 3. Sick sinus syndrome, status post permanent pacemaker. PLAN: From cardiac standpoint, the patient is doing well. Continue her on her current medications. MMODL / IJN: [id number] /
[2022-07-09] MEDS: SODIUM CHLORIDE 0.9% 1,000 ML IV SCH ×3 (01:57→22:15)
[2022-07-09] MEDS: oxyCODONE-APAP 5-325MG 1 EACH TAB PO PRN ×2 (04:20→15:57)
[2022-07-09] MEDS: IPRATROPIUM-ALBUTEROL 3 ML NEB INHALATION SCH ×6 (04:55→23:51)
--- NOTE | 2022-07-09 05:37 | PN ---
PROGRESS NOTE SUBJECTIVE: The patient came in with increased confusion, dizziness, and frequent falls. Cut all her multiple medicines down including blood pressure medication, Neurontin, and pain medicines orthostatic changes, wait for Neurology workup for Parkinson's with neurologist and continue with orthostatic changes. OBJECTIVE: CARDIOVASCULAR: S1, S2. LUNGS: Scattered wheeze x4 wears 4 L oxygen. NEUROLOGIC: Mild tremor. GI: Soft. HEMATOLOGY: Negative for Homans. ASSESSMENT: 1. Orthostatic hypotension. 2. Dehydration. 3. Prerenal azotemia. 4. Parkinson's. 5. Essential tremor. PROGNOSIS: Guarded. PLAN: Multiple consults were pending. Wait for recommendations. Check for orthostatic changes as we cut down all other medicines, only medicines that may confuse her or contribute to falls. MMODL / IJN: [id number] /
[2022-07-09 06:02] LABS: Glucose,Whole Blood 183 mg/dL (70-110)
[2022-07-09] MEDS: INSULIN ASPART (NovoLOG) 100 UNIT/ML VIAL SQ SCH ×4 (06:17→20:33)
[2022-07-09] MEDS: KETOROLAC 15 MG/ML 1 ML VIAL IVP SCH ×2 (06:17→12:45)
[2022-07-09] MEDS: MIDODRINE 5 MG TAB PO SCH ×3 (09:24→17:23)
[2022-07-09] MEDS: PANTOPRAZOLE 40 MG TABLET PO SCH ×2 (09:26→17:23)
[2022-07-09] MEDS: CLOBAZAM 10 MG PO SCH (09:26)
[2022-07-09] MEDS: RIVAROXABAN 20 MG TAB PO SCH (09:26)
[2022-07-09] MEDS: methIMAzole 5 MG TAB PO SCH (09:26)
[2022-07-09] MEDS: FLUoxetine HCL 20 MG CAP PO SCH (09:26)
[2022-07-09] MEDS: levETIRAcetam 500 MG TAB PO SCH ×2 (09:26→20:33)
[2022-07-09] MEDS: METOPROLOL TARTRATE 50 MG TAB PO SCH ×2 (09:26→20:33)
[2022-07-09] MEDS: methylPREDNISolone SOD SUCCI 40 MG/ML 1 ML VIAL IV SCH ×2 (09:26→20:33)
[2022-07-09] MEDS: GABAPENTIN 300 MG CAP PO SCH ×3 (09:26→20:33)
[2022-07-09] MEDS: LOSARTAN 25 MG TAB PO SCH (09:26)
[2022-07-09] MEDS: HYDROCORTISONE 20 MG TAB PO SCH ×2 (09:26→20:33)
[2022-07-09] MEDS: ACYCLOVIR 200 MG CAP PO SCH (09:26)
[2022-07-09] MEDS: CARBIDOPA-LEVODOPA 10-100 MG 1 EACH TAB PO SCH ×3 (09:26→20:33)
[2022-07-09 09:58] LABS: Basophils # (A) 0.01 X 10*3/uL (0.00-0.10); Basophils % (A) 0.1 %; Eosinophils # (A) 0 X 10*3/uL (0.04-0.35); Eosinophils % (A) 0 %; HGB 10.7 g/dL (12.0-15.0); Immature Grans, Automated 0.9 %; Lymphocytes # (A) 1.19 X 10*3/uL (0.90-5.00); Lymphocytes % (A) 9.9 %; MCH 27.4 pg (27.0-32.0); MCHC 30.6 g/dL (32.0-37.0); MCV 89.7 fL (80.0-97.0); Mean Platelet Volume 10.3 fL (9.5-12.2); Monocytes # (A) 0.65 X 10*3/uL (0.20-1.00); Monocytes % (A) 5.4 %; NRBC Per 100 WBC 0 /100 WBCS (0.0-0.0); Neutrophils # (A) 10.04 X 10*3/uL (1.80-7.70); Neutrophils % (A) 83.7 %; Platelet Count 369 X 10*3/uL (140-440); RDW 15.1 % (11.5-14.5)
[2022-07-09 10:31] LABS: African American GFR (CKD) 81.4 (60.0-200.0); Albumin 3.6 g/dL (3.8-4.9); Albumin/Globulin Ratio 1.86 (1.60-3.17); Anion Gap 9.6 mmol/L (10.00-18.00); BUN/Creat Ratio 38.39 Ratio (12.00-20.00); Blood Urea Nitrogen 31.4 mg/dL (9.0-27.0); Carbon Dioxide 24.1 mmol/L (20.0-27.5); Non-African American GFR(CKD) 70.2 (60.0-200.0); Potassium 5.1 mmol/L (3.5-5.5); Total Bilirubin 0.4 mg/dL (0.30-1.20); Total Protein 5.6 g/dL (6.2-8.2)
--- NOTE | 2022-07-09 10:31 | P.PN ---
Subjective Progress Note Date: 07/09/22 Principal diagnosis: possible acute cervical fracture on CT Patient seen and examined this morning. Patient is resting in bed. Nursing staff states patient has been getting to bedside commode on her own with walker. She currently denies and dizzy or light-headed episodes when standing. She does have c/o a headache. Medications have been provided. Encouraged patient to continue to work with PT/OT to increase her strength and balance. Patient denies any new onset of numbness or tingling to her bilateral upper and lower extremities. She denies and fever/chills, nausea/vomiting, or chest pain. Objective - Vital Signs Vital signs: Vital Signs Temp 97.8 F 07/09/22 07:00 Pulse 70 07/09/22 08:00 Resp 17 07/09/22 07:32 BP 145/79 07/09/22 07:00 Pulse Ox 98 07/09/22 07:47 FiO2 Intake & Output 07/08/22 07/09/22 07/09/22 18:59 06:59 18:59 Intake Total 1200 Balance 1200 Intake: Intake, IV Titration 600 Amount Sodium Chloride 0.9% 1, 600 000 ml @ 75 mls/hr IV . [id number] [facility] Rx#:[id number] Oral 600 Other: Voiding Method Bedside Commode Bedside Commode Bedside Commode # Voids 3 1 - Exam Physical Examination General: The patient is awake and alert, in no acute distress Skin: Skin is warm and dry with no obvious rashes or lesions. Hairy patches absent, no dorsal skin dimples, no cafe au lait spots, and no surgical incision s. Eye: Pupils are equal, round and reactive to light, extra-ocular movements are intact; there is normal conjunctiva bilaterally. Neck: The neck is supple, there is no tenderness and limited ROM to the left. Cardiovascular: There is a regular rate and rhythm. No murmur, rub or gallop is appreciated. Respiratory: Lungs are clear to auscultation, respirations are non-labored, breath sounds are equal. Gastrointestinal: Soft, non-distended, non-tender abdomen. Back: There is no tenderness to palpation in the midline, paralumbar, parathoracic or buttocks region. There is no obvious deformity. Musculoskeletal: ROM limited secondary to pain and stiffness. Shoulder abduction 4/5, elbow flexors 4/5, wrist dorsiflexors 4/5. finger abductor 4/5, clinical services manager 4/5, hip flexor 4/5, knee flexor 4/5, ankle dorsiflexor 4/5, ankle plantarflexion 4/5 and extensor hallucis 4/5. Neurological: CN 2-12 intact. There are no obvious motor or sensory deficits. Movement and coordination equal and intact. Sensory exam to light touch intact C5-T1 and intact from L2-S1. Reflexes 2/4 in bilateral upper and lower extremities. Negative Hoffmans, babinski, and clonus signs. Psychiatric: Cooperative, appropriate mood & affect, normal judgment. - Labs CBC & Chem 7: 07/09/22 06:50 07/08/22 03:57 Labs: Abnormal Lab Results - Last 24 Hours (Table) 07/08/22 07/08/22 07/08/22 Range/Units 03:57 11:35 16:31 WBC (4.50-10.00) X 10*3/uL RBC (4.10-5.20) X 10*6/uL Hgb (12.0-15.0) g/dL Hct (37.2-46.3) % MCHC (32.0-37.0) g/dL RDW (11.5-14.5) % Immature Gran # (0.00-0.04) X 10*3/uL Neutrophils # (1.80-7.70) X 10*3/uL Eosinophils # (0.04-0.35) X 10*3/uL BUN/Creatinine Ratio 32.75 H (12.00-20.00) Ratio Glucose 196 H (70-110) mg/dL POC Glucose (mg/dL) 187 H 211 H (70-110) mg/dL AST 8 L (13-35) U/L Alkaline Phosphatase 37 L (41-126) U/L Total Protein 5.6 L (6.2-8.2) g/dL Albumin 3.6 L (3.8-4.9) g/dL 07/08/22 07/09/22 07/09/22 Range/Units 19:33 06:01 06:50 WBC 12.00 H (4.50-10.00) X 10*3/uL RBC 3.90 L (4.10-5.20) X 10*6/uL Hgb 10.7 L (12.0-15.0) g/dL Hct 35.0 L (37.2-46.3) % MCHC 30.6 L (32.0-37.0) g/dL RDW 15.1 H (11.5-14.5) % Immature Gran # 0.11 H (0.00-0.04) X 10*3/uL Neutrophils # 10.04 H (1.80-7.70) X 10*3/uL Eosinophils # 0 L (0.04-0.35) X 10*3/uL BUN/Creatinine Ratio (12.00-20.00) Ratio Glucose (70-110) mg/dL POC Glucose (mg/dL) 224 H 183 H (70-110) mg/dL AST (13-35) U/L Alkaline Phosphatase (41-126) U/L Total Protein (6.2-8.2) g/dL Albumin (3.8-4.9) g/dL Microbiology - Last 24 Hours (Table) 07/06/22 13:16 Blood Culture - Preliminary Blood No Growth after 48 hours Assessment and Plan Assessment: cervical spondylosis with stenosis lumbar spondylosis DDD Grade 1 spondylolithsis L4-L5 generalized weakness Plan: -Appreciate business risk consultant and team management. -Activity: Ambulate QID, OOB all meals, up and about. Use walker or cane if needed for stability. -Daily PT/OT, increase ambulation strength and balance. - At this time we do not recommend any emergent/urgent orthopedic surgical intervention. -Continue with pain management with oral medications -Continue with Toradol for anti-inflammatory -We will continue to follow patient this hospital stay. *I reviewed and discussed this case with my attending Dr. Mcclendon, whom has reviewed this chart and films and is in agreement with assessment and plan of care as outlined above. I have personally seen and examined the patient, performed the documentation and the assessment and plan as written. Number of minutes spent on the visit: 20m.
--- NOTE | 2022-07-09 11:21 | CA ---
Transthoracic Echo Report Name: Zari Mae Age: 77 Gender: F : 1945 Exam Date: 07/08/2022 14:12 Exam Location: [facility] Ht (in): 65 Wt (lb): 200 Ordering Physician: Ching Alva Attending/Referring Phys: Contracting Specialist Tanya Paez RDCS Procedure CPT: Indications: CP Cardiac Hx: Technical Quality: Technically difficult study Contrast 1: Lumason Total Dose (mL): 4 Contrast 2: Total Dose (mL): MEASUREMENTS (Male / Female) Normal Values 2D ECHO LV Diastolic Diameter PLAX 4.0 cm 4.2 - 5.9 / 3.9 - 5.3 cm LV Systolic Diameter PLAX 2.5 cm IVS Diastolic Thickness 1.6 cm 0.6 - 1.0 / 0.6 - 0.9 cm LVPW Diastolic Thickness 1.8 cm 0.6 - 1.0 / 0.6 - 0.9 cm LV Relative Wall Thickness 0.8 RV Internal Dim ED PLAX 2.7 cm LA Volume 72.7 cm??? 18 - 58 / 22 - 52 cm??? M-MODE Aortic Root Diameter MM 3.3 cm LA Systolic Diameter MM 5.5 cm LA Ao Ratio MM 1.7 DOPPLER LVOT Peak Velocity 87.9 cm/s LVOT Peak Gradient 3.1 mmHg MV Area PHT 4.6 cm??? Mitral E Point Velocity 94.5 cm/s Mitral A Point Velocity 119.5 cm/s Mitral E to A Ratio 0.8 MV Deceleration Time 165.8 ms MV E' Velocity 6.1 cm/s Mitral E to MV E' Ratio 15.4 FINDINGS Left Ventricle Moderately increased left ventricular wall thickness. Normal left ventricular systolic function with no obvious regional wall motion abnormalities. Left ventricular ejection fraction is estimated at 55 %. Right Ventricle Normal right ventricular size and function. Right ventricular systolic pressure within normal limits. Right Atrium Right atrium not well visualized. Left Atrium Moderately increased left atrial volume. Mitral Valve Mild mitral annular calcification. Mitral valve thickened. Mild mitral regurgitation. Aortic Valve Aortic valve not well visualized. No aortic valve stenosis or regurgitation. Tricuspid Valve Tricuspid valve not well visualized. Mild tricuspid regurgitation. Pulmonic Valve Pulmonic valve not well visualized. Pericardium No pericardial effusion. Aorta Normal size aortic root and proximal ascending aorta. CONCLUSIONS Normal LV systolic function Mild mitral regurgitation Enlarged left atrium Previewed by: Dr. Amaury Gilbert MD (Electronically Signed) Final Date: 09 July 2022 11:20
[2022-07-09 11:44] LABS: Glucose,Whole Blood 190 mg/dL (70-110)
--- NOTE | 2022-07-09 15:03 | P.PN ---
Subjective Progress Note Date: 07/09/22 Patient patient is seen today resting comfortably with no signs of acute distress. She denies increased chest pain or shortness of breath. She remained in sinus rhythm on the monitor. She is on Xarelto anticoagulation. Patient had an echocardiogram that showed a normal LV function with mild mitral reg urgitation. Patient is doing well. Will continue to follow the patient an as- needed basis. Objective - Vital Signs Vital signs: Vital Signs Temp 97.8 F 07/09/22 14:15 Pulse 66 07/09/22 14:15 Resp 18 07/09/22 14:15 BP 108/67 07/09/22 14:15 Pulse Ox 97 07/09/22 14:15 FiO2 Intake & Output 07/08/22 07/09/22 07/09/22 18:59 06:59 18:59 Intake Total 1200 Balance 1200 Intake: Intake, IV Titration 600 Amount Sodium Chloride 0.9% 1, 600 000 ml @ 75 mls/hr IV . [id number] [facility] Rx#:[id number] Oral 600 Other: Voiding Method Bedside Commode Bedside Commode Bedside Commode # Voids 3 1 # Bowel Movements 1 - Exam PHYSICAL EXAM: VITAL SIGNS: Reviewed. GENERAL: Well-developed in no acute distress. HEENT: Head is normocephalic. Pupils are equal, round. Sclerae anicteric. Mucous membranes of the mouth are moist. NECK: Supple. No JVD or thyromegaly RESPIRATORY: Respirations even and unlabored. Lungs diminished to auscultation bilaterally. CARDIO: Regular rate and rhythm. S1 and S2 heard. No murmur or gallops. EXTREMITIES: Normal range of motion. No clubbing or cyanosis. Peripheral puls es intact. Negative for bilateral lower extremity edema NEURO: Orientated to person, time, mood is appropriate - Labs CBC & Chem 7: 07/09/22 06:50 07/09/22 06:50 Labs: Abnormal Lab Results - Last 24 Hours (Table) 07/08/22 07/08/22 07/09/22 Range/Units 16:31 19:33 06:01 WBC (4.50-10.00) X 10*3/uL RBC (4.10-5.20) X 10*6/uL Hgb (12.0-15.0) g/dL Hct (37.2-46.3) % MCHC (32.0-37.0) g/dL RDW (11.5-14.5) % Immature Gran # (0.00-0.04) X 10*3/uL Neutrophils # (1.80-7.70) X 10*3/uL Eosinophils # (0.04-0.35) X 10*3/uL Anion Gap (10.00-18.00) mmol/L BUN (9.0-27.0) mg/dL BUN/Creatinine Ratio (12.00-20.00) Ratio Glucose (70-110) mg/dL POC Glucose (mg/dL) 211 H 224 H 183 H (70-110) mg/dL AST (13-35) U/L Alkaline Phosphatase (41-126) U/L Total Protein (6.2-8.2) g/dL Albumin (3.8-4.9) g/dL 07/09/22 07/09/22 07/09/22 Range/Units 06:50 06:50 11:42 WBC 12.00 H (4.50-10.00) X 10*3/uL RBC 3.90 L (4.10-5.20) X 10*6/uL Hgb 10.7 L (12.0-15.0) g/dL Hct 35.0 L (37.2-46.3) % MCHC 30.6 L (32.0-37.0) g/dL RDW 15.1 H (11.5-14.5) % Immature Gran # 0.11 H (0.00-0.04) X 10*3/uL Neutrophils # 10.04 H (1.80-7.70) X 10*3/uL Eosinophils # 0 L (0.04-0.35) X 10*3/uL Anion Gap 9.60 L (10.00-18.00) mmol/L BUN 31.4 H (9.0-27.0) mg/dL BUN/Creatinine Ratio 38.39 H (12.00-20.00) Ratio Glucose 157 H (70-110) mg/dL POC Glucose (mg/dL) 190 H (70-110) mg/dL AST 10 L (13-35) U/L Alkaline Phosphatase 36 L (41-126) U/L Total Protein 5.6 L (6.2-8.2) g/dL Albumin 3.6 L (3.8-4.9) g/dL Microbiology - Last 24 Hours (Table) 07/06/22 13:16 Blood Culture - Preliminary Blood No Growth after 48 hours Assessment and Plan Assessment: Recurrent falls, noncardiac in origin Proximal atrial fibrillation sick sinus syndrome, status post permanent pacemaker Plan: 2-D echocardiogram reviewed Continue with all current cardiac medications Will follow as an as-needed basis The above impression and plan of care have been discussed and directed by the signing physician. Ching Alva, nurse practitioner, acting as scribe for signing physician.
[2022-07-09 16:29] LABS: Glucose,Whole Blood 188 mg/dL (70-110)
[2022-07-09 20:22] LABS: Glucose,Whole Blood 340 mg/dL (70-110)
[2022-07-09] MEDS: ATORVASTATIN 40 MG TAB PO SCH (20:33)
[2022-07-10] MEDS: SODIUM CHLORIDE 0.9% 1,000 ML IV SCH ×3 (03:21→23:28)
[2022-07-10] MEDS: oxyCODONE-APAP 5-325MG 1 EACH TAB PO PRN ×3 (03:31→17:26)
[2022-07-10] MEDS: IPRATROPIUM-ALBUTEROL 3 ML NEB INHALATION SCH ×5 (03:49→20:06)
[2022-07-10 06:22] LABS: Glucose,Whole Blood 189 mg/dL (70-110)
[2022-07-10] MEDS: MIDODRINE 5 MG TAB PO SCH ×3 (06:41→17:22)
[2022-07-10] MEDS: INSULIN ASPART (NovoLOG) 100 UNIT/ML VIAL SQ SCH ×4 (06:42→21:19)
[2022-07-10] MEDS: PANTOPRAZOLE 40 MG TABLET PO SCH ×2 (06:42→17:26)
[2022-07-10] MEDS: METOPROLOL TARTRATE 50 MG TAB PO SCH ×2 (08:31→21:19)
[2022-07-10] MEDS: methylPREDNISolone SOD SUCCI 40 MG/ML 1 ML VIAL IV SCH ×2 (08:31→21:18)
[2022-07-10] MEDS: FLUoxetine HCL 20 MG CAP PO SCH (08:31)
[2022-07-10] MEDS: LOSARTAN 25 MG TAB PO SCH (08:31)
[2022-07-10] MEDS: GABAPENTIN 300 MG CAP PO SCH ×3 (08:31→21:18)
[2022-07-10] MEDS: RIVAROXABAN 20 MG TAB PO SCH (08:32)
[2022-07-10] MEDS: ACYCLOVIR 200 MG CAP PO SCH (08:33)
[2022-07-10] MEDS: CARBIDOPA-LEVODOPA 10-100 MG 1 EACH TAB PO SCH ×3 (08:33→21:18)
[2022-07-10] MEDS: CLOBAZAM 10 MG PO SCH (08:34)
[2022-07-10] MEDS: methIMAzole 5 MG TAB PO SCH (08:35)
[2022-07-10] MEDS: levETIRAcetam 500 MG TAB PO SCH ×2 (08:35→21:19)
[2022-07-10] MEDS: HYDROCORTISONE 20 MG TAB PO SCH ×2 (08:35→21:19)
--- NOTE | 2022-07-10 08:37 | P.PN ---
Subjective Progress Note Date: 07/10/22 Principal diagnosis: possible acute cervical fracture on CT Patient seen and examined this morning. Patient is resting in bed. She has been up to bedside commode independently and able to reposition herself in bed. Encouraged patient to continue to work with PT/OT to increase her strength and balance. Patient denies any new onset of numbness or tingling to her bilateral upper and lower extremities. She denies and fever/chills, nausea/vomiting, or chest pain. Objective - Vital Signs Vital signs: Vital Signs Temp 98.1 F 07/10/22 01:56 Pulse 60 07/10/22 07:59 Resp 17 07/10/22 01:56 BP 151/77 07/10/22 01:56 Pulse Ox 95 07/10/22 01:56 FiO2 Intake & Output 07/09/22 07/10/22 07/10/22 18:59 06:59 18:59 Other: Voiding Method Bedside Commode Bedside Commode # Voids 1 3 # Bowel Movements 1 - Exam Physical Examination General: The patient is awake and alert, in no acute distress Skin: Skin is warm and dry with no obvious rashes or lesions. Hairy patches absent, no dorsal skin dimples, no cafe au lait spots, and no surgical incisions. Eye: Pupils are equal, round and reactive to light, extra-ocular movements are intact; there is normal conjunctiva bilaterally. Neck: The neck is supple, there is no tenderness and limited ROM to the left. Cardiovascular: There is a regular rate and rhythm. No murmur, rub or gallop is appreciated. Respiratory: Lungs are clear to auscultation, respirations are non-labored, breath sounds are equal. Gastrointestinal: Soft, non-distended, non-tender abdomen. Back: There is no tenderness to palpation in the midline, paralumbar, parathoracic or buttocks region. There is no obvious deformity. Musculoskeletal: ROM limited secondary to pain and stiffness. Shoulder abduction 4/5, elbow flexors 4/5, wrist dorsiflexors 4/5. finger abductor 4/5, tribal delegate 4/5, hip flexor 4/5, knee flexor 4/5, ankle dorsiflexor 4/5, ankle plantarflexion 4/5 and extensor hallucis 4/5. Neurological: CN 2-12 intact. There are no obvious motor or sensory deficits. Movement and coordination equal and intact. Sensory exam to light touch intact C5-T1 and intact from L2-S1. Reflexes 2/4 in bilateral upper and lower extremities. Negative Hoffmans, babinski, and clonus signs. Psychiatric: Cooperative, appropriate mood & affect, normal judgment. - Labs CBC & Chem 7: 07/09/22 06:50 07/09/22 06:50 Labs: Abnormal Lab Results - Last 24 Hours (Table) 07/09/22 07/09/22 07/09/22 Range/Units 06:50 06:50 11:42 WBC 12.00 H (4.50-10.00) X 10*3/uL RBC 3.90 L (4.10-5.20) X 10*6/uL Hgb 10.7 L (12.0-15.0) g/dL Hct 35.0 L (37.2-46.3) % MCHC 30.6 L (32.0-37.0) g/dL RDW 15.1 H (11.5-14.5) % Immature Gran # 0.11 H (0.00-0.04) X 10*3/uL Neutrophils # 10.04 H (1.80-7.70) X 10*3/uL Eosinophils # 0 L (0.04-0.35) X 10*3/uL Anion Gap 9.60 L (10.00-18.00) mmol/L BUN 31.4 H (9.0-27.0) mg/dL BUN/Creatinine Ratio 38.39 H (12.00-20.00) Ratio Glucose 157 H (70-110) mg/dL POC Glucose (mg/dL) 190 H (70-110) mg/dL AST 10 L (13-35) U/L Alkaline Phosphatase 36 L (41-126) U/L Total Protein 5.6 L (6.2-8.2) g/dL Albumin 3.6 L (3.8-4.9) g/dL 07/09/22 07/09/22 07/10/22 Range/Units 16:25 20:21 06:20 WBC (4.50-10.00) X 10*3/uL RBC (4.10-5.20) X 10*6/uL Hgb (12.0-15.0) g/dL Hct (37.2-46.3) % MCHC (32.0-37.0) g/dL RDW (11.5-14.5) % Immature Gran # (0.00-0.04) X 10*3/uL Neutrophils # (1.80-7.70) X 10*3/uL Eosinophils # (0.04-0.35) X 10*3/uL Anion Gap (10.00-18.00) mmol/L BUN (9.0-27.0) mg/dL BUN/Creatinine Ratio (12.00-20.00) Ratio Glucose (70-110) mg/dL POC Glucose (mg/dL) 188 H 340 H 189 H (70-110) mg/dL AST (13-35) U/L Alkaline Phosphatase (41-126) U/L Total Protein (6.2-8.2) g/dL Albumin (3.8-4.9) g/dL Microbiology - Last 24 Hours (Table) 07/06/22 13:16 Blood Culture - Preliminary Blood No Growth after 72 hours Assessment and Plan Assessment: cervical spondylosis with stenosis lumbar spondylosis DDD Grade 1 spondylolithsis L4-L5 generalized weakness Plan: -Appreciate banking consultant and team management. -Activity: Ambulate QID, OOB all meals, up and about. Use walker or cane if needed for stability. -Daily PT/OT, increase ambulation strength and balance. - At this time we do not recommend any emergent/urgent orthopedic surgical intervention. -Continue with pain management with oral medications -Continue with Toradol for anti-inflammatory -Patient may follow up in office as outpatient. Orthopedics will be signing off at this time. If you have any further questions, please feel free to reach out to our service. *I reviewed and discussed this case with my attending Dr. Mcclendon, whom has reviewed this chart and films and is in agreement with assessment and plan of care as outlined above. I have personally seen and examined the patient, performed the documentation and the assessment and plan as written. Number of minutes spent on the visit: 20m.
[2022-07-10] MEDS ORDERED: PATIENT'S OWN (Dulaglutide [Trulicity] 1.5 MG/0.5 ML Pen.Injctr) SQ SCH (09:00)
--- NOTE | 2022-07-10 10:54 | PN ---
PROGRESS NOTE SUBJECTIVE: A white female, is feeling better. She is ambulating to the commode with less difficulties with dizziness. Her blood pressure is higher at 150s to 160s over 70s, temp 98.2. She is saturating 95% on 4 L. We will get PT OT involved, get ambulating. Her thyroid appears normal. She has a history of hyperthyroidism, orthostatic hypotension is being checked. Neurology consult has been observed. She continues to be a little bit better from a medical standpoint. She is having no chest pain or shortness of breath. She had an echo that showed normal LV function, mild mitral regurgitation. She has a history of COPD, possible aspiration. She may need a barium swallow. OBJECTIVE: EXTREMITIES: No cyanosis, clubbing, edema. NEURO: Alert and oriented x3. PSYCH: Fair mood and affect. Sugars in mid 200s. ASSESSMENT: Acute paroxysmal atrial fibrillation, sick sinus syndrome. Cardiology has been consulted for blood pressure control. She has been seen for cervical lumbar radiculopathy by Dr. Mcclendon with recommendations. Neurology recommendations are pending. She has recurrent falls. Cardiology says it is noncardiac in nature. Prognosis is guarded. Please see further orders. Do a barium swallow in the morning. MMODL / IJN: [id number] /
[2022-07-10 11:48] LABS: Glucose,Whole Blood 176 mg/dL (70-110)
--- NOTE | 2022-07-10 14:56 | FL ---
Modified barium swallow. HISTORY: Dysphagia. Modified barium swallow was performed with the department of speech pathology. The patient was prese nted with various consistencies of barium. There is no evidence for aspiration or penetration. Full report is to follow from the department of speech pathology. Impression: Normal study.
[2022-07-10 16:49] LABS: Glucose,Whole Blood 216 mg/dL (70-110)
[2022-07-10 20:46] LABS: Glucose,Whole Blood 199 mg/dL (70-110)
[2022-07-10] MEDS: ATORVASTATIN 40 MG TAB PO SCH (21:18)
[2022-07-11] MEDS: IPRATROPIUM-ALBUTEROL 3 ML NEB INHALATION SCH ×5 (00:07→16:30)
[2022-07-11] MEDS: oxyCODONE-APAP 5-325MG 1 EACH TAB PO PRN ×2 (01:14→14:25)
[2022-07-11 06:33] LABS: Glucose,Whole Blood 145 mg/dL (70-110)
[2022-07-11] MEDS: MIDODRINE 5 MG TAB PO SCH ×2 (06:33→12:11)
[2022-07-11] MEDS: INSULIN ASPART (NovoLOG) 100 UNIT/ML VIAL SQ SCH ×2 (06:40→11:35)
[2022-07-11] MEDS: PANTOPRAZOLE 40 MG TABLET PO SCH (06:49)
[2022-07-11 07:31] VITALS: RESP 18
[2022-07-11] MEDS: CARBIDOPA-LEVODOPA 10-100 MG 1 EACH TAB PO SCH (07:57)
[2022-07-11] MEDS: RIVAROXABAN 20 MG TAB PO SCH (07:57)
[2022-07-11] MEDS: LOSARTAN 25 MG TAB PO SCH (07:57)
[2022-07-11] MEDS: levETIRAcetam 500 MG TAB PO SCH (07:57)
[2022-07-11] MEDS: GABAPENTIN 300 MG CAP PO SCH (07:57)
[2022-07-11] MEDS: HYDROCORTISONE 20 MG TAB PO SCH (07:57)
[2022-07-11] MEDS: METOPROLOL TARTRATE 50 MG TAB PO SCH (07:57)
[2022-07-11] MEDS: ACYCLOVIR 200 MG CAP PO SCH (07:57)
[2022-07-11] MEDS: methIMAzole 5 MG TAB PO SCH (07:57)
[2022-07-11] MEDS: FLUoxetine HCL 20 MG CAP PO SCH (07:57)
[2022-07-11] MEDS: CLOBAZAM 10 MG PO SCH (08:02)
[2022-07-11] MEDS: SODIUM CHLORIDE 0.9% 1,000 ML IV SCH (09:20)
[2022-07-11] MEDS: methylPREDNISolone SOD SUCCI 40 MG/ML 1 ML VIAL IV SCH (09:20)
[2022-07-11 11:29] LABS: Glucose,Whole Blood 138 mg/dL (70-110)
[2022-07-11 14:14] VITALS: BP 109/64; PULSE 68; TEMP 98.2
--- NOTE | 2022-07-15 09:49 | CDI ---
Documentation Clarification Form Date: 07/15/2022 09:27:34 AM From: Kaya Palomares Phone: Admit Date: 07/07/2022 02:14:00 PM Patient Name: Zari Mae Visit Number: [id number] Discharge Date: 07/11/2022 04:30:00 PM ATTENTION: The Clinical Documentation Specialists (CDI) and [facility] Coding Staff appreciate your assistance in clarifying documentation. Please respond to the clarification below the line at the bottom and electronically sign. The CDI & [facility] Coding staff will review the response and follow-up if needed. Please note: Queries are made part of the Legal Health Record. If you have any questions, please contact the author of this message via ITS. Dr. James Mackay, Your patient is receiving the following: hypertension medication (Losartan 25mg) per Consult 07/07 and Progress Note 07/08/22. Please clarify what condition/diagnosis is being treated. History/Risk Factors: 77yo F, Recurrent falls, polypharmacy, CHF, orthostatic hypotensive, Parkinson's, acute fracture or malalignment of the cervical, right thyroid lobe nodule DMII, A Fib, SSS w PPM, Hx seizure, Hx PE, ALLA Clinical indicators: 07/07/22 11:07 107/69; 07/07/22 07:00 115/69; 07/07/22 02:00 96/56 Treatment: Will defer management of polypharmacy to primary team. What diagnosis are you treating with Losartan 25mg? [ ] Hypertension with CHF [ ] No additional diagnosis [ ] Other, please specify [ ] Unable to determine (Template Last Reviewed: September 2020) MTDD
--- NOTE | 2022-07-15 10:03 | CDI ---
Documentation Clarification Form Date: 07/15/2022 09:49:37 AM From: Kaya Palomares Phone: Admit Date: 07/07/2022 02:14:00 PM Patient Name: Zari Mae Visit Number: [id number] Discharge Date: 07/11/2022 04:30:00 PM ATTENTION: The Clinical Documentation Specialists (CDI) and [facility] Coding Staff appreciate your assistance in clarifying documentation. Please respond to the clarification below the line at the bottom and electronically sign. The CDI & [facility] Coding staff will review the response and follow-up if needed. Please note: Queries are made part of the Legal Health Record. If you have any questions, please contact the author of this message via ITS. Dr. James Mackay Your patient has the documented diagnosis of Hx unspecified CHF ED Note. Additional information regarding the type and acuity of CHF is requested. History/Risk Factors: 77yo F, Recurrent falls, polypharmacy, CHF, orthostatic hypotensive, Parkinson's, acute Fx or malalign cervical, RT thyroid lobe nodule, DMII, A Fib, SSS w PPM, Hx seizure, Hx PE, ALLA Clinical Indicators: VS/Pulse OX: 96 07/07/22; 95 07/08/22; 98 07/09/22; 97 07/09/22; 95 07/10/22 BNP: 162 Echo Results: Normal LV systolic function; Mild MR and TR; Enlarged left atrium Chest X Ray: No acute cardiopulmonary disease/process. Cardiomegaly without evidence of acute HF. Treatment: small bolus of fluids that she does appear clinically dehydrated but we'll hold further fluids until further work up as she does have history of heart failure volume overload In your professional opinion, can you please clarify the acuity and type of CHF if known? [ ] Chronic Systolic Heart Failure (reduced EF) [ ] Chronic Diastolic Heart Failure (preserved EF) [ ] Chronic Systolic & Diastolic Heart Failure [ ] Other, please specify [ ] Unable to determine (Template Last Revised: September 2020) MTDD
--- NOTE | 2022-07-15 10:26 | CDI ---
Documentation Clarification Form Date: 07/15/2022 10:05:38 AM From: Kaya Palomares Phone: Admit Date: 07/07/2022 02:14:00 PM Patient Name: Zari Mae Visit Number: [id number] Discharge Date: 07/11/2022 04:30:00 PM ATTENTION: The Clinical Documentation Specialists (CDI) and [facility] Coding Staff appreciate your assistance in clarifying documentation. Please respond to the clarification below the line at the bottom and electronically sign. The CDI & [facility] Coding staff will review the response and follow-up if needed. Please note: Queries are made part of the Legal Health Record. If you have any questions, please contact the author of this message via ITS. Dr. James Mackay Your patient is receiving the following: [insert treatment, date]. Please clarify what condition/diagnosis is being treated. History/Risk Factors: 77yo F, ortho hypotension, Hx falls, polypharmacy, AECOPD, CHF, ALLA, DMII, Parkinson's, acute Fx or malalign cervical, RT thyroid lobe nodule, A Fib, SSS w PPM, Hx seizure, Hx PE Clinical indicators: Vital signs: 97.7 F; Pulse Rate 62 60 64; Respiratory 18; BP 115/68; O2 Sat by Pulse 98 VS/Pulse OX: 96 07/07/22; 95 07/08/22; 98 07/09/22; 97 07/09/22; 95 07/10/22 Treatment: Breathing TX: We will continue steroid and breathing treatment O2/Vent/BiPap: ALLA but does not wear CPAP Is there an additional diagnosis that is clinically appropriate for this patient? [ ] Chronic Hypoxic Respiratory Failure [ ] Chronic Hypercapnic Respiratory Failure [ ] Other Diagnosis, please specify [ ] Unable to determine (Template Last Reviewed: September 2020) MTDD
--- NOTE | 2022-07-17 04:02 | PN ---
PROGRESS NOTE Hypertension with CHF; chronic diastolic heart failure; chronic hypoxemic respiratory failure, hypercapnic. MMODL / IJN: [id number] /
== END 2022-07-11 16:30 | disposition home health service (06) | DRG 312 ==
LOC: EC 12:08 → 6NMEDSUR 16:00 → 4SSUR 20:15 → OBSVTOIN 07-07 14:14
PROVIDERS: ADMIT Family Medicine; ATTEND Family Medicine
DX: I95.2 Hypotension due to drugs (principal); G92.8 Other toxic encephalopathy; E87.20 Acidosis, unspecified; I48.92 Unspecified atrial flutter; J44.1 Chronic obstructive pulmonary disease with (acute) exacerbation; I47.1 Supraventricular tachycardia; I50.32 Chronic diastolic (congestive) heart failure; J96.11 Chronic respiratory failure with hypoxia; J96.12 Chronic respiratory failure with hypercapnia; G20 Parkinson's disease; E11.42 Type 2 diabetes mellitus with diabetic polyneuropathy; I11.0 Hypertensive heart disease with heart failure; E04.1 Nontoxic single thyroid nodule; E05.90 Thyrotoxicosis, unspecified without thyrotoxic crisis or storm; G40.909 Epilepsy, unspecified, not intractable, without status epilepticus; E11.65 Type 2 diabetes mellitus with hyperglycemia; I08.1 Rheumatic disorders of both mitral and tricuspid valves; Z79.85 Long-term (current) use of injectable non-insulin antidiabetic drugs; I49.5 Sick sinus syndrome; Z99.81 Dependence on supplemental oxygen; I48.0 Paroxysmal atrial fibrillation; E86.0 Dehydration; G25.0 Essential tremor; R29.6 Repeated falls; E78.5 Hyperlipidemia, unspecified; M79.7 Fibromyalgia; G47.33 Obstructive sleep apnea (adult) (pediatric); K59.00 Constipation, unspecified; M51.36 Other intervertebral disc degeneration, lumbar region; M47.812 Spondylosis without myelopathy or radiculopathy, cervical region; M25.78 Osteophyte, vertebrae; M43.16 Spondylolisthesis, lumbar region; I44.0 Atrioventricular block, first degree; R01.1 Cardiac murmur, unspecified; G89.4 Chronic pain syndrome; R79.89 Other specified abnormal findings of blood chemistry; M47.26 Other spondylosis with radiculopathy, lumbar region; M48.02 Spinal stenosis, cervical region; W19.XXXA Unspecified fall, initial encounter; X58.XXXA Exposure to other specified factors, initial encounter; Z20.822 Contact with and (suspected) exposure to COVID-19; Z79.899 Other long term (current) drug therapy; Y92.009 Unspecified place in unspecified non-institutional (private) residence as the place of occurrence of the external cause; Z91.81 History of falling; Z28.310 Unvaccinated for COVID-19; Z79.01 Long term (current) use of anticoagulants; Z88.8 Allergy status to other drugs, medicaments and biological substances; Z91.013 Allergy to seafood; Z88.5 Allergy status to narcotic agent; Z91.048 Other nonmedicinal substance allergy status; Z86.711 Personal history of pulmonary embolism; Z79.4 Long term (current) use of insulin; Z90.81 Acquired absence of spleen; Z95.0 Presence of cardiac pacemaker; Z87.891 Personal history of nicotine dependence
CPT/HCPCS: 36415; 70450; 71046; 72125; 72132; 74177; 74230; 80048; 80053; 81003; 82140; 83036; 83605; 83880; 84145; 84439; 84443; 84484; 85025; 85379; 85610; 85730; 87040; 87636; 93005; 93306; 94640; 94760; 95816; 96374; 96375; 99285

== ENCOUNTER 2022-08-24 12:06 | Inpatient (IN) | payer MEDICARE, OTHER ==
[2022-08-24 13:18] LABS: Basophils % (A) 0 %; Eosinophils # (A) 0.1 k/uL (0-0.7); Eosinophils % (A) 1 %; HCT 39.8 % (34.0-46.0); HGB 12.4 gm/dL (11.4-16.0); Hypochromasia Moderate; Lymphocytes % (A) 29 %; MCH 28.7 pg (25.0-35.0); MCV 92.4 fL (80.0-100.0); Mean Platelet Volume 8.7; Monocytes # (A) 0.8 k/uL (0-1.0); Monocytes % (A) 8 %; Neutrophils # (A) 6.2 k/uL (1.3-7.7); Neutrophils % (A) 60 %; Platelet Count 325 k/uL (150-450); RBC 4.31 m/uL (3.80-5.40); RDW 13.3 % (11.5-15.5); WBC 10.3 k/uL (3.8-10.6)
[2022-08-24 13:31] LABS: ALT 40 U/L (4-34); AST 29 U/L (14-36); African American GFR (CKD) 77 (>60 ml/min/1.73 sqM); Albumin 3.8 g/dL (3.5-5.0); Alkaline Phosphatase 39 U/L (38-126); Anion Gap 4 mmol/L; Blood Urea Nitrogen 19 mg/dL (7-17); Calcium 9.4 mg/dL (8.4-10.2); Carbon Dioxide 32 mmol/L (22-30); Chloride 102 mmol/L (98-107); Glucose 116 mg/dL (74-99); Magnesium 1.7 mg/dL (1.6-2.3); Non-African American GFR(CKD) 67 (>60 ml/min/1.73 sqM); Sodium 138 mmol/L (137-145); Total Bilirubin 0.4 mg/dL (0.2-1.3); Total Protein 6.2 g/dL (6.3-8.2)
[2022-08-24] MEDS ORDERED: DEXTROSE 50% SYRINGE 50 ML IVP STA (13:50)
[2022-08-24] MEDS ORDERED: INSULIN REGULAR 100 UNIT/ML VIAL (IV) IV ONE (13:50)
[2022-08-24] MEDS ORDERED: ALBUTEROL NEBULIZED (CONC) 20 MG, SODIUM CHLORIDE 0.9% NEBULIZ 3 ML INHALATION ONE ×2 (13:51)
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
[2022-08-24 14:37] LABS: T4, Free (Free Thyroxine) 2.19 ng/dL (0.78-2.19)
[2022-08-24 15:24] LABS: Calcium 8.9 mg/dL (8.4-10.2)
--- NOTE | 2022-08-24 15:31 | CT ---
EXAMINATION TYPE: CT brain wo con CT DLP: 1139.4 mGycm, Automated exposure control for dose reduction was used. DATE OF EXAM: 08/24/2022 3:26 PM COMPARISON: CT brain C-spine 07/06/2022. CLINICAL INDICATION:Female, 77 years old with history of seizure, TECHNIQUE: Brain: Multiple axial CT images of the brain were obtained without IV contrast. Coronal and sagittal reformats reviewed. FINDINGS: Brain: Extra-axial spaces: No abnormal extra-axial fluid collections. Ventricular system: Within normal limits Cerebral parenchyma: No acute intraparenchymal hemorrhage or mass effect. The todd-white junction is well differentiated. Scattered hypoattenuating areas are seen within the white matter. Cerebellum: Unremarkable. Mass effect: No evidence of midline shift. Intracranial vasculature: unremarkable Soft tissues: Normal. Calvarium/osseous structures: No depressed skull fracture. Paranasal sinuses and mastoid air cells: Minimal mucosal thickening of the right maxillary sinus. Visualized orbits: Orbital contents are intact. IMPRESSION: 1. No acute intracranial process. 2. Nonspecific white matter changes, likely secondary to chronic small vessel ischemic disease.
--- NOTE | 2022-08-24 15:40 | XR ---
EXAMINATION TYPE: XR chest 1V DATE OF EXAM: 08/24/2022 COMPARISON: 07/06/2022 HISTORY: 77-year-old female. Seizure TECHNIQUE: Single frontal view of the chest is obtained. FINDINGS: Left anterior chest wall pacemaker generator with right atrial and right ventricular leads . Mild cardiomegaly. Some strandy atelectasis in the lower lungs. Limited by large body habitus and p ortable technique casting hazy densities in the lower lungs. No daily consolidation or pleural effusi on. Partially visualized plate and screw fixation proximal right humerus. Chronic widening right AC j oint. Moderate to severe degenerative change left AC joint. IMPRESSION: Cardiomegaly and strandy atelectasis in the lower lungs. No definite acute process.
[2022-08-24 15:49] LABS: Potassium 5.5 mmol/L (3.5-5.1)
[2022-08-24] MEDS ORDERED: SODIUM CHLORIDE 0.9% 1,000 ML IV STA ×2 (16:18)
[2022-08-24 17:19] LABS: Appearance,Urine Clear (Clear); Bilirubin,Urine Negative (Negative); Blood,Urine Negative (Negative); Color,Urine Colorless; Glucose,Urine (UA) Trace (Negative); Ketones,Urine Negative (Negative); Leukocyte Esterase,Urine Small (Negative); Nitrite,Urine Negative (Negative); PH, Urine 5.5 (5.0-8.0); Protein,Urine Negative (Negative); RBC,Urine <1 /hpf (0-5); Specific Gravity,Urine 1.008 (1.001-1.035); Urobilinogen,Urine <2.0 mg/dL (<2.0); WBC,Urine 4 /hpf (0-5)
[2022-08-24 18:35] LABS: Glucose,Whole Blood 108 mg/dL (70-110)
[2022-08-24] MEDS ORDERED: IPRATROPIUM-ALBUTEROL 3 ML NEB INHALATION PRN (18:47)
[2022-08-24] MEDS ORDERED: IPRATROPIUM-ALBUTEROL 3 ML NEB INHALATION SCH (20:00)
[2022-08-24 20:58] LABS: Calcium 8.7 mg/dL (8.4-10.2); Potassium 4.6 mmol/L (3.5-5.1)
[2022-08-24] MEDS: levETIRAcetam 500 MG TAB PO SCH (21:33)
[2022-08-25] MEDS: oxyCODONE-APAP 7.5-325MG 1 EACH TAB PO SCH ×4 (00:39→21:17)
[2022-08-25] MEDS: levETIRAcetam 500 MG TAB PO SCH ×2 (08:11→21:15)
[2022-08-25] MEDS ORDERED: TRIAMCINOLONE 0.1% CREAM 80 GM TUBE TOPICAL PRN (09:29)
[2022-08-25] MEDS ORDERED: levETIRAcetam 250 MG TAB PO SCH (10:15)
[2022-08-25] MEDS ORDERED: LORazepam 2 MG/ML INJ IM STA (11:40)
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
[2022-08-25] MEDS: METOCLOPRAMIDE 10 MG TAB PO SCH ×3 (12:33→21:15)
[2022-08-25] MEDS: MIDODRINE 5 MG TAB PO SCH ×2 (12:38→17:04)
[2022-08-25 16:52] LABS: Glucose,Whole Blood 106 mg/dL (70-110)
[2022-08-25] MEDS ORDERED: LORazepam 2 MG/ML INJ IV STA (17:01)
[2022-08-25] MEDS: PANTOPRAZOLE 40 MG TABLET PO SCH (17:11)
[2022-08-25] MEDS: GABAPENTIN 300 MG CAP PO SCH ×2 (17:11→21:17)
[2022-08-25] MEDS: CARBIDOPA-LEVODOPA 10-100 MG 1 EACH TAB PO SCH ×2 (17:11→21:15)
[2022-08-25] MEDS ORDERED: levETIRAcetam IV 2,000 MG in SODIUM CHLORIDE 0.9% 250 ML IVPB ONE (17:30)
[2022-08-25 20:55] LABS: Glucose,Whole Blood 183 mg/dL (70-110)
[2022-08-25] MEDS ORDERED: levETIRAcetam 500 MG TAB PO SCH (21:00)
[2022-08-25] MEDS: HYDROCORTISONE 20 MG TAB PO SCH (21:15)
[2022-08-25] MEDS: ATORVASTATIN 40 MG TAB PO SCH (21:15)
--- NOTE | 2022-08-25 21:21 | EEG ---
ELECTROENCEPHALOGRAM REPORT CLINICAL HISTORY: This is a 77-year-old woman with history of seizure, who is having recurrent seizures. The video EEG is obtained to evaluate for seizure epileptiform activity. RELEVANT MEDICATIONS: Keppra, clonazepam, clobazam, gabapentin. EEG TYPE: A routine 21-channel EEG is performed with video using the 10/20 electrode placement system. DESCRIPTION: Wakefulness is only obtained. During awake state, the background consists of low-to- moderate voltage of 8.5 to 9.5 hertz activity. The background seems sharp in contour over bilateral hemisphere. There is no physiological sleep architecture. There is no focal slowing. Interictal and ictal are rare. There are rare generalized polyspike slow wave discharges, which increases risk for seizures. Otherwise, there is no seizure noted during this study. Photic stimulation did not evoke a posterior driving response. There is no abnormality during the photic stimulation. Hyperventilation is not performed. CLINICAL INTERPRETATION: This is an abnormal routine EEG. 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 No active seizure is noted. Otherwise, the background is normal. No focal slowing is noted. Clinical correlation is recommended. MMODL / IJN: [id number] / MTDD
--- NOTE | 2022-08-25 22:33 | HP ---
HISTORY AND PHYSICAL Zari Mae was evaluated in the emergency room on 08/24/2022. HISTORY OF PRESENT ILLNESS: A 77-year-old white female, came to the hospital for severe hyperkalemia of unclear etiology. Not sure if she has been compliant with her hyperthyroid medicine as she has a very low TSH and a very high T4 normal. Possibly, I have to increase her hyperthyroid medications. She is admitted to rule out seizures and hyperkalemia. History of bad COPD, atrial fibrillation, sleep apnea, hyperthyroidism, dyslipidemia, pulmonary emboli, and SVT HOME MEDICATIONS: 1. Prozac 20 daily. 2. Zovirax 400 daily. 3. Xarelto 20 daily. 4. Trulicity 1.5 subcutaneously weekly. 5. Cortef 20 b.i.d., for adrenal insufficiency. 6. Midodrine 10 a.c. t.i.d., for orthostatic hypotension. 7. Lipitor 40 mg at night. 8. Sinemet 10/100 t.i.d. 9. Hydrocortisone cream b.i.d. 10.Losartan 25 daily. 11. 10 mg daily. 12.Keppra 1000 q.12. 13.Methimazole 10 mg daily. ALLERGIES: 1. Shellfish. 2. Symbicort. 3. Spiriva. 4. Demerol. 5. Diovan. PAST MEDICAL HISTORY: Atrial fibrillation, atrial flutter, asthma, cancer, hyperthyroidism, COPD, adrenal insufficiency, diabetes mellitus, fibromyalgia, GERD, dyslipidemia, osteoarthritis, pulmonary embolism, seizure, sleep apnea, and SVT. FAMILY HISTORY: Father, myocardial infarction. Mother, respiratory dysfunction. PHYSICAL EXAMINATION: VITAL SIGNS: Temperature 98.6, pulse 60s to 70s, respirations 16 to 18, blood pressures 118 to 130s over 70s to 80s, O2 of 93% to 99% on room air. O2, she wears 2 to 3 L. CARDIOVASCULAR: S1 and S2. LUNGS: Scattered rhonchi and wheeze. HEMATOLOGIC: Negative Homans. PSYCHIATRIC: Fair mood and affect. GI: Soft. NEUROLOGIC: She has some twitches and jerks throughout her body. ASSESSMENT: 1. Hyperkalemia, unclear etiology. 2. Seizure disorder. 3. Pseudoseizures. 4. Chronic obstructive pulmonary disease. 5. Fibromyalgia. 6. Hyperthyroidism. 7. Sleep apnea. PLAN: Prognosis is guarded. Possibly increase methimazole to 15 mg daily. Wait for Neurology and Renal doctors to see her. Seen in the ER on 08/24/2022. MMRADHA / IJN: [id number] /
[2022-08-26 06:11] LABS: Glucose,Whole Blood 102 mg/dL (70-110)
[2022-08-26] MEDS: MIDODRINE 5 MG TAB PO SCH ×3 (06:35→16:45)
[2022-08-26] MEDS: PANTOPRAZOLE 40 MG TABLET PO SCH ×2 (06:35→16:46)
[2022-08-26] MEDS: NON FORMULARY DRUG (Clobazam [Clobazam] 10 MG Tablet) PO SCH (08:36)
[2022-08-26] MEDS: GABAPENTIN 300 MG CAP PO SCH ×3 (08:45→21:16)
[2022-08-26] MEDS: oxyCODONE-APAP 7.5-325MG 1 EACH TAB PO SCH ×3 (08:46→21:17)
[2022-08-26] MEDS: LOSARTAN 25 MG TAB PO SCH (08:46)
[2022-08-26] MEDS: HYDROCORTISONE 20 MG TAB PO SCH ×2 (08:46→21:16)
[2022-08-26] MEDS: FLUoxetine HCL 20 MG CAP PO SCH (08:46)
[2022-08-26] MEDS: ACYCLOVIR 200 MG CAP PO SCH (08:46)
[2022-08-26] MEDS: CARBIDOPA-LEVODOPA 10-100 MG 1 EACH TAB PO SCH ×3 (08:46→21:40)
[2022-08-26] MEDS: METOCLOPRAMIDE 10 MG TAB PO SCH ×2 (08:46→11:58)
[2022-08-26] MEDS: methIMAzole 5 MG TAB PO SCH (08:47)
[2022-08-26] MEDS: METOPROLOL SUCCINATE (ER) 100 MG TAB.ER.24H PO SCH (08:47)
[2022-08-26] MEDS: RIVAROXABAN 20 MG TAB PO SCH (08:47)
[2022-08-26] MEDS: levETIRAcetam 500 MG TAB PO SCH ×2 (08:48→21:40)
[2022-08-26] MEDS ORDERED: methIMAzole 5 MG TAB PO SCH (09:00)
[2022-08-26 11:47] LABS: Glucose,Whole Blood 154 mg/dL (70-110)
[2022-08-26] MEDS: DIVALPROEX 500 MG TABLET.DR PO SCH ×2 (11:54→21:17)
--- NOTE | 2022-08-26 13:53 | P.PN ---
Subjective Progress Note Date: 08/26/22 Patient seen at bedside and she stated that the she continues to have these facial twitch jerks with hiccups. Patient yesterday received 2 mg of Ativan in total and a got loaded of the Keppra 2 g and according to her that did not help. Otherwise denies of any new neurological deficit. Objective - Vital Signs Vital signs: Vital Signs Temp 97.8 F 08/26/22 07:25 Pulse 68 08/26/22 07:25 Resp 20 08/26/22 07:25 BP 109/67 08/26/22 11:54 Pulse Ox 98 08/26/22 07:25 FiO2 Intake & Output 08/25/22 08/26/22 08/26/22 18:59 06:59 18:59 Intake Total 340 Balance 340 Intake: Oral 340 Other: Voiding Method Bedside Commode # Voids 2 2 - Exam GENERAL: The patient is lying in bed and is not in acute distress. NEUROLOGICAL: Higher mental function: The patient is awake, alert, oriented to self, place and time. Patient is following commands. No aphasia and no neglect. Cranial nerves: The pupils are round, equal and reactive to light. Visual bennett are full to confrontation throughout. Extraocular movement is intact no nystagmus is noted. Facial sensation is normal to touch throughout. The facial strength is normal throughout. Patient has episode of brief episode of entire facial twitching/jerking with hiccups ?shoulder jerk. Tongue is midline and moved [id number] without any difficulty. No dysarthria is noted. Shoulder shrug is normal bilaterally. Motor: The strength is 5 over 5 throughout. Patient has few episodes of diffuse body jerk that is very short lasting with hiccups. Normal tone and bulk. Cerebellum: Normal finger to nose bilaterally. Sensation: Sensation is normal to touch throughout. Reflexes (right/left): 1+ throughout. Plantars are mute bilaterally. Some of the workup during his hospital visit consisted of: CBC with differential is unremarkable Potassium level is 6.0 presentation which has normalized. Initial serum glucose is 116. TSH is less than 0.015 but the free T4 is 2.19 TSH is less than 0.015 and the free T4 is 2.19 Keppra level is 41.8 which is therapeutic level CT of the head is reported as no acute intracranial process. Nonspecific white matter changes, likely secondary due to chronic small vessel ischemic disease. EEG is abnormal. 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 No active seizure noted. Otherwise the background is normal. No focal slowing is noted. - Labs CBC & Chem 7: 08/24/22 12:34 08/24/22 20:24 Labs: Abnormal Lab Results - Last 24 Hours (Table) 08/25/22 08/26/22 Range/Units 20:53 11:46 POC Glucose (mg/dL) 183 H 154 H (70-110) mg/dL Assessment and Plan Assessment: Breakthrough seizure (Repeated episodes of facial twitching/jerks with hiccups that are brief) Hyperkalemia--resolved. History of seizures History of Positive orthostatic hypotension and on Midodrine suspected Parkinson's disease (diagnosed at [facility]) Syncope status post pacemaker History of Recurrent falls due to multifactorial: Parkinson's disease, or thostatic hypotension, hypotensive episode, polypharmacy Atrial fibrillation status post ablation on Xarelto History of recurrent falls History of pulmonary embolism Diabetes mellitus Sleep apnea Polypharmacy Plan: I have increased Keppra from 1000mg bid to 1500mg 1 tab bid on 08/25/2022. I started her on Depakote 500mg 1 tab bid. Continue home Clobazam 10mg daily. I will get repeat EEG for this Sunday to asses if any improvement in her EEG (improvement in discharges, active seizures). Recommend prolonged EEG as outpatient. Placed on seizure precautions seizure pads Regarding patient abnormal thyroid will defer the management to the primary team PT and OT are consulted I feel the patient is on polypharmacy and that needs to be modified by her primary care physician. Her medication increases her risk of falls, confusions and even tremors. We'll defer the rest of the medical management to primary team Recommend the patient to follow-up with a neurologist in outpatient within 1-2 weeks. The plan is discussed with patient and her nurse. Time with Patient: Less than 30
[2022-08-26 16:41] LABS: Glucose,Whole Blood 114 mg/dL (70-110)
[2022-08-26 20:32] LABS: Glucose,Whole Blood 140 mg/dL (70-110)
[2022-08-26] MEDS: ATORVASTATIN 40 MG TAB PO SCH (21:17)
[2022-08-27] MEDS: clonazePAM 1 MG TAB PO PRN ×3 (01:06→21:11)
[2022-08-27 06:02] LABS: Glucose,Whole Blood 114 mg/dL (70-110)
[2022-08-27] MEDS: PANTOPRAZOLE 40 MG TABLET PO SCH ×2 (06:33→16:43)
[2022-08-27] MEDS: MIDODRINE 5 MG TAB PO SCH ×3 (06:33→16:43)
[2022-08-27] MEDS: NON FORMULARY DRUG (Clobazam [Clobazam] 10 MG Tablet) PO SCH (10:10)
[2022-08-27] MEDS: LOSARTAN 25 MG TAB PO SCH (10:11)
[2022-08-27] MEDS: oxyCODONE-APAP 7.5-325MG 1 EACH TAB PO SCH ×3 (10:11→21:10)
[2022-08-27] MEDS: FLUoxetine HCL 20 MG CAP PO SCH (10:11)
[2022-08-27] MEDS: GABAPENTIN 300 MG CAP PO SCH ×3 (10:12→21:10)
[2022-08-27] MEDS: DIVALPROEX 500 MG TABLET.DR PO SCH ×2 (10:13→21:11)
[2022-08-27] MEDS: HYDROCORTISONE 20 MG TAB PO SCH ×2 (10:14→21:11)
[2022-08-27] MEDS: RIVAROXABAN 20 MG TAB PO SCH (10:14)
[2022-08-27] MEDS: CARBIDOPA-LEVODOPA 10-100 MG 1 EACH TAB PO SCH ×3 (10:14→21:11)
[2022-08-27] MEDS: ACYCLOVIR 200 MG CAP PO SCH (10:14)
[2022-08-27] MEDS: methIMAzole 5 MG TAB PO SCH (10:15)
[2022-08-27] MEDS: METOPROLOL SUCCINATE (ER) 100 MG TAB.ER.24H PO SCH (10:15)
[2022-08-27] MEDS: levETIRAcetam 500 MG TAB PO SCH ×2 (10:15→21:11)
[2022-08-27 11:54] LABS: Glucose,Whole Blood 112 mg/dL (70-110)
--- NOTE | 2022-08-27 12:03 | P.PN ---
Subjective Progress Note Date: 08/27/22 The patient seen at bedside and she states that she is continues to have these hiccups with these jerks in the face upper extremities even with the increase of the Keppra and the the start of Depakote and she states that the Ativan has been ineffective. According to the nurse she has been neurologically stable and following commands. Objective - Vital Signs Vital signs: Vital Signs Temp 97.8 F 08/27/22 07:01 Pulse 69 08/27/22 11:53 Resp 16 08/27/22 07:01 BP 103/63 08/27/22 11:53 Pulse Ox 99 08/27/22 07:01 FiO2 Intake & Output 08/26/22 08/27/22 08/27/22 18:59 06:59 18:59 Intake Total 480 Balance 480 Intake: Oral 480 Other: Voiding Method Bedside Commode # Voids 2 1 1 - Exam GENERAL: The patient is lying in bed and is not in acute distress. NEUROLOGICAL: Higher mental function: The patient is awake, alert, oriented to self, place and time. Patient is following commands. No aphasia and no neglect. Cranial nerves: The pupils are round, equal and reactive to light. Visual bennett are full to confrontation throughout. Extraocular movement is intact no nystagmus is noted. Facial sensation is normal to touch throughout. The facial strength is normal throughout. Patient has episode of brief episode of entire facial twitching/jerking with hiccups ?shoulder jerk. Tongue is midline and moved [id number] without any difficulty. No dysarthria is noted. Shoulder shrug is normal bilaterally. Motor: The strength is 5 over 5 throughout. Patient has few episodes of diffuse body jerk that is very short lasting with hiccups. Normal tone and bulk. Cerebellum: Normal finger to nose bilaterally. Sensation: Sensation is normal to touch throughout. Reflexes (right/left): 1+ throughout. Plantars are mute bilaterally. Some of the workup during his hospital visit consisted of: CBC with differential is unremarkable Potassium level is 6.0 presentation which has normalized. Initial serum glucose is 116. TSH is less than 0.015 but the free T4 is 2.19 TSH is less than 0.015 and the free T4 is 2.19 Keppra level is 41.8 which is therapeutic level CT of the head is reported as no acute intracranial process. Nonspecific white matter changes, likely secondary due to chronic small vessel ischemic disease. EEG is abnormal. 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 No active seizure noted. Otherwise the background is normal. No focal slowing is noted. - Labs CBC & Chem 7: 08/24/22 12:34 08/24/22 20:24 Labs: Abnormal Lab Results - Last 24 Hours (Table) 08/26/22 08/26/22 08/27/22 Range/Units 16:39 20:31 06:01 POC Glucose (mg/dL) 114 H 140 H 114 H (70-110) mg/dL 08/27/22 Range/Units 11:43 POC Glucose (mg/dL) 112 H (70-110) mg/dL Assessment and Plan Assessment: Breakthrough seizure (Repeated episodes of facial twitching/jerks with hiccups that are brief. According to her she was told those were seizure). Hyperkalemia--resolved. History of seizures (according to her diagnosed at [facility]) History of Positive orthostatic hypotension and on Midodrine suspected Parkinson's disease (diagnosed by Dr. Lyon) Syncope status post pacemaker History of Recurrent falls due to multifactorial: Parkinson's disease, orthostatic hypotension, hypotensive episode, polypharmacy Atrial fibrillation status post ablation on Xarelto History of recurrent falls History of pulmonary embolism Diabetes mellitus Sleep apnea Polypharmacy Plan: She does not feel her head cups facial body jerks has improved with increase of Keppra and the start of Depakote as well as Ativan when necessary. I have increased Keppra from 1000mg bid to 1500mg 1 tab bid on 08/25/2022 and started Depakote 500mg 1 tab bid on 08/26/22. Continue home Clobazam 10mg daily. I will get repeat EEG for this Sunday to asses if any improvement in her EEG (improvement in discharges, active seizures). Recommend prolonged EEG as outpatient. Placed on seizure precautions seizure pads Regarding patient abnormal thyroid will defer the management to the primary team PT and OT are consulted I feel the patient is on polypharmacy and that needs to be modified by her primary care physician. Her medication increases her risk of falls, confusions and even tremors. We'll defer the rest of the medical management to primary team Recommend the patient to follow-up with a neurologist in outpatient within 1-2 weeks. She has not followed up with a neurologist as an outpatient and states has a hard time getting appointment with Dr. Davis and does not want to follow up with other local neurologist because of bad experiences. She was notified if she cannot follow up with Dr. Davis to find a local neurologist in the [place] region. The plan is discussed with patient and her nurse. Dr. Pacheco will start neurology service tomorrow A.M. Time with Patient: Less than 30
[2022-08-27 16:36] LABS: Glucose,Whole Blood 140 mg/dL (70-110)
[2022-08-27 20:43] LABS: Glucose,Whole Blood 151 mg/dL (70-110)
[2022-08-27] MEDS: ATORVASTATIN 40 MG TAB PO SCH (21:10)
--- NOTE | 2022-08-27 22:31 | HP ---
HISTORY AND PHYSICAL A 77-year-old white female who has been seen by multiple specialists for multiple years including [facility] for pseudoseizures . She came in today with borderline hyperthyroidism, possibly due to noncompliance of medication versus poor control. We increased her midodrine to 15 mg a day from 10. She is also being treated for seizures. She is on multiple medicines for seizures with jerking of her eyes and face from electric shocks. She has been diagnosed with Parkinson's at [facility]. She remains on Klonopin for severe anxiety, she has been on this for years. Seen Psychiatry many times, gabapentin 600 t.i.d. she takes for neuropathy and seizures. She is on Cortef or hydrocortisone 20 b.i.d. for renal insufficiency. She is on Keppra 1500 q.12 hours for seizures now which apparently has improved. Her Tapazole increasing dose may be helping her too. Cozaar 25 mg for hypertension, Toprol- XL for hypertension. She has a history of atrial fibrillation, RVR, COPD, right-sided heart failure. Midodrine for orthostatic hypotension. She takes Percocet 7.5 every 8 hours p.r.n. for back pain, neck pain, cervical lumbar disk disease with surgeries in the past. She has been stabilized by pain specialist in the past for many years as well as anxiety medicines from Psychiatry. She is on Xarelto for atrial fibrillation prophylaxis. Discussed with her possibly switching her medications around as she states she has taken too many. She is also diabetic. She is on gastroparesis medicines, which we are going to try off. The patient states she has been stabilized for years on these medications and she does not want anyway to change her medicines or reduce her pain medicine or her anxiety medicine. We will try continue on current treatments she will be able to go home. She wears oxygen for dependent COPD at home. MMODL / IJN: [id number] /
[2022-08-28 06:25] LABS: Glucose,Whole Blood 103 mg/dL (70-110)
[2022-08-28] MEDS: clonazePAM 1 MG TAB PO PRN ×2 (06:48→19:51)
[2022-08-28] MEDS: PANTOPRAZOLE 40 MG TABLET PO SCH ×2 (06:48→17:20)
[2022-08-28] MEDS: MIDODRINE 5 MG TAB PO SCH ×3 (06:48→17:20)
[2022-08-28] MEDS: METOPROLOL SUCCINATE (ER) 100 MG TAB.ER.24H PO SCH (08:37)
[2022-08-28] MEDS: LOSARTAN 25 MG TAB PO SCH (08:37)
[2022-08-28] MEDS: oxyCODONE-APAP 7.5-325MG 1 EACH TAB PO SCH ×3 (08:37→21:46)
[2022-08-28] MEDS: FLUoxetine HCL 20 MG CAP PO SCH (08:37)
[2022-08-28] MEDS: GABAPENTIN 300 MG CAP PO SCH ×3 (08:37→21:47)
[2022-08-28] MEDS: DIVALPROEX 500 MG TABLET.DR PO SCH ×2 (08:37→21:46)
[2022-08-28] MEDS: CARBIDOPA-LEVODOPA 10-100 MG 1 EACH TAB PO SCH ×3 (08:38→21:46)
[2022-08-28] MEDS: HYDROCORTISONE 20 MG TAB PO SCH ×2 (08:38→21:46)
[2022-08-28] MEDS: levETIRAcetam 500 MG TAB PO SCH ×2 (08:38→22:17)
[2022-08-28] MEDS: RIVAROXABAN 20 MG TAB PO SCH (08:38)
[2022-08-28] MEDS: ACYCLOVIR 200 MG CAP PO SCH (08:38)
[2022-08-28] MEDS: methIMAzole 5 MG TAB PO SCH (08:39)
[2022-08-28] MEDS ORDERED: NON FORMULARY DRUG (Dulaglutide [Trulicity] 1.5 MG/0.5 ML Pen.Injctr) SQ SCH (09:00)
[2022-08-28 11:51] LABS: Glucose,Whole Blood 106 mg/dL (70-110)
[2022-08-28] MEDS: NON FORMULARY DRUG (Clobazam [Clobazam] 10 MG Tablet) PO SCH (12:08)
[2022-08-28 16:48] LABS: Glucose,Whole Blood 101 mg/dL (70-110)
[2022-08-28 21:12] LABS: Glucose,Whole Blood 283 mg/dL (70-110)
[2022-08-28] MEDS: ATORVASTATIN 40 MG TAB PO SCH (21:47)
--- NOTE | 2022-08-29 02:23 | EEG ---
ELECTROENCEPHALOGRAM REPORT PREAMBLE: This is a 77-year-old female, who came to the hospital after having a seizure on 08/24/2022. The patient was having hiccups with jerks in the face. Previous EEG was abnormal. This is a followup EEG. EEG FINDINGS: This is a 21-channel digital EEG recorded with video component, utilizing 10/20 international system with referential and bipolar montages. Background consists of well-developed, moderately well regulated, mixed frequencies of 7 hertz theta with some 8 hertz alpha activity seen in bihemispheric region. Background does not seem to be clearly reactive to eye opening or closing. Photic driving response was not seen. Only 3 instance of high-amplitude polyspike and slow wave were seen in the entire study. No electrographic seizure was recorded. Different stages of sleep were not clearly seen. IMPRESSION: This is an abnormal EEG due to: 1. Background slowing of mild degree, suggestive of mild generalized cerebral dysfunction as can be seen with encephalopathy. 2. Very sporadic presence of generalized poly spike and slow wave (x3) seen during the study. When compared to the EEG from 08/25/2022, the epileptiform activity has remarkably improved. No electrographic seizure was recorded. MMODL / IJN: [id number] /
--- NOTE | 2022-08-29 05:31 | PN ---
PROGRESS NOTE SUBJECTIVE: A 77-year-old white female, much better from a seizure perspective. Home medicines were reviewed with her. Gave her increased script for methimazole 15 mg daily. New medications Keppra 1500 b.i.d., and Depakote 500 b.i.d. are ordered per Neurology. She will be sent home on these. Followup as an outpatient. Seizures are better controlled. Medically she is stable. She gave me more appropriate answers. OBJECTIVE: NEURO: Her facial jerking has resolved. CARDIOVASCULAR: S1, S2. LUNGS: Clear. GI: Soft. HEMATOLOGY: Negative Homans. ASSESSMENT: Seizures, improved, chronic obstructive pulmonary disease exacerbation, hyperthyroidism, all improved. Follow up as an outpatient. MMODL / IJN: [id number] /
[2022-08-29 06:14] LABS: Glucose,Whole Blood 132 mg/dL (70-110)
[2022-08-29] MEDS: PANTOPRAZOLE 40 MG TABLET PO SCH ×2 (06:30→15:57)
[2022-08-29] MEDS: MIDODRINE 5 MG TAB PO SCH ×3 (06:30→15:57)
[2022-08-29] MEDS: clonazePAM 1 MG TAB PO PRN ×2 (06:30→14:59)
[2022-08-29] MEDS: oxyCODONE-APAP 7.5-325MG 1 EACH TAB PO SCH ×2 (10:04→15:56)
[2022-08-29] MEDS: RIVAROXABAN 20 MG TAB PO SCH (10:05)
[2022-08-29] MEDS: FLUoxetine HCL 20 MG CAP PO SCH (10:05)
[2022-08-29] MEDS: levETIRAcetam 500 MG TAB PO SCH (10:05)
[2022-08-29] MEDS: METOPROLOL SUCCINATE (ER) 100 MG TAB.ER.24H PO SCH (10:05)
[2022-08-29] MEDS: methIMAzole 5 MG TAB PO SCH (10:05)
[2022-08-29] MEDS: CARBIDOPA-LEVODOPA 10-100 MG 1 EACH TAB PO SCH ×2 (10:06→15:58)
[2022-08-29] MEDS: DIVALPROEX 500 MG TABLET.DR PO SCH (10:06)
[2022-08-29] MEDS: NON FORMULARY DRUG (Clobazam [Clobazam] 10 MG Tablet) PO SCH (10:06)
[2022-08-29] MEDS: ACYCLOVIR 200 MG CAP PO SCH (10:06)
[2022-08-29] MEDS: GABAPENTIN 300 MG CAP PO SCH ×2 (10:06→15:57)
[2022-08-29] MEDS: HYDROCORTISONE 20 MG TAB PO SCH (10:07)
[2022-08-29] MEDS: LOSARTAN 25 MG TAB PO SCH (10:07)
[2022-08-29 11:28] LABS: Glucose,Whole Blood 159 mg/dL (70-110)
--- NOTE | 2022-08-29 12:30 | CDI ---
Documentation Clarification Form Date: 08/29/2022 12:13:29 PM From: Patito Billings RN,CDS Admit Date: 08/24/2022 4:18:00 PM Patient Name: Zari Mae Visit Number: [id number] Discharge Date: ATTENTION: The Clinical Documentation Specialists (CDI) and [facility] Coding Staff appreciate your assistance in clarifying documentation. Please respond to the clarification below the line at the bottom and electronically sign. The CDI & [facility] Coding staff will review the response and follow-up if needed. Please note: Queries are made part of the Legal Health Record. If you have any questions, please contact the author of this message via ITS. Dr. James Mackay Your patient has past medical history of COPD on home oxygen per H/P. Based on this information and the findings below, is there an additional diagnosis that is clinically appropriate for this patient? History/Risk Factors: Atrial Fibrillation, Asthma, COPD, Diabetes Mellitus, Heart Failure, Pulmonary Embolus, Seizure disorder, Sleep Apnea, Tobacco use: Former smoker Home oxygen: 4L/NC most of the time Clinical Indicators: 77-year-old female presenting to the ER via EMS from home after having a seizure. She is on oxygen at home for COPD and reports that her shortness of breath is at baseline. 08/24 Vital signs: 138/83 68 18 98 % 4/L NC Lung/Breathing assessment: No respiratory distress. Diminished bibasilar otherwise clear to auscultations, no adventitious sounds, no use of accessory muscles. Treatment: Cardiac/Telemetry monitoring Breathing tx: Albuterol/Ipratropium Duoneb 0.5 Mg-3 Mg/3 ML Soln Q4 prn Monitor O2 Sat's (Titrate) Cortef 20 Mg PO BID Is there an additional diagnosis that is clinically appropriate for this patient? [ ] Chronic Hypoxic Respiratory Failure [ ] Other Diagnosis, please specify [ ] Unable to determine (Template Last Revised: October 2020) LAURIED
--- NOTE | 2022-08-29 12:46 | CDI ---
Documentation Clarification Form Date: 08/29/2022 From: Patito Billings RN, CCDS Admit Date: 08/24/2022 4:18:00 PM Patient Name: Zari Mae Visit Number: [id number] Discharge Date: ATTENTION: The Clinical Documentation Specialists (CDI) and [facility] Coding Staff appreciate your assistance in clarifying documentation. Please respond to the clarification below the line at the bottom and electronically sign. The CDI & [facility] Coding staff will review the response and follow-up if needed. Please note: Queries are made part of the Legal Health Record. If you have any questions, please contact the author of this message via ITS. Dr. James Mackay Your patient has the documented diagnosis of unspecified CHF in the past medical history. Additional information regarding the type, acuity of CHF is requested. History/Risk Factors: Atrial Fibrillation, Asthma, COPD, Diabetes Mellitus, Heart Failure, Pulmonary Embolus, Seizure disorder, Sleep Apnea, Tobacco use: Former smoker Home oxygen: 4L/NC most of the time Clinical Indicators: 77-year-old female presenting to the ER via EMS from home after having a seizure. She is on oxygen at home for COPD and reports that her shortness of breath is at baseline. She also has a history of heart failure. 08/24 Vital signs: 138/83 68 18 98 % 4/L NC Lung/Breathing assessment: No respiratory distress. Diminished bibasilar otherwise clear to auscultations, no adventitious sounds, no use of accessory muscles. 07/08/22Echocardiogram Results: Left ventricular ejection fraction is estimated at 55 % 08/24 Chest X Ray: Cardiomegaly and strandy atelectasis in the lower lungs. No definite acute process. Treatment: Cardiac/Telemetry monitoring Breathing tx: Albuterol/Ipratropium Duoneb 0.5 Mg-3 Mg/3 ML Soln Q4 prn Monitor O2 Sat's (Titrate) Cortef 20 Mg PO BID, Cozaar 25 MG PO Daily, Toprol XL 100 MGPO Daily, Lipitor 40 MP PO HS In your professional opinion, can you please clarify the acuity and type of CHF if known? [ ] Chronic Diastolic Heart Failure (preserved EF) [ ] Other, please specify [ ] Unable to determine (Template Last Revised: September 2020) MTDD
[2022-08-29 14:03] VITALS: BP 103/58; PULSE 65; RESP 16; TEMP 97.4
--- NOTE | 2022-09-01 06:28 | CDI ---
Documentation Clarification Form Date: 08/29/2022 12:13:00 PM From: Patito Billings RN, CCDS Admit Date: 08/24/2022 4:18:00 PM Patient Name: Zari Mae Visit Number: [id number] Discharge Date: 08/29/2022 4:24:00 PM ATTENTION: The Clinical Documentation Specialists (CDI) and [facility] Coding Staff appreciate your assistance in clarifying documentation. Please respond to the clarification below the line at the bottom and electronically sign. The CDI & [facility] Coding staff will review the response and follow-up if needed. Please note: Queries are made part of the Legal Health Record. If you have any questions, please contact the author of this message via ITS. Dr. James Mackay Your patient has past medical history of COPD on home oxygen per H/P. Based on this information and the findings below, is there an additional diagnosis that is clinically appropriate for this patient? History/Risk Factors: Atrial Fibrillation, Asthma, COPD, Diabetes Mellitus, Heart Failure, Pulmonary Embolus, Seizure disorder, Sleep Apnea, Tobacco use: Former smoker Home oxygen: 4L/NC most of the time Clinical Indicators: 77-year-old female presenting to the ER via EMS from home after having a seizure. She is on oxygen at home for COPD and reports that her shortness of breath is at baseline. 08/24 Vital signs: 138/83 68 18 98 % 4/L NC Lung/Breathing assessment: No respiratory distress. Diminished bibasilar otherwise clear to auscultations, no adventitious sounds, no use of accessory muscles. Treatment: Cardiac/Telemetry monitoring Breathing tx: Albuterol/Ipratropium Duoneb 0.5 Mg-3 Mg/3 ML Soln Q4 prn Monitor O2 Sat's (Titrate) Cortef 20 Mg PO BID Is there an additional diagnosis that is clinically appropriate for this patient? [ ] Chronic Hypoxic Respiratory Failure [ ] Other Diagnosis, please specify [ ] Unable to determine (Template Last Revised: October 2020) MTDD
--- NOTE | 2022-09-01 06:31 | CDI ---
Documentation Clarification Form Date: 08/29/2022 12:47:00 PM From: Patito Billings RN, CCDS Admit Date: 08/24/2022 4:18:00 PM Patient Name: Zari Mae Visit Number: [id number] Discharge Date: 08/29/2022 4:24:00 PM ATTENTION: The Clinical Documentation Specialists (CDI) and [facility] Coding Staff appreciate your assistance in clarifying documentation. Please respond to the clarification below the line at the bottom and electronically sign. The CDI & [facility] Coding staff will review the response and follow-up if needed. Please note: Queries are made part of the Legal Health Record. If you have any questions, please contact the author of this message via ITS. Dr. James Mackay Your patient has the documented diagnosis of unspecified CHF in the past medical history. Additional information regarding the type, acuity of CHF is requested. History/Risk Factors: Atrial Fibrillation, Asthma, COPD, Diabetes Mellitus, Heart Failure, Pulmonary Embolus, Seizure disorder, Sleep Apnea, Tobacco use: Former smoker Home oxygen: 4L/NC most of the time Clinical Indicators: 77-year-old female presenting to the ER via EMS from home after having a seizure. She is on oxygen at home for COPD and reports that her shortness of breath is at baseline. She also has a history of heart failure. 08/24 Vital signs: 138/83 68 18 98 % 4/L NC Lung/Breathing assessment: No respiratory distress. Diminished bibasilar otherwise clear to auscultations, no adventitious sounds, no use of accessory muscles. 07/08/22Echocardiogram Results: Left ventricular ejection fraction is estimated at 55 % 08/24 Chest X Ray: Cardiomegaly and strandy atelectasis in the lower lungs. No definite acute process. Treatment: Cardiac/Telemetry monitoring Breathing Tx:: Albuterol/Ipratropium Duoneb 0.5 Mg-3 Mg/3 ML Soln Q4 prn Monitor O2 Sat's (Titrate) Cortef 20 Mg PO BID, Cozaar 25 MG PO Daily, Toprol XL 100 MGPO Daily, Lipitor 40 MP PO HS In your professional opinion, can you please clarify the acuity and type of CHF if known? [ ] Chronic Diastolic Heart Failure (preserved EF) [ ] Other, please specify [ ] Unable to determine (Template Last Revised: September 2020) MTDD
--- NOTE | 2022-09-01 19:16 | PN ---
PROGRESS NOTE ADDENDUM: Chronic hypoxemic respiratory failure, atrial fibrillation, obstructive sleep apnea, O2 dependent chronic obstructive pulmonary disease, acute on chronic diastolic heart failure. MMODL / IJN: [id number] /
== END 2022-08-29 16:24 | disposition home or self-care (01) | DRG 100 ==
LOC: EC 12:06 → 3SCARD 16:18 → 4SSUR 08-25 08:36
PROVIDERS: ADMIT Family Medicine; ATTEND Family Medicine
DX: G40.909 Epilepsy, unspecified, not intractable, without status epilepticus (principal); I50.33 Acute on chronic diastolic (congestive) heart failure; J44.1 Chronic obstructive pulmonary disease with (acute) exacerbation; E27.40 Unspecified adrenocortical insufficiency; J96.11 Chronic respiratory failure with hypoxia; E87.5 Hyperkalemia; M79.7 Fibromyalgia; N28.9 Disorder of kidney and ureter, unspecified; E11.43 Type 2 diabetes mellitus with diabetic autonomic (poly)neuropathy; K31.84 Gastroparesis; E05.90 Thyrotoxicosis, unspecified without thyrotoxic crisis or storm; I95.1 Orthostatic hypotension; I48.0 Paroxysmal atrial fibrillation; G47.33 Obstructive sleep apnea (adult) (pediatric); E78.5 Hyperlipidemia, unspecified; I11.0 Hypertensive heart disease with heart failure; G20 Parkinson's disease; E11.41 Type 2 diabetes mellitus with diabetic mononeuropathy; G57.93 Unspecified mononeuropathy of bilateral lower limbs; I49.5 Sick sinus syndrome; F32.A Depression, unspecified; F41.9 Anxiety disorder, unspecified; G89.4 Chronic pain syndrome; M81.0 Age-related osteoporosis without current pathological fracture; K21.9 Gastro-esophageal reflux disease without esophagitis; L40.8 Other psoriasis; D64.9 Anemia, unspecified; Z96.611 Presence of right artificial shoulder joint; R29.6 Repeated falls; Z95.0 Presence of cardiac pacemaker; Z90.81 Acquired absence of spleen; Z87.891 Personal history of nicotine dependence; Z87.440 Personal history of urinary (tract) infections; Z86.711 Personal history of pulmonary embolism; Z85.51 Personal history of malignant neoplasm of bladder; Z79.899 Other long term (current) drug therapy; Z79.4 Long term (current) use of insulin; Z79.01 Long term (current) use of anticoagulants; Z86.79 Personal history of other diseases of the circulatory system; Z86.19 Personal history of other infectious and parasitic diseases; Z99.81 Dependence on supplemental oxygen; Z88.4 Allergy status to anesthetic agent; Z88.8 Allergy status to other drugs, medicaments and biological substances; Z88.5 Allergy status to narcotic agent
CPT/HCPCS: 36415; 70450; 71045; 80048; 80053; 80177; 81001; 83735; 84439; 84443; 85025; 93005; 94760; 95816; 96361; 96372; 96374; 99285

== ENCOUNTER 2022-09-01 12:00 | Emergency (ER) | payer MEDICARE, OTHER ==
[2022-09-01 13:05] LABS: Basophils % (A) 0 %; Eosinophils # (A) 0.1 k/uL (0-0.7); Eosinophils % (A) 1 %; HCT 37.3 % (34.0-46.0); HGB 11.7 gm/dL (11.4-16.0); Lymphocytes # (A) 1.7 k/uL (1.0-4.8); Lymphocytes % (A) 27 %; MCH 28.6 pg (25.0-35.0); MCHC 31.5 g/dL (31.0-37.0); MCV 90.9 fL (80.0-100.0); Mean Platelet Volume 8.3; Monocytes # (A) 0.4 k/uL (0-1.0); Monocytes % (A) 7 %; Neutrophils % (A) 64 %; Platelet Count 299 k/uL (150-450); RBC 4.11 m/uL (3.80-5.40); RDW 13.7 % (11.5-15.5); WBC 6.3 k/uL (3.8-10.6)
--- NOTE | 2022-09-01 13:11 | XR ---
EXAMINATION TYPE: XR chest 2V DATE OF EXAM: 09/01/2022 1:06 PM COMPARISON: Chest radiographs from 08/24/2022. TECHNIQUE: XR chest 2V Frontal and lateral views of the chest. CLINICAL INDICATION:Female, 77 years old with history of Weakness; FINDINGS: Lungs/Pleura: There is no evidence of pleural effusion, focal consolidation, or pneumothorax. Pulmonary vascularity: Unremarkable. Heart/mediastinum: Cardiomediastinal silhouette is enlarged and stable. Two lead cardiac conduction d evice overlying the left hemithorax with lead tips projecting over the right ventricle and right atri um. Musculoskeletal: Multiple level degenerative disc disease changes seen throughout the spine. Parasiti zation of right proximal humerus fixation. Chronic widening of the right AC joint. IMPRESSION: 1. No acute cardiopulmonary disease/process. 2. Persistent cardiomegaly.
[2022-09-01 13:18] LABS: Partial Thromboplastin Time 22.9 sec (22.0-30.0); Prothrombin Time 10.3 sec (9.0-12.0)
[2022-09-01 13:22] LABS: ALT 23 U/L (4-34); AST 22 U/L (14-36); African American GFR (CKD) >90 (>60 ml/min/1.73 sqM); Albumin 3.3 g/dL (3.5-5.0); Alkaline Phosphatase 33 U/L (38-126); Anion Gap 2 mmol/L; Blood Urea Nitrogen 16 mg/dL (7-17); Calcium 8.6 mg/dL (8.4-10.2); Carbon Dioxide 30 mmol/L (22-30); Chloride 106 mmol/L (98-107); Glucose 164 mg/dL (74-99); Magnesium 1.7 mg/dL (1.6-2.3); Non-African American GFR(CKD) 86 (>60 ml/min/1.73 sqM); Potassium 4.3 mmol/L (3.5-5.1); Sodium 138 mmol/L (137-145); Total Bilirubin 0.4 mg/dL (0.2-1.3); Total Protein 5.5 g/dL (6.3-8.2)
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
[2022-09-01 14:44] LABS: Appearance,Urine Clear (Clear); Bilirubin,Urine Negative (Negative); Blood,Urine Negative (Negative); Color,Urine Yellow; Glucose,Urine (UA) Negative (Negative); Hyaline Casts,Urine 1 /lpf (0-2); Ketones,Urine 1+ (Negative); Leukocyte Esterase,Urine Moderate (Negative); Mucus,Urine Rare /hpf; Nitrite,Urine Negative (Negative); Protein,Urine Trace (Negative); RBC,Urine 2 /hpf (0-5); Specific Gravity,Urine 1.029 (1.001-1.035); Squamous Epithelial Cell,Urine <1 /hpf (0-4); WBC,Urine 18 /hpf (0-5)
[2022-09-01] MEDS ORDERED: HYDROCORTISONE TOPICAL PRN (14:50)
[2022-09-01] MEDS ORDERED: clonazePAM 1 MG TAB PO PRN (14:50)
[2022-09-01] MEDS ORDERED: NON FORMULARY DRUG (Dulaglutide [Trulicity] 1.5 MG/0.5 ML Pen.Injctr) SQ SCH (15:00)
[2022-09-01 15:17] LABS: T4, Free (Free Thyroxine) 1.86 ng/dL (0.78-2.19)
[2022-09-01 15:27] VITALS: BP 121/67; PULSE 60; RESP 18; TEMP 97.6
[2022-09-01] MEDS ORDERED: NON FORMULARY DRUG (Gabapentin [Gabapentin] 600 MG Tablet) PO SCH (16:00)
[2022-09-01] MEDS ORDERED: NON FORMULARY DRUG (Midodrine Hcl [Proamatine] 10 MG Tablet) PO SCH (16:00)
[2022-09-01] MEDS ORDERED: IPRATROPIUM-ALBUTEROL 3 ML NEB INHALATION SCH (16:00)
[2022-09-01] MEDS ORDERED: oxyCODONE-APAP 7.5-325MG 1 EACH TAB PO SCH (16:00)
[2022-09-01] MEDS ORDERED: CARBIDOPA-LEVODOPA 10-100 MG 1 EACH TAB PO SCH (16:00)
[2022-09-01] MEDS ORDERED: PANTOPRAZOLE 40 MG TABLET PO SCH (17:30)
[2022-09-01] MEDS ORDERED: DIVALPROEX 500 MG TABLET.DR PO SCH (21:00)
[2022-09-01] MEDS ORDERED: ATORVASTATIN 40 MG TAB PO SCH (21:00)
[2022-09-01] MEDS ORDERED: HYDROCORTISONE 20 MG TAB PO SCH (21:00)
[2022-09-02] MEDS ORDERED: RIVAROXABAN 20 MG TAB PO SCH (09:00)
[2022-09-02] MEDS ORDERED: methIMAzole 5 MG TAB PO SCH (09:00)
[2022-09-02] MEDS ORDERED: METOPROLOL SUCCINATE (ER) 100 MG TAB.ER.24H PO SCH (09:00)
[2022-09-02] MEDS ORDERED: ACYCLOVIR 400 MG PO SCH (09:00)
[2022-09-02] MEDS ORDERED: FLUoxetine HCL 20 MG CAP PO SCH (09:00)
[2022-09-02] MEDS ORDERED: NON FORMULARY DRUG (Clobazam [Clobazam] 10 MG Tablet) PO SCH (09:00)
[2022-09-02] MEDS ORDERED: LOSARTAN 25 MG TAB PO SCH (09:00)
== END 2022-09-01 15:38 | disposition other institution (70) ==
LOC: EC 12:00
DX: E87.20 Acidosis, unspecified (principal); R53.1 Weakness; E11.40 Type 2 diabetes mellitus with diabetic neuropathy, unspecified; E78.5 Hyperlipidemia, unspecified; F32.A Depression, unspecified; F41.9 Anxiety disorder, unspecified; I48.91 Unspecified atrial fibrillation; I50.9 Heart failure, unspecified; J44.9 Chronic obstructive pulmonary disease, unspecified; K21.9 Gastro-esophageal reflux disease without esophagitis; M19.90 Unspecified osteoarthritis, unspecified site; Z87.891 Personal history of nicotine dependence; Z79.4 Long term (current) use of insulin; Z79.899 Other long term (current) drug therapy; Z88.5 Allergy status to narcotic agent; Z88.8 Allergy status to other drugs, medicaments and biological substances; Z20.822 Contact with and (suspected) exposure to COVID-19
CPT/HCPCS: 36415; 71046; 80053; 81001; 83605; 83735; 83880; 84439; 84443; 84484; 85025; 85610; 85730; 87086; 87502; 87635; 93005; 99285

== ENCOUNTER 2022-09-23 09:27 | Emergency (ER) | payer MEDICARE, OTHER ==
[2022-09-23 09:34] VITALS: RESP 18; TEMP 98.3
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
[2022-09-23 11:06] VITALS: BP 154/80; PULSE 66
--- NOTE | 2022-09-23 11:12 | CT ---
EXAMINATION TYPE: CT pelvis wo con, CT hip LT wo con DATE OF EXAM: 09/23/2022 COMPARISON: Prior CT abdomen and pelvis July 06, 2022 HISTORY: fall, pelvic and left hip pain CT DLP: 848.5 mGycm Automated exposure control for dose reduction was used. FINDINGS: No acute fracture or dislocation the pelvis or either hip. There is persistent moderate narrowing and acetabular spurring in both hips. Sacroiliac joints show [id number] narrowing bilaterally. Pub ic symphysis remains intact. Pelvic structures show no obvious abnormality. No concerning pelvic flui d collection is seen. Images of left hip show no groin hernia or adenopathy. No suspicious focal flui d collection or hematoma is seen. IMPRESSION: No acute fracture or dislocation in pelvis or left hip
== END 2022-09-23 12:14 | disposition home or self-care (01) ==
LOC: EC 09:27
DX: S70.02XA Contusion of left hip, initial encounter (principal); E11.40 Type 2 diabetes mellitus with diabetic neuropathy, unspecified; E78.5 Hyperlipidemia, unspecified; F32.A Depression, unspecified; F41.9 Anxiety disorder, unspecified; G47.33 Obstructive sleep apnea (adult) (pediatric); I48.91 Unspecified atrial fibrillation; I50.9 Heart failure, unspecified; J44.9 Chronic obstructive pulmonary disease, unspecified; K21.9 Gastro-esophageal reflux disease without esophagitis; M19.90 Unspecified osteoarthritis, unspecified site; Z79.4 Long term (current) use of insulin; Z79.899 Other long term (current) drug therapy; Z87.891 Personal history of nicotine dependence; Z88.5 Allergy status to narcotic agent; Z91.018 Allergy to other foods; W19.XXXA Unspecified fall, initial encounter; Y92.129 Unspecified place in nursing home as the place of occurrence of the external cause
CPT/HCPCS: 72192; 99284

== ENCOUNTER 2022-12-24 01:35 | Inpatient (IN) | payer MEDICARE, OTHER ==
[2022-12-24] MEDS ORDERED: HYDROcodone/APAP 7.5-325MG 1 EACH TAB PO ONE (02:51)
--- NOTE | 2022-12-24 04:11 | ED ---
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 Natriuret Pep pg/mL Total Protein (6.3-8.2) g/dL Albumin (3.5-5.0) g/dL Globulin (1.6-3.3) g/dL Albumin/Globulin Ratio (1.60-3.17) g/dL Procalcitonin (0.02-0.09) ng/mL Influenza Type A (PCR) (Not Detectd) Influenza Type B (PCR) (Not Detectd) Legionella Source Urine Legionella Ag (Negative) RSV (PCR) (Not Detectd) SARS-CoV-2 (PCR) (Not Detectd) 12/25/22 12/25/22 Range/Units 07:39 07:39 WBC (3.8-10.6) k/uL RBC (3.80-5.40) m/uL Hgb (11.4-16.0) gm/dL Hct (34.0-46.0) % MCV (80.0-100.0) fL MCH (25.0-35.0) pg MCHC (31.0-37.0) g/dL RDW (11.5-15.5) % Plt Count (150-450) k/uL MPV Immature Gran % (Auto) % Absolute Nucleated RBC (0.00-0.00) X 10*3/uL Neutrophils % % Lymphocytes % % Monocytes % % Eosinophils % % Basophils % % Immature Gran # (0.00-0.04) X 10*3/uL Neutrophils # (1.3-7.7) k/uL Lymphocytes # (1.0-4.8) k/uL Monocytes # (0-1.0) k/uL Eosinophils # (0-0.7) k/uL Basophils # (0-0.2) k/uL NRBC/100 WBC Diff (0.0-0.0) /100 WBCS Hypochromasia Anisocytosis D-Dimer (<0.60) mg/L FEU Sodium (137-145) mmol/L Potassium (3.5-5.1) mmol/L Chloride (98-107) mmol/L Carbon Dioxide (22-30) mmol/L Anion Gap mmol/L BUN (7-17) mg/dL Creatinine (0.52-1.04) mg/dL Est GFR (CKD-EPI)AfAm (>60 ml/min/1.73 sqM) Est GFR (CKD-EPI)NonAf (>60 ml/min/1.73 sqM) BUN/Creatinine Ratio (12.00-20.00) Ratio Glucose (74-99) mg/dL POC Glucose (mg/dL) (70-110) mg/dL POC Glu Refrigerating Engineer ID Estimated Ave Glu mg/dL Hemoglobin A1c (0.0-6.0) % Lactic Ac Sepsis Rflx Plasma Lactic Acid Josesito (0.7-2.0) mmol/L Calcium (8.4-10.2) mg/dL Total Bilirubin (0.2-1.3) mg/dL AST (14-36) U/L ALT (4-34) U/L Alkaline Phosphatase (38-126) U/L Troponin I (0.000-0.034) ng/mL C-Reactive Protein 3.9 H (<1.0) mg/dL NT-Pro-B Natriuret Pep pg/mL Total Protein (6.3-8.2) g/dL Albumin (3.5-5.0) g/dL Globulin (1.6-3.3) g/dL Albumin/Globulin Ratio (1.60-3.17) g/dL Procalcitonin 0.13 H (0.02-0.09) ng/mL Influenza Type A (PCR) (Not Detectd) Influenza Type B (PCR) (Not Detectd) Legionella Source Urine Legionella Ag (Negative) RSV (PCR) (Not Detectd) SARS-CoV-2 (PCR) (Not Detectd) - EKG Data EKG shows normal: sinus rhythm, axis (Normal), intervals, QRS complexes (Normal) Rate: tachycardia (Rate 101 bpm) Disposition Clinical Impression: COPD (chronic obstructive pulmonary disease), Pneumonia, COVID-19 Disposition: ADMITTED IP TO THIS HOSP Condition: Fair
--- NOTE | 2022-12-24 06:00 | XR ---
EXAM: XR Chest, 2 Views CLINICAL HISTORY: ITS.REASON XR Reason: fever TECHNIQUE: Frontal and lateral views of the chest. COMPARISON: 09/01/2022 FINDINGS: Lungs: Low lung volumes with pulmonary vascular congestion and atelectasis. Pleural space: No pleural effusion. No pneumothorax. Heart: Cardiomegaly. Bones/joints: Unremarkable. No fracture or malalignment. Tubes, lines and devices: Pacemaker leads in place. IMPRESSION: 1. Low lung volumes with pulmonary vascular congestion and atelectasis. Difficult to exclude pneumonia. 2. Cardiomegaly.
[2022-12-24 06:03] LABS: Albumin 3.6 g/dL (3.5-5.0); Calcium 8.8 mg/dL (8.4-10.2); Potassium 4.7 mmol/L (3.5-5.1); Total Bilirubin 0.6 mg/dL (0.2-1.3)
[2022-12-24 06:15] LABS: Anisocytosis Slight; Basophils # (A) 0.1 k/uL (0-0.2); Basophils % (A) 1 %; Eosinophils # (A) 0.1 k/uL (0-0.7); Eosinophils % (A) 1 %; HCT 40.7 % (34.0-46.0); HGB 12.4 gm/dL (11.4-16.0); Hypochromasia Moderate; Lymphocytes % (A) 22 %; MCH 27.6 pg (25.0-35.0); MCHC 30.5 g/dL (31.0-37.0); MCV 90.7 fL (80.0-100.0); Monocytes # (A) 1.4 k/uL (0-1.0); Monocytes % (A) 15 %; Neutrophils # (A) 5.7 k/uL (1.3-7.7); Neutrophils % (A) 61 %; Platelet Count 255 k/uL (150-450); RBC 4.49 m/uL (3.80-5.40); WBC 9.4 k/uL (3.8-10.6)
[2022-12-24] MEDS ORDERED: SODIUM CHLORIDE 0.9% 1,000 ML IV STA (06:44)
[2022-12-24] MEDS ORDERED: SODIUM CHLORIDE 0.9% 1,000 ML IV ONE (06:44)
[2022-12-24] MEDS ORDERED: AZITHROMYCIN 500 MG TAB PO STA (06:46)
[2022-12-24] MEDS ORDERED: PNEUMONIA PROTOCOL UTILIZED 1 EACH MISC PO PRN (06:53)
[2022-12-24] MEDS ORDERED: HYDROcodone/APAP 7.5-325MG 1 EACH TAB PO PRN (11:17)
[2022-12-24] MEDS ORDERED: guaiFENesin SYRUP 100MG/5ML 200 MG/10 ML CUP PO PRN (13:29)
[2022-12-24] MEDS ORDERED: DEXTROSE 50% SYRINGE 50 ML IVP PRN ×2 (13:34)
[2022-12-24] MEDS: oxyCODONE-APAP 10-325MG 1 EACH TAB PO SCH ×2 (13:54→19:09)
[2022-12-24 16:29] LABS: Glucose,Whole Blood 158 mg/dL (70-110)
[2022-12-24] MEDS: INSULIN ASPART (NovoLOG) 100 UNIT/ML VIAL SQ SCH ×2 (17:12→21:51)
[2022-12-24] MEDS: PANTOPRAZOLE 40 MG TABLET PO SCH (17:14)
[2022-12-24] MEDS: levETIRAcetam 500 MG TAB PO SCH (17:14)
[2022-12-24] MEDS: ALBUTEROL HFA INHALER INHALATION SCH (19:48)
[2022-12-24] MEDS: methylPREDNISolone SOD SUCCI 40 MG/ML 1 ML VIAL IV SCH ×2 (19:48→23:30)
[2022-12-24] MEDS ORDERED: IPRATROPIUM-ALBUTEROL 3 ML NEB INHALATION SCH ×2 (20:00)
[2022-12-24 20:34] LABS: Glucose,Whole Blood 154 mg/dL (70-110)
--- NOTE | 2022-12-24 21:33 | HP ---
HISTORY AND PHYSICAL HISTORY OF PRESENT ILLNESS: This 77-year-old white female came in with altered mental status from the care home, found to have positive COVID. She was treated with standard COVID protocol. She had altered mental status, metabolic encephalopathy secondary to COVID. She has had low- grade fevers over the last 2 days and altered mental status. Not really severe diarrhea, some cough. HOME MEDICATIONS: See list, reviewed. ALLERGIES: See list, reviewed. REVIEW OF SYSTEMS: A 14-point review of systems, weakness, fatigue, cough, congestion, altered mental status. Otherwise negative. PAST MEDICAL HISTORY: Atrial fibrillation, A flutter, asthma, COPD, cancer, angina, heart failure, COPD, diabetes mellitus, fibromyalgia, GERD, dyslipidemia, seizures, adrenal insufficiency, history of SVT, pulmonary embolism. She wears 4 L oxygen for hypoxemia, type 2 diabetes mellitus. She wears CPAP. She had a history of PE. FAMILY HISTORY: Father with myocardial infarction, mother with respiratory disorder. PHYSICAL EXAMINATION: GENERAL: Weak, fatigued white female, lethargic. She wakes up and gives appropriate answers. She falls back to sleep. CARDIOVASCULAR: S1, S2. LUNGS: Scattered rhonchi and wheeze. Decreased breath sounds. ABDOMEN: Soft. HEMATOLOGIC: 2+ edema. NEUROLOGIC: Cranial nerves intact. PSYCH: Fair mood and affect. OPHTHALMOLOGIC: Pupils equal, round, reactive. She wears glasses. She has a 4 L oxygen. VITAL SIGNS: Blood pressure is 120 is 130s over 70s, pulse is above 101, O2 saturation on 4 L is 92, and temp 99.8. LABORATORY DATA: Sodium 136, potassium 4.7. EKG sinus rhythm. ASSESSMENT: 1. COPD. 2. Pneumonia. 3. COVID-19. 4. Adrenal insufficiency. 5. COPD. 6. Degenerative disk disease. 7. Adrenal insufficiency. 8. Orthostatic hypotension. 9. History of seizure disorder. 10.Type 2 diabetes mellitus. Home medications will be continued. Treat for COVID, get Pulmonary and Infectious Disease. Please see further orders. MMODL / IJN: [id number] /
[2022-12-24] MEDS: MIDODRINE 5 MG TAB PO SCH (21:50)
[2022-12-24] MEDS: LORazepam 1 MG TAB PO PRN (21:51)
[2022-12-24] MEDS: DIVALPROEX 500 MG TABLET.DR PO SCH (21:51)
[2022-12-24] MEDS: CARBIDOPA-LEVODOPA 10-100 MG 1 EACH TAB PO SCH (21:51)
[2022-12-24] MEDS: CEFDINIR 300 MG CAP PO SCH (21:51)
[2022-12-24] MEDS: HYDROCORTISONE 20 MG TAB PO SCH (21:51)
[2022-12-24] MEDS: GABAPENTIN 300 MG CAP PO SCH (21:51)
[2022-12-24] MEDS: ATORVASTATIN 40 MG TAB PO SCH (21:51)
[2022-12-25] MEDS: KETOROLAC 15 MG/ML 1 ML VIAL IVP PRN (00:20)
[2022-12-25] MEDS ORDERED: ACETAMINOPHEN TAB 325 MG TAB PO PRN (01:49)
[2022-12-25 02:08] LABS: Glucose,Whole Blood 217 mg/dL (70-110)
[2022-12-25] MEDS: DILTIAZEM 125 MG in SODIUM CHLORIDE 0.9% 100 ML IV SCH ×2 (02:26→16:12)
[2022-12-25] MEDS ORDERED: DILTIAZEM DRIP BOLUS FROM BAG 1 MG SOLN IV ONE (04:41)
[2022-12-25 05:58] LABS: Glucose,Whole Blood 321 mg/dL (70-110)
[2022-12-25] MEDS: methIMAzole 5 MG TAB PO SCH (06:10)
[2022-12-25] MEDS: PANTOPRAZOLE 40 MG TABLET PO SCH ×2 (06:10→16:18)
[2022-12-25] MEDS: INSULIN ASPART (NovoLOG) 100 UNIT/ML VIAL SQ SCH ×4 (06:10→20:54)
--- NOTE | 2022-12-25 07:24 | XR ---
EXAMINATION TYPE: XR chest 1V portable DATE OF EXAM: 12/25/2022 Comparison: 12/24/2022 Clinical History: 77-year-old female pneumonia Findings: Plate and screw fixation proximal right humerus. Left anterior chest wall pacemaker generator with ri ght ventricular leads. Heart mildly enlarged. Slightly low lung volumes. Small bilateral pleural effusions with bibasilar op acities persist. Impression: Hypoventilatory changes. Mild cardiomegaly along with small effusions and bibasilar areas of atelecta sis and/or consolidation. Overall similar appearance.
[2022-12-25] MEDS ORDERED: LOSARTAN 25 MG TAB PO SCH (09:00)
[2022-12-25 09:03] LABS: Basophils # (A) 0.07 X 10*3/uL (0.00-0.10); Basophils % (A) 0.8 %; Eosinophils # (A) 0 X 10*3/uL (0.04-0.35); Eosinophils % (A) 0 %; HCT 42.7 % (37.2-46.3); Immature Grans, Automated 0.7 %; Lymphocytes # (A) 1.57 X 10*3/uL (0.90-5.00); Lymphocytes % (A) 18.4 %; MCH 27.3 pg (27.0-32.0); MCHC 30.4 g/dL (32.0-37.0); MCV 89.7 fL (80.0-97.0); Mean Platelet Volume 10.7 fL (9.5-12.2); Monocytes # (A) 0.61 X 10*3/uL (0.20-1.00); Monocytes % (A) 7.2 %; NRBC Per 100 WBC 0 /100 WBCS (0.0-0.0); Neutrophils # (A) 6.22 X 10*3/uL (1.80-7.70); Neutrophils % (A) 72.9 %; Platelet Count 251 X 10*3/uL (140-440); RBC 4.76 X 10*6/uL (4.10-5.20); RDW 17.2 % (11.5-14.5); WBC 8.53 X 10*3/uL (4.50-10.00)
[2022-12-25 09:20] LABS: African American GFR (CKD) 63.8 (60.0-200.0); Albumin 3.7 g/dL (3.8-4.9); Albumin/Globulin Ratio 1.68 (1.60-3.17); Anion Gap 13.2 mmol/L (10.00-18.00); BUN/Creat Ratio 11.7 Ratio (12.00-20.00); Blood Urea Nitrogen 11.7 mg/dL (9.0-27.0); Carbon Dioxide 27.8 mmol/L (20.0-27.5); Globulin 2.2 g/dL (1.6-3.3); Non-African American GFR(CKD) 55.1 (60.0-200.0); Potassium 4.6 mmol/L (3.5-5.5); Total Bilirubin 0.4 mg/dL (0.30-1.20); Total Protein 5.9 g/dL (6.2-8.2)
[2022-12-25] MEDS: CEFDINIR 300 MG CAP PO SCH (09:30)
[2022-12-25] MEDS: MIDODRINE 5 MG TAB PO SCH ×3 (09:30→20:20)
[2022-12-25] MEDS: levETIRAcetam 500 MG TAB PO SCH ×2 (09:30→20:20)
[2022-12-25] MEDS: methylPREDNISolone SOD SUCCI 40 MG/ML 1 ML VIAL IV SCH ×3 (09:31→23:36)
[2022-12-25] MEDS: FLUoxetine HCL 20 MG CAP PO SCH (09:31)
[2022-12-25] MEDS: METOPROLOL SUCCINATE (ER) 100 MG TAB.ER.24H PO SCH (09:31)
[2022-12-25] MEDS: DILTIAZEM CD 180 MG CAP.ER.24H PO SCH (09:31)
[2022-12-25] MEDS: oxyCODONE-APAP 10-325MG 1 EACH TAB PO SCH ×3 (09:31→20:20)
[2022-12-25] MEDS: GABAPENTIN 300 MG CAP PO SCH ×3 (09:31→20:20)
[2022-12-25] MEDS: AZITHROMYCIN 500 MG TAB PO SCH (09:31)
[2022-12-25] MEDS: DIVALPROEX 500 MG TABLET.DR PO SCH ×2 (09:31→20:19)
[2022-12-25] MEDS: RIVAROXABAN 20 MG TAB PO SCH (09:31)
[2022-12-25] MEDS: HYDROCORTISONE 20 MG TAB PO SCH ×2 (09:34→20:20)
[2022-12-25] MEDS: CARBIDOPA-LEVODOPA 10-100 MG 1 EACH TAB PO SCH ×3 (09:34→20:19)
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
[2022-12-25 11:35] LABS: Glucose,Whole Blood 237 mg/dL (70-110)
[2022-12-25] MEDS: ALBUTEROL HFA INHALER INHALATION SCH ×2 (12:09→21:11)
--- NOTE | 2022-12-25 13:42 | CT ---
CT CHEST FOR PULMONARY EMBOLISM. EXAMINATION TYPE: CT angio chest DATE OF EXAM: 12/25/2022 INDICATION: Covid, elevated d dimer CT DLP: 638.8 mGycm, Automated exposure control for dose reduction was used. CONTRAST: Patient injected with 100 mL of Isovue 300. COMPARISON: 12/08/2021 TECHNIQUE: CT of the chest is performed on a spiral scan at 2 mm thick sections. Study is performed with intravenous contrast timed for evaluation for pulmonary embolism. This will limit additional po rtions of the evaluation. 3-D MIP images reconstructed by the technologist are reviewed on the compu ter in the coronal and sagittal planes. FINDINGS: No persistent filling defects to suggest an acute pulmonary embolism are evident. No mediastinal or hilar adenopathy enlarged by CT criteria is evident. The ascending aorta diameter at the level of the main pulmonary artery is 3.8 cm. The main pulmonary artery diameter at the bifur cation is 2.0 cm. There is some dependent lung infiltrates, correlate for atelectasis. Pneumonia could be considered. Limited CT section through the upper abdomen are unremarkable. IMPRESSIONS: 1. Suggestion of compressive atelectasis within the dependent lung bases. 2. No suspicious change to suggest acute pulmonary embolism.
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
[2022-12-25 16:28] LABS: Glucose,Whole Blood 370 mg/dL (70-110)
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
[2022-12-25 20:00] LABS: Glucose,Whole Blood 415 mg/dL (70-110)
[2022-12-25] MEDS: ATORVASTATIN 40 MG TAB PO SCH (20:19)
[2022-12-26] MEDS: DILTIAZEM 125 MG in SODIUM CHLORIDE 0.9% 100 ML IV SCH ×2 (00:15→16:55)
[2022-12-26 05:59] LABS: Glucose,Whole Blood 416 mg/dL (70-110)
[2022-12-26] MEDS: INSULIN ASPART (NovoLOG) 100 UNIT/ML VIAL SQ SCH ×4 (06:27→21:26)
[2022-12-26] MEDS: PANTOPRAZOLE 40 MG TABLET PO SCH ×2 (06:27→17:00)
[2022-12-26] MEDS: methIMAzole 5 MG TAB PO SCH (06:27)
--- NOTE | 2022-12-26 06:29 | PN ---
PROGRESS NOTE SUBJECTIVE: This 77-year-old white female admitted with COVID-19, community-acquired pneumonia. CT of the chest was done. No PE was found. The patient was treated for COVID pneumonia. Patient is much better, less mentally confused. OBJECTIVE: CARDIOVASCULAR: S1, S2. LUNGS: Scattered rales and rhonchi. HEMATOLOGY: Negative for Homans. PSYCH: Fair mood and affect. ASSESSMENT: Community-acquired pneumonia, hypoxemic respiratory distress, COPD. Prognosis is guarded. Continue with PT, O2, IV fluids. Prognosis is guarded. Follow up in next 24 to 48 hours. MMODL / IJN: [id number] /
[2022-12-26 08:04] LABS: Basophils % (A) 0 %; Eosinophils % (A) 0 %; HCT 45.5 % (34.0-46.0); HGB 12.8 gm/dL (11.4-16.0); Hypochromasia Marked; Lymphocytes # (A) 1.1 k/uL (1.0-4.8); Lymphocytes % (A) 14 %; MCH 26.3 pg (25.0-35.0); MCHC 28.2 g/dL (31.0-37.0); MCV 93.2 fL (80.0-100.0); Mean Platelet Volume 8.9; Monocytes # (A) 0.3 k/uL (0-1.0); Monocytes % (A) 4 %; Neutrophils # (A) 6.2 k/uL (1.3-7.7); Neutrophils % (A) 81 %; Platelet Count 282 k/uL (150-450); RBC 4.88 m/uL (3.80-5.40); RDW 15.8 % (11.5-15.5); WBC 7.7 k/uL (3.8-10.6)
[2022-12-26] MEDS: methylPREDNISolone SOD SUCCI 40 MG/ML 1 ML VIAL IV SCH ×2 (08:23→16:59)
[2022-12-26] MEDS: CARBIDOPA-LEVODOPA 10-100 MG 1 EACH TAB PO SCH ×3 (08:24→21:25)
[2022-12-26] MEDS: GABAPENTIN 300 MG CAP PO SCH ×3 (08:24→21:25)
[2022-12-26] MEDS: ASCORBIC ACID 500 MG TAB PO SCH (08:24)
[2022-12-26] MEDS: HYDROCORTISONE 20 MG TAB PO SCH ×2 (08:24→21:25)
[2022-12-26] MEDS: RIVAROXABAN 20 MG TAB PO SCH (08:25)
[2022-12-26] MEDS: MIDODRINE 5 MG TAB PO SCH ×3 (08:25→21:24)
[2022-12-26] MEDS: oxyCODONE-APAP 10-325MG 1 EACH TAB PO SCH ×3 (08:25→21:24)
[2022-12-26] MEDS: METOPROLOL SUCCINATE (ER) 100 MG TAB.ER.24H PO SCH (08:25)
[2022-12-26] MEDS: DIVALPROEX 500 MG TABLET.DR PO SCH ×2 (08:25→21:26)
[2022-12-26] MEDS: AZITHROMYCIN 500 MG TAB PO SCH (08:25)
[2022-12-26] MEDS: FLUoxetine HCL 20 MG CAP PO SCH (08:25)
[2022-12-26] MEDS: DILTIAZEM CD 180 MG CAP.ER.24H PO SCH (08:26)
[2022-12-26] MEDS: levETIRAcetam 500 MG TAB PO SCH ×2 (08:29→21:25)
[2022-12-26 08:53] LABS: Albumin 3.6 g/dL (3.5-5.0); C Reactive Protein 3.5 mg/dL (<1.0); Potassium 4.5 mmol/L (3.5-5.1); Total Bilirubin 0.4 mg/dL (0.2-1.3); Total Protein 6.1 g/dL (6.3-8.2)
[2022-12-26] MEDS: ALBUTEROL HFA INHALER INHALATION SCH ×2 (09:20→20:06)
[2022-12-26 10:52] VITALS: BMI 41.5
[2022-12-26 11:40] LABS: Glucose,Whole Blood 421 mg/dL (70-110)
--- NOTE | 2022-12-26 12:15 | P.PN ---
Subjective Progress Note Date: 12/26/22 Principal diagnosis: Fevers/ covid19 Patient is a 77-year-old female with a past medical history significant for COPD she is currently on 4 L nasal cannula at the long-term where the patient lives patient also have history of atrial fibrillation diabetes mellitus PE and atrial fibrillation the patient has been sent to the ER for evaluation of fever , patient tested positive for covid, patient did have a normal white count and procalcitonin was only 0.13, patient did have CT angiogram of the chest that was negative for PE tissue some compressive atelectasis but no groundglass opacities pathognomonic for covid 19 pneumonia. On today's evaluation that is 12/26/2022, the patient is afebrile patient is breathing slightly comfortably she is currently on a 4 L nasal cannula which is baseline for her, patient denies having any worsening cough or sputum production some nausea but no vomiting no abdominal pain or diarrhea Objective - Vital Signs Vital signs: Vital Signs Temp 98.1 F 12/26/22 04:00 Pulse 69 12/26/22 04:00 Resp 18 12/26/22 04:00 BP 122/76 12/26/22 04:00 Pulse Ox 96 12/26/22 04:00 FiO2 Intake & Output 12/25/22 12/26/22 12/26/22 18:59 06:59 18:59 Intake Total 408 113.417 240 Balance 408 113.417 240 Intake: Intake, IV Titration 50 113.417 Amount Diltiazem 125 mg In 113.417 Sodium Chloride 0.9% 100 ml @ 10 MG/HR 10 mls/hr IV .[id number] [facility] Rx#: [id number] cefTRIAXone 1 gm In 50 Sodium Chloride 0.9% 50 ml @ 100 mls/hr IVPB Q24HR [facility] Rx#:[id number] Oral 358 240 Other: Voiding Method Bedside Commode Bedside Commode # Voids 2 - Exam GENERAL DESCRIPTION: An elderly female lying in bed in no distress RESPIRATORY SYSTEM: Unlabored breathing , decreased breath sounds at bases HEART: S1 S2 regular rate and rhythm , ABDOMEN: Soft , no tenderness EXTREMITIES: No edema feet - Labs CBC & Chem 7: 12/26/22 07:53 12/26/22 07:53 Labs: Abnormal Lab Results - Last 24 Hours (Table) 12/25/22 12/25/22 12/25/22 Range/Units 07:39 11:33 16:26 MCHC (31.0-37.0) g/dL RDW (11.5-15.5) % Sodium (137-145) mmol/L Chloride (98-107) mmol/L Carbon Dioxide (22-30) mmol/L BUN (7-17) mg/dL Glucose (74-99) mg/dL POC Glucose (mg/dL) 237 H 370 H (70-110) mg/dL AST (14-36) U/L ALT (4-34) U/L Alkaline Phosphatase (38-126) U/L C-Reactive Protein (<1.0) mg/dL Total Protein (6.3-8.2) g/dL Procalcitonin 0.13 H (0.02-0.09) ng/mL 12/25/22 12/26/22 12/26/22 Range/Units 19:59 05:56 07:53 MCHC 28.2 L (31.0-37.0) g/dL RDW 15.8 H (11.5-15.5) % Sodium (137-145) mmol/L Chloride (98-107) mmol/L Carbon Dioxide (22-30) mmol/L BUN (7-17) mg/dL Glucose (74-99) mg/dL POC Glucose (mg/dL) 415 H 416 H (70-110) mg/dL AST (14-36) U/L ALT (4-34) U/L Alkaline Phosphatase (38-126) U/L C-Reactive Protein (<1.0) mg/dL Total Protein (6.3-8.2) g/dL Procalcitonin (0.02-0.09) ng/mL 12/26/22 Range/Units 07:53 MCHC (31.0-37.0) g/dL RDW (11.5-15.5) % Sodium 136 L (137-145) mmol/L Chloride 93 L (98-107) mmol/L Carbon Dioxide 31 H (22-30) mmol/L BUN 25 H (7-17) mg/dL Glucose 390 H (74-99) mg/dL POC Glucose (mg/dL) (70-110) mg/dL AST 51 H (14-36) U/L ALT 51 H (4-34) U/L Alkaline Phosphatase 29 L (38-126) U/L C-Reactive Protein 3.5 H (<1.0) mg/dL Total Protein 6.1 L (6.3-8.2) g/dL Procalcitonin (0.02-0.09) ng/mL Assessment and Plan (1) COVID-19 Current Visit: Yes Status: Acute Code(s): U07.1 - COVID-19 SNOMED Code(s): 790715806 Plan: 1patient presented to hospital with increasing shortness of breath cough did have a fever which is likely multifactorial more likely due to COVID-19 infection however the patient chest x-ray did not show typical features of COVID-19 infection the patient currently on 4 L nasal cannula which is baseline for her not requiring more oxygen and does not look toxic clinically doubt secondary bacterial pneumonia 2-keeping in mind elevated D-dimer patient did have CT angiogram of the chest that did not show any groundglass opacities associated with COVID-19 infection, some atelectasis Patient to continue with the steroid Xarelto , zinc ascorbic acid, no need for systemic antibodies or Remdisivir 4-droplet isolation respiratory support Time with Patient: Less than 30
[2022-12-26] MEDS ORDERED: NON FORMULARY DRUG (Dulaglutide [Trulicity] 1.5 MG/0.5 ML Pen.Injctr) SQ SCH (13:29)
--- NOTE | 2022-12-26 14:51 | P.PN ---
Subjective Progress Note Date: 12/26/22 HISTORY OF PRESENTING ILLNESS This is a 77-year-old female patient of Dr Leong with past medical history si gnificant for paroxysmal-fibrillation on Xarelto, sick sinus syndrome status post pacemaker implantation in 2013, COPD, hypothyroidism, adrenal insufficiency, hypertension, dyslipidemia, bladder cancer status post surgery, type 2 diabetes. We have been asked to see in consultation for afib/fllutter with RVR. Patient presents emergency department From [facility] to be evaluated regarding a fever and a cough for 2 days as well as shortness of breath. Apparently she had low pulse ox readings at the shelter. Patient denies having any chest pain. patient has been started on Cardizem drip at 10 mg per hour DIAGNOSTICS EKG sinus rhythm, telemetry showed atrial fibrillation up to 160s. W BC 8.5, hemoglobin 13, platelet count 251. Sodium 136, potassium 4.6,pro- calcitonin 0.16. Influenza A and influenza B, RSV, Legionella not detected. Covid 19 detected. Troponin negative 1. Lactic acid 2.9 and repeat at 1.2. chest x-ray 12/24: Low lung volumes with pulmonary vascular congestion and at electasis. Difficult to exclude pneumonia. Cardiomegaly. Chest x-ray12/25: Hypoventilatory changes. Mild cardiomegaly along with small effusions and bibasilar areas of atelectasis and/or consolidation. Overall similar appearance. CTA of the chest revealed compressive atelectasis within the dependent lung bases. No suspicious change to suggest acute pulmonary embolism. Most recent echocardiogram 06/2022: Normal LV systolic function, mild mitral regurgitation, enlarged left atrium. Cardiac catheterization in 01/2020 revealed normal coronary arteries home cardiac medications: Atorvastatin 40 mg at bedtime, losartan 12.5 mg daily, Toprol-XL 100 mg daily, Xarelto 20 mg daily. 12/26 Yesterday afternoon, patient converted to sinus rhythm and Cardizem drip was discontinued. Patient remains in Cardizem drip with rate controlled. She is currently on Cardizem oral 180 mg daily extended release. Blood pressure 110/78. Patient remains in isolation for Covid 19. PHYSICAL EXAMINATION CONSTITUTIONAL: No apparent distress. HEENT: Head is normocephalic. Pupils are equal, round. ASSESSMENT shortness of breath secondary to Covid 19 infection Paroxysmal-fibrillation on Xarelto, presented with RVR Sick sinus syndrome status post pacemaker implantation in 2013 COPD History of Hypothyroidism Adrenal insufficiency History of hypertension Dyslipidemia History of bladder cancer status post surgery Type 2 diabetes PLAN continue patient's home cardiac medications continue patient on oral Cardizem 180 mg daily No need to repeat echocardiogram as one was done in 07/09/2022 Cardiology will follow on an as-needed basis. Please reconsult for any new concerns. Patient will follow up with Dr. Leong at the time of discharge and 2-3 weeks. Nurse practitioner note has been reviewed by physician. Signing provider agrees with the documented findings, assessment, and plan of care. Objective - Vital Signs Vital signs: Vital Signs Temp 97.8 F 12/26/22 08:00 Pulse 91 12/26/22 08:00 Resp 18 12/26/22 08:00 BP 113/78 12/26/22 08:00 Pulse Ox 93 L 12/26/22 08:00 FiO2 Intake & Output 12/25/22 12/26/22 12/26/22 18:59 06:59 18:59 Intake Total 408 113.417 240 Balance 408 113.417 240 Intake: Intake, IV Titration 50 113.417 Amount Diltiazem 125 mg In 113.417 Sodium Chloride 0.9% 100 ml @ 10 MG/HR 10 mls/hr IV .[id number] [facility] Rx#: [id number] cefTRIAXone 1 gm In 50 Sodium Chloride 0.9% 50 ml @ 100 mls/hr IVPB Q24HR [facility] Rx#:[id number] Oral 358 240 Other: Voiding Method Bedside Commode Bedside Commode Bedside Commode # Voids 2 - Labs CBC & Chem 7: 12/26/22 07:53 12/26/22 07:53 Labs: Abnormal Lab Results - Last 24 Hours (Table) 12/25/22 12/25/22 12/25/22 Range/Units 07:39 11:33 16:26 MCHC (31.0-37.0) g/dL RDW (11.5-15.5) % Sodium (137-145) mmol/L Chloride (98-107) mmol/L Carbon Dioxide (22-30) mmol/L BUN (7-17) mg/dL Glucose (74-99) mg/dL POC Glucose (mg/dL) 237 H 370 H (70-110) mg/dL AST (14-36) U/L ALT (4-34) U/L Alkaline Phosphatase (38-126) U/L C-Reactive Protein (<1.0) mg/dL Total Protein (6.3-8.2) g/dL Procalcitonin 0.13 H (0.02-0.09) ng/mL 12/25/22 12/26/22 12/26/22 Range/Units 19:59 05:56 07:53 MCHC 28.2 L (31.0-37.0) g/dL RDW 15.8 H (11.5-15.5) % Sodium (137-145) mmol/L Chloride (98-107) mmol/L Carbon Dioxide (22-30) mmol/L BUN (7-17) mg/dL Glucose (74-99) mg/dL POC Glucose (mg/dL) 415 H 416 H (70-110) mg/dL AST (14-36) U/L ALT (4-34) U/L Alkaline Phosphatase (38-126) U/L C-Reactive Protein (<1.0) mg/dL Total Protein (6.3-8.2) g/dL Procalcitonin (0.02-0.09) ng/mL 12/26/22 Range/Units 07:53 MCHC (31.0-37.0) g/dL RDW (11.5-15.5) % Sodium 136 L (137-145) mmol/L Chloride 93 L (98-107) mmol/L Carbon Dioxide 31 H (22-30) mmol/L BUN 25 H (7-17) mg/dL Glucose 390 H (74-99) mg/dL POC Glucose (mg/dL) (70-110) mg/dL AST 51 H (14-36) U/L ALT 51 H (4-34) U/L Alkaline Phosphatase 29 L (38-126) U/L C-Reactive Protein 3.5 H (<1.0) mg/dL Total Protein 6.1 L (6.3-8.2) g/dL Procalcitonin (0.02-0.09) ng/mL Microbiology - Last 24 Hours (Table) 12/24/22 06:40 Blood Culture - Preliminary Blood 12/24/22 06:55 Blood Culture - Preliminary Blood
[2022-12-26 16:29] LABS: Glucose,Whole Blood 467 mg/dL (70-110)
[2022-12-26] MEDS ORDERED: DEXTROSE 50% SYRINGE 50 ML IVP PRN ×2 (18:08)
[2022-12-26 20:01] LABS: Glucose,Whole Blood 441 mg/dL (70-110)
[2022-12-26] MEDS: ATORVASTATIN 40 MG TAB PO SCH (21:24)
[2022-12-26] MEDS: LORazepam 1 MG TAB PO PRN (21:30)
--- NOTE | 2022-12-26 23:14 | PN ---
PROGRESS NOTE SUBJECTIVE: This is a 77-year-old white female, admitted with COVID-19 infection, metabolic encephalopathy, hypoxemic respiratory failure. OBJECTIVE: GENERAL: She is more awake and alert. VITAL SIGNS: She is saturating low 90s on 4 L. Temperature 98, pulse 78, respiratory rate 16 to 18. CARDIOVASCULAR: S1, S2. LUNGS: Decreased breath sounds x4. She has compressive atelectasis in lung bases. No PE. GI: Soft. HEMATOLOGY: Negative for Homans. PSYCH: Fair mood and affect. She is more alert and oriented x3. PROGNOSIS: Guarded. Possible discharge back to rehab center in next day or 2 if cleared by all the specialists. MMODL / IJN: [id number] /
[2022-12-27] MEDS: methylPREDNISolone SOD SUCCI 40 MG/ML 1 ML VIAL IV SCH ×3 (00:55→15:11)
[2022-12-27 06:08] LABS: Glucose,Whole Blood 371 mg/dL (70-110)
[2022-12-27] MEDS: PANTOPRAZOLE 40 MG TABLET PO SCH ×2 (06:53→18:04)
[2022-12-27] MEDS: methIMAzole 5 MG TAB PO SCH (06:53)
[2022-12-27] MEDS: INSULIN ASPART (NovoLOG) 100 UNIT/ML VIAL SQ SCH ×7 (06:54→20:56)
[2022-12-27] MEDS: ALBUTEROL HFA INHALER INHALATION SCH ×2 (07:40→20:20)
[2022-12-27] MEDS: METOPROLOL SUCCINATE (ER) 100 MG TAB.ER.24H PO SCH (09:23)
[2022-12-27] MEDS: AZITHROMYCIN 500 MG TAB PO SCH (09:23)
[2022-12-27] MEDS: ASCORBIC ACID 500 MG TAB PO SCH (09:23)
[2022-12-27] MEDS: levETIRAcetam 500 MG TAB PO SCH ×2 (09:23→20:55)
[2022-12-27] MEDS: oxyCODONE-APAP 10-325MG 1 EACH TAB PO SCH ×3 (09:26→20:53)
[2022-12-27] MEDS: GABAPENTIN 300 MG CAP PO SCH ×3 (09:26→20:55)
[2022-12-27] MEDS: MIDODRINE 5 MG TAB PO SCH ×3 (09:26→20:55)
[2022-12-27] MEDS: DIVALPROEX 500 MG TABLET.DR PO SCH ×2 (09:26→20:53)
[2022-12-27] MEDS: DILTIAZEM CD 180 MG CAP.ER.24H PO SCH (09:27)
[2022-12-27] MEDS: FLUoxetine HCL 20 MG CAP PO SCH (09:27)
[2022-12-27] MEDS: RIVAROXABAN 20 MG TAB PO SCH (09:27)
[2022-12-27] MEDS: CARBIDOPA-LEVODOPA 10-100 MG 1 EACH TAB PO SCH ×3 (09:28→20:55)
[2022-12-27] MEDS: HYDROCORTISONE 20 MG TAB PO SCH ×2 (09:28→20:54)
[2022-12-27 12:10] LABS: Glucose,Whole Blood 502 mg/dL (70-110)
[2022-12-27] MEDS: KETOROLAC 15 MG/ML 1 ML VIAL IVP PRN (12:42)
--- NOTE | 2022-12-27 14:58 | P.PN ---
Subjective Progress Note Date: 12/27/22 Principal diagnosis: Fevers/ covid19 Patient is a 77-year-old female with a past medical history significant for COPD she is currently on 4 L nasal cannula at the [facility] where the patient lives patient also have history of atrial fibrillation diabetes mellitus PE and atrial fibrillation the patient has been sent to the ER for evaluation of fever , patient tested positive for covid, patient did have a normal white count and procalcitonin was only 0.13, patient did have CT angiogram of the chest that was negative for PE tissue some compressive atelectasis but no groundglass opacities pathognomonic for covid 19 pneumonia. On today's evaluation that is 12/27/2022, the patient remains to be afebrile patient is breathing comfortably and is down to 2 L nasal cannula oxygen, patient denies having any worsening cough or sputum production some nausea but no vomiting no abdominal pain or diarrhea Objective - Vital Signs Vital signs: Vital Signs Temp 97.8 F 12/27/22 12:35 Pulse 67 12/27/22 12:35 Resp 18 12/27/22 12:35 BP 121/81 12/27/22 12:35 Pulse Ox 96 12/27/22 12:35 FiO2 Intake & Output 12/26/22 12/27/22 12/27/22 18:59 06:59 18:59 Intake Total 598 660 Balance 598 660 Weight 113.398 kg Intake: Oral 598 660 Other: Voiding Method Bedside Commode Bedside Commode Bedside Commode # Voids 1 1 4 - Exam GENERAL DESCRIPTION: An elderly female lying in bed in no distress RESPIRATORY SYSTEM: Unlabored breathing , decreased breath sounds at bases HEART: S1 S2 regular rate and rhythm , ABDOMEN: Soft , no tenderness EXTREMITIES: No edema feet - Labs CBC & Chem 7: 12/26/22 07:53 12/26/22 07:53 Labs: Abnormal Lab Results - Last 24 Hours (Table) 12/26/22 12/26/22 12/27/22 Range/Units 16:27 19:59 06:04 POC Glucose (mg/dL) 467 H 441 H 371 H (70-110) mg/dL 12/27/22 Range/Units 12:09 POC Glucose (mg/dL) 502 H (70-110) mg/dL Microbiology - Last 24 Hours (Table) 12/25/22 04:07 Blood Culture - Preliminary Blood 12/25/22 04:14 Blood Culture - Preliminary Blood 12/24/22 06:40 Blood Culture - Preliminary Blood 12/24/22 06:55 Blood Culture - Preliminary Blood Assessment and Plan (1) COVID-19 Current Visit: Yes Status: Acute Code(s): U07.1 - COVID-19 SNOMED Code(s): 640577762 Plan: 1patient presented to hospital with increasing shortness of breath cough did have a fever which is likely multifactorial more likely due to COVID-19 infection however the patient chest x-ray did not show typical features of COVID-19 infection the patient currently on 4 L nasal cannula which is baseline for her not requiring more oxygen and does not look toxic clinically doubt se condary bacterial pneumonia 2Patient did have mildly elevated D-dimer however patient did have CT angiogram of the chest that did not show any groundglass opacities associated with COVID- 19 infection, some atelectasis 3Patient seemed to showing clinical improvement and will continue with the steroid Xarelto , zinc ascorbic acid, and continue supportive care 4-droplet isolation respiratory support Time with Patient: Less than 30
--- NOTE | 2022-12-27 15:51 | P.PN ---
Subjective Progress Note Date: 12/26/22 Principal diagnosis: Acute on chronic hypoxic respiratory failure due to combination of acute covid pneumonia as well as A. fib with RVR Acute Covid infection and pneumonia Acute exacerbation of CHF/interstitial edema due to A. fib with RVR A. fib with RVR, now well-controlled on direct oral anticoagulant Chronic adrenal insufficiency on maintenance dose of Medrol Elevated d-dimer as well as pro-calcitonin likely related to Covid 12/26/2022, patient seen and evaluated examined for follow-up on acute on chronic respiratory failure and Covid 19 infection and pneumonia patient remains bedbound respiration labored however not significantly changed from baseline ongoing dry cough is present, patient remains on 4 L oxygen denies any chest pain patient underwent computed tomography scan of the chest was negative for PE CT also failed to reveal significant groundglass opacities 77-year-old female with end-stage COPD atrial fibrillation with rapid ventricular response presented into emergency department with increasing cough shortness of breath and a spiking fever off today duration patient is a resident of [facility] she has been wearing oxygen but pulse ox has been low at nighttime came into the hospital for further evaluation, on arrival temperat ure was 100.2 and she was tachycardic, CBC within normal limit chemistry sodium is 136 potassium 4.7 BUN/creatinine 19/0.79 and glucose is 210, influenza A and B were negative RSV was negative however covid test came back positive. Her chest x-ray significant for cardiomegaly low lung volumes and interstitial edema and basal atelectasis repeat chest x-ray performed earlier today overall similar appearance. D-dimer mildly elevated due to active Covid infection, patient is hyperglycemic as well, C-reactive protein and progressive to elevated as well. Patient is currently treated with bronchodilator Z-Alphonso oral antibiotics along with IV antibiotics has been on EpiVaxvan Cardizem drip for A. fib with RVR she is on Cortef on top of that she is on Solu-Medrol 40 IV every 8 Objective - Vital Signs Vital signs: Vital Signs Temp 97.8 F 12/26/22 08:00 Pulse 91 12/26/22 08:00 Resp 18 12/26/22 08:00 BP 113/78 12/26/22 08:00 Pulse Ox 93 L 12/26/22 08:00 FiO2 Intake & Output 12/25/22 12/26/22 12/26/22 18:59 06:59 18:59 Intake Total 408 113.417 358 Balance 408 113.417 358 Weight 113.398 kg Intake: Intake, IV Titration 50 113.417 Amount Diltiazem 125 mg In 113.417 Sodium Chloride 0.9% 100 ml @ 10 MG/HR 10 mls/hr IV .[id number] RAULITO Rx#: [id number] cefTRIAXone 1 gm In 50 Sodium Chloride 0.9% 50 ml @ 100 mls/hr IVPB Q24HR RAULITO Rx#:[id number] Oral 358 358 Other: Voiding Method Bedside Commode Bedside Commode Bedside Commode # Voids 2 1 - Exam - Constitutional General appearance: average body habitus, cooperative, disheveled, mild distress - EENT Eyes: EOMI, PERRLA Ears: bilateral: normal - Neck Neck: normal ROM Carotids: bilateral: upstroke normal Thyroid: negative: normal size - Respiratory Respiratory: bilateral: CTA, diminished - Cardiovascular Rhythm: regular Heart sounds: normal: S1, S2 - Gastrointestinal General gastrointestinal: decreased bowel sounds - Neurologic Neurologic: CNII-XII intact - Musculoskeletal Musculoskeletal: gait normal, generalized weakness - Psychiatric Psychiatric: A&O x's 3, appropriate affect, intact judgment & insight - Labs CBC & Chem 7: 12/26/22 07:53 12/26/22 07:53 Labs: Abnormal Lab Results - Last 24 Hours (Table) 12/25/22 12/25/22 12/26/22 Range/Units 16:26 19:59 05:56 MCHC (31.0-37.0) g/dL RDW (11.5-15.5) % Sodium (137-145) mmol/L Chloride (98-107) mmol/L Carbon Dioxide (22-30) mmol/L BUN (7-17) mg/dL Glucose (74-99) mg/dL POC Glucose (mg/dL) 370 H 415 H 416 H (70-110) mg/dL AST (14-36) U/L ALT (4-34) U/L Alkaline Phosphatase (38-126) U/L C-Reactive Protein (<1.0) mg/dL Total Protein (6.3-8.2) g/dL 12/26/22 12/26/22 12/26/22 Range/Units 07:53 07:53 11:32 MCHC 28.2 L (31.0-37.0) g/dL RDW 15.8 H (11.5-15.5) % Sodium 136 L (137-145) mmol/L Chloride 93 L (98-107) mmol/L Carbon Dioxide 31 H (22-30) mmol/L BUN 25 H (7-17) mg/dL Glucose 390 H (74-99) mg/dL POC Glucose (mg/dL) 421 H (70-110) mg/dL AST 51 H (14-36) U/L ALT 51 H (4-34) U/L Alkaline Phosphatase 29 L (38-126) U/L C-Reactive Protein 3.5 H (<1.0) mg/dL Total Protein 6.1 L (6.3-8.2) g/dL Microbiology - Last 24 Hours (Table) 12/24/22 06:40 Blood Culture - Preliminary Blood 12/24/22 06:55 Blood Culture - Preliminary Blood Assessment and Plan Assessment: Acute on chronic hypoxic respiratory failure due to combination of acute covid pneumonia as well as A. fib with RVR Acute Covid infection and pneumonia Acute exacerbation of CHF/interstitial edema due to A. fib with RVR A. fib with RVR, now well-controlled on direct oral anticoagulant Chronic adrenal insufficiency on maintenance dose of Medrol Elevated d-dimer as well as pro-calcitonin likely related to Covid Plan: Continue supplemental oxygen Continue deep breathing exercise and incentive spirometry Corticosteroids Supportive care Hyper immune supplements Supplemental oxygen Increase activity as tolerated Time with Patient: Greater than 30
--- NOTE | 2022-12-27 15:57 | P.PN ---
Subjective Progress Note Date: 12/27/22 Principal diagnosis: Acute on chronic hypoxic respiratory failure due to combination of acute covid pneumonia as well as A. fib with RVR Acute Covid infection and pneumonia Acute exacerbation of CHF/interstitial edema due to A. fib with RVR A. fib with RVR, now well-controlled on direct oral anticoagulant Chronic adrenal insufficiency on maintenance dose of Medrol Elevated d-dimer as well as pro-calcitonin likely related to Covid 12/27/2022, patient remains afebrile, FiO2 have been reduced to 2 L nasal cannula, cough congestion is present but severity has improved, ongoing symptoms of nauseous feeling is present but however no nausea vomiting diarrhea is present patient remains afebrile and oxygen saturation 96%. Patient had multiple blood cultures which have been negative so far. Patient remains on bronchodilator with hyper immune supplement continuation of his home medications Cortef along with Solu-Medrol would recommend to start tapering it down and now as sugars are running high in 500 range 12/26/2022, patient seen and evaluated examined for follow-up on acute on chronic respiratory failure and Covid 19 infection and pneumonia patient remains bedbound respiration labored however not significantly changed from baseline ongoing dry cough is present, patient remains on 4 L oxygen denies any chest pain patient underwent computed tomography scan of the chest was negative for PE CT also failed to reveal significant groundglass opacities 77-year-old female with end-stage COPD atrial fibrillation with rapid ventricular response presented into emergency department with increasing cough shortness of breath and a spiking fever off today duration patient is a resident of [facility] care facility she has been wearing oxygen but pulse ox has been low at nighttime came into the hospital for further evaluation, on arrival temperature was 100.2 and she was tachycardic, CBC within normal limit chemistry sodium is 136 potassium 4.7 BUN/creatinine 19/0.79 and glucose is 210, influenza A and B were negative RSV was negative however covid test came back positive. Her chest x-ray significant for cardiomegaly low lung volumes and interstitial edema and basal atelectasis repeat chest x-ray performed earlier today overall similar appearance. D-dimer mildly elevated due to active Covid infection, patient is hyperglycemic as well, C-reactive protein and progressive to elevated as well. Patient is currently treated with bronchodilator Z-Alphonso oral a ntibiotics along with IV antibiotics has been on [employer]van Cardizem drip for A. fib with RVR she is on Cortef on top of that she is on Solu-Medrol 40 IV every 8 Objective - Vital Signs Vital signs: Vital Signs Temp 97.8 F 12/27/22 15:00 Pulse 67 12/27/22 15:00 Resp 16 12/27/22 15:00 BP 131/70 12/27/22 15:00 Pulse Ox 95 12/27/22 15:00 FiO2 Intake & Output 12/26/22 12/27/22 12/27/22 18:59 06:59 18:59 Intake Total 598 840 Balance 598 840 Weight 113.398 kg Intake: Oral 598 840 Other: Voiding Method Bedside Commode Bedside Commode Bedside Commode # Voids 1 1 4 - Exam - Constitutional General appearance: average body habitus, cooperative, disheveled, mild distress - EENT Eyes: EOMI, PERRLA Ears: bilateral: normal - Neck Neck: normal ROM Carotids: bilateral: upstroke normal Thyroid: negative: normal size - Respiratory Respiratory: bilateral: CTA, diminished - Cardiovascular Rhythm: regular Heart sounds: normal: S1, S2 - Gastrointestinal General gastrointestinal: decreased bowel sounds - Neurologic Neurologic: CNII-XII intact - Musculoskeletal Musculoskeletal: gait normal, generalized weakness - Psychiatric Psychiatric: A&O x's 3, appropriate affect, intact judgment & insight - Labs CBC & Chem 7: 12/26/22 07:53 12/26/22 07:53 Labs: Abnormal Lab Results - Last 24 Hours (Table) 12/26/22 12/26/22 12/27/22 Range/Units 16:27 19:59 06:04 POC Glucose (mg/dL) 467 H 441 H 371 H (70-110) mg/dL 12/27/22 Range/Units 12:09 POC Glucose (mg/dL) 502 H (70-110) mg/dL Microbiology - Last 24 Hours (Table) 12/25/22 04:07 Blood Culture - Preliminary Blood 12/25/22 04:14 Blood Culture - Preliminary Blood 12/24/22 06:40 Blood Culture - Preliminary Blood 12/24/22 06:55 Blood Culture - Preliminary Blood Assessment and Plan Assessment: Uncontrolled diabetes with hyperglycemia worsening related to steroids Acute on chronic hypoxic respiratory failure due to combination of acute covid infection however pneumonia cannot be excluded as well as A. fib with RVR Acute Covid infection and possible pneumonia Acute exacerbation of CHF/interstitial edema due to A. fib with RVR A. fib with RVR, now well-controlled on direct oral anticoagulant Chronic adrenal insufficiency on maintenance dose of Medrol Elevated d-dimer as well as pro-calcitonin likely related to Covid Plan: Continue supplemental oxygen Continue deep breathing exercise and incentive spirometry Corticosteroids, we'll start tapering it down Supportive care Hyper immune supplements Supplemental oxygen Increase activity as tolerated Time with Patient: Greater than 30
[2022-12-27 16:40] LABS: Glucose,Whole Blood 428 mg/dL (70-110)
[2022-12-27 20:12] LABS: Glucose,Whole Blood 464 mg/dL (70-110)
[2022-12-27] MEDS: ATORVASTATIN 40 MG TAB PO SCH (20:53)
[2022-12-27] MEDS: LORazepam 1 MG TAB PO PRN (22:11)
--- NOTE | 2022-12-28 00:08 | PN ---
PROGRESS NOTE SUBJECTIVE: A white female came in with COVID-19, metabolic encephalopathy. She is seen by Infectious Disease, Pulmonology. She is slowly improving. She is afebrile, breathing comfortably. She is down to 2 L. Some nausea. No abdominal pain, diarrhea. OBJECTIVE: VITAL SIGNS: Stable. CARDIOVASCULAR: S1, S2. LUNGS: Scattered wheeze and rhonchi. HEMATOLOGY: Negative Homans. OPHTHALMOLOGIC: Pupils are equal, round, reactive. ASSESSMENT: COVID-19, improved with chronic obstructive pulmonary disease exacerbation, ground- glass opacities on the CT scan. She had lactic acidosis, which is improved with fluid. Continue PT, OT, possibly will go home soon. Go back to [facility]. Continue with steroids, Xarelto, zinc, ascorbic acid. Supportive care. MMODL / IJN: [id number] /
[2022-12-28 06:09] LABS: Glucose,Whole Blood 348 mg/dL (70-110)
[2022-12-28] MEDS: methIMAzole 5 MG TAB PO SCH (06:43)
[2022-12-28] MEDS: PANTOPRAZOLE 40 MG TABLET PO SCH ×2 (06:43→17:22)
[2022-12-28] MEDS: INSULIN ASPART (NovoLOG) 100 UNIT/ML VIAL SQ SCH ×7 (06:45→20:42)
[2022-12-28] MEDS: INSULIN DETEMIR (LEVEMIR) 100 UNIT/ML SYR SQ SCH (06:45)
[2022-12-28] MEDS: DILTIAZEM CD 180 MG CAP.ER.24H PO SCH (09:19)
[2022-12-28] MEDS: ASCORBIC ACID 500 MG TAB PO SCH (09:19)
[2022-12-28] MEDS: GABAPENTIN 300 MG CAP PO SCH ×3 (09:20→20:40)
[2022-12-28] MEDS: MIDODRINE 5 MG TAB PO SCH ×3 (09:20→20:41)
[2022-12-28] MEDS: oxyCODONE-APAP 10-325MG 1 EACH TAB PO SCH ×3 (09:20→20:39)
[2022-12-28] MEDS: levETIRAcetam 500 MG TAB PO SCH ×2 (09:20→20:40)
[2022-12-28] MEDS: DIVALPROEX 500 MG TABLET.DR PO SCH ×2 (09:20→20:41)
[2022-12-28] MEDS: CARBIDOPA-LEVODOPA 10-100 MG 1 EACH TAB PO SCH ×3 (09:21→20:41)
[2022-12-28] MEDS: METOPROLOL SUCCINATE (ER) 100 MG TAB.ER.24H PO SCH (09:21)
[2022-12-28] MEDS: HYDROCORTISONE 20 MG TAB PO SCH ×2 (09:21→20:40)
[2022-12-28] MEDS: RIVAROXABAN 20 MG TAB PO SCH (09:21)
[2022-12-28] MEDS: FLUoxetine HCL 20 MG CAP PO SCH (09:21)
[2022-12-28] MEDS: ALBUTEROL HFA INHALER INHALATION SCH ×2 (09:45→19:41)
[2022-12-28 12:21] LABS: Glucose,Whole Blood 309 mg/dL (70-110)
[2022-12-28] MEDS: LORazepam 1 MG TAB PO PRN (13:05)
--- NOTE | 2022-12-28 15:21 | P.PN ---
Subjective Progress Note Date: 12/28/22 Principal diagnosis: Fevers/ covid19 Patient is a 77-year-old female with a past medical history significant for COPD she is currently on 4 L nasal cannula at the [facility] where the patient lives patient also have history of atrial fibrillation diabetes mellitus PE and atrial fibrillation the patient has been sent to the ER for evaluation of fever , patient tested positive for covid, patient did have a normal white count and procalcitonin was only 0.13, patient did have CT angiogram of the chest that was negative for PE tissue some compressive atelectasis but no groundglass opacities pathognomonic for covid 19 pneumonia. On today's evaluation that is 12/28/2022, the patient continues to be afebrile patient is breathing comfortably on 2 L nasal cannula oxygen, patient cough is decreased intensity not bring up any sputum.No vomiting no abdominal pain or di arrhea Objective - Vital Signs Vital signs: Vital Signs Temp 98 F 12/28/22 09:15 Pulse 64 12/28/22 09:15 Resp 16 12/28/22 09:15 BP 139/84 12/28/22 09:15 Pulse Ox 96 12/28/22 09:49 FiO2 Intake & Output 12/27/22 12/28/22 12/28/22 18:59 06:59 18:59 Intake Total 1020 Balance 1020 Intake: Oral 1020 Other: Voiding Method Bedside Commode External Catheter External Catheter # Voids 4 1 1 # Bowel Movements 0 - Exam GENERAL DESCRIPTION: An elderly female lying in bed in no distress RESPIRATORY SYSTEM: Unlabored breathing - Labs CBC & Chem 7: 12/26/22 07:53 12/26/22 07:53 Labs: Abnormal Lab Results - Last 24 Hours (Table) 12/27/22 12/27/22 12/27/22 Range/Units 12:09 16:39 20:09 POC Glucose (mg/dL) 502 H 428 H 464 H (70-110) mg/dL 12/28/22 Range/Units 06:08 POC Glucose (mg/dL) 348 H (70-110) mg/dL Microbiology - Last 24 Hours (Table) 12/24/22 06:40 Blood Culture - Preliminary Blood 12/24/22 06:55 Blood Culture - Preliminary Blood 12/25/22 04:07 Blood Culture - Preliminary Blood 12/25/22 04:14 Blood Culture - Preliminary Blood Assessment and Plan (1) COVID-19 Current Visit: Yes Status: Acute Code(s): U07.1 - COVID-19 SNOMED Code(s): 925206598 Plan: 1patient presented to hospital with increasing shortness of breath cough did have a fever which is likely multifactorial more likely due to COVID-19 infection however the patient chest x-ray did not show typical features of COVID-19 infection the patient on admission was on 4 L nasal cannula which is baseline for her not requiring more oxygen and does not look toxic clinically doubt secondary bacterial pneumonia 2Patient did have mildly elevated D-dimer however patient did have CT angiogram of the chest that did not show any groundglass opacities associated with COVID- 19 infection, some atelectasis 3Patient has shown clinical improvement and will continue with the steroid Xarelto , zinc ascorbic acid, and continue supportive care Time with Patient: Less than 30
[2022-12-28 16:52] LABS: Glucose,Whole Blood 263 mg/dL (70-110)
[2022-12-28] MEDS: KETOROLAC 15 MG/ML 1 ML VIAL IVP PRN (17:22)
[2022-12-28 20:08] LABS: Glucose,Whole Blood 213 mg/dL (70-110)
[2022-12-28] MEDS: ATORVASTATIN 40 MG TAB PO SCH (20:41)
--- NOTE | 2022-12-29 05:53 | PN ---
PROGRESS NOTE SUBJECTIVE: Zari Mae came in with COVID pneumonia. She has improved. Her metabolic encephalopathy has improved. She is saturating 94% on 2 L. OBJECTIVE: VITAL SIGNS: Temperature 98, pulse 60, respiratory rate 14 to 16. She continues to be afebrile. She is on 2 L. CARDIOVASCULAR: S1 and S2. LUNGS: Transmitted upper sounds. HEMATOLOGY: Negative Homans. PSYCHIATRIC: Fair mood and affect. NEUROLOGIC: Alert and oriented x3. She is doing well. [facility] will possibly [facility] to the [facility] next 24 to 48 hours. Await discharge planning. She is at [facility]. She will possibly go back to [facility]. She continues to do well. She has CT angiogram which shows ground-glass opacities with COVID-19. Continue with Xarelto, zinc, ascorbic acid. Prognosis guarded. MMODL / IJN: [id number] /
[2022-12-29 06:02] LABS: Glucose,Whole Blood 186 mg/dL (70-110)
[2022-12-29] MEDS: INSULIN ASPART (NovoLOG) 100 UNIT/ML VIAL SQ SCH ×7 (06:40→21:04)
[2022-12-29] MEDS: methIMAzole 5 MG TAB PO SCH (06:48)
[2022-12-29] MEDS: INSULIN DETEMIR (LEVEMIR) 100 UNIT/ML SYR SQ SCH (06:51)
[2022-12-29] MEDS: PANTOPRAZOLE 40 MG TABLET PO SCH ×2 (06:51→17:27)
[2022-12-29] MEDS: ALBUTEROL HFA INHALER INHALATION SCH ×2 (08:29→21:29)
[2022-12-29] MEDS: HYDROCORTISONE 20 MG TAB PO SCH ×2 (08:58→21:03)
[2022-12-29] MEDS: RIVAROXABAN 20 MG TAB PO SCH (08:58)
[2022-12-29] MEDS: MIDODRINE 5 MG TAB PO SCH ×3 (08:58→21:03)
[2022-12-29] MEDS: GABAPENTIN 300 MG CAP PO SCH ×3 (08:58→21:03)
[2022-12-29] MEDS: METOPROLOL SUCCINATE (ER) 100 MG TAB.ER.24H PO SCH (08:58)
[2022-12-29] MEDS: DIVALPROEX 500 MG TABLET.DR PO SCH ×2 (08:58→21:03)
[2022-12-29] MEDS: CARBIDOPA-LEVODOPA 10-100 MG 1 EACH TAB PO SCH ×3 (08:58→21:03)
[2022-12-29] MEDS: DILTIAZEM CD 180 MG CAP.ER.24H PO SCH (08:58)
[2022-12-29] MEDS: oxyCODONE-APAP 10-325MG 1 EACH TAB PO SCH ×3 (08:58→21:03)
[2022-12-29] MEDS: FLUoxetine HCL 20 MG CAP PO SCH (08:58)
[2022-12-29] MEDS: levETIRAcetam 500 MG TAB PO SCH ×2 (08:58→21:03)
[2022-12-29] MEDS: ASCORBIC ACID 500 MG TAB PO SCH (08:58)
--- NOTE | 2022-12-29 10:08 | P.PN ---
Subjective Progress Note Date: 12/29/22 Principal diagnosis: Acute on chronic hypoxic respiratory failure due to combination of acute covid pneumonia as well as A. fib with RVR Acute Covid infection and pneumonia Acute exacerbation of CHF/interstitial edema due to A. fib with RVR A. fib with RVR, now well-controlled on direct oral anticoagulant Chronic adrenal insufficiency on maintenance dose of Medrol Elevated d-dimer as well as pro-calcitonin likely related to Covid 12/29/2022, patient seen and evaluated examined sitting upright breathing relatively easier, oxygen has been tapered down to 2 L now, if still have dry nonproductive cough but severity has improved, ongoing shortness of breath on exertion present, patient is now off of the Solu-Medrol but kept on maintenance dose of hydrocortisone which is 20 mg 2 times a day as a maintenance dose for adrenal insufficiency, sugars improved significantly now into the low 100 to high 100 range patient however continued to have intermittent episodes of atrial tachycardia with rapid ventricular response seen in the beginning however now spontaneously resolved 12/27/2022, patient remains afebrile, FiO2 have been reduced to 2 L nasal cannula, cough congestion is present but severity has improved, ongoing symptoms of nauseous feeling is present but however no nausea vomiting diarrhea is present patient remains afebrile and oxygen saturation 96%. Patient had multiple blood cultures which have been negative so far. Patient remains on bronchodilator with hyper immune supplement continuation of his home medications Cortef along with Solu-Medrol would recommend to start tapering it down and now as sugars are running high in 500 range 12/26/2022, patient seen and evaluated examined for follow-up on acute on chronic respiratory failure and Covid 19 infection and pneumonia patient remains bedbound respiration labored however not significantly changed from baseline ongoing dry cough is present, patient remains on 4 L oxygen denies any chest pa in patient underwent computed tomography scan of the chest was negative for PE CT also failed to reveal significant groundglass opacities 77-year-old female with end-stage COPD atrial fibrillation with rapid ventricular response presented into emergency department with increasing cough shortness of breath and a spiking fever off today duration patient is a resident of [facility] she has been wearing oxygen but pulse ox has been low at nighttime came into the hospital for further evaluation, on arrival temperature was 100.2 and she was tachycardic, CBC within normal limit chemistry sodium is 136 potassium 4.7 BUN/creatinine 19/0.79 and glucose is 210, influenza A and B were negative RSV was negative however covid test came back positive. Her chest x-ray significant for cardiomegaly low lung volumes and interstitial edema and basal atelectasis repeat chest x-ray performed earlier today overall similar appearance. D-dimer mildly elevated due to active Covid infection, cari ent is hyperglycemic as well, C-reactive protein and progressive to elevated as well. Patient is currently treated with bronchodilator Z-Alphonso oral antibiotics along with IV antibiotics has been on [employer] Cardizem drip for A. fib with RVR she is on Cortef on top of that she is on Solu-Medrol 40 IV every 8 Objective - Vital Signs Vital signs: Vital Signs Temp 97.9 F 12/29/22 04:00 Pulse 60 12/29/22 04:00 Resp 16 12/29/22 04:00 BP 131/78 12/29/22 04:00 Pulse Ox 96 12/29/22 08:30 FiO2 Intake & Output 12/28/22 12/29/22 12/29/22 18:59 06:59 18:59 Intake Total 960 780 Balance 960 780 Intake: Oral 960 780 Other: Voiding Method External Catheter Bedside Commode # Voids 2 1 - Exam - Constitutional General appearance: average body habitus, cooperative, disheveled, mild distress - EENT Eyes: EOMI, PERRLA Ears: bilateral: normal - Neck Neck: normal ROM Carotids: bilateral: upstroke normal Thyroid: negative: normal size - Respiratory Respiratory: bilateral: CTA, diminished - Cardiovascular Rhythm: regular Heart sounds: normal: S1, S2 - Gastrointestinal General gastrointestinal: decreased bowel sounds - Neurologic Neurologic: CNII-XII intact - Musculoskeletal Musculoskeletal: gait normal, generalized weakness - Psychiatric Psychiatric: A&O x's 3, appropriate affect, intact judgment & insight - Labs CBC & Chem 7: 12/26/22 07:53 12/26/22 07:53 Labs: Abnormal Lab Results - Last 24 Hours (Table) 12/28/22 12/28/22 12/28/22 Range/Units 12:16 16:49 20:04 POC Glucose (mg/dL) 309 H 263 H 213 H (70-110) mg/dL 12/29/22 Range/Units 06:01 POC Glucose (mg/dL) 186 H (70-110) mg/dL Microbiology - Last 24 Hours (Table) 12/24/22 06:40 Blood Culture - Preliminary Blood 12/24/22 06:55 Blood Culture - Preliminary Blood 12/25/22 04:07 Blood Culture - Preliminary Blood 12/25/22 04:14 Blood Culture - Preliminary Blood Assessment and Plan Assessment: Uncontrolled diabetes with hyperglycemia worsening related to steroids Acute on chronic hypoxic respiratory failure due to combination of acute covid infection however pneumonia cannot be excluded as well as A. fib with RVR Acute Covid infection and possible pneumonia Acute exacerbation of CHF/interstitial edema due to A. fib with RVR A. fib with RVR, now well-controlled on direct oral anticoagulant Chronic adrenal insufficiency on maintenance dose of Medrol Elevated d-dimer as well as pro-calcitonin likely related to Covid Plan: Continue supplemental oxygen Continue deep breathing exercise and incentive spirometry Corticosteroids, we'll start tapering it down Supportive care Hyper immune supplements Supplemental oxygen Increase activity as tolerated We will sign off now follow-up as outpatient in 2-4 weeks Time with Patient: Greater than 30
[2022-12-29 11:50] LABS: Glucose,Whole Blood 340 mg/dL (70-110)
[2022-12-29 13:31] VITALS: RESP 16
--- NOTE | 2022-12-29 14:47 | P.PN ---
Subjective Progress Note Date: 12/29/22 Principal diagnosis: Fevers/ covid19 Patient is a 77-year-old female with a past medical history significant for COPD she is currently on 4 L nasal cannula at the skilled nursing where the patient lives patient also have history of atrial fibrillation diabetes mellitus PE and atrial fibrillation the patient has been sent to the ER for evaluation of fever , patient tested positive for covid, patient did have a normal white count and procalcitonin was only 0.13, patient did have CT angiogram of the chest that was negative for PE tissue some compressive atelectasis but no groundglass opacities pathognomonic for covid 19 pneumonia. On today's evaluation that is 12/29/2022, the patient remains to be afebrile , patient is breathing comfortably on 2 L nasal cannula oxygen, patient cough has decreased intensity and dry in nature, patient did have some nausea but no vom iting no abdominal pain or diarrhea Objective - Vital Signs Vital signs: Vital Signs Temp 97.9 F 12/29/22 08:00 Pulse 62 12/29/22 08:00 Resp 18 12/29/22 08:00 BP 113/69 12/29/22 08:00 Pulse Ox 96 12/29/22 08:30 FiO2 Intake & Output 12/28/22 12/29/22 12/29/22 18:59 06:59 18:59 Intake Total 960 780 Balance 960 780 Intake: Oral 960 780 Other: Voiding Method External Catheter Bedside Commode Bedside Commode # Voids 2 1 1 # Bowel Movements 1 - Exam GENERAL DESCRIPTION: An elderly female lying in bed in no distress RESPIRATORY SYSTEM: Unlabored breathing , diminished breath sounds with no wheeze Heart: S1-S2 regular rhythm - Labs CBC & Chem 7: 12/26/22 07:53 12/26/22 07:53 Labs: Abnormal Lab Results - Last 24 Hours (Table) 12/28/22 12/28/22 12/28/22 Range/Units 12:16 16:49 20:04 POC Glucose (mg/dL) 309 H 263 H 213 H (70-110) mg/dL 12/29/22 12/29/22 Range/Units 06:01 11:48 POC Glucose (mg/dL) 186 H 340 H (70-110) mg/dL Microbiology - Last 24 Hours (Table) 12/24/22 06:40 Blood Culture - Preliminary Blood 12/24/22 06:55 Blood Culture - Preliminary Blood 12/25/22 04:07 Blood Culture - Preliminary Blood 12/25/22 04:14 Blood Culture - Preliminary Blood Assessment and Plan (1) COVID-19 Current Visit: Yes Status: Acute Code(s): U07.1 - COVID-19 SNOMED Code(s): 738226929 Plan: 1patient presented to hospital with increasing shortness of breath cough did have a fever which is likely multifactorial more likely due to COVID-19 infection however the patient chest x-ray did not show typical features of COVID-19 infection the patient on admission was on 4 L nasal cannula which is baseline for her not requiring more oxygen and does not look toxic clinically doubt secondary bacterial pneumonia 2Patient did have mildly elevated D-dimer however patient did have CT angiogram of the chest that did not show any groundglass opacities associated with COVID- 19 infection, some atelectasis 3Patient continued to show clinical improvement patient to continue with Xarelto , zinc ascorbic acid, and tapering course of steroids per pulmonary Time with Patient: Less than 30
[2022-12-29 16:50] LABS: Glucose,Whole Blood 286 mg/dL (70-110)
[2022-12-29 20:30] LABS: Glucose,Whole Blood 261 mg/dL (70-110)
[2022-12-29] MEDS: ATORVASTATIN 40 MG TAB PO SCH (21:03)
--- NOTE | 2022-12-29 23:31 | DS ---
DISCHARGE SUMMARY HOSPITAL COURSE: A 77-year-old white female came in with COVID pneumonia, acute hypoxemic respiratory distress, metabolic encephalopathy. She improved with IV steroids, updraft treatments, treated for possible secondary pneumonia. She improved from medical standpoint over the next 3 to 4 days. Rehydrated her. She had prerenal azotemia and dehydration. She is stable for discharge per Infectious Disease on day of discharge. Follow up with Dr. Mackay in the snf. DIET: As tolerated. ACTIVITY: Ambulate as tolerated with PT, OT. MEDICATIONS: Include, 1. Hexadrol 6 mg daily for 7 days. 2. Cardizem CD 180 mg daily. 3. Levemir 20 units subcu daily. 4. NovoLog 11 units before meals t.i.d. 5. Xarelto 20 mg daily. 6. Prozac 20 mg daily. 7. Trulicity 1.5 mg weekly. 8. Cortef 20 mg b.i.d. 9. Depakote 500 b.i.d. 10.Keppra 1500 mg q.12. 11.Ativan 1 mg t.i.d. p.r.n. 12.Percocet 10/325 t.i.d. p.r.n. 13.Gabapentin 600 t.i.d. 14.Pantoprazole 40 b.i.d. 15.Guaifenesin 100 mg q.4 hours p.r.n. 16.Tapazole 15 mg daily. 17.Toprol-XL 100 mg daily. 18.Carbidopa/levodopa 10/100 t.i.d. 19.Clobazam 10 mg daily. 20.Lipitor 40 nightly. 21.ProAmatine 10 mg t.i.d. 22.DuoNeb updraft q.i.d. CONDITION: Stable. PROGNOSIS: Guarded. Please see further orders. Follow up with Dr. Mackay in the snf. MMODL / IJN: [id number] /
[2022-12-30] MEDS: LORazepam 1 MG TAB PO PRN (04:33)
[2022-12-30 06:27] LABS: Glucose,Whole Blood 268 mg/dL (70-110)
[2022-12-30] MEDS: INSULIN DETEMIR (LEVEMIR) 100 UNIT/ML SYR SQ SCH (06:34)
[2022-12-30] MEDS: PANTOPRAZOLE 40 MG TABLET PO SCH (06:35)
[2022-12-30] MEDS: methIMAzole 5 MG TAB PO SCH (06:35)
[2022-12-30] MEDS: INSULIN ASPART (NovoLOG) 100 UNIT/ML VIAL SQ SCH ×2 (06:35)
[2022-12-30] MEDS: ALBUTEROL HFA INHALER INHALATION SCH (08:13)
[2022-12-30] MEDS ORDERED: dexAMETHasone 2 MG TAB PO SCH (09:00)
[2022-12-30] MEDS: DIVALPROEX 500 MG TABLET.DR PO SCH (09:16)
[2022-12-30] MEDS: MIDODRINE 5 MG TAB PO SCH (09:16)
[2022-12-30] MEDS: DILTIAZEM CD 180 MG CAP.ER.24H PO SCH (09:16)
[2022-12-30] MEDS: ASCORBIC ACID 500 MG TAB PO SCH (09:16)
[2022-12-30] MEDS: CARBIDOPA-LEVODOPA 10-100 MG 1 EACH TAB PO SCH (09:16)
[2022-12-30] MEDS: FLUoxetine HCL 20 MG CAP PO SCH (09:16)
[2022-12-30] MEDS: GABAPENTIN 300 MG CAP PO SCH (09:16)
[2022-12-30] MEDS: RIVAROXABAN 20 MG TAB PO SCH (09:17)
[2022-12-30] MEDS: METOPROLOL SUCCINATE (ER) 100 MG TAB.ER.24H PO SCH (09:17)
[2022-12-30] MEDS: levETIRAcetam 500 MG TAB PO SCH (09:17)
[2022-12-30] MEDS: oxyCODONE-APAP 10-325MG 1 EACH TAB PO SCH (09:18)
[2022-12-30 09:27] VITALS: BP 123/77; PULSE 65; TEMP 98.1
[2022-12-30] MEDS: HYDROCORTISONE 20 MG TAB PO SCH (09:56)
== END 2022-12-30 11:19 | DRG 177 ==
LOC: EC 01:35 → 4SSUR 06:54 → 3SCARD 12-25 02:17 → OBSVTOIN 12-25 10:12
PROVIDERS: ADMIT Family Medicine; ATTEND Family Medicine
PROC: 8E0ZXY6 Isolation (ICD-10-PCS; principal; 2022-12-25)
DX: U07.1 COVID-19 (principal); G93.41 Metabolic encephalopathy; J12.82 Pneumonia due to coronavirus disease 2019; J96.21 Acute and chronic respiratory failure with hypoxia; J44.1 Chronic obstructive pulmonary disease with (acute) exacerbation; J44.0 Chronic obstructive pulmonary disease with (acute) lower respiratory infection; E87.20 Acidosis, unspecified; E27.40 Unspecified adrenocortical insufficiency; I48.92 Unspecified atrial flutter; I47.1 Supraventricular tachycardia; R79.1 Abnormal coagulation profile; E11.40 Type 2 diabetes mellitus with diabetic neuropathy, unspecified; L40.9 Psoriasis, unspecified; E11.65 Type 2 diabetes mellitus with hyperglycemia; E78.5 Hyperlipidemia, unspecified; T38.0X5A Adverse effect of glucocorticoids and synthetic analogues, initial encounter; M79.7 Fibromyalgia; K21.9 Gastro-esophageal reflux disease without esophagitis; I50.9 Heart failure, unspecified; I48.0 Paroxysmal atrial fibrillation; I49.5 Sick sinus syndrome; E03.9 Hypothyroidism, unspecified; I95.1 Orthostatic hypotension; M19.90 Unspecified osteoarthritis, unspecified site; F41.9 Anxiety disorder, unspecified; F32.A Depression, unspecified; G40.909 Epilepsy, unspecified, not intractable, without status epilepticus; E86.0 Dehydration; I11.0 Hypertensive heart disease with heart failure; Z87.891 Personal history of nicotine dependence; Z96.611 Presence of right artificial shoulder joint; Z87.01 Personal history of pneumonia (recurrent); Z79.85 Long-term (current) use of injectable non-insulin antidiabetic drugs; Z95.0 Presence of cardiac pacemaker; Z99.81 Dependence on supplemental oxygen; Z86.711 Personal history of pulmonary embolism; Z87.440 Personal history of urinary (tract) infections; Z85.51 Personal history of malignant neoplasm of bladder; Z79.899 Other long term (current) drug therapy; Z79.4 Long term (current) use of insulin; Z79.01 Long term (current) use of anticoagulants; Z74.01 Bed confinement status; Z91.040 Latex allergy status; Z88.8 Allergy status to other drugs, medicaments and biological substances; Z88.5 Allergy status to narcotic agent; Z88.1 Allergy status to other antibiotic agents
CPT/HCPCS: 36415; 71045; 71046; 71275; 80053; 83036; 83605; 83880; 84145; 84484; 85025; 85379; 86140; 87449; 87636; 93005; 94640; 94760; 96361; 96374; 99285

== ENCOUNTER 2023-01-10 05:16 | Emergency (ER) | payer MEDICARE, OTHER ==
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
--- NOTE | 2023-01-10 07:12 | CT ---
EXAMINATION TYPE: CT brain cspine wo con CT DLP: 1659.9 mGycm, Automated exposure control for dose reduction was used. DATE OF EXAM: 01/10/2023 6:40 AM COMPARISON: 08/24/2022 CLINICAL INDICATION:Female, 77 years old with history of trauma; Fall TECHNIQUE: Brain: Multiple axial CT images of the brain were obtained without IV contrast. Cspine: Axial CT images from the skull base to the inferior aspect of T2 we obtained without intraven ous contrast. Coronal and sagittal reformatted images were also reviewed. FINDINGS: Brain: Extra-axial spaces: No abnormal extra-axial fluid collections. Ventricular system: Dilatation in proportion to cerebral atrophy. Cerebral parenchyma: Cerebral atrophy. No acute intraparenchymal hemorrhage or mass effect. The todd -white junction is well differentiated. Scattered hypoattenuating areas are seen within the white mat ter. Cerebellum: Unremarkable. Mass effect: No evidence of midline shift. Intracranial vasculature: Atherosclerotic calcifications of the intracranial vessels. Soft tissues: Normal. Calvarium/osseous structures: No depressed skull fracture. Paranasal sinuses and mastoid air cells: Mild scattered mucosal thickening and or secretions. Right m astoid air cell opacities. Visualized orbits: Orbital contents are intact. Cervical spine: Fracture: None. Osseous structures: Multilevel degenerative disc disease changes with endplate spurring and disc oste ophyte complex's. right shoulder fixation changes partially visualized. Vertebral alignment: Mild scoliotic changes which could be partially due to patient positioning. Spinal canal/Neural Foramina: No evidence of significant spinal canal narrowing. No evidence for sign ificant neural foraminal stenosis. Neck soft tissues: Prevertebral soft tissues are within normal limits. Other: The airway is patent. The lung apices are clear. Cardiac conduction leads partially visualized IMPRESSION: 1. No acute intracranial process. 2. Nonspecific white matter changes, likely secondary to chronic small vessel ischemic disease. 3. No evidence of cervical spine fracture. 4. Mild multilevel degenerative disc disease. 5. Right mastoid air cell effusion
[2023-01-10 10:15] VITALS: BP 102/85; PULSE 82; RESP 19; TEMP 98.9
== END 2023-01-10 10:15 | disposition home or self-care (01) ==
LOC: EC 05:16
DX: R51.9 Headache, unspecified (principal); I48.91 Unspecified atrial fibrillation; J44.9 Chronic obstructive pulmonary disease, unspecified; E11.40 Type 2 diabetes mellitus with diabetic neuropathy, unspecified; E78.5 Hyperlipidemia, unspecified; I50.9 Heart failure, unspecified; K21.9 Gastro-esophageal reflux disease without esophagitis; M19.90 Unspecified osteoarthritis, unspecified site; F32.A Depression, unspecified; F41.9 Anxiety disorder, unspecified; Z86.711 Personal history of pulmonary embolism; Z87.891 Personal history of nicotine dependence; Z91.040 Latex allergy status; Z91.013 Allergy to seafood; Z88.8 Allergy status to other drugs, medicaments and biological substances; Z88.5 Allergy status to narcotic agent; Z79.01 Long term (current) use of anticoagulants; Z79.85 Long-term (current) use of injectable non-insulin antidiabetic drugs; Z79.899 Other long term (current) drug therapy; W19.XXXA Unspecified fall, initial encounter
CPT/HCPCS: 70450; 72125; 99284

== ENCOUNTER → 2023-01-24 | Outpatient (CLI) | payer MEDICARE, OTHER ==
[2023-01-24 13:49] LABS: African American GFR (CKD) >90 (>60 ml/min/1.73 sqM); Blood Urea Nitrogen 17 mg/dL (7-17); Non-African American GFR(CKD) 88 (>60 ml/min/1.73 sqM)
--- NOTE | 2023-01-24 14:54 | CT ---
EXAMINATION TYPE: CT brain wo/w con DATE OF EXAM: 01/24/2023 COMPARISON: CT brain January 10, 2023 HISTORY: seizures CT DLP: 2160.7 mGycm Automated exposure control for dose reduction was used. CONTRAST: CT scan of the head is performed without and with IV Contrast, patient injected with 100 mL of Isovue 300. FINDINGS: There is no abnormal enhancing mass or midline shift identified. Mild ventricular and sulcal prominen ce. Mild low-attenuation in the periventricular white matter. The calvarium is intact. Postcontrast i mages show no abnormal enhancing masses. The globes are intact and the visualized sinuses are clear. Thickened wall to the left maxillary sinus is redemonstrated. Completely opacified right mastoid air cells with abnormal soft tissue surrounding right middle ear ossicles on the current study is now see n with IMPRESSION: Mild diffuse cerebral atrophy and chronic small vessel ischemic change. No abnormal enhan cing intraparenchymal masses. Probable right-sided mastoiditis, correlate clinically. There appears t o be right middle ear infection spread new from recent study.
== END | disposition home or self-care (01) ==
LOC: RADCTMAIN 13:00
PROVIDERS: ATTEND Psychiatry & Neurology Neurology
DX: Z01.812 Encounter for preprocedural laboratory examination (principal); I67.82 Cerebral ischemia; G40.909 Epilepsy, unspecified, not intractable, without status epilepticus
CPT/HCPCS: 82565; 84520; 70470; 36415; Q9967

== ENCOUNTER 2023-02-28 10:45 | Emergency (ER) | payer MEDICARE, OTHER ==
[2023-02-28 11:00] VITALS: TEMP 97.9
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
[2023-02-28] MEDS ORDERED: ACETAMINOPHEN IV (For NPO) 1,000 MG in EMPTY BAG 1 BAG IVPB STA (11:10)
--- NOTE | 2023-02-28 12:07 | XR ---
EXAMINATION TYPE: XR chest 1V portable DATE OF EXAM: 02/28/2023 11:48 AM COMPARISON: Chest radiographs from 12/25/2022 TECHNIQUE: XR chest 1V portable Frontal view of the chest. CLINICAL INDICATION:Female, 77 years old with history of trauma; FINDINGS: Lungs/Pleura: Low lung volumes are present. There is no evidence of pleural effusion, focal consolida tion, or pneumothorax. Pulmonary vascularity: Unremarkable. Heart/mediastinum: Cardiomediastinal silhouette is enlarged and stable. Two lead cardiac conduction d evice overlying the left hemithorax with lead tips projecting over the right ventricle and right atri um. Musculoskeletal: No acute osseous pathology. Right shoulder fixation hardware partially visualized. IMPRESSION: No acute cardiopulmonary disease/process.
--- NOTE | 2023-02-28 12:09 | XR ---
EXAMINATION TYPE: XR pelvis AP view DATE OF EXAM: 02/28/2023 11:48 AM INDICATION: Patient age:Female; 77 years old; Reason for study: Trauma; COMPARISON: None TECHNIQUE: The pelvis was examined in a single projection. FINDINGS: There is no evidence of fracture or dislocation. There is no soft tissue abnormality. No a bnormal calcifications are present. Multilevel degenerative changes of the lower spine. Mild osteophy te formation of the acetabulum bilaterally. IMPRESSION: No acute osseous pathology.
[2023-02-28 12:58] LABS: Basophils % (A) 0 %; Eosinophils # (A) 0.2 k/uL (0-0.7); Eosinophils % (A) 2 %; HCT 41.4 % (34.0-46.0); HGB 12.7 gm/dL (11.4-16.0); Hypochromasia Slight; Lymphocytes # (A) 3.3 k/uL (1.0-4.8); Lymphocytes % (A) 41 %; MCH 28.5 pg (25.0-35.0); MCHC 30.7 g/dL (31.0-37.0); Mean Platelet Volume 8.6; Monocytes # (A) 0.9 k/uL (0-1.0); Monocytes % (A) 11 %; Neutrophils # (A) 3.5 k/uL (1.3-7.7); Neutrophils % (A) 43 %; Platelet Count 243 k/uL (150-450); RBC 4.45 m/uL (3.80-5.40); RDW 15.3 % (11.5-15.5); WBC 8.1 k/uL (3.8-10.6)
[2023-02-28 13:14] LABS: ALT 27 U/L (4-34); AST 41 U/L (14-36); African American GFR (CKD) 86 (>60 ml/min/1.73 sqM); Albumin 3.3 g/dL (3.5-5.0); Alcohol <10 mg/dL; Alkaline Phosphatase 23 U/L (38-126); Anion Gap 3 mmol/L; Blood Urea Nitrogen 18 mg/dL (7-17); Calcium 8.8 mg/dL (8.4-10.2); Carbon Dioxide 38 mmol/L (22-30); Chloride 97 mmol/L (98-107); Glucose 121 mg/dL (74-99); Non-African American GFR(CKD) 75 (>60 ml/min/1.73 sqM); Potassium 3.6 mmol/L (3.5-5.1); Sodium 138 mmol/L (137-145); Total Bilirubin 0.4 mg/dL (0.2-1.3); Total Protein 5.6 g/dL (6.3-8.2)
--- NOTE | 2023-02-28 13:27 | CT ---
EXAMINATION TYPE: CT brain savannaine wo con DATE OF EXAM: 02/28/2023 COMPARISON: 01/24/2023 HISTORY: Fall, on thinners CT DLP: 1835.8 mGycm, Automated exposure control for dose reduction was used. CONTRAST: Patient injected with 0 mL of Isovue 300. CT of the brain is performed utilizing 3 mm thick sections through the posterior fossa and 3 mm thick sections through the remaining calvarium. Study is performed within 24 hours of arrival to the hospital. No abnormal hyperdensity is present to suggest an acute intracranial hemorrhage. No mass lesion is evident. No acute infarcts are evident. Small old lacunar infarct right basal ganglion is not excluded. This was present previously Ventricles and sulci are mildly prominent for the patient age. Paranasal sinuses and mastoid air cells within the [id number] are clear. IMPRESSIONS: 1. Suggestion of some mild age-related atrophy. 2. No acute intracranial process. CT cervical spine. COMPARISON: None CT of the cervical spine is performed in the axial plane at 2 mm thick sections. Reconstructed image s in the coronal, and sagittal plane are reviewed on the computer. No acute fractures are evident. Vertebral body alignment is normal. There is loss of disc height through the cervical spine. This is greatest at C4-5 C5-6. Vertebral body heights are preserved. Anterior vertebral body spurring is noted C4-C7. No spinal canal stenosis is evident. Mild foraminal narrowing is present at C3-4 on the left. Moderate to severe bilateral foraminal narro wing is present C4-5 C5-6 from uncovertebral joint hypertrophy. Moderate right C6-7 foraminal narrowi ng is also noted from uncovertebral joint hypertrophy. IMPRESSIONS: 1. No acute osseous abnormality cervical spine. 2. Moderate to severe foraminal narrowing present greatest C4-5 and C5-6 bilaterally. Correlate with radicular symptoms. 3. Degenerative disc changes greatest at C4-5 C5-6.
[2023-02-28 14:30] VITALS: PULSE 67
[2023-02-28 15:46] VITALS: BP 114/82; RESP 18
== END 2023-02-28 17:18 | disposition home or self-care (01) ==
LOC: EC 10:45
DX: S00.93XA Contusion of unspecified part of head, initial encounter (principal); M47.812 Spondylosis without myelopathy or radiculopathy, cervical region; E11.40 Type 2 diabetes mellitus with diabetic neuropathy, unspecified; E78.5 Hyperlipidemia, unspecified; F32.A Depression, unspecified; F41.9 Anxiety disorder, unspecified; G47.33 Obstructive sleep apnea (adult) (pediatric); I48.91 Unspecified atrial fibrillation; I50.9 Heart failure, unspecified; J44.9 Chronic obstructive pulmonary disease, unspecified; K21.9 Gastro-esophageal reflux disease without esophagitis; Z79.01 Long term (current) use of anticoagulants; Z79.4 Long term (current) use of insulin; Z79.899 Other long term (current) drug therapy; Z87.891 Personal history of nicotine dependence; Z88.5 Allergy status to narcotic agent; Z91.040 Latex allergy status; Z91.013 Allergy to seafood; Z88.8 Allergy status to other drugs, medicaments and biological substances; W18.30XA Fall on same level, unspecified, initial encounter
CPT/HCPCS: 93005; 86900; 86901; 80053; 85025; 86850; 72170; 71045; 72125; 70450; 99285; 96374; G0480; J0131; 36415; 80320

== ENCOUNTER 2023-04-26 07:51 | Day surgery (SDC) | payer MEDICARE, OTHER ==
[2023-04-26 09:03] VITALS: RESP 16; TEMP 98.4
[2023-04-26 09:25] LABS: Glucose,Whole Blood 102 mg/dL (70-110)
[2023-04-26] MEDS ORDERED: HYDROcodone/APAP 5-325MG 1 EACH TAB PO PRN (09:57)
[2023-04-26 11:51] VITALS: BP 136/75; PULSE 75
--- NOTE | 2023-04-26 21:09 | FL ---
Lumbar puncture INDICATION: Pain FINDINGS: Fluoroscopy time: 42 seconds. Images obtained: 4. The procedure was explained to the patient. Risks complications and benefits were discussed. Alternat candi were discussed. All questions were answered. Informed consent was obtained. A timeout was performed. The L4-5 and L3-4 levels were chosen for access. Maximum barrier sterile technique was utilized. The skin was cleansed with Betadine and the patient sterilely prepped and draped in the usual manner. The skin and deeper tissue was anesthetized with 1% Lidocaine. Utilizing a 22-gauge spinal needle the sp inal canal was attempted to be accessed. The needle unable to be advanced into the thecal sac. L4-5 w as attempted initially. 2 attempts at the L3-4 level were also unsuccessful. The stylette was replace d and the needle withdrawn. Patient complained of chest pain. This appeared to be musculoskeletal the table. The procedure was terminated and the patient stated she was having mild seizures. Patient exh ibited no diaphoresis or shortness of breath. Vital signs appeared stable throughout the procedure. Patient was observed for short period of time prior to release. IMPRESSION: 1. Unsuccessful lumbar puncture.
== END 2023-04-26 11:50 | disposition home or self-care (01) ==
LOC: RADPROMAIN 07:51
PROVIDERS: ATTEND Orthopaedic Surgery
DX: Z53.8 Procedure and treatment not carried out for other reasons (principal); M47.26 Other spondylosis with radiculopathy, lumbar region; M41.86 Other forms of scoliosis, lumbar region
CPT/HCPCS: 62304

== ENCOUNTER → 2023-05-28 | Outpatient (CLI) | payer MEDICARE, OTHER ==
[2023-05-28 09:03] VITALS: BP 142/67; PULSE 75; RESP 15; TEMP 98.2
--- NOTE | 2023-05-28 09:30 | XR ---
EXAMINATION TYPE: XR lumbar spine 2 or 3V DATE OF EXAM: 05/28/2023 8:59 AM CLINICAL INDICATION:Female, 78 years old with history of M51.36; COMPARISON: None TECHNIQUE: XR lumbar spine 2 or 3V - Frontal, lateral and coned in L5-S1 lateral views of the spine. FINDINGS: No evidence of any acute osseous pathology. No evidence of loss of vertebral body height i s seen. There is grade 1 anterolisthesis of L4 on L5. Of the lumbar vertebral bodies. Scattered disc space narrowing. Multilevel marginal osteophyte formation throughout the visualized spine. There is f acet joint arthropathy throughout the spine. Scattered at least mild neural foraminal stenosis. IMPRESSION: 1. No acute fracture. 2. Moderate multilevel disc degeneration. 3. Grade 1 anterolisthesis of L4 and L5.
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
== END ==
LOC: PNWHC3 07:41
PROVIDERS: ATTEND Specialist
DX: M54.51 Vertebrogenic low back pain (principal); M54.2 Cervicalgia; M51.36 Other intervertebral disc degeneration, lumbar region; M43.16 Spondylolisthesis, lumbar region; M19.90 Unspecified osteoarthritis, unspecified site; I48.91 Unspecified atrial fibrillation; I48.92 Unspecified atrial flutter; J44.9 Chronic obstructive pulmonary disease, unspecified; E11.9 Type 2 diabetes mellitus without complications; K21.9 Gastro-esophageal reflux disease without esophagitis; M79.7 Fibromyalgia; E78.5 Hyperlipidemia, unspecified; G47.33 Obstructive sleep apnea (adult) (pediatric); I50.9 Heart failure, unspecified; F41.9 Anxiety disorder, unspecified; F32.9 Major depressive disorder, single episode, unspecified; Z85.51 Personal history of malignant neoplasm of bladder; Z86.711 Personal history of pulmonary embolism; Z86.69 Personal history of other diseases of the nervous system and sense organs; Z87.891 Personal history of nicotine dependence; Z79.899 Other long term (current) drug therapy; Z79.4 Long term (current) use of insulin; Z91.013 Allergy to seafood; Z91.09 Other allergy status, other than to drugs and biological substances; Z88.8 Allergy status to other drugs, medicaments and biological substances; Z91.040 Latex allergy status; Z88.1 Allergy status to other antibiotic agents; Z79.84 Long term (current) use of oral hypoglycemic drugs
CPT/HCPCS: 72100; G0463; 99211

== ENCOUNTER → 2023-05-29 | Outpatient (CLI) | payer MEDICARE, OTHER ==
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
== END | disposition home or self-care (01) ==
LOC: RADCTMAIN 12:50
PROVIDERS: ATTEND Specialist
DX: M51.36 Other intervertebral disc degeneration, lumbar region (principal); M41.86 Other forms of scoliosis, lumbar region; M48.061 Spinal stenosis, lumbar region without neurogenic claudication; M43.16 Spondylolisthesis, lumbar region; M85.88 Other specified disorders of bone density and structure, other site
CPT/HCPCS: 72131

== ENCOUNTER 2023-06-25 09:05 | Emergency (ER) | payer MEDICARE, OTHER ==
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
[2023-06-25 10:20] LABS: Basophils % (A) 0 %; Eosinophils # (A) 0.1 k/uL (0-0.7); Eosinophils % (A) 1 %; HCT 41.1 % (34.0-46.0); HGB 13.1 gm/dL (11.4-16.0); Lymphocytes # (A) 3.3 k/uL (1.0-4.8); Lymphocytes % (A) 30 %; MCH 29.5 pg (25.0-35.0); MCHC 31.8 g/dL (31.0-37.0); MCV 92.8 fL (80.0-100.0); Mean Platelet Volume 8.1; Monocytes # (A) 1.1 k/uL (0-1.0); Monocytes % (A) 10 %; Neutrophils # (A) 6.2 k/uL (1.3-7.7); Neutrophils % (A) 56 %; Platelet Count 246 k/uL (150-450); RBC 4.42 m/uL (3.80-5.40); RDW 15.3 % (11.5-15.5); WBC 11.1 k/uL (3.8-10.6)
[2023-06-25 10:32] LABS: ALT 16 U/L (4-34); AST 43 U/L (14-36); African American GFR (CKD) 71 (>60 ml/min/1.73 sqM); Albumin 3.7 g/dL (3.5-5.0); Alkaline Phosphatase 31 U/L (38-126); Anion Gap 8 mmol/L; Blood Urea Nitrogen 23 mg/dL (7-17); Calcium 9.2 mg/dL (8.4-10.2); Carbon Dioxide 33 mmol/L (22-30); Chloride 97 mmol/L (98-107); Glucose 93 mg/dL (74-99); Non-African American GFR(CKD) 61 (>60 ml/min/1.73 sqM); Potassium 4.4 mmol/L (3.5-5.1); Sodium 138 mmol/L (137-145); Total Bilirubin 0.5 mg/dL (0.2-1.3); Total Protein 6.2 g/dL (6.3-8.2)
[2023-06-25 10:37] LABS: INR 1.1 (<1.2); Partial Thromboplastin Time 24.6 sec (22.0-30.0); Prothrombin Time 12.2 sec (10.0-12.5)
[2023-06-25 10:41] LABS: NT-Pro-B-Type Natriuretic Pept 48 pg/mL
--- NOTE | 2023-06-25 10:45 | XR ---
EXAMINATION TYPE: XR chest 2V DATE OF EXAM: 06/25/2023 COMPARISON: 02/28/2023 INDICATION: Difficulty in breathing TECHNIQUE: Frontal and lateral views of the chest are obtained. FINDINGS: The heart size is normal. The pulmonary vasculature is normal. The lungs are clear. Pacemaker overlies left chest IMPRESSION: 1. No acute pulmonary process.
--- NOTE | 2023-06-25 10:49 | XR ---
EXAMINATION TYPE: XR shoulder complete BILAT DATE OF EXAM: 06/25/2023 COMPARISON: NONE HISTORY: Pain TECHNIQUE: Shoulder examined in 3 projections. FINDINGS: Left shoulder: The humeral head articulates with the glenoid. The acromio-clavicular junction is hypertrophied with some inferior spurring. No acute fractures or dislocations are evident. Right shoulder: The humeral head articulates with the glenoid. The acromio-clavicular junction may be postsurgical with some widening. No inferior or superior displ acement of the acromion is evident. Postsurgical changes within the humerus is evident. No acute fractures or dislocations are evident. A follow up study can be performed 7-10 days from acute trauma for continued pain. MRI can be perfor med if soft tissue evaluation would be of benefit. IMPRESSION: 1. No acute osseous abnormality radiographically apparent bilateral shoulders. 2. Postsurgical changes or widening of the right acromioclavicular junction.
[2023-06-25 11:28] LABS: T4, Free (Free Thyroxine) 0.62 ng/dL (0.78-2.19)
[2023-06-25 11:53] LABS: Appearance,Urine Clear (Clear); Bilirubin,Urine Negative (Negative); Blood,Urine Negative (Negative); Color,Urine Colorless; Glucose,Urine (UA) Negative (Negative); Ketones,Urine Negative (Negative); Leukocyte Esterase,Urine Small (Negative); Mucus,Urine Rare /hpf; Nitrite,Urine Negative (Negative); PH, Urine 5.5 (5.0-8.0); Protein,Urine Negative (Negative); RBC,Urine <1 /hpf (0-5); Specific Gravity,Urine 1.013 (1.001-1.035); Squamous Epithelial Cell,Urine <1 /hpf (0-4); Urobilinogen,Urine <2.0 mg/dL (<2.0); WBC,Urine 15 /hpf (0-5)
[2023-06-25 12:54] VITALS: BP 139/81; PULSE 78; RESP 20; TEMP 98
== END 2023-06-25 12:44 | disposition home or self-care (01) ==
LOC: EC 09:05
DX: R09.02 Hypoxemia (principal); E03.9 Hypothyroidism, unspecified; R53.1 Weakness; I48.91 Unspecified atrial fibrillation; I50.9 Heart failure, unspecified; J44.9 Chronic obstructive pulmonary disease, unspecified; E11.9 Type 2 diabetes mellitus without complications; K21.9 Gastro-esophageal reflux disease without esophagitis; E78.5 Hyperlipidemia, unspecified; M19.90 Unspecified osteoarthritis, unspecified site; G47.30 Sleep apnea, unspecified; F41.9 Anxiety disorder, unspecified; F32.A Depression, unspecified; Z87.891 Personal history of nicotine dependence; Z79.4 Long term (current) use of insulin; Z79.899 Other long term (current) drug therapy; Z79.1 Long term (current) use of non-steroidal anti-inflammatories (NSAID); Z88.5 Allergy status to narcotic agent; Z91.040 Latex allergy status; Z91.013 Allergy to seafood; Z79.01 Long term (current) use of anticoagulants; Z95.0 Presence of cardiac pacemaker; Z20.822 Contact with and (suspected) exposure to COVID-19
CPT/HCPCS: 36415; 71046; 80053; 81001; 83605; 83880; 84439; 84443; 84484; 85025; 85610; 85730; 87636; 93005; 99284

== ENCOUNTER → 2023-06-25 | Outpatient (CLI) | payer MEDICARE, OTHER | LOC: PNWHC3 08:24 | PROVIDERS: ATTEND Specialist | DX: Z53.9 Procedure and treatment not carried out, unspecified reason (principal) ==

== ENCOUNTER → 2023-07-05 | Outpatient (CLI) | payer MEDICARE, OTHER ==
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
[2023-07-05 13:32] VITALS: BP 133/82; PULSE 63; RESP 16
== END ==
LOC: PNWHC3 13:00
PROVIDERS: ATTEND Specialist
DX: M51.36 Other intervertebral disc degeneration, lumbar region (principal); Z88.8 Allergy status to other drugs, medicaments and biological substances; Z91.040 Latex allergy status; Z91.09 Other allergy status, other than to drugs and biological substances; Z91.013 Allergy to seafood; Z88.1 Allergy status to other antibiotic agents; Z87.891 Personal history of nicotine dependence; Z79.82 Long term (current) use of aspirin
CPT/HCPCS: 99211

== ENCOUNTER 2023-07-31 07:52 | Day surgery (SDC) | payer MEDICARE, OTHER ==
[2023-07-27 10:36] VITALS: BMI 40.3
[~2023-07-31 07:52] MED LIST changes: +LACTATED RINGERS 1,000 ML IV SCH; -REGADENOSON 0.4 MG/5 ML SYRINGE IV ONE
[2023-07-31 08:32] LABS: Glucose,Whole Blood 92 mg/dL (70-110)
[2023-07-31 08:34] VITALS: TEMP 97.8
[2023-07-31] MEDS ORDERED: IOPAMIDOL M200 10 ML VIAL ONE (08:40)
[2023-07-31] MEDS ORDERED: methylPREDNISolone ACETATE 40 MG/ML 1 ML VIAL ONE (08:40)
--- NOTE | 2023-07-31 08:46 | P.PCN ---
Date of Procedure: 07/31/23 Operative Findings: PREOPERATIVE DIAGNOSIS: lumbar radiculopathy POSTOPERATIVE DIAGNOSIS: Lumbar radiculopathy PROCEDURE 1. Lumbar epidural steroid injection under fluoroscopic guidance at the L2-L3 level. 2. Lumbar epidurogram. Imaging: Fluoroscopy was used, images where saved to the medical record ANESTHESIA: Local only EBL: Minimal PROCEDURE INDICATION: The patient with low back pain and radiculitis symptoms unresponsive to conservative treatment. Fluoroscopy was used to optimize visualization of the needle placement and to maximize safety. PROCEDURE DESCRIPTION / TECHNIQUE: The patient was seen and identified in the preoperative area. Risks, benefits, complications including but not limited to infections, bleeding, allergic reaction to medications, nerve damage and incomplete pain relief, as well as alternatives to the procedure were discussed with the patient. The patient agreed to proceed with the procedure and signed the consent. IV was started if indicated above, and vital signs were stable. Patient was taken to the OR and time out was completed. The patient was placed in the prone position on procedure table and a pillow was placed under the abdomen to reduce lumbar lordosis. The lumbosacral area was prepped and draped in the usual sterile fashion. Vitals were closely monitored during the procedure. Using anterior-posterior fluoroscopy, the L2-L3 interlaminar space was identified and the skin over this site was marked and then infiltrated with 1% lidocaine subcutaneously. Subsequently, a 20-gauge Tuohy epidural needle was inserted and advanced toward the epidural space using the Loss of resistance technique and guided by AP and lateral fluoroscopy. The correct needle position in the epidural space was verified with the injection of 1 mL of Omnipaque 180 contrast to observe an acceptable epidurogram, after negative aspiration for blood and CSF and in the absence of paresthesias. Again after negative a spiration, a 3 ml mixture containing 40mg of depomedrol and 2 ml of preservative free Normal Saline was injected and a washout of epidurogram was seen. Needle was withdrawn intact, skin was cleansed, and bandages were applied. COMPLICATIONS: None DISPOSITION / PLANS: The patient was placed in a supine position and transferred to the recovery area in a stable condition for observation. There was no evidence of lower extremity motor or sensory deficit after the procedure. Patient was discharged from the recovery room after meeting discharge criteria. Home discharge instructions were given to the patient by the staff. The patient was reexamined prior to discharge. The patient will follow up as directed.
[2023-07-31 08:59] VITALS: BP 125/65; PULSE 61; RESP 20
--- NOTE | 2023-07-31 12:22 | FL ---
Fluoroscopy INDICATION: Pain FINDINGS: Fluoroscopy time: 3 seconds. Total dose area product (DAP) in uGy*m?, mGy*cm? (or similar): 0.53581 Images obtained: 1. IMPRESSION: 1. Documentation of fluoroscopy.
== END 2023-07-31 09:16 ==
LOC: ORPAIN 07:52
PROVIDERS: ATTEND Hospitalist
DX: M54.16 Radiculopathy, lumbar region (principal); E11.9 Type 2 diabetes mellitus without complications; Z91.013 Allergy to seafood; Z91.040 Latex allergy status; Z88.8 Allergy status to other drugs, medicaments and biological substances; Z79.01 Long term (current) use of anticoagulants; Z79.82 Long term (current) use of aspirin; Z79.899 Other long term (current) drug therapy
CPT/HCPCS: 62323; J1030; Q9966

== ENCOUNTER 2024-01-08 09:47 | Inpatient (IN) | payer MEDICARE, OTHER ==
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
[2024-01-08 10:55] LABS: Glucose,Whole Blood 87 mg/dL (70-110)
[2024-01-08] MEDS: NALOXONE 0.4 MG/ML 1 ML VIAL IVP PRN (11:03)
[2024-01-08 11:21] LABS: Basophils # (A) 0.1 k/uL (0-0.2); Basophils % (A) 1 %; Eosinophils # (A) 0.1 k/uL (0-0.7); Eosinophils % (A) 1 %; HCT 50.2 % (34.0-46.0); HGB 14.9 gm/dL (11.4-16.0); Hypochromasia Slight; Lymphocytes # (A) 3.1 k/uL (1.0-4.8); Lymphocytes % (A) 35 %; MCH 29.7 pg (25.0-35.0); MCHC 29.8 g/dL (31.0-37.0); MCV 99.8 fL (80.0-100.0); Macrocytosis Slight; Mean Platelet Volume 8.6; Monocytes # (A) 1.2 k/uL (0-1.0); Monocytes % (A) 13 %; Neutrophils # (A) 4.5 k/uL (1.3-7.7); Neutrophils % (A) 49 %; Platelet Count 232 k/uL (150-450); RBC 5.03 m/uL (3.80-5.40); RDW 14.3 % (11.5-15.5)
[2024-01-08 11:22] LABS: VBG PH 7.35 (7.31-7.41)
[2024-01-08 11:28] LABS: Appearance,Urine Clear (Clear); Bilirubin,Urine Negative (Negative); Blood,Urine Negative (Negative); Color,Urine Yellow; Glucose,Urine (UA) Negative (Negative); Ketones,Urine 1+ (Negative); Leukocyte Esterase,Urine Negative (Negative); Mucus,Urine Occasional /hpf; Nitrite,Urine Negative (Negative); Protein,Urine 1+ (Negative); RBC,Urine 2 /hpf (0-5); Specific Gravity,Urine 1.034 (1.001-1.035); Squamous Epithelial Cell,Urine <1 /hpf (0-4); WBC,Urine 1 /hpf (0-5)
[2024-01-08 11:37] LABS: INR 1.1 (<1.2); Partial Thromboplastin Time 23.5 sec (22.0-30.0); Prothrombin Time 11.7 sec (10.0-12.5)
[2024-01-08 11:46] LABS: Amphetamine Screen,Urine Not Detected (NotDetected); Barbiturate Screen,Urine Not Detected (NotDetected); Benzodiazepines Screen,Urine Detected (NotDetected); Cocaine Screen,Urine Not Detected (NotDetected); Methadone Screen, Urine Not Detected (NotDetected); Opiate Screen,Urine Detected (NotDetected); Oxycodone Screen, Urine Not Detected (NotDetected); Phencyclidine Screen,Urine Not Detected (NotDetected); Tricyclic Antidepressant,Urine Not Detected (NotDetected); Urn Cannabinoid Scrn Not Detected (NotDetected)
[2024-01-08 11:52] LABS: Lactic Acid, Venous 1.7 mmol/L (0.7-2.0)
--- NOTE | 2024-01-08 11:58 | XR ---
EXAMINATION TYPE: XR chest 2V DATE OF EXAM: 01/08/2024 COMPARISON: 01/01/2024 INDICATION: Altered mental status TECHNIQUE: Frontal and lateral views of the chest are obtained. FINDINGS: The heart size is normal. Pacemaker overlies lies the left chest The pulmonary vasculature is normal. There is some mild infiltrate in the retrocardiac region. Correlate for atelectasis. Pneumonia could be considered. IMPRESSION: 1. Mild left lower lobe infiltrate. Correlate for atelectasis or pneumonia.
--- NOTE | 2024-01-08 12:03 | CT ---
EXAMINATION TYPE: CT brain wo con CT DLP: 1227.9 mGycm, Automated exposure control for dose reduction was used. DATE OF EXAM: 01/08/2024 11:56 AM COMPARISON: 01/01/2024. CLINICAL INDICATION:Female, 78 years old with history of Altered mental status, ams TECHNIQUE: Brain: Axial CT images of the brain were obtained with coronal and sagittal reformats created and rev iewed. Contrast used: None. Oral contrast used: None. FINDINGS: Brain: Extra-axial spaces: No abnormal extra-axial fluid collections. Ventricular system: Dilatation in proportion to cerebral atrophy. Cerebral parenchyma: Cerebral atrophy. No acute intraparenchymal hemorrhage or mass effect. The todd -white junction is well differentiated. Scattered hypoattenuating areas are seen within the white mat ter. Cerebellum: Unremarkable. Mass effect: No evidence of midline shift. Intracranial vasculature: unremarkable Soft tissues: Normal. Calvarium/osseous structures: No depressed skull fracture. Paranasal sinuses and mastoid air cells: Mild scattered paranasal sinus disease. Visualized orbits: Orbital contents are intact. IMPRESSION: 1. No acute intracranial process. 2. Nonspecific white matter changes, likely secondary to chronic small vessel ischemic disease.
[2024-01-08 13:36] LABS: ALT 12 U/L (4-34); AST 39 U/L (14-36); African American GFR (CKD) >90 (>60 ml/min/1.73 sqM); Albumin 3.1 g/dL (3.5-5.0); Alcohol <10 mg/dL; Alkaline Phosphatase 22 U/L (38-126); Anion Gap 5 mmol/L; Blood Urea Nitrogen 30 mg/dL (7-17); Carbon Dioxide 33 mmol/L (22-30); Chloride 105 mmol/L (98-107); Glucose 88 mg/dL (74-99); Non-African American GFR(CKD) 87 (>60 ml/min/1.73 sqM); Potassium 3.9 mmol/L (3.5-5.1); Sodium 143 mmol/L (137-145); Total Bilirubin 0.8 mg/dL (0.2-1.3); Total Protein 5.4 g/dL (6.3-8.2)
[2024-01-08 13:41] LABS: Valproic Acid (Depakene) 36.4 ug/mL
[2024-01-08 16:54] LABS: Glucose,Whole Blood 97 mg/dL (70-110)
[2024-01-08] MEDS: INSULIN ASPART (NovoLOG) 100 UNIT/ML VIAL SQ SCH (17:01)
[2024-01-08] MEDS: MIDODRINE 5 MG TAB PO SCH (18:02)
[2024-01-08] MEDS: CARBIDOPA-LEVODOPA 25-100 MG 1 EACH TAB PO SCH (21:15)
[2024-01-08] MEDS: HYDROCORTISONE 20 MG TAB PO SCH (21:16)
[2024-01-08] MEDS: DIVALPROEX 500 MG TABLET.DR PO SCH (21:16)
[2024-01-08] MEDS: DONEPEZIL 10 MG TAB PO SCH (21:18)
[2024-01-08] MEDS: FLUTICASONE 50MCG/SPRAY NASAL 16GM EA NOSTRIL SCH (21:18)
[2024-01-09 01:21] LABS: ABG Base Excess 10.2 mmol/L; ABG HCO3 36 mmol/L (21-25); ABG Oxygen Saturation 97.4 % (94-97); ABG PCO2 54 mmHg (35-45); ABG PH 7.44 (7.35-7.45); ABG PO2 92 mmHg (83-108); Allen Test Performed? Yes
[2024-01-09] MEDS: DILTIAZEM 125 MG in SODIUM CHLORIDE 0.9% 100 ML IV SCH (03:56)
[2024-01-09 04:10] LABS: Basophils # (A) 0.1 k/uL (0-0.2); Basophils % (A) 1 %; Eosinophils # (A) 0.1 k/uL (0-0.7); Eosinophils % (A) 1 %; HCT 51.4 % (34.0-46.0); HGB 15.4 gm/dL (11.4-16.0); Hypochromasia Slight; Lymphocytes # (A) 3.1 k/uL (1.0-4.8); Lymphocytes % (A) 29 %; MCH 29.8 pg (25.0-35.0); MCV 99.5 fL (80.0-100.0); Macrocytosis Slight; Mean Platelet Volume 8.5; Monocytes # (A) 1.1 k/uL (0-1.0); Monocytes % (A) 10 %; Neutrophils # (A) 6.1 k/uL (1.3-7.7); Neutrophils % (A) 57 %; Platelet Count 221 k/uL (150-450); RBC 5.17 m/uL (3.80-5.40); RDW 14.4 % (11.5-15.5); WBC 10.7 k/uL (3.8-10.6)
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
[2024-01-09 05:16] LABS: African American GFR (CKD) 78 (>60 ml/min/1.73 sqM); Anion Gap 11 mmol/L; Blood Urea Nitrogen 32 mg/dL (7-17); Calcium 9.5 mg/dL (8.4-10.2); Carbon Dioxide 34 mmol/L (22-30); Chloride 98 mmol/L (98-107); Glucose 109 mg/dL (74-99); Non-African American GFR(CKD) 68 (>60 ml/min/1.73 sqM); Potassium 4.3 mmol/L (3.5-5.1); Sodium 143 mmol/L (137-145)
[2024-01-09] MEDS: methIMAzole 5 MG TAB PO SCH (06:20)
[2024-01-09] MEDS: FUROSEMIDE 10 MG TAB PO SCH (06:21)
[2024-01-09] MEDS: PANTOPRAZOLE 40 MG TABLET PO SCH (06:21)
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
--- NOTE | 2024-01-09 07:13 | XR ---
EXAMINATION TYPE: XR chest 1V portable DATE OF EXAM: 01/09/2024 COMPARISON: 01/08/2024 INDICATION: Acute on chronic respiratory failure TECHNIQUE: Single frontal view of the chest is obtained. FINDINGS: The heart size is normal. The pulmonary vasculature is normal. Some minimal left lower lobe subsegmental atelectasis may be present. IMPRESSION: 1. Suggestion of mild left lower lobe atelectasis.
[2024-01-09 07:43] LABS: Glucose,Whole Blood 100 mg/dL (70-110)
[2024-01-09] MEDS: DEXTROSE 5% IN WATER 100 ML with AMIODARONE 150 MG IV ONE (07:45)
[2024-01-09] MEDS: IPRATROPIUM-ALBUTEROL 3 ML NEB INHALATION SCH (07:46)
[2024-01-09] MEDS: HYDROCORTISONE SUCCINATE 100 MG/2 ML VIAL IV STA (07:47)
[2024-01-09] MEDS: AMIODARONE 360 MG in DEXTROSE 5% IN WATER 200 ML IV ONE (08:04)
--- NOTE | 2024-01-09 08:47 | P.PN ---
Subjective Progress Note Date: 01/09/24 HISTORY OF PRESENT ILLNESS: 78-year-old morbidly obese problem [facility] home who was sent to the emergency department [facility] because of altered mental status was known to have multiple medical problem found to be completely confused not responding well she was quite hypoxic she is on chronic respiratory failure on 4 L of oxygen on more regular basis. EMS were called to the scene seen patient who continued to be quite bit confused and significant altered mental status in the having half dose of Narcan she still did not respond well. Continue to be quite hypoxic and putting her on BiPAP and then do bring her to the emergency department at [facility] where was seen and evaluated. She has multiple medical problem on multiple medication and oxygen she was diagnosed with acute respiratory failure with severe carbon dioxide retention as hypercapnia with good ppression related probably to medication and medication interaction with side effect. Also possibility of infection as there possibility of overdose versus seizure activity. Her laboratory value showed with her ABG pCO2 of 78 with HCO3 of 42 pH of 7.35, hemoglobin 14.9 with hematocrit 50.2 with normal white blood cell. Blood sugars mildly elevated with lactic acid 1.7 UA was slightly Positive chemistry with carbon dioxide of 33 BUN of 30 creatinine 1.65 with calcium level slightly be low. Ammonia level was normal at 25 with troponin 0.015. Brain CAT scan shows no acute intracranial process with nonspecific white matter changes secondary to small vessel disease. C atelectasis versus pneumonia. EKG shows normal sinus rhythm with nonspecific finding. Patient was kept on BiPAP continue supportive care will consult pulmonary patient have higher possibly to end up on mechanical ventilation at this point. Hest x-ray showed mild left lower lobe infiltrate correlate with 01/09/2024: Patient remain in ER hold on BiPAP for respiratory distress and failure, continue to have significant confusion and worsening mental status, she still having A-fib with RVR with pulse rate running at 140 bpm despite 10 mg of Cardizem drip, patient be seen cardiology today and she looks like she need to be transferred to the ICU for further management she is remain no code and DO NOT RESUSCITATE at this point we will continue current management with the interaction to medication along possibility of overdose along with her severe COPD exacerbation with severe hypercapnia and CO2 retention. Prognosis at this point specially with was going on with patient cardiopulmonary ramires is very not clear and there is a big possibility for high comorbidity and high mortality at this point. REVIEW OF SYSTEMS: CONSTITUTIONAL: Mildly obese mild respiratory distress. EYES: No icterus sclerae, no conjunctivitis. EARS, NOSE, MOUTH, THROAT, and FACE: No sore throat, lymphadenopathy, carotid bruits or deformity. RESPIRATORY: Positive shortness of breath cough wheezes. CARDIOVASCULAR: Positive PND orthopnea palpitation no angina. GASTROINTESTINAL: No Abd pain, Nausea or vomiting, no Diarrhea or constipation, No GI Bleed, no distention or masses. GENITOURINARY: Negative for Hematuria or UTI, no kidney stones. INTEGUMENT/BREAST: Negative for any muscular injury with mild osteoarthritis.. HEMATOLOGIC/LYMPHATIC: Negative for bleed or purpura. MUSCULOSKELTAL: Negative for Myalgia or arthralgia. NEURLOGICAL: Significant altered mental status still able to move all 4 extremities with quite bit confused. BEHAVIORAL/PSYCH: Negative. ENDOCRINE: Negative. PHYSICAL EXAMINATION: General Appearance: Confused in mild distress. Neck HEENT: Supple, no lymphadenopathy, no thyroid enlargement, no carotid bruits. Lungs: Decreased breath sound bilaterally with fine rhonchi positive crackles in the bases specially the left side with mild aspect expiratory wheezes. Chest Wall: Decreased expansion with inspiration no deformity no tenderness no rash. Heart: irregular rate and rhythm, S1, S2 positive S3 no gallop. Back: Symmetric, no curvature, ROM normal, no CVA tenderness. Abdomen: Soft, non-tender, bowel sounds active all four quadrants, no masses, no organomegaly. Extremities: Normal no cyanosis trace edema. Pulses: 2+ and symmetric. Skin: Skin color, texture, tugor normal, no rashes or lesions. Neurologic: Severely confused cranial nerves II through XII intact, positive generalized weakness., Not able to do gait exam. ASSESSMENT AND PLAN: _Acute respiratory failure: Not a clear etiology most likely COPD with exacerbation along with overdose possible seizure possible medication interaction on the top this A-fib with RVR causing probably worsening diastolic congestive heart failure. _Severe hypercapnia with carbon dioxide retention: Most likely from COPD and suppression of breathing from medication interaction or overdose. Patient will continue BiPAP will be seen pulmonary at this point continue to watch her blood gas carefully. _A-fib with RVR: Pulse rate remained high despite Cardizem up to 10 mg an hour we will titrate up to 15 mg an hour and patient be seen cardiology most likely starting on amiodarone drip today. _COPD with worsening symptoms and more exacerbation continue DuoNeb continue oxygen BiPAP and will be on steroid IV. Try to avoid intubation at this point. _Possible medication side effect or interaction combination between her pain meds, gabapentin, and Depakote. Patient was giving Narcan will continue to watch for any further complication or side effect. _Type 2 diabetes, remain on NovoLog and Levemir continue Accu-Chek with sliding scales coverage. _Adrenal insufficiency: Has been on Cortef and fludrocortisone continue medication still using midodrine for hypotension as well. _History of pulmonary embolism: Has been on Xarelto resume medication. _Chronic pain plan: Has been on hydrocodone and gabapentin will be hold off gabapentin and slow down on hydrocodone for now. _Parkinsonism: Has been on Sinemet as a medication. _History of seizure: Has been on Keppra 1500 mg twice a day. _Hyperlipidemia: Continue Lipitor. _Worsening mental status and mild dementia has been on Aricept 10 mg a day. _Hypothyroidism: Has been on Tapazole 15 mg daily. Prognosis: Poor Discussion: Patient been admitted for acute respiratory failure with acute CO2 retention A-fib with RVR with congestive heart failure exacerbation with very rapid ventricular response and a flutter she is still not subtle still hypoxic still symptomatic. Patient be seen cardiology, pulmonary, will continue current management one of the idea whether we have any trouble with her adrenal insufficiency not getting her hydrocortisone time yesterday she will have 1 dose of hydrocortisone 100 mg IV x 1 today see if it can reverse and help. Objective - Vital Signs Vital signs: Vital Signs Temp 97.7 F 01/08/24 21:23 Pulse 144 H 01/09/24 05:00 Resp 14 01/09/24 05:00 BP 148/106 01/09/24 05:00 Pulse Ox 99 01/09/24 05:00 FiO2 40 01/09/24 04:41 Intake & Output 01/08/24 01/08/24 01/09/24 06:59 18:59 06:59 Intake Total 9.583 Balance 9.583 Weight 113.398 kg Intake: Intake, IV Titration 9.583 Amount Diltiazem 125 mg In 9.583 Sodium Chloride 0.9% 100 ml @ 5 MG/HR 5 mls/hr IV .Q24H RAULITO Rx#:[id number] - Labs CBC & Chem 7: 01/09/24 03:26 01/09/24 03:26 Labs: Abnormal Lab Results - Last 24 Hours (Table) 01/08/24 01/08/24 01/08/24 Range/Units 10:03 10:03 10:03 WBC (3.8-10.6) k/uL Hct 50.2 H (34.0-46.0) % MCHC 29.8 L (31.0-37.0) g/dL Monocytes # 1.2 H (0-1.0) k/uL ABG pCO2 (35-45) mmHg ABG HCO3 (21-25) mmol/L ABG O2 Saturation (94-97) % VBG pCO2 78 H* (37-51) mmHg VBG HCO3 42 H (24-28) mmol/L Carbon Dioxide (22-30) mmol/L BUN (7-17) mg/dL Glucose (74-99) mg/dL Calcium (8.4-10.2) mg/dL AST (14-36) U/L Alkaline Phosphatase (38-126) U/L Total Protein (6.3-8.2) g/dL Albumin (3.5-5.0) g/dL Urine Protein 1+ H (Negative) Urine Ketones 1+ H (Negative) Urine Mucus Occasional H (None) /hpf Urine Opiates Screen Detected H (NotDetected) U Benzodiazepines Scrn Detected H (NotDetected) 01/08/24 01/09/24 01/09/24 Range/Units 12:57 01:10 03:26 WBC 10.7 H (3.8-10.6) k/uL Hct 51.4 H (34.0-46.0) % MCHC 30.0 L (31.0-37.0) g/dL Monocytes # 1.1 H (0-1.0) k/uL ABG pCO2 54 H (35-45) mmHg ABG HCO3 36 H (21-25) mmol/L ABG O2 Saturation 97.4 H (94-97) % VBG pCO2 (37-51) mmHg VBG HCO3 (24-28) mmol/L Carbon Dioxide 33 H (22-30) mmol/L BUN 30 H (7-17) mg/dL Glucose (74-99) mg/dL Calcium 8.0 L (8.4-10.2) mg/dL AST 39 H (14-36) U/L Alkaline Phosphatase 22 L (38-126) U/L Total Protein 5.4 L (6.3-8.2) g/dL Albumin 3.1 L (3.5-5.0) g/dL Urine Protein (Negative) Urine Ketones (Negative) Urine Mucus (None) /hpf Urine Opiates Screen (NotDetected) U Benzodiazepines Scrn (NotDetected) 01/09/24 Range/Units 03:26 WBC (3.8-10.6) k/uL Hct (34.0-46.0) % MCHC (31.0-37.0) g/dL Monocytes # (0-1.0) k/uL ABG pCO2 (35-45) mmHg ABG HCO3 (21-25) mmol/L ABG O2 Saturation (94-97) % VBG pCO2 (37-51) mmHg VBG HCO3 (24-28) mmol/L Carbon Dioxide 34 H (22-30) mmol/L BUN 32 H (7-17) mg/dL Glucose 109 H (74-99) mg/dL Calcium (8.4-10.2) mg/dL AST (14-36) U/L Alkaline Phosphatase (38-126) U/L Total Protein (6.3-8.2) g/dL Albumin (3.5-5.0) g/dL Urine Protein (Negative) Urine Ketones (Negative) Urine Mucus (None) /hpf Urine Opiates Screen (NotDetected) U Benzodiazepines Scrn (NotDetected)
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
[2024-01-09] MEDS: METOPROLOL SUCCINATE (ER) 100 MG TAB.ER.24H PO SCH (09:08)
[2024-01-09] MEDS: RIVAROXABAN 20 MG TAB PO SCH (09:08)
[2024-01-09] MEDS: LOSARTAN 25 MG TAB PO SCH (09:09)
[2024-01-09] MEDS: DILTIAZEM CD 180 MG CAP.ER.24H PO SCH (09:09)
[2024-01-09] MEDS: INSULIN DETEMIR (LEVEMIR) 100 UNIT/ML SYR SQ SCH (09:36)
[2024-01-09 11:29] LABS: Glucose,Whole Blood 133 mg/dL (70-110)
[2024-01-09] MEDS: AMIODARONE 450 MG in DEXTROSE 5% IN WATER 250 ML IV SCH (13:21)
[2024-01-09 16:47] LABS: Glucose,Whole Blood 115 mg/dL (70-110)
[2024-01-09 20:38] LABS: Glucose,Whole Blood 94 mg/dL (70-110)
[2024-01-09] MEDS: ATORVASTATIN 40 MG TAB PO SCH (21:37)
[2024-01-10 06:10] LABS: Glucose,Whole Blood 107 mg/dL (70-110)
[2024-01-10 11:23] LABS: Glucose,Whole Blood 106 mg/dL (70-110)
[2024-01-10] MEDS: METOPROLOL SUCCINATE (ER) 100 MG TAB.ER.24H PO SCH (12:03)
--- NOTE | 2024-01-10 13:29 | P.PN ---
Subjective Progress Note Date: 01/10/24 Consult reason: atrial flutter, congestive heart failure History of present illness: History of present illness: This is a 78-year-old female patient of Dr. Leong with past medical history of paroxysmal atrial fibrillation on Xarelto, permanent pacemaker, hypertension, dyslipidemia, valvular heart disease, adrenal insufficiency, chronic obstructive pulmonary disease, chronic hypoxic respiratory failure on home O2, history of pulmonary embolism, history of bladder cancer s/p surgery, diabetes mellitus type 2. We have been asked to evaluate the patient for new onset of atrial flutter and CHF. Patient resides at [facility] and due to altered mental status was brought into the emergency center for further evaluation. Patient is currently on BiPAP and has been seen by pulmonary medicine. Patient is unable to provide any reliable information. Patient has been started on Cardizem drip and resumed on Xarelto as well as beta-william. Heart rate is running up to the 140s. EKG #1 sinus rhythm 80 bpm mild nonspecific T wave changes, #[address]/fibrillation, #3 atrial flutter 148 bpm Chest x-ray: Mid left lower lobe infiltrate. Correlate for atelectasis or pneumonia. CT brain no acute intracranial process. WBC 10.7, hemoglobin 15.4. Sodium 143, potassium 4.3, 6 CO2 34, BUN 32 creatinine 0.84. TSH 3.64. Troponin negative x 1. Ammonia level 25. Home cardiac medications: Cardizem CD 180 mg daily, Lasix 10 mg daily, losartan 12.5 mg daily, metoprolol succinate 100 mg daily, Xarelto 20 mg daily, Crestor 20 mg Sunday. Cardiac catheterization in 01/2020 revealed normal coronary arteries Echocardiogram performed in the office on 09/26/2022 revealed EF of 55 to 60%. Moderate concentric left ventricular hypertrophy. Trace aortic regurgitation. Mild mitral regurgitation. Mild tricuspid regurgitation. PASP 33 mmHg. 01/09 Patient is seen today on the cardiac stepdown unit. Her mental status is improved and patient is able to answer questions today. Telemetry is atrial fibrillation around 130 ventricular rate. She has been on Toprol XL 100 mg daily and Cardizem CD1 180 mg daily. Patient was started on amiodarone drip yesterday. For some reason Cardizem drip was discontinued. Blood pressure 109/58. Physical examination: Gen: This is a morbidly obese 78-year-old female in no acute distress VS: reviewed HEENT: Head is atraumatic, normocephalic. Pupils equal, round. Sclerae is anicteric. NECK: Supple. No JVD. LUNGS: Clear to auscultation. No wheezes or rhonchi. No intercostal retractions. HEART: Irregular rate and rhythm. No murmur. ABDOMEN: Soft No tenderness. EXTREMITIES: No pedal edema. No calf tenderness. Assessment: Typical atrial flutter with poorly controlled rate Paroxysmal atrial fibrillation, currently with RVR Acute on chronic hypoxic respiratory failure secondary to COPD exacerbation, possible pneumonia Sick sinus syndrome status post permanent pacemaker Hypertension Dyslipidemia Valvular heart disease COPD History of pulmonary embolus Remote history of tobacco use Plan: Continue patient's home cardiac medications Continue amiodarone drip Increase metoprolol to succinate to 150 mg daily and increase Cardizem CD to 240 mg daily, additional dose of 120 to be given now Continue telemetry monitoring Obtain 2-D echocardiogram and Doppler study to assess cardiac structure and function Further recommendations to follow based upon clinical course Nurse practitioner note has been reviewed, I agree with documented findings and plan of care. Patient was seen and examined. Objective - Vital Signs Vital signs: Vital Signs Temp 97.9 F 01/09/24 20:00 Pulse 110 H 01/10/24 04:00 Resp 20 01/10/24 04:00 BP 109/58 01/10/24 04:00 Pulse Ox 98 01/10/24 04:00 FiO2 40 01/10/24 04:45 Intake & Output 01/09/24 01/10/24 01/10/24 18:59 06:59 18:59 Intake Total 13.5 250 Output Total 800 200 Balance -786.5 50 Intake: Intake, IV Titration 13.5 250 Amount Amiodarone 450 mg In 250 Dextrose 5% in Water 250 ml @ 0.5 MG/MIN 16.667 mls/hr IV .Q15H [facility] Rx#: [id number] Diltiazem 125 mg In 13.5 Sodium Chloride 0.9% 100 ml @ 5 MG/HR 5 mls/hr IV .Q24H [facility] Rx#:[id number] Output: Urine 800 200 Other: Voiding Method External Catheter External Catheter - Labs CBC & Chem 7: 01/09/24 03:26 01/09/24 03:26 Labs: Abnormal Lab Results - Last 24 Hours (Table) 01/09/24 01/09/24 Range/Units 11:28 16:45 POC Glucose (mg/dL) 133 H 115 H (70-110) mg/dL
--- NOTE | 2024-01-10 14:03 | P.PN ---
Subjective Progress Note Date: 01/10/24 Patient is a 78-year-old white female with past medical history significant for COPD, chronic hypoxemic respiratory failure, obstructive sleep apnea without CPAP atrial fibrillation and is anticoagulated on Xarelto, pulmonary embolism, adrenal insufficiency, prior splenectomy, type 2 diabetes mellitus, seizure disorder, among many other comorbidities. She is reportedly a jail resident and resides at [facility]. She was noted to be altered, more so than normal. It was reported that she took her oxygen off at the jail. On arrival to the emergency room, she was noted to be somnolent. A VBG indicated pCO2 of 78 and pH of 7.35. She is currently resting in bed, on BiPAP with settings 12/6 and FiO2 40%. She is achieving tidal volumes of 350-400 and respiratory rate is in the mid teens. She remains lethargic, but will briefly wake up and answer some questions. According to the nurse, this is an improvement from earlier. She is only oriented to self. I did order a follow- up ABG with current BiPAP settings which shows pO2 of 92, pCO2 of 54, pH of 7.44. Note, that she also has chronic back pain, and takes Bristol on outpatient basis. She did receive some Narcan while in the emergency room, reportedly without significant response. She does take Aricept on an outpatient basis, and I am uncertain of her baseline mentation. Noncontrast CT of the brain did not show any acute intracranial process. Chest x-ray done on arrival shows a possible retrocardiac infiltrate versus atelectasis. She has remained afebrile. CBC unremarkable, no leukocytosis. CMP also unremarkable. LFTs not significantly elevated. Ammonia 25. Lactic acid 1.7. Urinalysis not concerning for UTI. Urine tox screen positive for opiates and benzodiazepines. EKG shows normal sinus rhythm without any obvious acute ischemic changes. Troponin 0.015. Current vital signs stable. On today's evaluation of 01/10/2024, the patient is being seen for a follow-up. She is sluggishly responsive. She is able to communicate. She remains in atrial fibrillation. The patient was treated with amiodarone and currently she is on metoprolol at a dose of 150 mg p.o. daily and Cardizem CD to 40 mg p.o. daily. She was taken off the BiPAP this morning and the patient is currently on 3 L of oxygen by nasal cannula. Less tachycardic compared to yesterday. No recent blood work from today. Procalcitonin level was low. TSH is at 3.6. The patient is currently off the amiodarone drip and off the Cardizem drip. Blood pressure is stable for now. He is on chronically on anticoagulation with Xarelto. She is on Levemir insulin 20 units daily and she is also on Cortef 20 mg p.o. twice daily suspecting underlying adrenal insufficiency. Objective - Vital Signs Vital signs: Vital Signs Temp 97.9 F 01/09/24 20:00 Pulse 110 H 01/10/24 04:00 Resp 20 01/10/24 04:00 BP 109/58 01/10/24 04:00 Pulse Ox 98 01/10/24 04:00 FiO2 40 01/10/24 04:45 Intake & Output 01/09/24 01/10/24 01/10/24 18:59 06:59 18:59 Intake Total 13.5 250 240 Output Total 800 200 Balance -786.5 50 240 Intake: Intake, IV Titration 13.5 250 Amount Amiodarone 450 mg In 250 Dextrose 5% in Water 250 ml @ 0.5 MG/MIN 16.667 mls/hr IV .Q15H [facility] Rx#: [id number] Diltiazem 125 mg In 13.5 Sodium Chloride 0.9% 100 ml @ 5 MG/HR 5 mls/hr IV .Q24H [facility] Rx#:[id number] Oral 240 Output: Urine 800 200 Other: Voiding Method External Catheter External Catheter - Exam GENERAL EXAM: Lethargic,, communicating, more alert compared to yesterday currently on 3 L of oxygen by nasal cannula HEAD: Normocephalic and atraumatic EYES: Normal reaction of pupils, equal size. NOSE: Clear with pink turbinates. THROAT: No erythema or exudates. NECK: No masses, no JVD. CHEST: No chest wall deformity. LUNGS: Equal air entry with markedly diminished lung sounds bilaterally. CVS: S1 and S2 normal with no audible murmur, regular rhythm. No extra heart sounds ABDOMEN: Obese abdomen, no hepatosplenomegaly, active bowel sounds, no guarding or rigidity. SPINE: No scoliosis or deformity SKIN: No rashes CENTRAL NERVOUS SYSTEM: No focal deficits, tone is normal in all 4 extremities. EXTREMITIES: There is no peripheral edema, clubbing, or cyanosis. Peripheral pulses are intact. - Labs CBC & Chem 7: 01/09/24 03:26 01/09/24 03:26 Labs: Abnormal Lab Results - Last 24 Hours (Table) 01/09/24 01/09/24 Range/Units 11:28 16:45 POC Glucose (mg/dL) 133 H 115 H (70-110) mg/dL Assessment and Plan Assessment: acute COPD exacerbation, chest x-ray unremarkable other than a mild retroc ardiac opacity, suspect atelectasis. The patient had a component of hypercapnic respiratory failure acute on chronic and the patient is currently on 2 L of oxygen by nasal cannula and the patient was taken off the BiPAP Acute on chronic hypoxemic respiratory failure, currently off BiPAP and on 3 L of oxygen by nasal cannula Altered mental status, suspect component of acute metabolic encephalopathy and hypercapnia, improving and the patient is much more alert and awake on today's evaluation History of paroxysmal atrial fibrillation/flutter, chronically anticoagulated on Xarelto Sick sinus syndrome the patient has a pacemaker in place History of pulmonary embolism, maintained on anticoagulation with Xarelto History of diabetes mellitus History of adrenal insufficiency, currently on oral hydrocortisone History of hyperthyroidism, on methimazole History of hyperlipidemia History of seizure disorder History of obstructive sleep apnea, without CPAP Chronic pain, maintained on Bristol's outpatient, patient was given a dose of Narcan in the emergency room reportedly without significant response. Frequent falls Morbid obesity, with a BMI of 40.4 kg/m History of anxiety Plan: Monitor respiratory status Use BiPAP overnight Currently on 3 L of O2 nasal cannula Continue DuoNeb [facility] Continue monitoring the mental status and watch for any signs of hypercapnic respiratory failure and CO2 narcosis Procalcitonin level has been low Patient is anticoagulated with Xarelto Patient is currently on metoprolol 150 mg p.o. daily Cardizem 360 mg p.o. daily Continue p.o. hydrocortisone [employer] on the case DNR/DNI CODE STATUS. Will continue to follow.
--- NOTE | 2024-01-10 15:06 | CDI ---
Documentation Clarification Form Date: 01/10/2024 02:16:56 PM From: Patito Billings RN, CCDS Phone: [phone] Admit Date: 01/08/2024 02:13:00 PM Patient Name: Zari Mae Visit Number: [id number] Discharge Date: ATTENTION: The Clinical Documentation Specialists (CDI) and [facility] Coding Staff appreciate your assistance in clarifying documentation. Please respond to the clarification below the line at the bottom and electronically sign. The CDI & [facility] Coding staff will review the response and follow-up if needed. Please note: Queries are made part of the Legal Health Record. If you have any questions, please contact the author of this message via ITS. Dr. James Alarcon Your patient has the documented symptom of Altered Mental Status in the H/P and subsequent progress notes. Additional clarification regarding the etiology/cause of this symptom is requested. History/Risk Factors: Atrial Fibrillation, Atrial Flutter, Asthma, Cancer, Angina, Heart Failure, COPD, Diabetes Mellitus, Fibromyalgia, Hyperlipidemia, Pulmonary Embolus, Seizure Disorder, Thyroid Disorder Clinical Indicators: 78-year-old female presents emergency department from [facility] for altered mental status. She is not able to follow commands. She does wear 4 L of oxygen at home. Possible medication side effect or interaction combination between her pain meds, gabapentin, and Depakote. Patient was giving Narcan will continue to watch for any further complication or side effect. 01/07 (13:11) 136/94 84 14 98 98% BIPAP 01/07 Labs: UDS: Opiates detected, Benzodiazepines -detected; Valproic Acid 36 01/07 CXR: Mild left lower lobe infiltrate. Correlate for atelectasis or pneumonia CT Brain: No acute intracranial process. Treatment: Cardiac/Telemetry Monitoring Neuro checks per protocol Narcan 0.2MG IVP PRN 01/07-01/07 Please clarify the etiology of the symptom of Altered Mental Status: [xx ] Toxic encephalopathy due to Possible medication side effect or interaction combination between her pain meds, gabapentin, and Depakote. Present on admission. [xx ] Metabolic encephalopathy due to acute hypoxic respiratory failure [ ] Other condition (please specify) [ ] Unable to determine (Template Last Revised: September 2020) MTDD
[2024-01-10 16:25] LABS: Glucose,Whole Blood 124 mg/dL (70-110)
[2024-01-10] MEDS: DILTIAZEM CD 120 MG CAP.ER.24H PO STA (16:58)
[2024-01-10 20:02] LABS: Glucose,Whole Blood 150 mg/dL (70-110)
[2024-01-11] MEDS: DILTIAZEM 125 MG in SODIUM CHLORIDE 0.9% 100 ML IV SCH (00:10)
[2024-01-11 00:27] LABS: Glucose,Whole Blood 190 mg/dL (70-110)
[2024-01-11 05:44] LABS: Glucose,Whole Blood 137 mg/dL (70-110)
--- NOTE | 2024-01-11 05:54 | P.PN ---
Subjective Progress Note Date: 01/11/24 HISTORY OF PRESENT ILLNESS: 78-year-old morbidly obese problem [facility] home who was sent to the emergency department [facility] because of altered mental status was known to have multiple medical problem found to be completely confused not responding well she was quite hypoxic she is on chronic respiratory failure on 4 L of oxygen on more regular basis. EMS were called to the scene seen patient who continued to be quite bit confused and significant altered mental status in the having half dose of Narcan she still did not respond well. Continue to be quite hypoxic and putting her on BiPAP and then do bring her to the emergency department at [facility] where was seen and evaluated. She has multiple medical problem on multiple medication and oxygen she was diagnosed with acute respiratory failure with severe carbon dioxide retention as hypercapnia with good ppression related probably to medication and medication interaction with side effect. Also possibility of infection as there possibility of overdose versus seizure activity. Her laboratory value showed with her ABG pCO2 of 78 with HCO3 of 42 pH of 7.35, hemoglobin 14.9 with hematocrit 50.2 with normal white blood cell. Blood sugars mildly elevated with lactic acid 1.7 UA was slightly Positive chemistry with carbon dioxide of 33 BUN of 30 creatinine 1.65 with calcium level slightly be low. Ammonia level was normal at 25 with troponin 0.015. Brain CAT scan shows no acute intracranial process with nonspecific white matter changes secondary to small vessel disease. C atelectasis versus pneumonia. EKG shows normal sinus rhythm with nonspecific finding. Patient was kept on BiPAP continue supportive care will consult pulmonary patient have higher possibly to end up on mechanical ventilation at this point. Hest x-ray showed mild left lower lobe infiltrate correlate with 01/09/2024: Patient remain in ER hold on BiPAP for respiratory distress and failure, continue to have significant confusion and worsening mental status, she still having A-fib with RVR with pulse rate running at 140 bpm despite 10 mg of Cardizem drip, patient be seen cardiology today and she looks like she need to be transferred to the ICU for further management she is remain no code and DO NOT RESUSCITATE at this point we will continue current management with the interaction to medication along possibility of overdose along with her severe COPD exacerbation with severe hypercapnia and CO2 retention. Prognosis at this point specially with was going on with patient cardiopulmonary ramires is very not clear and there is a big possibility for high comorbidity and high mortality at this point. 01/10/2024: Still in mild respiratory failure, still on BiPAP through the night higher flow oxygen daytime with pulse ox little bit better. Still seen pulmonary and agree with the current plan and management. A-fib ramires patient remain on Toprol-XL 100 mg daily, Cardizem CD 180 mg daily still on amiodarone drip started back yesterday and continue anticoagulation. She is responding little bit better today physically but still quite bit confused and still not stable medically at this point. Echocardiogram still pending at this point REVIEW OF SYSTEMS: CONSTITUTIONAL: Mildly obese mild respiratory distress. EYES: No icterus sclerae, no conjunctivitis. EARS, NOSE, MOUTH, THROAT, and FACE: No sore throat, lymphadenopathy, carotid bruits or deformity. RESPIRATORY: Positive shortness of breath cough wheezes. CARDIOVASCULAR: Positive PND orthopnea palpitation no angina. GASTROINTESTINAL: No Abd pain, Nausea or vomiting, no Diarrhea or constipation, No GI Bleed, no distention or masses. GENITOURINARY: Negative for Hematuria or UTI, no kidney stones. INTEGUMENT/BREAST: Negative for any muscular injury with mild osteoarthritis.. HEMATOLOGIC/LYMPHATIC: Negative for bleed or purpura. MUSCULOSKELTAL: Negative for Myalgia or arthralgia. NEURLOGICAL: Significant altered mental status still able to move all 4 extremities with quite bit confused. BEHAVIORAL/PSYCH: Negative. ENDOCRINE: Negative. PHYSICAL EXAMINATION: General Appearance: Confused in mild distress. Neck HEENT: Supple, no lymphadenopathy, no thyroid enlargement, no carotid bruits. Lungs: Decreased breath sound bilaterally with fine rhonchi positive crackles in the bases specially the left side with mild aspect expiratory wheezes. Chest Wall: Decreased expansion with inspiration no deformity no tenderness no rash. Heart: irregular rate and rhythm, S1, S2 positive S3 no gallop. Back: Symmetric, no curvature, ROM normal, no CVA tenderness. Abdomen: Soft, non-tender, bowel sounds active all four quadrants, no masses, no organomegaly. Extremities: Normal no cyanosis trace edema. Pulses: 2+ and symmetric. Skin: Skin color, texture, tugor normal, no rashes or lesions. Neurologic: Severely confused cranial nerves II through XII intact, positive generalized weakness., Not able to do gait exam. ASSESSMENT AND PLAN: _Acute respiratory failure: Combination of cardiac and COPD continue BiPAP continue better management of A-fib and heart failure at this point. _Severe hypercapnia with carbon dioxide retention: Most likely from COPD and suppression of breathing from medication interaction or overdose. Patient will continue BiPAP will be seen pulmonary still on IV furosemide along with updraft treatment [id number]. _A-fib with RVR: Back on amiodarone drip, up on Cardizem CD 280 mg daily and still on metoprolol 100 mg a day remain on Xarelto. _COPD with worsening symptoms and more exacerbation continue DuoNeb continue continue BiPAP continue aggressive nebulizer management. _Possible medication side effect or interaction combination between her pain meds, gabapentin, and Depakote. Patient was giving Narcan will continue to watch for any further complication or side effect. _Type 2 diabetes, remain on NovoLog and Levemir continue Accu-Chek with sliding scales coverage. Blood sugar running in the 100 range. _Adrenal insufficiency: Has been on Cortef and fludrocortisone continue medicati on still using midodrine for hypotension as well. _History of pulmonary embolism: Has been on Xarelto resume medication. _Chronic pain plan: Still on gabapentin and hydrocodone much less on pain meds. _Parkinsonism: Has been on Sinemet as a medication. _History of seizure: Has been on Keppra 1500 mg twice a day. _Hyperlipidemia: Continue Lipitor. _Worsening mental status and mild dementia has been on Aricept 10 mg a day. _Hypothyroidism: Has been on Tapazole 15 mg daily. Prognosis: Poor Discussion: Continue to be critically ill at this point not making much improvement continue to treat A-fib, heart failure, COPD exacerbation, fluid overload and tachycardia at this point is no more interaction or side effect of medication with time has been more clear but patient currently be quite confused she is slightly interactive but continued to be confused. Continue supportive care management her mortality still quite bit high and comorbidities extremely high with complication in the next few days. Objective - Vital Signs Vital signs: Vital Signs Temp 99.0 F 01/10/24 20:00 Pulse 150 H 01/11/24 04:00 Resp 16 01/11/24 04:00 BP 99/63 01/11/24 04:00 Pulse Ox 99 01/11/24 04:00 FiO2 40 01/10/24 23:08 Intake & Output 01/10/24 01/10/24 01/11/24 06:59 18:59 06:59 Intake Total 250 830 120 Output Total 200 150 Balance 50 680 120 Weight 113.398 kg Intake: Intake, IV Titration 250 Amount Amiodarone 450 mg In 250 Dextrose 5% in Water 250 ml @ 0.5 MG/MIN 16.667 mls/hr IV .Q15H [facility] Rx#: [id number] Oral 830 120 Output: Urine 200 150 Other: Voiding Method External Catheter External Catheter External Catheter - Labs CBC & Chem 7: 01/09/24 03:26 01/09/24 03:26 Labs: Abnormal Lab Results - Last 24 Hours (Table) 01/10/24 01/10/24 01/11/24 Range/Units 16:24 20:00 00:26 POC Glucose (mg/dL) 124 H 150 H 190 H (70-110) mg/dL 01/11/24 Range/Units 05:43 POC Glucose (mg/dL) 137 H (70-110) mg/dL
[2024-01-11 07:52] LABS: HCT 50.4 % (34.0-46.0); HGB 15.6 gm/dL (11.4-16.0); MCH 29.9 pg (25.0-35.0); MCV 96.7 fL (80.0-100.0); Mean Platelet Volume 8.9; Platelet Count 221 k/uL (150-450); RBC 5.21 m/uL (3.80-5.40); RDW 14.6 % (11.5-15.5)
[2024-01-11 08:35] LABS: ALT 16 U/L (4-34); AST 56 U/L (14-36); African American GFR (CKD) >90 (>60 ml/min/1.73 sqM); Albumin 3.5 g/dL (3.5-5.0); Alkaline Phosphatase 27 U/L (38-126); Anion Gap 7 mmol/L; Blood Urea Nitrogen 19 mg/dL (7-17); Carbon Dioxide 32 mmol/L (22-30); Chloride 95 mmol/L (98-107); Glucose 156 mg/dL (74-99); Non-African American GFR(CKD) 80 (>60 ml/min/1.73 sqM); Sodium 134 mmol/L (137-145); Total Bilirubin 1.3 mg/dL (0.2-1.3)
[2024-01-11] MEDS: AMIODARONE 450 MG in DEXTROSE 5% IN WATER 250 ML IV SCH (09:30)
[2024-01-11] MEDS: DEXTROSE 5% IN WATER 100 ML with AMIODARONE 150 MG IV ONE (10:32)
[2024-01-11] MEDS: DILTIAZEM CD 240 MG CAP.ER.24H PO SCH (10:32)
[2024-01-11] MEDS: AMIODARONE 360 MG in DEXTROSE 5% IN WATER 200 ML IV ONE (10:32)
[2024-01-11 11:30] LABS: Glucose,Whole Blood 149 mg/dL (70-110)
--- NOTE | 2024-01-11 11:36 | P.PN ---
Subjective Progress Note Date: 01/11/24 Consult reason: atrial flutter, congestive heart failure History of present illness: History of present illness: This is a 78-year-old female patient of Dr. Leong with past medical history of paroxysmal atrial fibrillation on Xarelto, permanent pacemaker, hypertension, dyslipidemia, valvular heart disease, adrenal insufficiency, chronic obstructive pulmonary disease, chronic hypoxic respiratory failure on home O2, history of pulmonary embolism, history of bladder cancer s/p surgery, diabetes mellitus type 2. We have been asked to evaluate the patient for new onset of atrial flutter and CHF. Patient resides at [facility] and due to altered mental status was brought into the emergency center for further evaluation. Patient is currently on BiPAP and has been seen by pulmonary medicine. Patient is unable to provide any reliable information. Patient has been started on Cardizem drip and resumed on Xarelto as well as beta-william. Heart rate is running up to the 140s. EKG #1 sinus rhythm 80 bpm mild nonspecific T wave changes, #[address]/fibrillation, #3 atrial flutter 148 bpm Chest x-ray: Mid left lower lobe infiltrate. Correlate for atelectasis or pneumonia. CT brain no acute intracranial process. WBC 10.7, hemoglobin 15.4. Sodium 143, potassium 4.3, 6 CO2 34, BUN 32 creatinine 0.84. TSH 3.64. Troponin negative x 1. Ammonia level 25. Home cardiac medications: Cardizem CD 180 mg daily, Lasix 10 mg daily, losartan 12.5 mg daily, metoprolol succinate 100 mg daily, Xarelto 20 mg daily, Crestor 20 mg Sunday. Cardiac catheterization in 01/2020 revealed normal coronary arteries Echocardiogram performed in the office on 09/26/2022 revealed EF of 55 to 60%. Moderate concentric left ventricular hypertrophy. Trace aortic regurgitation. Mild mitral regurgitation. Mild tricuspid regurgitation. PASP 33 mmHg. 01/09 Patient is seen today on the cardiac stepdown unit. Her mental status is improved and patient is able to answer questions today. Telemetry is atrial fibrillation around 130 ventricular rate. She has been on Toprol XL 100 mg daily and Cardizem CD1 180 mg daily. Patient was started on amiodarone drip yesterday. For some reason Cardizem drip was discontinued. Blood pressure 109/58. 01/10 Patient is seen today in follow-up. Yesterday, patient was maintained on amiodarone drip but sometime during the night this was discontinued. Cardiology was called during the night and patient was started on Cardizem drip currently at 5 mg/h. Patient continues to have elevated heart rates at 160 bpm. Patient will be resumed back on amnio and Cardizem oral discontinued. So at this time, patient will be continued on Cardizem drip and amiodarone drip. Patient is less responsive this morning. Blood pressure 104/60, pulse ox 95% on 3 L nasal cannula. Repeat blood work reveals hemoglobin 15.6, WBC 11. Sodium 134, potassium 4, CO2 32, BUN 19 creatinine 0.74. Echocardiogram is pending. Physical examination: Gen: This is a morbidly obese 78-year-old female in no acute distress VS: reviewed HEENT: Head is atraumatic, normocephalic. Pupils equal, round. Sclerae is anicteric. NECK: Supple. No JVD. LUNGS: Clear to auscultation. No wheezes or rhonchi. No intercostal retractions. HEART: Irregular rate and rhythm. No murmur. Tachycardic ABDOMEN: Soft No tenderness. EXTREMITIES: No pedal edema. No calf tenderness. Assessment: Typical atrial flutter with poorly controlled rate Paroxysmal atrial fibrillation, currently with RVR Acute on chronic hypoxic respiratory failure secondary to COPD exacerbation, possible pneumonia Sick sinus syndrome status post permanent pacemaker Hypertension Dyslipidemia Valvular heart disease COPD History of pulmonary embolus Remote history of tobacco use Plan: Continue patient's home cardiac medications Continue amiodarone drip and Cardizem drip at 5 mg/h Hold oral Cardizem until patient is weaned off drip Continue increased dose of metoprolol succinate 150 mg daily Continue telemetry monitoring Obtain 2-D echocardiogram and Doppler study to assess cardiac structure and function Further recommendations to follow based upon clinical course Nurse practitioner note has been reviewed, I agree with documented findings and plan of care. Patient was seen and examined. Objective - Vital Signs Vital signs: Vital Signs Temp 99.0 F 01/10/24 20:00 Pulse 150 H 01/11/24 04:00 Resp 16 01/11/24 04:00 BP 99/63 01/11/24 04:00 Pulse Ox 96 01/11/24 08:07 FiO2 40 01/10/24 23:08 Intake & Output 01/10/24 01/11/24 01/11/24 18:59 06:59 18:59 Intake Total 830 120 Output Total 150 300 Balance 680 -180 Weight 113.398 kg Intake: Oral 830 120 Output: Urine 150 300 Other: Voiding Method External Catheter External Catheter - Labs CBC & Chem 7: 01/11/24 07:36 01/11/24 07:36 Labs: Abnormal Lab Results - Last 24 Hours (Table) 01/10/24 01/10/24 01/11/24 Range/Units 16:24 20:00 00:26 WBC (3.8-10.6) k/uL Hct (34.0-46.0) % POC Glucose (mg/dL) 124 H 150 H 190 H (70-110) mg/dL 01/11/24 01/11/24 Range/Units 05:43 07:36 WBC 11.0 H (3.8-10.6) k/uL Hct 50.4 H (34.0-46.0) % POC Glucose (mg/dL) 137 H (70-110) mg/dL
--- NOTE | 2024-01-11 13:06 | P.PN ---
Subjective Progress Note Date: 01/11/24 Patient is a 78-year-old white female with past medical history significant for COPD, chronic hypoxemic respiratory failure, obstructive sleep apnea without CPAP atrial fibrillation and is anticoagulated on Xarelto, pulmonary embolism, adrenal insufficiency, prior splenectomy, type 2 diabetes mellitus, seizure disorder, among many other comorbidities. She is reportedly a halfway resident and resides at [facility]. She was noted to be altered, more so than normal. It was reported that she took her oxygen off at the halfway. On arrival to the emergency room, she was noted to be somnolent. A VBG indicated pCO2 of 78 and pH of 7.35. She is currently resting in bed, on BiPAP with settings 12/6 and FiO2 40%. She is achieving tidal volumes of 350-400 and respiratory rate is in the mid teens. She remains lethargic, but will briefly wake up and answer some questions. According to the nurse, this is an improvement from earlier. She is only oriented to self. I did order a follow- up ABG with current BiPAP settings which shows pO2 of 92, pCO2 of 54, pH of 7.44. Note, that she also has chronic back pain, and takes [place] on outpatient basis. She did receive some Narcan while in the emergency room, reportedly without significant response. She does take Aricept on an outpatient basis, and I am uncertain of her baseline mentation. Noncontrast CT of the brain did not show any acute intracranial process. Chest x-ray done on arrival shows a possible retrocardiac infiltrate versus atelectasis. She has remained afebrile. CBC unremarkable, no leukocytosis. CMP also unremarkable. LFTs not significantly elevated. Ammonia 25. Lactic acid 1.7. Urinalysis not concerning for UTI. Urine tox screen positive for opiates and benzodiazepines. EKG shows normal sinus rhythm without any obvious acute ischemic changes. Troponin 0.015. Current vital signs stable. On today's evaluation of 01/10/2024, the patient is being seen for a follow-up. She is sluggishly responsive. She is able to communicate. She remains in atrial fibrillation. The patient was treated with amiodarone and currently she is on metoprolol at a dose of 150 mg p.o. daily and Cardizem CD to 40 mg p.o. daily. She was taken off the BiPAP this morning and the patient is currently on 3 L of oxygen by nasal cannula. Less tachycardic compared to yesterday. No recent blood work from today. Procalcitonin level was low. TSH is at 3.6. The patient is currently off the amiodarone drip and off the Cardizem drip. Blood pressure is stable for now. He is on chronically on anticoagulation with Xarelto. She is on Levemir insulin 20 units daily and she is also on Cortef 20 mg p.o. twice daily suspecting underlying adrenal insufficiency. On today's evaluation of 01/11/2024, patient is being seen for a follow-up. Patient is very much lethargic and arousable. He has profound weakness in all 4 extremities. Essentially bedridden. Elevated to cough and reach out and grab things with her hands is extremely weak and the patient seems to be quite debilitated at this point in time. Nevertheless, she is arousable and she communicates. No respiratory distress and the patient remains on oxygen at 3 L nasal cannula with a pulse ox of 93%. The white cell count is 11 with a hemoglobin of 15.6 and a platelet count of 221. BUN is 19 with a creatinine of 0.7 and serum bicarb is at 32 with a sodium level of 134 and a potassium level is at 4.0. Cardiology is on the case regarding their history of atrial fibrillation. The patient was maintained on amiodarone drip and this was discontinued. The patient was started on Cardizem drip at 5 mg an hour by cardiology as the patient was still tachycardic with a heart rate of 160. Based on all this, the patient was kept on amiodarone drip and Cardizem is running at 5 mg an hour. Oral Cardizem is on hold and metoprolol dose was adjusted and the patient is currently on a dose of 150 mg p.o. twice a day. Echocardiogram was also ordered by cardiology. Objective - Vital Signs Vital signs: Vital Signs Temp 97.5 F L 01/11/24 08:00 Pulse 154 H 01/11/24 08:00 Resp 20 01/11/24 08:00 BP 117/71 01/11/24 09:51 Pulse Ox 96 01/11/24 08:07 FiO2 40 01/10/24 23:08 Intake & Output 01/10/24 01/11/24 01/11/24 18:59 06:59 18:59 Intake Total 830 120 Output Total 150 300 Balance 680 -180 Weight 113.398 kg Intake: Oral 830 120 Output: Urine 150 300 Other: Voiding Method External Catheter External Catheter - Exam GENERAL EXAM: Lethargic,, communicating, more alert compared to yesterday currently on 3 L of oxygen by nasal cannula HEAD: Normocephalic and atraumatic EYES: Normal reaction of pupils, equal size. NOSE: Clear with pink turbinates. THROAT: No erythema or exudates. NECK: No masses, no JVD. CHEST: No chest wall deformity. LUNGS: Equal air entry with markedly diminished lung sounds bilaterally. CVS: Irregular S1 and S2 normal with no audible murmur, regular rhythm. No extra heart sounds and irregular rhythm consistent with atrial fibrillation. ABDOMEN: Obese abdomen, no hepatosplenomegaly, active bowel sounds, no guarding or rigidity. SPINE: No scoliosis or deformity SKIN: No rashes CENTRAL NERVOUS SYSTEM: No focal deficits, tone is normal in all 4 extremities. EXTREMITIES: There is no peripheral edema, clubbing, or cyanosis. Peripheral pulses are intact. - Labs CBC & Chem 7: 01/11/24 07:36 01/11/24 07:36 Labs: Abnormal Lab Results - Last 24 Hours (Table) 01/10/24 01/10/24 01/11/24 Range/Units 16:24 20:00 00:26 WBC (3.8-10.6) k/uL Hct (34.0-46.0) % Sodium (137-145) mmol/L Chloride (98-107) mmol/L Carbon Dioxide (22-30) mmol/L BUN (7-17) mg/dL Glucose (74-99) mg/dL POC Glucose (mg/dL) 124 H 150 H 190 H (70-110) mg/dL AST (14-36) U/L Alkaline Phosphatase (38-126) U/L Total Protein (6.3-8.2) g/dL 01/11/24 01/11/24 01/11/24 Range/Units 05:43 07:36 07:36 WBC 11.0 H (3.8-10.6) k/uL Hct 50.4 H (34.0-46.0) % Sodium 134 L (137-145) mmol/L Chloride 95 L (98-107) mmol/L Carbon Dioxide 32 H (22-30) mmol/L BUN 19 H (7-17) mg/dL Glucose 156 H (74-99) mg/dL POC Glucose (mg/dL) 137 H (70-110) mg/dL AST 56 H (14-36) U/L Alkaline Phosphatase 27 L (38-126) U/L Total Protein 6.0 L (6.3-8.2) g/dL Assessment and Plan Assessment: acute COPD exacerbation, chest x-ray unremarkable other than a mild retrocardiac opacity, suspect atelectasis. The patient had a component of hypercapnic respiratory failure acute on chronic and the patient is currently on 3 L of oxygen by nasal cannula and the patient was taken off the BiPAP Acute on chronic hypoxemic respiratory failure, currently off BiPAP and on 3 L of oxygen by nasal cannula Altered mental status, suspect component of acute metabolic encephalopathy and hypercapnia, improving and the patient is much more alert and awake on today's evaluation Nevertheless, she has profound debilitated and weak and there is generalized motor weakness in all 4 extremities. History of paroxysmal atrial fibrillation/flutter, chronically anticoagulated on Xarelto, the patient is currently on amiodarone drip, Cardizem drip at 5 mg an hour and metoprolol orally for ongoing issues with atrial fibrillation and rapid ventricular response. Sick sinus syndrome the patient has a pacemaker in place History of pulmonary embolism, maintained on anticoagulation with Xarelto History of diabetes mellitus History of adrenal insufficiency, currently on oral hydrocortisone History of hyperthyroidism, on methimazole History of hyperlipidemia History of seizure disorder History of obstructive sleep apnea, without CPAP Chronic pain, maintained on Somerset's outpatient, patient was given a dose of Narcan in the emergency room reportedly without significant response. Frequent falls Morbid obesity, with a BMI of 40.4 kg/m History of anxiety Plan: Management of A-fib per cardiology Amiodarone drip Cardizem drip at 5 mg an hour Or metoprolol Monitor respiratory status Use BiPAP overnight Currently on 3 L of O2 nasal cannula Continue DuoNeb updrafts Continue monitoring the mental status and watch for any signs of hypercapnic respiratory failure and CO2 narcosis Procalcitonin level has been low Patient is anticoagulated with Xarelto Continue p.o. hydrocortisone Fitness Assistant on the case DNR/DNI CODE STATUS. Will continue to follow.
[2024-01-11 16:21] LABS: Glucose,Whole Blood 176 mg/dL (70-110)
--- NOTE | 2024-01-11 16:31 | P.PN ---
Subjective Progress Note Date: 01/11/24 HISTORY OF PRESENT ILLNESS: 78-year-old morbidly obese problem [facility] home who was sent to the emergency department [facility] because of altered mental status was known to have multiple medical problem found to be completely confused not responding well she was quite hypoxic she is on chronic respiratory failure on 4 L of oxygen on more regular basis. EMS were called to the scene seen patient who continued to be quite bit confused and significant altered mental status in the having half dose of Narcan she still did not respond well. Continue to be quite hypoxic and putting her on BiPAP and then do bring her to the emergency department at [facility] where was seen and evaluated. She has multiple medical problem on multiple medication and oxygen she was diagnosed with acute respiratory failure with severe carbon dioxide retention as hypercapnia with good ppression related probably to medication and medication interaction with side effect. Also possibility of infection as there possibility of overdose versus seizure activity. Her laboratory value showed with her ABG pCO2 of 78 with HCO3 of 42 pH of 7.35, hemoglobin 14.9 with hematocrit 50.2 with normal white blood cell. Blood sugars mildly elevated with lactic acid 1.7 UA was slightly Positive chemistry with carbon dioxide of 33 BUN of 30 creatinine 1.65 with calcium level slightly be low. Ammonia level was normal at 25 with troponin 0.015. Brain CAT scan shows no acute intracranial process with nonspecific white matter changes secondary to small vessel disease. C atelectasis versus pneumonia. EKG shows normal sinus rhythm with nonspecific finding. Patient was kept on BiPAP continue supportive care will consult pulmonary patient have higher possibly to end up on mechanical ventilation at this point. Hest x-ray showed mild left lower lobe infiltrate correlate with 01/09/2024: Patient remain in ER hold on BiPAP for respiratory distress and failure, continue to have significant confusion and worsening mental status, she still having A-fib with RVR with pulse rate running at 140 bpm despite 10 mg of Cardizem drip, patient be seen cardiology today and she looks like she need to be transferred to the ICU for further management she is remain no code and DO NOT RESUSCITATE at this point we will continue current management with the interaction to medication along possibility of overdose along with her severe COPD exacerbation with severe hypercapnia and CO2 retention. Prognosis at this point specially with was going on with patient cardiopulmonary ramires is very not clear and there is a big possibility for high comorbidity and high mortality at this point. 01/10/2024: Still in mild respiratory failure, still on BiPAP through the night higher flow oxygen daytime with pulse ox little bit better. Still seen pulmonary and agree with the current plan and management. A-fib ramires patient remain on Toprol-XL 100 mg daily, Cardizem CD 180 mg daily still on amiodarone drip started back yesterday and continue anticoagulation. She is responding little bit better today physically but still quite bit confused and still not stable medically at this point. Echocardiogram still pending at this point. 12/08/2023: She is still not doing well still in mild distress is very weak in all 4 extremities, still complaining about soreness on the sacrum area which is stage I smaller area being cared for by the nurses and the aide but patient keep complaining about it all the time bother her more than her respiration and pulse rate. She is on 3 L O2 running at 93 percentile, her laboratory value today showing hemoglobin of 15.6 hematocrit 50.4, BUN/creatinine are normal blood sugar still running in the low 100, pulse rate still running in the high 100- 140. She is back on amiodarone drip today still on Cardizem as well. Her COPD exacerbation been well-managed and currently off BiPAP still on O2, her altered mental status still showing acute metabolic encephalopathy with hypercapnia and hypoxia causing the generalized profound weakness. Still having paroxysmal A-fib with pulse rate running over 114 remain on amiodarone drip and Cardizem drip. Patient still critically ill at this point comprehension is not 100 percentile and slightly better lethargic when she talk not able to express herself in full. REVIEW OF SYSTEMS: CONSTITUTIONAL: Mildly obese mild respiratory distress. EYES: No icterus sclerae, no conjunctivitis. EARS, NOSE, MOUTH, THROAT, and FACE: No sore throat, lymphadenopathy, carotid bruits or deformity. RESPIRATORY: Positive shortness of breath cough wheezes. CARDIOVASCULAR: Positive PND orthopnea palpitation no angina. GASTROINTESTINAL: No Abd pain, Nausea or vomiting, no Diarrhea or constipation, No GI Bleed, no distention or masses. GENITOURINARY: Negative for Hematuria or UTI, no kidney stones. INTEGUMENT/BREAST: Negative for any muscular injury with mild osteoarthritis.. HEMATOLOGIC/LYMPHATIC: Negative for bleed or purpura. MUSCULOSKELTAL: Negative for Myalgia or arthralgia. NEURLOGICAL: Significant altered mental status still able to move all 4 extremities with quite bit confused. BEHAVIORAL/PSYCH: Negative. ENDOCRINE: Negative. PHYSICAL EXAMINATION: General Appearance: Confused in mild distress. Neck HEENT: Supple, no lymphadenopathy, no thyroid enlargement, no carotid bruits. Lungs: Decreased breath sound bilaterally with fine rhonchi positive crackles in the bases specially the left side with mild aspect expiratory wheezes. Chest Wall: Decreased expansion with inspiration no deformity no tenderness no rash. Heart: irregular rate and rhythm, S1, S2 positive S3 no gallop. Back: Symmetric, no curvature, ROM normal, no CVA tenderness. Abdomen: Soft, non-tender, bowel sounds active all four quadrants, no masses, no organomegaly. Extremities: Normal no cyanosis trace edema. Pulses: 2+ and symmetric. Skin: Skin color, texture, tugor normal, no rashes or lesions. Neurologic: Severely confused cranial nerves II through XII intact, positive generalized weakness., Not able to do gait exam. ASSESSMENT AND PLAN: _Acute respiratory failure: Combination of cardiac and COPD continue BiPAP continue better management of A-fib and heart failure at this point. _COPD exacerbation: Remain on O2, steroid, Mixup with drug treatment, still seen pulmonary as well. _Severe hypercapnia with carbon dioxide retention: Most likely from COPD and suppression of breathing from medication interaction or overdose. Continue O2 of BiPAP. _A-fib with RVR: Back on amiodarone drip, still on Cardizem drip remain on metoprolol 100 mg twice a day along with Xarelto. _Possible medication side effect or interaction combination between her pain meds, gabapentin, and Depakote. Slightly better so far specially that patient has not been on any of her original medication yet. _Type 2 diabetes, remain on NovoLog and Levemir continue Accu-Chek with sliding scales coverage. Blood sugar running in the 100 range. _Adrenal insufficiency: Has been on Cortef and fludrocortisone continue medicat ion still using midodrine for hypotension as well. _History of pulmonary embolism: Has been on Xarelto resume medication. _Chronic pain plan: Still on gabapentin and hydrocodone much less on pain meds. _Parkinsonism: Has been on Sinemet as a medication. _ Decub ulcer: Stage I very small on the buttocks area will continue topical care along with skin barrier for now. _History of seizure: Has been on Keppra 1500 mg twice a day. _Hyperlipidemia: Continue Lipitor. _Worsening mental status and mild dementia has been on Aricept 10 mg a day. _Hypothyroidism: Has been on Tapazole 15 mg daily. Prognosis: Poor Discussion: Patient still not doing well continue having significant respiratory failure and shortness of breath along with A-fib with RVR worsening heart failure still very lethargic debilitated not been able to participate much physical activity and still bedridden at this point. Objective - Vital Signs Vital signs: Vital Signs Temp 99.0 F 01/10/24 20:00 Pulse 150 H 01/11/24 04:00 Resp 16 01/11/24 04:00 BP 99/63 01/11/24 04:00 Pulse Ox 99 01/11/24 04:00 FiO2 40 01/10/24 23:08 Intake & Output 01/10/24 01/10/24 01/11/24 06:59 18:59 06:59 Intake Total 250 830 120 Output Total 200 150 Balance 50 680 120 Weight 113.398 kg Intake: Intake, IV Titration 250 Amount Amiodarone 450 mg In 250 Dextrose 5% in Water 250 ml @ 0.5 MG/MIN 16.667 mls/hr IV .Q15H [facility] Rx#: [id number] Oral 830 120 Output: Urine 200 150 Other: Voiding Method External Catheter External Catheter External Catheter - Labs CBC & Chem 7: 01/11/24 07:36 01/11/24 07:36 Labs: Abnormal Lab Results - Last 24 Hours (Table) 01/10/24 01/10/24 01/11/24 Range/Units 16:24 20:00 00:26 POC Glucose (mg/dL) 124 H 150 H 190 H (70-110) mg/dL 01/11/24 Range/Units 05:43 POC Glucose (mg/dL) 137 H (70-110) mg/dL
[2024-01-11 20:17] LABS: Glucose,Whole Blood 132 mg/dL (70-110)
[2024-01-11] MEDS: ACETAMINOPHEN TAB 325 MG TAB PO PRN (20:49)
[2024-01-12 06:31] LABS: Glucose,Whole Blood 139 mg/dL (70-110)
[2024-01-12 09:12] LABS: Glucose,Whole Blood 132 mg/dL (70-110)
--- NOTE | 2024-01-12 09:34 | P.PN ---
Subjective Progress Note Date: 01/12/24 Consult reason: atrial flutter, congestive heart failure History of present illness: This is a 78-year-old female patient of Dr. Leong with past medical history of paroxysmal atrial fibrillation on Xarelto, permanent pacemaker, hypertension, dyslipidemia, valvular heart disease, adrenal insufficiency, chronic obstructive pulmonary disease, chronic hypoxic respiratory failure on home O2, history of pulmonary embolism, history of bladder cancer s/p surgery, diabetes mellitus type 2. We have been asked to evaluate the patient for new onset of atrial fl utter and CHF. Patient resides at [facility] and due to altered mental status was brought into the emergency center for further evaluation. Patient is currently on BiPAP and has been seen by pulmonary medicine. Patient is unable to provide any reliable information. Patient has been started on Cardizem drip and resumed on Xarelto as well as beta-william. Heart rate is running up to the 140s. EKG #1 sinus rhythm 80 bpm mild nonspecific T wave changes, #2 atrial flutter/fibrillation, #3 atrial flutter 148 bpm Chest x-ray: Mid left lower lobe infiltrate. Correlate for atelectasis or pneumonia. CT brain no acute intracranial process. WBC 10.7, hemoglobin 15.4. Sodium 143, potassium 4.3, 6 CO2 34, BUN 32 creatinine 0.84. TSH 3.64. Troponin negative x 1. Ammonia level 25. Home cardiac medications: Cardizem CD 180 mg daily, Lasix 10 mg daily, losartan 12.5 mg daily, metoprolol succinate 100 mg daily, Xarelto 20 mg daily, Crestor 20 mg Sunday. Cardiac catheterization in 01/2020 revealed normal coronary arteries Echocardiogram performed in the office on 09/26/2022 revealed EF of 55 to 60%. Moderate concentric left ventricular hypertrophy. Trace aortic regurgitation. Mild mitral regurgitation. Mild tricuspid regurgitation. PASP 33 mmHg. 01/09 Patient is seen today on the cardiac stepdown unit. Her mental status is improved and patient is able to answer questions today. Telemetry is atrial fibrillation around 130 ventricular rate. She has been on Toprol XL 100 mg daily and Cardizem CD1 180 mg daily. Patient was started on amiodarone drip yesterday. For some reason Cardizem drip was discontinued. Blood pressure 109/58. 01/10 Patient is seen today in follow-up. Yesterday, patient was maintained on amiodarone drip but sometime during the night this was discontinued. Cardiology was called during the night and patient was started on Cardizem drip currently at 5 mg/h. Patient continues to have elevated heart rates at 160 bpm. Patient will be resumed back on amnio and Cardizem oral discontinued. So at this time, patient will be continued on Cardizem drip and amiodarone drip. Patient is less responsive this morning. Blood pressure 104/60, pulse ox 95% on 3 L nasal cannula. Repeat blood work reveals hemoglobin 15.6, WBC 11. Sodium 134, potassium 4, CO2 32, BUN 19 creatinine 0.74. Echocardiogram is pending. 01/11 We have had ongoing difficulty controlling patient's heart rate. Yesterday she was on both Cardizem drip and amiodarone drip and she was maintained on metoprolol succinate 150 mg daily. This morning, patient remains in atrial fibrillation but rate is controlled in the 90s. Blood pressure 107/61. Patient was less responsive yesterday. Echocardiogram has been obtained and report is pending. Physical examination: Gen: This is a morbidly obese 78-year-old female in no acute distress VS: reviewed HEENT: Head is atraumatic, normocephalic. Pupils equal, round. Sclerae is anicteric. NECK: Supple. No JVD. LUNGS: Clear to auscultation. No wheezes or rhonchi. No intercostal retractions. HEART: Irregular rate and rhythm. No murmur. ABDOMEN: Soft No tenderness. EXTREMITIES: No pedal edema. No calf tenderness. Assessment: Typical atrial flutter with poorly controlled rate Paroxysmal atrial fibrillation, currently with RVR Acute on chronic hypoxic respiratory failure secondary to COPD exacerbation, possible pneumonia Sick sinus syndrome status post permanent pacemaker Hypertension Dyslipidemia Valvular heart disease COPD History of pulmonary embolus Remote history of tobacco use Plan: Continue patient's home cardiac medications Discontinue amiodarone drip and Cardizem drip Start oral Cardizem 60 mg 3 times daily and amiodarone 400 mg twice daily Continue increased dose of metoprolol succinate 150 mg daily Continue telemetry monitoring Obtain 2-D echocardiogram and Doppler study report Further recommendations to follow based upon clinical course Nurse practitioner note has been reviewed, I agree with documented findings and plan of care. Patient was seen and examined. Objective - Vital Signs Vital signs: Vital Signs Temp 97.9 F 01/12/24 03:37 Pulse 99 01/12/24 03:37 Resp 14 01/12/24 03:37 BP 107/61 01/12/24 03:37 Pulse Ox 94 L 01/12/24 03:37 FiO2 40 01/10/24 23:08 Intake & Output 01/11/24 01/12/24 01/12/24 18:59 06:59 18:59 Intake Total 527.083 250 Output Total 350 225 Balance 177.083 25 Intake: Intake, IV Titration 317.083 250 Amount Amiodarone 450 mg In 166 250 Dextrose 5% in Water 250 ml @ 0.5 MG/MIN 16.667 mls/hr IV .Q15H [facility] Rx#: [id number] Diltiazem 125 mg In 151.083 Sodium Chloride 0.9% 100 ml @ 5 MG/HR 5 mls/hr IV .Q24H [facility] Rx#:[id number] Oral 210 Output: Urine 350 225 Other: Voiding Method Indwelling Catheter Indwelling Catheter - Labs CBC & Chem 7: 01/11/24 07:36 01/11/24 07:36 Labs: Abnormal Lab Results - Last 24 Hours (Table) 01/11/24 01/11/24 01/11/24 Range/Units 07:36 11:29 16:20 Sodium 134 L (137-145) mmol/L Chloride 95 L (98-107) mmol/L Carbon Dioxide 32 H (22-30) mmol/L BUN 19 H (7-17) mg/dL Glucose 156 H (74-99) mg/dL POC Glucose (mg/dL) 149 H 176 H (70-110) mg/dL AST 56 H (14-36) U/L Alkaline Phosphatase 27 L (38-126) U/L Total Protein 6.0 L (6.3-8.2) g/dL 01/11/24 01/12/24 Range/Units 20:05 05:54 Sodium (137-145) mmol/L Chloride (98-107) mmol/L Carbon Dioxide (22-30) mmol/L BUN (7-17) mg/dL Glucose (74-99) mg/dL POC Glucose (mg/dL) 132 H 139 H (70-110) mg/dL AST (14-36) U/L Alkaline Phosphatase (38-126) U/L Total Protein (6.3-8.2) g/dL
[2024-01-12] MEDS: AMIODARONE 200 MG TAB PO SCH (09:51)
[2024-01-12] MEDS: DILTIAZEM ORAL 60 MG TAB PO SCH (09:51)
--- NOTE | 2024-01-12 11:30 | CA ---
Transthoracic Echo Report Name: Zari Mae Age: 78 Gender: F : 1945 Exam Date: 01/11/2024 15:32 Exam Location: [facility] Ht (in): 66 Wt (lb): 250 Ordering Physician: Matilda Dillard Attending/Referring Phys: [id number], Gilma Styrene Dehydration Reactor Operator Christianne Hooker RDCS Procedure CPT: Indications: LVF Cardiac Hx: Technical Quality: Technically difficult study Contrast 1: Total Dose (mL): Contrast 2: Total Dose (mL): MEASUREMENTS (Male / Female) Normal Values 2D ECHO LVOT Diameter 1.9 cm LA Volume 42.7 cm??? 18 - 58 / 22 - 52 cm??? LA Volume Index 18.1 cm???/m??? 16 - 28 cm???/m??? Ascending Aorta Diameter 3.5 cm DOPPLER AV Peak Velocity 95.3 cm/s AV Peak Gradient 3.6 mmHg AV Mean Velocity 66.8 cm/s AV Mean Gradient 2.0 mmHg AV Velocity Time Integral 13.7 cm LVOT Peak Velocity 74.2 cm/s LVOT Peak Gradient 2.2 mmHg LVOT Velocity Time Integral 11.1 cm LVOT Stroke Volume 32.2 cm??? LVOT Stroke Volume Index 14.6 ml/m??? LVOT Cardiac Index 1408.4 cm???/min???m??? AV Area Cont Eq vti 2.4 cm??? AV Area Cont Eq pk 2.3 cm??? PV Peak Velocity 84.0 cm/s PV Peak Gradient 2.8 mmHg FINDINGS Left Ventricle Left ventricular ejection fraction is estimated at 45-50%. Unable to accurately assess regional motion abnormalities. Left ventricular cavity size normal by visual estimate. Right Ventricle Right ventricle not well visualized. Right Atrium Normal right atrial size. Left Atrium Normal left atrial size. Mitral Valve Structurally normal mitral valve. No mitral stenosis, regurgitation or prolapse. Aortic Valve Trileaflet aortic valve. No aortic valve stenosis or regurgitation. Tricuspid Valve Structurally normal tricuspid valve. No tricuspid stenosis, regurgitation or prolapse. Pulmonic Valve Pulmonic valve not well visualized. No pulmonic stenosis. Trace pulmonic regurgitation. Pericardium No pericardial effusion. Aorta Normal size aortic root and proximal ascending aorta. CONCLUSIONS Technically difficult study Left ventricular ejection fraction 45-50% No mitral regurgitation Trace pulmonic regurgitation No pericardial effusion Previewed by: Dr. Farrukh Armenta DO (Electronically Signed) Final Date: 12 Jan 2024 11:29
[2024-01-12 12:04] LABS: Glucose,Whole Blood 142 mg/dL (70-110)
--- NOTE | 2024-01-12 13:03 | P.PN ---
Subjective Progress Note Date: 01/12/24 78-year-old morbidly obese problem [facility] home who was sent to the emergency department [facility] because of altered mental status was known to have multiple medical problem found to be completely confused not responding well she was quite hypoxic she is on chronic respiratory failure on 4 L of oxygen on more regular basis. EMS were called to the scene seen patient who continued to be quite bit confused and significant altered mental status in the having half dose of Narcan she still did not respond well. Continue to be quite hypoxic and putting her on BiPAP and then do bring her to the emergency department at [facility] where was seen and evaluated. She has multiple medical probl em on multiple medication and oxygen she was diagnosed with acute respiratory failure with severe carbon dioxide retention as hypercapnia with suppression related probably to medication and medication interaction with side effect. Also possibility of infection as there possibility of overdose versus seizure activity. Her laboratory value showed with her ABG pCO2 of 78 with HCO3 of 42 pH of 7.35, hemoglobin 14.9 with hematocrit 50.2 with normal white blood cell. Blood sugars mildly elevated with lactic acid 1.7 UA was slightly Positive chemistry with carbon dioxide of 33 BUN of 30 creatinine 1.65 with calcium level slightly below. Ammonia level was normal at 25 with troponin 0.015. Brain CAT scan shows no acute intracranial process with nonspecific white matter changes secondary to small vessel disease. C atelectasis versus pneumonia. EKG shows normal sinus rhythm with nonspecific finding. Patient was kept on BiPAP continue supportive care will consult pulmonary patient have higher possibly to end up on mechanical ventilation at this point. Hest x-ray showed mild left lower lobe infiltrate correlate with 01/09/2024: Patient remain in ER hold on BiPAP for respiratory distress and failure, continue to have significant confusion and worsening mental status, she still having A-fib with RVR with pulse rate running at 140 bpm despite 10 mg of Cardizem drip, patient be seen cardiology today and she looks like she need to be transferred to the ICU for further management she is remain no code and DO NOT RESUSCITATE at this point we will continue current management with the interaction to medication along possibility of overdose along with her severe CO PD exacerbation with severe hypercapnia and CO2 retention. Prognosis at this point specially with was going on with patient cardiopulmonary ramires is very not clear and there is a big possibility for high comorbidity and high mortality at this point. 01/10/2024: Still in mild respiratory failure, still on BiPAP through the night higher flow oxygen daytime with pulse ox little bit better. Still seen pulmonary and agree with the current plan and management. A-fib ramires patient remain on Toprol-XL 100 mg daily, Cardizem CD 180 mg daily still on amiodarone drip started back yesterday and continue anticoagulation. She is responding little bit better today physically but still quite bit co nfused and still not stable medically at this point. Echocardiogram still pending at this point. 12/12/2023: She is still not doing well still in mild distress is very weak in all 4 extremities, still complaining about soreness on the sacrum area which is stage I smaller area being cared for by the nurses and the aide but patient keep complaining about it all the time bother her more than her respiration and pulse rate. She is on 3 L O2 running at 93 percentile, her laboratory value today showing hemoglobin of 15.6 hematocrit 50.4, BUN/creatinine are normal blood sugar still running in the low 100, pulse rate still running in the high 100- 140. She is back on amiodarone drip today still on Cardizem as well. Her COPD exacerbation been well-managed and currently off BiPAP still on O2, her altered mental status still showing acute metabolic encephalopathy with hypercapnia and hypoxia causing the generalized profound weakness. Still having paroxysmal A-fib with pulse rate running over 114 remain on amiodarone drip and Cardizem drip. Patient still critically ill at this point comprehension is not 100 percentile and slightly better lethargic when she talk not able to express herself in full. 12/12. Patient seen and examined. Patient was switched from IV amiodarone to oral amiodarone. Denies any shortness of breath denies any chest pain. REVIEW OF SYSTEMS: CONSTITUTIONAL: No fever, no malaise,. CARDIOVASCULAR: No chest pain, no palpitations, no syncope. PULMONARY: No shortness of breath, no cough, GASTROINTESTINAL: No diarrhea, no nausea, no vomiting, no abdominal pain. NEUROLOGICAL: No headaches, no weakness, PHYSICAL EXAMINATION: GENERAL: The patient is alert and oriented x3, not in any acute distress. HEENT: Pupils are round and equally reacting to light. EOMI. No scleral icterus. No conjunctival pallor. Normocephalic, atraumatic. No pharyngeal erythema. No thyromegaly. CARDIOVASCULAR: S1 and S2 present. No murmurs, rubs, or gallops. PULMONARY: Chest is clear to auscultation, no wheezing or crackles. ABDOMEN: Soft, nontender, nondistended, normoactive bowel sounds. No palpable organomegaly. MUSCULOSKELETAL: No joint swelling or deformity. EXTREMITIES: No cyanosis, clubbing, or pedal edema. NEUROLOGICAL: Gross neurological examination did not reveal any focal deficits. SKIN: No rashes. Assessment and plan _Acute respiratory failure: _COPD exacerbation: _Severe hypercapnia with carbon dioxide retention: Monitor vital sign Monitor CBC Monitor CMP Continue BiPAP as needed Continue oxygen supplementation Continue breathing treatments Pulmonology following _A-fib with RVR: Continue telemetry monitoring Continue amiodarone and Xarelto Cardiology following _Possible medication side effect or interaction combination between her pain meds, gabapentin, and Depakote. Slightly better so far specially that patient has not been on any of her original medication yet. _Type 2 diabetes Monitor blood sugar levels, continue current insulin regimen _Adrenal insufficiency: Has been on Cortef and fludrocortisone continue medica tion still using midodrine for hypotension as well. _History of pulmonary embolism: Continue Xarelto _Chronic pain plan: Continue pain management _Parkinsonism: Has been on Sinemet as a medication. _ Decub ulcer: Stage I very small on the buttocks area, continue wound care _History of seizure: Has been on Keppra 1500 mg twice a day. _Hyperlipidemia: Continue Lipitor. _Worsening mental status and mild dementia has been on Aricept 10 mg a day. _Hypothyroidism: Has been on Tapazole 15 mg daily. Labs and medication were reviewed.. Continue same treatment. Continue with symptomatic treatment. Resume home medication. Monitor labs and vitals. DVT and GI prophylaxis. Further recommendations as per clinical course of the patient Dictation was produced using [employer] dictation software. please excuse any grammatical, word or spelling errors. Objective - Vital Signs Vital signs: Vital Signs Temp 98.1 F 01/12/24 09:05 Pulse 101 H 01/12/24 09:10 Resp 14 01/12/24 09:05 BP 106/71 01/12/24 09:05 Pulse Ox 98 01/12/24 09:05 FiO2 40 01/10/24 23:08 Intake & Output 01/11/24 01/12/24 01/12/24 18:59 06:59 18:59 Intake Total 527.083 250 77.417 Output Total 350 225 Balance 177.083 25 77.417 Intake: Intake, IV Titration 317.083 250 77.417 Amount Amiodarone 450 mg In 166 250 Dextrose 5% in Water 250 ml @ 0.5 MG/MIN 16.667 mls/hr IV .Q15H RAULITO Rx#: [id number] Diltiazem 125 mg In 151.083 77.417 Sodium Chloride 0.9% 100 ml @ 5 MG/HR 5 mls/hr IV .Q24H RAULITO Rx#:[id number] Oral 210 Output: Urine 350 225 Other: Voiding Method Indwelling Catheter Indwelling Catheter Indwelling Catheter - Labs CBC & Chem 7: 01/11/24 07:36 01/11/24 07:36 Labs: Abnormal Lab Results - Last 24 Hours (Table) 01/11/24 01/11/24 01/11/24 Range/Units 11:29 16:20 20:05 POC Glucose (mg/dL) 149 H 176 H 132 H (70-110) mg/dL 01/12/24 01/12/24 Range/Units 05:54 09:11 POC Glucose (mg/dL) 139 H 132 H (70-110) mg/dL
--- NOTE | 2024-01-12 13:39 | P.PN ---
Subjective Progress Note Date: 01/12/24 Patient is a 78-year-old white female with past medical history significant for COPD, chronic hypoxemic respiratory failure, obstructive sleep apnea without CPAP atrial fibrillation and is anticoagulated on Xarelto, pulmonary embolism, adrenal insufficiency, prior splenectomy, type 2 diabetes mellitus, seizure disorder, among many other comorbidities. She is reportedly a [facility] resident and resides at [facility]. She was noted to be altered, more so than normal. It was reported that she took her oxygen off at the [facility]. On arrival to the emergency room, she was noted to be somnolent. A VBG indicated pCO2 of 78 and pH of 7.35. She is currently resting in bed, on BiPAP with settings 12/6 and FiO2 40%. She is achieving tidal volumes of 350-400 and respiratory rate is in the mid teens. She remains lethargic, but will briefly wake up and answer some questions. According to the nurse, this is an improvement from earlier. She is only oriented to self. I did order a follow- up ABG with current BiPAP settings which shows pO2 of 92, pCO2 of 54, pH of 7.44. Note, that she also has chronic back pain, and takes Pesotum on outpatient basis. She did receive some Narcan while in the emergency room, reportedly without significant response. She does take Aricept on an outpatient basis, and I am uncertain of her baseline mentation. Noncontrast CT of the brain did not show any acute intracranial process. Chest x-ray done on arrival shows a possible retrocardiac infiltrate versus atelectasis. She has remained afebrile. CBC unremarkable, no leukocytosis. CMP also unremarkable. LFTs not significantly elevated. Ammonia 25. Lactic acid 1.7. Urinalysis not concerning for UTI. Urine tox screen positive for opiates and benzodiazepines. EKG shows normal sinus rhythm without any obvious acute ischemic changes. Troponin 0.015. Current vital signs stable. On today's evaluation of 01/10/2024, the patient is being seen for a follow-up. She is sluggishly responsive. She is able to communicate. She remains in atrial fibrillation. The patient was treated with amiodarone and currently she is on metoprolol at a dose of 150 mg p.o. daily and Cardizem CD to 40 mg p.o. daily. She was taken off the BiPAP this morning and the patient is currently on 3 L of oxygen by nasal cannula. Less tachycardic compared to yesterday. No recent blood work from today. Procalcitonin level was low. TSH is at 3.6. The patient is currently off the amiodarone drip and off the Cardizem drip. Blood pressure is stable for now. He is on chronically on anticoagulation with Xarelto. She is on Levemir insulin 20 units daily and she is also on Cortef 20 mg p.o. twice daily suspecting underlying adrenal insufficiency. On today's evaluation of 01/11/2024, patient is being seen for a follow-up. Patient is very much lethargic and arousable. He has profound weakness in all 4 extremities. Essentially bedridden. Elevated to cough and reach out and grab things with her hands is extremely weak and the patient seems to be quite debilitated at this point in time. Nevertheless, she is arousable and she communicates. No respiratory distress and the patient remains on oxygen at 3 L nasal cannula with a pulse ox of 93%. The white cell count is 11 with a hemoglobin of 15.6 and a platelet count of 221. BUN is 19 with a creatinine of 0.7 and serum bicarb is at 32 with a sodium level of 134 and a potassium level is at 4.0. Cardiology is on the case regarding their history of atrial fibrillation. The patient was maintained on amiodarone drip and this was discontinued. The patient was started on Cardizem drip at 5 mg an hour by cardiology as the patient was still tachycardic with a heart rate of 160. Based on all this, the patient was kept on amiodarone drip and Cardizem is running at 5 mg an hour. Oral Cardizem is on hold and metoprolol dose was adjusted and the patient is currently on a dose of 150 mg p.o. twice a day. Echocardiogram was also ordered by cardiology. 01/12/2024, the patient is being seen for a follow-up. Patient is very lethargic, somnolent and undergoes limited communication. She is arousable. She is essentially bedridden. Motor functions are quite weak in all 4 extremities and the patient says only few words upon stimulation. She denies having any chest pain. She denies having any shortness of breath. She remains on oxygen 3 L/min nasal cannula. No new labs from today. She remains in atrial fibrillation at the rate is under better control for now. She is on a combination of medications and drips have been essentially discontinued including amiodarone and Cardizem drip and the patient is currently on metoprolol at a dose of 150 mg p.o. daily and Cardizem 60 mg p.o. 3 times daily. She remains on amiodarone 5 mg p.o. twice daily. She is on Xarelto. She is on Cortef for suspected adrenal insufficiency. She is on Lasix 10 mg p.o. daily. Objective - Vital Signs Vital signs: Vital Signs Temp 98.1 F 01/12/24 09:05 Pulse 101 H 01/12/24 09:10 Resp 14 01/12/24 09:05 BP 106/71 01/12/24 09:05 Pulse Ox 98 01/12/24 09:05 FiO2 40 01/10/24 23:08 Intake & Output 01/11/24 01/12/24 01/12/24 18:59 06:59 18:59 Intake Total 527.083 250 77.417 Output Total 350 225 Balance 177.083 25 77.417 Intake: Intake, IV Titration 317.083 250 77.417 Amount Amiodarone 450 mg In 166 250 Dextrose 5% in Water 250 ml @ 0.5 MG/MIN 16.667 mls/hr IV .Q15H [facility]ITO Rx#: [id number] Diltiazem 125 mg In 151.083 77.417 Sodium Chloride 0.9% 100 ml @ 5 MG/HR 5 mls/hr IV .Q24H RAULITO Rx#:[id number] Oral 210 Output: Urine 350 225 Other: Voiding Method Indwelling Catheter Indwelling Catheter Indwelling Catheter - Exam GENERAL EXAM: Lethargic,, communicating, more alert compared to yesterday currently on 3 L of oxygen by nasal cannula HEAD: Normocephalic and atraumatic EYES: Normal reaction of pupils, equal size. NOSE: Clear with pink turbinates. THROAT: No erythema or exudates. NECK: No masses, no JVD. CHEST: No chest wall deformity. LUNGS: Equal air entry with markedly diminished lung sounds bilaterally. CVS: Irregular S1 and S2 normal with no audible murmur, regular rhythm. No extra heart sounds and irregular rhythm consistent with atrial fibrillation. ABDOMEN: Obese abdomen, no hepatosplenomegaly, active bowel sounds, no guarding or rigidity. SPINE: No scoliosis or deformity SKIN: No rashes CENTRAL NERVOUS SYSTEM: No focal deficits, tone is normal in all 4 extremities. EXTREMITIES: There is no peripheral edema, clubbing, or cyanosis. Peripheral pulses are intact. - Labs CBC & Chem 7: 01/11/24 07:36 01/11/24 07:36 Labs: Abnormal Lab Results - Last 24 Hours (Table) 01/11/24 01/11/24 01/11/24 Range/Units 11:29 16:20 20:05 POC Glucose (mg/dL) 149 H 176 H 132 H (70-110) mg/dL 01/12/24 01/12/24 Range/Units 05:54 09:11 POC Glucose (mg/dL) 139 H 132 H (70-110) mg/dL Assessment and Plan Assessment: acute COPD exacerbation, chest x-ray unremarkable other than a mild retrocardiac opacity, suspect atelectasis. The patient had a component of hypercapnic respiratory failure acute on chronic and the patient is currently on 3 L of oxygen by nasal cannula and the patient was taken off the BiPAP Acute on chronic hypoxemic respiratory failure, currently off BiPAP and on 3 L of oxygen by nasal cannula Altered mental status, suspect component of acute metabolic encephalopathy and hypercapnia, improving and the patient is much more alert and awake on today's evaluation Nevertheless, she has profound debilitated and weak and there is generalized motor weakness in all 4 extremities. History of paroxysmal atrial fibrillation/flutter, chronically anticoagulated on Xarelto, the patient is currently on amiodarone drip, Cardizem drip at 5 mg an hour and metoprolol orally for ongoing issues with atrial fibrillation and rapid ventricular response. Sick sinus syndrome the patient has a pacemaker in place History of pulmonary embolism, maintained on anticoagulation with Xarelto History of diabetes mellitus History of adrenal insufficiency, currently on oral hydrocortisone History of hyperthyroidism, on methimazole History of hyperlipidemia History of seizure disorder History of obstructive sleep apnea, without CPAP Chronic pain, maintained on Pesotum's outpatient, patient was given a dose of Narcan in the emergency room reportedly without significant response. Frequent falls Morbid obesity, with a BMI of 40.4 kg/m History of anxiety Plan: No change in her condition Respiratory status stable at 3 L of O2 nasal cannula Management of A-fib per cardiology Amiodarone drip has been discontinued. Cardizem drip has been discontinued. Cardizem 60 mg p.o. 3 times daily Oral amiodarone Oral metoprolol 150 mg p.o. daily. Monitor respiratory status Use BiPAP overnight Currently on 3 L of O2 nasal cannula Continue DuoNeb updrafts Continue monitoring the mental status and watch for any signs of hypercapnic respiratory failure and CO2 narcosis Procalcitonin level has been low Patient is anticoagulated with Xarelto Continue p.o. hydrocortisone Physician Credentialing Specialist on the case Very much lethargic, quite debilitated. Resting comfortably in bed. Excessive motor weakness in all 4 extremities. Bedridden. DNR/DNI CODE STATUS. Will continue to follow.
[2024-01-12 16:53] LABS: Glucose,Whole Blood 221 mg/dL (70-110)
[2024-01-12 20:09] LABS: Glucose,Whole Blood 153 mg/dL (70-110)
[2024-01-13 06:13] LABS: Glucose,Whole Blood 123 mg/dL (70-110)
[2024-01-13 07:48] LABS: Glucose,Whole Blood 121 mg/dL (70-110)
[2024-01-13 08:00] LABS: Basophils % (A) 0 %; Eosinophils # (A) 0.1 k/uL (0-0.7); Eosinophils % (A) 0 %; HCT 48.9 % (34.0-46.0); HGB 14.8 gm/dL (11.4-16.0); Lymphocytes % (A) 29 %; MCH 29.7 pg (25.0-35.0); MCHC 30.3 g/dL (31.0-37.0); MCV 97.9 fL (80.0-100.0); Mean Platelet Volume 9.4; Monocytes % (A) 9 %; Neutrophils % (A) 58 %; Platelet Count 209 k/uL (150-450); RBC 4.99 m/uL (3.80-5.40); RDW 14.5 % (11.5-15.5); WBC 10.4 k/uL (3.8-10.6)
[2024-01-13 08:28] LABS: ALT 15 U/L (4-34); AST 30 U/L (14-36); African American GFR (CKD) >90 (>60 ml/min/1.73 sqM); Albumin 3.2 g/dL (3.5-5.0); Alkaline Phosphatase 22 U/L (38-126); Anion Gap 7 mmol/L; Blood Urea Nitrogen 17 mg/dL (7-17); Calcium 8.7 mg/dL (8.4-10.2); Carbon Dioxide 32 mmol/L (22-30); Chloride 95 mmol/L (98-107); Glucose 122 mg/dL (74-99); Non-African American GFR(CKD) 86 (>60 ml/min/1.73 sqM); Potassium 4.3 mmol/L (3.5-5.1); Sodium 134 mmol/L (137-145); Total Protein 5.6 g/dL (6.3-8.2)
[2024-01-13 11:45] VITALS: BMI 40.3
[2024-01-13 12:12] LABS: Glucose,Whole Blood 134 mg/dL (70-110)
--- NOTE | 2024-01-13 12:48 | P.PN ---
Subjective Progress Note Date: 01/13/24 78-year-old morbidly obese problem [facility] home who was sent to the emergency department [facility] because of altered mental status was known to have multiple medical problem found to be completely confused not responding well she was quite hypoxic she is on chronic respiratory failure on 4 L of oxygen on more regular basis. EMS were called to the scene seen patient who continued to be quite bit confused and significant altered mental status in the having half dose of Narcan she still did not respond well. Continue to be quite hypoxic and putting her on BiPAP and then do bring her to the emergency department at [facility] where was seen and evaluated. She has multiple medical probl em on multiple medication and oxygen she was diagnosed with acute respiratory failure with severe carbon dioxide retention as hypercapnia with suppression related probably to medication and medication interaction with side effect. Also possibility of infection as there possibility of overdose versus seizure activity. Her laboratory value showed with her ABG pCO2 of 78 with HCO3 of 42 pH of 7.35, hemoglobin 14.9 with hematocrit 50.2 with normal white blood cell. Blood sugars mildly elevated with lactic acid 1.7 UA was slightly Positive chemistry with carbon dioxide of 33 BUN of 30 creatinine 1.65 with calcium level slightly below. Ammonia level was normal at 25 with troponin 0.015. Brain CAT scan shows no acute intracranial process with nonspecific white matter changes secondary to small vessel disease. C atelectasis versus pneumonia. EKG shows normal sinus rhythm with nonspecific finding. Patient was kept on BiPAP continue supportive care will consult pulmonary patient have higher possibly to end up on mechanical ventilation at this point. Hest x-ray showed mild left lower lobe infiltrate correlate with 01/09/2024: Patient remain in ER hold on BiPAP for respiratory distress and failure, continue to have significant confusion and worsening mental status, she still having A-fib with RVR with pulse rate running at 140 bpm despite 10 mg of Cardizem drip, patient be seen cardiology today and she looks like she need to be transferred to the ICU for further management she is remain no code and DO NOT RESUSCITATE at this point we will continue current management with the interaction to medication along possibility of overdose along with her severe CO PD exacerbation with severe hypercapnia and CO2 retention. Prognosis at this point specially with was going on with patient cardiopulmonary ramires is very not clear and there is a big possibility for high comorbidity and high mortality at this point. 01/10/2024: Still in mild respiratory failure, still on BiPAP through the night higher flow oxygen daytime with pulse ox little bit better. Still seen pulmonary and agree with the current plan and management. A-fib ramires patient remain on Toprol-XL 100 mg daily, Cardizem CD 180 mg daily still on amiodarone drip started back yesterday and continue anticoagulation. She is responding little bit better today physically but still quite bit co nfused and still not stable medically at this point. Echocardiogram still pending at this point. 12/12/2023: She is still not doing well still in mild distress is very weak in all 4 extremities, still complaining about soreness on the sacrum area which is stage I smaller area being cared for by the nurses and the aide but patient keep complaining about it all the time bother her more than her respiration and pulse rate. She is on 3 L O2 running at 93 percentile, her laboratory value today showing hemoglobin of 15.6 hematocrit 50.4, BUN/creatinine are normal blood sugar still running in the low 100, pulse rate still running in the high 100- 140. She is back on amiodarone drip today still on Cardizem as well. Her COPD exacerbation been well-managed and currently off BiPAP still on O2, her altered mental status still showing acute metabolic encephalopathy with hypercapnia and hypoxia causing the generalized profound weakness. Still having paroxysmal A-fib with pulse rate running over 114 remain on amiodarone drip and Cardizem drip. Patient still critically ill at this point comprehension is not 100 percentile and slightly better lethargic when she talk not able to express herself in full. 01/11. Patient seen and examined. Patient was switched from IV amiodarone to oral amiodarone. Denies any shortness of breath denies any chest pain. 01/12. Patient seen and examined. Blood work this morning showed WBC 10.4, hemoglobin 14.8, platelet count 209, sodium 134, potassium 4.3, BUN 17, creatinine 0.66, glucose 122,. Currently on 3 l of oxygen. Does not look any acute distress. REVIEW OF SYSTEMS: CONSTITUTIONAL: No fever, no malaise,. CARDIOVASCULAR: No chest pain, no palpitations, no syncope. PULMONARY: No shortness of breath, no cough, GASTROINTESTINAL: No diarrhea, no nausea, no vomiting, no abdominal pain. NEUROLOGICAL: No headaches, no weakness, PHYSICAL EXAMINATION: GENERAL: The patient is alert, chronically ill looking HEENT: Pupils are round and equally reacting to light. EOMI. No scleral icterus. No conjunctival pallor. Normocephalic, atraumatic. No pharyngeal erythema. No thyromegaly. CARDIOVASCULAR: S1 and S2 present. No murmurs, rubs, or gallops. PULMONARY: Chest is clear to auscultation, no wheezing or crackles. ABDOMEN: Soft, nontender, nondistended, normoactive bowel sounds. No palpable organomegaly. MUSCULOSKELETAL: No joint swelling or deformity. EXTREMITIES: No cyanosis, clubbing, or pedal edema. NEUROLOGICAL: Gross neurological examination did not reveal any focal deficits. SKIN: No rashes. Assessment and plan _Acute respiratory failure: _COPD exacerbation: _Severe hypercapnia with carbon dioxide retention: Monitor vital sign Monitor CBC Monitor CMP Continue BiPAP as needed Continue oxygen supplementation Continue breathing treatments Pulmonology following _A-fib with RVR: Continue telemetry monitoring Continue amiodarone and Xarelto Cardiology following _Possible medication side effect or interaction combination between her pain meds, gabapentin, and Depakote. Slightly better so far specially that patient has not been on any of her original medication yet. _Type 2 diabetes Monitor blood sugar levels, continue current insulin regimen _Adrenal insufficiency: Has been on Cortef and fludrocortisone continue medication still using midodrine for hypotension as well. _History of pulmonary embolism: Continue Xarelto _Chronic pain plan: Continue pain management _Parkinsonism: Has been on Sinemet as a medication. _ Decub ulcer: Stage I very small on the buttocks area, continue wound care _History of seizure: Has been on Keppra 1500 mg twice a day. _Hyperlipidemia: Continue Lipitor. _Worsening mental status and mild dementia has been on Aricept 10 mg a day. _Hypothyroidism: Has been on Tapazole 15 mg daily. Labs and medication were reviewed.. Continue same treatment. Continue with symptomatic treatment. Resume home medication. Monitor labs and vitals. DVT and GI prophylaxis. Further recommendations as per clinical course of the patient Dictation was produced using [employer] dictation software. please excuse any grammatical, word or spelling errors. Objective - Vital Signs Vital signs: Vital Signs Temp 97.8 F 01/13/24 07:55 Pulse 84 01/13/24 07:59 Resp 16 01/13/24 07:55 BP 96/60 01/13/24 07:55 Pulse Ox 95 01/13/24 07:55 FiO2 40 01/10/24 23:08 Intake & Output 01/12/24 01/13/24 01/13/24 18:59 06:59 18:59 Intake Total 77.417 Output Total 800 400 Balance -722.583 -400 Weight 113.398 kg Intake: Intake, IV Titration 77.417 Amount Diltiazem 125 mg In 77.417 Sodium Chloride 0.9% 100 ml @ 5 MG/HR 5 mls/hr IV .Q24H [facility] Rx#:[id number] Output: Urine 800 400 Other: Voiding Method Indwelling Catheter Indwelling Catheter Indwelling Catheter # Bowel Movements 0 - Labs CBC & Chem 7: 01/13/24 07:26 01/13/24 07:26 Labs: Abnormal Lab Results - Last 24 Hours (Table) 01/12/24 01/12/24 01/12/24 Range/Units 12:02 16:51 20:08 Hct (34.0-46.0) % MCHC (31.0-37.0) g/dL Sodium (137-145) mmol/L Chloride (98-107) mmol/L Carbon Dioxide (22-30) mmol/L Glucose (74-99) mg/dL POC Glucose (mg/dL) 142 H 221 H 153 H (70-110) mg/dL Alkaline Phosphatase (38-126) U/L Total Protein (6.3-8.2) g/dL Albumin (3.5-5.0) g/dL 01/13/24 01/13/24 01/13/24 Range/Units 06:08 07:26 07:26 Hct 48.9 H (34.0-46.0) % MCHC 30.3 L (31.0-37.0) g/dL Sodium 134 L (137-145) mmol/L Chloride 95 L (98-107) mmol/L Carbon Dioxide 32 H (22-30) mmol/L Glucose 122 H (74-99) mg/dL POC Glucose (mg/dL) 123 H (70-110) mg/dL Alkaline Phosphatase 22 L (38-126) U/L Total Protein 5.6 L (6.3-8.2) g/dL Albumin 3.2 L (3.5-5.0) g/dL 01/13/24 Range/Units 07:47 Hct (34.0-46.0) % MCHC (31.0-37.0) g/dL Sodium (137-145) mmol/L Chloride (98-107) mmol/L Carbon Dioxide (22-30) mmol/L Glucose (74-99) mg/dL POC Glucose (mg/dL) 121 H (70-110) mg/dL Alkaline Phosphatase (38-126) U/L Total Protein (6.3-8.2) g/dL Albumin (3.5-5.0) g/dL
--- NOTE | 2024-01-13 13:55 | P.PN ---
Subjective Progress Note Date: 01/13/24 Patient is a 78-year-old white female with past medical history significant for COPD, chronic hypoxemic respiratory failure, obstructive sleep apnea without CPAP atrial fibrillation and is anticoagulated on Xarelto, pulmonary embolism, adrenal insufficiency, prior splenectomy, type 2 diabetes mellitus, seizure disorder, among many other comorbidities. She is reportedly a alf resident and resides at [facility]. She was noted to be altered, more so than normal. It was reported that she took her oxygen off at the alf. On arrival to the emergency room, she was noted to be somnolent. A VBG indicated pCO2 of 78 and pH of 7.35. She is currently resting in bed, on BiPAP with settings 12/6 and FiO2 40%. She is achieving tidal volumes of 350-400 and respiratory rate is in the mid teens. She remains lethargic, but will briefly wake up and answer some questions. According to the nurse, this is an improvement from earlier. She is only oriented to self. I did order a follow- up ABG with current BiPAP settings which shows pO2 of 92, pCO2 of 54, pH of 7.44. Note, that she also has chronic back pain, and takes [place] on outpatient basis. She did receive some Narcan while in the emergency room, reportedly without significant response. She does take Aricept on an outpatient basis, and I am uncertain of her baseline mentation. Noncontrast CT of the brain did not show any acute intracranial process. Chest x-ray done on arrival shows a possible retrocardiac infiltrate versus atelectasis. She has remained afebrile. CBC unremarkable, no leukocytosis. CMP also unremarkable. LFTs not significantly elevated. Ammonia 25. Lactic acid 1.7. Urinalysis not concerning for UTI. Urine tox screen positive for opiates and benzodiazepines. EKG shows normal sinus rhythm without any obvious acute ischemic changes. Troponin 0.015. Current vital signs stable. On today's evaluation of 01/10/2024, the patient is being seen for a follow-up. She is sluggishly responsive. She is able to communicate. She remains in atrial fibrillation. The patient was treated with amiodarone and currently she is on metoprolol at a dose of 150 mg p.o. daily and Cardizem CD to 40 mg p.o. daily. She was taken off the BiPAP this morning and the patient is currently on 3 L of oxygen by nasal cannula. Less tachycardic compared to yesterday. No recent blood work from today. Procalcitonin level was low. TSH is at 3.6. The patient is currently off the amiodarone drip and off the Cardizem drip. Blood pressure is stable for now. He is on chronically on anticoagulation with Xarelto. She is on Levemir insulin 20 units daily and she is also on Cortef 20 mg p.o. twice daily suspecting underlying adrenal insufficiency. On today's evaluation of 01/11/2024, patient is being seen for a follow-up. Patient is very much lethargic and arousable. He has profound weakness in all 4 extremities. Essentially bedridden. Elevated to cough and reach out and grab things with her hands is extremely weak and the patient seems to be quite debilitated at this point in time. Nevertheless, she is arousable and she communicates. No respiratory distress and the patient remains on oxygen at 3 L nasal cannula with a pulse ox of 93%. The white cell count is 11 with a hemoglobin of 15.6 and a platelet count of 221. BUN is 19 with a creatinine of 0.7 and serum bicarb is at 32 with a sodium level of 134 and a potassium level is at 4.0. Cardiology is on the case regarding their history of atrial fibrillation. The patient was maintained on amiodarone drip and this was discontinued. The patient was started on Cardizem drip at 5 mg an hour by cardiology as the patient was still tachycardic with a heart rate of 160. Based on all this, the patient was kept on amiodarone drip and Cardizem is running at 5 mg an hour. Oral Cardizem is on hold and metoprolol dose was adjusted and the patient is currently on a dose of 150 mg p.o. twice a day. Echocardiogram was also ordered by cardiology. 01/12/2024, the patient is being seen for a follow-up. Patient is very lethargic, somnolent and undergoes limited communication. She is arousable. She is essentially bedridden. Motor functions are quite weak in all 4 extremities and the patient says only few words upon stimulation. She denies having any chest pain. She denies having any shortness of breath. She remains on oxygen 3 L/min nasal cannula. No new labs from today. She remains in atrial fibrillation at the rate is under better control for now. She is on a combination of medications and drips have been essentially discontinued including amiodarone and Cardizem drip and the patient is currently on metoprolol at a dose of 150 mg p.o. daily and Cardizem 60 mg p.o. 3 times daily. She remains on amiodarone 5 mg p.o. twice daily. She is on Xarelto. She is on Cortef for suspected adrenal insufficiency. She is on Lasix 10 mg p.o. daily. 01/13/2024, the patient is resting comfortably in bed. Does not communicate a whole lot. Cardiac rhythm remains atrial fibrillation at the rate is controlled. The patient remains on treatment of oxygen by nasal cannula. The patient remains on amiodarone 4 mg p.o. twice a day and metoprolol 100 cm p.o. daily and Cardizem 60 mg p.o. 3 times daily. Rest of the medication remains unchanged. The patient remains anticoagulation with Xarelto. White cell count of 10.4 with a hemoglobin 14.8 and a platelet count of 209. Sodium is at 134, BUN is at 17 with a creatinine of 0.6. Potassium level is at 4.3. The patient denies having any specific complaints. No signs of any respiratory distress. On 3 L, the pulse ox is only 94%. Objective - Vital Signs Vital signs: Vital Signs Temp 97.8 F 01/13/24 07:55 Pulse 84 01/13/24 07:59 Resp 16 01/13/24 07:55 BP 96/60 01/13/24 07:55 Pulse Ox 95 01/13/24 07:55 FiO2 40 01/10/24 23:08 Intake & Output 01/12/24 01/13/24 01/13/24 18:59 06:59 18:59 Intake Total 77.417 Output Total 800 400 Balance -722.583 -400 Intake: Intake, IV Titration 77.417 Amount Diltiazem 125 mg In 77.417 Sodium Chloride 0.9% 100 ml @ 5 MG/HR 5 mls/hr IV .Q24H [facility] Rx#:[id number] Output: Urine 800 400 Other: Voiding Method Indwelling Catheter Indwelling Catheter Indwelling Catheter # Bowel Movements 0 - Exam GENERAL EXAM: Lethargic,, communicating, more alert compared to yesterday currently on 3 L of oxygen by nasal cannula HEAD: Normocephalic and atraumatic EYES: Normal reaction of pupils, equal size. NOSE: Clear with pink turbinates. THROAT: No erythema or exudates. NECK: No masses, no JVD. CHEST: No chest wall deformity. LUNGS: Equal air entry with markedly diminished lung sounds bilaterally. CVS: Irregular S1 and S2 normal with no audible murmur, regular rhythm. No extra heart sounds and irregular rhythm consistent with atrial fibrillation. ABDOMEN: Obese abdomen, no hepatosplenomegaly, active bowel sounds, no guarding or rigidity. SPINE: No scoliosis or deformity SKIN: No rashes CENTRAL NERVOUS SYSTEM: No focal deficits, tone is normal in all 4 extremities. EXTREMITIES: There is no peripheral edema, clubbing, or cyanosis. Peripheral pulses are intact. - Labs CBC & Chem 7: 01/13/24 07:26 01/13/24 07:26 Labs: Abnormal Lab Results - Last 24 Hours (Table) 01/12/24 01/12/24 01/12/24 Range/Units 12:02 16:51 20:08 Hct (34.0-46.0) % MCHC (31.0-37.0) g/dL Sodium (137-145) mmol/L Chloride (98-107) mmol/L Carbon Dioxide (22-30) mmol/L Glucose (74-99) mg/dL POC Glucose (mg/dL) 142 H 221 H 153 H (70-110) mg/dL Alkaline Phosphatase (38-126) U/L Total Protein (6.3-8.2) g/dL Albumin (3.5-5.0) g/dL 01/13/24 01/13/24 01/13/24 Range/Units 06:08 07:26 07:26 Hct 48.9 H (34.0-46.0) % MCHC 30.3 L (31.0-37.0) g/dL Sodium 134 L (137-145) mmol/L Chloride 95 L (98-107) mmol/L Carbon Dioxide 32 H (22-30) mmol/L Glucose 122 H (74-99) mg/dL POC Glucose (mg/dL) 123 H (70-110) mg/dL Alkaline Phosphatase 22 L (38-126) U/L Total Protein 5.6 L (6.3-8.2) g/dL Albumin 3.2 L (3.5-5.0) g/dL 01/13/24 Range/Units 07:47 Hct (34.0-46.0) % MCHC (31.0-37.0) g/dL Sodium (137-145) mmol/L Chloride (98-107) mmol/L Carbon Dioxide (22-30) mmol/L Glucose (74-99) mg/dL POC Glucose (mg/dL) 121 H (70-110) mg/dL Alkaline Phosphatase (38-126) U/L Total Protein (6.3-8.2) g/dL Albumin (3.5-5.0) g/dL Assessment and Plan Assessment: acute COPD exacerbation, chest x-ray unremarkable other than a mild retrocardiac opacity, suspect atelectasis. The patient had a component of hypercapnic respiratory failure acute on chronic and the patient is currently on 3 L of oxygen by nasal cannula and the patient was taken off the BiPAP Acute on chronic hypoxemic respiratory failure, currently off BiPAP and on 3 L of oxygen by nasal cannula Altered mental status, suspect component of acute metabolic encephalopathy and hypercapnia, improving and the patient is much more alert and awake on today's evaluation Nevertheless, she has profound debilitated and weak and there is generalized motor weakness in all 4 extremities. History of paroxysmal atrial fibrillation/flutter, chronically anticoagulated on Xarelto, the patient is currently on amiodarone, metoprolol and Cardizem and cardiology on the case. Sick sinus syndrome the patient has a pacemaker in place History of pulmonary embolism, maintained on anticoagulation with Xarelto History of diabetes mellitus History of adrenal insufficiency, currently on oral hydrocortisone History of hyperthyroidism, on methimazole History of hyperlipidemia History of seizure disorder History of obstructive sleep apnea, without CPAP Chronic pain, maintained on [place]'s outpatient, patient was given a dose of Narcan in the emergency room reportedly without significant response. Frequent falls Morbid obesity, with a BMI of 40.4 kg/m History of anxiety Plan: No change in her condition Respiratory status stable at 3 L of O2 nasal cannula Management of A-fib per cardiology Metoprolol 150 mg p.o. daily Cardizem 60 mg p.o. 3 times daily Oral amiodarone 4 mg p.o. twice a day Monitor respiratory status Currently on 3 L of O2 nasal cannula Continue [facility] [place] Continue monitoring the mental status and watch for any signs of hypercapnic respiratory failure and CO2 narcosis Procalcitonin level has been low Patient is anticoagulated with Xarelto Continue p.o. hydrocortisone [employer] on the case Very much lethargic, quite debilitated. Resting comfortably in bed. Excessive motor weakness in all 4 extremities. Bedridden. DNR/DNI CODE STATUS. Will continue to follow.
--- NOTE | 2024-01-13 15:33 | P.PN ---
Subjective Progress Note Date: 01/13/24 Consult reason: atrial flutter, congestive heart failure History of present illness: This is a 78-year-old female patient of Dr. Leong with past medical history of paroxysmal atrial fibrillation on Xarelto, permanent pacemaker, hypertension, dyslipidemia, valvular heart disease, adrenal insufficiency, chronic obstructive pulmonary disease, chronic hypoxic respiratory failure on home O2, history of pulmonary embolism, history of bladder cancer s/p surgery, diabetes mellitus type 2. We have been asked to evaluate the patient for new onset of atrial fl utter and CHF. Patient resides at [facility] and due to altered mental status was brought into the emergency center for further evaluation. Patient is currently on BiPAP and has been seen by pulmonary medicine. Patient is unable to provide any reliable information. Patient has been started on Cardizem drip and resumed on Xarelto as well as beta-william. Heart rate is running up to the 140s. EKG #1 sinus rhythm 80 bpm mild nonspecific T wave changes, #2 atrial flutter/fibrillation, #3 atrial flutter 148 bpm Chest x-ray: Mid left lower lobe infiltrate. Correlate for atelectasis or pneumonia. CT brain no acute intracranial process. WBC 10.7, hemoglobin 15.4. Sodium 143, potassium 4.3, 6 CO2 34, BUN 32 creatinine 0.84. TSH 3.64. Troponin negative x 1. Ammonia level 25. Home cardiac medications: Cardizem CD 180 mg daily, Lasix 10 mg daily, losartan 12.5 mg daily, metoprolol succinate 100 mg daily, Xarelto 20 mg daily, Crestor 20 mg Sunday. Cardiac catheterization in 01/2020 revealed normal coronary arteries Echocardiogram performed in the office on 09/26/2022 revealed EF of 55 to 60%. Moderate concentric left ventricular hypertrophy. Trace aortic regurgitation. Mild mitral regurgitation. Mild tricuspid regurgitation. PASP 33 mmHg. 01/09 Patient is seen today on the cardiac stepdown unit. Her mental status is improved and patient is able to answer questions today. Telemetry is atrial fibrillation around 130 ventricular rate. She has been on Toprol XL 100 mg daily and Cardizem CD1 180 mg daily. Patient was started on amiodarone drip yesterday. For some reason Cardizem drip was discontinued. Blood pressure 109/58. 01/10 Patient is seen today in follow-up. Yesterday, patient was maintained on amiodarone drip but sometime during the night this was discontinued. Cardiology was called during the night and patient was started on Cardizem drip currently at 5 mg/h. Patient continues to have elevated heart rates at 160 bpm. Patient will be resumed back on amnio and Cardizem oral discontinued. So at this time, patient will be continued on Cardizem drip and amiodarone drip. Patient is less responsive this morning. Blood pressure 104/60, pulse ox 95% on 3 L nasal cannula. Repeat blood work reveals hemoglobin 15.6, WBC 11. Sodium 134, potassium 4, CO2 32, BUN 19 creatinine 0.74. Echocardiogram is pending. 01/11 We have had ongoing difficulty controlling patient's heart rate. Yesterday she was on both Cardizem drip and amiodarone drip and she was maintained on metoprolol succinate 150 mg daily. This morning, patient remains in atrial fibrillation but rate is controlled in the 90s. Blood pressure 107/61. Patient was less responsive yesterday. Echocardiogram has been obtained and report is pending. 01/12 Yesterday, amiodarone drip and Cardizem drip were discontinued and patient started on oral Cardizem and oral amiodarone. Her metoprolol succinate had also been increased previous to that. Heart rate is running in the 70s and 80s, blood pressure 96/60, pulse ox 95% on 3 l nasal cannula. Hemoglobin 14.8. Potassium 4.2, BUN 17 creatinine 0.66. Telemetry is atrial fibrillation with rate controlled. Echocardiogram reveals EF of 45 to 50%, no mitral regurgitation. Trace pulmonic regurgitation. No pericardial effusion. Physical examination: Gen: This is a morbidly obese 78-year-old female in no acute distress VS: reviewed HEENT: Head is atraumatic, normocephalic. Pupils equal, round. Sclerae is anicteric. NECK: Supple. No JVD. LUNGS: Clear to auscultation. No wheezes or rhonchi. No intercostal retractio ns. HEART: Irregular rate and rhythm. No murmur. ABDOMEN: Soft No tenderness. EXTREMITIES: No pedal edema. No calf tenderness. Assessment: Typical atrial flutter with poorly controlled rate Paroxysmal atrial fibrillation status post RVR, currently rate controlled Acute on chronic hypoxic respiratory failure secondary to COPD exacerbation, possible pneumonia Sick sinus syndrome status post permanent pacemaker Hypertension Dyslipidemia Valvular heart disease COPD History of pulmonary embolus Remote history of tobacco use Plan: Continue current cardiac medications: Atorvastatin, oral Lasix, losartan, Xarelto Continue oral Cardizem 60 mg 3 times daily and amiodarone 400 mg twice daily Continue increased dose of metoprolol succinate 150 mg daily Parameters on losartan to hold if systolic blood pressure less than 110 Continue telemetry monitoring Further recommendations to follow based upon clinical course Nurse practitioner note has been reviewed, I agree with documented findings and plan of care. Patient was seen and examined. Objective - Vital Signs Vital signs: Vital Signs Temp 97.8 F 01/13/24 07:55 Pulse 84 01/13/24 07:59 Resp 16 01/13/24 07:55 BP 96/60 01/13/24 07:55 Pulse Ox 95 01/13/24 07:55 FiO2 40 01/10/24 23:08 Intake & Output 01/12/24 01/13/24 01/13/24 18:59 06:59 18:59 Intake Total 77.417 Output Total 800 400 Balance -722.583 -400 Intake: Intake, IV Titration 77.417 Amount Diltiazem 125 mg In 77.417 Sodium Chloride 0.9% 100 ml @ 5 MG/HR 5 mls/hr IV .Q24H [facility] Rx#:[id number] Output: Urine 800 400 Other: Voiding Method Indwelling Catheter Indwelling Catheter Indwelling Catheter # Bowel Movements 0 - Labs CBC & Chem 7: 01/13/24 07:26 01/13/24 07:26 Labs: Abnormal Lab Results - Last 24 Hours (Table) 01/12/24 01/12/24 01/12/24 Range/Units 12:02 16:51 20:08 Hct (34.0-46.0) % MCHC (31.0-37.0) g/dL Sodium (137-145) mmol/L Chloride (98-107) mmol/L Carbon Dioxide (22-30) mmol/L Glucose (74-99) mg/dL POC Glucose (mg/dL) 142 H 221 H 153 H (70-110) mg/dL Alkaline Phosphatase (38-126) U/L Total Protein (6.3-8.2) g/dL Albumin (3.5-5.0) g/dL 01/13/24 01/13/24 01/13/24 Range/Units 06:08 07:26 07:26 Hct 48.9 H (34.0-46.0) % MCHC 30.3 L (31.0-37.0) g/dL Sodium 134 L (137-145) mmol/L Chloride 95 L (98-107) mmol/L Carbon Dioxide 32 H (22-30) mmol/L Glucose 122 H (74-99) mg/dL POC Glucose (mg/dL) 123 H (70-110) mg/dL Alkaline Phosphatase 22 L (38-126) U/L Total Protein 5.6 L (6.3-8.2) g/dL Albumin 3.2 L (3.5-5.0) g/dL 01/13/24 Range/Units 07:47 Hct (34.0-46.0) % MCHC (31.0-37.0) g/dL Sodium (137-145) mmol/L Chloride (98-107) mmol/L Carbon Dioxide (22-30) mmol/L Glucose (74-99) mg/dL POC Glucose (mg/dL) 121 H (70-110) mg/dL Alkaline Phosphatase (38-126) U/L Total Protein (6.3-8.2) g/dL Albumin (3.5-5.0) g/dL
[2024-01-13 16:40] LABS: Glucose,Whole Blood 147 mg/dL (70-110)
[2024-01-13] MEDS: SODIUM CHLORIDE 0.9% 1,000 ML IV SCH (18:27)
[2024-01-13 20:35] LABS: Glucose,Whole Blood 141 mg/dL (70-110)
[2024-01-13] MEDS: ZINC OXIDE PASTE (Z-GUARD) 1 APPLIC TOPICAL PRN (21:09)
[2024-01-14 06:02] LABS: Glucose,Whole Blood 135 mg/dL (70-110)
[2024-01-14 09:00] LABS: Glucose,Whole Blood 130 mg/dL (70-110)
[2024-01-14 11:38] LABS: Glucose,Whole Blood 134 mg/dL (70-110)
--- NOTE | 2024-01-14 12:47 | P.PN ---
Subjective Progress Note Date: 01/14/24 Consult reason: atrial flutter, congestive heart failure History of present illness: This is a 78-year-old female patient of Dr. Leong with past medical history of paroxysmal atrial fibrillation on Xarelto, permanent pacemaker, hypertension, dyslipidemia, valvular heart disease, adrenal insufficiency, chronic obstructive pulmonary disease, chronic hypoxic respiratory failure on home O2, history of pulmonary embolism, history of bladder cancer s/p surgery, diabetes mellitus type 2. We have been asked to evaluate the patient for new onset of atrial fl utter and CHF. Patient resides at [facility] and due to altered mental status was brought into the emergency center for further evaluation. Patient is currently on BiPAP and has been seen by pulmonary medicine. Patient is unable to provide any reliable information. Patient has been started on Cardizem drip and resumed on Xarelto as well as beta-william. Heart rate is running up to the 140s. EKG #1 sinus rhythm 80 bpm mild nonspecific T wave changes, #2 atrial flutter/fibrillation, #3 atrial flutter 148 bpm Chest x-ray: Mid left lower lobe infiltrate. Correlate for atelectasis or pneumonia. CT brain no acute intracranial process. WBC 10.7, hemoglobin 15.4. Sodium 143, potassium 4.3, 6 CO2 34, BUN 32 creatinine 0.84. TSH 3.64. Troponin negative x 1. Ammonia level 25. Home cardiac medications: Cardizem CD 180 mg daily, Lasix 10 mg daily, losartan 12.5 mg daily, metoprolol succinate 100 mg daily, Xarelto 20 mg daily, Crestor 20 mg Sunday. Cardiac catheterization in 01/2020 revealed normal coronary arteries Echocardiogram performed in the office on 09/26/2022 revealed EF of 55 to 60%. Moderate concentric left ventricular hypertrophy. Trace aortic regurgitation. Mild mitral regurgitation. Mild tricuspid regurgitation. PASP 33 mmHg. 01/09 Patient is seen today on the cardiac stepdown unit. Her mental status is improved and patient is able to answer questions today. Telemetry is atrial fibrillation around 130 ventricular rate. She has been on Toprol XL 100 mg daily and Cardizem CD1 180 mg daily. Patient was started on amiodarone drip yesterday. For some reason Cardizem drip was discontinued. Blood pressure 109/58. 01/10 Patient is seen today in follow-up. Yesterday, patient was maintained on amiodarone drip but sometime during the night this was discontinued. Cardiology was called during the night and patient was started on Cardizem drip currently at 5 mg/h. Patient continues to have elevated heart rates at 160 bpm. Patient will be resumed back on amnio and Cardizem oral discontinued. So at this time, patient will be continued on Cardizem drip and amiodarone drip. Patient is less responsive this morning. Blood pressure 104/60, pulse ox 95% on 3 L nasal cannula. Repeat blood work reveals hemoglobin 15.6, WBC 11. Sodium 134, potassium 4, CO2 32, BUN 19 creatinine 0.74. Echocardiogram is pending. 01/11 We have had ongoing difficulty controlling patient's heart rate. Yesterday she was on both Cardizem drip and amiodarone drip and she was maintained on metoprolol succinate 150 mg daily. This morning, patient remains in atrial fibrillation but rate is controlled in the 90s. Blood pressure 107/61. Patient was less responsive yesterday. Echocardiogram has been obtained and report is pending. 01/12 Yesterday, amiodarone drip and Cardizem drip were discontinued and patient started on oral Cardizem and oral amiodarone. Her metoprolol succinate had also been increased previous to that. Heart rate is running in the 70s and 80s, blood pressure 96/60, pulse ox 95% on 3 l nasal cannula. Hemoglobin 14.8. Potassium 4.2, BUN 17 creatinine 0.66. Telemetry is atrial fibrillation with rate controlled. Echocardiogram reveals EF of 45 to 50%, no mitral regurgitation. Trace pulmonic regurgitation. No pericardial effusion. 01/13 Patient's blood pressures remain soft despite midodrine, parameters placed on losartan to hold for systolic blood pressure less than 110. Blood pressure this morning 107/62, heart rate is running in the 80s, pulse ox 96% on 3 L nasal cannula. Telemetry is atrial fibrillation. Physical examination: Gen: This is a morbidly obese 78-year-old female in no acute distress VS: reviewed HEENT: Head is atraumatic, normocephalic. Pupils equal, round. Sclerae is anicteric. NECK: Supple. No JVD. LUNGS: Clear to auscultation. No wheezes or rhonchi. No intercostal retractions. HEART: Irregular rate and rhythm. No murmur. ABDOMEN: Soft No tenderness. EXTREMITIES: No pedal edema. No calf tenderness. Assessment: Typical atrial flutter with poorly controlled rate, now in atrial fibrillation Paroxysmal atrial fibrillation status post RVR, currently rate controlled Acute on chronic hypoxic respiratory failure secondary to COPD exacerbation, possible pneumonia Sick sinus syndrome status post permanent pacemaker Hypertension Dyslipidemia Valvular heart disease, mild mitral regurgitation, mild tricuspid regurgitation COPD Obstructive sleep apnea without CPAP Adrenal insufficiency on oral hydrocortisone History of pulmonary embolus Remote history of tobacco use Plan: Continue current cardiac medications: Atorvastatin, oral Lasix, losartan, Xarelto Continue oral Cardizem 60 mg 3 times daily and amiodarone 400 mg twice daily for 7 days, followed by 200 mg twice daily for 7 days, then 200 mg daily Continue increased dose of metoprolol succinate 150 mg daily Parameters on losartan to hold if systolic blood pressure less than 110 Cardiology will sign off this case and follow on an as-needed basis. Please reconsult for any new concerns. Patient may follow-up in the office in one to [address] Leong. Nurse practitioner note has been reviewed, I agree with documented findings and plan of care. Patient was seen and examined. Objective - Vital Signs Vital signs: Vital Signs Temp 97.8 F 01/14/24 03:53 Pulse 88 01/14/24 08:13 Resp 16 01/14/24 03:53 BP 107/62 01/14/24 03:53 Pulse Ox 96 01/14/24 07:54 FiO2 40 01/10/24 23:08 Intake & Output 01/13/24 01/14/24 01/14/24 18:59 06:59 18:59 Intake Total 480 Output Total 150 200 Balance 330 -200 Weight 113.398 kg Intake: Oral 480 Output: Urine 150 200 Other: Voiding Method Indwelling Catheter Indwelling Catheter - Labs CBC & Chem 7: 01/13/24 07:26 01/13/24 07:26 Labs: Abnormal Lab Results - Last 24 Hours (Table) 01/13/24 01/13/24 01/13/24 Range/Units 12:00 16:39 20:33 POC Glucose (mg/dL) 134 H 147 H 141 H (70-110) mg/dL 01/14/24 01/14/24 Range/Units 06:00 08:57 POC Glucose (mg/dL) 135 H 130 H (70-110) mg/dL
--- NOTE | 2024-01-14 13:52 | P.PN ---
Subjective Progress Note Date: 01/14/24 78-year-old morbidly obese problem [facility] home who was sent to the emergency department [facility] because of altered mental status was known to have multiple medical problem found to be completely confused not responding well she was quite hypoxic she is on chronic respiratory failure on 4 L of oxygen on more regular basis. EMS were called to the scene seen patient who continued to be quite bit confused and significant altered mental status in the having half dose of Narcan she still did not respond well. Continue to be quite hypoxic and putting her on BiPAP and then do bring her to the emergency department at [facility] where was seen and evaluated. She has multiple medical probl em on multiple medication and oxygen she was diagnosed with acute respiratory failure with severe carbon dioxide retention as hypercapnia with suppression related probably to medication and medication interaction with side effect. Also possibility of infection as there possibility of overdose versus seizure activity. Her laboratory value showed with her ABG pCO2 of 78 with HCO3 of 42 pH of 7.35, hemoglobin 14.9 with hematocrit 50.2 with normal white blood cell. Blood sugars mildly elevated with lactic acid 1.7 UA was slightly Positive chemistry with carbon dioxide of 33 BUN of 30 creatinine 1.65 with calcium level slightly below. Ammonia level was normal at 25 with troponin 0.015. Brain CAT scan shows no acute intracranial process with nonspecific white matter changes secondary to small vessel disease. C atelectasis versus pneumonia. EKG shows normal sinus rhythm with nonspecific finding. Patient was kept on BiPAP continue supportive care will consult pulmonary patient have higher possibly to end up on mechanical ventilation at this point. Hest x-ray showed mild left lower lobe infiltrate correlate with 01/09/2024: Patient remain in ER hold on BiPAP for respiratory distress and failure, continue to have significant confusion and worsening mental status, she still having A-fib with RVR with pulse rate running at 140 bpm despite 10 mg of Cardizem drip, patient be seen cardiology today and she looks like she need to be transferred to the ICU for further management she is remain no code and DO NOT RESUSCITATE at this point we will continue current management with the interaction to medication along possibility of overdose along with her severe CO PD exacerbation with severe hypercapnia and CO2 retention. Prognosis at this point specially with was going on with patient cardiopulmonary ramires is very not clear and there is a big possibility for high comorbidity and high mortality at this point. 01/10/2024: Still in mild respiratory failure, still on BiPAP through the night higher flow oxygen daytime with pulse ox little bit better. Still seen pulmonary and agree with the current plan and management. A-fib ramires patient remain on Toprol-XL 100 mg daily, Cardizem CD 180 mg daily still on amiodarone drip started back yesterday and continue anticoagulation. She is responding little bit better today physically but still quite bit co nfused and still not stable medically at this point. Echocardiogram still pending at this point. 12/12/2023: She is still not doing well still in mild distress is very weak in all 4 extremities, still complaining about soreness on the sacrum area which is stage I smaller area being cared for by the nurses and the aide but patient keep complaining about it all the time bother her more than her respiration and pulse rate. She is on 3 L O2 running at 93 percentile, her laboratory value today showing hemoglobin of 15.6 hematocrit 50.4, BUN/creatinine are normal blood sugar still running in the low 100, pulse rate still running in the high 100- 140. She is back on amiodarone drip today still on Cardizem as well. Her COPD exacerbation been well-managed and currently off BiPAP still on O2, her altered mental status still showing acute metabolic encephalopathy with hypercapnia and hypoxia causing the generalized profound weakness. Still having paroxysmal A-fib with pulse rate running over 114 remain on amiodarone drip and Cardizem drip. Patient still critically ill at this point comprehension is not 100 percentile and slightly better lethargic when she talk not able to express herself in full. 01/11. Patient seen and examined. Patient was switched from IV amiodarone to oral amiodarone. Denies any shortness of breath denies any chest pain. 01/12. Patient seen and examined. Blood work this morning showed WBC 10.4, hemoglobin 14.8, platelet count 209, sodium 134, potassium 4.3, BUN 17, creatinine 0.66, glucose 122,. Currently on 3 l of oxygen. Does not look any acute distress. 01/13. Patient seen and examined patient is alert. Currently on 2 L of oxygen REVIEW OF SYSTEMS: CONSTITUTIONAL: No fever, no malaise,. CARDIOVASCULAR: No chest pain, no palpitations, no syncope. PULMONARY: No shortness of breath, no cough, GASTROINTESTINAL: No diarrhea, no nausea, no vomiting, no abdominal pain. NEUROLOGICAL: No headaches, no weakness, PHYSICAL EXAMINATION: GENERAL: The patient is alert, chronically ill looking HEENT: Pupils are round and equally reacting to light. EOMI. No scleral icterus. No conjunctival pallor. Normocephalic, atraumatic. No pharyngeal erythema. No thyromegaly. CARDIOVASCULAR: S1 and S2 present. No murmurs, rubs, or gallops. PULMONARY: Chest is clear to auscultation, no wheezing or crackles. ABDOMEN: Soft, nontender, nondistended, normoactive bowel sounds. No palpable organomegaly. MUSCULOSKELETAL: No joint swelling or deformity. EXTREMITIES: No cyanosis, clubbing, or pedal edema. NEUROLOGICAL: Gross neurological examination did not reveal any focal deficits. SKIN: No rashes. Assessment and plan _Acute respiratory failure: _COPD exacerbation: _Severe hypercapnia with carbon dioxide retention: Monitor vital sign Monitor CBC Monitor CMP Continue BiPAP as needed Continue oxygen supplementation Continue breathing treatments Pulmonology following _A-fib with RVR: Continue telemetry monitoring Continue amiodarone and Xarelto Cardiology following _Possible medication side effect or interaction combination between her pain meds, gabapentin, and Depakote. Slightly better so far specially that patient has not been on any of her original medication yet. _Type 2 diabetes Monitor blood sugar levels, continue current insulin regimen _Adrenal insufficiency: Has been on Cortef and fludrocortisone continue m edication still using midodrine for hypotension as well. _History of pulmonary embolism: Continue Xarelto _Chronic pain plan: Continue pain management _Parkinsonism: Has been on Sinemet as a medication. _ Decub ulcer: Stage I very small on the buttocks area, continue wound care _History of seizure: Has been on Keppra 1500 mg twice a day. _Hyperlipidemia: Continue Lipitor. _Worsening mental status and mild dementia has been on Aricept 10 mg a day. _Hypothyroidism: Has been on Tapazole 15 mg daily. Labs and medication were reviewed.. Continue same treatment. Continue with symptomatic treatment. Resume home medication. Monitor labs and vitals. DVT and GI prophylaxis. Further recommendations as per clinical course of the patient Dictation was produced using [employer] dictation software. please excuse any grammatical, word or spelling errors. Objective - Vital Signs Vital signs: Vital Signs Temp 97.5 F L 01/14/24 08:55 Pulse 72 01/14/24 11:17 Resp 17 01/14/24 08:55 BP 106/66 01/14/24 08:55 Pulse Ox 97 01/14/24 08:55 FiO2 40 01/10/24 23:08 Intake & Output 01/13/24 01/14/24 01/14/24 18:59 06:59 18:59 Intake Total 480 Output Total 150 200 Balance 330 -200 Weight 113.398 kg Intake: Oral 480 Output: Urine 150 200 Other: Voiding Method Indwelling Catheter Indwelling Catheter Indwelling Catheter - Labs CBC & Chem 7: 01/13/24 07:26 01/13/24 07:26 Labs: Abnormal Lab Results - Last 24 Hours (Table) 01/13/24 01/13/24 01/13/24 Range/Units 12:00 16:39 20:33 POC Glucose (mg/dL) 134 H 147 H 141 H (70-110) mg/dL 01/14/24 01/14/24 Range/Units 06:00 08:57 POC Glucose (mg/dL) 135 H 130 H (70-110) mg/dL
--- NOTE | 2024-01-14 14:14 | P.PN ---
Subjective Progress Note Date: 01/14/24 Patient is a 78-year-old white female with past medical history significant for COPD, chronic hypoxemic respiratory failure, obstructive sleep apnea without CPAP atrial fibrillation and is anticoagulated on Xarelto, pulmonary embolism, adrenal insufficiency, prior splenectomy, type 2 diabetes mellitus, seizure disorder, among many other comorbidities. She is reportedly a group home resident and resides at [facility]. She was noted to be altered, more so than normal. It was reported that she took her oxygen off at the group home. On arrival to the emergency room, she was noted to be somnolent. A VBG indicated pCO2 of 78 and pH of 7.35. She is currently resting in bed, on BiPAP with settings 12/6 and FiO2 40%. She is achieving tidal volumes of 350-400 and respiratory rate is in the mid teens. She remains lethargic, but will briefly wake up and answer some questions. According to the nurse, this is an improvement from earlier. She is only oriented to self. I did order a follow- up ABG with current BiPAP settings which shows pO2 of 92, pCO2 of 54, pH of 7.44. Note, that she also has chronic back pain, and takes [place] on outpatient basis. She did receive some Narcan while in the emergency room, reportedly without significant response. She does take Aricept on an outpatient basis, and I am uncertain of her baseline mentation. Noncontrast CT of the brain did not show any acute intracranial process. Chest x-ray done on arrival shows a possible retrocardiac infiltrate versus atelectasis. She has remained afebrile. CBC unremarkable, no leukocytosis. CMP also unremarkable. LFTs not significantly elevated. Ammonia 25. Lactic acid 1.7. Urinalysis not concerning for UTI. Urine tox screen positive for opiates and benzodiazepines. EKG shows normal sinus rhythm without any obvious acute ischemic changes. Troponin 0.015. Current vital signs stable. On today's evaluation of 01/10/2024, the patient is being seen for a follow-up. She is sluggishly responsive. She is able to communicate. She remains in atrial fibrillation. The patient was treated with amiodarone and currently she is on metoprolol at a dose of 150 mg p.o. daily and Cardizem CD to 40 mg p.o. daily. She was taken off the BiPAP this morning and the patient is currently on 3 L of oxygen by nasal cannula. Less tachycardic compared to yesterday. No recent blood work from today. Procalcitonin level was low. TSH is at 3.6. The patient is currently off the amiodarone drip and off the Cardizem drip. Blood pressure is stable for now. He is on chronically on anticoagulation with Xarelto. She is on Levemir insulin 20 units daily and she is also on Cortef 20 mg p.o. twice daily suspecting underlying adrenal insufficiency. On today's evaluation of 01/11/2024, patient is being seen for a follow-up. Patient is very much lethargic and arousable. He has profound weakness in all 4 extremities. Essentially bedridden. Elevated to cough and reach out and grab things with her hands is extremely weak and the patient seems to be quite debilitated at this point in time. Nevertheless, she is arousable and she communicates. No respiratory distress and the patient remains on oxygen at 3 L nasal cannula with a pulse ox of 93%. The white cell count is 11 with a hemoglobin of 15.6 and a platelet count of 221. BUN is 19 with a creatinine of 0.7 and serum bicarb is at 32 with a sodium level of 134 and a potassium level is at 4.0. Cardiology is on the case regarding their history of atrial fibrillation. The patient was maintained on amiodarone drip and this was discontinued. The patient was started on Cardizem drip at 5 mg an hour by cardiology as the patient was still tachycardic with a heart rate of 160. Based on all this, the patient was kept on amiodarone drip and Cardizem is running at 5 mg an hour. Oral Cardizem is on hold and metoprolol dose was adjusted and the patient is currently on a dose of 150 mg p.o. twice a day. Echocardiogram was also ordered by cardiology. 01/12/2024, the patient is being seen for a follow-up. Patient is very lethargic, somnolent and undergoes limited communication. She is arousable. She is essentially bedridden. Motor functions are quite weak in all 4 extremities and the patient says only few words upon stimulation. She denies having any chest pain. She denies having any shortness of breath. She remains on oxygen 3 L/min nasal cannula. No new labs from today. She remains in atrial fibrillation at the rate is under better control for now. She is on a combination of medications and drips have been essentially discontinued including amiodarone and Cardizem drip and the patient is currently on metoprolol at a dose of 150 mg p.o. daily and Cardizem 60 mg p.o. 3 times daily. She remains on amiodarone 5 mg p.o. twice daily. She is on Xarelto. She is on Cortef for suspected adrenal insufficiency. She is on Lasix 10 mg p.o. daily. 01/13/2024, the patient is resting comfortably in bed. Does not communicate a whole lot. Cardiac rhythm remains atrial fibrillation at the rate is controlled. The patient remains on treatment of oxygen by nasal cannula. The patient remains on amiodarone 4 mg p.o. twice a day and metoprolol 100 cm p.o. daily and Cardizem 60 mg p.o. 3 times daily. Rest of the medication remains unchanged. The patient remains anticoagulation with Xarelto. White cell count of 10.4 with a hemoglobin 14.8 and a platelet count of 209. Sodium is at 134, BUN is at 17 with a creatinine of 0.6. Potassium level is at 4.3. The patient denies having any specific complaints. No signs of any respiratory distress. On 3 L, the pulse ox is only 94%. On 01/14/2024, no change in patient's condition. Patient is resting comfortably in bed. Remains on oxygen 3 L/min nasal cannula. Tolerating diet. More interactive on today's evaluation. She is being fed by nurses aides. Her atrial fibrillation is under better control. She remains on anticoagulation. She is on Xarelto. At the same time, the patient on metoprolol 150 mg p.o. daily, amiodarone 400 mg p.o. twice a day and Cardizem 60 mg p.o. 3 times daily and the rest of the medication remains unchanged. Objective - Vital Signs Vital signs: Vital Signs Temp 97.5 F L 01/14/24 08:55 Pulse 72 01/14/24 11:17 Resp 17 01/14/24 08:55 BP 106/66 05/27/24 08:55 Pulse Ox 97 01/14/24 08:55 FiO2 40 01/10/24 23:08 Intake & Output 01/13/24 01/14/24 01/14/24 18:59 06:59 18:59 Intake Total 480 Output Total 150 200 Balance 330 -200 Weight 113.398 kg Intake: Oral 480 Output: Urine 150 200 Other: Voiding Method Indwelling Catheter Indwelling Catheter Indwelling Catheter - Exam GENERAL EXAM: Lethargic,, communicating, more alert compared to yesterday currently on 3 L of oxygen by nasal cannula HEAD: Normocephalic and atraumatic EYES: Normal reaction of pupils, equal size. NOSE: Clear with pink turbinates. THROAT: No erythema or exudates. NECK: No masses, no JVD. CHEST: No chest wall deformity. LUNGS: Equal air entry with markedly diminished lung sounds bilaterally. CVS: Irregular S1 and S2 normal with no audible murmur, regular rhythm. No extra heart sounds and irregular rhythm consistent with atrial fibrillation. ABDOMEN: Obese abdomen, no hepatosplenomegaly, active bowel sounds, no guarding or rigidity. SPINE: No scoliosis or deformity SKIN: No rashes CENTRAL NERVOUS SYSTEM: No focal deficits, tone is normal in all 4 extremities. EXTREMITIES: There is no peripheral edema, clubbing, or cyanosis. Peripheral pulses are intact. - Labs CBC & Chem 7: 01/13/24 07:26 01/13/24 07:26 Labs: Abnormal Lab Results - Last 24 Hours (Table) 01/13/24 01/13/24 01/13/24 Range/Units 12:00 16:39 20:33 POC Glucose (mg/dL) 134 H 147 H 141 H (70-110) mg/dL 01/14/24 01/14/24 Range/Units 06:00 08:57 POC Glucose (mg/dL) 135 H 130 H (70-110) mg/dL Assessment and Plan Assessment: acute COPD exacerbation, chest x-ray unremarkable other than a mild retrocardiac opacity, suspect atelectasis. The patient had a component of hypercapnic respiratory failure acute on chronic and the patient is currently on 3 L of oxygen by nasal cannula and the patient was taken off the BiPAP Acute on chronic hypoxemic respiratory failure, currently off BiPAP and on 3 L of oxygen by nasal cannula Altered mental status, suspect component of acute metabolic encephalopathy and hypercapnia, improving and the patient is much more alert and awake on today's evaluation Nevertheless, she has profound debilitated and weak and there is generalized motor weakness in all 4 extremities. History of paroxysmal atrial fibrillation/flutter, chronically anticoagulated on Xarelto, the patient is currently on amiodarone, metoprolol and Cardizem and cardiology on the case. Sick sinus syndrome the patient has a pacemaker in place History of pulmonary embolism, maintained on anticoagulation with Xarelto History of diabetes mellitus History of adrenal insufficiency, currently on oral hydrocortisone History of hyperthyroidism, on methimazole History of hyperlipidemia History of seizure disorder History of obstructive sleep apnea, without CPAP Chronic pain, maintained on [place]'s outpatient, patient was given a dose of Narcan in the emergency room reportedly without significant response. Frequent falls Morbid obesity, with a BMI of 40.4 kg/m History of anxiety Plan: No change in her condition, clinically stable, hemodynamically stable, respiratory status is also stable. Respiratory status stable at 3 L of O2 nasal cannula Management of A-fib per cardiology Metoprolol 150 mg p.o. daily Cardizem 60 mg p.o. 3 times daily Oral amiodarone 400 mg p.o. twice a day Monitor respiratory status Currently on 3 L of O2 nasal cannula Continue DuoNeb updrafts Continue monitoring the mental status and watch for any signs of hypercapnic respiratory failure and CO2 narcosis Procalcitonin level has been low Patient is anticoagulated with Xarelto Continue p.o. hydrocortisone Acute Care Assistant on the case Very much lethargic, quite debilitated. Resting comfortably in bed. Excessive motor weakness in all 4 extremities. Bedridden. DNR/DNI CODE STATUS. Pulmonary critical care services will sign off.
[2024-01-14 16:41] LABS: Glucose,Whole Blood 149 mg/dL (70-110)
[2024-01-14 20:18] LABS: Glucose,Whole Blood 118 mg/dL (70-110)
[2024-01-14 21:37] VITALS: RESP 16
[2024-01-15 06:24] LABS: Glucose,Whole Blood 114 mg/dL (70-110)
[2024-01-15 08:24] LABS: Basophils % (A) 0 %; Eosinophils % (A) 0 %; HCT 44.4 % (34.0-46.0); HGB 13.3 gm/dL (11.4-16.0); Hypochromasia Slight; Lymphocytes # (A) 2.4 k/uL (1.0-4.8); Lymphocytes % (A) 32 %; MCH 30.1 pg (25.0-35.0); MCV 100.1 fL (80.0-100.0); Macrocytosis Slight; Mean Platelet Volume 9.9; Monocytes # (A) 0.8 k/uL (0-1.0); Monocytes % (A) 11 %; Neutrophils % (A) 54 %; Platelet Count 259 k/uL (150-450); RBC 4.43 m/uL (3.80-5.40); RDW 14.6 % (11.5-15.5); WBC 7.5 k/uL (3.8-10.6)
[2024-01-15 08:41] LABS: Glucose,Whole Blood 119 mg/dL (70-110)
[2024-01-15 08:59] LABS: ALT 10 U/L (4-34); AST 27 U/L (14-36); African American GFR (CKD) >90 (>60 ml/min/1.73 sqM); Albumin 2.9 g/dL (3.5-5.0); Alkaline Phosphatase <20 U/L (38-126); Anion Gap 5 mmol/L; Blood Urea Nitrogen 16 mg/dL (7-17); Calcium 8.4 mg/dL (8.4-10.2); Carbon Dioxide 31 mmol/L (22-30); Chloride 99 mmol/L (98-107); Glucose 117 mg/dL (74-99); Non-African American GFR(CKD) >90 (>60 ml/min/1.73 sqM); Sodium 135 mmol/L (137-145); Total Bilirubin 0.7 mg/dL (0.2-1.3); Total Protein 5.3 g/dL (6.3-8.2)
[2024-01-15 09:02] LABS: Potassium 4.6 mmol/L (3.5-5.1)
[2024-01-15 11:47] LABS: Glucose,Whole Blood 120 mg/dL (70-110)
--- NOTE | 2024-01-15 12:54 | P.DS ---
Providers Date of admission: 01/08/24 14:13 Expected date of discharge: 01/15/24 Attending physician: James Alarcon Consults: 01/08/24 14:11 Consult Physician Urgent Consulting Provider: Jodi Michaels Consult Reason/Comments: Acute encephalopathy, hypercarbia, chronic respiratory failure Do you want consulting provider notified?: Yes 01/09/24 03:07 Consult Physician Routine Consulting Provider: Amaury Gilbert Consult Reason/Comments: afib/chf Do you want consulting provider notified?: Yes 01/10/24 23:24 Consult Physician Routine Consulting Provider: Vamsi Leong Consult Reason/Comments: afib rvr Do you want consulting provider notified?: Yes, Notify in am Primary care physician: [facility] Course: Discharge diagnoses; _Acute respiratory failure: _COPD exacerbation: _Severe hypercapnia with carbon dioxide retention: Continue oxygen supplementation Continue breathing treatments _A-fib with RVR: Continue oral Cardizem 60 mg 3 times daily and amiodarone 400 mg twice daily for 7 days, followed by 200 mg twice daily for 7 days, then 200 mg daily Continue metoprolol succinate 150 mg daily _Possible medication side effect or interaction combination between her pain meds, gabapentin, and Depakote. Slightly better so far specially that patient has not been on any of her original medication yet. Neurontin and [place] were discontinued during this admission _Type 2 diabetes Monitor blood sugar levels, continue current insulin regimen _Adrenal insufficiency: Has been on Cortef and fludrocortisone continue medication still using midodrine for hypotension as well. _History of pulmonary embolism: Continue Xarelto _Chronic pain plan: Continue Tylenol _Parkinsonism: Has been on Sinemet as a medication. _ Decub ulcer: Stage I very small on the buttocks area, continue wound care _History of seizure: Has been on Keppra 1500 mg twice a day. _Hyperlipidemia: Continue Lipitor. _Worsening mental status and mild dementia has been on Aricept 10 mg a day. _Hypothyroidism: Has been on Tapazole 15 mg daily. Hospital course; 78-year-old morbidly obese [facility] who was sent to the emergency department [facility] because of altered mental status was known to have multiple medical problem found to be completely confused not responding well she was quite hypoxic she is on chronic respiratory failure on 4 L of oxygen on more regular basis. EMS were called to the scene seen patient who continued to be quite bit confused and significant altered mental status in the having half dose of Narcan she still did not respond well. Continue to be quite hypoxic and putting her on BiPAP and then do bring her to the emergency department at [facility] where was seen and evaluated. She has multiple medical problem on multiple medication and oxygen she was diagnosed with acute respiratory failure with severe carbon dioxide retention as hypercapnia with suppression related probably to medication and medication interaction with side effect. Also possibility of infection as there possibility of overdose versus seizure activity. Her laboratory value showed with her ABG pCO2 of 78 with HCO3 of 42 pH of 7.35, hemoglobin 14.9 with hematocrit 50.2 with normal white blood cell. Blood sugars mildly elevated with lactic acid 1.7 UA was slightly Positive chemistry with carbon dioxide of 33 BUN of 30 creatinine 1.65 with calcium level slightly below. Ammonia level was normal at 25 with troponin 0.015. Brain CAT scan shows no acute intracranial process with nonspecific white matter changes secondary to small vessel disease. C atelectasis versus pneumonia. EKG shows normal sinus rhythm with nonspecific finding. Patient was kept on BiPAP continue supportive care will consult pulmonary patient have higher possibly to end up on mechanical ventilation at this point. Hest x-ray showed mild left lower lobe infiltrate correlate with 01/09/2024: Patient remain in ER hold on BiPAP for respiratory distress and failure, continue to have significant confusion and worsening mental status, she still having A-fib with RVR with pulse rate running at 140 bpm despite 10 mg of Cardizem drip, patient be seen cardiology today and she looks like she need to be transferred to the ICU for further management she is remain no code and DO NOT RESUSCITATE at this point we will continue current management with the interaction to medication along possibility of overdose along with her severe COPD exacerbation with severe hypercapnia and CO2 retention. Prognosis at this point specially with was going on with patient cardiopulmonary ramires is very not clear and there is a big possibility for high comorbidity and high mortality at this point. 01/10/2024: Still in mild respiratory failure, still on BiPAP through the night higher flow oxygen daytime with pulse ox little bit better. Still seen pulmonary and agree with the current plan and management. A-fib ramires patient remain on Toprol-XL 100 mg daily, Cardizem CD 180 mg daily still on amiodarone drip started back yesterday and continue anticoagulation. She is responding little bit better today physically but still quite bit confuse d and still not stable medically at this point. Echocardiogram still pending at this point. 12/12/2023: She is still not doing well still in mild distress is very weak in all 4 extremities, still complaining about soreness on the sacrum area which is stage I smaller area being cared for by the nurses and the aide but patient keep complaining about it all the time bother her more than her respiration and pulse rate. She is on 3 L O2 running at 93 percentile, her laboratory value today showing hemoglobin of 15.6 hematocrit 50.4, BUN/creatinine are normal blood sugar still running in the low 100, pulse rate still running in the high 100- 140. She is back on amiodarone drip today still on Cardizem as well. Her COPD exacerbation been well-managed and currently off BiPAP still on O2, her altered mental status still showing acute metabolic encephalopathy with hypercapnia and hypoxia causing the generalized profound weakness. Still having paroxysmal A-fib with pulse rate running over 114 remain on amiodarone drip and Cardizem drip. Patient still critically ill at this point comprehension is not 100 percentile and slightly better lethargic when she talk not able to express herself in full. 01/11. Patient seen and examined. Patient was switched from IV amiodarone to oral amiodarone. Denies any shortness of breath denies any chest pain. 01/12. Patient seen and examined. Blood work this morning showed WBC 10.4, hemoglobin 14.8, platelet count 209, sodium 134, potassium 4.3, BUN 17, creatinine 0.66, glucose 122,. Currently on 3 l of oxygen. Does not look any acute distress. 01/13. Patient seen and examined patient is alert. Currently on 2 L of oxygen 01/14. Patient seen and examined. Being discharged back to rehab. Cardiology recommend Continue oral Cardizem 60 mg 3 times daily and amiodarone 400 mg twice daily for 7 days, followed by 200 mg twice daily for 7 days, then 200 mg daily Continue metoprolol succinate 150 mg daily PHYSICAL EXAMINATION: GENERAL: The patient is alert, chronically ill looking HEENT: Pupils are round and equally reacting to light. EOMI. No scleral icterus. No conjunctival pallor. Normocephalic, atraumatic. No pharyngeal erythema. No thyromegaly. CARDIOVASCULAR: S1 and S2 present. No murmurs, rubs, or gallops. PULMONARY: Chest is clear to auscultation, no wheezing or crackles. ABDOMEN: Soft, nontender, nondistended, normoactive bowel sounds. No palpable organomegaly. MUSCULOSKELETAL: No joint swelling or deformity. EXTREMITIES: No cyanosis, clubbing, or pedal edema. NEUROLOGICAL: Gross neurological examination did not reveal any focal deficits. SKIN: No rashes. Dictation was produced using UNI[employer] dictation software. please excuse any grammatical, word or spelling errors. Patient Condition at Discharge: Fair Plan - Discharge Summary Discharge Rx Participant: No New Discharge Prescriptions: New Amiodarone [Cordarone] 200 mg PO BID tab Ipratropium-Albuterol Nebulize [Duoneb 0.5 mg-3 mg/3 ml Soln] 3 ml INHALATION RT-QID #0 each Metoprolol Succinate (ER) [Toprol XL] 150 mg PO DAILY@0900 #0 tab Diltiazem Oral [Cardizem*] 60 mg PO TID #0 tab Amiodarone [Cordarone] 400 mg PO BID tab Continue Rivaroxaban [Xarelto] 20 mg PO DAILY@0900 FLUoxetine HCL [PROzac] 20 mg PO DAILY@0900 levETIRAcetam [Keppra] 1,500 mg PO BID@0900,2100 Pantoprazole [Protonix] 40 mg PO DAILY@0600 Losartan [Cozaar] 12.5 mg PO DAILY@0900 Tirzepatide [Mounjaro] 5 mg SQ TH@0900 Furosemide [Lasix] 10 mg PO DAILY@0600 Mag Hydrox/Aluminum Hyd/Simeth [Mylanta Maximum Strength Pkt] 30 ml PO Q4H PRN PRN Reason: Gi Upset Carbidopa-Levodopa 25-100 mg [Sinemet 25-100 mg] 1 tab PO TID@0600,1300,2100 Diclofenac Sodium Gel [Voltaren 1% Gel] 2 gm TOPICAL BID PRN PRN Reason: LOWER BACK PAIN Benzocaine/Menthol Lozeng [Cepacol lozenge] 1 lozenge MUCOUS MEM Q2H PRN PRN Reason: Sore Throat Rosuvastatin [Crestor] 20 mg PO MOWEFR@2100 Insulin Glargine,Hum.rec.anlog [Lantus Solostar Pen] 20 units SQ DAILY@0900 Midodrine HCl [ProAmatine] 10 mg PO TID@0900,1300,2100 cloBAZam 10 mg PO HS@2100 methIMAzole [Tapazole] 15 mg PO DAILY@0600 guaiFENesin [guaiFENesin Oral Solution] 200 mg PO Q4H PRN PRN Reason: Cough Acetaminophen [Tylenol 8 Hour] 650 mg PO Q4H PRN PRN Reason: Pain Insulin Lispro [humaLOG Kwikpen] 11 unit SQ TID@0800,1200,1700 Calcium Carbonate [Tums] 1,000 mg PO Q6H PRN PRN Reason: indigestion Hydrocortisone 20 mg PO BID@0900,2100 Menthol [Biofreeze] 1 applic TOPICAL DAILY PRN PRN Reason: left shoulder pain SUMAtriptan succinate [Imitrex] 25 mg PO BID PRN PRN Reason: Headache Bismuth Subsalicylate [Pepto-Bismol] 524 mg PO Q4H PRN PRN Reason: Diarrhea Divalproex [Depakote] 500 mg PO BID@0900,2100 Calcium Carbonate/Vitamin D3 [Calcium 600 mg-D3 10 Mcg (400 Iu)] 1 cap PO BID@0900,2100 Temazepam [Restoril] 7.5 mg PO HS@2100 Fluticasone Nasal Naches [Flonase Nasal Naches] 2 spray EA NOSTRIL HS@2100 Donepezil [Aricept] 10 mg PO HS@2100 Discontinued Gabapentin 600 mg PO TID@0600,1200,2100 LORazepam 0.5 mg PO TID@0600,1300,2100 HYDROcodone/APAP 7.5-325MG [[place] 7.5-325] 1 tab PO HS PRN PRN Reason: Pain HYDROcodone/APAP 7.5-325MG [[place] 7.5-325] 1 tab PO BID@0600,1300 Metoprolol Succinate (ER) [Toprol XL] 100 mg PO DAILY@0900 DULoxetine HCL [Cymbalta] 30 mg PO BID@0900,2100 HYDROcodone/APAP 7.5-325MG [[place] 7.5-325] 2 tab PO HS@2100 Diltiazem Cd [Cardizem CD] 180 mg PO DAILY@0900 Discharge Medication List Rivaroxaban [Xarelto] 20 mg PO DAILY@0907/07/14 [History] FLUoxetine HCL [PROzac] 20 mg PO DAILY@0901/19/20 [History] Midodrine HCl [ProAmatine] 10 mg PO TID@0900,1300,209910/09/21 [History] cloBAZam 10 mg PO HS@209907/06/22 [History] levETIRAcetam [Keppra] 1,500 mg PO BID@09,209909/01/22 [History] Pantoprazole [Protonix] 40 mg PO DAILY@0612/24/22 [History] guaiFENesin [guaiFENesin Oral Solution] 200 mg PO Q4H PRN 12/24/22 [History] methIMAzole [Tapazole] 15 mg PO DAILY@0612/24/22 [History] Acetaminophen [Tylenol 8 Hour] 650 mg PO Q4H PRN 01/10/23 [History] Insulin Lispro [humaLOG Kwikpen] 11 unit SQ TID@0800,1200,1700 01/10/23 [History] Losartan [Cozaar] 12.5 mg PO DAILY@89901/10/23 [History] Furosemide [Lasix] 10 mg PO DAILY@59904/16/23 [History] Mag Hydrox/Aluminum Hyd/Simeth [Mylanta Maximum Strength Pkt] 30 ml PO Q4H PRN 04/16/23 [History] Tirzepatide [Mounjaro] 5 mg SQ TH@89904/16/23 [History] Calcium Carbonate [Tums] 1,000 mg PO Q6H PRN 06/25/23 [History] Carbidopa-Levodopa 25-100 mg [Sinemet 25-100 mg] 1 tab PO TID@0600,1300,209906/25/23 [History] Hydrocortisone 20 mg PO BID@899,209906/25/23 [History] Menthol [Biofreeze] 1 applic TOPICAL DAILY PRN 06/25/23 [History] Diclofenac Sodium Gel [Voltaren 1% Gel] 2 gm TOPICAL BID PRN 07/27/23 [History] Benzocaine/Menthol Lozeng [Cepacol lozenge] 1 lozenge MUCOUS MEM Q2H PRN 01/08/24 [History] Bismuth Subsalicylate [Pepto-Bismol] 524 mg PO Q4H PRN 01/08/24 [History] Calcium Carbonate/Vitamin D3 [Calcium 600 mg-D3 10 Mcg (400 Iu)] 1 cap PO BID@899,209901/08/24 [History] Divalproex [Depakote] 500 mg PO BID@0900,209901/08/24 [History] Donepezil [Aricept] 10 mg PO HS@209901/08/24 [History] Fluticasone Nasal Naches [Flonase Nasal Naches] 2 spray EA NOSTRIL HS@209901/08/24 [History] Insulin Glargine,Hum.rec.anlog [Lantus Solostar Pen] 20 units SQ DAILY@89901/08/24 [History] Rosuvastatin [Crestor] 20 mg PO MOWEFR@209901/08/24 [History] SUMAtriptan succinate [Imitrex] 25 mg PO BID PRN 01/08/24 [History] Temazepam [Restoril] 7.5 mg PO HS@209901/08/24 [History] Amiodarone [Cordarone] 200 mg PO BID tab 01/15/24 [Rx] Amiodarone [Cordarone] 400 mg PO BID tab 01/15/24 [Rx] Diltiazem Oral [Cardizem*] 60 mg PO TID #0 tab 01/15/24 [Rx] Ipratropium-Albuterol Nebulize [Duoneb 0.5 mg-3 mg/3 ml Soln] 3 ml INHALATION RT-QID #0 each 01/15/24 [Rx] Metoprolol Succinate (ER) [Toprol XL] 150 mg PO DAILY@0900 #0 tab 01/15/24 [Rx] Follow up Appointment(s)/Referral(s): Teresa Helton MD [Primary Care Provider] - 1-2 days Farrukh Armenta DO [STAFF PHYSICIAN] - 1 Week Activity/Diet/Wound Care/Special Instructions: Continue amiodarone 400 mg twice daily till 01/17/2024, followed by 200 mg twice daily for 7 days, then 200 mg daily Continue increased dose of metoprolol succinate 150 mg daily Discharge Disposition: TRANSFER TO SNF/ECF
--- NOTE | 2024-01-15 13:55 | P.PN ---
Subjective Progress Note Date: 01/15/24 Principal diagnosis: Acute on chronic hypoxic respiratory failure secondary to acute exacerbation of COPD Patient is a 78-year-old white female with past medical history significant for COPD, chronic hypoxemic respiratory failure, obstructive sleep apnea without CPAP atrial fibrillation and is anticoagulated on Xarelto, pulmonary embolism, adrenal insufficiency, prior splenectomy, type 2 diabetes mellitus, seizure disorder, among many other comorbidities. She is reportedly a longterm resident and resides at [facility]. She was noted to be altered, more so than normal. It was reported that she took her oxygen off at the longterm. On arrival to the emergency room, she was noted to be somnolent. A VBG indicated pCO2 of 78 and pH of 7.35. She is currently resting in bed, on BiPAP with settings 12/6 and FiO2 40%. She is achieving tidal volumes of 350-400 and r espiratory rate is in the mid teens. She remains lethargic, but will briefly wake up and answer some questions. According to the nurse, this is an improvement from earlier. She is only oriented to self. I did order a follow- up ABG with current BiPAP settings which shows pO2 of 92, pCO2 of 54, pH of 7.44. Note, that she also has chronic back pain, and takes [place] on outpatient basis. She did receive some Narcan while in the emergency room, reportedly without significant response. She does take Aricept on an outpatient basis, and I am uncertain of her baseline mentation. Noncontrast CT of the brain did not show any acute intracranial process. Chest x-ray done on arrival shows a possible retrocardiac infiltrate versus atelectasis. She has remained afebrile. CBC unremarkable, no leukocytosis. CMP also unremarkable. LFTs not significantly elevated. Ammonia 25. Lactic acid 1.7. Urinalysis not concerning for UTI. Urine tox screen positive for opiates and benzodiazepines. EKG shows normal sinus rhythm without any obvious acute ischemic changes. Troponin 0.015. Current vital signs stable. On today's evaluation of 01/10/2024, the patient is being seen for a follow-up. She is sluggishly responsive. She is able to communicate. She remains in atrial fibrillation. The patient was treated with amiodarone and currently she is on metoprolol at a dose of 150 mg p.o. daily and Cardizem CD to 40 mg p.o. daily. She was taken off the BiPAP this morning and the patient is currently on 3 L of oxygen by nasal cannula. Less tachycardic compared to yesterday. No recent blood work from today. Procalcitonin level was low. TSH is at 3.6. The patient is currently off the amiodarone drip and off the Cardizem drip. Blood pressure is stable for now. He is on chronically on anticoagulation with Xarelto. She is on Levemir insulin 20 units daily and she is also on Cortef 20 mg p.o. twice daily suspecting underlying adrenal insufficiency. On today's evaluation of 01/11/2024, patient is being seen for a follow-up. Patient is very much lethargic and arousable. He has profound weakness in all 4 extremities. Essentially bedridden. Elevated to cough and reach out and grab things with her hands is extremely weak and the patient seems to be quite debilitated at this point in time. Nevertheless, she is arousable and she communicates. No respiratory distress and the patient remains on oxygen at 3 L nasal cannula with a pulse ox of 93%. The white cell count is 11 with a hemoglobin of 15.6 and a platelet count of 221. BUN is 19 with a creatinine of 0.7 and serum bicarb is at 32 with a sodium level of 134 and a potassium level is at 4.0. Cardiology is on the case regarding their history of atrial fibrillation. The patient was maintained on amiodarone drip and this was discontinued. The patient was started on Cardizem drip at 5 mg an hour by cardiology as the patient was still tachycardic with a heart rate of 160. Based on all this, the patient was kept on amiodarone drip and Cardizem is running at 5 mg an hour. Oral Cardizem is on hold and metoprolol dose was adjusted and the patient is currently on a dose of 150 mg p.o. twice a day. Echocardiogram was also ordered by cardiology. 01/12/2024, the patient is being seen for a follow-up. Patient is very lethargic, somnolent and undergoes limited communication. She is arousable. She is essentially bedridden. Motor functions are quite weak in all 4 extremities and the patient says only few words upon stimulation. She denies having any chest pain. She denies having any shortness of breath. She remains on oxygen 3 L/min nasal cannula. No new labs from today. She remains in atrial fibrillation at the rate is under better control for now. She is on a combination of medications and drips have been essentially discontinued including amiodarone and Cardizem drip and the patient is currently on metoprolol at a dose of 150 mg p.o. daily and Cardizem 60 mg p.o. 3 times daily. She remains on amiodarone 5 mg p.o. twice daily. She is on Xarelto. She is on Cortef for suspected adrenal insufficiency. She is on Lasix 10 mg p.o. daily. 01/13/2024, the patient is resting comfortably in bed. Does not communicate a whole lot. Cardiac rhythm remains atrial fibrillation at the rate is c ontrolled. The patient remains on treatment of oxygen by nasal cannula. The patient remains on amiodarone 4 mg p.o. twice a day and metoprolol 100 cm p.o. daily and Cardizem 60 mg p.o. 3 times daily. Rest of the medication remains unchanged. The patient remains anticoagulation with Xarelto. White cell count of 10.4 with a hemoglobin 14.8 and a platelet count of 209. Sodium is at 134, BUN is at 17 with a creatinine of 0.6. Potassium level is at 4.3. The patient denies having any specific complaints. No signs of any respiratory distress. On 3 L, the pulse ox is only 94%. On 01/14/2024, no change in patient's condition. Patient is resting comfortably in bed. Remains on oxygen 3 L/min nasal cannula. Tolerating diet. More interactive on today's evaluation. She is being fed by nurses aides. Her atrial fibrillation is under better control. She remains on anticoagulation. She is on Xarelto. At the same time, the patient on metoprolol 150 mg p.o. daily, amiodarone 400 mg p.o. twice a day and Cardizem 60 mg p.o. 3 times daily and the rest of the medication remains unchanged. Patient was reevaluated today on 01/15/2024, patient is doing well, relatively asymptomatic, feeling much better today compared to how she felt since admission. Patient is on 2 L nasal cannula, O2 saturation ranging between 94 to 98%. WBC 7.5 hemoglobin 13.3 electrolytes are normal renal profile is normal Objective - Vital Signs Vital signs: Vital Signs Temp 97.7 F 01/15/24 11:13 Pulse 70 01/15/24 11:13 Resp 16 01/15/24 11:13 BP 94/61 01/15/24 11:13 Pulse Ox 94 L 01/15/24 11:13 FiO2 40 01/10/24 23:08 Intake & Output 01/14/24 01/15/24 01/15/24 18:59 06:59 18:59 Intake Total 400 322 Output Total 375 700 400 Balance -375 -300 -78 Intake: Intake, IV Titration 400 Amount Sodium Chloride 0.9% 1, 400 000 ml @ 50 mls/hr IV . Q20H [facility] Rx#:[id number] Oral 322 Output: Urine 375 700 400 Uretheral (Shah) 400 Other: Voiding Method Indwelling Catheter Indwelling Catheter Indwelling Catheter - Exam GENERAL EXAM: 78-year-old female in no distress, relatively asymptomatic. HEAD: Normocephalic and atraumatic EYES: Normal reaction of pupils, equal size. NOSE: Clear with pink turbinates. THROAT: No erythema or exudates. NECK: No masses, no JVD. CHEST: No chest wall deformity. LUNGS: Equal air entry with markedly diminished lung sounds bilaterally. CVS: Irregular S1 and S2 normal with no audible murmur, regular rhythm. No extra heart sounds and irregular rhythm consistent with atrial fibrillation. ABDOMEN: Obese abdomen, no hepatosplenomegaly, active bowel sounds, no guarding or rigidity. SKIN: No rashes CENTRAL NERVOUS SYSTEM: No focal deficits, tone is normal in all 4 extremities. EXTREMITIES: There is no peripheral edema, clubbing, or cyanosis. Peripheral pulses are intact. - Labs CBC & Chem 7: 01/15/24 07:30 01/15/24 07:30 Labs: Abnormal Lab Results - Last 24 Hours (Table) 01/14/24 01/14/24 01/15/24 Range/Units 16:39 20:14 06:22 MCV (80.0-100.0) fL MCHC (31.0-37.0) g/dL Sodium (137-145) mmol/L Carbon Dioxide (22-30) mmol/L Glucose (74-99) mg/dL POC Glucose (mg/dL) 149 H 118 H 114 H (70-110) mg/dL Alkaline Phosphatase (38-126) U/L Total Protein (6.3-8.2) g/dL Albumin (3.5-5.0) g/dL 01/15/24 01/15/24 01/15/24 Range/Units 07:30 07:30 08:39 MCV 100.1 H (80.0-100.0) fL MCHC 30.0 L (31.0-37.0) g/dL Sodium 135 L (137-145) mmol/L Carbon Dioxide 31 H (22-30) mmol/L Glucose 117 H (74-99) mg/dL POC Glucose (mg/dL) 119 H (70-110) mg/dL Alkaline Phosphatase <20 L (38-126) U/L Total Protein 5.3 L (6.3-8.2) g/dL Albumin 2.9 L (3.5-5.0) g/dL 01/15/24 Range/Units 11:41 MCV (80.0-100.0) fL MCHC (31.0-37.0) g/dL Sodium (137-145) mmol/L Carbon Dioxide (22-30) mmol/L Glucose (74-99) mg/dL POC Glucose (mg/dL) 120 H (70-110) mg/dL Alkaline Phosphatase (38-126) U/L Total Protein (6.3-8.2) g/dL Albumin (3.5-5.0) g/dL Assessment and Plan Assessment: Impression: Acute on chronic hypoxic respiratory failure Acute COPD exacerbation Paroxysmal atrial fibrillation/flutter Acute metabolic encephalopathy History of adrenal insufficiency on oral hydrocortisone History of hypothyroidism maintained on methimazole History of seizure disorder History of obstructive sleep apnea syndrome Chronic pain syndrome Morbid obesity Recommendation: Continue present supportive care measures Continue present course of bronchodilators Will clear for discharge if cleared by other consultants patient is being considered to go back to rehab Cardiology is recommending oral Cardizem and oral amiodarone Time with Patient: Less than 30
[2024-01-15 16:36] VITALS: BP 104/69; PULSE 76; TEMP 97.8
[2024-01-15 16:38] LABS: Glucose,Whole Blood 197 mg/dL (70-110)
[2024-01-19] MEDS ORDERED: AMIODARONE 200 MG TAB PO SCH (21:00)
== END 2024-01-15 17:55 | DRG 189 ==
LOC: EC 09:47 → EEVIPCON 14:13 → 3SCARD 14:13
PROVIDERS: ADMIT Internal Medicine Geriatric Medicine; ATTEND Internal Medicine Geriatric Medicine
PROC: 5A09457 Assistance with Respiratory Ventilation, 24-96 Consecutive Hours, Continuous Positive Airway Pressure (ICD-10-PCS; principal; 2024-01-08)
PROC: 3E033RZ Introduction of Antiarrhythmic into Peripheral Vein, Percutaneous Approach (ICD-10-PCS; 2024-01-09)
DX: J96.22 Acute and chronic respiratory failure with hypercapnia (principal); G93.41 Metabolic encephalopathy; G92.8 Other toxic encephalopathy; I50.33 Acute on chronic diastolic (congestive) heart failure; J18.9 Pneumonia, unspecified organism; J44.1 Chronic obstructive pulmonary disease with (acute) exacerbation; E27.40 Unspecified adrenocortical insufficiency; I67.89 Other cerebrovascular disease; Z68.41 Body mass index [BMI] 40.0-44.9, adult; F02.A3 Dementia in other diseases classified elsewhere, mild, with mood disturbance; F02.A4 Dementia in other diseases classified elsewhere, mild, with anxiety; I48.3 Typical atrial flutter; J44.0 Chronic obstructive pulmonary disease with (acute) lower respiratory infection; J98.11 Atelectasis; I49.5 Sick sinus syndrome; E11.41 Type 2 diabetes mellitus with diabetic mononeuropathy; L89.301 Pressure ulcer of unspecified buttock, stage 1; I95.9 Hypotension, unspecified; G20.C Parkinsonism, unspecified; I11.0 Hypertensive heart disease with heart failure; G40.909 Epilepsy, unspecified, not intractable, without status epilepticus; E66.01 Morbid (severe) obesity due to excess calories; I48.0 Paroxysmal atrial fibrillation; J96.21 Acute and chronic respiratory failure with hypoxia; F32.A Depression, unspecified; E05.90 Thyrotoxicosis, unspecified without thyrotoxic crisis or storm; Z99.81 Dependence on supplemental oxygen; G57.93 Unspecified mononeuropathy of bilateral lower limbs; M54.9 Dorsalgia, unspecified; M81.0 Age-related osteoporosis without current pathological fracture; Z79.4 Long term (current) use of insulin; Z66 Do not resuscitate; I08.1 Rheumatic disorders of both mitral and tricuspid valves; T42.6X5A Adverse effect of other antiepileptic and sedative-hypnotic drugs, initial encounter; T40.2X5A Adverse effect of other opioids, initial encounter; E78.5 Hyperlipidemia, unspecified; R29.6 Repeated falls; M79.7 Fibromyalgia; G47.33 Obstructive sleep apnea (adult) (pediatric); G89.4 Chronic pain syndrome; K21.9 Gastro-esophageal reflux disease without esophagitis; M19.90 Unspecified osteoarthritis, unspecified site; L40.9 Psoriasis, unspecified; Z79.891 Long term (current) use of opiate analgesic; Z79.52 Long term (current) use of systemic steroids; Z79.01 Long term (current) use of anticoagulants; Z79.899 Other long term (current) drug therapy; Z79.85 Long-term (current) use of injectable non-insulin antidiabetic drugs; Z95.0 Presence of cardiac pacemaker; Z87.891 Personal history of nicotine dependence; Z74.01 Bed confinement status; Z86.711 Personal history of pulmonary embolism; Z85.51 Personal history of malignant neoplasm of bladder; Z96.611 Presence of right artificial shoulder joint; Z71.3 Dietary counseling and surveillance; Z88.5 Allergy status to narcotic agent; Z88.8 Allergy status to other drugs, medicaments and biological substances; Z91.040 Latex allergy status
CPT/HCPCS: 36415; 36600; 51702; 70450; 71045; 71046; 80048; 80053; 80164; 80306; 80320; 81001; 82140; 82803; 82805; 83605; 84145; 84443; 84484; 85025; 85027; 85610; 85730; 93005; 93306; 94640; 94660; 94760; 96365; 96366; 96367; 96375; 99291